=== PATIENT | female | born 2000 | race Caucasian/White ===

== ENCOUNTER 2019-10-09 16:09 | Emergency (ER) | payer SELFPAY ==
[~2019-10-09] VITALS: Ht 175 cm; Wt 88.6 kg
--- NOTE | 2019-10-09 16:32 | ED Lower Extremity ---
General Chief Complaint: Lower Extremity Stated Complaint: R KNEE PAIN Nursing Triage Note: PT TO ED W/ C/O RT KNEE PAIN ONSET AFTER BEING STRUCK BY HER DOG AT HOME. Nursing Sepsis Screen: No Definite Risk Source: patient Exam Limitations: no limitations History of Present Illness Date Seen by Provider: Oct 09, 2019 Time Seen by Provider: 16:29 Initial Comments To ER with right knee pain. She was standing with her knee locked, her dog. The medial aspect of the lower leg causing it to buckle Onset: just prior to arrival Pain/Injury Location: right knee Method of Injury: direct blow Modifying Factors: Worse With Movement Allergies and Home Medications Patient Home Medication List Home Medication List Reviewed: Yes Review of Systems Constitutional: see HPI EENTM: see HPI Respiratory: no symptoms reported Cardiovascular: no symptoms reported Genitourinary: no symptoms reported Musculoskeletal: see HPI Skin: no symptoms reported Psychiatric/Neurological: No Symptoms Reported Past Mxpafum-Zddawz-Tygwgz Hx Patient Social History Alcohol Use: Denies Use Recreational Drug Use: No Smoking Status: Current Everyday Smoker Type Used: Electronic/Vapor Recent Foreign Travel: No Contact w/Someone Who Travel: No Recent Infectious Disease Expo: No Recent Hopitalizations: No Past Medical History Surgeries: Yes (DENTAL) Respiratory: No Cardiac: No Neurological: No Genitourinary: No Gastrointestinal: No Musculoskeletal: Yes Scoliosis Endocrine: No HEENT: No Cancer: No Psychosocial: Yes ADD/ADHD, Sleep Difficulties, Anxiety, Suicide Attempts, Bipolar, Schizophrenia, Depression Integumentary: No Blood Disorders: No Physical Exam Vital Signs Vital Signs - First Documented 10/09/19 16:19 Temp 36.9 Pulse 81 Resp 18 B/P (MAP) 111/77 (88) Pulse Ox 98 O2 Delivery Room Air Capillary Refill : Less Than 3 Seconds Height, Weight, BMI Height: '" Weight: lbs. oz. kg; 28.00 BMI Method: General Appearance: WD/WN, no apparent distress HEENT: PERRL/EOMI, normal ENT inspection Respiratory: no respiratory distress, no accessory muscle use (.) Hips: bilateral hip non-tender, bilateral hip normal inspection, bilateral hip normal range of motion Legs: bilateral leg non-tender, bilateral leg normal inspection, bilateral leg normal range of motion Knees: left knee non-tender; bilateral knee normal inspection, bilateral knee normal range of motion; right knee pain, right knee other (no palpable effusion and ecchymosis erythema or ligamentous instability) Feet: bilateral foot non-tender, bilateral foot normal inspection, bilateral foot normal range of motion Neurologic/Psychiatric: alert, normal mood/affect, oriented x 3 Skin: normal color, warm/dry Progress/Results/Core Measures Results/Orders My Orders Orders - NAOMIE CORONA APRN Knee, Right, 3 Views (10/09/19 16:18) Vital Signs/I&O 10/09/19 16:19 Temp 36.9 Pulse 81 Resp 18 B/P (MAP) 111/77 (88) Pulse Ox 98 O2 Delivery Room Air Blood Pressure Mean: 88 Departure Impression Primary Impression: Internal derangement of right knee Disposition: HOME, SELF-CARE Condition: Stable Departure-Patient Inst. Decision time for Depature: 16:31 Referrals: NO,LOCAL PHYSICIAN (PCP) Primary Care Physician Patient Instructions: Internal Derangement of the Knee Add. Discharge Instructions: 1. Crutches as needed for pain with walking. Whenever you're able to walk without significant pain then you can quit using the crutches. Pain persists into next week follow up with primary care to discuss MRI. NAOMIE CORONA APRN Oct 09, 2019 16:32
--- NOTE | 2019-10-09 16:37 | NUR ---
PT IN RADIOLOGY AT THIS TIME.
--- NOTE | 2019-10-09 17:04 | Diagnostic Imaging Report ---
INDICATION: Injury, right knee pain. EXAMINATION: Three views of the right knee were obtained. FINDINGS: No fracture, dislocation or other abnormality. IMPRESSION: Normal right knee. Dictated by: Dictated on workstation # [id number]
[2019-10-09 17:18] VITALS: BP 0/0
--- NOTE | 2019-10-09 17:18 | NUR ---
PT DISCHARGED TO HOME W/ CRUTCHES ET INSTR. PT TO F/U W/ PCP ET RETURN IF SYMPTOMS CHANGE OR GET WORSE. UNDERSTANDING VOICED.
--- OUTSIDE RECORDS SUMMARY | 2019-10-10 20:20 | XMS REPORT | Clinical Summary ---
Author Author Admin, Son Rodriguez [facility] Address Unknown Phone Unavailable Allergies, Adverse Reactions, Alerts Allergy Name Reaction Description Start Date Severity Status Pr ovider PEANUT BUTTER Critical Active Breanne Morgan PN ABILIFY shaking Critical Active Saskia Dumont PhD Conditions or Problems Problem Name Problem Code Onset Date Status Entry Date Provider Comment Standard Description Annotate WEIGHT GAIN 783.1 Resolved Ned Navarrete MD Abnormal weight gain BIPOLAR DISORDER 296.7 Active Ned Dumont Bipolar I disorder, most recent episode (or current) unspecified ALLERGIC RHINITIS 477.9 Active Ned Navarrete MD Allergic rhinitis, cause unspecified GERD 530.81 Active Ned Navarrete MD Esophageal reflux NASOLACRIMAL DUCT OBSTRUCTION, LEFT 375.56 Correction Ned Navarrete MD Stenosis of nasolacrimal duct, acquired ANKLE SPRAIN 845.00 Resolved Ned Navarrete MD Unspecified site of ankle sprain NASOLACRIMAL DUCT OBSTRUCTION, RIGHT 375.56 Resolved Ned Navarrete MD Stenosis of nasolacrimal duct, acquired CONTRACEPTION V25.09 Active Ned Navarrete MD Encounter for other general counseling and advice on contraceptive management DERMATITIS, ALLERGIC 692.9 Resolved Saskia Simon MD PhD Contact dermatitis and other eczema, unspecified cause COSTOCHONDRITIS 733.6 Resolved 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 CONCUSSION WITH NO LOSS OF CONSCIOUSNESS 850.0 Resolv ed Ned Navarrete MD Concussion with no loss of consciousness VISUAL CHANGES 368.10 Resolved Ned Navarrete MD Subjective visual disturbance, unspecified SINUSITIS, ACUTE 461.9 Resolved Ned Navarrete MD Acute sinusitis, unspecified WELL CHILD V20.2 Active Ned Navarrete MD Routine infant or child health check HERPES GENITALIS 054.10 Active Ned Dumont Genital herpes, unspecified Pharyngitis, acute 462 Resolved Ned manley MD Acute pharyngitis Epigastric pain 789.06 Active Ned Navarrete MD Abdominal pain, epigastric Dizziness 780.4 Active Ned Navarrete MD Dizziness and giddiness Gastroenteritis 558.9 Resolved Ned Dumont Other and unspecified noninfectious gastroenteritis and colitis Amenorrhea 626.0 Active Ned Navarrete MD Absence of menstruation Gastroenteritis Inactive George Frances MD Other and unspecified noninfectious gastroenteritis and colitis Folliculitis 704.8 Active Toni Washington DO Other specified diseases of hair and hair follicles Supervision of other normal V22.1 Active Ned Navarrete MD Supervision of other normal Drug use complicating , second trimester 648.33 2016 Active Missy PINEDA Drug dependence comp licating , childbirth, or the puerperium, antepartum condition or complication Methamphetamine abuse 305.70 Inactive Oneil DAWSONT Amphetamine or related acting sympathomimetic abuse, u nspecified use 20 weeks gestation of V28.9 Inactive 2016 Missy Hayes LRT Encounter for unspecified scre ening of mother 22 weeks gestation of V28.9 Active 2016 Missy Hayes LRT Encounter for unspecified scre ening of mother Methamphetamine abuse 305.70 Active Ned Prescott MD Amphetamine or related acting sympathomimetic abuse, unspecified use WEIGHT GAIN ICD-783.1 Inactive Ned Navarrete MD NASOLACRIMAL DUCT OBSTRUCTION, LEFT ICD-375.56 Inactive Ned Navarrete MD ANKLE SPRAIN ICD-845.00 Inactive Ned manley MD NASOLACRIMAL DUCT OBSTRUCTION, RIGHT ICD-375.56 Inactive Ned Navarrete MD DERMATITIS, ALLERGIC ICD-692.9 Inactive Saskia Simon MD PhD COSTOCHONDRITIS ICD-733.6 Inactive Saskia Simon MD PhD CONCUSSION WITH NO LOSS OF CONSCIOUSNESS ICD-850.0 Inactive Ned Navarrete MD VISUAL CHANGES ICD-368.10 Inactive Ned Prescott MD SINUSITIS, ACUTE ICD-461.9 Inactive Ned pérez MD Pharyngitis, acute ICD-462 Inactive Ned Navarrete MD Gastroenteritis ICD-558.9 Inactive Ned Prescott MD Gastroenteritis Inactive George Frances MD Methamphetamine abuse ICD-305.70 Inactive Andreea Hayes LRT 20 weeks gestation of ICD-V28.9 Inac clarence Hayes LRT Medication List Medication Instructions Start Date Stop Date Generic Name NDC Status Provider Patient Instruction LATUDA 20 MG ORAL TABS LURASIDONE HCL 7343037 0230 Active Breanne Madl DEVELOPER EVANGELIST Active CEPHALEXIN 500 MG ORAL CAPS CEPHALEXIN 253096 41557 Active Breanne Madl DEVELOPER EVANGELIST Active LORATADINE 10 MG TABS 1 tablet by mouth daily L ORATADINE 43394163085 No Longer Active Breanne Madl DEVELOPER EVANGELIST Active HYDROXYZINE HCL 25 MG TABS Take 1-2 tablets daily 2015 HYDROXYZINE HCL 26557413071 No Longer Active Breanne Madl DEVELOPER EVANGELIST Active ORTHO TRI-CYCLEN (28) 0.18/0.215/0.25 MG-35 MCG TABS 1 daily NORGESTIM-ETH ESTRAD TRIPHASIC 43388244141 No Longer Active Breanne Madl DEVELOPER EVANGELIST Active CLARITIN 10 MG TAB 1 tablet by mouth daily as needed for itchy r khari LORATADINE 15141360678 No Longer Active Ned Navarrete MD Active AUGMENTIN 875-125 MG TAB 1 po BID x 10 days with food AMOXICILLIN-POT CLAVULANATE 07230926409 No Longer Active Toni Washington DO Active ORTHO TRI-CYCLEN (28) 0.18/0.215/0.25 MG-35 MCG TABS 1 daily NORGESTIM-ETH ESTRAD TRIPHASIC 16046049474 No Longer Active Ned Navarrete MD Active ZOFRAN ODT 4 MG TBDP 1 po q6hr PRN Nausea ONDAN SETRON 90223786054 No Longer Active Ned Navarrete MD Active [facility] MELATONIN 3 MG TABS Take 1 tablet at bedtime. 2013 MELATONIN 50984918636 No Longer Active Ned Navarrete MD Activ e BIOTIN 1000 MCG TABS Take 2 tablets daily BIOTI N 46359924845 No Longer Active Ned Navarrete MD Active OMEPRAZOLE 20 MG CPDR 1 tablet by mouth daily O MEPRAZOLE 07693508772 No Longer Active Mariana Josué PROVIDER ENGAGEMENT EXECUTIVE Active LATUDA 80 MG TABS 1 tablet daily LURASIDONE HCL 15615608540 No Longer Active Mariana Moses APRN Active ZOVIRAX 400 MG TABS Take 1 tablet every 8 hours as needed 2 ACYCLOVIR 76382649412 No Longer Active Ned Navarrete MD Activ e ZITHROMAX Z-CHACE 250 MG TABS 2 today, then 1 daily for 4 days 201 10/06/11 AZITHROMYCIN 80890796696 No Longer Active Ned Navarrete MD Active TOPAMAX 100 MG TABS 1 tablet daily TOPIRAMATE 54 027644870 No Longer Active Ned Navarrete MD Active AMOXICILLIN 500 MG CAPS 2 po BID x 10 days AMOX ICILLIN 86697609156 No Longer Active Saskia Simon MD PhD Active NAPROSYN 375 MG TAB 1 twice a day as needed for chest pain 04/01 NAPROXEN 85308978873 No Longer Active Saskia Simon MD PhD Active HYDROCORTISONE 2.5 % EXT CREA Apply three times a day to aff ected area HYDROCORTISONE 76653097928 No Longer Active Ned Navarrete MD Active TOPIRAMATE 50 MG TABS 1 QD TOPIRAMATE 22414115270 No Longer Active Ned Navarrete MD Active FANAPT 6 MG TABS 1 BID ILOPERIDONE 70032193581 No L onger Active Ned Navarrete MD Active CIPROFLOXACIN HCL 0.3 % SOLN 1 drop in right eye every 2 hours for 2 days, then 1 drop four times a day CIPROFLOXACIN HCL 33070747798 No Longer Active Ned Navarrete MD Active LORATADINE 10 MG TABS 1 tablet by mouth daily L ORATADINE 71145649753 No Longer Active Ned Navarrete MD Active RANITIDINE HCL 150 MG CAPS 1 twice a day RANITI DINE HCL 28818785227 No Longer Active Ned Navarrete MD Active RANITIDINE HCL 150 MG CAPS 1 twice a day RANITIDINE HCL 150 MG CAPS 758461 RANITIDINE HCL Inactive LORATADINE 10 MG TABS 1 tablet by mouth daily LORATADINE 10 MG TABS 172451 LORATADINE Inactive CIPROFLOXACIN HCL 0.3 % SOLN 1 drop in right eye every 2 hours for 2 days, then 1 drop four times a day CIPROFLOXACIN HCL 0.3 % SOLN 394533 CIPROFLOXACIN HCL Inactive FANAPT 6 MG TABS 1 BID FANAPT 6 MG TABS ILO PERIDONE Inactive TOPIRAMATE 50 MG TABS 1 QD TOPIRAMATE 50 MG TABS 1 54428 TOPIRAMATE Inactive HYDROCORTISONE 2.5 % EXT CREA Apply three times a day to aff ected area HYDROCORTISONE 2.5 % EXT CREA 053216 HYDROCORTIS ONE Inactive NAPROSYN 375 MG TAB 1 twice a day as needed for chest pain 04/01 NAPROSYN 375 MG TAB NAPROXEN Inactive TOPAMAX 100 MG TABS 1 tablet daily TOPAMAX 100 MG TABS 170671 TOPIRAMATE Inactive ZOVIRAX 400 MG TABS Take 1 tablet every 8 hours as needed 2 ZOVIRAX 400 MG TABS 756467 ACYCLOVIR Inactive LATUDA 80 MG TABS 1 tablet daily LATUDA 80 MG TA BS LURASIDONE HCL Inactive OMEPRAZOLE 20 MG CPDR 1 tablet by mouth daily OMEPRAZOLE 20 MG CPDR 668159 OMEPRAZOLE Inactive BIOTIN 1000 MCG TABS Take 2 tablets daily BIOTIN 1000 MCG TABS 346594 BIOTIN Inactive [facility] MELAT[facility]IN 3 MG TABS Take 1 tablet at bedtime. 2013 [facility] MELATONIN 3 MG TABS 309156 MELATONIN Inactive ZOFRAN ODT 4 MG TBDP 1 po q6hr PRN Nausea ZOFRAN ODT 4 MG TBDP 608736 ONDANSETRON Inactive ORTHO TRI-CYCLEN (28) 0.18/0.215/0.25 MG-35 MCG TABS 1 daily ORTHO TRI-CYCLEN (28) 0.18/0.215/0.25 MG-35 MCG TABS 302396 NORGESTIM-ETH ESTRAD TRIPHASIC Inactive CLARITIN 10 MG TAB 1 tablet by mouth daily as needed for itchy r khari CLARITIN 10 MG TAB 223271 LORATADINE Inactive ORTHO TRI-CYCLEN (28) 0.18/0.215/0.25 MG-35 MCG TABS 1 daily ORTHO TRI-CYCLEN (28) 0.18/0.215/0.25 MG-35 MCG TABS 761572 NORGESTIM-ETH ESTRAD TRIPHASIC Inactive HYDROXYZINE HCL 25 MG TABS Take 1-2 tablets daily 2015 HYDROXYZINE HCL 25 MG TABS 606776 HYDROXYZINE HCL Inactive LORATADINE 10 MG TABS 1 tablet by mouth daily LORATADINE 10 MG TABS 319462 LORATADINE Inactive AMOXICILLIN 500 MG CAPS 2 po BID x 10 days AMOXICILLIN 500 MG CAPS 438761 AMOXICILLIN Inactive ZITHROMAX Z-CHACE 250 MG TABS 2 today, then 1 daily for 4 days 201 10/06/11 ZITHROMAX Z-CHACE 250 MG TABS 0311000 AZITHROMYCIN Inac tive AUGMENTIN 875-125 MG TAB 1 po BID x 10 days with food AUGMENTIN 875-125 MG TAB 704328 AMOXICILLIN-POT CLAVULANATE Inactiv e Advance Directives Directive Description Start Date CONSENT FOR MINOR CARE Immunizations Vaccine Administration Date Value Standard Desmond cription Hepatitis A vaccine, ped/adol, 2 dose (H avrix 2 dose ped/adol, Vaqta ped/adol), #2 Havrix (2 dose - Ped/Adol) [CVX83] hepat itis A vaccine, pediatric/adolescent dosage, 2 dose schedule Human Papillomavirus vaccine (Gardasil) #2, (HPV #2) 2011/1 1/08 Gardasil [CVX62] human papilloma virus vaccine, quadrival ent Seasonal influenza vaccine, injectable, preservative free, for > 3 years old (Afluria, FluLaval, Fluzone, Fluvirin, Fluarix, Agriflu(>= 18 yo)) Fluzone preservative free (>3 yrs.) [IDA800] Influenza, seasonal, injectable, preservative free MPSV4 (meningococcal polysaccharide vaccination) Menactra meningococcal polysaccharide vaccine (MPSV4) hepatitis A immunization #1 Havrix-Pedi hepa titis A vaccine, unspecified formulation Adacel (Tetanus, reduced Diphtheria, and acellular Per tussis Immunization) Adacel [[id number]] tetanus toxoid, reduced diph theria toxoid, and acellular pertussis vaccine, adsorbed influenza immunization (Flu Vax) has been administered 2 Historical influenza virus vaccine, unspecified formulation DPT immunization #5 Historical oral polio vaccine (OPV) #4 Historical case ovirus vaccine, unspecified formulation MMR (measles, mumps, rubella) virus immunization #2 Historical DPT immunization #4 Historical Hemophilus influenza B immunization #4 Historica l Haemophilus influenzae type b vaccine, conjugate unspecified formulation oral polio vaccine (OPV) #3 Historical case ovirus vaccine, unspecified formulation MMR (measles, mumps, rubella) virus immunization #1 Historical hepatitis B vaccine #3 Historical hepatitis B vaccine, unspecified formulation DPT immunization #3 Historical Hemophilus influenza B immunization #3 Historica l Haemophilus influenzae type b vaccine, conjugate unspecified formulation DPT immunization #2 Historical Hemophilus influenza B immunization #2 Historica l Haemophilus influenzae type b vaccine, conjugate unspecified formulation oral polio vaccine (OPV) #2 Historical case ovirus vaccine, unspecified formulation hepatitis B vaccine #2 given Historical hep atitis B vaccine, unspecified formulation DPT immunization #1 Historical Hemophilus influenza B immunization #1 Historica l Haemophilus influenzae type b vaccine, conjugate unspecified formulation oral polio vaccine (OPV) #1 Historical case ovirus vaccine, unspecified formulation hepatitis B vaccine #1 given Historical hep atitis B vaccine, unspecified formulation Vital Signs Date Name Value Unit Range Description blood pressure, diastolic - 8462-4 66 mm[Hg] BP michele blood pressure, systolic - 8480-6 99 mm[Hg] BP sys pulse rate E&M - 8867-4 88 /min H eart rate temperature E&M 98.7 [degF] Body temp erature weight E&M - 3141-9 139.5 [lb_av] Weigh t Measured blood pressure, diastolic - 8462-4 75 mm[Hg] BP michele blood pressure, systolic - 8480-6 107 mm[Hg] BP sys pulse rate E&M - 8867-4 94 /min H eart rate temperature E&M 98.9 [degF] Body temp erature weight E&M - 3141-9 125.0 [lb_av] Weigh t Measured blood pressure, diastolic - 8462-4 67 mm[Hg] BP michele blood pressure, systolic - 8480-6 113 mm[Hg] BP sys pulse rate E&M - 8867-4 110 /min H eart rate temperature E&M 98.5 [degF] Body temp erature weight E&M - 3141-9 123 [lb_av] Weigh t Measured blood pressure, diastolic - 8462-4 66 mm[Hg] BP michele blood pressure, systolic - 8480-6 102 mm[Hg] BP sys pulse rate E&M - 8867-4 90 /min H eart rate temperature E&M 98.9 [degF] Body temp erature weight E&M - 3141-9 123 [lb_av] Weigh t Measured temperature E&M 99.9 [degF] Body temp erature weight E&M - 3141-9 120.4 [lb_av] Weigh t Measured Diagnostic Results Date Name Value Unit Range Description Lab Report: ABO GROUP & RH TYPE, ANTIBOD Y SCREEN, RBCW/REFL I, CBC (INCL ... - Blood bank Rh antigen RH(D) POSITIVE antibody screen, serum NO ANTIBODIES DETECTED Lab Report: ABO GROUP & RH TYPE, ANTIBOD Y SCREEN, RBCW/REFL I, CBC (INCL ... - Chemistry hepatitis B surface antigen NON-REACTIVE NON-RE ACTIVE rapid plasma reagin antibody titer NON-REACTIVE NON-REACTIVE Lab Report: ABO GROUP & RH TYPE, ANTIBOD Y SCREEN, RBCW/REFL I, CBC (INCL ... - Hematology Blood type A leukocyte count, blood 7.5 THOUSAND/UL 10*3/mm3 4.5-13.0 erythrocyte (RBC) count 4.38 MILLION/UL 10*6/mm3 3.80-5. 10 hemoglobin, blood 13.4 g/dL 11.5-15.3 hematocrit, blood 39.9 % 34.0-46.0 mean corpuscular volume, RBC 91.0 fL 78.0-98 .0 mean corpuscular hemoglobin, RBC 30.5 pg 25. 0-35.0 mean corpuscular hemoglobin concentration, RBC 33.5 G/DL % 31.0-36.0 red blood cell distribution width 14.4 % 11 .0-15.0 platelet count 210 THOUSAND/UL 10*3/mm3 774-768 3187/11/02 mean platelet volume 10.3 fL 7.5-11.5 Lab Report: ABO GROUP & RH TYPE, ANTIBOD Y SCREEN, RBCW/REFL I, CBC (INCL ... - Lab chlamydia DNA probe NOT DETECTED NOT DETECTED Lab Report: ABO GROUP & RH TYPE, ANTIBOD Y SCREEN, RBCW/REFL I, CBC (INCL ... - Microbiology Neisseria gonorrhoeae DNA probe NOT DETECTED NO T DETECTED Lab Report: ABO GROUP & RH TYPE, ANTIBOD Y SCREEN, RBCW/REFL I, CBC (INCL ... - Serology rubella antibody, serum, IgG 1.08 Lab Report: Thyroid Stimulating Hormone (L), UADIP W/MICRO, AUTO - Chemistry RBC, urine, dipstick Negative Negative TSH 2.68 m[iU]/mL 0.36-3.74 protein, total urine random Negative mg/dL Negative Lab Report: Thyroid Stimulating Hormone (L), UADIP W/MICRO, AUTO - Urinalysis glucose, urine, semiquantitative Negative Neg ative ketones, urine, by test strip Negative Negati ve bilirubin, urine Negative Negative urine color Yellow Colorless;Lightyellow;St raw;Yellow appearance, urine Clear Clear specific gravity, urine <=1.005 1.000-1.030 pH, urine, semiquantitative 6.5 5.0-8.5 urobilinogen, urine, semiquantitative (dipstick) 0.2 Normal leukocyte esterase, urine, by dipstick Negative Negative nitrite, urine, semiquantitative Negative Neg ative Encounters Code Encounter Date Provider Facility CPT-60370 Level 2 Est. Patient 12:43:40 CDT Ned Navarrete MD [facility] CPT-81174 Level 3 Est. Patient 14:38:48 CDT Toni duque DO [facility] CPT-22679 Level 3 Est. Patient 09:02:58 FIREARMS INSPECTOR George paulson MD [facility] CPT-49231 Level 3 Est. Patient 17:42:32 CDT Ned Navarrete MD [facility] CPT-92153 Level 3 Est. Patient 11:04:31 FIREARMS INSPECTOR Mariana Torrez APRN [facility] CPT-89749 Level 4 Est. Patient 12:27:05 FIREARMS INSPECTOR Ned Navarrete MD [facility] CPT-56995 Level 3 Est. Patient 11:31:58 FIREARMS INSPECTOR Ned Navarrete MD [facility] CPT-94588 Level 3 Est. Patient 16:49:32 CDT Ned Navarrete MD [facility] CPT-74324 Level 4 Est. Patient 14:11:59 FIREARMS INSPECTOR Saskia green MD PhD [facility] CPT-85744 Level 3 Est. Patient 17:34:25 CDT Ned Navarrete MD [facility] CPT-23472 Level 3 Est. Patient 17:34:19 CDT Ned Navarrete MD [facility] CPT-94906 Level 3 Est. Patient 13:46:05 CDT Ned Navarrete MD [facility] CPT-28649 Level 3 Est. Patient 16:55:47 FIREARMS INSPECTOR Ned Navarrete MD [facility] CPT-47720 Level 2 Est. Patient 17:33:08 FIREARMS INSPECTOR Ned Navarrete MD [facility] CPT-88464 Level 3 Est. Patient 16:25:26 FIREARMS INSPECTOR Ned Navarrete MD [facility] Procedures Code Procedure Name Date Entry Date Standard Desc ription CPT-72811 Visit 16:49:41 FIREARMS INSPECTOR CPT-04479 Sono OB limited - XRAY USE ONLY 16:38:01 CS T CPT-29214 Sono OB comp > 14 weeks - XRAY USE ONLY 17:00:59 FIREARMS INSPECTOR CPT-28603 UA w micro - LAB USE ONLY 16:59:38 CDT 2015 CPT-21182 TSH - LAB USE ONLY 16:59:38 CDT CPT-70696 Venipuncture Draw Fee 16:59:38 CDT CPT-99628 Spec Collection and Handling Fee 14:01:24 C DT CPT-15528 Visit 14:01:24 CDT CPT-033 PENDING SALE TO [facility] Med Screen 14:03:18 CDT CPT-033 PENDING SALE TO [facility] Med Screen 11:04:57 CDT CPT-033 PENDING SALE TO [facility] Med Screen 10:29:44 CDT CPT-70990 Administration 2+ single or combination vaccines inc oral 14:02:47 FIREARMS INSPECTOR CPT-20867 Administration single or combination vac cine inc oral 14:02:47 FIREARMS INSPECTOR CPT-58420 Hepatitis A ped/adol 2 dose schedule 14:02:47 FIREARMS INSPECTOR CPT-64882 Gardasil 14:02:47 FIREARMS INSPECTOR CPT-97542 Administration single or combination vac cine inc oral 11:40:38 FIREARMS INSPECTOR CPT-12879 Gardasil 11:40:38 FIREARMS INSPECTOR CPT-93722 Administration single or combination vac cine inc oral 09:45:00 CDT CPT-83819 Influenza Preservative Free split virus >age 3 09:45:00 CDT CPT-77765 Venipuncture Draw Fee 07:59:02 CDT
--- OUTSIDE RECORDS SUMMARY | 2019-10-10 20:20 | XMS REPORT | Clinical Summary ---
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 Missy PINEDA Amphetamine or related acting sympathomimetic abuse, unspecified use 20 weeks gestation of V28.9 Inactive 2016 Missy PINEDA Encounter for unspecified scre ening of mother WEIGHT GAIN ICD-783.1 Inactive Ned Navarrete MD [...] Prescott MD Gastroenteritis Inactive George Frances MD 20 weeks gestation of ICD-V28.9 [facility] LRT Medication List Medication Instructions Start Date Stop Date Generic Name NDC Status Provider Patient Instruction LATUDA 20 MG ORAL TABS LURASIDONE HCL 1348747 0230 Active Breanne Madl SEMICONDUCTOR ASSEMBLER Active CEPHALEXIN 500 MG ORAL CAPS CEPHALEXIN 977064 24346 Active Breanne Madl SEMICONDUCTOR ASSEMBLER Active LORATADINE 10 MG TABS 1 tablet by mouth daily L ORATADINE 49562066891 No Longer Active Breanne Madl SEMICONDUCTOR ASSEMBLER Active HYDROXYZINE HCL 25 MG TABS Take 1-2 tablets daily 2015 HYDROXYZINE HCL 13245782450 No Longer Active Breanne Marcos SEMICONDUCTOR ASSEMBLER Active ORTHO TRI-CYCLEN (28) 0.18/0.215/0.25 MG-35 MCG TABS 1 daily NORGESTIM-ETH ESTRAD TRIPHASIC 04508435796 No Longer Active Breanne Myersl SEMICONDUCTOR ASSEMBLER Active CLARITIN 10 MG TAB 1 tablet by mouth daily as needed for itchy r khari LORATADINE 50972971028 No Longer Active Ned Navarrete MD Active AUGMENTIN 875-125 MG TAB 1 po BID x 10 days with food AMOXICILLIN-POT CLAVULANATE 14163852021 No Longer Active Toni Washington DO Active ORTHO TRI-CYCLEN (28) 0.18/0.215/0.25 MG-35 MCG TABS 1 daily NORGESTIM-ETH ESTRAD TRIPHASIC 96305269588 No Longer Active Ned Navarrete MD Active ZOFRAN ODT 4 MG TBDP 1 po q6hr PRN Nausea ONDAN SETRON 60227788239 No Longer Active Ned Navarrete MD Active [facility]EL[facility] 3 MG TABS Take 1 tablet at bedtime. 2013 MELATONIN 70369018341 No Longer Active Ned Navarrete MD Activ e BIOTIN 1000 MCG TABS Take 2 tablets daily BIOTI N 57431156366 No Longer Active Ned Navarrete MD Active OMEPRAZOLE 20 MG CPDR 1 tablet by mouth daily O MEPRAZOLE 86537482964 No Longer Active Mariana Moses APRN Active LATUDA 80 MG TABS 1 tablet daily LURASIDONE HCL 56083255154 No Longer Active Mariana Moses APRN Active ZOVIRAX 400 MG TABS Take 1 tablet every 8 hours as needed 2 ACYCLOVIR 39790649799 No Longer Active Ned Navarrete MD Activ e ZITHROMAX Z-CHACE 250 MG TABS 2 today, then 1 daily for 4 days 201 10/06/11 AZITHROMYCIN 93931658222 No Longer Active Ned Navarrete MD Active TOPAMAX 100 MG TABS 1 tablet daily TOPIRAMATE 54 047390042 No Longer Active Ned Navarrete MD Active AMOXICILLIN 500 MG CAPS 2 po BID x 10 days AMOX ICILLIN 39139424771 No Longer Active Saskia Simon MD PhD Active NAPROSYN 375 MG TAB 1 twice a day as needed for chest pain 04/01 NAPROXEN 37002957998 No Longer Active Saskia Simon MD PhD Active HYDROCORTISONE 2.5 % EXT CREA Apply three times a day to aff ected area HYDROCORTISONE 43551385709 No Longer Active Ned Navarrete MD Active TOPIRAMATE 50 MG TABS 1 QD TOPIRAMATE 48515983565 No Longer Active Ned Navarrete MD Active FANAPT 6 MG TABS 1 BID ILOPERIDONE 21526539102 No L onger Active Ned Navarrete MD Active CIPROFLOXACIN HCL 0.3 % SOLN 1 drop in right eye every 2 hours for 2 days, then 1 drop four times a day CIPROFLOXACIN HCL 86071892267 No Longer Active Ned Navarrete MD Active LORATADINE 10 MG TABS 1 tablet by mouth daily L ORATADINE 52324310872 No Longer Active Ned Navarrete MD Active RANITIDINE HCL 150 MG CAPS 1 twice a day RANITI DINE HCL 31186843995 No Longer Active Ned Navarrete MD Active RANITIDINE HCL 150 MG CAPS 1 twice a day RANITIDINE HCL 150 MG CAPS 935900 RANITIDINE HCL Inactive LORATADINE 10 MG TABS 1 tablet by mouth daily LORATADINE 10 MG TABS 397987 LORATADINE Inactive CIPROFLOXACIN HCL 0.3 % SOLN 1 drop in right eye every 2 hours for 2 days, then 1 drop four times a day CIPROFLOXACIN HCL 0.3 % SOLN 696084 CIPROFLOXACIN HCL Inactive FANAPT 6 MG TABS 1 BID FANAPT 6 MG TABS ILO PERIDONE Inactive TOPIRAMATE 50 MG TABS 1 QD TOPIRAMATE 50 MG TABS 1 75811 TOPIRAMATE Inactive HYDROCORTISONE 2.5 % EXT CREA Apply three times a day to aff ected area HYDROCORTISONE 2.5 % EXT CREA 923430 HYDROCORTIS ONE Inactive NAPROSYN 375 MG TAB 1 twice a day as needed for chest pain 04/01 NAPROSYN 375 MG TAB NAPROXEN Inactive TOPAMAX 100 MG TABS 1 tablet daily TOPAMAX 100 MG TABS 615557 TOPIRAMATE Inactive ZOVIRAX 400 MG TABS Take 1 tablet every 8 hours as needed 2 ZOVIRAX 400 MG TABS 077007 ACYCLOVIR Inactive LATUDA 80 MG TABS 1 tablet daily LATUDA 80 MG TA BS LURASIDONE HCL Inactive OMEPRAZOLE 20 MG CPDR 1 tablet by mouth daily OMEPRAZOLE 20 MG CPDR 632917 OMEPRAZOLE Inactive BIOTIN 1000 MCG TABS Take 2 tablets daily BIOTIN 1000 MCG TABS 358715 BIOTIN Inactive [facility] M[facility] 3 MG TABS Take 1 tablet at bedtime. 2013 [facility] MEL[facility] 3 MG TABS 378368 MELATONIN Inactive ZOFRAN ODT 4 MG TBDP 1 po q6hr PRN Nausea ZOFRAN ODT 4 MG TBDP 455324 ONDANSETRON Inactive ORTHO TRI-CYCLEN (28) 0.18/0.215/0.25 MG-35 MCG TABS 1 daily ORTHO TRI-CYCLEN (28) 0.18/0.215/0.25 MG-35 MCG TABS 383086 NORGESTIM-ETH ESTRAD TRIPHASIC Inactive CLARITIN 10 MG TAB 1 tablet by mouth daily as needed for itchy r khari CLARITIN 10 MG TAB 272357 LORATADINE Inactive ORTHO TRI-CYCLEN (28) 0.18/0.215/0.25 MG-35 MCG TABS 1 daily ORTHO TRI-CYCLEN (28) 0.18/0.215/0.25 MG-35 MCG TABS 727370 NORGESTIM-ETH ESTRAD TRIPHASIC Inactive HYDROXYZINE HCL 25 MG TABS Take 1-2 tablets daily 2015 HYDROXYZINE HCL 25 MG TABS 215799 HYDROXYZINE HCL Inactive LORATADINE 10 MG TABS 1 tablet by mouth daily LORATADINE 10 MG TABS 186797 LORATADINE Inactive AMOXICILLIN 500 MG CAPS 2 po BID x 10 days AMOXICILLIN 500 MG CAPS 274487 AMOXICILLIN Inactive ZITHROMAX Z-CHACE 250 MG TABS 2 today, then 1 daily for 4 days 201 10/06/11 ZITHROMAX Z-CHACE 250 MG TABS 0524187 AZITHROMYCIN Inac tive AUGMENTIN 875-125 MG TAB 1 po BID x 10 days with food AUGMENTIN 875-125 MG TAB 559914 AMOXICILLIN-POT CLAVULANATE Inactiv e Advance Directives Directive Description Start Date CONSENT FOR MINOR CARE Immunizations Vaccine Administration Date Value Standard Desmond cription Hepatitis A vaccine, ped/adol, 2 dose (H avrix 2 dose ped/adol, Vaqta ped/adol), #2 Havrix (2 dose - Ped/Adol) [CVX83] hepat itis A vaccine, pediatric/adolescent dosage, 2 dose schedule Human Papillomavirus vaccine (Gardasil) #2, (HPV #2) 08/04 Gardasil [CVX62] human papilloma virus vaccine, quadrival ent Seasonal influenza vaccine, injectable, preservative free, for > 3 years old (Afluria, FluLaval, Fluzone, Fluvirin, Fluarix, Agriflu(>= 18 yo)) Fluzone preservative free (>3 yrs.) [CSJ086] Influenza, seasonal, injectable, preservative free MPSV4 (meningococcal polysaccharide vaccination) Menactra meningococcal polysaccharide vaccine (MPSV4) hepatitis A immunization #1 Havrix-Pedi hepa titis A vaccine, unspecified formulation Adacel (Tetanus, reduced Diphtheria, and acellular Per tussis Immunization) Adacel [ZBM304] tetanus toxoid, reduced diph theria toxoid, and [...] Range Description blood pressure, diastolic - 8462-4 75 mm[Hg] [...] 11 .0-15.0 platelet count 210 THOUSAND/UL 10*3/mm3 364-383 3876/11/02 mean platelet volume 10.3 fL 7.5-11.5 Lab [...] ative Encounters Code Encounter Date Provider Facility CPT-08959 Level 2 Est. Patient 12:43:40 CDT Ned Navarrete MD [facility]-76292 Level 3 Est. Patient 14:38:48 CDT Toni duque DO [facility]-58364 Level 3 Est. Patient 09:02:58 WEAVER WIRE LOOM George paulson MD [facility]-32165 Level 3 Est. Patient 17:42:32 CDT Ned Navarrete MD [facility] CPT-18859 Level 3 Est. Patient 11:04:31 WEAVER W[employer] LOOM Mariana Torrez APRN [facility] CPT-84010 Level 4 Est. Patient 12:27:05 WEAVER WIRE LOOM Ned Navarrete MD [facility]-93915 Level 3 Est. Patient 11:31:58 WEAVER WIRE LOOM Ned Navarrete MD [facility]-77685 Level 3 Est. Patient 16:49:32 CDT Ned Navarrete MD [facility] CPT-46630 Level 4 Est. Patient 14:11:59 WEAVER WIRE LOOM Saskia green MD PhD [facility]-77509 Level 3 Est. Patient 17:34:25 CDT Ned Navarrete MD [facility]-97709 Level 3 Est. Patient 17:34:19 CDT Ned Navarrete MD [facility]-36865 Level 3 Est. Patient 13:46:05 CDT Ned Navarrete MD [facility] CPT-65667 Level 3 Est. Patient 16:55:47 WEAVER WIRE LOOM Ned Navarrete MD [facility] CPT-23760 Level 2 Est. Patient 17:33:08 WEAVER WIRE LOOM Ned Navarrete MD [facility] CPT-34988 Level 3 Est. Patient 16:25:26 WEAVER WIRE LOOM Ned Navarrete MD [facility] Procedures Code Procedure Name Date Entry Date Standard Desc ription CPT-90511 Sono OB comp > 14 weeks - XRAY USE ONLY 17:00:59 WEAVER WIRE LOOM CPT-50987 UA w micro - LAB USE ONLY 16:59:38 CDT 2015 CPT-90669 TSH - LAB USE ONLY 16:59:38 CDT CPT-76280 Venipuncture Draw Fee 16:59:38 CDT CPT-39546 Spec Collection and Handling Fee 14:01:24 C DT CPT-02147 Visit 14:01:24 CDT CPT-033 [facility] Med Screen 14:03:18 CDT CPT-033 [facility] Med Screen 11:04:57 CDT CPT-033 [facility] Med Screen 10:29:44 CDT CPT-18776 Administration 2+ single or combination vaccines inc oral 14:02:47 WEAVER W[employer] CPT-91585 Administration single or combination vac cine inc oral 14:02:47 WEAVER WIRE LOOM CPT-53089 Hepatitis A ped/adol 2 dose schedule 14:02:47 WEAVER W[employer] CPT-02622 Gardasil 14:02:47 WEAVER WIRE [employer] CPT-69623 Administration single or combination vac cine inc oral 11:40:38 WEAVER WIRE LOOM CPT-37287 Gardasil 11:40:38 WEAVER WIRE LOOM CPT-95272 Administration single or combination vac cine inc oral 09:45:00 CDT CPT-21774 Influenza Preservative Free split virus >age 3 09:45:00 CDT CPT-59215 Venipuncture Draw Fee 07:59:02 CDT
--- OUTSIDE RECORDS SUMMARY | 2019-10-10 20:21 | XMS REPORT | Clinical Summary ---
Author Author Admin, Son Chan Organization [facility] Address Unknown Phone Unavailable Allergies, Adverse Reactions, Alerts Allergy Name Reaction Description Start Date Severity Status Pr ovider PEANUT BUTTER Critical Active Breanne Morgan PN ABILIFY shaking Critical Active Saskia Dumont PhD Conditions or Problems Problem Name Problem Code Onset Date Status Entry Date Provider Comment Standard Description Annotate WEIGHT GAIN 783.1 Resolved Nde Navarrete MD Abnormal weight gain BIPOLAR DISORDER [...] Ned Navarrete MD Supervision of other normal WEIGHT GAIN ICD-783.1 Inactive Ned aNvarrete MD NASOLACRIMAL DUCT OBSTRUCTION, LEFT ICD-375.56 Inactive [...] Prescott MD Gastroenteritis Inactive George Frances MD Medication List Medication Instructions Start Date Stop Date Generic Name NDC Status Provider Patient Instruction LATUDA 20 MG ORAL TABS LURASIDONE HCL 5758609 0230 Active Breanne Madl PATENT COUNSEL Active CEPHALEXIN 500 MG ORAL CAPS CEPHALEXIN 814623 91919 Active Breanne Madl PATENT COUNSEL Active LORATADINE 10 MG TABS 1 tablet by mouth daily L ORATADINE 35808325531 No Longer Active Breanne Madl PATENT COUNSEL Active HYDROXYZINE HCL 25 MG TABS Take 1-2 tablets daily 2015 HYDROXYZINE HCL 70762347692 No Longer Active Breanne Madl PATENT COUNSEL Active ORTHO TRI-CYCLEN (28) 0.18/0.215/0.25 MG-35 MCG TABS 1 daily NORGESTIM-ETH ESTRAD TRIPHASIC 85633325191 No Longer Active Breanne Madl PATENT COUNSEL Active CLARITIN 10 MG TAB 1 tablet by mouth daily as needed for itchy r khari LORATADINE 04709544465 No Longer Active Ned Navarrete MD Active AUGMENTIN 875-125 MG TAB 1 po BID x 10 days with food AMOXICILLIN-POT CLAVULANATE 60640214598 No Longer Active Toni Washington DO Active ORTHO TRI-CYCLEN (28) 0.18/0.215/0.25 MG-35 MCG TABS 1 daily NORGESTIM-ETH ESTRAD TRIPHASIC 17732053175 No Longer Active Ned Navarrete MD Active ZOFRAN ODT 4 MG TBDP 1 po q6hr PRN Nausea ONDAN SETRON 23791894870 No Longer Active Ned Navarrete MD Active [facility] MEL[facility] 3 MG TABS Take 1 tablet at bedtime. 2013 MELATONIN 02958068987 No Longer Active Ned Navarrete MD Activ e BIOTIN 1000 MCG TABS Take 2 tablets daily BIOTI N 38099200743 No Longer Active Ned Navarrete MD Active OMEPRAZOLE 20 MG CPDR 1 tablet by mouth daily O MEPRAZOLE 95730899984 No Longer Active Mariana Moses APRN Active LATUDA 80 MG TABS 1 tablet daily LURASIDONE HCL 47409667270 No Longer Active Mariana Moses APRN Active ZOVIRAX 400 MG TABS Take 1 tablet every 8 hours as needed 2 ACYCLOVIR 76433471654 No Longer Active Ned Navarrete MD Activ e ZITHROMAX Z-CHACE 250 MG TABS 2 today, then 1 daily for 4 days 201 10/06/11 AZITHROMYCIN 62002757982 No Longer Active Ned Navarrete MD Active TOPAMAX 100 MG TABS 1 tablet daily TOPIRAMATE 54 696469345 No Longer Active Ned Navarrete MD Active AMOXICILLIN 500 MG CAPS 2 po BID x 10 days AMOX ICILLIN 72876829300 No Longer Active Saskia Simon MD PhD Active NAPROSYN 375 MG TAB 1 twice a day as needed for chest pain 04/01 NAPROXEN 56143408740 No Longer Active Saskia Simon MD PhD Active HYDROCORTISONE 2.5 % EXT CREA Apply three times a day to aff ected area HYDROCORTISONE 74659213101 No Longer Active Ned Navarrete MD Active TOPIRAMATE 50 MG TABS 1 QD TOPIRAMATE 79123587256 No Longer Active Ned Navarrete MD Active FANAPT 6 MG TABS 1 BID ILOPERIDONE 37461643362 No L onger Active Ned Navarrete MD Active CIPROFLOXACIN HCL 0.3 % SOLN 1 drop in right eye every 2 hours for 2 days, then 1 drop four times a day CIPROFLOXACIN HCL 55455315461 No Longer Active Ned Navarrete MD Active LORATADINE 10 MG TABS 1 tablet by mouth daily L ORATADINE 31282017935 No Longer Active Ned Navarrete MD Active RANITIDINE HCL 150 MG CAPS 1 twice a day RANITI DINE HCL 73102242876 No Longer Active Ned Navarrete MD Active RANITIDINE HCL 150 MG CAPS 1 twice a day RANITIDINE HCL 150 MG CAPS 725957 RANITIDINE HCL Inactive LORATADINE 10 MG TABS 1 tablet by mouth daily LORATADINE 10 MG TABS 284961 LORATADINE Inactive CIPROFLOXACIN HCL 0.3 % SOLN 1 drop in right eye every 2 hours for 2 days, then 1 drop four times a day CIPROFLOXACIN HCL 0.3 % SOLN 700178 CIPROFLOXACIN HCL Inactive FANAPT 6 MG TABS 1 BID FANAPT 6 MG TABS ILO PERIDONE Inactive TOPIRAMATE 50 MG TABS 1 QD TOPIRAMATE 50 MG TABS 1 04275 TOPIRAMATE Inactive HYDROCORTISONE 2.5 % EXT CREA Apply three times a day to aff ected area HYDROCORTISONE 2.5 % EXT CREA 797791 HYDROCORTIS ONE Inactive NAPROSYN 375 MG TAB 1 twice a day as needed for chest pain 04/01 NAPROSYN 375 MG TAB NAPROXEN Inactive TOPAMAX 100 MG TABS 1 tablet daily TOPAMAX 100 MG TABS 250724 TOPIRAMATE Inactive ZOVIRAX 400 MG TABS Take 1 tablet every 8 hours as needed ZOVIRAX 400 MG TABS 034806 ACYCLOVIR Inactive LATUDA 80 MG TABS 1 tablet daily LATUDA 80 MG TA BS LURASIDONE HCL Inactive OMEPRAZOLE 20 MG CPDR 1 tablet by mouth daily OMEPRAZOLE 20 MG CPDR 522333 OMEPRAZOLE Inactive BIOTIN 1000 MCG TABS Take 2 tablets daily BIOTIN 1000 MCG TABS 315284 BIOTIN Inactive [facility] 3 MG TABS Take 1 tablet at bedtime. 2013 [facility] M[facility] 3 MG TABS 626428 MELATONIN Inactive ZOFRAN ODT 4 MG TBDP 1 po q6hr PRN Nausea ZOFRAN ODT 4 MG TBDP 565797 ONDANSETRON Inactive ORTHO TRI-CYCLEN (28) 0.18/0.215/0.25 MG-35 MCG TABS 1 daily ORTHO TRI-CYCLEN (28) 0.18/0.215/0.25 MG-35 MCG TABS 166151 NORGESTIM-ETH ESTRAD TRIPHASIC Inactive CLARITIN 10 MG TAB 1 tablet by mouth daily as needed for itchy r khari CLARITIN 10 MG TAB 453801 LORATADINE Inactive ORTHO TRI-CYCLEN (28) 0.18/0.215/0.25 MG-35 MCG TABS 1 daily ORTHO TRI-CYCLEN (28) 0.18/0.215/0.25 MG-35 MCG TABS 896607 NORGESTIM-ETH ESTRAD TRIPHASIC Inactive HYDROXYZINE HCL 25 MG TABS Take 1-2 tablets daily 2015 HYDROXYZINE HCL 25 MG TABS 536862 HYDROXYZINE HCL Inactive LORATADINE 10 MG TABS 1 tablet by mouth daily LORATADINE 10 MG TABS 679265 LORATADINE Inactive AMOXICILLIN 500 MG CAPS 2 po BID x 10 days AMOXICILLIN 500 MG CAPS 888038 AMOXICILLIN Inactive ZITHROMAX Z-CHACE 250 MG TABS 2 today, then 1 daily for 4 days 201 10/06/11 ZITHROMAX Z-CHACE 250 MG TABS 4368734 AZITHROMYCIN Inac tive AUGMENTIN 875-125 MG TAB 1 po BID x 10 days with food AUGMENTIN 875-125 MG TAB 493206 AMOXICILLIN-POT CLAVULANATE Inactiv e Advance Directives Directive [...] 18 yo)) Fluzone preservative free (>3 yrs.) [WEC947] Influenza, seasonal, injectable, preservative free MPSV4 (meningococcal polysaccharide vaccination) Menactra meningococcal polysaccharide vaccine (MPSV4) hepatitis A immunization #1 Havrix-Pedi hepa titis A vaccine, unspecified formulation Adacel (Tetanus, reduced Diphtheria, and acellular Per tussis Immunization) Adacel [SRI247] tetanus toxoid, reduced diph theria toxoid, and [...] - 3141-9 120.4 [lb_av] Weigh t Measured blood pressure, diastolic - 8462-4 72 mm[Hg] BP michele blood pressure, systolic - 8480-6 111 mm[Hg] BP sys pulse rate E&M - 8867-4 85 /min H eart rate temperature E&M 97.1 [degF] Body temp erature weight E&M - 3141-9 127 [lb_av] Weigh t Measured Diagnostic Results Date [...] hepatitis B surface antigen NON-REACTIVE NON-RE ACTIVE Lab Report: ABO GROUP & RH TYPE, [...] 11 .0-15.0 platelet count 210 THOUSAND/UL 10*3/mm3 573-909 8672/11/02 mean platelet volume 10.3 fL 7.5-11.5 Lab [...] RBCW/REFL I, CBC (INCL ... - Serology rapid plasma reagin antibody titer NON-REACTIVE NON-REACTIVE rubella antibody, serum, IgG 1.08 Lab Report: [...] ative Encounters Code Encounter Date Provider Facility CPT- Level 2 Est. Patient 12:43:40 CDT Ned Navarrete MD [facility]-43974 Level 3 Est. Patient 14:38:48 CDT Toni duque DO [facility] CPT-38747 Level 3 Est. Patient 09:02:58 HUMANITIES PROFESSOR George paulson MD [facility]-93270 Level 3 Est. Patient 17:42:32 CDT Ned Navarrete MD [facility]-40917 Level 3 Est. Patient 11:04:31 HUMANITIES PROFESSOR Mariana Torrez APRN [facility] CPT-99108 Level 4 Est. Patient 12:27:05 HUMANITIES PROFESSOR Ned Navarrete MD [facility] CPT-87057 Level 3 Est. Patient 11:31:58 HUMANITIES PROFESSOR Ned Navarrete MD [facility] CPT-48549 Level 3 Est. Patient 16:49:32 CDT Ned Navarrete MD [facility] CPT-13031 Level 4 Est. Patient 14:11:59 HUMANITIES PROFESSOR Saskia green MD PhD [facility] CPT-19522 Level 3 Est. Patient 17:34:25 CDT Ned Navarrete MD [facility]-40260 Level 3 Est. Patient 17:34:19 CDT Ned Navarrete MD [facility]-90928 Level 3 Est. Patient 13:46:05 CDT Ned Navarrete MD [facility]-45686 Level 3 Est. Patient 16:55:47 HUMANITIES PROFESSOR Ned Navarrete MD [facility] CPT-69463 Level 2 Est. Patient 17:33:08 HUMANITIES PROFESSOR Ned Navarrete MD [facility] CPT-46711 Level 3 Est. Patient 16:25:26 HUMANITIES PROFESSOR Ned Navarrete MD [facility] Procedures Code Procedure Name Date Entry Date Standard Desc ription CPT-20884 UA w micro - LAB USE ONLY 16:59:38 CDT 2015 CPT-77907 TSH - LAB USE ONLY 16:59:38 CDT CPT-61016 Venipuncture Draw Fee 16:59:38 CDT CPT-10504 Spec Collection and Handling Fee 14:01:24 C DT CPT-67236 Visit 14:01:24 CDT CPT-033 [facility] Med Screen 14:03:18 CDT CPT-033 [facility] Med Screen 11:04:57 CDT CPT-033 [facility] Med Screen 10:29:44 CDT CPT-09719 Administration 2+ single or combination vaccines inc oral 14:02:47 HUMANITIES PROFESSOR CPT-05729 Administration single or combination vac cine inc oral 14:02:47 HUMANITIES PROFESSOR CPT-76651 Hepatitis A ped/adol 2 dose schedule 14:02:47 HUMANITIES PROFESSOR CPT-35984 Gardasil 14:02:47 HUMANITIES PROFESSOR CPT-92484 Administration single or combination vac cine inc oral 11:40:38 HUMANITIES PROFESSOR CPT-45352 Gardasil 11:40:38 HUMANITIES PROFESSOR CPT-87575 Administration single or combination vac cine inc oral 09:45:00 CDT CPT-36171 Influenza Preservative Free split virus >age 3 09:45:00 CDT CPT-64525 Venipuncture Draw Fee 07:59:02 CDT
--- OUTSIDE RECORDS SUMMARY | 2019-10-10 20:21 | XMS REPORT | Clinical Summary ---
Author Author Beka, Son Rodriguez [facility] Address Unknown Phone Unavailable Allergies, Adverse Reactions, Alerts Allergy Name Reaction Description Start Date Severity Status Pr ovider LIULIFY shaking Critical Active Saskia Dumont PhD Conditions [...] no loss of consciousness VISUAL CHANGES 368.10 Active Saskia Simon MD PhD Subjective visual disturbance, unspecified SINUSITIS, ACUTE 461.9 Resolved Ned Navarrete MD Acute sinusitis, unspecified WELL CHILD V20.2 Active Ned Navarrete MD Routine or child health check HERPES GENITALIS 054.10 Active Ned Dumont Genital herpes, unspecified Pharyngitis, acute 462 Resolved Ned manley MD Acute pharyngitis Epigastric pain 789.06 Active Ned Navarrete MD Abdominal pain, epigastric Dizziness 780.4 Active Ned Nvaarrete MD Dizziness and giddiness Gastroenteritis 558.9 Active Mariana Moses APR N Other and unspecified noninfectious gastroenteritis and colitis Amenorrhea 626.0 Active Ned Navarrete MD Absence of menstruation WEIGHT GAIN ICD-783.1 Inactive Ned Navarrete MD NASOLACRIMAL DUCT OBSTRUCTION, LEFT ICD-375.56 Inactive Ned Navarrete MD ANKLE SPRAIN ICD-845.00 Inactive Ned manley MD NASOLACRIMAL DUCT OBSTRUCTION, RIGHT ICD-375.56 Inactive Ned Navarrete MD DERMATITIS, ALLERGIC ICD-692.9 Inactive Saskia Simon MD PhD COSTOCHONDRITIS ICD-733.6 Inactive Saskia Simon MD PhD CONCUSSION WITH NO LOSS OF CONSCIOUSNESS ICD-850.0 Inactive Ned Navarrete MD SINUSITIS, ACUTE ICD-461.9 Inactive Ned pérez MD Pharyngitis, acute ICD-462 Inactive Ned Navarrete MD Medication List Medication Instructions Start Date Stop Date Generic Name NDC Status Provider Patient Instruction ORTHO TRI-CYCLEN (28) 0.18/0.215/0.25 MG-35 MCG TABS 1 daily 2 NORGESTIM-ETH ESTRAD TRIPHASIC 94695701688 Active Tiffany Brennan Active ORTHO TRI-CYCLEN (28) 0.18/0.215/0.25 MG-35 MCG TABS 1 daily NORGESTIM-ETH ESTRAD TRIPHASIC 33042396032 No Longer Active Ned Navarrete MD Active ZOFRAN ODT 4 MG TBDP 1 po q6hr PRN Nausea ONDAN SETRON 15279557202 No Longer Active Ned Navarrete MD Active [facility]EL[facility] 3 MG TABS Take 1 tablet at bedtime. 2013 MELATONIN 74430218524 No Longer Active Ned Navarrete MD Activ e BIOTIN 1000 MCG TABS Take 2 tablets daily BIOTI N 85892885183 No Longer Active Ned Navarrete MD Active OMEPRAZOLE 20 MG CPDR 1 tablet by mouth daily O MEPRAZOLE 83509625108 No Longer Active Mariana Moses APRN Active LATUDA 80 MG TABS 1 tablet daily LURASIDONE HCL 42066803973 No Longer Active Mariana Moses APRN Active ZOVIRAX 400 MG TABS Take 1 tablet every 8 hours as needed 2 ACYCLOVIR 56254996572 No Longer Active Ned Navarrete MD Activ e ZITHROMAX Z-CHACE 250 MG TABS 2 today, then 1 daily for 4 days 201 10/06/11 AZITHROMYCIN 67960628660 No Longer Active Ned Navarrete MD Active HYDROXYZINE HCL 25 MG TABS Take 1-2 tablets daily HYDROXYZINE HCL 56288309527 Active Ned Navarrete MD Active TOPAMAX 100 MG TABS 1 tablet daily TOPIRAMATE 54 707100732 No Longer Active Ned Navarrete MD Active AMOXICILLIN 500 MG CAPS 2 po BID x 10 days AMOX ICILLIN 56958120010 No Longer Active Saskia Simon MD PhD Active NAPROSYN 375 MG TAB 1 twice a day as needed for chest pain 04/01 NAPROXEN 96625997481 No Longer Active Saskia Simon MD PhD Active HYDROCORTISONE 2.5 % EXT CREA Apply three times a day to aff ected area HYDROCORTISONE 20779692275 No Longer Active Ned Navarrete MD Active LORATADINE 10 MG TABS 1 tablet by mouth daily L ORATADINE 64518200164 Active Ned Navarrete MD Active TOPIRAMATE 50 MG TABS 1 QD TOPIRAMATE 35940035902 No Longer Active Ned Navarrete MD Active FANAPT 6 MG TABS 1 BID ILOPERIDONE 49959190561 No L onger Active Ned Navarrete MD Active CIPROFLOXACIN HCL 0.3 % SOLN 1 drop in right eye every 2 hours for 2 days, then 1 drop four times a day CIPROFLOXACIN HCL 68734610766 No Longer Active Ned Navarrete MD Active LORATADINE 10 MG TABS 1 tablet by mouth daily L ORATADINE 82445703424 No Longer Active Ned Navarrete MD Active RANITIDINE HCL 150 MG CAPS 1 twice a day RANITI DINE HCL 22463041075 No Longer Active Ned Navarrete MD Active RANITIDINE HCL 150 MG CAPS 1 twice a day RANITIDINE HCL 150 MG CAPS 232674 RANITIDINE HCL Inactive LORATADINE 10 MG TABS 1 tablet by mouth daily LORATADINE 10 MG TABS 709130 LORATADINE Inactive CIPROFLOXACIN HCL 0.3 % SOLN 1 drop in right eye every 2 hours for 2 days, then 1 drop four times a day CIPROFLOXACIN HCL 0.3 % SOLN 628597 CIPROFLOXACIN HCL Inactive FANAPT 6 MG TABS 1 BID FANAPT 6 MG TABS ILO PERIDONE Inactive TOPIRAMATE 50 MG TABS 1 QD TOPIRAMATE 50 MG TABS 1 40928 TOPIRAMATE Inactive HYDROCORTISONE 2.5 % EXT CREA Apply three times a day to aff ected area HYDROCORTISONE 2.5 % EXT CREA 999485 HYDROCORTIS ONE Inactive NAPROSYN 375 MG TAB 1 twice a day as needed for chest pain 04/01 NAPROSYN 375 MG TAB 19790729 NAPROXEN Inactive TOPAMAX 100 MG TABS 1 tablet daily TOPAMAX 100 MG TABS 331106 TOPIRAMATE Inactive ZOVIRAX 400 MG TABS Take 1 tablet every 8 hours as needed 2 ZOVIRAX 400 MG TABS 839974 ACYCLOVIR Inactive LATUDA 80 MG TABS 1 tablet daily LATUDA 80 MG TA BS LURASIDONE HCL Inactive OMEPRAZOLE 20 MG CPDR 1 tablet by mouth daily OMEPRAZOLE 20 MG CPDR 847888 OMEPRAZOLE Inactive BIOTIN 1000 MCG TABS Take 2 tablets daily BIOTIN 1000 MCG TABS 554004 BIOTIN Inactive [facility] M[facility] 3 MG TABS Take 1 tablet at bedtime. 2013 [facility] MEL[facility] 3 MG TABS 009736 MELATONIN Inactive ZOFRAN ODT 4 MG TBDP 1 po q6hr PRN Nausea ZOFRAN ODT 4 MG TBDP 332232 ONDANSETRON Inactive ORTHO TRI-CYCLEN (28) 0.18/0.215/0.25 MG-35 MCG TABS 1 daily ORTHO TRI-CYCLEN (28) 0.18/0.215/0.25 MG-35 MCG TABS 492759 NORGESTIM-ETH ESTRAD TRIPHASIC Inactive AMOXICILLIN 500 MG CAPS 2 po BID x 10 days AMOXICILLIN 500 MG CAPS 241306 AMOXICILLIN Inactive ZITHROMAX Z-CHACE 250 MG TABS 2 today, then 1 daily for 4 days 201 10/06/11 ZITHROMAX Z-CHACE 250 MG TABS 7352455 AZITHROMYCIN Inac tive Advance Directives Directive Description Start Date CONSENT [...] 18 yo)) Fluzone preservative free (>3 yrs.) [[id number]] Influenza, seasonal, injectable, preservative free MPSV4 (meningococcal polysaccharide vaccination) Menactra meningococcal polysaccharide vaccine (MPSV4) hepatitis A immunization #1 Havrix-Pedi hepa titis A vaccine, unspecified formulation Adacel (Tetanus, reduced Diphtheria, and acellular Per tussis Immunization) Adacel [[id number]] tetanus toxoid, reduced diph theria toxoid, and [...] Range Description blood pressure, diastolic - 8462-4 70 mm[Hg] BP michele blood pressure, systolic - 8480-6 111 mm[Hg] BP sys height E&M - 8302-2 67 [in_us] Bdy h eight pulse rate E&M - 8867-4 56 /min H eart rate temperature E&M 98.2 [degF] Body temp erature weight E&M - 3141-9 142.6 [lb_av] Weigh t Measured Diagnostic Results Date Name Value Unit Range Description Lab Report: [facility] [place] - Chemistry human chorionic gonadotropin , urine, qualitative (urine test) Negative Negative Encounters Code Encounter Date Provider Facility CPT-71289 Level 3 Est. Patient 17:42:32 CDT Ned Navarrete MD [facility] CPT-59079 Level 3 Est. Patient 11:04:31 FIELD CROP HARVEST CONTRACTOR Mariana Torrez APRN [facility] CPT-88771 Level 4 Est. Patient 12:27:05 FIELD CROP HARVEST CONTRACTOR Ned Navarrete MD [facility] CPT-28167 Level 3 Est. Patient 11:31:58 FIELD CROP HARVEST CONTRACTOR Ned Navarrete MD [facility] CPT-05785 Level 3 Est. Patient 16:49:32 CDT Ned Navarrete MD [facility] CPT-39627 Level 4 Est. Patient 14:11:59 FIELD CROP HARVEST CONTRACTOR Saskia green MD PhD [facility] CPT-86914 Level 3 Est. Patient 17:34:25 CDT Ned Navarrete MD [facility] CPT-06686 Level 3 Est. Patient 17:34:19 CDT Ned Navarrete MD [facility] CPT-27221 Level 3 Est. Patient 13:46:05 CDT Ned Navarrete MD [facility] CPT-54377 Level 3 Est. Patient 16:55:47 FIELD CROP HARVEST CONTRACTOR Ned Navarrete MD [facility] CPT-53099 Level 2 Est. Patient 17:33:08 FIELD CROP HARVEST CONTRACTOR Ned Navarrete MD [facility] CPT-79145 Level 3 Est. Patient 16:25:26 FIELD CROP HARVEST CONTRACTOR Ned Navarrete MD [facility] Procedures Code Procedure Name Date Entry Date Standard Desc ription CPT-033 [facility] Med Screen 10:29:44 CDT CPT-48209 Administration 2+ single or combination vaccines inc oral 14:02:47 FIELD CROP HARVEST CONTRACTOR CPT-52798 Administration single or combination vac cine inc oral 14:02:47 FIELD CROP HARVEST CONTRACTOR CPT-59369 Hepatitis A ped/adol 2 dose schedule 14:02:47 FIELD CROP HARVEST CONTRACTOR CPT-12659 Gardasil 14:02:47 FIELD CROP HARVEST CONTRACTOR CPT-52448 Administration single or combination vac cine inc oral 11:40:38 FIELD CROP HARVEST CONTRACTOR CPT-59328 Gardasil 11:40:38 FIELD CROP HARVEST CONTRACTOR CPT-73386 Administration single or combination vac cine inc oral 09:45:00 CDT CPT-46668 Influenza Preservative Free split virus >age 3 09:45:00 CDT CPT-48752 Venipuncture Draw Fee 07:59:02 CDT
--- OUTSIDE RECORDS SUMMARY | 2019-10-10 20:21 | XMS REPORT | Clinical Summary ---
Author Author Admin, Son Chan Organization [email or web address] Address Unknown Phone Unavailable Allergies, Adverse Reactions, [...] health check HERPES GENITALIS 054.10 Active Ned Dumotn Genital herpes, unspecified Pharyngitis, acute 462 Resolved [...] use complicating , second trimester 648.33 2016 Inactive Missy PINEDA Drug dependence comp licating , childbirth, or the puerperium, antepartum condition or complication Methamphetamine abuse 305.70 Inactive Oneil PINEDA Amphetamine or related acting sympathomimetic abuse, u nspecified use 20 weeks gestation of V28.9 Inactive 2016 Missy DAWSONT Encounter for unspecified scre ening of mother 22 weeks gestation of V28.9 Inactive 2016 Missy Hayes LRT Encounter for unspecified scre ening of mother Methamphetamine abuse 305.70 Active Ned Prescott MD Amphetamine or related acting sympathomimetic abuse, unspecified use Upper respiratory infection 465.9 Active Ned Navarrete MD Acute upper respiratory infections of un specified site WEIGHT GAIN ICD-783.1 Inactive Ned Navarrete MD [...] Prescott MD Gastroenteritis Inactive George Frances MD Drug use complicating , second trimester ICD-648.33 Inactive Missy Hayes LRT Methamphetamine abuse ICD-305.70 Inactive Andreea Hayes LRT 20 weeks gestation of ICD-V28.9 Inac tialexandra Hayes LRT 22 weeks gestation of ICD-V28.9 Inac tialexandra Hayes LRT Medication List Medication Instructions Start Date Stop Date Generic Name NDC Status Provider Patient Instruction PREDNISONE 20 MG TABS Take 2 daily for 3 days and then 1 herman ly for 3 days PREDNISONE 95117137383 Active Ned Navarrete MD Active CEPHALEXIN 500 MG ORAL CAPS CEPHALEXIN 21909234051 No Longer Active Ned Navarrete MD Active LATUDA 20 MG ORAL TABS LURASIDONE HCL 5696625 0230 Active Breanne Madl PACKAGING INSPECTOR Active LORATADINE 10 MG TABS 1 tablet by mouth daily L ORATADINE 68077345529 No Longer Active Breanne Madl PACKAGING INSPECTOR Active HYDROXYZINE HCL 25 MG TABS Take 1-2 tablets daily 2015 HYDROXYZINE HCL 02391341497 No Longer Active Breanne Madl PACKAGING INSPECTOR Active ORTHO TRI-CYCLEN (28) 0.18/0.215/0.25 MG-35 MCG TABS 1 daily NORGESTIM-ETH ESTRAD TRIPHASIC 15428473227 No Longer Active Breanne Madl PACKAGING INSPECTOR Active CLARITIN 10 MG TAB 1 tablet by mouth daily as needed for itchy r khari LORATADINE 31567535167 No Longer Active Ned Navarrete MD Active AUGMENTIN 875-125 MG TAB 1 po BID x 10 days with food AMOXICILLIN-POT CLAVULANATE 13000312091 No Longer Active Toni Washington DO Active ORTHO TRI-CYCLEN (28) 0.18/0.215/0.25 MG-35 MCG TABS 1 daily NORGESTIM-ETH ESTRAD TRIPHASIC 76197134971 No Longer Active Ned Navarrete MD Active ZOFRAN ODT 4 MG TBDP 1 po q6hr PRN Nausea ONDAN SETRON 78102969516 No Longer Active Ned Navarrete MD Active [facility] MEL[facility] 3 MG TABS Take 1 tablet at bedtime. 2013 MELATONIN 23957757025 No Longer Active Ned Navarrete MD Activ e BIOTIN 1000 MCG TABS Take 2 tablets daily BIOTI N 35004490653 No Longer Active Ned Navarrete MD Active OMEPRAZOLE 20 MG CPDR 1 tablet by mouth daily O MEPRAZOLE 79261598471 No Longer Active Mariana Moses APRN Active LATUDA 80 MG TABS 1 tablet daily LURASIDONE HCL 88170144471 No Longer Active Mariana Moses APRN Active ZOVIRAX 400 MG TABS Take 1 tablet every 8 hours as needed 2 ACYCLOVIR 34974159712 No Longer Active Ned Navarrete MD Activ e ZITHROMAX Z-CHACE 250 MG TABS 2 today, then 1 daily for 4 days 201 10/06/11 AZITHROMYCIN 29169455803 No Longer Active Ned Navarrete MD Active TOPAMAX 100 MG TABS 1 tablet daily TOPIRAMATE 54 272772247 No Longer Active Ned Navarrete MD Active AMOXICILLIN 500 MG CAPS 2 po BID x 10 days AMOX ICILLIN 77338720970 No Longer Active Saskia Simon MD PhD Active NAPROSYN 375 MG TAB 1 twice a day as needed for chest pain 04/01 NAPROXEN 45258607287 No Longer Active Saskia Simon MD PhD Active HYDROCORTISONE 2.5 % EXT CREA Apply three times a day to aff ected area HYDROCORTISONE 16715638709 No Longer Active Ned Navarrete MD Active TOPIRAMATE 50 MG TABS 1 QD TOPIRAMATE 08814967810 No Longer Active Ned Navarrete MD Active FANAPT 6 MG TABS 1 BID ILOPERIDONE 46993535758 No L onger Active Ned Navarrete MD Active CIPROFLOXACIN HCL 0.3 % SOLN 1 drop in right eye every 2 hours for 2 days, then 1 drop four times a day CIPROFLOXACIN HCL 39603368311 No Longer Active Ned Navarrete MD Active LORATADINE 10 MG TABS 1 tablet by mouth daily L ORATADINE 72555299192 No Longer Active Ned Navarrete MD Active RANITIDINE HCL 150 MG CAPS 1 twice a day RANITI DINE HCL 82342090534 No Longer Active Ned Navarrete MD Active RANITIDINE HCL 150 MG CAPS 1 twice a day RANITIDINE HCL 150 MG CAPS 173621 RANITIDINE HCL Inactive LORATADINE 10 MG TABS 1 tablet by mouth daily LORATADINE 10 MG TABS 532175 LORATADINE Inactive CIPROFLOXACIN HCL 0.3 % SOLN 1 drop in right eye every 2 hours for 2 days, then 1 drop four times a day CIPROFLOXACIN HCL 0.3 % SOLN 926057 CIPROFLOXACIN HCL Inactive FANAPT 6 MG TABS 1 BID FANAPT 6 MG TABS ILO PERIDONE Inactive TOPIRAMATE 50 MG TABS 1 QD TOPIRAMATE 50 MG TABS 1 60066 TOPIRAMATE Inactive HYDROCORTISONE 2.5 % EXT CREA Apply three times a day to aff ected area HYDROCORTISONE 2.5 % EXT CREA 002332 HYDROCORTIS ONE Inactive NAPROSYN 375 MG TAB 1 twice a day as needed for chest pain 04/01 NAPROSYN 375 MG TAB NAPROXEN Inactive TOPAMAX 100 MG TABS 1 tablet daily TOPAMAX 100 MG TABS 686383 TOPIRAMATE Inactive ZOVIRAX 400 MG TABS Take 1 tablet every 8 hours as needed 2 ZOVIRAX 400 MG TABS 734126 ACYCLOVIR Inactive LATUDA 80 MG TABS 1 tablet daily LATUDA 80 MG TA BS LURASIDONE HCL Inactive OMEPRAZOLE 20 MG CPDR 1 tablet by mouth daily OMEPRAZOLE 20 MG CPDR 643721 OMEPRAZOLE Inactive BIOTIN 1000 MCG TABS Take 2 tablets daily BIOTIN 1000 MCG TABS 193380 BIOTIN Inactive [facility] M[facility] 3 MG TABS Take 1 tablet at bedtime. 2013 [facility] M[facility] 3 MG TABS 201365 MELATONIN Inactive ZOFRAN ODT 4 MG TBDP 1 po q6hr PRN Nausea ZOFRAN ODT 4 MG TBDP 796364 ONDANSETRON Inactive ORTHO TRI-CYCLEN (28) 0.18/0.215/0.25 MG-35 MCG TABS 1 daily ORTHO TRI-CYCLEN (28) 0.18/0.215/0.25 MG-35 MCG TABS 778833 NORGESTIM-ETH ESTRAD TRIPHASIC Inactive CLARITIN 10 MG TAB 1 tablet by mouth daily as needed for itchy r khari CLARITIN 10 MG TAB 747091 LORATADINE Inactive ORTHO TRI-CYCLEN (28) 0.18/0.215/0.25 MG-35 MCG TABS 1 daily ORTHO TRI-CYCLEN (28) 0.18/0.215/0.25 MG-35 MCG TABS 229349 NORGESTIM-ETH ESTRAD TRIPHASIC Inactive HYDROXYZINE HCL 25 MG TABS Take 1-2 tablets daily 2015 HYDROXYZINE HCL 25 MG TABS 632046 HYDROXYZINE HCL Inactive LORATADINE 10 MG TABS 1 tablet by mouth daily LORATADINE 10 MG TABS 119306 LORATADINE Inactive CEPHALEXIN 500 MG ORAL CAPS CEPHALEX IN 500 MG ORAL CAPS 630986 CEPHALEXIN Inactive AMOXICILLIN 500 MG CAPS 2 po BID x 10 days AMOXICILLIN 500 MG CAPS 647956 AMOXICILLIN Inactive ZITHROMAX Z-CHACE 250 MG TABS 2 today, then 1 daily for 4 days 201 10/06/11 ZITHROMAX Z-CHACE 250 MG TABS 3360447 AZITHROMYCIN Inac tive AUGMENTIN 875-125 MG TAB 1 po BID x 10 days with food AUGMENTIN 875-125 MG TAB 307647 AMOXICILLIN-POT CLAVULANATE Inactiv e Advance Directives Directive [...] 18 yo)) Fluzone preservative free (>3 yrs.) [[id number]] Influenza, seasonal, injectable, preservative free MPSV4 (meningococcal polysaccharide vaccination) Menactra meningococcal polysaccharide vaccine (MPSV4) hepatitis A immunization #1 Havrix-Pedi hepa titis A vaccine, unspecified formulation Adacel (Tetanus, reduced Diphtheria, and acellular Per tussis Immunization) Adacel [[id number]] tetanus toxoid, reduced diph theria toxoid, and [...] Range Description blood pressure, diastolic - 8462-4 65 mm[Hg] BP michele blood pressure, systolic - 8480-6 96 mm[Hg] BP sys pulse rate E&M - 8867-4 89 /min H eart rate temperature E&M 98.8 [degF] Body temp erature weight E&M - 3141-9 143.5 [lb_av] Weigh t Measured blood pressure, diastolic [...] 11 .0-15.0 platelet count 210 THOUSAND/UL 10*3/mm3 164-769 7407/11/02 mean platelet volume 10.3 fL 7.5-11.5 Lab [...] ative Encounters Code Encounter Date Provider Facility CPT-17487 Level 3 Est. Patient 15:35:51 CARPET RENOVATOR Ned Navarrete MD [facility] CPT-89989 Level 2 Est. Patient 12:43:40 CDT Ned Navarrete MD [facility]-21009 Level 3 Est. Patient 14:38:48 CDT Toni duque DO [facility]-46545 Level 3 Est. Patient 09:02:58 CARPET RENOVATOR George paulson MD [facility] CPT-14898 Level 3 Est. Patient 17:42:32 CDT Ned Navarrete MD [facility]-54420 Level 3 Est. Patient 11:04:31 CARPET RENOVATOR Mariana Torrez APRN [facility] CPT-20331 Level 4 Est. Patient 12:27:05 CARPET RENOVATOR Ned Navarrete MD [facility]-23552 Level 3 Est. Patient 11:31:58 CARPET RENOVATOR Ned Navarrete MD [facility] CPT-08384 Level 3 Est. Patient 16:49:32 CDT Ned Navarrete MD [facility]-88210 Level 4 Est. Patient 14:11:59 CARPET RENOVATOR Saskia green MD PhD [facility] CPT-74193 Level 3 Est. Patient 17:34:25 CDT Ned Navarrete MD [facility]-61599 Level 3 Est. Patient 17:34:19 CDT Ned Navarrete MD [facility] CPT-43226 Level 3 Est. Patient 13:46:05 CDT Ned Navarrete MD [facility] CPT-59658 Level 3 Est. Patient 16:55:47 CARPET RENOVATOR Ned Navarrete MD [facility] CPT-19182 Level 2 Est. Patient 17:33:08 CARPET RENOVATOR Ned Navarrete MD [facility] CPT-95453 Level 3 Est. Patient 16:25:26 CARPET RENOVATOR Ned Navarrete MD [facility] Procedures Code Procedure Name Date Entry Date Standard Desc ription CPT-65894 Visit 16:49:41 CARPET RENOVATOR CPT-57586 Sono OB limited - XRAY USE ONLY 16:38:01 CS T CPT-91897 Sono OB comp > 14 weeks - XRAY USE ONLY 17:00:59 CARPET RENOVATOR CPT-00275 UA w micro - LAB USE ONLY 16:59:38 CDT 2015 CPT-58364 TSH - LAB USE ONLY 16:59:38 CDT CPT-19575 Venipuncture Draw Fee 16:59:38 CDT CPT-33439 Spec Collection and Handling Fee 14:01:24 C DT CPT-71355 Visit 14:01:24 CDT CPT-033 KB Med Screen 14:03:18 CDT CPT-033 KB Med Screen 11:04:57 CDT CPT-033 KB Med Screen 10:29:44 CDT CPT-73297 Administration 2+ single or combination vaccines inc oral 14:02:47 CARPET RENOVATOR CPT-69400 Administration single or combination vac cine inc oral 14:02:47 CARPET RENOVATOR CPT-91142 Hepatitis A ped/adol 2 dose schedule 14:02:47 CARPET RENOVATOR CPT-95805 Gardasil 14:02:47 CARPET RENOVATOR CPT-61697 Administration single or combination vac cine inc oral 11:40:38 CARPET RENOVATOR CPT-63710 Gardasil 11:40:38 CARPET RENOVATOR CPT-22326 Administration single or combination vac cine inc oral 09:45:00 CDT CPT-61432 Influenza Preservative Free split virus >age 3 09:45:00 CDT CPT-74680 Venipuncture Draw Fee 07:59:02 CDT
--- OUTSIDE RECORDS SUMMARY | 2019-10-10 20:21 | XMS REPORT | Clinical Summary ---
Author Author Beka, Son Rodriguez [facility] Address Unknown Phone Unavailable Allergies, Adverse Reactions, [...] Other and unspecified noninfectious gastroenteritis and colitis WEIGHT GAIN ICD-783.1 Inactive Ned Navarrete MD [...] ICD-558.9 Inactive Ned Prescott MD Gastroenteritis Inactive Geroge Frances MD Medication List Medication Instructions Start Date Stop Date Generic Name NDC Status Provider Patient Instruction ORTHO TRI-CYCLEN (28) 0.18/0.215/0.25 MG-35 MCG TABS 1 daily 2 NORGESTIM-ETH ESTRAD TRIPHASIC 27078308418 Active Ned Navarrete MD Active ORTHO TRI-CYCLEN (28) 0.18/0.215/0.25 MG-35 MCG TABS 1 daily NORGESTIM-ETH ESTRAD TRIPHASIC 89438318555 No Longer Active Ned Navarrete MD Active ZOFRAN ODT 4 MG TBDP 1 po q6hr PRN Nausea ONDAN SETRON 73462711205 No Longer Active Ned Navarrete MD Active [facility] MEL[facility] 3 MG TABS Take 1 tablet at bedtime. 2013 MELATONIN 58933961007 No Longer Active Ned Navarrete MD Activ e BIOTIN 1000 MCG TABS Take 2 tablets daily BIOTI N 61627683666 No Longer Active Ned Navarrete MD Active OMEPRAZOLE 20 MG CPDR 1 tablet by mouth daily O MEPRAZOLE 44775893128 No Longer Active Mariana Moses APRN Active LATUDA 80 MG TABS 1 tablet daily LURASIDONE HCL 42327369398 No Longer Active Mariana Moses APRN Active ZOVIRAX 400 MG TABS Take 1 tablet every 8 hours as needed 2 ACYCLOVIR 71018430873 No Longer Active Ned Navarrete MD Activ e ZITHROMAX Z-CHACE 250 MG TABS 2 today, then 1 daily for 4 days 201 10/06/11 AZITHROMYCIN 02340113122 No Longer Active Ned Navarrete MD Active HYDROXYZINE HCL 25 MG TABS Take 1-2 tablets daily HYDROXYZINE HCL 95216223472 Active Ned Navarrete MD Active TOPAMAX 100 MG TABS 1 tablet daily TOPIRAMATE 54 804406364 No Longer Active Ned Navarrete MD Active AMOXICILLIN 500 MG CAPS 2 po BID x 10 days AMOX ICILLIN 08368669586 No Longer Active Saskia Simon MD PhD Active NAPROSYN 375 MG TAB 1 twice a day as needed for chest pain 04/01 NAPROXEN 38931576859 No Longer Active Saskia Simon MD PhD Active HYDROCORTISONE 2.5 % EXT CREA Apply three times a day to aff ected area HYDROCORTISONE 29807761892 No Longer Active Ned Navarrete MD Active LORATADINE 10 MG TABS 1 tablet by mouth daily L ORATADINE 37164552561 Active Ned Navarrete MD Active TOPIRAMATE 50 MG TABS 1 QD TOPIRAMATE 75212234884 No Longer Active Ned Navarrete MD Active FANAPT 6 MG TABS 1 BID ILOPERIDONE 91849213973 No L onger Active Ned Navarrete MD Active CIPROFLOXACIN HCL 0.3 % SOLN 1 drop in right eye every 2 hours for 2 days, then 1 drop four times a day CIPROFLOXACIN HCL 93993206712 No Longer Active Ned Navarrete MD Active LORATADINE 10 MG TABS 1 tablet by mouth daily L ORATADINE 97994759629 No Longer Active Ned Navarrete MD Active RANITIDINE HCL 150 MG CAPS 1 twice a day RANITI DINE HCL 70462833134 No Longer Active Ned Navarrete MD Active RANITIDINE HCL 150 MG CAPS 1 twice a day RANITIDINE HCL 150 MG CAPS 018521 RANITIDINE HCL Inactive LORATADINE 10 MG TABS 1 tablet by mouth daily LORATADINE 10 MG TABS 733507 LORATADINE Inactive CIPROFLOXACIN HCL 0.3 % SOLN 1 drop in right eye every 2 hours for 2 days, then 1 drop four times a day CIPROFLOXACIN HCL 0.3 % SOLN 542075 CIPROFLOXACIN HCL Inactive FANAPT 6 MG TABS 1 BID FANAPT 6 MG TABS ILO PERIDONE Inactive TOPIRAMATE 50 MG TABS 1 QD TOPIRAMATE 50 MG TABS 1 45825 TOPIRAMATE Inactive HYDROCORTISONE 2.5 % EXT CREA Apply three times a day to aff ected area HYDROCORTISONE 2.5 % EXT CREA 834929 HYDROCORTIS ONE Inactive NAPROSYN 375 MG TAB 1 twice a day as needed for chest pain 04/01 NAPROSYN 375 MG TAB NAPROXEN Inactive TOPAMAX 100 MG TABS 1 tablet daily TOPAMAX 100 MG TABS 999971 TOPIRAMATE Inactive ZOVIRAX 400 MG TABS Take 1 tablet every 8 hours as needed 2 ZOVIRAX 400 MG TABS 531496 ACYCLOVIR Inactive LATUDA 80 MG TABS 1 tablet daily LATUDA 80 MG TA BS LURASIDONE HCL Inactive OMEPRAZOLE 20 MG CPDR 1 tablet by mouth daily OMEPRAZOLE 20 MG CPDR 458594 OMEPRAZOLE Inactive BIOTIN 1000 MCG TABS Take 2 tablets daily BIOTIN 1000 MCG TABS 860950 BIOTIN Inactive [facility] MEL[facility] 3 MG TABS Take 1 tablet at bedtime. 2013 [facility] MEL[facility] 3 MG TABS 876074 MELATONIN Inactive ZOFRAN ODT 4 MG TBDP 1 po q6hr PRN Nausea ZOFRAN ODT 4 MG TBDP 765132 ONDANSETRON Inactive ORTHO TRI-CYCLEN (28) 0.18/0.215/0.25 MG-35 MCG TABS 1 daily ORTHO TRI-CYCLEN (28) 0.18/0.215/0.25 MG-35 MCG TABS 444370 NORGESTIM-ETH ESTRAD TRIPHASIC Inactive AMOXICILLIN 500 MG CAPS 2 po BID x 10 days AMOXICILLIN 500 MG CAPS 289075 AMOXICILLIN Inactive ZITHROMAX Z-CHACE 250 MG TABS 2 today, then 1 daily for 4 days 201 10/06/11 ZITHROMAX Z-CHACE 250 MG TABS 5356472 AZITHROMYCIN Inac tive Advance Directives Directive Description [...] 18 yo)) Fluzone preservative free (>3 yrs.) [[id number]] Influenza, seasonal, injectable, preservative free MPSV4 (meningococcal polysaccharide vaccination) Menactra meningococcal polysaccharide vaccine (MPSV4) hepatitis A immunization #1 Havrix-Pedi hepa titis A vaccine, unspecified formulation Adacel (Tetanus, reduced Diphtheria, and acellular Per tussis Immunization) Adacel [[id number]] tetanus toxoid, reduced diph theria toxoid, and [...] Range Description blood pressure, diastolic - 8462-4 72 mm[Hg] BP michele blood pressure, systolic - 8480-6 111 mm[Hg] BP sys pulse rate E&M - 8867-4 85 /min H eart rate temperature E&M 97.1 [degF] Body temp erature weight E&M - 3141-9 127 [lb_av] Weigh t Measured blood pressure, diastolic - 8462-4 59 mm[Hg] BP michele blood pressure, systolic - 8480-6 94 mm[Hg] BP sys height E&M - 8302-2 68.25 [in_us] Bdy h eight pulse rate E&M - 8867-4 59 /min H eart rate temperature E&M 98 [degF] Body temp erature weight E&M - 3141-9 136 [lb_av] Weigh t Measured Encounters Code Encounter Date Provider Facility CPT-11881 Level 3 Est. Patient 09:02:58 TEACHING SUPERVISOR George paulson MD [facility] CPT-77371 Level 3 Est. Patient 17:42:32 CDT Ned Navarrete MD [facility] CPT-22184 Level 3 Est. Patient 11:04:31 TEACHING SUPERVISOR Mariana Torrez APRN [facility] CPT-42423 Level 4 Est. Patient 12:27:05 TEACHING SUPERVISOR Ned Navarrete MD [facility] CPT-28871 Level 3 Est. Patient 11:31:58 TEACHING SUPERVISOR Ned Navarrete MD [facility] CPT-48584 Level 3 Est. Patient 16:49:32 CDT Ned Navarrete MD [facility] CPT-44381 Level 4 Est. Patient 14:11:59 TEACHING SUPERVISOR Saskia green MD PhD [facility] CPT-81774 Level 3 Est. Patient 17:34:25 CDT eNd Navarrete MD [facility] CPT-15824 Level 3 Est. Patient 17:34:19 CDT Ned Navarrete MD [facility] CPT-50726 Level 3 Est. Patient 13:46:05 CDT Ned Navarrete MD [facility] [place]-[address] Level 3 Est. Patient 16:55:47 TEACHING SUPERVISOR Ned Navarrete MD [facility] CPT-40284 Level 2 Est. Patient 17:33:08 TEACHING SUPERVISOR Ned Navarrete MD [facility] CPT-38111 Level 3 Est. Patient 16:25:26 TEACHING SUPERVISOR Ned Navarrete MD [facility] Procedures Code Procedure Name Date Entry Date Standard Desc ription CPT-033 [facility] Med Screen 11:04:57 CDT CPT-033 [facility] Med Screen 10:29:44 CDT CPT-75116 Administration 2+ single or combination vaccines inc oral 14:02:47 TEACHING SUPERVISOR CPT-62727 Administration single or combination vac cine inc oral 14:02:47 TEACHING SUPERVISOR CPT-48159 Hepatitis A ped/adol 2 dose schedule 14:02:47 TEACHING SUPERVISOR CPT-92467 Gardasil 14:02:47 TEACHING SUPERVISOR CPT-65682 Administration single or combination vac cine inc oral 11:40:38 TEACHING SUPERVISOR CPT-32345 Gardasil 11:40:38 TEACHING SUPERVISOR CPT-61274 Administration single or combination vac cine inc oral 09:45:00 CDT CPT-03778 Influenza Preservative Free split virus >age 3 09:45:00 CDT CPT-57053 Venipuncture Draw Fee 07:59:02 CDT
--- OUTSIDE RECORDS SUMMARY | 2019-10-10 20:22 | XMS REPORT | Clinical Summary ---
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 [facility] Amphetamine or related acting sympathomimetic abuse, u [...] [address] for 3 days PREDNISONE 53938313370 No Longer Active Ned pérez MD Active CEPHALEXIN 500 MG ORAL CAPS CEPHALEXIN 57309148335 No Longer Active Ned Navarrete MD Active LATUDA 20 MG ORAL TABS LURASIDONE HCL 3386405 0230 Active Breanne Madl BUSINESS SERVICES ADMINISTRATOR Active LORATADINE 10 MG TABS 1 tablet by mouth daily L ORATADINE 12924557813 No Longer Active Breanne Madl BUSINESS SERVICES ADMINISTRATOR Active HYDROXYZINE HCL 25 MG TABS Take 1-2 tablets daily 2015 HYDROXYZINE HCL 05668621099 No Longer Active Breanne Madl BUSINESS SERVICES ADMINISTRATOR Active ORTHO TRI-CYCLEN (28) 0.18/0.215/0.25 MG-35 MCG TABS 1 daily NORGESTIM-ETH ESTRAD TRIPHASIC 17216752265 No Longer Active Breanne Madl BUSINESS SERVICES ADMINISTRATOR Active CLARITIN 10 MG TAB 1 tablet by mouth daily as needed for itchy r khari LORATADINE 36561587393 No Longer Active Ned Navarrete MD Active AUGMENTIN 875-125 MG TAB 1 po BID x 10 days with food AMOXICILLIN-POT CLAVULANATE 24727102277 No Longer Active Toni Washington DO Active ORTHO TRI-CYCLEN (28) 0.18/0.215/0.25 MG-35 MCG TABS 1 daily NORGESTIM-ETH ESTRAD TRIPHASIC 75849405497 No Longer Active Ned Navarrete MD Active ZOFRAN ODT 4 MG TBDP 1 po q6hr PRN Nausea ONDAN SETRON 62064462244 No Longer Active Ned Navarrete MD Active [facility] MEL[facility] 3 MG TABS Take 1 tablet at bedtime. 2013 MELATONIN 14575521520 No Longer Active Ned Navarrete MD Activ e BIOTIN 1000 MCG TABS Take 2 tablets daily BIOTI N 06394300050 No Longer Active Ned Navarrete MD Active OMEPRAZOLE 20 MG CPDR 1 tablet by mouth daily O MEPRAZOLE 77542413784 No Longer Active Mariana Moses APRN Active LATUDA 80 MG TABS 1 tablet daily LURASIDONE HCL 54408610069 No Longer Active Mariana Moses APRN Active ZOVIRAX 400 MG TABS Take 1 tablet every 8 hours as needed 2 ACYCLOVIR 02931502018 No Longer Active Ned Navarrete MD Activ e ZITHROMAX Z-CHACE 250 MG TABS 2 today, then 1 daily for 4 days 201 10/06/11 AZITHROMYCIN 70495507041 No Longer Active Ned Navarrete MD Active TOPAMAX 100 MG TABS 1 tablet daily TOPIRAMATE 54 068744019 No Longer Active Ned Navarrete MD Active AMOXICILLIN 500 MG CAPS 2 po BID x 10 days AMOX ICILLIN 19717898505 No Longer Active Saskia Simon MD PhD Active NAPROSYN 375 MG TAB 1 twice a day as needed for chest pain 04/01 NAPROXEN 40441353529 No Longer Active Saskia Simon MD PhD Active HYDROCORTISONE 2.5 % EXT CREA Apply three times a day to aff ected area HYDROCORTISONE 16123483804 No Longer Active Ned Navarrete MD Active TOPIRAMATE 50 MG TABS 1 QD TOPIRAMATE 88727535434 No Longer Active Ned Navarrete MD Active FANAPT 6 MG TABS 1 BID ILOPERIDONE 19367239466 No L onger Active Ned Navarrete MD Active CIPROFLOXACIN HCL 0.3 % SOLN 1 drop in right eye every 2 hours for 2 days, then 1 drop four times a day CIPROFLOXACIN HCL 78376155552 No Longer Active Ned Navarrete MD Active LORATADINE 10 MG TABS 1 tablet by mouth daily L ORATADINE 18270638430 No Longer Active Ned Navarrete MD Active RANITIDINE HCL 150 MG CAPS 1 twice a day RANITI DINE HCL 40183823735 No Longer Active Ned Navarrete MD Active RANITIDINE HCL 150 MG CAPS 1 twice a day RANITIDINE HCL 150 MG CAPS 970278 RANITIDINE HCL Inactive LORATADINE 10 MG TABS 1 tablet by mouth daily LORATADINE 10 MG TABS 819569 LORATADINE Inactive CIPROFLOXACIN HCL 0.3 % SOLN 1 drop in right eye every 2 hours for 2 days, then 1 drop four times a day CIPROFLOXACIN HCL 0.3 % SOLN 215967 CIPROFLOXACIN HCL Inactive FANAPT 6 MG TABS 1 BID FANAPT 6 MG TABS ILO PERIDONE Inactive TOPIRAMATE 50 MG TABS 1 QD TOPIRAMATE 50 MG TABS 1 69206 TOPIRAMATE Inactive HYDROCORTISONE 2.5 % EXT CREA Apply three times a day to aff ected area HYDROCORTISONE 2.5 % EXT CREA 844314 HYDROCORTIS ONE Inactive NAPROSYN 375 MG TAB 1 twice a day as needed for chest pain 04/01 NAPROSYN 375 MG TAB NAPROXEN Inactive TOPAMAX 100 MG TABS 1 tablet daily TOPAMAX 100 MG TABS 924651 TOPIRAMATE Inactive ZOVIRAX 400 MG TABS Take 1 tablet every 8 hours as needed 2 ZOVIRAX 400 MG TABS 163509 ACYCLOVIR Inactive LATUDA 80 MG TABS 1 tablet daily LATUDA 80 MG TA BS LURASIDONE HCL Inactive OMEPRAZOLE 20 MG CPDR 1 tablet by mouth daily OMEPRAZOLE 20 MG CPDR 062731 OMEPRAZOLE Inactive BIOTIN 1000 MCG TABS Take 2 tablets daily BIOTIN 1000 MCG TABS 552840 BIOTIN Inactive [facility] M[facility] 3 MG TABS Take 1 tablet at bedtime. 2013 [facility] 3 MG TABS 626372 MELATONIN Inactive ZOFRAN ODT 4 MG TBDP 1 po q6hr PRN Nausea ZOFRAN ODT 4 MG TBDP 939131 ONDANSETRON Inactive ORTHO TRI-CYCLEN (28) 0.18/0.215/0.25 MG-35 MCG TABS 1 daily ORTHO TRI-CYCLEN (28) 0.18/0.215/0.25 MG-35 MCG TABS 193953 NORGESTIM-ETH ESTRAD TRIPHASIC Inactive CLARITIN 10 MG TAB 1 tablet by mouth daily as needed for itchy r khari CLARITIN 10 MG TAB 186031 LORATADINE Inactive ORTHO TRI-CYCLEN (28) 0.18/0.215/0.25 MG-35 MCG TABS 1 daily ORTHO TRI-CYCLEN (28) 0.18/0.215/0.25 MG-35 MCG TABS 605426 NORGESTIM-ETH ESTRAD TRIPHASIC Inactive HYDROXYZINE HCL 25 MG TABS Take 1-2 tablets daily 2015 HYDROXYZINE HCL 25 MG TABS 686913 HYDROXYZINE HCL Inactive LORATADINE 10 MG TABS 1 tablet by mouth daily LORATADINE 10 MG TABS 180745 LORATADINE Inactive CEPHALEXIN 500 MG ORAL CAPS CEPHALEX IN 500 MG ORAL CAPS 546667 CEPHALEXIN Inactive PREDNISONE 20 MG TABS Take 2 daily for 3 days and then 1 [address]man ly for 3 days PREDNISONE 20 MG TABS 037443 PREDNISONE Inacti ve AMOXICILLIN 500 MG CAPS 2 po BID x 10 days AMOXICILLIN 500 MG CAPS 201687 AMOXICILLIN Inactive ZITHROMAX Z-CHACE 250 MG TABS 2 today, then 1 daily for 4 days 201 10/06/11 ZITHROMAX Z-CHACE 250 MG TABS 9283718 AZITHROMYCIN Inac tive AUGMENTIN 875-125 MG TAB 1 po BID x 10 days with food AUGMENTIN 875-125 MG TAB 433997 AMOXICILLIN-POT CLAVULANATE Inactiv e Advance Directives Directive [...] 16 yo)) Fluzone preservative free (>3 yrs.) [[id number]] Influenza, seasonal, injectable, preservative free MPSV4 (meningococcal polysaccharide vaccination) Menactra meningococcal polysaccharide vaccine (MPSV4) hepatitis A immunization #1 Havrix-Pedi hepa titis A vaccine, unspecified formulation Adacel (Tetanus, reduced Diphtheria, and acellular Per tussis Immunization) Adacel [[id number]] tetanus toxoid, reduced diph theria toxoid, and [...] Range Description blood pressure, diastolic - 8462-4 71 mm[Hg] BP michele blood pressure, systolic - 8480-6 101 mm[Hg] BP sys pulse rate E&M - 8867-4 123 /min H eart rate temperature E&M 99.3 [degF] Body temp erature weight E&M - 3141-9 146 [lb_av] Weigh t Measured blood pressure, diastolic - 8462-4 65 mm[Hg] [...] 11 .0-15.0 platelet count 210 THOUSAND/UL 10*3/mm3 607-931 0603/11/02 mean platelet volume 10.3 fL 7.5-11.5 Lab [...] Negative nitrite, urine, semiquantitative Negative Neg ative Office Visit: 4 wk OB - Urinalysis protein, urine, semiquantitative (dipstick) N glucose, urine, semiquantitative N nitrite, urine, semiquantitative N Encounters Code Encounter Date Provider Facility CPT-10951 Level 3 Est. Patient 15:21:38 LINK TRAINER MAINTENANCE WORKER Rayna Pepper APRN [facility] CPT-68683 Level 3 Est. Patient 15:35:51 LINK TRAINER MAINTENANCE WORKER Ned Navarrete MD [facility] CPT-10537 Level 2 Est. Patient 12:43:40 CDT Ned Navarrete MD [facility] CPT-26205 Level 3 Est. Patient 14:38:48 CDT Toni duque DO [facility] CPT-65721 Level 3 Est. Patient 09:02:58 LINK TRAINER MAINTENANCE WORKER George paulson MD [facility] CPT-23083 Level 3 Est. Patient 17:42:32 CDT Ned Navarrete MD [facility] CPT-81069 Level 3 Est. Patient 11:04:31 LINK TRAINER MAINTENANCE WORKER Mariana Torrez ALEXIS [facility] CPT-76551 Level 4 Est. Patient 12:27:05 LINK TRAINER MAINTENANCE WORKER Ned Navarrete MD [facility] CPT-72434 Level 3 Est. Patient 11:31:58 LINK TRAINER MAINTENANCE WORKER Ned Navarrete MD [facility] CPT-52247 Level 3 Est. Patient 16:49:32 CDT Ned Navarrete MD [facility] CPT-17848 Level 4 Est. Patient 14:11:59 LINK TRAINER MAINTENANCE WORKER Saskia green MD PhD [facility] CPT-31639 Level 3 Est. Patient 17:34:25 CDT Ned Navarrete MD [facility] CPT-66022 Level 3 Est. Patient 17:34:19 CDT Ned Navarrete MD [facility] CPT-23698 Level 3 Est. Patient 13:46:05 CDT Ned Navarrete MD [facility] CPT-15008 Level 3 Est. Patient 16:55:47 LINK TRAINER MAINTENANCE WORKER Ned Navarrete MD [facility] CPT-60100 Level 2 Est. Patient 17:33:08 LINK TRAINER MAINTENANCE WORKER Ned Navarrete MD [facility] CPT-68928 Level 3 Est. Patient 16:25:26 LINK TRAINER MAINTENANCE WORKER Ned Navarrete MD [facility] Procedures Code Procedure Name Date Entry Date Standard Desc ription CPT-72515 OBGTT 1 - LAB USE ONLY 10:15:57 CDT CPT-58494 Venipuncture Draw Fee 10:15:57 CDT CPT-07067 Visit 15:07:16 LINK TRAINER MAINTENANCE WORKER CPT-60516 Visit 16:49:41 LINK TRAINER MAINTENANCE WORKER CPT-16114 [facility] limited - XRAY USE ONLY 16:38:01 CS T CPT-59798 [facility] comp > 14 weeks - XRAY USE ONLY 17:00:59 LINK TRAINER MAINTENANCE WORKER CPT-43421 UA w micro - LAB USE ONLY 16:59:38 CDT 2015 CPT-90449 TSH - LAB USE ONLY 16:59:38 CDT CPT-09658 Venipuncture Draw Fee 16:59:38 CDT CPT-17480 Spec Collection and Handling Fee 14:01:24 C DT CPT-50280 Visit 14:01:24 CDT CPT-033 [facility] Med Screen 14:03:18 CDT CPT-033 [facility] Med Screen 11:04:57 CDT CPT-033 [facility] Med Screen 10:29:44 CDT CPT-80866 Administration 2+ single or combination vaccines inc oral 14:02:47 LINK TRAINER MAINTENANCE WORKER CPT-27195 Administration single or combination vac cine inc oral 14:02:47 LINK TRAINER MAINTENANCE WORKER CPT-71053 Hepatitis A ped/adol 2 dose schedule 14:02:47 LINK TRAINER MAINTENANCE WORKER CPT-45451 Gardasil 14:02:47 LINK TRAINER MAINTENANCE WORKER CPT-30844 Administration single or combination vac cine inc oral 11:40:38 LINK TRAINER MAINTENANCE WORKER CPT-40364 Gardasil 11:40:38 LINK TRAINER MAINTENANCE WORKER CPT-33147 Administration single or combination vac cine inc oral 09:45:00 CDT CPT-76657 Influenza Preservative Free split virus >age 3 09:45:00 CDT CPT-00152 Venipuncture Draw Fee 07:59:02 CDT
--- OUTSIDE RECORDS SUMMARY | 2019-10-10 20:22 | XMS REPORT | Clinical Summary ---
Author Author Admin, Son Rodriguez [facility] Address Unknown Phone Unavailable Allergies, Adverse Reactions, [...] condition or complication Methamphetamine abuse 305.70 Inactive [facility] Amphetamine or related acting [...] upper respiratory infections of un specified site V22.2 Active Maia Wood SELINA state, incidental NASOLACRIMAL DUCT OBSTRUCTION, LEFT ICD-375.56 Inactive Ned Navarrete MD ANKLE SPRAIN ICD-845.00 Inactive Ned manley MD NASOLACRIMAL DUCT OBSTRUCTION, RIGHT ICD-375.56 Inactive Ned Navarrete MD COSTOCHONDRITIS ICD-733.6 Inactive Saskia Simon MD PhD DERMATITIS, ALLERGIC ICD-692.9 Inactive Saskia Simon MD PhD WEIGHT GAIN ICD-783.1 Inactive Ned Navarrete MD VISUAL CHANGES ICD-368.10 Inactive Ned Prescott MD Pharyngitis, acute ICD-462 Inactive Ned Navarrete MD Gastroenteritis ICD-558.9 Inactive Ned Prescott MD Gastroenteritis Inactive George Frances MD CONCUSSION WITH NO LOSS OF CONSCIOUSNESS ICD-850.0 Inactive Ned Navarrete MD Drug use complicating , second trimester ICD-648.33 Inactive Missy [facility] L[facility] Methamphetamine abuse ICD-305.70 Inactive Andreea [facility] LRT 20 weeks gestation of ICD-V28.9 Inac tialexandra [facility] LRT 22 weeks gestation of ICD-V28.9 Inac tialexandra [facility] LRT SINUSITIS, ACUTE ICD-461.9 Inactive Ned pérez MD Medication List Medication Instructions Start Date Stop Date Generic Name NDC Status Provider Patient Instruction PREDNISONE 20 MG TABS Take 2 daily for 3 days and then 1 herman ly for 3 days PREDNISONE 28600355328 No Longer Active Ned pérez MD Active CEPHALEXIN 500 MG ORAL CAPS CEPHALEXIN 56292347627 No Longer Active Ned Navarrete MD Active LATUDA 20 MG ORAL TABS LURASIDONE HCL 5103770 0230 Active Breanne Madl YACHT RIGGER Active LORATADINE 10 MG TABS 1 tablet by mouth daily L ORATADINE 30516609694 No Longer Active Breanne Madl YACHT RIGGER Active HYDROXYZINE HCL 25 MG TABS Take 1-2 tablets daily 2015 HYDROXYZINE HCL 42347861029 No Longer Active Breanne Madl YACHT RIGGER Active ORTHO TRI-CYCLEN (28) 0.18/0.215/0.25 MG-35 MCG TABS 1 daily NORGESTIM-ETH ESTRAD TRIPHASIC 06891539078 No Longer Active Breanne Madl YACHT RIGGER Active CLARITIN 10 MG TAB 1 tablet by mouth daily as needed for itchy r khari LORATADINE 33651587981 No Longer Active Ned Navarrete MD Active AUGMENTIN 875-125 MG TAB 1 po BID x 10 days with food AMOXICILLIN-POT CLAVULANATE 79357279523 No Longer Active Toni Washington DO Active ORTHO TRI-CYCLEN (28) 0.18/0.215/0.25 MG-35 MCG TABS 1 daily NORGESTIM-ETH ESTRAD TRIPHASIC 79642517145 No Longer Active Ned Navarrete MD Active ZOFRAN ODT 4 MG TBDP 1 po q6hr PRN Nausea ONDAN SETRON 69172688066 No Longer Active Ned Navarrete MD Active [facility] MEL[facility] 3 MG TABS Take 1 tablet at bedtime. 2013 MELATONIN 95738245970 No Longer Active Ned Navarrete MD Activ e BIOTIN 1000 MCG TABS Take 2 tablets daily BIOTI N 36550677651 No Longer Active Ned Navarrete MD Active OMEPRAZOLE 20 MG CPDR 1 tablet by mouth daily O MEPRAZOLE 82610852254 No Longer Active Mariana Moses APRN Active LATUDA 80 MG TABS 1 tablet daily LURASIDONE HCL 02243662187 No Longer Active Mariana Moses APRN Active ZOVIRAX 400 MG TABS Take 1 tablet every 8 hours as needed 2 ACYCLOVIR 72674365315 No Longer Active Ned Navarrete MD Activ e ZITHROMAX Z-CHACE 250 MG TABS 2 today, then 1 daily for 4 days 201 10/06/11 AZITHROMYCIN 17590904484 No Longer Active Ned Navarrete MD Active TOPAMAX 100 MG TABS 1 tablet daily TOPIRAMATE 54 886866402 No Longer Active Ned Navarrete MD Active AMOXICILLIN 500 MG CAPS 2 po BID x 10 days AMOX ICILLIN 05337436892 No Longer Active Saskia Simon MD PhD Active NAPROSYN 375 MG TAB 1 twice a day as needed for chest pain 04/01 NAPROXEN 03757230230 No Longer Active Saskia Simon MD PhD Active HYDROCORTISONE 2.5 % EXT CREA Apply three times a day to aff ected area HYDROCORTISONE 80152378932 No Longer Active Ned Navarrete MD Active TOPIRAMATE 50 MG TABS 1 QD TOPIRAMATE 93628242254 No Longer Active Ned Navarrete MD Active FANAPT 6 MG TABS 1 BID ILOPERIDONE 37949597514 No L onger Active Ned Navarrete MD Active CIPROFLOXACIN HCL 0.3 % SOLN 1 drop in right eye every 2 hours for 2 days, then 1 drop four times a day CIPROFLOXACIN HCL 33997111631 No Longer Active Ned Navarrete MD Active LORATADINE 10 MG TABS 1 tablet by mouth daily L ORATADINE 53776269312 No Longer Active Ned Navarrete MD Active RANITIDINE HCL 150 MG CAPS 1 twice a day RANITI DINE HCL 34567006078 No Longer Active Ned Navarrete MD Active RANITIDINE HCL 150 MG CAPS 1 twice a day RANITIDINE HCL 150 MG CAPS 287216 RANITIDINE HCL Inactive LORATADINE 10 MG TABS 1 tablet by mouth daily LORATADINE 10 MG TABS 254648 LORATADINE Inactive CIPROFLOXACIN HCL 0.3 % SOLN 1 drop in right eye every 2 hours for 2 days, then 1 drop four times a day CIPROFLOXACIN HCL 0.3 % SOLN 228893 CIPROFLOXACIN HCL Inactive FANAPT 6 MG TABS 1 BID FANAPT 6 MG TABS ILO PERIDONE Inactive TOPIRAMATE 50 MG TABS 1 QD TOPIRAMATE 50 MG TABS 1 35056 TOPIRAMATE Inactive HYDROCORTISONE 2.5 % EXT CREA Apply three times a day to aff ected area HYDROCORTISONE 2.5 % EXT CREA 646326 HYDROCORTIS ONE Inactive NAPROSYN 375 MG TAB 1 twice a day as needed for chest pain 04/01 NAPROSYN 375 MG TAB NAPROXEN Inactive TOPAMAX 100 MG TABS 1 tablet daily TOPAMAX 100 MG TABS 684479 TOPIRAMATE Inactive ZOVIRAX 400 MG TABS Take 1 tablet every 8 hours as needed 2 ZOVIRAX 400 MG TABS 668953 ACYCLOVIR Inactive LATUDA 80 MG TABS 1 tablet daily LATUDA 80 MG TA BS LURASIDONE HCL Inactive OMEPRAZOLE 20 MG CPDR 1 tablet by mouth daily OMEPRAZOLE 20 MG CPDR 168410 OMEPRAZOLE Inactive BIOTIN 1000 MCG TABS Take 2 tablets daily BIOTIN 1000 MCG TABS 666064 BIOTIN Inactive [facility] MEL[facility] 3 MG TABS Take 1 tablet at bedtime. 2013 [facility] MEL[facility] 3 MG TABS 748491 MELATONIN Inactive ZOFRAN ODT 4 MG TBDP 1 po q6hr PRN Nausea ZOFRAN ODT 4 MG TBDP 357320 ONDANSETRON Inactive ORTHO TRI-CYCLEN (28) 0.18/0.215/0.25 MG-35 MCG TABS 1 daily ORTHO TRI-CYCLEN (28) 0.18/0.215/0.25 MG-35 MCG TABS 187265 NORGESTIM-ETH ESTRAD TRIPHASIC Inactive CLARITIN 10 MG TAB 1 tablet by mouth daily as needed for itchy r khari CLARITIN 10 MG TAB 844143 LORATADINE Inactive ORTHO TRI-CYCLEN (28) 0.18/0.215/0.25 MG-35 MCG TABS 1 daily ORTHO TRI-CYCLEN (28) 0.18/0.215/0.25 MG-35 MCG TABS 669803 NORGESTIM-ETH ESTRAD TRIPHASIC Inactive HYDROXYZINE HCL 25 MG TABS Take 1-2 tablets daily 2015 HYDROXYZINE HCL 25 MG TABS 451702 HYDROXYZINE HCL Inactive LORATADINE 10 MG TABS 1 tablet by mouth daily LORATADINE 10 MG TABS 455367 LORATADINE Inactive CEPHALEXIN 500 MG ORAL CAPS CEPHALEX IN 500 MG ORAL CAPS 939538 CEPHALEXIN Inactive PREDNISONE 20 MG TABS Take 2 daily for 3 days and then 1 herman ly for 3 days PREDNISONE 20 MG TABS 236725 PREDNISONE Inacti ve AMOXICILLIN 500 MG CAPS 2 po BID x 10 days AMOXICILLIN 500 MG CAPS 021809 AMOXICILLIN Inactive ZITHROMAX Z-CHACE 250 MG TABS 2 today, then 1 daily for 4 days 201 10/06/11 ZITHROMAX Z-CHACE 250 MG TABS 3506539 AZITHROMYCIN Inac tive AUGMENTIN 875-125 MG TAB 1 po BID x 10 days with food AUGMENTIN 875-125 MG TAB 524968 AMOXICILLIN-POT CLAVULANATE Inactiv e Advance Directives Directive [...] 18 yo)) Fluzone preservative free (>3 yrs.) [[id number]] Influenza, seasonal, injectable, preservative free MPSV4 (meningococcal polysaccharide vaccination) Menactra meningococcal polysaccharide vaccine (MPSV4) hepatitis A immunization #1 Havrix-Pedi hepa titis A vaccine, unspecified formulation Adacel (Tetanus, reduced Diphtheria, and acellular Per tussis Immunization) Adacel [[id number]] tetanus toxoid, reduced diph theria toxoid, and [...] BP michele blood pressure, systolic - 8480-6 110 mm[Hg] BP sys pulse rate E&M - 8867-4 86 /min H eart rate temperature E&M 97.6 [degF] Body temp erature weight E&M - 3141-9 155.5 [lb_av] Weigh t Measured blood pressure, diastolic - 8462-4 70 mm[Hg] BP michele blood pressure, systolic - 8480-6 114 mm[Hg] BP sys pulse rate E&M - 8867-4 83 /min H eart rate temperature E&M 98.2 [degF] Body temp erature weight E&M - 3141-9 156.5 [lb_av] Weigh t Measured blood pressure, diastolic - 8462-4 71 mm[Hg] BP michele blood pressure, systolic - 8480-6 107 mm[Hg] BP sys pulse rate E&M - 8867-4 120 /min H eart rate temperature E&M 98.8 [degF] Body temp erature weight E&M - 3141-9 149.5 [lb_av] Weigh t Measured blood pressure, diastolic - 8462-4 71 mm[Hg] [...] 11 .0-15.0 platelet count 210 THOUSAND/UL 10*3/mm3 779-992 0934/11/02 mean platelet volume 10.3 fL 7.5-11.5 Lab [...] N Encounters Code Encounter Date Provider Facility CPT-01120 Level 3 Est. Patient 15:21:38 LEGAL BILLING COORDINATOR Rayna Pepper Formerly named [facility] CPT-27326 Level 3 Est. Patient 15:35:51 LEGAL BILLING COORDINATOR Ned Navarrete MD [facility] CPT-76003 Level 2 Est. Patient 12:43:40 CDT Ned Navarrete MD [facility] CPT-36993 Level 3 Est. Patient 14:38:48 CDT Toni duque DO [facility] CPT-46310 Level 3 Est. Patient 09:02:58 LEGAL BILLING COORDINATOR George paulson MD [facility] CPT-24581 Level 3 Est. Patient 17:42:32 CDT Ned Navarrete MD [facility] CPT-70812 Level 3 Est. Patient 11:04:31 LEGAL BILLING COORDINATOR Mariaan Torrez [facility] CPT-44165 Level 4 Est. Patient 12:27:05 LEGAL BILLING COORDINATOR Ned Navarrete MD [facility] CPT-61492 Level 3 Est. Patient 11:31:58 LEGAL BILLING COORDINATOR Ned Navarrete MD [facility] CPT-33727 Level 3 Est. Patient 16:49:32 CDT Ned Navarrete MD [facility] CPT-45824 Level 4 Est. Patient 14:11:59 LEGAL BILLING COORDINATOR Saskia green MD PhD [facility] CPT-63759 Level 3 Est. Patient 17:34:25 CDT Ned Navarrete MD [facility] CPT-06341 Level 3 Est. Patient 17:34:19 CDT Ned Navarrete MD [facility] CPT-49949 Level 3 Est. Patient 13:46:05 CDT Ned Navarrete MD [facility] CPT-58735 Level 3 Est. Patient 16:55:47 LEGAL BILLING COORDINATOR Ned Navarrete MD [facility] CPT-03680 Level 2 Est. Patient 17:33:08 LEGAL BILLING COORDINATOR Ned Navarrete MD [facility] CPT-20571 Level 3 Est. Patient 16:25:26 LEGAL BILLING COORDINATOR Ned Navarrete MD [facility] Procedures Code Procedure Name Date Entry Date Standard Desc ription CPT-21307 Visit 15:57:29 CDT CPT-28063 First Vx - Ix admin via ID I M or jet injects without counseling by physician 15:53:15 CDT CPT-51685 Boostrix Intramuscular Suspension 5-2.5-18.5 201 01/28/11 15:53:14 CDT CPT-41981 Tdap 7yrs or > 14:41:06 CDT CPT-84756 Visit 17:47:08 CDT CPT-15112 OBGTT 1 - LAB USE ONLY 10:15:57 CDT CPT-13953 Venipuncture Draw Fee 10:15:57 CDT CPT-33503 Visit 15:07:16 LEGAL BILLING COORDINATOR CPT-60529 Visit 16:49:41 LEGAL BILLING COORDINATOR CPT-22554 Sono OB limited - XRAY USE ONLY 16:38:01 CS T CPT-21114 Sono OB comp > 14 weeks - XRAY USE ONLY 17:00:59 LEGAL BILLING COORDINATOR CPT-18560 UA w micro - LAB USE ONLY 16:59:38 CDT 2015 CPT-88095 TSH - LAB USE ONLY 16:59:38 CDT CPT-20524 Venipuncture Draw Fee 16:59:38 CDT CPT-77034 Spec Collection and Handling Fee 14:01:24 C DT CPT-71377 Visit 14:01:24 CDT CPT-033 KB Med Screen 14:03:18 CDT CPT-033 KB Med Screen 11:04:57 CDT CPT-033 KB Med Screen 10:29:44 CDT CPT-08285 Administration 2+ single or combination vaccines inc oral 14:02:47 LEGAL BILLING COORDINATOR CPT-36197 Administration single or combination vac cine inc oral 14:02:47 LEGAL BILLING COORDINATOR CPT-06283 Hepatitis A ped/adol 2 dose schedule 14:02:47 LEGAL BILLING COORDINATOR CPT-18224 Gardasil 14:02:47 LEGAL BILLING COORDINATOR CPT-85459 Administration single or combination vac cine inc oral 11:40:38 LEGAL BILLING COORDINATOR CPT-25031 Gardasil 11:40:38 LEGAL BILLING COORDINATOR CPT-21582 Administration single or combination vac cine inc oral 09:45:00 CDT CPT-68460 Influenza Preservative Free split virus >age 3 09:45:00 CDT CPT-63277 Venipuncture Draw Fee 07:59:02 CDT
--- OUTSIDE RECORDS SUMMARY | 2019-10-10 20:22 | XMS REPORT | Clinical Summary ---
Author Author Beka, Son Rodriguez [facility] Address Unknown Phone Unavailable Allergies, Adverse [...] Navarrete MD Dizziness and giddiness Gastroenteritis 558.9 Active Mariana Moses APR N Other and unspecified noninfectious gastroenteritis and colitis Amenorrhea 626.0 Active Ned Navarrete MD Absence of menstruation NASOLACRIMAL DUCT OBSTRUCTION, LEFT ICD-375.56 Inactive Ned Navarrete MD WEIGHT GAIN ICD-783.1 Inactive Ned Navarrete MD ANKLE SPRAIN ICD-845.00 [...] MCG TABS 1 daily NORGESTIM-ETH ESTRAD TRIPHASIC 98278360002 No Longer Active Ned Navarrete MD Active ZOFRAN ODT 4 MG TBDP 1 po q6hr PRN Nausea ONDAN SETRON 86202689178 No Longer Active Ned Navarrete MD Active [facility] MEL[facility] 3 MG TABS Take 1 tablet at bedtime. 2013 MELATONIN 23119566061 No Longer Active Ned Navarrete MD Activ e BIOTIN 1000 MCG TABS Take 2 tablets daily BIOTI N 95315258628 No Longer Active Ned Navarrete MD Active OMEPRAZOLE 20 MG CPDR 1 tablet by mouth daily O MEPRAZOLE 17035076129 No Longer Active Mariana Moses APRN Active LATUDA 80 MG TABS 1 tablet daily LURASIDONE HCL 28205752875 No Longer Active Mariana Moses APRN Active ZOVIRAX 400 MG TABS Take 1 tablet every 8 hours as needed 2 ACYCLOVIR 17688343153 No Longer Active Ned Navarrete MD Activ e ZITHROMAX Z-CHACE 250 MG TABS 2 today, then 1 daily for 4 days 201 10/06/11 AZITHROMYCIN 21736458479 No Longer Active Ned Navarrete MD Active HYDROXYZINE HCL 25 MG TABS Take 1-2 tablets daily HYDROXYZINE HCL 25517921154 Active Ned Navarrete MD Active TOPAMAX 100 MG TABS 1 tablet daily TOPIRAMATE 54 777839665 No Longer Active Ned Navarrete MD Active AMOXICILLIN 500 MG CAPS 2 po BID x 10 days AMOX ICILLIN 12912871064 No Longer Active Saskia Torri Madril MD PhD Active NAPROSYN 375 MG TAB 1 twice a day as needed for chest pain 04/01 NAPROXEN 47569921338 No Longer Active Saskia Simon MD PhD Active HYDROCORTISONE 2.5 % EXT CREA Apply three times a day to aff ected area HYDROCORTISONE 00647218774 No Longer Active Ned Navarrete MD Active LORATADINE 10 MG TABS 1 tablet by mouth daily L ORATADINE 11763091196 Active Ned Navarrete MD Active TOPIRAMATE 50 MG TABS 1 QD TOPIRAMATE 73342794415 No Longer Active Ned Navarrete MD Active FANAPT 6 MG TABS 1 BID ILOPERIDONE 32093784653 No L onger Active Ned Navarrete MD Active CIPROFLOXACIN HCL 0.3 % SOLN 1 drop in right eye every 2 hours for 2 days, then 1 drop four times a day CIPROFLOXACIN HCL 54714355371 No Longer Active Ned Navarrete MD Active LORATADINE 10 MG TABS 1 tablet by mouth daily L ORATADINE 90397658101 No Longer Active Ned Navarrete MD Active RANITIDINE HCL 150 MG CAPS 1 twice a day RANITI DINE HCL 66364326315 No Longer Active Ned Navarrete MD Active RANITIDINE HCL 150 MG CAPS 1 twice a day RANITIDINE HCL 150 MG CAPS 415795 RANITIDINE HCL Inactive LORATADINE 10 MG TABS 1 tablet by mouth daily LORATADINE 10 MG TABS 439935 LORATADINE Inactive CIPROFLOXACIN HCL 0.3 % SOLN 1 drop in right eye every 2 hours for 2 days, then 1 drop four times a day CIPROFLOXACIN HCL 0.3 % SOLN 756920 CIPROFLOXACIN HCL Inactive FANAPT 6 MG TABS 1 BID FANAPT 6 MG TABS ILO PERIDONE Inactive TOPIRAMATE 50 MG TABS 1 QD TOPIRAMATE 50 MG TABS 1 40923 TOPIRAMATE Inactive HYDROCORTISONE 2.5 % EXT CREA Apply three times a day to aff ected area HYDROCORTISONE 2.5 % EXT CREA 995592 HYDROCORTIS ONE Inactive NAPROSYN 375 MG TAB 1 twice a day as needed for chest pain 04/01 NAPROSYN 375 MG TAB 19790729 NAPROXEN Inactive TOPAMAX 100 MG TABS 1 tablet daily TOPAMAX 100 MG TABS 1998 TOPIRAMATE Inactive ZOVIRAX 400 MG TABS Take 1 tablet every 8 hours as needed 2 ZOVIRAX 400 MG TABS 19720728 ACYCLOVIR Inactive LATUDA 80 MG TABS 1 tablet daily LATUDA 80 MG TA BS LURASIDONE HCL Inactive OMEPRAZOLE 20 MG CPDR 1 tablet by mouth daily OMEPRAZOLE 20 MG CPDR 119628 OMEPRAZOLE Inactive BIOTIN 1000 MCG TABS Take 2 tablets daily BIOTIN 1000 MCG TABS 656701 BIOTIN Inactive [facility] MEL[facility]IN 3 MG TABS Take 1 tablet at bedtime. 2013 [facility] MEL[facility]IN 3 MG TABS 114303 MELATONIN Inactive ZOFRAN ODT 4 MG TBDP 1 po q6hr PRN Nausea ZOFRAN ODT 4 MG TBDP 749657 ONDANSETRON Inactive ORTHO TRI-CYCLEN (28) 0.18/0.215/0.25 MG-35 MCG TABS 1 daily ORTHO TRI-CYCLEN (28) 0.18/0.215/0.25 MG-35 MCG TABS 658397 NORGESTIM-ETH ESTRAD TRIPHASIC Inactive AMOXICILLIN 500 MG CAPS 2 po BID x 10 days AMOXICILLIN 500 MG CAPS 894332 AMOXICILLIN Inactive ZITHROMAX Z-CHACE 250 MG TABS 2 today, then 1 daily for 4 days 201 10/06/11 ZITHROMAX Z-CHACE 250 MG TABS 9972314 AZITHROMYCIN Inac tive Advance Directives Directive Description [...] 18 yo)) Fluzone preservative free (>3 yrs.) [[id number]] Influenza, seasonal, injectable, preservative free MPSV4 (meningococcal polysaccharide vaccination) Menactra meningococcal polysaccharide vaccine (MPSV4) hepatitis A immunization #1 Havrix-Pedi hepa titis A vaccine, unspecified formulation Adacel (Tetanus, reduced Diphtheria, and acellular Per tussis Immunization) Adacel [[id number]] tetanus toxoid, reduced diph theria toxoid, and [...] (measles, mumps, rubella) virus immunization #1 Historical Hemophilus influenza B immunization #3 Historica l Haemophilus influenzae type b vaccine, conjugate unspecified formulation DPT immunization #3 Historical hepatitis B vaccine #3 Historical hepatitis B vaccine, unspecified formulation Hemophilus influenza B immunization #2 Historica l Haemophilus influenzae type b vaccine, conjugate unspecified formulation oral polio vaccine (OPV) #2 Historical case ovirus vaccine, unspecified formulation DPT immunization #2 Historical Hemophilus influenza B immunization #1 Historica l Haemophilus influenzae type b vaccine, conjugate unspecified formulation oral polio vaccine (OPV) #1 Historical case ovirus vaccine, unspecified formulation DPT immunization #1 Historical hepatitis B vaccine #2 given Historical hep atitis B vaccine, unspecified formulation hepatitis B vaccine #1 [...] Name Value Unit Range Description [facility] Report[facility] human chorionic gonadotropin , urine, qualitative (urine test) Negative Negative Encounters Code Encounter Date Provider Facility CPT-33565 Level 3 Est. Patient 17:42:32 CDT Ned Navarrete MD [facility] CPT-16110 Level 3 Est. Patient 11:04:31 AUTOMOTIVE PARTS SPECIALIST Mariana Torrez APRN [facility] CPT-49600 Level 4 Est. Patient 12:27:05 AUTOMOTIVE PARTS SPECIALIST Ned Navarrete MD [facility] CPT-48709 Level 3 Est. Patient 11:31:58 AUTOMOTIVE PARTS SPECIALIST Ned Navarrete MD [facility] CPT-35643 Level 3 Est. Patient 16:49:32 CDT Ned Navarrete MD [facility] CPT-66298 Level 4 Est. Patient 14:11:59 AUTOMOTIVE PARTS SPECIALIST Saskia green MD PhD [facility] CPT-36367 Level 3 Est. Patient 17:34:25 CDT Ned Navarrete MD [facility] CPT-17840 Level 3 Est. Patient 17:34:19 CDT Ned Navarrete MD [facility] CPT-02522 Level 3 Est. Patient 13:46:05 CDT Ned Navarrete MD [facility] CPT-83192 Level 3 Est. Patient 16:55:47 AUTOMOTIVE PARTS SPECIALIST Ned Navarrete MD [facility] CPT-09520 Level 2 Est. Patient 17:33:08 AUTOMOTIVE PARTS SPECIALIST Ned Navarrete MD [facility] CPT-86233 Level 3 Est. Patient 16:25:26 AUTOMOTIVE PARTS SPECIALIST Ned Navarrete MD [facility] Procedures Code Procedure Name Date Entry Date Standard Desc ription CPT-033 KB Med Screen 10:29:44 CDT CPT-38860 Administration 2+ single or combination vaccines inc oral 14:02:47 AUTOMOTIVE PARTS SPECIALIST CPT-38507 Administration single or combination vac cine inc oral 14:02:47 AUTOMOTIVE PARTS SPECIALIST CPT-50215 Hepatitis A ped/adol 2 dose schedule 14:02:47 AUTOMOTIVE PARTS SPECIALIST CPT-88687 Gardasil 14:02:47 AUTOMOTIVE PARTS SPECIALIST CPT-28793 Administration single or combination vac cine inc oral 11:40:38 AUTOMOTIVE PARTS SPECIALIST CPT-43502 Gardasil 11:40:38 AUTOMOTIVE PARTS SPECIALIST CPT-80586 Administration single or combination vac cine inc oral 09:45:00 CDT CPT-38730 Influenza Preservative Free split virus >age 3 09:45:00 CDT CPT-06981 Venipuncture Draw Fee 07:59:02 CDT
--- OUTSIDE RECORDS SUMMARY | 2019-10-10 20:23 | XMS REPORT | Clinical Summary ---
Author Author Admin, Son Chan Organization [facility] Address Unknown Phone Unavailable Allergies, Adverse [...] other normal WEIGHT GAIN ICD-783.1 Inactive Ned Navarrete MD [...] Generic Name NDC Status Provider Patient Instruction LORATADINE 10 MG TABS 1 tablet by mouth daily L ORATADINE [id number] No Longer Active Breanne Madl SERVICE ATTENDANT CAFETERIA Active HYDROXYZINE HCL 25 MG TABS Take 1-2 tablets daily 2015 HYDROXYZINE HCL 80814640494 No Longer Active Breanne Madl SERVICE ATTENDANT CAFETERIA Active ORTHO TRI-CYCLEN (28) 0.18/0.215/0.25 MG-35 MCG TABS 1 daily NORGESTIM-ETH ESTRAD TRIPHASIC 59646845693 No Longer Active Breanne Madl SERVICE ATTENDANT CAFETERIA Active CLARITIN 10 MG TAB 1 tablet by mouth daily as needed for itchy r khari LORATADINE 44205032079 No Longer Active Ned Navarrete MD Active AUGMENTIN 875-125 MG TAB 1 po BID x 10 days with food AMOXICILLIN-POT CLAVULANATE 02287503760 No Longer Active Toni Washington DO Active ORTHO TRI-CYCLEN (28) 0.18/0.215/0.25 MG-35 MCG TABS 1 daily NORGESTIM-ETH ESTRAD TRIPHASIC 68826895755 No Longer Active Ned Navarrete MD Active ZOFRAN ODT 4 MG TBDP 1 po q6hr PRN Nausea ONDAN SETRON 94841601524 No Longer Active Ned Navarrete MD Active [facility] MEL[facility] 3 MG TABS Take 1 tablet at bedtime. 2013 MELATONIN 73092999468 No Longer Active Ned Navarrete MD Activ e BIOTIN 1000 MCG TABS Take 2 tablets daily BIOTI N 91074311250 No Longer Active Ned Navarrete MD Active OMEPRAZOLE 20 MG CPDR 1 tablet by mouth daily O MEPRAZOLE 74101080028 No Longer Active Mariana Moses APRN Active LATUDA 80 MG TABS 1 tablet daily LURASIDONE HCL 19396215119 No Longer Active Mariana Moses APRN Active ZOVIRAX 400 MG TABS Take 1 tablet every 8 hours as needed 2 ACYCLOVIR 71219157481 No Longer Active Ned Navarrete MD Activ e ZITHROMAX Z-CHACE 250 MG TABS 2 today, then 1 daily for 4 days 201 10/06/11 AZITHROMYCIN 00862047368 No Longer Active Ned Navarrete MD Active TOPAMAX 100 MG TABS 1 tablet daily TOPIRAMATE 54 817733101 No Longer Active Ned Navarrete MD Active AMOXICILLIN 500 MG CAPS 2 po BID x 10 days AMOX ICILLIN 60277477379 No Longer Active Saskia Simon MD PhD Active NAPROSYN 375 MG TAB 1 twice a day as needed for chest pain 04/01 NAPROXEN 87017933742 No Longer Active Saskia Simon MD PhD Active HYDROCORTISONE 2.5 % EXT CREA Apply three times a day to aff ected area HYDROCORTISONE 24936517200 No Longer Active Ned Navarrete MD Active TOPIRAMATE 50 MG TABS 1 QD TOPIRAMATE 22555883838 No Longer Active Ned Navarrete MD Active FANAPT 6 MG TABS 1 BID ILOPERIDONE 22897439049 No L onger Active Ned Navarrete MD Active CIPROFLOXACIN HCL 0.3 % SOLN 1 drop in right eye every 2 hours for 2 days, then 1 drop four times a day CIPROFLOXACIN HCL 12282433749 No Longer Active Ned Navarrete MD Active LORATADINE 10 MG TABS 1 tablet by mouth daily L ORATADINE 65938516782 No Longer Active Ned Navarrete MD Active RANITIDINE HCL 150 MG CAPS 1 twice a day RANITI DINE HCL 12838565367 No Longer Active Ned Navarrete MD Active RANITIDINE HCL 150 MG CAPS 1 twice a day RANITIDINE HCL 150 MG CAPS 723655 RANITIDINE HCL Inactive LORATADINE 10 MG TABS 1 tablet by mouth daily LORATADINE 10 MG TABS 774444 LORATADINE Inactive CIPROFLOXACIN HCL 0.3 % SOLN 1 drop in right eye every 2 hours for 2 days, then 1 drop four times a day CIPROFLOXACIN HCL 0.3 % SOLN 373696 CIPROFLOXACIN HCL Inactive FANAPT 6 MG TABS 1 BID FANAPT 6 MG TABS ILO PERIDONE Inactive TOPIRAMATE 50 MG TABS 1 QD TOPIRAMATE 50 MG TABS 1 74194 TOPIRAMATE Inactive HYDROCORTISONE 2.5 % EXT CREA Apply three times a day to aff ected area HYDROCORTISONE 2.5 % EXT CREA 927756 HYDROCORTIS ONE Inactive NAPROSYN 375 MG TAB 1 twice a day as needed for chest pain 04/01 NAPROSYN 375 MG TAB NAPROXEN Inactive TOPAMAX 100 MG TABS 1 tablet daily TOPAMAX 100 MG TABS 961333 TOPIRAMATE Inactive ZOVIRAX 400 MG TABS Take 1 tablet every 8 hours as needed ZOVIRAX 400 MG TABS 899221 ACYCLOVIR Inactive LATUDA 80 MG TABS 1 tablet daily LATUDA 80 MG TA BS LURASIDONE HCL Inactive OMEPRAZOLE 20 MG CPDR 1 tablet by mouth daily OMEPRAZOLE 20 MG CPDR 085513 OMEPRAZOLE Inactive BIOTIN 1000 MCG TABS Take 2 tablets daily BIOTIN 1000 MCG TABS 137606 BIOTIN Inactive [facility] MEL[facility] 3 MG TABS Take 1 tablet at bedtime. 2013 [facility] MEL[facility] 3 MG TABS 221527 MELATONIN Inactive ZOFRAN ODT 4 MG TBDP 1 po q6hr PRN Nausea ZOFRAN ODT 4 MG TBDP 978995 ONDANSETRON Inactive ORTHO TRI-CYCLEN (28) 0.18/0.215/0.25 MG-35 MCG TABS 1 daily ORTHO TRI-CYCLEN (28) 0.18/0.215/0.25 MG-35 MCG TABS 548823 NORGESTIM-ETH ESTRAD TRIPHASIC Inactive CLARITIN 10 MG TAB 1 tablet by mouth daily as needed for itchy r khari CLARITIN 10 MG TAB 601619 LORATADINE Inactive ORTHO TRI-CYCLEN (28) 0.18/0.215/0.25 MG-35 MCG TABS 1 daily ORTHO TRI-CYCLEN (28) 0.18/0.215/0.25 MG-35 MCG TABS 481742 NORGESTIM-ETH ESTRAD TRIPHASIC Inactive HYDROXYZINE HCL 25 MG TABS Take 1-2 tablets daily 2015 HYDROXYZINE HCL 25 MG TABS 345089 HYDROXYZINE HCL Inactive LORATADINE 10 MG TABS 1 tablet by mouth daily LORATADINE 10 MG TABS 603648 LORATADINE Inactive AMOXICILLIN 500 MG CAPS 2 po BID x 10 days AMOXICILLIN 500 MG CAPS 516118 AMOXICILLIN Inactive ZITHROMAX Z-CHACE 250 MG TABS 2 today, then 1 daily for 4 days 201 10/06/11 ZITHROMAX Z-CHACE 250 MG TABS 7074638 AZITHROMYCIN Inac tive AUGMENTIN 875-125 MG TAB 1 po BID x 10 days with food AUGMENTIN 875-125 MG TAB 920300 AMOXICILLIN-POT CLAVULANATE Inactiv e Advance Directives Directive [...] 18 yo)) Fluzone preservative free (>3 yrs.) [[id number]] Influenza, seasonal, injectable, preservative free MPSV4 (meningococcal polysaccharide vaccination) Menactra meningococcal polysaccharide vaccine (MPSV4) hepatitis A immunization #1 Havrix-Pedi hepa titis A vaccine, unspecified formulation Adacel (Tetanus, reduced Diphtheria, and acellular Per tussis Immunization) Adacel [[id number]] tetanus toxoid, reduced diph theria toxoid, and [...] Range Description blood pressure, diastolic - 8462-4 67 mm[Hg] [...] - 3141-9 127 [lb_av] Weigh t Measured Encounters Code Encounter Date Provider Facility CPT-33606 Level 2 Est. Patient 12:43:40 CDT Ned Navarrete MD [facility] CPT-19316 Level 3 Est. Patient 14:38:48 CDT Toni duque DO [facility] CPT-78215 Level 3 Est. Patient 09:02:58 OBSERVER ELECTRICAL PROSPECTING George paulson MD [facility] CPT-38067 Level 3 Est. Patient 17:42:32 CDT Ned Navarrete MD [facility] CPT-44527 Level 3 Est. Patient 11:04:31 OBSERVER ELECTRICAL PROSPECTING Mariana Torrez APRN [facility] CPT-75150 Level 4 Est. Patient 12:27:05 OBSERVER ELECTRICAL PROSPECTING Ned Navarrete MD [facility] CPT-10669 Level 3 Est. Patient 11:31:58 OBSERVER ELECTRICAL PROSPECTING Ned Navarrete MD [facility] CPT-16516 Level 3 Est. Patient 16:49:32 CDT Ned Navarrete MD [facility] CPT-63353 Level 4 Est. Patient 14:11:59 OBSERVER ELECTRICAL PROSPECTING Saskia green MD PhD [facility] CPT-26684 Level 3 Est. Patient 17:34:25 CDT Ned Navarrete MD [facility] CPT-76799 Level 3 Est. Patient 17:34:19 CDT Ned Navarrete MD [facility] CPT-89253 Level 3 Est. Patient 13:46:05 CDT Ned Navarrete MD [facility] CPT-56211 Level 3 Est. Patient 16:55:47 OBSERVER ELECTRICAL PROSPECTING Ned Navarrete MD [facility] CPT-69030 Level 2 Est. Patient 17:33:08 OBSERVER ELECTRICAL PROSPECTING Ned Navarrete MD [facility] CPT-32080 Level 3 Est. Patient 16:25:26 OBSERVER ELECTRICAL PROSPECTING Ned Jiang [facility] Procedures Code Procedure Name Date Entry Date Standard Desc ription CPT-033 [facility] Med Screen 14:03:18 CDT CPT-033 [facility] Med Screen 11:04:57 CDT CPT-033 [facility] Med Screen 10:29:44 CDT CPT-09711 Administration 2+ single or combination vaccines inc oral 14:02:47 OBSERVER ELECTRICAL PROSPECTING CPT-91217 Administration single or combination vac cine inc oral 14:02:47 OBSERVER ELECTRICAL PROSPECTING CPT-26847 Hepatitis A ped/adol 2 dose schedule 14:02:47 OBSERVER ELECTRICAL PROSPECTING CPT-59151 Gardasil 14:02:47 OBSERVER ELECTRICAL PROSPECTING CPT-75915 Administration single or combination vac cine inc oral 11:40:38 OBSERVER ELECTRICAL PROSPECTING CPT-35854 Gardasil 11:40:38 OBSERVER ELECTRICAL PROSPECTING CPT-94128 Administration single or combination vac cine inc oral 09:45:00 CDT CPT-85214 Influenza Preservative Free split virus >age 3 09:45:00 CDT CPT-44084 Venipuncture Draw Fee 07:59:02 CDT
--- OUTSIDE RECORDS SUMMARY | 2019-10-10 20:23 | XMS REPORT | Clinical Summary ---
Author Author Admin, Son [facility] Address Unknown Phone Unavailable Allergies, Adverse Reactions, [...] gastroenteritis and colitis Amenorrhea 626.0 Active Ned Navrarete MD Absence of menstruation Gastroenteritis Inactive George [...] condition or complication Methamphetamine abuse 305.70 [facility] Amphetamine or related [...] upper respiratory infections of un specified site NASOLACRIMAL DUCT OBSTRUCTION, LEFT ICD-375.56 Inactive Ned Navarrete MD WEIGHT GAIN ICD-783.1 Inactive Ned Navarrete MD ANKLE SPRAIN ICD-845.00 Inactive Ned manley MD NASOLACRIMAL DUCT OBSTRUCTION, RIGHT ICD-375.56 Inactive Ned Navarrete MD DERMATITIS, ALLERGIC ICD-692.9 Inactive Saskia Simon MD PhD COSTOCHONDRITIS ICD-733.6 Inactive Saskia Simon MD PhD SINUSITIS, ACUTE ICD-461.9 Inactive Ned pérez MD CONCUSSION WITH NO LOSS OF CONSCIOUSNESS ICD-850.0 Inactive Ned Navarrete MD Pharyngitis, acute ICD-462 Inactive Ned Navarrete MD Gastroenteritis Inactive George Frances MD Gastroenteritis ICD-558.9 Inactive Ned Prescott MD Drug use complicating , second trimester ICD-648.33 Inactive Missy [facility] L[facility] Methamphetamine abuse ICD-305.70 Inactive Andreea [facility] LRT 20 weeks gestation of ICD-V28.9 Inac tialexandra [facility] LRT 22 weeks gestation of ICD-V28.9 Inac tialexandra [facility] LRT VISUAL CHANGES ICD-368.10 Inactive Ned Prescott MD Medication List Medication Instructions Start Date Stop Date Generic Name NDC Status Provider Patient Instruction PREDNISONE 20 MG TABS Take 2 daily for 3 days and then 1 herman ly for 3 days PREDNISONE 68328083995 No Longer Active Ned pérez MD Active CEPHALEXIN 500 MG ORAL CAPS CEPHALEXIN 15459523945 No Longer Active Ned Navarrete MD Active LATUDA 20 MG ORAL TABS LURASIDONE HCL 3868536 0230 Active Breanne Madl ELEMENTARY SCHOOL ART TEACHER Active LORATADINE 10 MG TABS 1 tablet by mouth daily L ORATADINE 98460924105 No Longer Active Breanne Madl ELEMENTARY SCHOOL ART TEACHER Active HYDROXYZINE HCL 25 MG TABS Take 1-2 tablets daily 2015 HYDROXYZINE HCL 14348032616 No Longer Active Breanne Madl ELEMENTARY SCHOOL ART TEACHER Active ORTHO TRI-CYCLEN (28) 0.18/0.215/0.25 MG-35 MCG TABS 1 daily NORGESTIM-ETH ESTRAD TRIPHASIC 71090059916 No Longer Active Breanne Madl ELEMENTARY SCHOOL ART TEACHER Active CLARITIN 10 MG TAB 1 tablet by mouth daily as needed for itchy r khari LORATADINE 64892229577 No Longer Active Ned Navarrete MD Active AUGMENTIN 875-125 MG TAB 1 po BID x 10 days with food AMOXICILLIN-POT CLAVULANATE 97227110472 No Longer Active Toni Washington DO Active ORTHO TRI-CYCLEN (28) 0.18/0.215/0.25 MG-35 MCG TABS 1 daily NORGESTIM-ETH ESTRAD TRIPHASIC 35265807294 No Longer Active Ned Navarrete MD Active ZOFRAN ODT 4 MG TBDP 1 po q6hr PRN Nausea ONDAN SETRON 02842235211 No Longer Active Ned Navarrete MD Active [facility] MEL[facility] 3 MG TABS Take 1 tablet at bedtime. 2013 MELATONIN 10410445647 No Longer Active Ned Navarrete MD Activ e BIOTIN 1000 MCG TABS Take 2 tablets daily BIOTI N 77586972079 No Longer Active Ned Navarrete MD Active OMEPRAZOLE 20 MG CPDR 1 tablet by mouth daily O MEPRAZOLE 41289402684 No Longer Active Mariana Moses APRN Active LATUDA 80 MG TABS 1 tablet daily LURASIDONE HCL 75285377051 No Longer Active Mariana Moses APRN Active ZOVIRAX 400 MG TABS Take 1 tablet every 8 hours as needed 2 ACYCLOVIR 59358617089 No Longer Active Ned Navarrete MD Activ e ZITHROMAX Z-CHACE 250 MG TABS 2 today, then 1 daily for 4 days 201 10/06/11 AZITHROMYCIN 73835202068 No Longer Active Ned Navarrete MD Active TOPAMAX 100 MG TABS 1 tablet daily TOPIRAMATE 54 233838330 No Longer Active Ned Navarrete MD Active AMOXICILLIN 500 MG CAPS 2 po BID x 10 days AMOX ICILLIN 80963175239 No Longer Active Saskia Simon MD PhD Active NAPROSYN 375 MG TAB 1 twice a day as needed for chest pain 04/01 NAPROXEN 95311461554 No Longer Active Saskia Simon MD PhD Active HYDROCORTISONE 2.5 % EXT CREA Apply three times a day to aff ected area HYDROCORTISONE 98240562433 No Longer Active Ned Navarrete MD Active TOPIRAMATE 50 MG TABS 1 QD TOPIRAMATE 99622255731 No Longer Active Ned Navarrete MD Active FANAPT 6 MG TABS 1 BID ILOPERIDONE 87614730485 No L onger Active Ned Navarrete MD Active CIPROFLOXACIN HCL 0.3 % SOLN 1 drop in right eye every 2 hours for 2 days, then 1 drop four times a day CIPROFLOXACIN HCL 15367225961 No Longer Active Ned Navarrete MD Active LORATADINE 10 MG TABS 1 tablet by mouth daily L ORATADINE 74565369497 No Longer Active Ned Navarrete MD Active RANITIDINE HCL 150 MG CAPS 1 twice a day RANITI DINE HCL 67426169764 No Longer Active Ned Navarrete MD Active RANITIDINE HCL 150 MG CAPS 1 twice a day RANITIDINE HCL 150 MG CAPS 226110 RANITIDINE HCL Inactive LORATADINE 10 MG TABS 1 tablet by mouth daily LORATADINE 10 MG TABS 402649 LORATADINE Inactive CIPROFLOXACIN HCL 0.3 % SOLN 1 drop in right eye every 2 hours for 2 days, then 1 drop four times a day CIPROFLOXACIN HCL 0.3 % SOLN 342045 CIPROFLOXACIN HCL Inactive FANAPT 6 MG TABS 1 BID FANAPT 6 MG TABS ILO PERIDONE Inactive TOPIRAMATE 50 MG TABS 1 QD TOPIRAMATE 50 MG TABS 1 94796 TOPIRAMATE Inactive HYDROCORTISONE 2.5 % EXT CREA Apply three times a day to aff ected area HYDROCORTISONE 2.5 % EXT CREA 518100 HYDROCORTIS ONE Inactive NAPROSYN 375 MG TAB 1 twice a day as needed for chest pain 04/01 NAPROSYN 375 MG TAB NAPROXEN Inactive TOPAMAX 100 MG TABS 1 tablet daily TOPAMAX 100 MG TABS 140245 TOPIRAMATE Inactive ZOVIRAX 400 MG TABS Take 1 tablet every 8 hours as needed 2 ZOVIRAX 400 MG TABS 696327 ACYCLOVIR Inactive LATUDA 80 MG TABS 1 tablet daily LATUDA 80 MG TA BS LURASIDONE HCL Inactive OMEPRAZOLE 20 MG CPDR 1 tablet by mouth daily OMEPRAZOLE 20 MG CPDR 367544 OMEPRAZOLE Inactive BIOTIN 1000 MCG TABS Take 2 tablets daily BIOTIN 1000 MCG TABS 743616 BIOTIN Inactive [facility] M[facility] 3 MG TABS Take 1 tablet at bedtime. 2013 [facility] M[facility] 3 MG TABS 102112 MELATONIN Inactive ZOFRAN ODT 4 MG TBDP 1 po q6hr PRN Nausea ZOFRAN ODT 4 MG TBDP 059308 ONDANSETRON Inactive ORTHO TRI-CYCLEN (28) 0.18/0.215/0.25 MG-35 MCG TABS 1 daily ORTHO TRI-CYCLEN (28) 0.18/0.215/0.25 MG-35 MCG TABS 295384 NORGESTIM-ETH ESTRAD TRIPHASIC Inactive CLARITIN 10 MG TAB 1 tablet by mouth daily as needed for itchy r khari CLARITIN 10 MG TAB 003693 LORATADINE Inactive ORTHO TRI-CYCLEN (28) 0.18/0.215/0.25 MG-35 MCG TABS 1 daily ORTHO TRI-CYCLEN (28) 0.18/0.215/0.25 MG-35 MCG TABS 898879 NORGESTIM-ETH ESTRAD TRIPHASIC Inactive HYDROXYZINE HCL 25 MG TABS Take 1-2 tablets daily 2015 HYDROXYZINE HCL 25 MG TABS 503256 HYDROXYZINE HCL Inactive LORATADINE 10 MG TABS 1 tablet by mouth daily LORATADINE 10 MG TABS 093639 LORATADINE Inactive CEPHALEXIN 500 MG ORAL CAPS CEPHALEX IN 500 MG ORAL CAPS 524042 CEPHALEXIN Inactive PREDNISONE 20 MG TABS Take 2 daily for 3 days and then 1 herman ly for 3 days PREDNISONE 20 MG TABS 463307 PREDNISONE Inacti ve AMOXICILLIN 500 MG CAPS 2 po BID x 10 days AMOXICILLIN 500 MG CAPS 394567 AMOXICILLIN Inactive ZITHROMAX Z-CHACE 250 MG TABS 2 today, then 1 daily for 4 days 201 10/06/11 ZITHROMAX Z-CHACE 250 MG TABS 4158305 AZITHROMYCIN Inac tive AUGMENTIN 875-125 MG TAB 1 po BID x 10 days with food AUGMENTIN 875-125 MG TAB 212992 AMOXICILLIN-POT CLAVULANATE Inactiv e Advance Directives Directive [...] 18 yo)) Fluzone preservative free (>3 yrs.) [[id number]] Influenza, seasonal, injectable, preservative free MPSV4 (meningococcal polysaccharide vaccination) Menactra meningococcal polysaccharide vaccine (MPSV4) hepatitis A immunization #1 Havrix-Pedi hepa titis A vaccine, unspecified formulation Adacel (Tetanus, reduced Diphtheria, and acellular Per tussis Immunization) Adacel [[id number]] tetanus toxoid, reduced diph theria toxoid, and acellular pertussis vaccine, adsorbed influenza immunization (Flu Vax) has been administered 2 Historical influenza virus vaccine, unspecified formulation oral polio vaccine (OPV) #4 Historical case ovirus vaccine, unspecified formulation MMR (measles, mumps, rubella) virus immunization #2 Historical DPT immunization #5 Historical DPT immunization #4 Historical oral polio vaccine (OPV) #3 Historical case ovirus vaccine, unspecified formulation MMR (measles, mumps, rubella) virus immunization #1 Historical Hemophilus influenza B immunization #4 Historica l Haemophilus influenzae type b vaccine, conjugate unspecified formulation DPT immunization #3 Historical hepatitis B vaccine #3 Historical hepatitis B vaccine, unspecified formulation Hemophilus influenza B immunization #3 Historica l [...] Historical hep atitis B vaccine, unspecified formulation Hemophilus influenza B immunization #1 Historica l Haemophilus influenzae type b vaccine, conjugate unspecified formulation hepatitis B vaccine #1 given [...] (INCL ... - Hematology Blood type A hematocrit, blood 39.9 % 34.0-46.0 mean corpuscular volume, RBC 91.0 fL 78.0-98 .0 mean corpuscular hemoglobin, RBC 30.5 pg 25. 0-35.0 mean corpuscular hemoglobin concentration, RBC 33.5 G/DL % 31.0-36.0 red blood cell distribution width 14.4 % 11 .0-15.0 platelet count 210 THOUSAND/UL 10*3/mm3 776-735 5628/11/02 mean platelet volume 10.3 fL 7.5-11.5 leukocyte count, blood 7.5 THOUSAND/UL 10*3/mm3 4.5-13.0 erythrocyte (RBC) count 4.38 MILLION/UL 10*6/mm3 3.80-5. 10 hemoglobin, blood 13.4 g/dL 11.5-15.3 Lab Report: ABO GROUP & RH TYPE, [...] - Chemistry RBC, urine, dipstick Negative Negative protein, total urine random Negative mg/dL Negative TSH 2.68 m[iU]/mL 0.36-3.74 Lab Report: Thyroid Stimulating Hormone (L), UADIP W/MICRO, AUTO - Urinalysis glucose, urine, semiquantitative Negative Neg ative bilirubin, urine Negative Negative ketones, urine, by test strip Negative Negati ve urobilinogen, urine, semiquantitative (dipstick) 0.2 Normal leukocyte esterase, urine, by dipstick Negative Negative nitrite, urine, semiquantitative Negative Neg ative pH, urine, semiquantitative 6.5 5.0-8.5 specific gravity, urine <=1.005 1.000-1.030 appearance, urine Clear Clear urine color Yellow Colorless;Lightyellow;St raw;Yellow Office Visit: 4 wk OB - Urinalysis protein, urine, semiquantitative (dipstick) N glucose, urine, semiquantitative N nitrite, urine, semiquantitative N Encounters Code Encounter Date Provider Facility CPT-49529 Level 3 Est. Patient 15:21:38 SALES OPERATIONS SPECIALIST Rayna Pepper [facility] CPT-12414 Level 3 Est. Patient 15:35:51 SALES OPERATIONS SPECIALIST Ned Navarrete MD [facility]-83629 Level 2 Est. Patient 12:43:40 CDT Ned Navarrete MD [facility]-34234 Level 3 Est. Patient 14:38:48 CDT Toni duque [facility] CPT-68447 Level 3 Est. Patient 09:02:58 SALES OPERATIONS SPECIALIST George paulson MD [facility]-94772 Level 3 Est. Patient 17:42:32 CDT Ned Navarrete MD [facility]-71266 Level 3 Est. Patient 11:04:31 SALES OPERATIONS SPECIALIST Mariana Torrez [facility] [place]-19648 Level 4 Est. Patient 12:27:05 SALES OPERATIONS SPECIALIST Ned Navarrete MD [facility]-15119 Level 3 Est. Patient 11:31:58 SALES OPERATIONS SPECIALIST Ned Navarrete MD [facility]-09128 Level 3 Est. Patient 16:49:32 CDT Ned Navarrete MD [facility]-72147 Level 4 Est. Patient 14:11:59 SALES OPERATIONS SPECIALIST Saskia green MD PhD [facility]-27623 Level 3 Est. Patient 17:34:25 CDT Ned Navarrete MD [facility]-42243 Level 3 Est. Patient 17:34:19 CDT Ned Navarrete MD [facility]-50661 Level 3 Est. Patient 13:46:05 CDT Ned Navarrete MD [facility]-82382 Level 3 Est. Patient 16:55:47 SALES OPERATIONS SPECIALIST Ned Navarrete MD [facility]-57376 Level 2 Est. Patient 17:33:08 SALES OPERATIONS SPECIALIST Ned Navarrete MD [facility] CPT-36919 Level 3 Est. Patient 16:25:26 SALES OPERATIONS SPECIALIST Ned Navarrete MD [facility] Procedures Code Procedure Name Date Entry Date Standard Desc ription CPT-59308 Visit 17:47:08 CDT CPT-60864 OBGTT 1 - LAB USE ONLY 10:15:57 CDT CPT-70603 Venipuncture Draw Fee 10:15:57 CDT CPT-69988 Visit 15:07:16 SALES OPERATIONS SPECIALIST CPT-89078 Visit 16:49:41 SALES OPERATIONS SPECIALIST CPT-08718 [facility] OB limited - XRAY USE ONLY 16:38:01 CS T CPT-63541 [facility] comp > 14 weeks - XRAY USE ONLY 17:00:59 SALES OPERATIONS SPECIALIST CPT-29880 UA w micro - LAB USE ONLY 16:59:38 CDT 2015 CPT-74813 TSH - LAB USE ONLY 16:59:38 CDT CPT-86707 Venipuncture Draw Fee 16:59:38 CDT CPT-20397 Spec Collection and Handling Fee 14:01:24 C DT CPT-40157 Visit 14:01:24 CDT CPT-033 [facility] Med Screen 14:03:18 CDT CPT-033 [facility] Med Screen 11:04:57 CDT CPT-033 [facility] Med Screen 10:29:44 CDT CPT-14874 Administration 2+ single or combination vaccines inc oral 14:02:47 SALES OPERATIONS SPECIALIST CPT-48671 Administration single or combination vac cine inc oral 14:02:47 SALES OPERATIONS SPECIALIST CPT-64238 Hepatitis A ped/adol 2 dose schedule 14:02:47 SALES OPERATIONS SPECIALIST CPT-98363 Gardasil 14:02:47 SALES OPERATIONS SPECIALIST CPT-04364 Administration single or combination vac cine inc oral 11:40:38 SALES OPERATIONS SPECIALIST CPT-51569 Gardasil 11:40:38 SALES OPERATIONS SPECIALIST CPT-45995 Administration single or combination vac cine inc oral 09:45:00 CDT CPT-95519 Influenza Preservative Free split virus >age 3 09:45:00 CDT CPT-18906 Venipuncture Draw Fee 07:59:02 CDT
--- OUTSIDE RECORDS SUMMARY | 2019-10-10 20:23 | XMS REPORT | Clinical Summary ---
Author Author Admin, Son Chan Organization [facility] Address Unknown Phone Unavailable Allergies, Adverse Reactions, [...] noninfectious gastroenteritis and colitis Amenorrhea 626.0 Active eNd Navarrete MD Absence of menstruation Gastroenteritis Inactive [...] 1 herman ly for 3 days PREDNISONE 25367703906 Active Ned Navarrete MD Active CEPHALEXIN 500 MG ORAL CAPS CEPHALEXIN 08773606811 No Longer Active Ned Navarrete MD Active LATUDA 20 MG ORAL TABS LURASIDONE HCL 9336093 0230 Active Breanne Madl PHYSICAL DAMAGE APPRAISER Active LORATADINE 10 MG TABS 1 tablet by mouth daily L ORATADINE 90270947699 No Longer Active Breanne Madl PHYSICAL DAMAGE APPRAISER Active HYDROXYZINE HCL 25 MG TABS Take 1-2 tablets daily 2015 HYDROXYZINE HCL 28112665232 No Longer Active Breanne Madl PHYSICAL DAMAGE APPRAISER Active ORTHO TRI-CYCLEN (28) 0.18/0.215/0.25 MG-35 MCG TABS 1 daily NORGESTIM-ETH ESTRAD TRIPHASIC 43466628597 No Longer Active Breanne Madl PHYSICAL DAMAGE APPRAISER Active CLARITIN 10 MG TAB 1 tablet by mouth daily as needed for itchy r khari LORATADINE 80157010697 No Longer Active Ned Navarrete MD Active AUGMENTIN 875-125 MG TAB 1 po BID x 10 days with food AMOXICILLIN-POT CLAVULANATE 56706734348 No Longer Active Toni Washington DO Active ORTHO TRI-CYCLEN (28) 0.18/0.215/0.25 MG-35 MCG TABS 1 daily NORGESTIM-ETH ESTRAD TRIPHASIC 10242521643 No Longer Active Ned Navarrete MD Active ZOFRAN ODT 4 MG TBDP 1 po q6hr PRN Nausea ONDAN SETRON 98958412194 No Longer Active Ned Navarrete MD Active [facility] 3 MG TABS Take 1 tablet at bedtime. 2013 MELATONIN 02486743655 No Longer Active Ned Navarrete MD Activ e BIOTIN 1000 MCG TABS Take 2 tablets daily BIOTI N 54034233907 No Longer Active Ned Navarrete MD Active OMEPRAZOLE 20 MG CPDR 1 tablet by mouth daily O MEPRAZOLE 95275765171 No Longer Active Mariana Moses APRN Active LATUDA 80 MG TABS 1 tablet daily LURASIDONE HCL 67842147390 No Longer Active Mariana Moses APRN Active ZOVIRAX 400 MG TABS Take 1 tablet every 8 hours as needed 2 ACYCLOVIR 44131107003 No Longer Active Ned Navarrete MD Activ e ZITHROMAX Z-CHACE 250 MG TABS 2 today, then 1 daily for 4 days 201 10/06/11 AZITHROMYCIN 46923837845 No Longer Active Ned Navarrete MD Active TOPAMAX 100 MG TABS 1 tablet daily TOPIRAMATE 54 644056599 No Longer Active Ned Navarrete MD Active AMOXICILLIN 500 MG CAPS 2 po BID x 10 days AMOX ICILLIN 42027373243 No Longer Active Saskia Simon MD PhD Active NAPROSYN 375 MG TAB 1 twice a day as needed for chest pain 04/01 NAPROXEN 99359237163 No Longer Active Saskia Simon MD PhD Active HYDROCORTISONE 2.5 % EXT CREA Apply three times a day to aff ected area HYDROCORTISONE 66389479638 No Longer Active Ned Navarrete MD Active TOPIRAMATE 50 MG TABS 1 QD TOPIRAMATE 53991473342 No Longer Active Ned Navarrete MD Active FANAPT 6 MG TABS 1 BID ILOPERIDONE 00730509469 No L onger Active Ned Navarrete MD Active CIPROFLOXACIN HCL 0.3 % SOLN 1 drop in right eye every 2 hours for 2 days, then 1 drop four times a day CIPROFLOXACIN HCL 47691642850 No Longer Active Ned Navarrete MD Active LORATADINE 10 MG TABS 1 tablet by mouth daily L ORATADINE 64919611004 No Longer Active Ned Navarrete MD Active RANITIDINE HCL 150 MG CAPS 1 twice a day RANITI DINE HCL 81557865722 No Longer Active Ned Navarrete MD Active RANITIDINE HCL 150 MG CAPS 1 twice a day RANITIDINE HCL 150 MG CAPS 619941 RANITIDINE HCL Inactive LORATADINE 10 MG TABS 1 tablet by mouth daily LORATADINE 10 MG TABS 186268 LORATADINE Inactive CIPROFLOXACIN HCL 0.3 % SOLN 1 drop in right eye every 2 hours for 2 days, then 1 drop four times a day CIPROFLOXACIN HCL 0.3 % SOLN 723729 CIPROFLOXACIN HCL Inactive FANAPT 6 MG TABS 1 BID FANAPT 6 MG TABS ILO PERIDONE Inactive TOPIRAMATE 50 MG TABS 1 QD TOPIRAMATE 50 MG TABS 1 25617 TOPIRAMATE Inactive HYDROCORTISONE 2.5 % EXT CREA Apply three times a day to aff ected area HYDROCORTISONE 2.5 % EXT CREA 116889 HYDROCORTIS ONE Inactive NAPROSYN 375 MG TAB 1 twice a day as needed for chest pain 04/01 NAPROSYN 375 MG TAB NAPROXEN Inactive TOPAMAX 100 MG TABS 1 tablet daily TOPAMAX 100 MG TABS 565507 TOPIRAMATE Inactive ZOVIRAX 400 MG TABS Take 1 tablet every 8 hours as needed 2 ZOVIRAX 400 MG TABS 550170 ACYCLOVIR Inactive LATUDA 80 MG TABS 1 tablet daily LATUDA 80 MG TA BS LURASIDONE HCL Inactive OMEPRAZOLE 20 MG CPDR 1 tablet by mouth daily OMEPRAZOLE 20 MG CPDR 647413 OMEPRAZOLE Inactive BIOTIN 1000 MCG TABS Take 2 tablets daily BIOTIN 1000 MCG TABS 181272 BIOTIN Inactive [facility] MEL[facility] 3 MG TABS Take 1 tablet at bedtime. 2013 [facility] MEL[facility] 3 MG TABS 804974 MELATONIN Inactive ZOFRAN ODT 4 MG TBDP 1 po q6hr PRN Nausea ZOFRAN ODT 4 MG TBDP 960019 ONDANSETRON Inactive ORTHO TRI-CYCLEN (28) 0.18/0.215/0.25 MG-35 MCG TABS 1 daily ORTHO TRI-CYCLEN (28) 0.18/0.215/0.25 MG-35 MCG TABS 129672 NORGESTIM-ETH ESTRAD TRIPHASIC Inactive CLARITIN 10 MG TAB 1 tablet by mouth daily as needed for itchy r khari CLARITIN 10 MG TAB 316967 LORATADINE Inactive ORTHO TRI-CYCLEN (28) 0.18/0.215/0.25 MG-35 MCG TABS 1 daily ORTHO TRI-CYCLEN (28) 0.18/0.215/0.25 MG-35 MCG TABS 947431 NORGESTIM-ETH ESTRAD TRIPHASIC Inactive HYDROXYZINE HCL 25 MG TABS Take 1-2 tablets daily 2015 HYDROXYZINE HCL 25 MG TABS 561845 HYDROXYZINE HCL Inactive LORATADINE 10 MG TABS 1 tablet by mouth daily LORATADINE 10 MG TABS 797228 LORATADINE Inactive CEPHALEXIN 500 MG ORAL CAPS CEPHALEX IN 500 MG ORAL CAPS 573088 CEPHALEXIN Inactive AMOXICILLIN 500 MG CAPS 2 po BID x 10 days AMOXICILLIN 500 MG CAPS 229737 AMOXICILLIN Inactive ZITHROMAX Z-CHACE 250 MG TABS 2 today, then 1 daily for 4 days 201 10/06/11 ZITHROMAX Z-CHACE 250 MG TABS 8620321 AZITHROMYCIN Inac tive AUGMENTIN 875-125 MG TAB 1 po BID x 10 days with food AUGMENTIN 875-125 MG TAB 079862 AMOXICILLIN-POT CLAVULANATE Inactiv e Advance Directives Directive [...] 18 yo)) Fluzone preservative free (>3 yrs.) [[id number]] Influenza, seasonal, injectable, preservative free MPSV4 (meningococcal polysaccharide vaccination) Menactra meningococcal polysaccharide vaccine (MPSV4) hepatitis A immunization #1 Havrix-Pedi hepa titis A vaccine, unspecified formulation Adacel (Tetanus, reduced Diphtheria, and acellular Per tussis Immunization) Adacel [[id number]] tetanus toxoid, reduced diph theria toxoid, and [...] 11 .0-15.0 platelet count 210 THOUSAND/UL 10*3/mm3 923-696 6234/11/02 mean platelet volume 10.3 fL 7.5-11.5 Lab [...] ative Encounters Code Encounter Date Provider Facility CPT-12669 Level 3 Est. Patient 15:35:51 SUGAR SAMPLER Ned Navarrete MD [facility] CPT-58363 Level 2 Est. Patient 12:43:40 CDT Ned Navarrete MD [facility]-08908 Level 3 Est. Patient 14:38:48 CDT Toni duque DO [facility]-75611 Level 3 Est. Patient 09:02:58 SUGAR SAMPLER George paulson MD [facility] CPT-20292 Level 3 Est. Patient 17:42:32 CDT Ned Navarrete MD [facility]-66903 Level 3 Est. Patient 11:04:31 SUGAR SAMPLER Mariana Torrez APRN [facility] CPT-19538 Level 4 Est. Patient 12:27:05 SUGAR SAMPLER Ned Navarrete MD [facility]-33131 Level 3 Est. Patient 11:31:58 SUGAR SAMPLER Ned Navarrete MD [facility] CPT-89479 Level 3 Est. Patient 16:49:32 CDT Ned Navarrete MD [facility]-48689 Level 4 Est. Patient 14:11:59 SUGAR SAMPLER Saskia green MD PhD [facility] CPT-39145 Level 3 Est. Patient 17:34:25 CDT Ned Navarrete MD [facility]-08286 Level 3 Est. Patient 17:34:19 CDT Ned Navarrete MD [facility] CPT-79363 Level 3 Est. Patient 13:46:05 CDT Ned Navarrete MD [facility] CPT-97977 Level 3 Est. Patient 16:55:47 SUGAR SAMPLER Ned Navarrete MD [facility] CPT-64710 Level 2 Est. Patient 17:33:08 SUGAR SAMPLER Ned Navarrete MD [facility] CPT-68478 Level 3 Est. Patient 16:25:26 SUGAR SAMPLER Ned Navarrete MD [facility] Procedures Code Procedure Name Date Entry Date Standard Desc ription CPT-50698 Visit 16:49:41 SUGAR SAMPLER CPT-19358 Sono OB limited - XRAY USE ONLY 16:38:01 CS T CPT-92571 Sono OB comp > 14 weeks - XRAY USE ONLY 17:00:59 SUGAR SAMPLER CPT-04190 UA w micro - LAB USE ONLY 16:59:38 CDT 2015 CPT-53060 TSH - LAB USE ONLY 16:59:38 CDT CPT-27568 Venipuncture Draw Fee 16:59:38 CDT CPT-19159 Spec Collection and Handling Fee 14:01:24 C DT CPT-33233 Visit 14:01:24 CDT CPT-033 KB Med Screen 14:03:18 CDT CPT-033 KB Med Screen 11:04:57 CDT CPT-033 KB Med Screen 10:29:44 CDT CPT-25596 Administration 2+ single or combination vaccines inc oral 14:02:47 SUGAR SAMPLER CPT-07612 Administration single or combination vac cine inc oral 14:02:47 SUGAR SAMPLER CPT-95593 Hepatitis A ped/adol 2 dose schedule 14:02:47 SUGAR SAMPLER CPT-72046 Gardasil 14:02:47 SUGAR SAMPLER CPT-87713 Administration single or combination vac cine inc oral 11:40:38 SUGAR SAMPLER CPT-07038 Gardasil 11:40:38 SUGAR SAMPLER CPT-02379 Administration single or combination vac cine inc oral 09:45:00 CDT CPT-50161 Influenza Preservative Free split virus >age 3 09:45:00 CDT CPT-47621 Venipuncture Draw Fee 07:59:02 CDT
--- OUTSIDE RECORDS SUMMARY | 2019-10-10 20:23 | XMS REPORT | Clinical Summary ---
Author Author Admin, Son Chan Organization [facility] Address Unknown Phone Unavailable Allergies, Adverse Reactions, [...] condition or complication Methamphetamine abuse 305.70 Inactive Jennif er Hayes LRT Amphetamine or related acting [...] un specified site V22.2 Active Maia Wood LPN state, incidental WEIGHT GAIN ICD-783.1 Inactive Ned Navarrete MD [...] Hayes LRT Methamphetamine abuse ICD-305.70 Inactive Andreea vicentejennie Hayes LRT 20 weeks gestation of ICD-V28.9 Inac tive Missy Hayes LRT 22 weeks gestation of ICD-V28.9 Inac tialexadnra Hayes LRT Medication List Medication Instructions Start Date Stop Date Generic Name NDC Status Provider Patient Instruction PREDNISONE 20 MG TABS Take 2 daily for 3 days and then 1 herman ly for 3 days PREDNISONE 71782362583 No Longer Active Ned pérez MD Active CEPHALEXIN 500 MG ORAL CAPS CEPHALEXIN 81218915090 No Longer Active Ned Navarrete MD Active LATUDA 20 MG ORAL TABS LURASIDONE HCL 8694484 0230 Active Breanne Madl TOP FRAME FITTER Active LORATADINE 10 MG TABS 1 tablet by mouth daily L ORATADINE 45615684796 No Longer Active Breanne Madl TOP FRAME FITTER Active HYDROXYZINE HCL 25 MG TABS Take 1-2 tablets daily 2015 HYDROXYZINE HCL 59172282037 No Longer Active Breanne Madl TOP FRAME FITTER Active ORTHO TRI-CYCLEN (28) 0.18/0.215/0.25 MG-35 MCG TABS 1 daily NORGESTIM-ETH ESTRAD TRIPHASIC 20406855467 No Longer Active Breanne Madl TOP FRAME FITTER Active CLARITIN 10 MG TAB 1 tablet by mouth daily as needed for itchy r khari LORATADINE 88660874830 No Longer Active Ned Navarrete MD Active AUGMENTIN 875-125 MG TAB 1 po BID x 10 days with food AMOXICILLIN-POT CLAVULANATE 90608729491 No Longer Active Toni Washington DO Active ORTHO TRI-CYCLEN (28) 0.18/0.215/0.25 MG-35 MCG TABS 1 daily NORGESTIM-ETH ESTRAD TRIPHASIC 34682257445 No Longer Active Ned Navarrete MD Active ZOFRAN ODT 4 MG TBDP 1 po q6hr PRN Nausea ONDAN SETRON 78734302049 No Longer Active Ned Navarrete MD Active [facility] MEL[facility] 3 MG TABS Take 1 tablet at bedtime. 2013 MELATONIN 42630101857 No Longer Active Ned Navarrete MD Activ e BIOTIN 1000 MCG TABS Take 2 tablets daily BIOTI N 92324976845 No Longer Active Ned Navarrete MD Active OMEPRAZOLE 20 MG CPDR 1 tablet by mouth daily O MEPRAZOLE 75190515947 No Longer Active Mariana Moses APRN Active LATUDA 80 MG TABS 1 tablet daily LURASIDONE HCL 19111102856 No Longer Active Mariana Moses APRN Active ZOVIRAX 400 MG TABS Take 1 tablet every 8 hours as needed 2 ACYCLOVIR 37140924514 No Longer Active Ned Navarrete MD Activ e ZITHROMAX Z-CHACE 250 MG TABS 2 today, then 1 daily for 4 days 201 10/06/11 AZITHROMYCIN 35933657027 No Longer Active Ned Navarrete MD Active TOPAMAX 100 MG TABS 1 tablet daily TOPIRAMATE 54 381427499 No Longer Active Ned Navarrete MD Active AMOXICILLIN 500 MG CAPS 2 po BID x 10 days AMOX ICILLIN 33603223363 No Longer Active Saskia Simon MD PhD Active NAPROSYN 375 MG TAB 1 twice a day as needed for chest pain 04/01 NAPROXEN 05806258001 No Longer Active Saskia Simon MD PhD Active HYDROCORTISONE 2.5 % EXT CREA Apply three times a day to aff ected area HYDROCORTISONE 33123440605 No Longer Active Ned Navarrete MD Active TOPIRAMATE 50 MG TABS 1 QD TOPIRAMATE 88581189463 No Longer Active Ned Navarrete MD Active FANAPT 6 MG TABS 1 BID ILOPERIDONE 39470440500 No L onger Active Ned Navarrete MD Active CIPROFLOXACIN HCL 0.3 % SOLN 1 drop in right eye every 2 hours for 2 days, then 1 drop four times a day CIPROFLOXACIN HCL 31082886418 No Longer Active Ned Navarrete MD Active LORATADINE 10 MG TABS 1 tablet by mouth daily L ORATADINE 46811411144 No Longer Active Ned Navarrete MD Active RANITIDINE HCL 150 MG CAPS 1 twice a day RANITI DINE HCL 01692344215 No Longer Active Ned Navarrete MD Active RANITIDINE HCL 150 MG CAPS 1 twice a day RANITIDINE HCL 150 MG CAPS 175619 RANITIDINE HCL Inactive LORATADINE 10 MG TABS 1 tablet by mouth daily LORATADINE 10 MG TABS 630507 LORATADINE Inactive CIPROFLOXACIN HCL 0.3 % SOLN 1 drop in right eye every 2 hours for 2 days, then 1 drop four times a day CIPROFLOXACIN HCL 0.3 % SOLN 093243 CIPROFLOXACIN HCL Inactive FANAPT 6 MG TABS 1 BID FANAPT 6 MG TABS ILO PERIDONE Inactive TOPIRAMATE 50 MG TABS 1 QD TOPIRAMATE 50 MG TABS 1 97207 TOPIRAMATE Inactive HYDROCORTISONE 2.5 % EXT CREA Apply three times a day to aff ected area HYDROCORTISONE 2.5 % EXT CREA 641840 HYDROCORTIS ONE Inactive NAPROSYN 375 MG TAB 1 twice a day as needed for chest pain 04/01 NAPROSYN 375 MG TAB NAPROXEN Inactive TOPAMAX 100 MG TABS 1 tablet daily TOPAMAX 100 MG TABS 587894 TOPIRAMATE Inactive ZOVIRAX 400 MG TABS Take 1 tablet every 8 hours as needed 2 ZOVIRAX 400 MG TABS 066559 ACYCLOVIR Inactive LATUDA 80 MG TABS 1 tablet daily LATUDA 80 MG TA BS LURASIDONE HCL Inactive OMEPRAZOLE 20 MG CPDR 1 tablet by mouth daily OMEPRAZOLE 20 MG CPDR 833788 OMEPRAZOLE Inactive BIOTIN 1000 MCG TABS Take 2 tablets daily BIOTIN 1000 MCG TABS 756115 BIOTIN Inactive [facility] M[facility] 3 MG TABS Take 1 tablet at bedtime. 2013 [facility] M[facility] 3 MG TABS 927801 MELATONIN Inactive ZOFRAN ODT 4 MG TBDP 1 po q6hr PRN Nausea ZOFRAN ODT 4 MG TBDP 728406 ONDANSETRON Inactive ORTHO TRI-CYCLEN (28) 0.18/0.215/0.25 MG-35 MCG TABS 1 daily ORTHO TRI-CYCLEN (28) 0.18/0.215/0.25 MG-35 MCG TABS 198832 NORGESTIM-ETH ESTRAD TRIPHASIC Inactive CLARITIN 10 MG TAB 1 tablet by mouth daily as needed for itchy r khari CLARITIN 10 MG TAB 740128 LORATADINE Inactive ORTHO TRI-CYCLEN (28) 0.18/0.215/0.25 MG-35 MCG TABS 1 daily ORTHO TRI-CYCLEN (28) 0.18/0.215/0.25 MG-35 MCG TABS 648372 NORGESTIM-ETH ESTRAD TRIPHASIC Inactive HYDROXYZINE HCL 25 MG TABS Take 1-2 tablets daily 2015 HYDROXYZINE HCL 25 MG TABS 006241 HYDROXYZINE HCL Inactive LORATADINE 10 MG TABS 1 tablet by mouth daily LORATADINE 10 MG TABS 484662 LORATADINE Inactive CEPHALEXIN 500 MG ORAL CAPS CEPHALEX IN 500 MG ORAL CAPS 419781 CEPHALEXIN Inactive PREDNISONE 20 MG TABS Take 2 daily for 3 days and then 1 herman ly for 3 days PREDNISONE 20 MG TABS 819215 PREDNISONE Inacti ve AMOXICILLIN 500 MG CAPS 2 po BID x 10 days AMOXICILLIN 500 MG CAPS 115486 AMOXICILLIN Inactive ZITHROMAX Z-CHACE 250 MG TABS 2 today, then 1 daily for 4 days 201 10/06/11 ZITHROMAX Z-CHACE 250 MG TABS 1599940 AZITHROMYCIN Inac tive AUGMENTIN 875-125 MG TAB 1 po BID x 10 days with food AUGMENTIN 875-125 MG TAB 752223 AMOXICILLIN-POT CLAVULANATE Inactiv e Advance Directives Directive [...] 18 yo)) Fluzone preservative free (>3 yrs.) [[id number]] Influenza, seasonal, injectable, preservative free MPSV4 (meningococcal polysaccharide vaccination) Menactra meningococcal polysaccharide vaccine (MPSV4) hepatitis A immunization #1 Havrix-Pedi hepa titis A vaccine, unspecified formulation Adacel (Tetanus, reduced Diphtheria, and acellular Per tussis Immunization) Adacel [[id number]] tetanus toxoid, reduced diph theria toxoid, and [...] 11 .0-15.0 platelet count 210 THOUSAND/UL 10*3/mm3 371-532 3635/11/02 mean platelet volume 10.3 fL 7.5-11.5 Lab [...] N Encounters Code Encounter Date Provider Facility CPT-36386 Level 3 Est. Patient 15:21:38 CAT TENDER Rayna Pepper [facility] [place][note 2] CPT-25063 Level 3 Est. Patient 15:35:51 CAT TENDER Ned Navarrete MD [facility] CPT-73795 Level 2 Est. Patient 12:43:40 CDT Ned Navarrete MD [facility] CPT-82158 Level 3 Est. Patient 14:38:48 CDT Toni duque DO [facility] CPT-80167 Level 3 Est. Patient 09:02:58 CAT TENDER George paulson MD [facility] CPT-43734 Level 3 Est. Patient 17:42:32 CDT Ned Navarrete MD [facility] CPT-84616 Level 3 Est. Patient 11:04:31 CAT TENDER Mariana Torrez [facility] CPT-43866 Level 4 Est. Patient 12:27:05 CAT TENDER Ned Navarrete MD [facility] CPT-32949 Level 3 Est. Patient 11:31:58 CAT TENDER Ned Navarrete MD [facility] CPT-59997 Level 3 Est. Patient 16:49:32 CDT Ned Navarrete MD [facility] CPT-64347 Level 4 Est. Patient 14:11:59 CAT TENDER Saskia green MD PhD [facility] CPT-39793 Level 3 Est. Patient 17:34:25 CDT Ned Navarrete MD [facility] CPT-42434 Level 3 Est. Patient 17:34:19 CDT Ned Navarrete MD [facility] CPT-26146 Level 3 Est. Patient 13:46:05 CDT Ned Navarrete MD [facility] CPT-16504 Level 3 Est. Patient 16:55:47 CAT TENDER Ned Navarrete MD [facility] CPT-41593 Level 2 Est. Patient 17:33:08 CAT TENDER Ned Navarrete MD [facility] CPT-97234 Level 3 Est. Patient 16:25:26 CAT TENDER Ned Navarrete MD [facility] Procedures Code Procedure Name Date Entry Date Standard Desc ription CPT-25769 Visit 15:57:29 CDT CPT-00756 First Vx - Ix admin via ID I M or jet injects without counseling by physician 15:53:15 CDT CPT-43757 Boostrix Intramuscular Suspension 5-2.5-18.5 201 01/28/11 15:53:14 CDT CPT-66950 Tdap 7yrs or > 14:41:06 CDT CPT-65219 Visit 17:47:08 CDT CPT-95771 OBGTT 1 - LAB USE ONLY 10:15:57 CDT CPT-83475 Venipuncture Draw Fee 10:15:57 CDT CPT-87611 Visit 15:07:16 CAT TENDER CPT-16651 Visit 16:49:41 CAT TENDER CPT-37995 Sono OB limited - XRAY USE ONLY 16:38:01 CS T CPT-62576 Sono OB comp > 14 weeks - XRAY USE ONLY 17:00:59 CAT TENDER CPT-65410 UA w micro - LAB USE ONLY 16:59:38 CDT 2015 CPT-32270 TSH - LAB USE ONLY 16:59:38 CDT CPT-89600 Venipuncture Draw Fee 16:59:38 CDT CPT-44347 Spec Collection and Handling Fee 14:01:24 C DT CPT-72510 Visit 14:01:24 CDT CPT-033 KB Med Screen 14:03:18 CDT CPT-033 KB Med Screen 11:04:57 CDT CPT-033 KB Med Screen 10:29:44 CDT CPT-29005 Administration 2+ single or combination vaccines inc oral 14:02:47 CAT TENDER CPT-81425 Administration single or combination vac cine inc oral 14:02:47 CAT TENDER CPT-21944 Hepatitis A ped/adol 2 dose schedule 14:02:47 CAT TENDER CPT-07815 Gardasil 14:02:47 CAT TENDER CPT-15930 Administration single or combination vac cine inc oral 11:40:38 CAT TENDER CPT-01119 Gardasil 11:40:38 CAT TENDER CPT-99655 Administration single or combination vac cine inc oral 09:45:00 CDT CPT-59463 Influenza Preservative Free split virus >age 3 09:45:00 CDT CPT-20594 Venipuncture Draw Fee 07:59:02 CDT
--- OUTSIDE RECORDS SUMMARY | 2019-10-10 20:24 | XMS REPORT | Clinical Summary ---
Author Author Admin, Son Chan Organization [facility] Address Unknown Phone Unavailable Allergies, Adverse [...] LATUDA 20 MG ORAL TABS LURASIDONE HCL 1376129 0230 Active Breanne Madl FOUNDATION RELATIONS MANAGER Active CEPHALEXIN 500 MG ORAL CAPS CEPHALEXIN 559848 17668 Active Breanne Madl FOUNDATION RELATIONS MANAGER Active LORATADINE 10 MG TABS 1 tablet by mouth daily L ORATADINE 16363702741 No Longer Active Breanne Madl FOUNDATION RELATIONS MANAGER Active HYDROXYZINE HCL 25 MG TABS Take 1-2 tablets daily 2015 HYDROXYZINE HCL 97356464035 No Longer Active Breanne Madl FOUNDATION RELATIONS MANAGER Active ORTHO TRI-CYCLEN (28) 0.18/0.215/0.25 MG-35 MCG TABS 1 daily NORGESTIM-ETH ESTRAD TRIPHASIC 47272945348 No Longer Active Breanne Madl FOUNDATION RELATIONS MANAGER Active CLARITIN 10 MG TAB 1 tablet by mouth daily as needed for itchy r khari LORATADINE 20733936713 No Longer Active Ned Navarrete MD Active AUGMENTIN 875-125 MG TAB 1 po BID x 10 days with food AMOXICILLIN-POT CLAVULANATE 19898661096 No Longer Active Toni Washington DO Active ORTHO TRI-CYCLEN (28) 0.18/0.215/0.25 MG-35 MCG TABS 1 daily NORGESTIM-ETH ESTRAD TRIPHASIC 61092623409 No Longer Active Ned Navarrete MD Active ZOFRAN ODT 4 MG TBDP 1 po q6hr PRN Nausea ONDAN SETRON 86985402931 No Longer Active Ned Navarrete MD Active [facility] MEL[facility] 3 MG TABS Take 1 tablet at bedtime. 2013 MELATONIN 27911445409 No Longer Active Ned Navarrete MD Activ e BIOTIN 1000 MCG TABS Take 2 tablets daily BIOTI N 99103498879 No Longer Active Ned Navarrete MD Active OMEPRAZOLE 20 MG CPDR 1 tablet by mouth daily O MEPRAZOLE 52957177357 No Longer Active Mariana Moses APRN Active LATUDA 80 MG TABS 1 tablet daily LURASIDONE HCL 24899796777 No Longer Active Mariana Moses APRN Active ZOVIRAX 400 MG TABS Take 1 tablet every 8 hours as needed 2 ACYCLOVIR 74376712766 No Longer Active Ned Navarrete MD Activ e ZITHROMAX Z-CHACE 250 MG TABS 2 today, then 1 daily for 4 days 201 10/06/11 AZITHROMYCIN 06069369787 No Longer Active Ned Navarrete MD Active TOPAMAX 100 MG TABS 1 tablet daily TOPIRAMATE 54 345971744 No Longer Active Ned Navarrete MD Active AMOXICILLIN 500 MG CAPS 2 po BID x 10 days AMOX ICILLIN 28687550004 No Longer Active Saskia Simon MD PhD Active NAPROSYN 375 MG TAB 1 twice a day as needed for chest pain 04/01 NAPROXEN 38116825984 No Longer Active Saskia Simon MD PhD Active HYDROCORTISONE 2.5 % EXT CREA Apply three times a day to aff ected area HYDROCORTISONE 75430695371 No Longer Active Ned Navarrete MD Active TOPIRAMATE 50 MG TABS 1 QD TOPIRAMATE 56357758632 No Longer Active Ned Navarrete MD Active FANAPT 6 MG TABS 1 BID ILOPERIDONE 90421336439 No L onger Active Ned Navarrete MD Active CIPROFLOXACIN HCL 0.3 % SOLN 1 drop in right eye every 2 hours for 2 days, then 1 drop four times a day CIPROFLOXACIN HCL 76318412590 No Longer Active Ned Navarrete MD Active LORATADINE 10 MG TABS 1 tablet by mouth daily L ORATADINE 09720327073 No Longer Active Ned Navarrete MD Active RANITIDINE HCL 150 MG CAPS 1 twice a day RANITI DINE HCL 10936201974 No Longer Active Ned Navarrete MD Active RANITIDINE HCL 150 MG CAPS 1 twice a day RANITIDINE HCL 150 MG CAPS 985211 RANITIDINE HCL Inactive LORATADINE 10 MG TABS 1 tablet by mouth daily LORATADINE 10 MG TABS 292498 LORATADINE Inactive CIPROFLOXACIN HCL 0.3 % SOLN 1 drop in right eye every 2 hours for 2 days, then 1 drop four times a day CIPROFLOXACIN HCL 0.3 % SOLN 919620 CIPROFLOXACIN HCL Inactive FANAPT 6 MG TABS 1 BID FANAPT 6 MG TABS ILO PERIDONE Inactive TOPIRAMATE 50 MG TABS 1 QD TOPIRAMATE 50 MG TABS 1 47011 TOPIRAMATE Inactive HYDROCORTISONE 2.5 % EXT CREA Apply three times a day to aff ected area HYDROCORTISONE 2.5 % EXT CREA 774645 HYDROCORTIS ONE Inactive NAPROSYN 375 MG TAB 1 twice a day as needed for chest pain 04/01 NAPROSYN 375 MG TAB NAPROXEN Inactive TOPAMAX 100 MG TABS 1 tablet daily TOPAMAX 100 MG TABS 728450 TOPIRAMATE Inactive ZOVIRAX 400 MG TABS Take 1 tablet every 8 hours as needed ZOVIRAX 400 MG TABS 101085 ACYCLOVIR Inactive LATUDA 80 MG TABS 1 tablet daily LATUDA 80 MG TA BS LURASIDONE HCL Inactive OMEPRAZOLE 20 MG CPDR 1 tablet by mouth daily OMEPRAZOLE 20 MG CPDR 136073 OMEPRAZOLE Inactive BIOTIN 1000 MCG TABS Take 2 tablets daily BIOTIN 1000 MCG TABS 748204 BIOTIN Inactive [facility] MEL[facility] 3 MG TABS Take 1 tablet at bedtime. 2013 [facility] MEL[facility] 3 MG TABS 187063 MELATONIN Inactive ZOFRAN ODT 4 MG TBDP 1 po q6hr PRN Nausea ZOFRAN ODT 4 MG TBDP 386581 ONDANSETRON Inactive ORTHO TRI-CYCLEN (28) 0.18/0.215/0.25 MG-35 MCG TABS 1 daily ORTHO TRI-CYCLEN (28) 0.18/0.215/0.25 MG-35 MCG TABS 482768 NORGESTIM-ETH ESTRAD TRIPHASIC Inactive CLARITIN 10 MG TAB 1 tablet by mouth daily as needed for itchy r khari CLARITIN 10 MG TAB 488072 LORATADINE Inactive ORTHO TRI-CYCLEN (28) 0.18/0.215/0.25 MG-35 MCG TABS 1 daily ORTHO TRI-CYCLEN (28) 0.18/0.215/0.25 MG-35 MCG TABS 498848 NORGESTIM-ETH ESTRAD TRIPHASIC Inactive HYDROXYZINE HCL 25 MG TABS Take 1-2 tablets daily 2015 HYDROXYZINE HCL 25 MG TABS 711539 HYDROXYZINE HCL Inactive LORATADINE 10 MG TABS 1 tablet by mouth daily LORATADINE 10 MG TABS 394220 LORATADINE Inactive AMOXICILLIN 500 MG CAPS 2 po BID x 10 days AMOXICILLIN 500 MG CAPS 629835 AMOXICILLIN Inactive ZITHROMAX Z-CHACE 250 MG TABS 2 today, then 1 daily for 4 days 201 10/06/11 ZITHROMAX Z-CHACE 250 MG TABS 2250815 AZITHROMYCIN Inac tive AUGMENTIN 875-125 MG TAB 1 po BID x 10 days with food AUGMENTIN 875-125 MG TAB 668147 AMOXICILLIN-POT CLAVULANATE Inactiv e Advance Directives Directive [...] 18 yo)) Fluzone preservative free (>3 yrs.) [[id number]] Influenza, seasonal, injectable, preservative free MPSV4 (meningococcal polysaccharide vaccination) Menactra meningococcal polysaccharide vaccine (MPSV4) hepatitis A immunization #1 Havrix-Pedi hepa titis A vaccine, unspecified formulation Adacel (Tetanus, reduced Diphtheria, and acellular Per tussis Immunization) Adacel [[id number]] tetanus toxoid, reduced diph theria toxoid, and [...] 11 .0-15.0 platelet count 210 THOUSAND/UL 10*3/mm3 969-639 1250/11/02 mean platelet volume 10.3 fL 7.5-11.5 Lab [...] ative Encounters Code Encounter Date Provider Facility CPT-10606 Level 2 Est. Patient 12:43:40 CDT Ned Navarrete MD [facility] [place]-55666 Level 3 Est. Patient 14:38:48 CDT Toni duque DO [facility] CPT-18017 Level 3 Est. Patient 09:02:58 SECURITY SYSTEMS SPECIALIST George paulson MD [facility]-66547 Level 3 Est. Patient 17:42:32 CDT Ned Navarrete MD [facility]-61304 Level 3 Est. Patient 11:04:31 SECURITY SYSTEMS SPECIALIST Mariana Torrez APRN [facility] CPT-17419 Level 4 Est. Patient 12:27:05 SECURITY SYSTEMS SPECIALIST Ned Navarrete MD [facility] CPT-76452 Level 3 Est. Patient 11:31:58 SECURITY SYSTEMS SPECIALIST Ned Navarrete MD [facility] CPT-12719 Level 3 Est. Patient 16:49:32 CDT Ned Navarrete MD [facility] CPT-73598 Level 4 Est. Patient 14:11:59 SECURITY SYSTEMS SPECIALIST Saskia green MD PhD [facility] CPT-32623 Level 3 Est. Patient 17:34:25 CDT Ned Navarrete MD [facility]-45373 Level 3 Est. Patient 17:34:19 CDT Ned Navarrete MD [facility]-05753 Level 3 Est. Patient 13:46:05 CDT Ned Navarrete MD [facility]-36016 Level 3 Est. Patient 16:55:47 SECURITY SYSTEMS SPECIALIST Ned Navarrete MD [facility] CPT-66916 Level 2 Est. Patient 17:33:08 SECURITY SYSTEMS SPECIALIST Ned Navarrete MD [facility] CPT-19588 Level 3 Est. Patient 16:25:26 SECURITY SYSTEMS SPECIALIST Ned Navarrete MD [facility] Procedures Code Procedure Name Date Entry Date Standard Desc ription CPT-82190 UA w micro - LAB USE ONLY 16:59:38 CDT 2015 CPT-64605 TSH - LAB USE ONLY 16:59:38 CDT CPT-24879 Venipuncture Draw Fee 16:59:38 CDT CPT-25023 Spec Collection and Handling Fee 14:01:24 C DT CPT-00347 Visit 14:01:24 CDT CPT-033 KB Med Screen 14:03:18 CDT CPT-033 KB Med Screen 11:04:57 CDT CPT-033 KB Med Screen 10:29:44 CDT CPT-55501 Administration 2+ single or combination vaccines inc oral 14:02:47 SECURITY SYSTEMS SPECIALIST CPT-22825 Administration single or combination vac cine inc oral 14:02:47 SECURITY SYSTEMS SPECIALIST CPT-89300 Hepatitis A ped/adol 2 dose schedule 14:02:47 SECURITY SYSTEMS SPECIALIST CPT-34968 Gardasil 14:02:47 SECURITY SYSTEMS SPECIALIST CPT-50483 Administration single or combination vac cine inc oral 11:40:38 SECURITY SYSTEMS SPECIALIST CPT-61266 Gardasil 11:40:38 SECURITY SYSTEMS SPECIALIST CPT-38036 Administration single or combination vac cine inc oral 09:45:00 CDT CPT-86489 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
--- OUTSIDE RECORDS SUMMARY | 2019-10-10 20:24 | XMS REPORT | Clinical Summary ---
Author Author Admin, Son Rodriguez [facility] Address Unknown Phone Unavailable Allergies, [...] unspecified use 20 weeks gestation of V28.9 Active 2016 Missy PINEDA Encounter for unspecified scre [...] LATUDA 20 MG ORAL TABS LURASIDONE HCL 7401753 0230 Active Breanne Madl TEMPERING KILN TENDER Active CEPHALEXIN 500 MG ORAL CAPS CEPHALEXIN 275252 90931 Active Breanne Madl TEMPERING KILN TENDER Active LORATADINE 10 MG TABS 1 tablet by mouth daily L ORATADINE 12630679270 No Longer Active Breanne Madl TEMPERING KILN TENDER Active HYDROXYZINE HCL 25 MG TABS Take 1-2 tablets daily 2015 HYDROXYZINE HCL 66716307855 No Longer Active Breanne Madl TEMPERING KILN TENDER Active ORTHO TRI-CYCLEN (28) 0.18/0.215/0.25 MG-35 MCG TABS 1 daily NORGESTIM-ETH ESTRAD TRIPHASIC 46740671313 No Longer Active Breanne Priti MARKS Active CLARITIN 10 MG TAB 1 tablet by mouth daily as needed for itchy r khari LORATADINE 10389689096 No Longer Active Ned Navarrete MD Active AUGMENTIN 875-125 MG TAB 1 po BID x 10 days with food AMOXICILLIN-POT CLAVULANATE 50910469217 No Longer Active Toni Washington DO Active ORTHO TRI-CYCLEN (28) 0.18/0.215/0.25 MG-35 MCG TABS 1 daily NORGESTIM-ETH ESTRAD TRIPHASIC 34600542040 No Longer Active Ned Navarrete MD Active ZOFRAN ODT 4 MG TBDP 1 po q6hr PRN Nausea ONDAN SETRON 56149612843 No Longer Active Ned Navarrete MD Active [facility] MEL[facility] 3 MG TABS Take 1 tablet at bedtime. 2013 MELATONIN 02238782170 No Longer Active Ned Navarrete MD Activ e BIOTIN 1000 MCG TABS Take 2 tablets daily BIOTI N 50702349208 No Longer Active Ned Navarrete MD Active OMEPRAZOLE 20 MG CPDR 1 tablet by mouth daily O MEPRAZOLE 80597259338 No Longer Active Mariana Moses APRN Active LATUDA 80 MG TABS 1 tablet daily LURASIDONE HCL 36999264182 No Longer Active Mariana Moses APRN Active ZOVIRAX 400 MG TABS Take 1 tablet every 8 hours as needed 2 ACYCLOVIR 68922505319 No Longer Active Ned Navarrete MD Activ e ZITHROMAX Z-CHACE 250 MG TABS 2 today, then 1 daily for 4 days 201 10/06/11 AZITHROMYCIN 10443576241 No Longer Active Ned Navarrete MD Active TOPAMAX 100 MG TABS 1 tablet daily TOPIRAMATE 54 278608129 No Longer Active Ned Navarrete MD Active AMOXICILLIN 500 MG CAPS 2 po BID x 10 days AMOX ICILLIN 69522617398 No Longer Active Saskia Simon MD PhD Active NAPROSYN 375 MG TAB 1 twice a day as needed for chest pain 04/01 NAPROXEN 04197818123 No Longer Active Saskia Simon MD PhD Active HYDROCORTISONE 2.5 % EXT CREA Apply three times a day to aff ected area HYDROCORTISONE 51847290655 No Longer Active Ned Navarrete MD Active TOPIRAMATE 50 MG TABS 1 QD TOPIRAMATE 17668216132 No Longer Active Ned Navarrete MD Active FANAPT 6 MG TABS 1 BID ILOPERIDONE 73808828183 No L onger Active Ned Navarrete MD Active CIPROFLOXACIN HCL 0.3 % SOLN 1 drop in right eye every 2 hours for 2 days, then 1 drop four times a day CIPROFLOXACIN HCL 88146790458 No Longer Active Ned Navarrete MD Active LORATADINE 10 MG TABS 1 tablet by mouth daily L ORATADINE 05139115739 No Longer Active Ned Navarrete MD Active RANITIDINE HCL 150 MG CAPS 1 twice a day RANITI DINE HCL 65199463047 No Longer Active Ned Navarrete MD Active RANITIDINE HCL 150 MG CAPS 1 twice a day RANITIDINE HCL 150 MG CAPS 152769 RANITIDINE HCL Inactive LORATADINE 10 MG TABS 1 tablet by mouth daily LORATADINE 10 MG TABS 197018 LORATADINE Inactive CIPROFLOXACIN HCL 0.3 % SOLN 1 drop in right eye every 2 hours for 2 days, then 1 drop four times a day CIPROFLOXACIN HCL 0.3 % SOLN 101552 CIPROFLOXACIN HCL Inactive FANAPT 6 MG TABS 1 BID FANAPT 6 MG TABS ILO PERIDONE Inactive TOPIRAMATE 50 MG TABS 1 QD TOPIRAMATE 50 MG TABS 1 99764 TOPIRAMATE Inactive HYDROCORTISONE 2.5 % EXT CREA Apply three times a day to aff ected area HYDROCORTISONE 2.5 % EXT CREA 675874 HYDROCORTIS ONE Inactive NAPROSYN 375 MG TAB 1 twice a day as needed for chest pain 04/01 NAPROSYN 375 MG TAB NAPROXEN Inactive TOPAMAX 100 MG TABS 1 tablet daily TOPAMAX 100 MG TABS 499397 TOPIRAMATE Inactive ZOVIRAX 400 MG TABS Take 1 tablet every 8 hours as needed 2 ZOVIRAX 400 MG TABS 19720728 ACYCLOVIR Inactive LATUDA 80 MG TABS 1 tablet daily LATUDA 80 MG TA BS LURASIDONE HCL Inactive OMEPRAZOLE 20 MG CPDR 1 tablet by mouth daily OMEPRAZOLE 20 MG CPDR 459334 OMEPRAZOLE Inactive BIOTIN 1000 MCG TABS Take 2 tablets daily BIOTIN 1000 MCG TABS 574214 BIOTIN Inactive [facility] M[facility] 3 MG TABS Take 1 tablet at bedtime. 2013 [facility] M[facility] 3 MG TABS 433184 MELATONIN Inactive ZOFRAN ODT 4 MG TBDP 1 po q6hr PRN Nausea ZOFRAN ODT 4 MG TBDP 395768 ONDANSETRON Inactive ORTHO TRI-CYCLEN (28) 0.18/0.215/0.25 MG-35 MCG TABS 1 daily ORTHO TRI-CYCLEN (28) 0.18/0.215/0.25 MG-35 MCG TABS 635848 NORGESTIM-ETH ESTRAD TRIPHASIC Inactive CLARITIN 10 MG TAB 1 tablet by mouth daily as needed for itchy r khari CLARITIN 10 MG TAB 538983 LORATADINE Inactive ORTHO TRI-CYCLEN (28) 0.18/0.215/0.25 MG-35 MCG TABS 1 daily ORTHO TRI-CYCLEN (28) 0.18/0.215/0.25 MG-35 MCG TABS 968066 NORGESTIM-ETH ESTRAD TRIPHASIC Inactive HYDROXYZINE HCL 25 MG TABS Take 1-2 tablets daily 2015 HYDROXYZINE HCL 25 MG TABS 680853 HYDROXYZINE HCL Inactive LORATADINE 10 MG TABS 1 tablet by mouth daily LORATADINE 10 MG TABS 878505 LORATADINE Inactive AMOXICILLIN 500 MG CAPS 2 po BID x 10 days AMOXICILLIN 500 MG CAPS 075463 AMOXICILLIN Inactive ZITHROMAX Z-CHACE 250 MG TABS 2 today, then 1 daily for 4 days 201 10/06/11 ZITHROMAX Z-CHACE 250 MG TABS 9905403 AZITHROMYCIN Inac tive AUGMENTIN 875-125 MG TAB 1 po BID x 10 days with food AUGMENTIN 875-125 MG TAB 195797 AMOXICILLIN-POT CLAVULANATE Inactiv e Advance Directives Directive Description Start Date CONSENT FOR MINOR CARE Immunizations Vaccine Administration Date Value Standard Dsemond cription Hepatitis A vaccine, ped/adol, 2 dose [...] 16 yo)) Fluzone preservative free (>3 yrs.) [[id number]] Influenza, seasonal, injectable, preservative free MPSV4 (meningococcal polysaccharide vaccination) Menactra meningococcal polysaccharide vaccine (MPSV4) hepatitis A immunization #1 Havrix-Pedi hepa titis A vaccine, unspecified formulation Adacel (Tetanus, reduced Diphtheria, and acellular Per tussis Immunization) Adacel [[id number]] tetanus toxoid, reduced diph theria toxoid, and [...] 11 .0-15.0 platelet count 210 THOUSAND/UL 10*3/mm3 621-058 8724/11/02 mean platelet volume 10.3 fL 7.5-11.5 Lab [...] ative Encounters Code Encounter Date Provider Facility CPT-48228 Level 2 Est. Patient 12:43:40 CDT Ned Navarrete MD -98978 Level 3 Est. Patient 14:38:48 CDT Toni duque DO -71093 Level 3 Est. Patient 09:02:58 MEDICAL PHYSICIST George paulson MD [facility] CPT-58564 Level 3 Est. Patient 17:42:32 CDT Ned Navarrete MD [facility] [place]-88858 Level 3 Est. Patient 11:04:31 MEDICAL PHYSICIST Mariana Torrez APRN [facility] CPT-64822 Level 4 Est. Patient 12:27:05 MEDICAL PHYSICIST Ned Navarrete MD [facility] [place]-92181 Level 3 Est. Patient 11:31:58 MEDICAL PHYSICIST Ned Navarrete MD [facility] CPT-05589 Level 3 Est. Patient 16:49:32 CDT Ned Navarrete MD [facility] CPT-52939 Level 4 Est. Patient 14:11:59 MEDICAL PHYSICIST Saskia green MD PhD [facility] CPT-79282 Level 3 Est. Patient 17:34:25 CDT Ned Navarrete MD [facility] [place]-93555 Level 3 Est. Patient 17:34:19 CDT Ned Navarrete MD [facility] [place]-34495 Level 3 Est. Patient 13:46:05 CDT Ned Navarrete MD [facility] [place]-87305 Level 3 Est. Patient 16:55:47 MEDICAL PHYSICIST Ned Navarrete MD [facility] CPT-09768 Level 2 Est. Patient 17:33:08 MEDICAL PHYSICIST Ned Navarrete MD [facility] CPT-30330 Level 3 Est. Patient 16:25:26 MEDICAL PHYSICIST Ned Navarrete MD [facility] Procedures Code Procedure Name Date Entry Date Standard Desc ription CPT-07913 Sono OB comp > 14 weeks - XRAY USE ONLY 17:00:59 MEDICAL PHYSICIST CPT-51785 UA w micro - LAB USE ONLY 16:59:38 CDT 2015 CPT-47877 TSH - LAB USE ONLY 16:59:38 CDT CPT-08550 Venipuncture Draw Fee 16:59:38 CDT CPT-79004 Spec Collection and Handling Fee 14:01:24 C DT CPT-32099 Visit 14:01:24 CDT CPT-033 KB Med Screen 14:03:18 CDT CPT-033 KB Med Screen 11:04:57 CDT CPT-033 KB Med Screen 10:29:44 CDT CPT-75479 Administration 2+ single or combination vaccines inc oral 14:02:47 MEDICAL PHYSICIST CPT-27148 Administration single or combination vac cine inc oral 14:02:47 MEDICAL PHYSICIST CPT-24998 Hepatitis A ped/adol 2 dose schedule 14:02:47 MEDICAL PHYSICIST CPT-23994 Gardasil 14:02:47 MEDICAL PHYSICIST CPT-10468 Administration single or combination vac cine inc oral 11:40:38 MEDICAL PHYSICIST CPT-56834 Gardasil 11:40:38 MEDICAL PHYSICIST CPT-29556 Administration single or combination vac cine inc oral 09:45:00 CDT CPT-24486 Influenza 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
--- OUTSIDE RECORDS SUMMARY | 2019-10-10 20:24 | XMS REPORT | Clinical Summary ---
Author Author Admin, Son Rodriguez [facility] Address Unknown Phone Unavailable Allergies, [...] Supervision of other normal V22.1 Inactive Ned Navarrtee MD Supervision of other normal Supervision of high risk due to social probl ems, third trimester V23.89 Active Rayna Ppeper APRN Ot er high-risk Drug use complicating , second trimester 648.33 2016 Inactive Missy PINEDA Drug dependence comp licating , childbirth, or the puerperium, antepartum condition or complication Methamphetamine abuse 305.70 In[facility] Amphetamine or related acting [...] 1 herman ly for 3 days PREDNISONE 85870343300 No Longer Active Ned pérez MD Active CEPHALEXIN 500 MG ORAL CAPS CEPHALEXIN 95955262558 No Longer Active Ned Navarrete MD Active LATUDA 20 MG ORAL TABS LURASIDONE HCL 8641812 0230 Active Breanne Madl RISK ENGINEER Active LORATADINE 10 MG TABS 1 tablet by mouth daily L ORATADINE 44885222866 No Longer Active Breanne Madl RISK ENGINEER Active HYDROXYZINE HCL 25 MG TABS Take 1-2 tablets daily 2015 HYDROXYZINE HCL 01471878090 No Longer Active Breanne Madl RISK ENGINEER Active ORTHO TRI-CYCLEN (28) 0.18/0.215/0.25 MG-35 MCG TABS 1 daily NORGESTIM-ETH ESTRAD TRIPHASIC 23407505149 No Longer Active Breanne Madl RISK ENGINEER Active CLARITIN 10 MG TAB 1 tablet by mouth daily as needed for itchy r khari LORATADINE 75648239098 No Longer Active Ned Navarrete MD Active AUGMENTIN 875-125 MG TAB 1 po BID x 10 days with food AMOXICILLIN-POT CLAVULANATE 37291674713 No Longer Active Toni Washington DO Active ORTHO TRI-CYCLEN (28) 0.18/0.215/0.25 MG-35 MCG TABS 1 daily NORGESTIM-ETH ESTRAD TRIPHASIC 25985701810 No Longer Active Ned Navarrete MD Active ZOFRAN ODT 4 MG TBDP 1 po q6hr PRN Nausea ONDAN SETRON 96789212276 No Longer Active Ned Navarrete MD Active [facility] MEL[facility] 3 MG TABS Take 1 tablet at bedtime. 2013 MELATONIN 12821118712 No Longer Active Ned Navarrete MD Activ e BIOTIN 1000 MCG TABS Take 2 tablets daily BIOTI N 78247030094 No Longer Active Ned Navarrete MD Active OMEPRAZOLE 20 MG CPDR 1 tablet by mouth daily O MEPRAZOLE 38925067564 No Longer Active Mariana Moses APRN Active LATUDA 80 MG TABS 1 tablet daily LURASIDONE HCL 87135814759 No Longer Active Mariana Moses APRN Active ZOVIRAX 400 MG TABS Take 1 tablet every 8 hours as needed 2 ACYCLOVIR 66271217061 No Longer Active Ned Navarrete MD Activ e ZITHROMAX Z-CHACE 250 MG TABS 2 today, then 1 daily for 4 days 201 10/06/11 AZITHROMYCIN 99116201718 No Longer Active Ned Navarrete MD Active TOPAMAX 100 MG TABS 1 tablet daily TOPIRAMATE 54 005634763 No Longer Active Ned Navarrete MD Active AMOXICILLIN 500 MG CAPS 2 po BID x 10 days AMOX ICILLIN 24629153111 No Longer Active Saskia Simon MD PhD Active NAPROSYN 375 MG TAB 1 twice a day as needed for chest pain 04/01 NAPROXEN 36548576850 No Longer Active Saskia Simon MD PhD Active HYDROCORTISONE 2.5 % EXT CREA Apply three times a day to aff ected area HYDROCORTISONE 22863042849 No Longer Active Ned Navarrete MD Active TOPIRAMATE 50 MG TABS 1 QD TOPIRAMATE 59570196230 No Longer Active Ned Navarrete MD Active FANAPT 6 MG TABS 1 BID ILOPERIDONE 08224870995 No L onger Active Ned Navarrete MD Active CIPROFLOXACIN HCL 0.3 % SOLN 1 drop in right eye every 2 hours for 2 days, then 1 drop four times a day CIPROFLOXACIN HCL 29743443344 No Longer Active Ned Navarrete MD Active LORATADINE 10 MG TABS 1 tablet by mouth daily L ORATADINE 90087265132 No Longer Active Ned Navarrete MD Active RANITIDINE HCL 150 MG CAPS 1 twice a day RANITI DINE HCL 25618199496 No Longer Active Ned Navarrete MD Active RANITIDINE HCL 150 MG CAPS 1 twice a day RANITIDINE HCL 150 MG CAPS 818961 RANITIDINE HCL Inactive LORATADINE 10 MG TABS 1 tablet by mouth daily LORATADINE 10 MG TABS 032886 LORATADINE Inactive CIPROFLOXACIN HCL 0.3 % SOLN 1 drop in right eye every 2 hours for 2 days, then 1 drop four times a day CIPROFLOXACIN HCL 0.3 % SOLN 379107 CIPROFLOXACIN HCL Inactive FANAPT 6 MG TABS 1 BID FANAPT 6 MG TABS ILO PERIDONE Inactive TOPIRAMATE 50 MG TABS 1 QD TOPIRAMATE 50 MG TABS 1 11517 TOPIRAMATE Inactive HYDROCORTISONE 2.5 % EXT CREA Apply three times a day to aff ected area HYDROCORTISONE 2.5 % EXT CREA 310109 HYDROCORTIS ONE Inactive NAPROSYN 375 MG TAB 1 twice a day as needed for chest pain 04/01 NAPROSYN 375 MG TAB NAPROXEN Inactive TOPAMAX 100 MG TABS 1 tablet daily TOPAMAX 100 MG TABS 300583 TOPIRAMATE Inactive ZOVIRAX 400 MG TABS Take 1 tablet every 8 hours as needed 2 ZOVIRAX 400 MG TABS 864741 ACYCLOVIR Inactive LATUDA 80 MG TABS 1 tablet daily LATUDA 80 MG TA BS LURASIDONE HCL Inactive OMEPRAZOLE 20 MG CPDR 1 tablet by mouth daily OMEPRAZOLE 20 MG CPDR 118119 OMEPRAZOLE Inactive BIOTIN 1000 MCG TABS Take 2 tablets daily BIOTIN 1000 MCG TABS 803256 BIOTIN Inactive [facility] MEL[facility] 3 MG TABS Take 1 tablet at bedtime. 2013 [facility] MEL[facility] 3 MG TABS 023124 MELATONIN Inactive ZOFRAN ODT 4 MG TBDP 1 po q6hr PRN Nausea ZOFRAN ODT 4 MG TBDP 964903 ONDANSETRON Inactive ORTHO TRI-CYCLEN (28) 0.18/0.215/0.25 MG-35 MCG TABS 1 daily ORTHO TRI-CYCLEN (28) 0.18/0.215/0.25 MG-35 MCG TABS 905528 NORGESTIM-ETH ESTRAD TRIPHASIC Inactive CLARITIN 10 MG TAB 1 tablet by mouth daily as needed for itchy r khari CLARITIN 10 MG TAB 697063 LORATADINE Inactive ORTHO TRI-CYCLEN (28) 0.18/0.215/0.25 MG-35 MCG TABS 1 daily ORTHO TRI-CYCLEN (28) 0.18/0.215/0.25 MG-35 MCG TABS 204563 NORGESTIM-ETH ESTRAD TRIPHASIC Inactive HYDROXYZINE HCL 25 MG TABS Take 1-2 tablets daily 2015 HYDROXYZINE HCL 25 MG TABS 149933 HYDROXYZINE HCL Inactive LORATADINE 10 MG TABS 1 tablet by mouth daily LORATADINE 10 MG TABS 408846 LORATADINE Inactive CEPHALEXIN 500 MG ORAL CAPS CEPHALEX IN 500 MG ORAL CAPS 201895 CEPHALEXIN Inactive PREDNISONE 20 MG TABS Take 2 daily for 3 days and then 1 herman ly for 3 days PREDNISONE 20 MG TABS 809721 PREDNISONE Inacti ve AMOXICILLIN 500 MG CAPS 2 po BID x 10 days AMOXICILLIN 500 MG CAPS 379085 AMOXICILLIN Inactive ZITHROMAX Z-CHACE 250 MG TABS 2 today, then 1 daily for 4 days 201 10/06/11 ZITHROMAX Z-CHACE 250 MG TABS 6520094 AZITHROMYCIN Inac tive AUGMENTIN 875-125 MG TAB 1 po BID x 10 days with food AUGMENTIN 875-125 MG TAB 560910 AMOXICILLIN-POT CLAVULANATE Inactiv e Advance Directives Directive [...] 18 yo)) Fluzone preservative free (>3 yrs.) [[id number]] Influenza, seasonal, injectable, preservative free MPSV4 (meningococcal polysaccharide vaccination) Menactra meningococcal polysaccharide vaccine (MPSV4) hepatitis A immunization #1 Havrix-Pedi hepa titis A vaccine, unspecified formulation Adacel (Tetanus, reduced Diphtheria, and acellular Per tussis Immunization) Adacel [[id number]] tetanus toxoid, reduced diph theria toxoid, and [...] 11 .0-15.0 platelet count 210 THOUSAND/UL 10*3/mm3 450-886 3127/11/02 mean platelet volume 10.3 fL 7.5-11.5 Lab [...] N Encounters Code Encounter Date Provider Facility CPT-98648 Level 3 Est. Patient 15:21:38 CORING MACHINE OPERATOR Rayna Pepper [facility] CPT-11515 Level 3 Est. Patient 15:35:51 CORING MACHINE OPERATOR Ned Navarrete MD [facility] CPT-65485 Level 2 Est. Patient 12:43:40 CDT Ned Navarrete MD [facility]-44733 Level 3 Est. Patient 14:38:48 CDT Toni duque DO [facility] CPT-03041 Level 3 Est. Patient 09:02:58 CORING MACHINE OPERATOR George paulson MD [facility] CPT-80372 Level 3 Est. Patient 17:42:32 CDT Ned Navarrete MD [facility] CPT-45311 Level 3 Est. Patient 11:04:31 CORING MACHINE OPERATOR Mariana Torrez APRN [facility] CPT-50495 Level 4 Est. Patient 12:27:05 CORING MACHINE OPERATOR Ned Navarrete MD [facility] CPT-73778 Level 3 Est. Patient 11:31:58 CORING MACHINE OPERATOR Ned Navarrete MD [facility] CPT-27647 Level 3 Est. Patient 16:49:32 CDT Ned Navarrete MD [facility] CPT-98651 Level 4 Est. Patient 14:11:59 CORING MACHINE OPERATOR Saskia green MD PhD [facility] CPT-82567 Level 3 Est. Patient 17:34:25 CDT Ned Navarrete MD [facility] CPT-62282 Level 3 Est. Patient 17:34:19 CDT Ned Navarrete MD [facility] CPT-94442 Level 3 Est. Patient 13:46:05 CDT Ned Navarrete MD [facility] CPT-34784 Level 3 Est. Patient 16:55:47 CORING MACHINE OPERATOR Ned Navarrete MD [facility] CPT-95725 Level 2 Est. Patient 17:33:08 CORING MACHINE OPERATOR Ned Navarrete MD [facility] CPT-07908 Level 3 Est. Patient 16:25:26 CORING MACHINE OPERATOR Ned Navarrete MD [facility] Procedures Code Procedure Name Date Entry Date Standard Desc ription CPT-10411 Tdap 7yrs or > 14:41:06 CDT CPT-54168 Visit 17:47:08 CDT CPT-55678 OBGTT 1 - LAB USE ONLY 10:15:57 CDT CPT-68101 Venipuncture Draw Fee 10:15:57 CDT CPT-58303 Visit 15:07:16 CORING MACHINE OPERATOR CPT-06685 Visit 16:49:41 CORING MACHINE OPERATOR CPT-05381 Sono OB limited - XRAY USE ONLY 16:38:01 CS T CPT-94752 Sono OB comp > 14 weeks - XRAY USE ONLY 17:00:59 CORING MACHINE OPERATOR CPT-30489 UA w micro - LAB USE ONLY 16:59:38 CDT 2015 CPT-22726 TSH - LAB USE ONLY 16:59:38 CDT CPT-93704 Venipuncture Draw Fee 16:59:38 CDT CPT-48939 Spec Collection and Handling Fee 14:01:24 C DT CPT-34025 Visit 14:01:24 CDT CPT-033 [facility] Med Screen 14:03:18 CDT CPT-033 [facility] Med Screen 11:04:57 CDT CPT-033 [facility] Med Screen 10:29:44 CDT CPT-44480 Administration 2+ single or combination vaccines inc oral 14:02:47 CORING MACHINE OPERATOR CPT-38004 Administration single or combination vac cine inc oral 14:02:47 CORING MACHINE OPERATOR CPT-91043 Hepatitis A ped/adol 2 dose schedule 14:02:47 CORING MACHINE OPERATOR CPT-95893 Gardasil 14:02:47 CORING MACHINE OPERATOR CPT-36023 Administration single or combination vac cine inc oral 11:40:38 CORING MACHINE OPERATOR CPT-47032 Gardasil 11:40:38 CORING MACHINE OPERATOR CPT-99260 Administration single or combination vac cine inc oral 09:45:00 CDT CPT-71883 Influenza Preservative Free split virus >age 3 09:45:00 CDT CPT-83633 Venipuncture Draw Fee 07:59:02 CDT
--- OUTSIDE RECORDS SUMMARY | 2019-10-10 20:25 | XMS REPORT | Clinical Summary ---
Author Author Admin, Son Chan Organization [employer] Address Unknown Phone Unavailable Allergies, Adverse Reactions, [...] V22.2 Active Maia Wood LPN state, incidental NASOLACRIMAL DUCT OBSTRUCTION, LEFT ICD-375.56 Inactive Ned Navarrete MD NASOLACRIMAL DUCT OBSTRUCTION, RIGHT ICD-375.56 Inactive Ned Navarrete MD ANKLE SPRAIN ICD-845.00 Inactive Ned manley MD WEIGHT GAIN ICD-783.1 Inactive Ned Navarrete MD DERMATITIS, ALLERGIC ICD-692.9 Inactive Saskia Simon MD PhD COSTOCHONDRITIS ICD-733.6 Inactive Saskia Simon MD PhD SINUSITIS, ACUTE ICD-461.9 Inactive Ned pérez MD CONCUSSION WITH NO LOSS OF CONSCIOUSNESS ICD-850.0 Inactive Ned Navarrete MD Gastroenteritis ICD-558.9 Inactive Ned Prescott MD Gastroenteritis Inactive George Frances MD Drug use complicating , second trimester ICD-648.33 Inactive Missy Hayes LRT Methamphetamine abuse ICD-305.70 Inactive Andreea Hayes LRT 20 weeks gestation of ICD-V28.9 Inac tialexandra Hayes LRT 22 weeks gestation of ICD-V28.9 Inac tialexandra Hayes LRT Pharyngitis, acute ICD-462 Inactive Ned Navarrete MD VISUAL CHANGES ICD-368.10 Inactive Ned Prescott MD Medication List Medication Instructions Start Date Stop Date Generic Name NDC Status Provider Patient Instruction PREDNISONE 20 MG TABS Take 2 daily for 3 days and then 1 herman ly for 3 days PREDNISONE 80185792019 No Longer Active Ned pérez MD Active CEPHALEXIN 500 MG ORAL CAPS CEPHALEXIN 18989734486 No Longer Active Ned Navarrete MD Active LATUDA 20 MG ORAL TABS LURASIDONE HCL 9778136 0230 Active Breanne Madl MANAGER FUND Active LORATADINE 10 MG TABS 1 tablet by mouth daily L ORATADINE 29595503867 No Longer Active Breanne Madl MANAGER FUND Active HYDROXYZINE HCL 25 MG TABS Take 1-2 tablets daily 2015 HYDROXYZINE HCL 60202478893 No Longer Active Breanne Madl MANAGER FUND Active ORTHO TRI-CYCLEN (28) 0.18/0.215/0.25 MG-35 MCG TABS 1 daily NORGESTIM-ETH ESTRAD TRIPHASIC 99408137392 No Longer Active Breanne Madl MANAGER FUND Active CLARITIN 10 MG TAB 1 tablet by mouth daily as needed for itchy r khari LORATADINE 21436215876 No Longer Active Ned Navarrete MD Active AUGMENTIN 875-125 MG TAB 1 po BID x 10 days with food AMOXICILLIN-POT CLAVULANATE 07146268678 No Longer Active Toni Washington DO Active ORTHO TRI-CYCLEN (28) 0.18/0.215/0.25 MG-35 MCG TABS 1 daily NORGESTIM-ETH ESTRAD TRIPHASIC 27390774072 No Longer Active Ned Navarrete MD Active ZOFRAN ODT 4 MG TBDP 1 po q6hr PRN Nausea ONDAN SETRON 52754059276 No Longer Active Ned Navarrete MD Active [facility] MELAT[facility] 3 MG TABS Take 1 tablet at bedtime. 2013 MELATONIN 38864139992 No Longer Active Ned Navarrete MD Activ e BIOTIN 1000 MCG TABS Take 2 tablets daily BIOTI N 17606048529 No Longer Active Ned Navarrete MD Active OMEPRAZOLE 20 MG CPDR 1 tablet by mouth daily O MEPRAZOLE 83495425229 No Longer Active Mariana Moses APRN Active LATUDA 80 MG TABS 1 tablet daily LURASIDONE HCL 55181584288 No Longer Active Mariana Moses APRN Active ZOVIRAX 400 MG TABS Take 1 tablet every 8 hours as needed 2 ACYCLOVIR 53267197721 No Longer Active Ned Navarrete MD Activ e ZITHROMAX Z-CHACE 250 MG TABS 2 today, then 1 daily for 4 days 201 10/06/11 AZITHROMYCIN 71526650717 No Longer Active Ned Navarrete MD Active TOPAMAX 100 MG TABS 1 tablet daily TOPIRAMATE 54 068887966 No Longer Active Ned Navarrete MD Active AMOXICILLIN 500 MG CAPS 2 po BID x 10 days AMOX ICILLIN 68320154212 No Longer Active Saskia Simon MD PhD Active NAPROSYN 375 MG TAB 1 twice a day as needed for chest pain 04/01 NAPROXEN 81532701681 No Longer Active Saskia Simon MD PhD Active HYDROCORTISONE 2.5 % EXT CREA Apply three times a day to aff ected area HYDROCORTISONE 82471503248 No Longer Active Ned Navarrete MD Active TOPIRAMATE 50 MG TABS 1 QD TOPIRAMATE 05767637347 No Longer Active Ned Navarrete MD Active FANAPT 6 MG TABS 1 BID ILOPERIDONE 71639914124 No L onger Active Ned Navarrete MD Active CIPROFLOXACIN HCL 0.3 % SOLN 1 drop in right eye every 2 hours for 2 days, then 1 drop four times a day CIPROFLOXACIN HCL 89306008376 No Longer Active Ned Navarrete MD Active LORATADINE 10 MG TABS 1 tablet by mouth daily L ORATADINE 54444582570 No Longer Active Ned Navarrete MD Active RANITIDINE HCL 150 MG CAPS 1 twice a day RANITI DINE HCL 32513889665 No Longer Active Ned Navarrete MD Active RANITIDINE HCL 150 MG CAPS 1 twice a day RANITIDINE HCL 150 MG CAPS 846996 RANITIDINE HCL Inactive LORATADINE 10 MG TABS 1 tablet by mouth daily LORATADINE 10 MG TABS 656661 LORATADINE Inactive CIPROFLOXACIN HCL 0.3 % SOLN 1 drop in right eye every 2 hours for 2 days, then 1 drop four times a day CIPROFLOXACIN HCL 0.3 % SOLN 252280 CIPROFLOXACIN HCL Inactive FANAPT 6 MG TABS 1 BID FANAPT 6 MG TABS ILO PERIDONE Inactive TOPIRAMATE 50 MG TABS 1 QD TOPIRAMATE 50 MG TABS 1 41036 TOPIRAMATE Inactive HYDROCORTISONE 2.5 % EXT CREA Apply three times a day to aff ected area HYDROCORTISONE 2.5 % EXT CREA 756641 HYDROCORTIS ONE Inactive NAPROSYN 375 MG TAB 1 twice a day as needed for chest pain 04/01 NAPROSYN 375 MG TAB NAPROXEN Inactive TOPAMAX 100 MG TABS 1 tablet daily TOPAMAX 100 MG TABS 964276 TOPIRAMATE Inactive ZOVIRAX 400 MG TABS Take 1 tablet every 8 hours as needed 2 ZOVIRAX 400 MG TABS 212312 ACYCLOVIR Inactive LATUDA 80 MG TABS 1 tablet daily LATUDA 80 MG TA BS LURASIDONE HCL Inactive OMEPRAZOLE 20 MG CPDR 1 tablet by mouth daily OMEPRAZOLE 20 MG CPDR 851558 OMEPRAZOLE Inactive BIOTIN 1000 MCG TABS Take 2 tablets daily BIOTIN 1000 MCG TABS 439033 BIOTIN Inactive [facility] MEL[facility]IN 3 MG TABS Take 1 tablet at bedtime. 2013 [facility] MELATONIN 3 MG TABS 545877 MELATONIN Inactive ZOFRAN ODT 4 MG TBDP 1 po q6hr PRN Nausea ZOFRAN ODT 4 MG TBDP 052954 ONDANSETRON Inactive ORTHO TRI-CYCLEN (28) 0.18/0.215/0.25 MG-35 MCG TABS 1 daily ORTHO TRI-CYCLEN (28) 0.18/0.215/0.25 MG-35 MCG TABS 630497 NORGESTIM-ETH ESTRAD TRIPHASIC Inactive CLARITIN 10 MG TAB 1 tablet by mouth daily as needed for itchy r khari CLARITIN 10 MG TAB 326327 LORATADINE Inactive ORTHO TRI-CYCLEN (28) 0.18/0.215/0.25 MG-35 MCG TABS 1 daily ORTHO TRI-CYCLEN (28) 0.18/0.215/0.25 MG-35 MCG TABS 098051 NORGESTIM-ETH ESTRAD TRIPHASIC Inactive HYDROXYZINE HCL 25 MG TABS Take 1-2 tablets daily 2015 HYDROXYZINE HCL 25 MG TABS 758579 HYDROXYZINE HCL Inactive LORATADINE 10 MG TABS 1 tablet by mouth daily LORATADINE 10 MG TABS 776794 LORATADINE Inactive CEPHALEXIN 500 MG ORAL CAPS CEPHALEX IN 500 MG ORAL CAPS 972967 CEPHALEXIN Inactive PREDNISONE 20 MG TABS Take 2 daily for 3 days and then 1 herman ly for 3 days PREDNISONE 20 MG TABS 337231 PREDNISONE Inacti ve AMOXICILLIN 500 MG CAPS 2 po BID x 10 days AMOXICILLIN 500 MG CAPS 009113 AMOXICILLIN Inactive ZITHROMAX Z-CHACE 250 MG TABS 2 today, then 1 daily for 4 days 201 10/06/11 ZITHROMAX Z-CHACE 250 MG TABS 7386898 AZITHROMYCIN Inac tive AUGMENTIN 875-125 MG TAB 1 po BID x 10 days with food AUGMENTIN 875-125 MG TAB 929718 AMOXICILLIN-POT CLAVULANATE Inactiv e Advance Directives Directive [...] 18 yo)) Fluzone preservative free (>3 yrs.) [[id number]] Influenza, seasonal, injectable, preservative free MPSV4 (meningococcal polysaccharide vaccination) Menactra meningococcal polysaccharide vaccine (MPSV4) hepatitis A immunization #1 Havrix-Pedi hepa titis A vaccine, unspecified formulation Adacel (Tetanus, reduced Diphtheria, and acellular Per tussis Immunization) Adacel [[id number]] tetanus toxoid, reduced diph theria toxoid, and [...] Range Description blood pressure, diastolic - 8462-4 68 mm[Hg] BP michele blood pressure, systolic - 8480-6 110 mm[Hg] BP sys pulse rate E&M - 8867-4 90 /min H eart rate temperature E&M 99.4 [degF] Body temp erature weight E&M - 3141-9 162.0 [lb_av] Weigh t Measured blood pressure, diastolic - 8462-4 73 mm[Hg] BP michele blood pressure, systolic - 8480-6 110 mm[Hg] BP sys pulse rate E&M - 8867-4 99 /min H eart rate temperature E&M 98.3 [degF] Body temp erature weight E&M - 3141-9 161 [lb_av] Weigh t Measured blood pressure, diastolic [...] 11 .0-15.0 platelet count 210 THOUSAND/UL 10*3/mm3 253-330 8116/11/02 mean platelet volume 10.3 fL 7.5-11.5 Lab [...] N Encounters Code Encounter Date Provider Facility CPT-30690 Level 3 Est. Patient 15:21:38 OLIVIA Pepper [facility] CPT-75557 Level 3 Est. Patient 15:35:51 TECHNICAL ASSISTANCE CONSULTANT Ned Navarrete MD [facility]-29029 Level 2 Est. Patient 12:43:40 CDT Ned Navarrete MD [facility]-67469 Level 3 Est. Patient 14:38:48 CDT T[facility] CPT-77015 Level 3 Est. Patient 09:02:58 TECHNICAL ASSISTANCE CONSULTANT George paulson [facility] CPT-63667 Level 3 Est. Patient 17:42:32 CDT Ned Navarrete MD [facility]-25940 Level 3 Est. Patient 11:04:31 TECHNICAL ASSISTANCE CONSULTANT Mariana Torrez [facility] CPT-53864 Level 4 Est. Patient 12:27:05 TECHNICAL ASSISTANCE CONSULTANT Ned Navarrete MD [facility]-23607 Level 3 Est. Patient 11:31:58 TECHNICAL ASSISTANCE CONSULTANT Ned Navarrete [facility] CPT-33657 Level 3 Est. Patient 16:49:32 CDT Ned Navarrete MD [facility]-30766 Level 4 Est. Patient 14:11:59 TECHNICAL ASSISTANCE CONSULTANT Saskia green MD PhD [facility] CPT-90941 Level 3 Est. Patient 17:34:25 CDT Ned Navarrete MD [facility] CPT-06635 Level 3 Est. Patient 17:34:19 CDT Ned Navarrete MD [facility] CPT-80369 Level 3 Est. Patient 13:46:05 CDT Ned Navarrete MD [facility]-65495 Level 3 Est. Patient 16:55:47 TECHNICAL ASSISTANCE CONSULTANT Ned Navarrete MD [facility]-17274 Level 2 Est. Patient 17:33:08 TECHNICAL ASSISTANCE CONSULTANT Ned Navarrete MD [facility]-37009 Level 3 Est. Patient 16:25:26 TECHNICAL ASSISTANCE CONSULTANT Ned Navarrete [facility] Procedures Code Procedure Name Date Entry Date Standard Desc ription CPT-48002 Visit 14:52:59 CDT CPT-91447 Visit 15:17:20 CDT CPT-45793 Visit 15:57:29 CDT CPT-36634 First Vx - Ix admin via ID I M or jet injects without counseling by physician 15:53:15 CDT CPT-68338 Boostrix Intramuscular Suspension 5-2.5-18.5 201 01/28/11 15:53:14 CDT CPT-97197 Tdap 7yrs or > 14:41:06 CDT CPT-35632 Visit 17:47:08 CDT CPT-65298 OBGTT 1 - LAB USE ONLY 10:15:57 CDT CPT-81105 Venipuncture Draw Fee 10:15:57 CDT CPT-04901 Visit 15:07:16 TECHNICAL ASSISTANCE CONSULTANT CPT-31456 Visit 16:49:41 TECHNICAL ASSISTANCE CONSULTANT CPT-38921 Sono OB limited - XRAY USE ONLY 16:38:01 CS T CPT-14747 Sono OB comp > 14 weeks - XRAY USE ONLY 17:00:59 TECHNICAL ASSISTANCE CONSULTANT CPT-26127 UA w micro - LAB USE ONLY 16:59:38 CDT 2015 CPT-15998 TSH - LAB USE ONLY 16:59:38 CDT CPT-48525 Venipuncture Draw Fee 16:59:38 CDT CPT-01815 Spec Collection and Handling Fee 14:01:24 C DT CPT-34016 Visit 14:01:24 CDT CPT-033 [facility] Med Screen 14:03:18 CDT CPT-033 [facility] Med Screen 11:04:57 CDT CPT-033 [facility] Med Screen 10:29:44 CDT CPT-78024 Administration 2+ single or combination vaccines inc oral 14:02:47 TECHNICAL ASSISTANCE CONSULTANT CPT-44167 Administration single or combination vac cine inc oral 14:02:47 TECHNICAL ASSISTANCE CONSULTANT CPT-18125 Hepatitis A ped/adol 2 dose schedule 14:02:47 TECHNICAL ASSISTANCE CONSULTANT CPT-10519 Gardasil 14:02:47 TECHNICAL ASSISTANCE CONSULTANT CPT-44358 Administration single or combination vac cine inc oral 11:40:38 TECHNICAL ASSISTANCE CONSULTANT CPT-31777 Gardasil 11:40:38 TECHNICAL ASSISTANCE CONSULTANT CPT-05828 Administration single or combination vac cine inc oral 09:45:00 CDT CPT-38613 Influenza Preservative Free split virus >age 3 09:45:00 CDT CPT-31642 Venipuncture Draw Fee 07:59:02 CDT
--- OUTSIDE RECORDS SUMMARY | 2019-10-10 20:25 | XMS REPORT | Clinical Summary ---
Author Author Admin, Son Chan Organization [employer] Address Unknown Phone Unavailable Allergies, Adverse Reactions, [...] Ned Navarrete MD VISUAL CHANGES ICD-368.10 Inactive Nde Prescott MD SINUSITIS, ACUTE ICD-461.9 Inactive Ned pérez MD Pharyngitis, acute ICD-462 Inactive Ned Navarrete MD Gastroenteritis ICD-558.9 Inactive Ned Prescott MD Gastroenteritis Inactive George Frances MD Drug use complicating , second trimester ICD-648.33 Inactive Missy Hayes LRT Methamphetamine abuse ICD-305.70 Inactive Andreea Hayes LRT 20 weeks gestation of ICD-V28.9 Inac tialeaxndra Hayes LRT 22 weeks gestation of ICD-V28.9 Inac tialexandra Hayes LRT Medication List Medication Instructions Start Date Stop Date Generic Name NDC Status Provider Patient Instruction PREDNISONE 20 MG TABS Take 2 daily for 3 days and then 1 herman ly for 3 days PREDNISONE 04247184375 No Longer Active Ned pérez MD Active CEPHALEXIN 500 MG ORAL CAPS CEPHALEXIN 57691683282 No Longer Active eNd Navarrete MD Active LATUDA 20 MG ORAL TABS LURASIDONE HCL 5935800 0230 Active Breanne Madl INSTRUCTIONAL COORDINATOR Active LORATADINE 10 MG TABS 1 tablet by mouth daily L ORATADINE 28173239047 No Longer Active Breanne Madl INSTRUCTIONAL COORDINATOR Active HYDROXYZINE HCL 25 MG TABS Take 1-2 tablets daily 2015 HYDROXYZINE HCL 42166815769 No Longer Active Breanne Madl INSTRUCTIONAL COORDINATOR Active ORTHO TRI-CYCLEN (28) 0.18/0.215/0.25 MG-35 MCG TABS 1 daily NORGESTIM-ETH ESTRAD TRIPHASIC 62861468674 No Longer Active Breanne Madl INSTRUCTIONAL COORDINATOR Active CLARITIN 10 MG TAB 1 tablet by mouth daily as needed for itchy r khari LORATADINE 82571945680 No Longer Active Ned Navarrete MD Active AUGMENTIN 875-125 MG TAB 1 po BID x 10 days with food AMOXICILLIN-POT CLAVULANATE 12359905416 No Longer Active Toni Washington DO Active ORTHO TRI-CYCLEN (28) 0.18/0.215/0.25 MG-35 MCG TABS 1 daily NORGESTIM-ETH ESTRAD TRIPHASIC 88175351766 No Longer Active Ned Navarrete MD Active ZOFRAN ODT 4 MG TBDP 1 po q6hr PRN Nausea ONDAN SETRON 54245061368 No Longer Active Ned Navarrete MD Active [facility] MEL[facility] 3 MG TABS Take 1 tablet at bedtime. 2013 MELATONIN 97800638912 No Longer Active Ned Navarrete MD Activ e BIOTIN 1000 MCG TABS Take 2 tablets daily BIOTI N 29821609738 No Longer Active Ned Navarrete MD Active OMEPRAZOLE 20 MG CPDR 1 tablet by mouth daily O MEPRAZOLE 81682251424 No Longer Active Mariana Moses APRN Active LATUDA 80 MG TABS 1 tablet daily LURASIDONE HCL 15960765859 No Longer Active Mariana Moses APRN Active ZOVIRAX 400 MG TABS Take 1 tablet every 8 hours as needed 2 ACYCLOVIR 30721598436 No Longer Active Ned Navarrete MD Activ e ZITHROMAX Z-CHACE 250 MG TABS 2 today, then 1 daily for 4 days 201 10/06/11 AZITHROMYCIN 53268715497 No Longer Active Ned Navarrete MD Active TOPAMAX 100 MG TABS 1 tablet daily TOPIRAMATE 54 052258011 No Longer Active Ned Navarrete MD Active AMOXICILLIN 500 MG CAPS 2 po BID x 10 days AMOX ICILLIN 81117851342 No Longer Active Saskia Simon MD PhD Active NAPROSYN 375 MG TAB 1 twice a day as needed for chest pain 04/01 NAPROXEN 40559653353 No Longer Active Saskia Simon MD PhD Active HYDROCORTISONE 2.5 % EXT CREA Apply three times a day to aff ected area HYDROCORTISONE 01339459753 No Longer Active Ned Navarrete MD Active TOPIRAMATE 50 MG TABS 1 QD TOPIRAMATE 83501501060 No Longer Active Ned Navarrete MD Active FANAPT 6 MG TABS 1 BID ILOPERIDONE 39355633744 No L onger Active Ned Navarrete MD Active CIPROFLOXACIN HCL 0.3 % SOLN 1 drop in right eye every 2 hours for 2 days, then 1 drop four times a day CIPROFLOXACIN HCL 57292471175 No Longer Active Ned Navarrete MD Active LORATADINE 10 MG TABS 1 tablet by mouth daily L ORATADINE 10557641005 No Longer Active Ned Navarrete MD Active RANITIDINE HCL 150 MG CAPS 1 twice a day RANITI DINE HCL 92378722978 No Longer Active Ned Navarrete MD Active RANITIDINE HCL 150 MG CAPS 1 twice a day RANITIDINE HCL 150 MG CAPS 872048 RANITIDINE HCL Inactive LORATADINE 10 MG TABS 1 tablet by mouth daily LORATADINE 10 MG TABS 892665 LORATADINE Inactive CIPROFLOXACIN HCL 0.3 % SOLN 1 drop in right eye every 2 hours for 2 days, then 1 drop four times a day CIPROFLOXACIN HCL 0.3 % SOLN 317067 CIPROFLOXACIN HCL Inactive FANAPT 6 MG TABS 1 BID FANAPT 6 MG TABS ILO PERIDONE Inactive TOPIRAMATE 50 MG TABS 1 QD TOPIRAMATE 50 MG TABS 1 81193 TOPIRAMATE Inactive HYDROCORTISONE 2.5 % EXT CREA Apply three times a day to aff ected area HYDROCORTISONE 2.5 % EXT CREA 938848 HYDROCORTIS ONE Inactive NAPROSYN 375 MG TAB 1 twice a day as needed for chest pain 04/01 NAPROSYN 375 MG TAB NAPROXEN Inactive TOPAMAX 100 MG TABS 1 tablet daily TOPAMAX 100 MG TABS 497342 TOPIRAMATE Inactive ZOVIRAX 400 MG TABS Take 1 tablet every 8 hours as needed 2 ZOVIRAX 400 MG TABS 037952 ACYCLOVIR Inactive LATUDA 80 MG TABS 1 tablet daily LATUDA 80 MG TA BS LURASIDONE HCL Inactive OMEPRAZOLE 20 MG CPDR 1 tablet by mouth daily OMEPRAZOLE 20 MG CPDR 674682 OMEPRAZOLE Inactive BIOTIN 1000 MCG TABS Take 2 tablets daily BIOTIN 1000 MCG TABS 594716 BIOTIN Inactive [facility] M[facility] 3 MG TABS Take 1 tablet at bedtime. 2013 [facility] MEL[facility] 3 MG TABS 598733 MELATONIN Inactive ZOFRAN ODT 4 MG TBDP 1 po q6hr PRN Nausea ZOFRAN ODT 4 MG TBDP 477062 ONDANSETRON Inactive ORTHO TRI-CYCLEN (28) 0.18/0.215/0.25 MG-35 MCG TABS 1 daily ORTHO TRI-CYCLEN (28) 0.18/0.215/0.25 MG-35 MCG TABS 492507 NORGESTIM-ETH ESTRAD TRIPHASIC Inactive CLARITIN 10 MG TAB 1 tablet by mouth daily as needed for itchy r khari CLARITIN 10 MG TAB 754611 LORATADINE Inactive ORTHO TRI-CYCLEN (28) 0.18/0.215/0.25 MG-35 MCG TABS 1 daily ORTHO TRI-CYCLEN (28) 0.18/0.215/0.25 MG-35 MCG TABS 844222 NORGESTIM-ETH ESTRAD TRIPHASIC Inactive HYDROXYZINE HCL 25 MG TABS Take 1-2 tablets daily 2015 HYDROXYZINE HCL 25 MG TABS 413269 HYDROXYZINE HCL Inactive LORATADINE 10 MG TABS 1 tablet by mouth daily LORATADINE 10 MG TABS 055831 LORATADINE Inactive CEPHALEXIN 500 MG ORAL CAPS CEPHALEX IN 500 MG ORAL CAPS 920026 CEPHALEXIN Inactive PREDNISONE 20 MG TABS Take 2 daily for 3 days and then 1 herman ly for 3 days PREDNISONE 20 MG TABS 027434 PREDNISONE Inacti ve AMOXICILLIN 500 MG CAPS 2 po BID x 10 days AMOXICILLIN 500 MG CAPS 838560 AMOXICILLIN Inactive ZITHROMAX Z-CHACE 250 MG TABS 2 today, then 1 daily for 4 days 201 10/06/11 ZITHROMAX Z-CHACE 250 MG TABS 3668434 AZITHROMYCIN Inac tive AUGMENTIN 875-125 MG TAB 1 po BID x 10 days with food AUGMENTIN 875-125 MG TAB 608641 AMOXICILLIN-POT CLAVULANATE Inactiv e Advance Directives Directive [...] 18 yo)) Fluzone preservative free (>3 yrs.) [[id number]] Influenza, seasonal, injectable, preservative free MPSV4 (meningococcal polysaccharide vaccination) Menactra meningococcal polysaccharide vaccine (MPSV4) hepatitis A immunization #1 Havrix-Pedi hepa titis A vaccine, unspecified formulation Adacel (Tetanus, reduced Diphtheria, and acellular Per tussis Immunization) Adacel [[id number]] tetanus toxoid, reduced diph theria toxoid, and acellular pertussis vaccine, adsorbed influenza immunization (Flu Vax) has been administered 2 Historical influenza virus vaccine, unspecified formulation oral polio vaccine (OPV) #4 Historical case ovirus vaccine, unspecified formulation MMR (measles, mumps, rubella) virus immunization #2 Historical DPT immunization #5 Historical DPT immunization #4 Historical Hemophilus influenza [...] RBCW/REFL I, CBC (INCL ... - Hematology leukocyte count, blood 7.5 THOUSAND/UL 10*3/mm3 4.5-13.0 erythrocyte (RBC) count 4.38 MILLION/UL 10*6/mm3 3.80-5. 10 hemoglobin, blood 13.4 g/dL 11.5-15.3 Blood type A hematocrit, blood 39.9 % 34.0-46.0 mean corpuscular volume, RBC 91.0 fL 78.0-98 .0 mean corpuscular hemoglobin, RBC 30.5 pg 25. 0-35.0 mean corpuscular hemoglobin concentration, RBC 33.5 G/DL % 31.0-36.0 red blood cell distribution width 14.4 % 11 .0-15.0 platelet count 210 THOUSAND/UL 10*3/mm3 069-106 9760/11/02 mean platelet volume 10.3 fL 7.5-11.5 Lab [...] Hormone (L), UADIP W/MICRO, AUTO - Chemistry protein, total urine random Negative mg/dL Negative TSH 2.68 m[iU]/mL 0.36-3.74 RBC, urine, dipstick Negative Negative Lab Report: Thyroid Stimulating Hormone (L), UADIP W/MICRO, AUTO - Urinalysis urobilinogen, urine, semiquantitative (dipstick) 0.2 Normal leukocyte esterase, urine, by dipstick Negative Negative nitrite, urine, semiquantitative Negative Neg ative pH, urine, semiquantitative 6.5 5.0-8.5 specific gravity, urine <=1.005 1.000-1.030 appearance, urine Clear Clear urine color Yellow Colorless;Lightyellow;St raw;Yellow glucose, urine, semiquantitative Negative Neg ative ketones, urine, by test strip Negative Negati ve bilirubin, urine Negative Negative Office Visit: 4 wk OB - Urinalysis protein, urine, semiquantitative (dipstick) N glucose, urine, semiquantitative N nitrite, urine, semiquantitative N Encounters Code Encounter Date Provider Facility CPT-93623 Level 3 Est. Patient 15:35:51 HAIRSPRING II INSPECTOR Ned Navarrete MD [facility] CPT-19735 Level 2 Est. Patient 12:43:40 CDT Ned Navarrete MD [facility] CPT-97804 Level 3 Est. Patient 14:38:48 CDT Toni duque DO [facility] CPT-50390 Level 3 Est. Patient 09:02:58 HAIRSPRING II INSPECTOR George paulson MD [facility] CPT-13011 Level 3 Est. Patient 17:42:32 CDT Ned Navarrete MD [facility] CPT-99112 Level 3 Est. Patient 11:04:31 HAIRSPRING II INSPECTOR Mariana Torrez APRN [facility] CPT-93222 Level 4 Est. Patient 12:27:05 HAIRSPRING II INSPECTOR Ned Navarrete MD [facility] CPT-06865 Level 3 Est. Patient 11:31:58 HAIRSPRING II INSPECTOR Ned Navarrete MD [facility] CPT-74634 Level 3 Est. Patient 16:49:32 CDT Ned Navarrete MD [facility] CPT-15203 Level 4 Est. Patient 14:11:59 HAIRSPRING II INSPECTOR Saskia green MD PhD [facility] CPT-72111 Level 3 Est. Patient 17:34:25 CDT Ned Navarrete MD [facility] CPT-77480 Level 3 Est. Patient 17:34:19 CDT Ned Navarrete MD [facility] CPT-05397 Level 3 Est. Patient 13:46:05 CDT Ned Navarrete MD [facility] CPT-38401 Level 3 Est. Patient 16:55:47 HAIRSPRING II INSPECTOR Ned Navarrete MD [facility] CPT-12522 Level 2 Est. Patient 17:33:08 HAIRSPRING II INSPECTOR Ned Navarrete MD [facility] CPT-70717 Level 3 Est. Patient 16:25:26 HAIRSPRING II INSPECTOR Ned Navarrete MD [facility] Procedures Code Procedure Name Date Entry Date Standard Desc ription CPT-48643 Visit 15:07:16 HAIRSPRING II INSPECTOR CPT-03423 Visit 16:49:41 HAIRSPRING II INSPECTOR CPT-24513 Sono OB limited - XRAY USE ONLY 16:38:01 CS T CPT-82514 Sono OB comp > 14 weeks - XRAY USE ONLY 17:00:59 HAIRSPRING II INSPECTOR CPT-64692 UA w micro - LAB USE ONLY 16:59:38 CDT 2015 CPT-92731 TSH - LAB USE ONLY 16:59:38 CDT CPT-96090 Venipuncture Draw Fee 16:59:38 CDT CPT-83864 Spec Collection and Handling Fee 14:01:24 C DT CPT-19834 Visit 14:01:24 CDT CPT-033 [facility] Med Screen 14:03:18 CDT CPT-033 [facility] Med Screen 11:04:57 CDT CPT-033 [facility] Med Screen 10:29:44 CDT CPT-19457 Administration 2+ single or combination vaccines inc oral 14:02:47 HAIRSPRING II INSPECTOR CPT-76027 Administration single or combination vac cine inc oral 14:02:47 HAIRSPRING II INSPECTOR CPT-23794 Hepatitis A ped/adol 2 dose schedule 14:02:47 HAIRSPRING II INSPECTOR CPT-84401 Gardasil 14:02:47 HAIRSPRING II INSPECTOR CPT-25724 Administration single or combination vac cine inc oral 11:40:38 HAIRSPRING II INSPECTOR CPT-41895 Gardasil 11:40:38 HAIRSPRING II INSPECTOR CPT-47657 Administration single or combination vac cine inc oral 09:45:00 CDT CPT-13255 Influenza Preservative Free split virus >age 3 09:45:00 CDT CPT-68350 Venipuncture Draw Fee 07:59:02 CDT
--- OUTSIDE RECORDS SUMMARY | 2019-10-10 20:25 | XMS REPORT | Clinical Summary ---
Author Author Admin, Son Rodriguez [facility] Address Unknown Phone Unavailable Allergies, Adverse Reactions, [...] COSTOCHONDRITIS ICD-733.6 Inactive Saskia Simon MD PhD NASOLACRIMAL DUCT OBSTRUCTION, LEFT ICD-375.56 Inactive Ned Navarrete MD VISUAL CHANGES ICD-368.10 Inactive Ned Prescott MD CONCUSSION WITH NO LOSS OF CONSCIOUSNESS ICD-850.0 Inactive Ned Navarrete MD Gastroenteritis ICD-558.9 Inactive Ned Prescott MD Gastroenteritis Inactive George Frances MD Drug use complicating , second trimester ICD-648.33 Inactive Missy Hayes LRT Methamphetamine abuse ICD-305.70 Inactive Andreea Hayes LRT 20 weeks gestation of ICD-V28.9 Inac tive Missy Hayes LRT 22 weeks gestation of ICD-V28.9 Inac clarence Missy Hayes LRT SINUSITIS, ACUTE ICD-461.9 Inactive Ned pérez MD Pharyngitis, acute ICD-462 Inactive Ned Navarrete MD Medication List Medication Instructions Start Date Stop Date Generic Name NDC Status Provider Patient Instruction PREDNISONE 20 MG TABS Take 2 daily for 3 days and then 1 herman ly for 3 days PREDNISONE 72812306351 No Longer Active Ned pérez MD Active CEPHALEXIN 500 MG ORAL CAPS CEPHALEXIN 21360895222 No Longer Active Ned Navarrete MD Active LATUDA 20 MG ORAL TABS LURASIDONE HCL 5112905 0230 Active Breanne Madl BULB PACKER Active LORATADINE 10 MG TABS 1 tablet by mouth daily L ORATADINE 82869392543 No Longer Active Breanne Madl BULB PACKER Active HYDROXYZINE HCL 25 MG TABS Take 1-2 tablets daily 2015 HYDROXYZINE HCL 63559332075 No Longer Active Breanne Madl BULB PACKER Active ORTHO TRI-CYCLEN (28) 0.18/0.215/0.25 MG-35 MCG TABS 1 daily NORGESTIM-ETH ESTRAD TRIPHASIC 73995242664 No Longer Active Breanne Madl BULB PACKER Active CLARITIN 10 MG TAB 1 tablet by mouth daily as needed for itchy r khari LORATADINE 38418260864 No Longer Active Ned Navarrete MD Active AUGMENTIN 875-125 MG TAB 1 po BID x 10 days with food AMOXICILLIN-POT CLAVULANATE 55608335292 No Longer Active Toni Washington DO Active ORTHO TRI-CYCLEN (28) 0.18/0.215/0.25 MG-35 MCG TABS 1 daily NORGESTIM-ETH ESTRAD TRIPHASIC 62395573163 No Longer Active Ned Navarrete MD Active ZOFRAN ODT 4 MG TBDP 1 po q6hr PRN Nausea ONDAN SETRON 67504428796 No Longer Active Ned Navarrete MD Active [facility] MEL[facility] 3 MG TABS Take 1 tablet at bedtime. 2013 MELATONIN 66599200367 No Longer Active Ned Navarrete MD Activ e BIOTIN 1000 MCG TABS Take 2 tablets daily BIOTI N 46762362718 No Longer Active Ned Navarrete MD Active OMEPRAZOLE 20 MG CPDR 1 tablet by mouth daily O MEPRAZOLE 33573425171 No Longer Active Mariana Moses APRN Active LATUDA 80 MG TABS 1 tablet daily LURASIDONE HCL 97164509917 No Longer Active Mariana Moses APRN Active ZOVIRAX 400 MG TABS Take 1 tablet every 8 hours as needed 2 ACYCLOVIR 33189680338 No Longer Active Ned Navarrete MD Activ e ZITHROMAX Z-CHACE 250 MG TABS 2 today, then 1 daily for 4 days 201 10/06/11 AZITHROMYCIN 78117481014 No Longer Active Ned Navarrete MD Active TOPAMAX 100 MG TABS 1 tablet daily TOPIRAMATE 54 270616595 No Longer Active Ned Navarrete MD Active AMOXICILLIN 500 MG CAPS 2 po BID x 10 days AMOX ICILLIN 51193741630 No Longer Active Saskia Simon MD PhD Active NAPROSYN 375 MG TAB 1 twice a day as needed for chest pain 04/01 NAPROXEN 88915594346 No Longer Active Saskia Simon MD PhD Active HYDROCORTISONE 2.5 % EXT CREA Apply three times a day to aff ected area HYDROCORTISONE 65842752441 No Longer Active Ned Navarrete MD Active TOPIRAMATE 50 MG TABS 1 QD TOPIRAMATE 38947558543 No Longer Active Ned Navarrete MD Active FANAPT 6 MG TABS 1 BID ILOPERIDONE 40672316723 No L onger Active Ned Navarrete MD Active CIPROFLOXACIN HCL 0.3 % SOLN 1 drop in right eye every 2 hours for 2 days, then 1 drop four times a day CIPROFLOXACIN HCL 23883470738 No Longer Active Ned Navarrete MD Active LORATADINE 10 MG TABS 1 tablet by mouth daily L ORATADINE 68523157714 No Longer Active Ned Navarrete MD Active RANITIDINE HCL 150 MG CAPS 1 twice a day RANITI DINE HCL 45846661153 No Longer Active Ned Navarrete MD Active RANITIDINE HCL 150 MG CAPS 1 twice a day RANITIDINE HCL 150 MG CAPS 901444 RANITIDINE HCL Inactive LORATADINE 10 MG TABS 1 tablet by mouth daily LORATADINE 10 MG TABS 522486 LORATADINE Inactive CIPROFLOXACIN HCL 0.3 % SOLN 1 drop in right eye every 2 hours for 2 days, then 1 drop four times a day CIPROFLOXACIN HCL 0.3 % SOLN 294543 CIPROFLOXACIN HCL Inactive FANAPT 6 MG TABS 1 BID FANAPT 6 MG TABS ILO PERIDONE Inactive TOPIRAMATE 50 MG TABS 1 QD TOPIRAMATE 50 MG TABS 1 99210 TOPIRAMATE Inactive HYDROCORTISONE 2.5 % EXT CREA Apply three times a day to aff ected area HYDROCORTISONE 2.5 % EXT CREA 483643 HYDROCORTIS ONE Inactive NAPROSYN 375 MG TAB 1 twice a day as needed for chest pain 04/01 NAPROSYN 375 MG TAB NAPROXEN Inactive TOPAMAX 100 MG TABS 1 tablet daily TOPAMAX 100 MG TABS 607327 TOPIRAMATE Inactive ZOVIRAX 400 MG TABS Take 1 tablet every 8 hours as needed ZOVIRAX 400 MG TABS 19720728 ACYCLOVIR Inactive LATUDA 80 MG TABS 1 tablet daily LATUDA 80 MG TA BS LURASIDONE HCL Inactive OMEPRAZOLE 20 MG CPDR 1 tablet by mouth daily OMEPRAZOLE 20 MG CPDR 840287 OMEPRAZOLE Inactive BIOTIN 1000 MCG TABS Take 2 tablets daily BIOTIN 1000 MCG TABS 583084 BIOTIN Inactive [facility] 3 MG TABS Take 1 tablet at bedtime. 2013 [facility] M[facility] 3 MG TABS 967031 MELATONIN Inactive ZOFRAN ODT 4 MG TBDP 1 po q6hr PRN Nausea ZOFRAN ODT 4 MG TBDP 761810 ONDANSETRON Inactive ORTHO TRI-CYCLEN (28) 0.18/0.215/0.25 MG-35 MCG TABS 1 daily ORTHO TRI-CYCLEN (28) 0.18/0.215/0.25 MG-35 MCG TABS 660587 NORGESTIM-ETH ESTRAD TRIPHASIC Inactive CLARITIN 10 MG TAB 1 tablet by mouth daily as needed for itchy r khari CLARITIN 10 MG TAB 105579 LORATADINE Inactive ORTHO TRI-CYCLEN (28) 0.18/0.215/0.25 MG-35 MCG TABS 1 daily ORTHO TRI-CYCLEN (28) 0.18/0.215/0.25 MG-35 MCG TABS 302724 NORGESTIM-ETH ESTRAD TRIPHASIC Inactive HYDROXYZINE HCL 25 MG TABS Take 1-2 tablets daily 2015 HYDROXYZINE HCL 25 MG TABS 457064 HYDROXYZINE HCL Inactive LORATADINE 10 MG TABS 1 tablet by mouth daily LORATADINE 10 MG TABS 132326 LORATADINE Inactive CEPHALEXIN 500 MG ORAL CAPS CEPHALEX IN 500 MG ORAL CAPS 281753 CEPHALEXIN Inactive PREDNISONE 20 MG TABS Take 2 daily for 3 days and then 1 herman ly for 3 days PREDNISONE 20 MG TABS 611739 PREDNISONE Inacti ve AMOXICILLIN 500 MG CAPS 2 po BID x 10 days AMOXICILLIN 500 MG CAPS 257945 AMOXICILLIN Inactive ZITHROMAX Z-CHACE 250 MG TABS 2 today, then 1 daily for 4 days 201 10/06/11 ZITHROMAX Z-CHACE 250 MG TABS 8569208 AZITHROMYCIN Inac tive AUGMENTIN 875-125 MG TAB 1 po BID x 10 days with food AUGMENTIN 875-125 MG TAB 716587 AMOXICILLIN-POT CLAVULANATE Inactiv e Advance Directives Directive [...] 18 yo)) Fluzone preservative free (>3 yrs.) [[id number]] Influenza, seasonal, injectable, preservative free MPSV4 (meningococcal polysaccharide vaccination) Menactra meningococcal polysaccharide vaccine (MPSV4) hepatitis A immunization #1 Havrix-Pedi hepa titis A vaccine, unspecified formulation Adacel (Tetanus, reduced Diphtheria, and acellular Per tussis Immunization) Adacel [[id number]] tetanus toxoid, reduced diph theria toxoid, and [...] 11 .0-15.0 platelet count 210 THOUSAND/UL 10*3/mm3 362-154 8627/11/02 mean platelet volume 10.3 fL 7.5-11.5 Lab [...] N Encounters Code Encounter Date Provider Facility CPT-76493 Level 3 Est. Patient 15:35:51 SALES MANAGER Ned Navarrete MD [facility] CPT-82430 Level 2 Est. Patient 12:43:40 CDT Ned Navarrete MD [facility] CPT-49881 Level 3 Est. Patient 14:38:48 CDT Toni duque DO [facility] CPT-73627 Level 3 Est. Patient 09:02:58 SALES MANAGER George paulson MD [facility] CPT-61000 Level 3 Est. Patient 17:42:32 CDT Ned Navarrete MD [facility] CPT-75570 Level 3 Est. Patient 11:04:31 SALES MANAGER Mariana Torrez APRN [facility] CPT-42845 Level 4 Est. Patient 12:27:05 SALES MANAGER Ned Navarrete MD [facility] CPT-80296 Level 3 Est. Patient 11:31:58 SALES MANAGER Ned Navarrete MD [facility] CPT-82908 Level 3 Est. Patient 16:49:32 CDT Ned Navarrete MD [facility] CPT-51684 Level 4 Est. Patient 14:11:59 SALES MANAGER Saskia green MD PhD [facility] CPT-00579 Level 3 Est. Patient 17:34:25 CDT Ned Navarrete MD [facility] CPT-73572 Level 3 Est. Patient 17:34:19 CDT Ned Navarrete MD [facility] CPT-66449 Level 3 Est. Patient 13:46:05 CDT Ned Navarrete MD [facility] CPT-37532 Level 3 Est. Patient 16:55:47 SALES MANAGER Ned Navarrete MD [facility] CPT-72060 Level 2 Est. Patient 17:33:08 SALES MANAGER Ned Navarrete MD [facility] CPT-97238 Level 3 Est. Patient 16:25:26 SALES MANAGER Ned Navarrete MD [facility] Procedures Code Procedure Name Date Entry Date Standard Desc ription CPT-67127 Visit 15:07:16 SALES MANAGER CPT-91006 Visit 16:49:41 SALES MANAGER CPT-16710 Sono OB limited - XRAY USE ONLY 16:38:01 CS T CPT-66746 Sono OB comp > 14 weeks - XRAY USE ONLY 17:00:59 SALES MANAGER CPT-32849 UA w micro - LAB USE ONLY 16:59:38 CDT 2015 CPT-43184 TSH - LAB USE ONLY 16:59:38 CDT CPT-42855 Venipuncture Draw Fee 16:59:38 CDT CPT-01579 Spec Collection and Handling Fee 14:01:24 C DT CPT-87585 Visit 14:01:24 CDT CPT-033 [facility] Med Screen 14:03:18 CDT CPT-033 [facility] Med Screen 11:04:57 CDT CPT-033 [facility] Med Screen 10:29:44 CDT CPT-52922 Administration 2+ single or combination vaccines inc oral 14:02:47 SALES MANAGER CPT-05170 Administration single or combination vac cine inc oral 14:02:47 SALES MANAGER CPT-25116 Hepatitis A ped/adol 2 dose schedule 14:02:47 SALES MANAGER CPT-46437 Gardasil 14:02:47 SALES MANAGER CPT-37562 Administration single or combination vac cine inc oral 11:40:38 SALES MANAGER CPT-60995 Gardasil 11:40:38 SALES MANAGER CPT-14761 Administration single or combination vac cine inc oral 09:45:00 CDT CPT-63313 Influenza Preservative Free split virus >age 3 09:45:00 CDT CPT-09831 Venipuncture Draw Fee 07:59:02 CDT
--- OUTSIDE RECORDS SUMMARY | 2019-10-10 20:25 | XMS REPORT | Clinical Summary ---
Author Author Beka, Son Rodriguez [facility] Address Unknown Phone Unavailable Allergies, Adverse [...] LOSS OF CONSCIOUSNESS 850.0 Resolv ed Ned Naavrrete MD Concussion with no loss of consciousness [...] specified diseases of hair and hair follicles WEIGHT GAIN ICD-783.1 Inactive Ned Navarrete MD [...] Generic Name NDC Status Provider Patient Instruction CLARITIN 10 MG TAB 1 tablet by mouth daily as needed for itchy r khari LORATADINE 40183566696 Active Toni Washington DO Active AUGMENTIN 875-125 MG TAB 1 po BID x 10 days with food AMOXICILLIN-POT CLAVULANATE 36636752238 Active Toni Washington DO Active ORTHO TRI-CYCLEN (28) 0.18/0.215/0.25 MG-35 MCG TABS 1 daily 2 NORGESTIM-ETH ESTRAD TRIPHASIC 97094403026 Active Ned Navarrete MD Active ORTHO TRI-CYCLEN (28) 0.18/0.215/0.25 MG-35 MCG TABS 1 daily NORGESTIM-ETH ESTRAD TRIPHASIC 68523061435 No Longer Active Ned Navarrete MD Active ZOFRAN ODT 4 MG TBDP 1 po q6hr PRN Nausea ONDAN SETRON 70104930362 No Longer Active Ned Navarrete MD Active [facility] 3 MG TABS Take 1 tablet at bedtime. 2013 MELATONIN 70954438046 No Longer Active Ned Navarrete MD Activ e BIOTIN 1000 MCG TABS Take 2 tablets daily BIOTI N 06935975116 No Longer Active Ned Navarrete MD Active OMEPRAZOLE 20 MG CPDR 1 tablet by mouth daily O MEPRAZOLE 49419871607 No Longer Active Mariana Moses APRN Active LATUDA 80 MG TABS 1 tablet daily LURASIDONE HCL 11697469917 No Longer Active Mariana Moses APRN Active ZOVIRAX 400 MG TABS Take 1 tablet every 8 hours as needed 2 ACYCLOVIR 02752741841 No Longer Active Ned Navarrete MD Activ e ZITHROMAX Z-CHACE 250 MG TABS 2 today, then 1 daily for 4 days 201 10/06/11 AZITHROMYCIN 53719956080 No Longer Active Ned Navarrete MD Active HYDROXYZINE HCL 25 MG TABS Take 1-2 tablets daily HYDROXYZINE HCL 47440840203 Active Ned Navarrete MD Active TOPAMAX 100 MG TABS 1 tablet daily TOPIRAMATE 54 592187584 No Longer Active Ned Navarrete MD Active AMOXICILLIN 500 MG CAPS 2 po BID x 10 days AMOX ICILLIN 74863386326 No Longer Active Saskia Simon MD PhD Active NAPROSYN 375 MG TAB 1 twice a day as needed for chest pain 04/01 NAPROXEN 97453078333 No Longer Active Saskia Simon MD PhD Active HYDROCORTISONE 2.5 % EXT CREA Apply three times a day to aff ected area HYDROCORTISONE 86938524365 No Longer Active Ned Navarrete MD Active LORATADINE 10 MG TABS 1 tablet by mouth daily L ORATADINE 53291154924 Active Crystal Bowles Active TOPIRAMATE 50 MG TABS 1 QD TOPIRAMATE 89284374227 No Longer Active Ned Navarrete MD Active FANAPT 6 MG TABS 1 BID ILOPERIDONE 97579430988 No L onger Active Ned Navarrete MD Active CIPROFLOXACIN HCL 0.3 % SOLN 1 drop in right eye every 2 hours for 2 days, then 1 drop four times a day CIPROFLOXACIN HCL 56377583484 No Longer Active Ned Navarrete MD Active LORATADINE 10 MG TABS 1 tablet by mouth daily L ORATADINE 03665333096 No Longer Active Ned Navarrete MD Active RANITIDINE HCL 150 MG CAPS 1 twice a day RANITI DINE HCL 89539976785 No Longer Active Ned Navarrete MD Active RANITIDINE HCL 150 MG CAPS 1 twice a day RANITIDINE HCL 150 MG CAPS 373183 RANITIDINE HCL Inactive LORATADINE 10 MG TABS 1 tablet by mouth daily LORATADINE 10 MG TABS 530808 LORATADINE Inactive CIPROFLOXACIN HCL 0.3 % SOLN 1 drop in right eye every 2 hours for 2 days, then 1 drop four times a day CIPROFLOXACIN HCL 0.3 % SOLN 172036 CIPROFLOXACIN HCL Inactive FANAPT 6 MG TABS 1 BID FANAPT 6 MG TABS ILO PERIDONE Inactive TOPIRAMATE 50 MG TABS 1 QD TOPIRAMATE 50 MG TABS 1 49886 TOPIRAMATE Inactive HYDROCORTISONE 2.5 % EXT CREA Apply three times a day to aff ected area HYDROCORTISONE 2.5 % EXT CREA 149939 HYDROCORTIS ONE Inactive NAPROSYN 375 MG TAB 1 twice a day as needed for chest pain 04/01 NAPROSYN 375 MG TAB NAPROXEN Inactive TOPAMAX 100 MG TABS 1 tablet daily TOPAMAX 100 MG TABS 632536 TOPIRAMATE Inactive ZOVIRAX 400 MG TABS Take 1 tablet every 8 hours as needed ZOVIRAX 400 MG TABS 19720728 ACYCLOVIR Inactive LATUDA 80 MG TABS 1 tablet daily LATUDA 80 MG TA BS LURASIDONE HCL Inactive OMEPRAZOLE 20 MG CPDR 1 tablet by mouth daily OMEPRAZOLE 20 MG CPDR 359707 OMEPRAZOLE Inactive BIOTIN 1000 MCG TABS Take 2 tablets daily BIOTIN 1000 MCG TABS 605860 BIOTIN Inactive [facility] MEL[facility] 3 MG TABS Take 1 tablet at bedtime. 2013 [facility] MEL[facility] 3 MG TABS 769322 MELATONIN Inactive ZOFRAN ODT 4 MG TBDP 1 po q6hr PRN Nausea ZOFRAN ODT 4 MG TBDP 558951 ONDANSETRON Inactive ORTHO TRI-CYCLEN (28) 0.18/0.215/0.25 MG-35 MCG TABS 1 daily ORTHO TRI-CYCLEN (28) 0.18/0.215/0.25 MG-35 MCG TABS 651625 NORGESTIM-ETH ESTRAD TRIPHASIC Inactive AMOXICILLIN 500 MG CAPS 2 po BID x 10 days AMOXICILLIN 500 MG CAPS 664773 AMOXICILLIN Inactive ZITHROMAX Z-CHACE 250 MG TABS 2 today, then 1 daily for 4 days 201 10/06/11 ZITHROMAX Z-CHACE 250 MG TABS 8396235 AZITHROMYCIN Inac tive Advance Directives Directive Description [...] 18 yo)) Fluzone preservative free (>3 yrs.) [[id number]] Influenza, seasonal, injectable, preservative free MPSV4 (meningococcal polysaccharide vaccination) Menactra meningococcal polysaccharide vaccine (MPSV4) hepatitis A immunization #1 Havrix-Pedi hepa titis A vaccine, unspecified formulation Adacel (Tetanus, reduced Diphtheria, and acellular Per tussis Immunization) Adacel [[id number]] tetanus toxoid, reduced diph theria toxoid, and [...] Signs Date Name Value Unit Range Description temperature E&M 99.9 [degF] Body temp erature [...] Measured Encounters Code Encounter Date Provider Facility CPT-99494 Level 3 Est. Patient 14:38:48 CDT Toni duque DO [facility] CPT-30906 Level 3 Est. Patient 09:02:58 TANKER SERVICE ATTENDANT George paulson MD [facility] CPT-17726 Level 3 Est. Patient 17:42:32 CDT Ned Navarrete MD [facility] CPT-63845 Level 3 Est. Patient 11:04:31 TANKER SERVICE ATTENDANT Mariana Torrez APRN [facility] CPT-63703 Level 4 Est. Patient 12:27:05 TANKER SERVICE ATTENDANT Ned Navarrete MD [facility] CPT-21950 Level 3 Est. Patient 11:31:58 TANKER SERVICE ATTENDANT Ned Navarrete MD [facility] CPT-31298 Level 3 Est. Patient 16:49:32 CDT Ned Navarrete MD [facility] CPT-37317 Level 4 Est. Patient 14:11:59 TANKER SERVICE ATTENDANT Saskia green MD PhD [facility] CPT-23642 Level 3 Est. Patient 17:34:25 CDT Ned Navarrete MD [facility] CPT-23494 Level 3 Est. Patient 17:34:19 CDT Ned Navarrete MD [facility] CPT-96036 Level 3 Est. Patient 13:46:05 CDT Ned Navarrete MD [facility] CPT-16509 Level 3 Est. Patient 16:55:47 TANKER SERVICE ATTENDANT Ned Navarrete MD [facility] CPT-12108 Level 2 Est. Patient 17:33:08 TANKER SERVICE ATTENDANT Ned Navarrete MD [facility] CPT-65961 Level 3 Est. Patient 16:25:26 TANKER SERVICE ATTENDANT Ned Navarrete MD [facility] Procedures Code Procedure Name Date Entry Date Standard Desc ription CPT-033 [facility] Med Screen 11:04:57 CDT CPT-033 [facility] Med Screen 10:29:44 CDT CPT-44581 Administration 2+ single or combination vaccines inc oral 14:02:47 TANKER SERVICE ATTENDANT CPT-44109 Administration single or combination vac cine inc oral 14:02:47 TANKER SERVICE ATTENDANT CPT-79330 Hepatitis A ped/adol 2 dose schedule 14:02:47 TANKER SERVICE ATTENDANT CPT-82753 Gardasil 14:02:47 TANKER SERVICE ATTENDANT CPT-72483 Administration single or combination vac cine inc oral 11:40:38 TANKER SERVICE ATTENDANT CPT-99476 Gardasil 11:40:38 TANKER SERVICE ATTENDANT CPT-25329 Administration single or combination vac cine inc oral 09:45:00 CDT CPT-11818 Influenza Preservative Free split virus >age 3 09:45:00 CDT CPT-60489 Venipuncture Draw Fee 07:59:02 CDT
--- OUTSIDE RECORDS SUMMARY | 2019-10-10 20:26 | XMS REPORT | Clinical Summary ---
Author Author Admin, Son Rodriguez [facility] Address Unknown Phone Unavailable Allergies, Adverse Reactions, [...] condition or complication Methamphetamine [facility] 305.70 [facility] Amphetamine or related acting [...] [facility] Methamphetamine abuse ICD-305.70 Inactive Andreea ivcenteejnnie [facility] 20 weeks gestation of ICD-V28.9 Inac tive Missy [facility] L[facility] 22 weeks gestation of ICD-V28.9 Inac tialexandra [facility] Medication List Medication Instructions Start Date Stop Date Generic Name NDC Status Provider Patient Instruction PREDNISONE 20 MG TABS Take 2 daily for 3 days and then 1 herman ly for 3 days PREDNISONE 62631655078 No Longer Active Ned pérez MD Active CEPHALEXIN 500 MG ORAL CAPS CEPHALEXIN 93108152471 No Longer Active Ned Navarrete MD Active LATUDA 20 MG ORAL TABS LURASIDONE HCL 3308412 0230 Active Breanne Madl RECYCLING SPECIALIST Active LORATADINE 10 MG TABS 1 tablet by mouth daily L ORATADINE 99108180461 No Longer Active Breanne Madl RECYCLING SPECIALIST Active HYDROXYZINE HCL 25 MG TABS Take 1-2 tablets daily 2015 HYDROXYZINE HCL 06606017632 No Longer Active Breanne Madl RECYCLING SPECIALIST Active ORTHO TRI-CYCLEN (28) 0.18/0.215/0.25 MG-35 MCG TABS 1 daily NORGESTIM-ETH ESTRAD TRIPHASIC 24649846064 No Longer Active Breanne Madl RECYCLING SPECIALIST Active CLARITIN 10 MG TAB 1 tablet by mouth daily as needed for itchy r khari LORATADINE 01673492001 No Longer Active Ned Navarrete MD Active AUGMENTIN 875-125 MG TAB 1 po BID x 10 days with food AMOXICILLIN-POT CLAVULANATE 12417129951 No Longer Active Toni Washington DO Active ORTHO TRI-CYCLEN (28) 0.18/0.215/0.25 MG-35 MCG TABS 1 daily NORGESTIM-ETH ESTRAD TRIPHASIC 17280622772 No Longer Active Ned Navarrete MD Active ZOFRAN ODT 4 MG TBDP 1 po q6hr PRN Nausea ONDAN SETRON 11537757504 No Longer Active Ned Navarrete MD Active [facility] MEL[facility] 3 MG TABS Take 1 tablet at bedtime. 2013 MELATONIN 20679725808 No Longer Active Ned Navarrete MD Activ e BIOTIN 1000 MCG TABS Take 2 tablets daily BIOTI N 10823140657 No Longer Active Ned Navarrete MD Active OMEPRAZOLE 20 MG CPDR 1 tablet by mouth daily O MEPRAZOLE 97155006933 No Longer Active Mariana Moses APRN Active LATUDA 80 MG TABS 1 tablet daily LURASIDONE HCL 66764310610 No Longer Active Mariana Moses APRN Active ZOVIRAX 400 MG TABS Take 1 tablet every 8 hours as needed 2 ACYCLOVIR 48664710785 No Longer Active Ned Navarrete MD Activ e ZITHROMAX Z-CHACE 250 MG TABS 2 today, then 1 daily for 4 days 201 10/06/11 AZITHROMYCIN 89230546922 No Longer Active Ned Navarrete MD Active TOPAMAX 100 MG TABS 1 tablet daily TOPIRAMATE 54 130439560 No Longer Active Ned Navarrete MD Active AMOXICILLIN 500 MG CAPS 2 po BID x 10 days AMOX ICILLIN 38287494550 No Longer Active Saskia Simon MD PhD Active NAPROSYN 375 MG TAB 1 twice a day as needed for chest pain 04/01 NAPROXEN 79471836006 No Longer Active Saskia Simon MD PhD Active HYDROCORTISONE 2.5 % EXT CREA Apply three times a day to aff ected area HYDROCORTISONE 93024452906 No Longer Active Ned Navarrete MD Active TOPIRAMATE 50 MG TABS 1 QD TOPIRAMATE 89950299984 No Longer Active Ned Navarrete MD Active FANAPT 6 MG TABS 1 BID ILOPERIDONE 22743208364 No L onger Active Ned Navarrete MD Active CIPROFLOXACIN HCL 0.3 % SOLN 1 drop in right eye every 2 hours for 2 days, then 1 drop four times a day CIPROFLOXACIN HCL 70004807906 No Longer Active Ned Navarrete MD Active LORATADINE 10 MG TABS 1 tablet by mouth daily L ORATADINE 47106323002 No Longer Active Ned Navarrete MD Active RANITIDINE HCL 150 MG CAPS 1 twice a day RANITI DINE HCL 52796375494 No Longer Active Ned Navarrete MD Active RANITIDINE HCL 150 MG CAPS 1 twice a day RANITIDINE HCL 150 MG CAPS 290842 RANITIDINE HCL Inactive LORATADINE 10 MG TABS 1 tablet by mouth daily LORATADINE 10 MG TABS 542590 LORATADINE Inactive CIPROFLOXACIN HCL 0.3 % SOLN 1 drop in right eye every 2 hours for 2 days, then 1 drop four times a day CIPROFLOXACIN HCL 0.3 % SOLN 675323 CIPROFLOXACIN HCL Inactive FANAPT 6 MG TABS 1 BID FANAPT 6 MG TABS ILO PERIDONE Inactive TOPIRAMATE 50 MG TABS 1 QD TOPIRAMATE 50 MG TABS 1 11117 TOPIRAMATE Inactive HYDROCORTISONE 2.5 % EXT CREA Apply three times a day to aff ected area HYDROCORTISONE 2.5 % EXT CREA 220389 HYDROCORTIS ONE Inactive NAPROSYN 375 MG TAB 1 twice a day as needed for chest pain 04/01 NAPROSYN 375 MG TAB NAPROXEN Inactive TOPAMAX 100 MG TABS 1 tablet daily TOPAMAX 100 MG TABS 383863 TOPIRAMATE Inactive ZOVIRAX 400 MG TABS Take 1 tablet every 8 hours as needed 2 ZOVIRAX 400 MG TABS 168942 ACYCLOVIR Inactive LATUDA 80 MG TABS 1 tablet daily LATUDA 80 MG TA BS LURASIDONE HCL Inactive OMEPRAZOLE 20 MG CPDR 1 tablet by mouth daily OMEPRAZOLE 20 MG CPDR 691180 OMEPRAZOLE Inactive BIOTIN 1000 MCG TABS Take 2 tablets daily BIOTIN 1000 MCG TABS 592526 BIOTIN Inactive [facility] 3 MG TABS Take 1 tablet at bedtime. 2013 [facility] M[facility] 3 MG TABS 233159 MELATONIN Inactive ZOFRAN ODT 4 MG TBDP 1 po q6hr PRN Nausea ZOFRAN ODT 4 MG TBDP 549259 ONDANSETRON Inactive ORTHO TRI-CYCLEN (28) 0.18/0.215/0.25 MG-35 MCG TABS 1 daily ORTHO TRI-CYCLEN (28) 0.18/0.215/0.25 MG-35 MCG TABS 464714 NORGESTIM-ETH ESTRAD TRIPHASIC Inactive CLARITIN 10 MG TAB 1 tablet by mouth daily as needed for itchy r khari CLARITIN 10 MG TAB 733144 LORATADINE Inactive ORTHO TRI-CYCLEN (28) 0.18/0.215/0.25 MG-35 MCG TABS 1 daily ORTHO TRI-CYCLEN (28) 0.18/0.215/0.25 MG-35 MCG TABS 559385 NORGESTIM-ETH ESTRAD TRIPHASIC Inactive HYDROXYZINE HCL 25 MG TABS Take 1-2 tablets daily 2015 HYDROXYZINE HCL 25 MG TABS 585094 HYDROXYZINE HCL Inactive LORATADINE 10 MG TABS 1 tablet by mouth daily LORATADINE 10 MG TABS 346132 LORATADINE Inactive CEPHALEXIN 500 MG ORAL CAPS CEPHALEX IN 500 MG ORAL CAPS 928381 CEPHALEXIN Inactive PREDNISONE 20 MG TABS Take 2 daily for 3 days and then 1 herman ly for 3 days PREDNISONE 20 MG TABS 896276 PREDNISONE Inacti ve AMOXICILLIN 500 MG CAPS 2 po BID x 10 days AMOXICILLIN 500 MG CAPS 160304 AMOXICILLIN Inactive ZITHROMAX Z-CHACE 250 MG TABS 2 today, then 1 daily for 4 days 201 10/06/11 ZITHROMAX Z-CAHCE 250 MG TABS 6087465 AZITHROMYCIN Inac tive AUGMENTIN 875-125 MG TAB 1 po BID x 10 days with food AUGMENTIN 875-125 MG TAB 603633 AMOXICILLIN-POT CLAVULANATE Inactiv e Advance Directives Directive [...] 16 yo)) Fluzone preservative free (>3 yrs.) [[id number]] Influenza, seasonal, injectable, preservative free MPSV4 (meningococcal polysaccharide vaccination) Menactra meningococcal polysaccharide vaccine (MPSV4) hepatitis A immunization #1 Havrix-Pedi hepa titis A vaccine, unspecified formulation Adacel (Tetanus, reduced Diphtheria, and acellular Per tussis Immunization) Adacel [[id number]] tetanus toxoid, reduced diph theria toxoid, and [...] 11 .0-15.0 platelet count 210 THOUSAND/UL 10*3/mm3 763-511 5314/11/02 mean platelet volume 10.3 fL 7.5-11.5 Lab [...] N Encounters Code Encounter Date Provider Facility CPT-49294 Level 3 Est. Patient 15:21:38 OLIVIA Pepper [facility] CPT-39436 Level 3 Est. Patient 15:35:51 SPOUTER Ned Navarrete MD [facility]-27014 Level 2 Est. Patient 12:43:40 CDT Ned Navarrete MD [facility]-07727 Level 3 Est. Patient 14:38:48 CDT Toni duque DO [facility] CPT-35035 Level 3 Est. Patient 09:02:58 SPOUTER George paulson MD [facility] CPT-89214 Level 3 Est. Patient 17:42:32 CDT Ned Navarrete MD [facility]-34378 Level 3 Est. Patient 11:04:31 SPOUTER Mariana Torrez [facility] CPT-09506 Level 4 Est. Patient 12:27:05 SPOUTER Ned Navarrete MD [facility]-40980 Level 3 Est. Patient 11:31:58 SPOUTER Ned Navarrete MD [facility] CPT-87983 Level 3 Est. Patient 16:49:32 CDT Ned Navarrete MD [facility]-43222 Level 4 Est. Patient 14:11:59 SPOUTER Saskia green MD, PhD [facility] CPT-48597 Level 3 Est. Patient 17:34:25 CDT Ned Navarrete MD [facility] CPT-76499 Level 3 Est. Patient 17:34:19 CDT Ned Navarrete MD [facility]-04773 Level 3 Est. Patient 13:46:05 CDT Ned Navarrete MD [facility]-48481 Level 3 Est. Patient 16:55:47 SPOUTER Ned Navarrete MD [facility]-47900 Level 2 Est. Patient 17:33:08 SPOUTER Ned Navarrete MD [facility]-37530 Level 3 Est. Patient 16:25:26 SPOUTER Ned Navarrete MD [facility] Procedures Code Procedure Name Date Entry Date Standard Desc ription CPT-14522 Visit 14:52:59 CDT CPT-20693 Visit 15:17:20 CDT CPT-86826 Visit 15:57:29 CDT CPT-90023 First Vx - Ix admin via ID I M or jet injects without counseling by physician 15:53:15 CDT CPT-76915 Boostrix Intramuscular Suspension 5-2.5-18.5 201 01/28/11 15:53:14 CDT CPT-26555 Tdap 7yrs or > 14:41:06 CDT CPT-69435 Visit 17:47:08 CDT CPT-65373 OBGTT 1 - LAB USE ONLY 10:15:57 CDT CPT-05395 Venipuncture Draw Fee 10:15:57 CDT CPT-56366 Visit 15:07:16 SPOUTER CPT-84420 Visit 16:49:41 SPOUTER CPT-70630 Sono OB limited - XRAY USE ONLY 16:38:01 CS T CPT-52802 Sono OB comp > 14 weeks - XRAY USE ONLY 17:00:59 SPOUTER CPT-33084 UA w micro - LAB USE ONLY 16:59:38 CDT 2015 CPT-37169 TSH - LAB USE ONLY 16:59:38 CDT CPT-67382 Venipuncture Draw Fee 16:59:38 CDT CPT-72850 Spec Collection and Handling Fee 14:01:24 C DT CPT-90766 Visit 14:01:24 CDT CPT-033 [facility] Med Screen 14:03:18 CDT CPT-033 [facility] Med Screen 11:04:57 CDT CPT-033 [facility] Med Screen 10:29:44 CDT CPT-87615 Administration 2+ single or combination vaccines inc oral 14:02:47 SPOUTER CPT-79137 Administration single or combination vac cine inc oral 14:02:47 SPOUTER CPT-75372 Hepatitis A ped/adol 2 dose schedule 14:02:47 SPOUTER CPT-10745 Gardasil 14:02:47 SPOUTER CPT-10383 Administration single or combination vac cine inc oral 11:40:38 SPOUTER CPT-35397 Gardasil 11:40:38 SPOUTER CPT-56246 Administration single or combination vac cine inc oral 09:45:00 CDT CPT-91410 Influenza Preservative Free split virus >age 3 09:45:00 CDT CPT-28725 Venipuncture Draw Fee 07:59:02 CDT
--- OUTSIDE RECORDS SUMMARY | 2019-10-10 20:26 | XMS REPORT | Clinical Summary ---
Author Author Admin, Son Chan Organization [employer] Address Unknown Phone Unavailable Allergies, Adverse Reactions, [...] Abdominal pain, epigastric Dizziness 780.4 Active Ned Navrarete MD Dizziness and giddiness Gastroenteritis 558.9 Resolved [...] 1 herman ly for 3 days PREDNISONE 80042298209 No Longer Active Ned pérez MD Active CEPHALEXIN 500 MG ORAL CAPS CEPHALEXIN 90782747628 No Longer Active Ned Navarrete MD Active LATUDA 20 MG ORAL TABS LURASIDONE HCL 5262563 0230 Active Breanne Madl PUMP TENDER Active LORATADINE 10 MG TABS 1 tablet by mouth daily L ORATADINE 30783719335 No Longer Active Breanne Madl PUMP TENDER Active HYDROXYZINE HCL 25 MG TABS Take 1-2 tablets daily 2015 HYDROXYZINE HCL 10892399276 No Longer Active Breanne Madl PUMP TENDER Active ORTHO TRI-CYCLEN (28) 0.18/0.215/0.25 MG-35 MCG TABS 1 daily NORGESTIM-ETH ESTRAD TRIPHASIC 20592753212 No Longer Active Breanne Madl PUMP TENDER Active CLARITIN 10 MG TAB 1 tablet by mouth daily as needed for itchy r khari LORATADINE 17589266293 No Longer Active Ned Navarrete MD Active AUGMENTIN 875-125 MG TAB 1 po BID x 10 days with food AMOXICILLIN-POT CLAVULANATE 66185379921 No Longer Active Toni Washington DO Active ORTHO TRI-CYCLEN (28) 0.18/0.215/0.25 MG-35 MCG TABS 1 daily NORGESTIM-ETH ESTRAD TRIPHASIC 08636560581 No Longer Active Ned Navarrete MD Active ZOFRAN ODT 4 MG TBDP 1 po q6hr PRN Nausea ONDAN SETRON 77161946380 No Longer Active Ned Navarrete MD Active [facility] MEL[facility] 3 MG TABS Take 1 tablet at bedtime. 2013 MELATONIN 61156454904 No Longer Active Ned Navarrete MD Activ e BIOTIN 1000 MCG TABS Take 2 tablets daily BIOTI N 06320514984 No Longer Active Ned Navarrete MD Active OMEPRAZOLE 20 MG CPDR 1 tablet by mouth daily O MEPRAZOLE 96107783527 No Longer Active Mariana Moses APRN Active LATUDA 80 MG TABS 1 tablet daily LURASIDONE HCL 36967906967 No Longer Active Mariana Moses APRN Active ZOVIRAX 400 MG TABS Take 1 tablet every 8 hours as needed 2 ACYCLOVIR 51686668051 No Longer Active Ned Navarrete MD Activ e ZITHROMAX Z-CHACE 250 MG TABS 2 today, then 1 daily for 4 days 201 10/06/11 AZITHROMYCIN 80573181614 No Longer Active Ned Navarrete MD Active TOPAMAX 100 MG TABS 1 tablet daily TOPIRAMATE 54 243754971 No Longer Active Ned Navarrete MD Active AMOXICILLIN 500 MG CAPS 2 po BID x 10 days AMOX ICILLIN 62337592507 No Longer Active Saskia Simon MD PhD Active NAPROSYN 375 MG TAB 1 twice a day as needed for chest pain 04/01 NAPROXEN 09197210177 No Longer Active Saskia Simon MD PhD Active HYDROCORTISONE 2.5 % EXT CREA Apply three times a day to aff ected area HYDROCORTISONE 65486708999 No Longer Active Ned Navarrete MD Active TOPIRAMATE 50 MG TABS 1 QD TOPIRAMATE 75956855961 No Longer Active Ned Navarrete MD Active FANAPT 6 MG TABS 1 BID ILOPERIDONE 71564168499 No L onger Active Ned Navarrete MD Active CIPROFLOXACIN HCL 0.3 % SOLN 1 drop in right eye every 2 hours for 2 days, then 1 drop four times a day CIPROFLOXACIN HCL 05553885435 No Longer Active Ned Navarrete MD Active LORATADINE 10 MG TABS 1 tablet by mouth daily L ORATADINE 58340656706 No Longer Active Ned Navarrete MD Active RANITIDINE HCL 150 MG CAPS 1 twice a day RANITI DINE HCL 98101141241 No Longer Active Ned Navarrete MD Active RANITIDINE HCL 150 MG CAPS 1 twice a day RANITIDINE HCL 150 MG CAPS 308078 RANITIDINE HCL Inactive LORATADINE 10 MG TABS 1 tablet by mouth daily LORATADINE 10 MG TABS 544503 LORATADINE Inactive CIPROFLOXACIN HCL 0.3 % SOLN 1 drop in right eye every 2 hours for 2 days, then 1 drop four times a day CIPROFLOXACIN HCL 0.3 % SOLN 739046 CIPROFLOXACIN HCL Inactive FANAPT 6 MG TABS 1 BID FANAPT 6 MG TABS ILO PERIDONE Inactive TOPIRAMATE 50 MG TABS 1 QD TOPIRAMATE 50 MG TABS 1 86929 TOPIRAMATE Inactive HYDROCORTISONE 2.5 % EXT CREA Apply three times a day to aff ected area HYDROCORTISONE 2.5 % EXT CREA 575722 HYDROCORTIS ONE Inactive NAPROSYN 375 MG TAB 1 twice a day as needed for chest pain 04/01 NAPROSYN 375 MG TAB NAPROXEN Inactive TOPAMAX 100 MG TABS 1 tablet daily TOPAMAX 100 MG TABS 847218 TOPIRAMATE Inactive ZOVIRAX 400 MG TABS Take 1 tablet every 8 hours as needed 2 ZOVIRAX 400 MG TABS 546249 ACYCLOVIR Inactive LATUDA 80 MG TABS 1 tablet daily LATUDA 80 MG TA BS LURASIDONE HCL Inactive OMEPRAZOLE 20 MG CPDR 1 tablet by mouth daily OMEPRAZOLE 20 MG CPDR 609090 OMEPRAZOLE Inactive BIOTIN 1000 MCG TABS Take 2 tablets daily BIOTIN 1000 MCG TABS 899001 BIOTIN Inactive [facility] MEL[facility] 3 MG TABS Take 1 tablet at bedtime. 2013 [facility] MEL[facility] 3 MG TABS 425005 MELATONIN Inactive ZOFRAN ODT 4 MG TBDP 1 po q6hr PRN Nausea ZOFRAN ODT 4 MG TBDP 372137 ONDANSETRON Inactive ORTHO TRI-CYCLEN (28) 0.18/0.215/0.25 MG-35 MCG TABS 1 daily ORTHO TRI-CYCLEN (28) 0.18/0.215/0.25 MG-35 MCG TABS 435193 NORGESTIM-ETH ESTRAD TRIPHASIC Inactive CLARITIN 10 MG TAB 1 tablet by mouth daily as needed for itchy r khari CLARITIN 10 MG TAB 074553 LORATADINE Inactive ORTHO TRI-CYCLEN (28) 0.18/0.215/0.25 MG-35 MCG TABS 1 daily ORTHO TRI-CYCLEN (28) 0.18/0.215/0.25 MG-35 MCG TABS 935301 NORGESTIM-ETH ESTRAD TRIPHASIC Inactive HYDROXYZINE HCL 25 MG TABS Take 1-2 tablets daily 2015 HYDROXYZINE HCL 25 MG TABS 439578 HYDROXYZINE HCL Inactive LORATADINE 10 MG TABS 1 tablet by mouth daily LORATADINE 10 MG TABS 539243 LORATADINE Inactive CEPHALEXIN 500 MG ORAL CAPS CEPHALEX IN 500 MG ORAL CAPS 681290 CEPHALEXIN Inactive PREDNISONE 20 MG TABS Take 2 daily for 3 days and then 1 herman ly for 3 days PREDNISONE 20 MG TABS 898584 PREDNISONE Inacti ve AMOXICILLIN 500 MG CAPS 2 po BID x 10 days AMOXICILLIN 500 MG CAPS 106298 AMOXICILLIN Inactive ZITHROMAX Z-CHACE 250 MG TABS 2 today, then 1 daily for 4 days 201 10/06/11 ZITHROMAX Z-CHACE 250 MG TABS 3091749 AZITHROMYCIN Inac tive AUGMENTIN 875-125 MG TAB 1 po BID x 10 days with food AUGMENTIN 875-125 MG TAB 506201 AMOXICILLIN-POT CLAVULANATE Inactiv e Advance Directives Directive [...] 18 yo)) Fluzone preservative free (>3 yrs.) [WQV280] Influenza, seasonal, injectable, preservative free MPSV4 (meningococcal polysaccharide vaccination) Menactra meningococcal polysaccharide vaccine (MPSV4) hepatitis A immunization #1 Havrix-Pedi hepa titis A vaccine, unspecified formulation Adacel (Tetanus, reduced Diphtheria, and acellular Per tussis Immunization) Adacel [UMF135] tetanus toxoid, reduced diph theria toxoid, and acellular pertussis vaccine, adsorbed influenza immunization (Flu Vax) has been administered 2 Historical influenza virus vaccine, unspecified formulation DPT immunization #5 Historical oral polio vaccine (OPV) #4 Historical csae ovirus vaccine, unspecified formulation MMR (measles, mumps, [...] 11 .0-15.0 platelet count 210 THOUSAND/UL 10*3/mm3 671-869 5893/11/02 mean platelet volume 10.3 fL 7.5-11.5 Lab [...] N Encounters Code Encounter Date Provider Facility CPT-83876 Level 3 Est. Patient 15:21:38 BUTADIENE CONVERTOR OPERATOR Rayan Pepper [facility] CPT-24503 Level 3 Est. Patient 15:35:51 BUTADIENE CONVERTOR OPERATOR Ned Navarrete MD [facility]-42544 Level 2 Est. Patient 12:43:40 CDT Ned Navarrete MD [facility]-64823 Level 3 Est. Patient 14:38:48 CDT Toni duque [facility] CPT-00506 Level 3 Est. Patient 09:02:58 BUTADIENE CONVERTOR OPERATOR George paulson MD [facility] CPT-75993 Level 3 Est. Patient 17:42:32 CDT Ned Navarrete MD [facility]-75143 Level 3 Est. Patient 11:04:31 BUTADIENE CONVERTOR OPERATOR Mariana Torrez [facility] CPT-17591 Level 4 Est. Patient 12:27:05 BUTADIENE CONVERTOR OPERATOR Ned Navarrete MD [facility] CPT-27776 Level 3 Est. Patient 11:31:58 BUTADIENE CONVERTOR OPERATOR Ned Navarrete MD [facility]-73721 Level 3 Est. Patient 16:49:32 CDT Ned Navarrete MD [facility]-60832 Level 4 Est. Patient 14:11:59 BUTADIENE CONVERTOR OPERATOR Saskia green MD PhD [facility] CPT-96302 Level 3 Est. Patient 17:34:25 CDT Ned Navarrete MD [facility] CPT-01416 Level 3 Est. Patient 17:34:19 CDT Ned Navarrete MD [facility]-12189 Level 3 Est. Patient 13:46:05 CDT Ned Navarrete MD [facility]-83638 Level 3 Est. Patient 16:55:47 BUTADIENE CONVERTOR OPERATOR Ned Navarrete MD [facility]-78731 Level 2 Est. Patient 17:33:08 BUTADIENE CONVERTOR OPERATOR Ned Navarrete MD [facility] CPT-20685 Level 3 Est. Patient 16:25:26 BUTADIENE CONVERTOR OPERATOR Ned Navarrete MD [facility] Procedures Code Procedure Name Date Entry Date Standard Desc ription CPT-52132 Visit 17:47:08 CDT CPT-63650 OBGTT 1 - LAB USE ONLY 10:15:57 CDT CPT-75597 Venipuncture Draw Fee 10:15:57 CDT CPT-78334 Visit 15:07:16 BUTADIENE CONVERTOR OPERATOR CPT-11964 Visit 16:49:41 BUTADIENE CONVERTOR OPERATOR CPT-88542 Sono OB limited - XRAY USE ONLY 16:38:01 CS T CPT-20281 Sono OB comp > 14 weeks - XRAY USE ONLY 17:00:59 BUTADIENE CONVERTOR OPERATOR CPT-16281 UA w micro - LAB USE ONLY 16:59:38 CDT 2015 CPT-81603 TSH - LAB USE ONLY 16:59:38 CDT CPT-09464 Venipuncture Draw Fee 16:59:38 CDT CPT-53125 Spec Collection and Handling Fee 14:01:24 C DT CPT-04000 Visit 14:01:24 CDT CPT-033 [facility] Med Screen 14:03:18 CDT CPT-033 [facility] Med Screen 11:04:57 CDT CPT-033 [facility] Med Screen 10:29:44 CDT CPT-24874 Administration 2+ single or combination vaccines inc oral 14:02:47 BUTADIENE CONVERTOR OPERATOR CPT-63333 Administration single or combination vac cine inc oral 14:02:47 BUTADIENE CONVERTOR OPERATOR CPT-84422 Hepatitis A ped/adol 2 dose schedule 14:02:47 BUTADIENE CONVERTOR OPERATOR CPT-54304 Gardasil 14:02:47 BUTADIENE CONVERTOR OPERATOR CPT-91567 Administration single or combination vac cine inc oral 11:40:38 BUTADIENE CONVERTOR OPERATOR CPT-67252 Gardasil 11:40:38 BUTADIENE CONVERTOR OPERATOR CPT-42778 Administration single or combination vac cine inc oral 09:45:00 CDT CPT-69254 Influenza Preservative Free split virus >age 3 09:45:00 CDT CPT-79960 Venipuncture Draw Fee 07:59:02 CDT
--- OUTSIDE RECORDS SUMMARY | 2019-10-10 20:27 | XMS REPORT | Clinical Summary ---
Author Author Admin, Son Rodriguez [facility] Address [...] Ned Navarrete MD Gastroenteritis ICD-558.9 Inactive Ned Presctot MD Gastroenteritis Inactive George Frances MD Drug use complicating , second trimester ICD-648.33 Inactive Missy Hayes LRT Methamphetamine abuse ICD-305.70 Inactive Andreea DAWSONT 20 weeks gestation of ICD-V28.9 Inac tialexandra Hayes LRT 22 weeks gestation of ICD-V28.9 Inac tialexandra Hayes LRT Medication List Medication Instructions Start Date Stop Date Generic Name NDC Status Provider Patient Instruction PREDNISONE 20 MG TABS Take 2 daily for 3 days and then 1 herman ly for 3 days PREDNISONE 05751306806 No Longer Active Ned pérez MD Active CEPHALEXIN 500 MG ORAL CAPS CEPHALEXIN 61836002187 No Longer Active Ned Navarrete MD Active LATUDA 20 MG ORAL TABS LURASIDONE HCL 0602723 0230 Active Breanne Madl DIVER'S TENDER Active LORATADINE 10 MG TABS 1 tablet by mouth daily L ORATADINE 91166864975 No Longer Active Breanne Madl DIVER'S TENDER Active HYDROXYZINE HCL 25 MG TABS Take 1-2 tablets daily 2015 HYDROXYZINE HCL 60176176649 No Longer Active Breanne Madl DIVER'S TENDER Active ORTHO TRI-CYCLEN (28) 0.18/0.215/0.25 MG-35 MCG TABS 1 daily NORGESTIM-ETH ESTRAD TRIPHASIC 38590554668 No Longer Active Breanne Madl DIVER'S TENDER Active CLARITIN 10 MG TAB 1 tablet by mouth daily as needed for itchy r khari LORATADINE 67842196280 No Longer Active Ned Navarrete MD Active AUGMENTIN 875-125 MG TAB 1 po BID x 10 days with food AMOXICILLIN-POT CLAVULANATE 99729986016 No Longer Active Toni Washington DO Active ORTHO TRI-CYCLEN (28) 0.18/0.215/0.25 MG-35 MCG TABS 1 daily NORGESTIM-ETH ESTRAD TRIPHASIC 76861779624 No Longer Active Ned Navarrete MD Active ZOFRAN ODT 4 MG TBDP 1 po q6hr PRN Nausea ONDAN SETRON 57153008567 No Longer Active Ned Navarrete MD Active [facility] MEL[facility] 3 MG TABS Take 1 tablet at bedtime. 2013 MELATONIN 40680355326 No Longer Active Ned Navarrete MD Activ e BIOTIN 1000 MCG TABS Take 2 tablets daily BIOTI N 50970271458 No Longer Active Ned Navarrete MD Active OMEPRAZOLE 20 MG CPDR 1 tablet by mouth daily O MEPRAZOLE 34244967417 No Longer Active Mariana Moses APRN Active LATUDA 80 MG TABS 1 tablet daily LURASIDONE HCL 64888361042 No Longer Active Mariana Moses APRN Active ZOVIRAX 400 MG TABS Take 1 tablet every 8 hours as needed 2 ACYCLOVIR 06174421248 No Longer Active Ned Navarrete MD Activ e ZITHROMAX Z-CHACE 250 MG TABS 2 today, then 1 daily for 4 days 201 10/06/11 AZITHROMYCIN 16631883713 No Longer Active Ned Navarrete MD Active TOPAMAX 100 MG TABS 1 tablet daily TOPIRAMATE 54 449663419 No Longer Active Ned Navarrete MD Active AMOXICILLIN 500 MG CAPS 2 po BID x 10 days AMOX ICILLIN 66023211507 No Longer Active Saskia Simon MD PhD Active NAPROSYN 375 MG TAB 1 twice a day as needed for chest pain 04/01 NAPROXEN 60036723446 No Longer Active Saskia Simon MD PhD Active HYDROCORTISONE 2.5 % EXT CREA Apply three times a day to aff ected area HYDROCORTISONE 51507235060 No Longer Active Ned Navarrete MD Active TOPIRAMATE 50 MG TABS 1 QD TOPIRAMATE 95812432364 No Longer Active Ned Navarrete MD Active FANAPT 6 MG TABS 1 BID ILOPERIDONE 26270650453 No L onger Active Ned Navarrete MD Active CIPROFLOXACIN HCL 0.3 % SOLN 1 drop in right eye every 2 hours for 2 days, then 1 drop four times a day CIPROFLOXACIN HCL 35196668976 No Longer Active Ned Navarrete MD Active LORATADINE 10 MG TABS 1 tablet by mouth daily L ORATADINE 17198232065 No Longer Active Ned Navarrete MD Active RANITIDINE HCL 150 MG CAPS 1 twice a day RANITI DINE HCL 51662768792 No Longer Active Ned Navarrete MD Active RANITIDINE HCL 150 MG CAPS 1 twice a day RANITIDINE HCL 150 MG CAPS 334235 RANITIDINE HCL Inactive LORATADINE 10 MG TABS 1 tablet by mouth daily LORATADINE 10 MG TABS 052254 LORATADINE Inactive CIPROFLOXACIN HCL 0.3 % SOLN 1 drop in right eye every 2 hours for 2 days, then 1 drop four times a day CIPROFLOXACIN HCL 0.3 % SOLN 524218 CIPROFLOXACIN HCL Inactive FANAPT 6 MG TABS 1 BID FANAPT 6 MG TABS ILO PERIDONE Inactive TOPIRAMATE 50 MG TABS 1 QD TOPIRAMATE 50 MG TABS 1 30268 TOPIRAMATE Inactive HYDROCORTISONE 2.5 % EXT CREA Apply three times a day to aff ected area HYDROCORTISONE 2.5 % EXT CREA 966415 HYDROCORTIS ONE Inactive NAPROSYN 375 MG TAB 1 twice a day as needed for chest pain 04/01 NAPROSYN 375 MG TAB NAPROXEN Inactive TOPAMAX 100 MG TABS 1 tablet daily TOPAMAX 100 MG TABS 523775 TOPIRAMATE Inactive ZOVIRAX 400 MG TABS Take 1 tablet every 8 hours as needed ZOVIRAX 400 MG TABS 19720728 ACYCLOVIR Inactive LATUDA 80 MG TABS 1 tablet daily LATUDA 80 MG TA BS LURASIDONE HCL Inactive OMEPRAZOLE 20 MG CPDR 1 tablet by mouth daily OMEPRAZOLE 20 MG CPDR 930059 OMEPRAZOLE Inactive BIOTIN 1000 MCG TABS Take 2 tablets daily BIOTIN 1000 MCG TABS 908272 BIOTIN Inactive [facility] M[facility] 3 MG TABS Take 1 tablet at bedtime. 2013 [facility] M[facility] 3 MG TABS 326657 MELATONIN Inactive ZOFRAN ODT 4 MG TBDP 1 po q6hr PRN Nausea ZOFRAN ODT 4 MG TBDP 544411 ONDANSETRON Inactive ORTHO TRI-CYCLEN (28) 0.18/0.215/0.25 MG-35 MCG TABS 1 daily ORTHO TRI-CYCLEN (28) 0.18/0.215/0.25 MG-35 MCG TABS 388327 NORGESTIM-ETH ESTRAD TRIPHASIC Inactive CLARITIN 10 MG TAB 1 tablet by mouth daily as needed for itchy r khari CLARITIN 10 MG TAB 792847 LORATADINE Inactive ORTHO TRI-CYCLEN (28) 0.18/0.215/0.25 MG-35 MCG TABS 1 daily ORTHO TRI-CYCLEN (28) 0.18/0.215/0.25 MG-35 MCG TABS 633253 NORGESTIM-ETH ESTRAD TRIPHASIC Inactive HYDROXYZINE HCL 25 MG TABS Take 1-2 tablets daily 2015 HYDROXYZINE HCL 25 MG TABS 861730 HYDROXYZINE HCL Inactive LORATADINE 10 MG TABS 1 tablet by mouth daily LORATADINE 10 MG TABS 705939 LORATADINE Inactive CEPHALEXIN 500 MG ORAL CAPS CEPHALEX IN 500 MG ORAL CAPS 997211 CEPHALEXIN Inactive PREDNISONE 20 MG TABS Take 2 daily for 3 days and then 1 herman ly for 3 days PREDNISONE 20 MG TABS 966553 PREDNISONE Inacti ve AMOXICILLIN 500 MG CAPS 2 po BID x 10 days AMOXICILLIN 500 MG CAPS 795173 AMOXICILLIN Inactive ZITHROMAX Z-CHACE 250 MG TABS 2 today, then 1 daily for 4 days 201 10/06/11 ZITHROMAX Z-CHACE 250 MG TABS 3592705 AZITHROMYCIN Inac tive AUGMENTIN 875-125 MG TAB 1 po BID x 10 days with food AUGMENTIN 875-125 MG TAB 840581 AMOXICILLIN-POT CLAVULANATE Inactiv e Advance Directives Directive [...] 16 yo)) Fluzone preservative free (>3 yrs.) [[id number]] Influenza, seasonal, injectable, preservative free MPSV4 (meningococcal polysaccharide vaccination) Menactra meningococcal polysaccharide vaccine (MPSV4) hepatitis A immunization #1 Havrix-Pedi hepa titis A vaccine, unspecified formulation Adacel (Tetanus, reduced Diphtheria, and acellular Per tussis Immunization) Adacel [AJC295] tetanus toxoid, reduced diph theria toxoid, and [...] 11 .0-15.0 platelet count 210 THOUSAND/UL 10*3/mm3 375-345 6071/11/02 mean platelet volume 10.3 fL 7.5-11.5 Lab [...] N Encounters Code Encounter Date Provider Facility CPT-68088 Level 3 Est. Patient 15:35:51 SIEVE GRADER TENDER Ned Navarrete MD [facility] CPT-19926 Level 2 Est. Patient 12:43:40 CDT Ned Navarrete MD [facility] CPT-19153 Level 3 Est. Patient 14:38:48 CDT Toni duque DO [facility] CPT-33645 Level 3 Est. Patient 09:02:58 SIEVE GRADER TENDER George paulson MD [facility] CPT-96952 Level 3 Est. Patient 17:42:32 CDT Ned Navarrete MD [facility] CPT-68512 Level 3 Est. Patient 11:04:31 SIEVE GRADER TENDER Mariana Torrez APRN [facility] CPT-63908 Level 4 Est. Patient 12:27:05 SIEVE GRADER TENDER Ned Navarrete MD [facility] CPT-89745 Level 3 Est. Patient 11:31:58 SIEVE GRADER TENDER Ned Navarrete MD [facility] CPT-48261 Level 3 Est. Patient 16:49:32 CDT Ned Navarrete MD [facility] CPT-33481 Level 4 Est. Patient 14:11:59 SIEVE GRADER TENDER Saskia green MD PhD [facility] CPT-30187 Level 3 Est. Patient 17:34:25 CDT Ned Navarrete MD [facility] CPT-81967 Level 3 Est. Patient 17:34:19 CDT Ned Navarrete MD [facility] CPT-28923 Level 3 Est. Patient 13:46:05 CDT Ned Navarrete MD [facility] CPT-60668 Level 3 Est. Patient 16:55:47 SIEVE GRADER TENDER Ned Navarrete MD [facility] CPT-69324 Level 2 Est. Patient 17:33:08 SIEVE GRADER TENDER Ned Navarrete MD [facility] CPT-23520 Level 3 Est. Patient 16:25:26 SIEVE GRADER TENDER Ned Navarrete MD [facility] Procedures Code Procedure Name Date Entry Date Standard Desc ription CPT-15622 Visit 15:07:16 SIEVE GRADER TENDER CPT-48999 Visit 16:49:41 SIEVE GRADER TENDER CPT-80646 Sono OB limited - XRAY USE ONLY 16:38:01 CS T CPT-29697 Sono OB comp > 14 weeks - XRAY USE ONLY 17:00:59 SIEVE GRADER TENDER CPT-53135 UA w micro - LAB USE ONLY 16:59:38 CDT 2015 CPT-91324 TSH - LAB USE ONLY 16:59:38 CDT CPT-31338 Venipuncture Draw Fee 16:59:38 CDT CPT-89342 Spec Collection and Handling Fee 14:01:24 C DT CPT-37174 Visit 14:01:24 CDT CPT-033 [facility] Med Screen 14:03:18 CDT CPT-033 [facility] Med Screen 11:04:57 CDT CPT-033 [facility] Med Screen 10:29:44 CDT CPT-15807 Administration 2+ single or combination vaccines inc oral 14:02:47 SIEVE GRADER TENDER CPT-23046 Administration single or combination vac cine inc oral 14:02:47 SIEVE GRADER TENDER CPT-77850 Hepatitis A ped/adol 2 dose schedule 14:02:47 SIEVE GRADER TENDER CPT-44807 Gardasil 14:02:47 SIEVE GRADER TENDER CPT-32208 Administration single or combination vac cine inc oral 11:40:38 SIEVE GRADER TENDER CPT-91704 Gardasil 11:40:38 SIEVE GRADER TENDER CPT-00343 Administration single or combination vac cine inc oral 09:45:00 CDT CPT-14471 Influenza Preservative Free split virus >age 3 09:45:00 CDT CPT-60924 Venipuncture Draw Fee 07:59:02 CDT
--- OUTSIDE RECORDS SUMMARY | 2019-10-10 20:27 | XMS REPORT | Clinical Summary ---
Author Author Admin, Son Rodriguez [facility] Address Unknown Phone Unavailable Allergies, Adverse [...] noninfectious gastroenteritis and colitis Folliculitis 704.8 Active Toin Washington DO Other specified diseases of hair [...] LATUDA 20 MG ORAL TABS LURASIDONE HCL 1300848 0230 Active Breanne Madl FREIGHT RATE SPECIALIST Active CEPHALEXIN 500 MG ORAL CAPS CEPHALEXIN 294079 85133 Active Breanne Madl FREIGHT RATE SPECIALIST Active LORATADINE 10 MG TABS 1 tablet by mouth daily L ORATADINE 57173508671 No Longer Active Breanne Madl FREIGHT RATE SPECIALIST Active HYDROXYZINE HCL 25 MG TABS Take 1-2 tablets daily 2015 HYDROXYZINE HCL 95075231674 No Longer Active Breanne Madl FREIGHT RATE SPECIALIST Active ORTHO TRI-CYCLEN (28) 0.18/0.215/0.25 MG-35 MCG TABS 1 daily NORGESTIM-ETH ESTRAD TRIPHASIC 43142054159 No Longer Active Breanne Madl FREIGHT RATE SPECIALIST Active CLARITIN 10 MG TAB 1 tablet by mouth daily as needed for itchy r khari LORATADINE 48713737912 No Longer Active Ned Navarrete MD Active AUGMENTIN 875-125 MG TAB 1 po BID x 10 days with food AMOXICILLIN-POT CLAVULANATE 45589963857 No Longer Active Toni Washington DO Active ORTHO TRI-CYCLEN (28) 0.18/0.215/0.25 MG-35 MCG TABS 1 daily NORGESTIM-ETH ESTRAD TRIPHASIC 94900738044 No Longer Active Ned Navarrete MD Active ZOFRAN ODT 4 MG TBDP 1 po q6hr PRN Nausea ONDAN SETRON 35471831541 No Longer Active Ned Navarrete MD Active [facility] M[facility] 3 MG TABS Take 1 tablet at bedtime. 2013 MELATONIN 34902285339 No Longer Active Ned Navarrete MD Activ e BIOTIN 1000 MCG TABS Take 2 tablets daily BIOTI N 69168562204 No Longer Active Ned Navarrete MD Active OMEPRAZOLE 20 MG CPDR 1 tablet by mouth daily O MEPRAZOLE 18018839934 No Longer Active Mariana Josué AIRPLANE FLIGHT ATTENDANT SUPERVISOR Active LATUDA 80 MG TABS 1 tablet daily LURASIDONE HCL 02739869434 No Longer Active Mariana Moses APRN Active ZOVIRAX 400 MG TABS Take 1 tablet every 8 hours as needed 2 ACYCLOVIR 37696007923 No Longer Active Ned Navarrete MD Activ e ZITHROMAX Z-CHACE 250 MG TABS 2 today, then 1 daily for 4 days 201 10/06/11 AZITHROMYCIN 51445419488 No Longer Active Ned Navarrete MD Active TOPAMAX 100 MG TABS 1 tablet daily TOPIRAMATE 54 236222897 No Longer Active Ned Navarrete MD Active AMOXICILLIN 500 MG CAPS 2 po BID x 10 days AMOX ICILLIN 47655602600 No Longer Active Saskia Simon MD PhD Active NAPROSYN 375 MG TAB 1 twice a day as needed for chest pain 04/01 NAPROXEN 90004345737 No Longer Active Saskia Simon MD PhD Active HYDROCORTISONE 2.5 % EXT CREA Apply three times a day to aff ected area HYDROCORTISONE 87503565445 No Longer Active Ned Navarrete MD Active TOPIRAMATE 50 MG TABS 1 QD TOPIRAMATE 99722125560 No Longer Active Ned Navarrete MD Active FANAPT 6 MG TABS 1 BID ILOPERIDONE 51036826233 No L onger Active Ned Navarrete MD Active CIPROFLOXACIN HCL 0.3 % SOLN 1 drop in right eye every 2 hours for 2 days, then 1 drop four times a day CIPROFLOXACIN HCL 43473302150 No Longer Active Ned Navarrete MD Active LORATADINE 10 MG TABS 1 tablet by mouth daily L ORATADINE 06670456905 No Longer Active Ned Navarrete MD Active RANITIDINE HCL 150 MG CAPS 1 twice a day RANITI DINE HCL 79715586374 No Longer Active Ned Navarrete MD Active RANITIDINE HCL 150 MG CAPS 1 twice a day RANITIDINE HCL 150 MG CAPS 567433 RANITIDINE HCL Inactive LORATADINE 10 MG TABS 1 tablet by mouth daily LORATADINE 10 MG TABS 750500 LORATADINE Inactive CIPROFLOXACIN HCL 0.3 % SOLN 1 drop in right eye every 2 hours for 2 days, then 1 drop four times a day CIPROFLOXACIN HCL 0.3 % SOLN 918813 CIPROFLOXACIN HCL Inactive FANAPT 6 MG TABS 1 BID FANAPT 6 MG TABS ILO PERIDONE Inactive TOPIRAMATE 50 MG TABS 1 QD TOPIRAMATE 50 MG TABS 1 64114 TOPIRAMATE Inactive HYDROCORTISONE 2.5 % EXT CREA Apply three times a day to aff ected area HYDROCORTISONE 2.5 % EXT CREA 024007 HYDROCORTIS ONE Inactive NAPROSYN 375 MG TAB 1 twice a day as needed for chest pain 04/01 NAPROSYN 375 MG TAB NAPROXEN Inactive TOPAMAX 100 MG TABS 1 tablet daily TOPAMAX 100 MG TABS 775559 TOPIRAMATE Inactive ZOVIRAX 400 MG TABS Take 1 tablet every 8 hours as needed 2 ZOVIRAX 400 MG TABS 040425 ACYCLOVIR Inactive LATUDA 80 MG TABS 1 tablet daily LATUDA 80 MG TA BS LURASIDONE HCL Inactive OMEPRAZOLE 20 MG CPDR 1 tablet by mouth daily OMEPRAZOLE 20 MG CPDR 660855 OMEPRAZOLE Inactive BIOTIN 1000 MCG TABS Take 2 tablets daily BIOTIN 1000 MCG TABS 642663 BIOTIN Inactive [facility] 3 MG TABS Take 1 tablet at bedtime. 2013 [facility] MEL[facility] 3 MG TABS 659773 MELATONIN Inactive ZOFRAN ODT 4 MG TBDP 1 po q6hr PRN Nausea ZOFRAN ODT 4 MG TBDP 218811 ONDANSETRON Inactive ORTHO TRI-CYCLEN (28) 0.18/0.215/0.25 MG-35 MCG TABS 1 daily ORTHO TRI-CYCLEN (28) 0.18/0.215/0.25 MG-35 MCG TABS 529250 NORGESTIM-ETH ESTRAD TRIPHASIC Inactive CLARITIN 10 MG TAB 1 tablet by mouth daily as needed for itchy r khari CLARITIN 10 MG TAB 929958 LORATADINE Inactive ORTHO TRI-CYCLEN (28) 0.18/0.215/0.25 MG-35 MCG TABS 1 daily ORTHO TRI-CYCLEN (28) 0.18/0.215/0.25 MG-35 MCG TABS 283438 NORGESTIM-ETH ESTRAD TRIPHASIC Inactive HYDROXYZINE HCL 25 MG TABS Take 1-2 tablets daily 2015 HYDROXYZINE HCL 25 MG TABS 904833 HYDROXYZINE HCL Inactive LORATADINE 10 MG TABS 1 tablet by mouth daily LORATADINE 10 MG TABS 260563 LORATADINE Inactive AMOXICILLIN 500 MG CAPS 2 po BID x 10 days AMOXICILLIN 500 MG CAPS 102853 AMOXICILLIN Inactive ZITHROMAX Z-CHACE 250 MG TABS 2 today, then 1 daily for 4 days 201 10/06/11 ZITHROMAX Z-CHACE 250 MG TABS 8632454 AZITHROMYCIN Inac tive AUGMENTIN 875-125 MG TAB 1 po BID x 10 days with food AUGMENTIN 875-125 MG TAB 410758 AMOXICILLIN-POT CLAVULANATE Inactiv e Advance Directives Directive [...] 18 yo)) Fluzone preservative free (>3 yrs.) [[id number]] Influenza, seasonal, injectable, preservative free MPSV4 (meningococcal polysaccharide vaccination) Menactra meningococcal polysaccharide vaccine (MPSV4) hepatitis A immunization #1 Havrix-Pedi hepa titis A vaccine, unspecified formulation Adacel (Tetanus, reduced Diphtheria, and acellular Per tussis Immunization) Adacel [[id number]] tetanus toxoid, reduced diph theria toxoid, and [...] 11 .0-15.0 platelet count 210 THOUSAND/UL 10*3/mm3 159-709 2366/11/02 mean platelet volume 10.3 fL 7.5-11.5 Lab [...] ative Encounters Code Encounter Date Provider Facility CPT-95783 Level 2 Est. Patient 12:43:40 CDT Ned Navarrete MD [facility] CPT-82467 Level 3 Est. Patient 14:38:48 CDT Toni duque DO [facility] CPT-19928 Level 3 Est. Patient 09:02:58 PROCUREMENT SERVICES MANAGER [facility] CPT-67100 Level 3 Est. Patient 17:42:32 CDT eNd Navarrete MD [facility] CPT-58869 Level 3 Est. Patient 11:04:31 PROCUREMENT SERVICES MANAGER Mariana Torrez APRN [facility] CPT-43963 Level 4 Est. Patient 12:27:05 PROCUREMENT SERVICES MANAGER Ned Navarrete [facility] CPT-48964 Level 3 Est. Patient 11:31:58 PROCUREMENT SERVICES MANAGER Ned Navarrete [facility] CPT-54906 Level 3 Est. Patient 16:49:32 CDT Ned Navarrete MD [facility] CPT-07598 Level 4 Est. Patient 14:11:59 PROCUREMENT SERVICES MANAGER Saskia green MD PhD [facility] CPT-00426 Level 3 Est. Patient 17:34:25 CDT Ned Navarrete MD [facility] CPT-05957 Level 3 Est. Patient 17:34:19 CDT Ned Navarrete MD [facility] CPT-09503 Level 3 Est. Patient 13:46:05 CDT Ned Navarrete MD [facility] CPT-91298 Level 3 Est. Patient 16:55:47 PROCUREMENT SERVICES MANAGER Ned Navarrete MD [facility] CPT-69655 Level 2 Est. Patient 17:33:08 PROCUREMENT SERVICES MANAGER Ned Navarrete MD [facility] CPT-93283 Level 3 Est. Patient 16:25:26 PROCUREMENT SERVICES MANAGER Ned Navarrete MD [facility] Procedures Code Procedure Name Date Entry Date Standard Desc ription CPT-76720 Visit 16:49:41 PROCUREMENT SERVICES MANAGER CPT-91440 Sono OB limited - XRAY USE ONLY 16:38:01 CS T CPT-70664 Sono OB comp > 14 weeks - XRAY USE ONLY 17:00:59 PROCUREMENT SERVICES MANAGER CPT-83513 UA w micro - LAB USE ONLY 16:59:38 CDT 2015 CPT-69443 TSH - LAB USE ONLY 16:59:38 CDT CPT-78501 Venipuncture Draw Fee 16:59:38 CDT CPT-12054 Spec Collection and Handling Fee 14:01:24 C DT CPT-08611 Visit 14:01:24 CDT CPT-033 [facility] Med Screen 14:03:18 CDT CPT-033 [facility] Med Screen 11:04:57 CDT CPT-033 [facility] Med Screen 10:29:44 CDT CPT-62584 Administration 2+ single or combination vaccines inc oral 14:02:47 PROCUREMENT SERVICES MANAGER CPT-74669 Administration single or combination vac cine inc oral 14:02:47 PROCUREMENT SERVICES MANAGER CPT-03889 Hepatitis A ped/adol 2 dose schedule 14:02:47 PROCUREMENT SERVICES MANAGER CPT-13041 Gardasil 14:02:47 PROCUREMENT SERVICES MANAGER CPT-01445 Administration single or combination vac cine inc oral 11:40:38 PROCUREMENT SERVICES MANAGER CPT-90070 Gardasil 11:40:38 PROCUREMENT SERVICES MANAGER CPT-84366 Administration single or combination vac cine inc oral 09:45:00 CDT CPT-24535 Influenza Preservative Free split virus >age 3 09:45:00 CDT CPT-00884 Venipuncture Draw Fee 07:59:02 CDT
--- OUTSIDE RECORDS SUMMARY | 2019-10-10 20:27 | XMS REPORT | Clinical Summary ---
Author Author Admin, Son Chan Organization [facility] Address Unknown Phone Unavailable Allergies, Adverse Reactions, [...] unspecified noninfectious gastroenteritis and colitis Amenorrhea 626.0 Resolved Ned Navarrete MD Absence of menstruation Gastroenteritis Inactive George Frances MD Other and unspecified noninfectious gastroenteritis and colitis Folliculitis 704.8 Resolved Ned Navarrete MD Other specified diseases of hair and hair follicles Supervision of other normal V22.1 Inactive Ned Navarrete MD Supervision of other normal Supervision of high risk due to social probl ems, third trimester V23.89 Resolved Ned Navarrete MD Other high-risk Drug use complicating , second trimester [...] abuse, unspecified use Upper respiratory infection 465.9 Resolved Ned Navarrete MD Acute upper respiratory infections of un specified site V22.2 Resolved eNd Navarrete MD state, incidental examination V24.2 Active Ned pérez MD Routine follow-up Depression, major 296.20 Active Ned Navarrete MD Major depressive disorder, single episode, unspecified degree WEIGHT GAIN ICD-783.1 Inactive Ned Navarrete MD [...] MD Gastroenteritis ICD-558.9 Inactive Ned Prescott MD Amenorrhea ICD-626.0 Inactive Ned Dumont Gastroenteritis Inactive George Frances MD Folliculitis ICD-704.8 Inactive Ned Navarrete MD Supervision of high risk due to social probl ems, third trimester ICD-V23.89 Inactive Ned Navarrete MD Drug use complicating , second trimester ICD-648.33 Inactive Missy Hayes LRT Methamphetamine abuse ICD-305.70 Inactive Andreea Hayes LRT 20 weeks gestation of ICD-V28.9 Inac tive Missy Hayes LRT 22 weeks gestation of ICD-V28.9 Inac tive Missy Waddellty LRT Upper respiratory infection ICD-465.9 Inactive Ned Navarrete MD ICD-V22.2 Inactive Ned Navarrete MD Medication List Medication Instructions Start Date Stop Date Generic Name NDC Status Provider Patient Instruction TRI-SPRINTEC 0.18/0.215/0.25 MG-35 MCG ORAL TABS 1 daily for contraception NORGESTIM-ETH ESTRAD TRIPHASIC 87061038345 Active Ned Navarrete MD Active LATUDA 20 MG ORAL TABS LURASIDONE HCL 37254928726 No Longer Active Ned Navarrete MD Active PREDNISONE 20 MG TABS Take 2 daily for 3 days and then 1 herman ly for 3 days PREDNISONE 10684706096 No Longer Active Ned pérez MD Active CEPHALEXIN 500 MG ORAL CAPS CEPHALEXIN 69383603077 No Longer Active Ned Navarrete MD Active LORATADINE 10 MG TABS 1 tablet by mouth daily L ORATADINE 44525530676 No Longer Active Breanne Madl CRANE CREW SUPERVISOR Active HYDROXYZINE HCL 25 MG TABS Take 1-2 tablets daily 2015 HYDROXYZINE HCL 13861129795 No Longer Active Breanne Madl CRANE CREW SUPERVISOR Active ORTHO TRI-CYCLEN (28) 0.18/0.215/0.25 MG-35 MCG TABS 1 daily NORGESTIM-ETH ESTRAD TRIPHASIC 91474097981 No Longer Active Breanne Madl CRANE CREW SUPERVISOR Active CLARITIN 10 MG TAB 1 tablet by mouth daily as needed for itchy r khari LORATADINE 17582126870 No Longer Active Ned Navarrete MD Active AUGMENTIN 875-125 MG TAB 1 po BID x 10 days with food AMOXICILLIN-POT CLAVULANATE 35954453107 No Longer Active Toni Washington DO Active ORTHO TRI-CYCLEN (28) 0.18/0.215/0.25 MG-35 MCG TABS 1 daily NORGESTIM-ETH ESTRAD TRIPHASIC 28494605408 No Longer Active Ned Navarrete MD Active ZOFRAN ODT 4 MG TBDP 1 po q6hr PRN Nausea ONDAN SETRON 38896569487 No Longer Active Ned Navarrete MD Active [facility] M[facility] 3 MG TABS Take 1 tablet at bedtime. 2013 MELATONIN 16879525385 No Longer Active Ned Navarrete MD Activ e BIOTIN 1000 MCG TABS Take 2 tablets daily BIOTI N 33538356765 No Longer Active Ned Navarrete MD Active OMEPRAZOLE 20 MG CPDR 1 tablet by mouth daily O MEPRAZOLE 72001895106 No Longer Active Mariana Moses APRN Active LATUDA 80 MG TABS 1 tablet daily LURASIDONE HCL 94842454926 No Longer Active Mariana Moses APRN Active ZOVIRAX 400 MG TABS Take 1 tablet every 8 hours as needed 2 ACYCLOVIR 56945167625 No Longer Active Ned Navarrete MD Activ e ZITHROMAX Z-CHACE 250 MG TABS 2 today, then 1 daily for 4 days 201 10/06/11 AZITHROMYCIN 84614845245 No Longer Active Ned Navarrete MD Active TOPAMAX 100 MG TABS 1 tablet daily TOPIRAMATE 54 042576571 No Longer Active Ned Navarrete MD Active AMOXICILLIN 500 MG CAPS 2 po BID x 10 days AMOX ICILLIN 28409780880 No Longer Active Saskia Simon MD PhD Active NAPROSYN 375 MG TAB 1 twice a day as needed for chest pain 04/01 NAPROXEN 72455530049 No Longer Active Saskia Simon MD PhD Active HYDROCORTISONE 2.5 % EXT CREA Apply three times a day to aff ected area HYDROCORTISONE 09217562114 No Longer Active Ned Navarrete MD Active TOPIRAMATE 50 MG TABS 1 QD TOPIRAMATE 72497961981 No Longer Active Ned Navarrete MD Active FANAPT 6 MG TABS 1 BID ILOPERIDONE 09548143460 No L onger Active Ned Navarrete MD Active CIPROFLOXACIN HCL 0.3 % SOLN 1 drop in right eye every 2 hours for 2 days, then 1 drop four times a day CIPROFLOXACIN HCL 52556483804 No Longer Active Ned Navarrete MD Active LORATADINE 10 MG TABS 1 tablet by mouth daily L ORATADINE 40795338579 No Longer Active Ned Navarrete MD Active RANITIDINE HCL 150 MG CAPS 1 twice a day RANITI DINE HCL 63616142883 No Longer Active Ned Navarrete MD Active RANITIDINE HCL 150 MG CAPS 1 twice a day RANITIDINE HCL 150 MG CAPS 627414 RANITIDINE HCL Inactive LORATADINE 10 MG TABS 1 tablet by mouth daily LORATADINE 10 MG TABS 937830 LORATADINE Inactive CIPROFLOXACIN HCL 0.3 % SOLN 1 drop in right eye every 2 hours for 2 days, then 1 drop four times a day CIPROFLOXACIN HCL 0.3 % SOLN 283982 CIPROFLOXACIN HCL Inactive FANAPT 6 MG TABS 1 BID FANAPT 6 MG TABS ILO PERIDONE Inactive TOPIRAMATE 50 MG TABS 1 QD TOPIRAMATE 50 MG TABS 1 84460 TOPIRAMATE Inactive HYDROCORTISONE 2.5 % EXT CREA Apply three times a day to aff ected area HYDROCORTISONE 2.5 % EXT CREA 558382 HYDROCORTIS ONE Inactive NAPROSYN 375 MG TAB 1 twice a day as needed for chest pain 04/01 NAPROSYN 375 MG TAB NAPROXEN Inactive TOPAMAX 100 MG TABS 1 tablet daily TOPAMAX 100 MG TABS 834988 TOPIRAMATE Inactive ZOVIRAX 400 MG TABS Take 1 tablet every 8 hours as needed 2 ZOVIRAX 400 MG TABS 232933 ACYCLOVIR Inactive LATUDA 80 MG TABS 1 tablet daily LATUDA 80 MG TA BS LURASIDONE HCL Inactive OMEPRAZOLE 20 MG CPDR 1 tablet by mouth daily OMEPRAZOLE 20 MG CPDR 819421 OMEPRAZOLE Inactive BIOTIN 1000 MCG TABS Take 2 tablets daily BIOTIN 1000 MCG TABS 226040 BIOTIN Inactive [facility] 3 MG TABS Take 1 tablet at bedtime. 2013 [facility] 3 MG TABS 277086 MELATONIN Inactive ZOFRAN ODT 4 MG TBDP 1 po q6hr PRN Nausea ZOFRAN ODT 4 MG TBDP 034824 ONDANSETRON Inactive ORTHO TRI-CYCLEN (28) 0.18/0.215/0.25 MG-35 MCG TABS 1 daily ORTHO TRI-CYCLEN (28) 0.18/0.215/0.25 MG-35 MCG TABS 530323 NORGESTIM-ETH ESTRAD TRIPHASIC Inactive CLARITIN 10 MG TAB 1 tablet by mouth daily as needed for itchy r khari CLARITIN 10 MG TAB 718866 LORATADINE Inactive ORTHO TRI-CYCLEN (28) 0.18/0.215/0.25 MG-35 MCG TABS 1 daily ORTHO TRI-CYCLEN (28) 0.18/0.215/0.25 MG-35 MCG TABS 894280 NORGESTIM-ETH ESTRAD TRIPHASIC Inactive HYDROXYZINE HCL 25 MG TABS Take 1-2 tablets daily 2015 HYDROXYZINE HCL 25 MG TABS 180121 HYDROXYZINE HCL Inactive LORATADINE 10 MG TABS 1 tablet by mouth daily LORATADINE 10 MG TABS 138483 LORATADINE Inactive CEPHALEXIN 500 MG ORAL CAPS CEPHALEX IN 500 MG ORAL CAPS 894338 CEPHALEXIN Inactive PREDNISONE 20 MG TABS Take 2 daily for 3 days and then 1 herman ly for 3 days PREDNISONE 20 MG TABS 670021 PREDNISONE Inacti ve LATUDA 20 MG ORAL TABS LATUDA 20 MG OR AL TABS LURASIDONE HCL Inactive AMOXICILLIN 500 MG CAPS 2 po BID x 10 days AMOXICILLIN 500 MG CAPS 394590 AMOXICILLIN Inactive ZITHROMAX Z-CHACE 250 MG TABS 2 today, then 1 daily for 4 days 201 10/06/11 ZITHROMAX Z-CHACE 250 MG TABS 5128675 AZITHROMYCIN Inac tive AUGMENTIN 875-125 MG TAB 1 po BID x 10 days with food AUGMENTIN 875-125 MG TAB 076819 AMOXICILLIN-POT CLAVULANATE Inactiv e Advance Directives Directive [...] 18 yo)) Fluzone preservative free (>3 yrs.) [IYP420] Influenza, seasonal, injectable, preservative free MPSV4 (meningococcal polysaccharide vaccination) Menactra meningococcal polysaccharide vaccine (MPSV4) hepatitis A immunization #1 Havrix-Pedi hepa titis A vaccine, unspecified formulation Adacel (Tetanus, reduced Diphtheria, and acellular Per tussis Immunization) Adacel [[id number]] tetanus toxoid, reduced diph theria toxoid, and [...] Value Unit Range Description blood pressure, diastolic 80 mm[Hg] BP michele blood pressure, systolic 121 mm[Hg] BP sys height E&M 68.25 [in_us] Bdy height pulse rate E&M 103 /min Heart rate temperature E&M 99.2 [degF] Body temp erature weight E&M 137.5 [lb_av] Weight Measure d blood pressure, diastolic 68 mm[Hg] BP michele blood pressure, systolic 110 mm[Hg] BP sys pulse rate E&M 90 /min Heart rate temperature E&M 99.4 [degF] Body temp erature weight E&M 162.0 [lb_av] Weight Measure d blood pressure, diastolic 73 mm[Hg] BP michele blood pressure, systolic 110 mm[Hg] BP sys pulse rate E&M 99 /min Heart rate temperature E&M 98.3 [degF] Body temp erature weight E&M 161 [lb_av] Weight Measure d blood pressure, diastolic 71 mm[Hg] BP michele blood pressure, systolic 110 mm[Hg] BP sys pulse rate E&M 86 /min Heart rate temperature E&M 97.6 [degF] Body temp erature weight E&M 155.5 [lb_av] Weight Measure d blood pressure, diastolic 70 mm[Hg] BP michele blood pressure, systolic 114 mm[Hg] BP sys pulse rate E&M 83 /min Heart rate temperature E&M 98.2 [degF] Body temp erature weight E&M 156.5 [lb_av] Weight Measure d blood pressure, diastolic 71 mm[Hg] BP michele blood pressure, systolic 107 mm[Hg] BP sys pulse rate E&M 120 /min Heart rate temperature E&M 98.8 [degF] Body temp erature weight E&M 149.5 [lb_av] Weight Measure d blood pressure, diastolic 71 mm[Hg] BP michele blood pressure, systolic 101 mm[Hg] BP sys pulse rate E&M 123 /min Heart rate temperature E&M 99.3 [degF] Body temp erature weight E&M 146 [lb_av] Weight Measure d blood pressure, diastolic 65 mm[Hg] BP michele blood pressure, systolic 96 mm[Hg] BP sys pulse rate E&M 89 /min Heart rate temperature E&M 98.8 [degF] Body temp erature weight E&M 143.5 [lb_av] Weight Measure d blood pressure, diastolic 66 mm[Hg] BP michele blood pressure, systolic 99 mm[Hg] BP sys pulse rate E&M 88 /min Heart rate temperature E&M 98.7 [degF] Body temp erature weight E&M 139.5 [lb_av] Weight Measure d blood pressure, diastolic 75 mm[Hg] BP michele blood pressure, systolic 107 mm[Hg] BP sys pulse rate E&M 94 /min Heart rate temperature E&M 98.9 [degF] Body temp erature weight E&M 125.0 [lb_av] Weight Measure d blood pressure, diastolic 67 mm[Hg] BP michele blood pressure, systolic 113 mm[Hg] BP sys pulse rate E&M 110 /min Heart rate temperature E&M 98.5 [degF] Body temp erature weight E&M 123 [lb_av] Weight Measure d blood pressure, diastolic 66 mm[Hg] BP michele blood pressure, systolic 102 mm[Hg] BP sys pulse rate E&M 90 /min Heart rate temperature E&M 98.9 [degF] Body temp erature weight E&M 123 [lb_av] Weight Measure d Diagnostic Results Date Name Value Unit Range [...] 11 .0-15.0 platelet count 210 THOUSAND/UL 10*3/mm3 562-833 0808/11/02 mean platelet volume 10.3 fL 7.5-11.5 Lab [...] N Encounters Code Encounter Date Provider Facility CPT-72203 Level 3 Est. Patient 15:21:38 BLUEPRINT ASSEMBLER Rayna Pepper [facility] CPT-14954 Level 3 Est. Patient 15:35:51 BLUEPRINT ASSEMBLER Ned Navarrete MD [facility] CPT-20885 Level 2 Est. Patient 12:43:40 CDT Ned Navarrete MD [facility]-05238 Level 3 Est. Patient 14:38:48 CDT Toni duque DO [facility] CPT-61404 Level 3 Est. Patient 09:02:58 BLUEPRINT ASSEMBLER George paulson MD [facility] CPT-07459 Level 3 Est. Patient 17:42:32 CDT Ned Navarrete MD [facility] CPT-84009 Level 3 Est. Patient 11:04:31 BLUEPRINT ASSEMBLER Mariana Torrez [facility] CPT-24270 Level 4 Est. Patient 12:27:05 BLUEPRINT ASSEMBLER Ned Navarrete MD [facility] CPT-28632 Level 3 Est. Patient 11:31:58 BLUEPRINT ASSEMBLER Ned Navarrete MD [facility] CPT-50048 Level 3 Est. Patient 16:49:32 CDT Ned Navarrete MD [facility] CPT-41409 Level 4 Est. Patient 14:11:59 BLUEPRINT ASSEMBLER Saskia green MD PhD [facility] CPT-61365 Level 3 Est. Patient 17:34:25 CDT Ned Navarrete MD [facility] CPT-14930 Level 3 Est. Patient 17:34:19 CDT Ned Navarrete MD [facility] CPT-11202 Level 3 Est. Patient 13:46:05 CDT Ned Navarrete MD [facility] CPT-48570 Level 3 Est. Patient 16:55:47 BLUEPRINT ASSEMBLER Ned Navarrete MD [facility] CPT-33668 Level 2 Est. Patient 17:33:08 BLUEPRINT ASSEMBLER Ned Navarrete MD [facility] CPT-62223 Level 3 Est. Patient 16:25:26 BLUEPRINT ASSEMBLER Ned Navarrete MD [facility] Procedures Code Procedure Name Date Entry Date Standard Desc ription CPT-28033 No Charge Offi Visit 11:24:44 CDT 1 CPT-87197 Visit 14:52:59 CDT CPT-90990 Visit 15:17:20 CDT CPT-59663 Visit 15:57:29 CDT CPT-84061 First Vx - Ix admin via ID I M or jet injects without counseling by physician 15:53:15 CDT CPT-91123 Boostrix Intramuscular Suspension 5-2.5-18.5 201 01/28/11 15:53:14 CDT CPT-87822 Tdap 7yrs or > 14:41:06 CDT CPT-45733 Visit 17:47:08 CDT CPT-28566 OBGTT 1 - LAB USE ONLY 10:15:57 CDT CPT-06064 Venipuncture Draw Fee 10:15:57 CDT CPT-62666 Visit 15:07:16 BLUEPRINT ASSEMBLER CPT-94150 Visit 16:49:41 BLUEPRINT ASSEMBLER CPT-81288 Sono OB limited - XRAY USE ONLY 16:38:01 CS T CPT-54547 Sono OB comp > 14 weeks - XRAY USE ONLY 17:00:59 BLUEPRINT ASSEMBLER CPT-56264 UA w micro - LAB USE ONLY 16:59:38 CDT 2015 CPT-95021 TSH - LAB USE ONLY 16:59:38 CDT CPT-68481 Venipuncture Draw Fee 16:59:38 CDT CPT-58179 Spec Collection and Handling Fee 14:01:24 C DT CPT-79166 Visit 14:01:24 CDT CPT-033 [facility] Med Screen 14:03:18 CDT CPT-033 [facility] Med Screen 11:04:57 CDT CPT-033 [facility] Med Screen 10:29:44 CDT CPT-61571 Administration 2+ single or combination vaccines inc oral 14:02:47 BLUEPRINT ASSEMBLER CPT-14215 Administration single or combination vac cine inc oral 14:02:47 BLUEPRINT ASSEMBLER CPT-12654 Hepatitis A ped/adol 2 dose schedule 14:02:47 BLUEPRINT ASSEMBLER CPT-45780 Gardasil 14:02:47 BLUEPRINT ASSEMBLER CPT-29505 Administration single or combination vac cine inc oral 11:40:38 BLUEPRINT ASSEMBLER CPT-23499 Gardasil 11:40:38 BLUEPRINT ASSEMBLER CPT-38407 Administration single or combination vac cine inc oral 09:45:00 CDT CPT-21686 Influenza Preservative Free split virus >age 3 09:45:00 CDT CPT-01331 Venipuncture Draw Fee 07:59:02 CDT
--- OUTSIDE RECORDS SUMMARY | 2019-10-10 20:28 | XMS REPORT | Clinical Summary ---
Author Author Admin, Son Chan Organization [employer] Address Unknown Phone Unavailable Allergies, Adverse Reactions, [...] Abdominal pain, epigastric Dizziness 780.4 Active Ned aNvarrete MD Dizziness and giddiness Gastroenteritis 558.9 Resolved [...] COSTOCHONDRITIS ICD-733.6 Inactive Saskia Simon MD PhD VISUAL CHANGES ICD-368.10 Inactive Ned Prescott MD [...] OF CONSCIOUSNESS ICD-850.0 Inactive Ned Navarrete MD Medication List Medication Instructions Start Date Stop Date Generic Name NDC Status Provider Patient Instruction PREDNISONE 20 MG TABS Take 2 daily for 3 days and then 1 herman ly for 3 days PREDNISONE 76653831964 No Longer Active Ned pérez MD Active CEPHALEXIN 500 MG ORAL CAPS CEPHALEXIN 38682706221 No Longer Active Ned Navarrete MD Active LATUDA 20 MG ORAL TABS LURASIDONE HCL 4421515 0230 Active Breanne Madl TRAINING COORDINATOR Active LORATADINE 10 MG TABS 1 tablet by mouth daily L ORATADINE 58468460794 No Longer Active Breanne Madl TRAINING COORDINATOR Active HYDROXYZINE HCL 25 MG TABS Take 1-2 tablets daily 2015 HYDROXYZINE HCL 65265780347 No Longer Active Breanne Madl TRAINING COORDINATOR Active ORTHO TRI-CYCLEN (28) 0.18/0.215/0.25 MG-35 MCG TABS 1 daily NORGESTIM-ETH ESTRAD TRIPHASIC 29318838931 No Longer Active Breanne Madl TRAINING COORDINATOR Active CLARITIN 10 MG TAB 1 tablet by mouth daily as needed for itchy r khari LORATADINE 85537851854 No Longer Active Ned Navarrete MD Active AUGMENTIN 875-125 MG TAB 1 po BID x 10 days with food AMOXICILLIN-POT CLAVULANATE 09788873070 No Longer Active Toni Washington DO Active ORTHO TRI-CYCLEN (28) 0.18/0.215/0.25 MG-35 MCG TABS 1 daily NORGESTIM-ETH ESTRAD TRIPHASIC 25297246318 No Longer Active Ned Navarrete MD Active ZOFRAN ODT 4 MG TBDP 1 po q6hr PRN Nausea ONDAN SETRON 77387105660 No Longer Active Ned Navarrete MD Active [facility] 3 MG TABS Take 1 tablet at bedtime. 2013 MELATONIN 11371068677 No Longer Active Ned Navarrete MD Activ e BIOTIN 1000 MCG TABS Take 2 tablets daily BIOTI N 99579598431 No Longer Active Ned Navarrete MD Active OMEPRAZOLE 20 MG CPDR 1 tablet by mouth daily O MEPRAZOLE 98651515016 No Longer Active Mariana Moses APRN Active LATUDA 80 MG TABS 1 tablet daily LURASIDONE HCL 58265894569 No Longer Active Mariana Moses APRN Active ZOVIRAX 400 MG TABS Take 1 tablet every 8 hours as needed 2 ACYCLOVIR 30835422110 No Longer Active Ned Navarrete MD Activ e ZITHROMAX Z-CHACE 250 MG TABS 2 today, then 1 daily for 4 days 201 10/06/11 AZITHROMYCIN 19414694097 No Longer Active Ned Navarrete MD Active TOPAMAX 100 MG TABS 1 tablet daily TOPIRAMATE 54 438722241 No Longer Active Ned Navarrete MD Active AMOXICILLIN 500 MG CAPS 2 po BID x 10 days AMOX ICILLIN 92263542425 No Longer Active Saskia Simon MD PhD Active NAPROSYN 375 MG TAB 1 twice a day as needed for chest pain 04/01 NAPROXEN 72311357666 No Longer Active Saskia Simon MD PhD Active HYDROCORTISONE 2.5 % EXT CREA Apply three times a day to aff ected area HYDROCORTISONE 84559417822 No Longer Active Ned Navarrete MD Active TOPIRAMATE 50 MG TABS 1 QD TOPIRAMATE 33195422943 No Longer Active Ned Navarrete MD Active FANAPT 6 MG TABS 1 BID ILOPERIDONE 46600010966 No L onger Active Ned Navarrete MD Active CIPROFLOXACIN HCL 0.3 % SOLN 1 drop in right eye every 2 hours for 2 days, then 1 drop four times a day CIPROFLOXACIN HCL 44382769169 No Longer Active Ned Navarrete MD Active LORATADINE 10 MG TABS 1 tablet by mouth daily L ORATADINE 10166638120 No Longer Active Ned Navarrete MD Active RANITIDINE HCL 150 MG CAPS 1 twice a day RANITI DINE HCL 25907730568 No Longer Active Ned Navarrete MD Active RANITIDINE HCL 150 MG CAPS 1 twice a day RANITIDINE HCL 150 MG CAPS 351657 RANITIDINE HCL Inactive LORATADINE 10 MG TABS 1 tablet by mouth daily LORATADINE 10 MG TABS 815120 LORATADINE Inactive CIPROFLOXACIN HCL 0.3 % SOLN 1 drop in right eye every 2 hours for 2 days, then 1 drop four times a day CIPROFLOXACIN HCL 0.3 % SOLN 972264 CIPROFLOXACIN HCL Inactive FANAPT 6 MG TABS 1 BID FANAPT 6 MG TABS ILO PERIDONE Inactive TOPIRAMATE 50 MG TABS 1 QD TOPIRAMATE 50 MG TABS 1 47800 TOPIRAMATE Inactive HYDROCORTISONE 2.5 % EXT CREA Apply three times a day to aff ected area HYDROCORTISONE 2.5 % EXT CREA 691289 HYDROCORTIS ONE Inactive NAPROSYN 375 MG TAB 1 twice a day as needed for chest pain 04/01 NAPROSYN 375 MG TAB NAPROXEN Inactive TOPAMAX 100 MG TABS 1 tablet daily TOPAMAX 100 MG TABS 782618 TOPIRAMATE Inactive ZOVIRAX 400 MG TABS Take 1 tablet every 8 hours as needed 2 ZOVIRAX 400 MG TABS 357977 ACYCLOVIR Inactive LATUDA 80 MG TABS 1 tablet daily LATUDA 80 MG TA BS LURASIDONE HCL Inactive OMEPRAZOLE 20 MG CPDR 1 tablet by mouth daily OMEPRAZOLE 20 MG CPDR 704645 OMEPRAZOLE Inactive BIOTIN 1000 MCG TABS Take 2 tablets daily BIOTIN 1000 MCG TABS 244057 BIOTIN Inactive [facility] 3 MG TABS Take 1 tablet at bedtime. 2013 [facility] M[facility] 3 MG TABS 725234 MELATONIN Inactive ZOFRAN ODT 4 MG TBDP 1 po q6hr PRN Nausea ZOFRAN ODT 4 MG TBDP 222162 ONDANSETRON Inactive ORTHO TRI-CYCLEN (28) 0.18/0.215/0.25 MG-35 MCG TABS 1 daily ORTHO TRI-CYCLEN (28) 0.18/0.215/0.25 MG-35 MCG TABS 584531 NORGESTIM-ETH ESTRAD TRIPHASIC Inactive CLARITIN 10 MG TAB 1 tablet by mouth daily as needed for itchy r khari CLARITIN 10 MG TAB 973401 LORATADINE Inactive ORTHO TRI-CYCLEN (28) 0.18/0.215/0.25 MG-35 MCG TABS 1 daily ORTHO TRI-CYCLEN (28) 0.18/0.215/0.25 MG-35 MCG TABS 692436 NORGESTIM-ETH ESTRAD TRIPHASIC Inactive HYDROXYZINE HCL 25 MG TABS Take 1-2 tablets daily 2015 HYDROXYZINE HCL 25 MG TABS 997824 HYDROXYZINE HCL Inactive LORATADINE 10 MG TABS 1 tablet by mouth daily LORATADINE 10 MG TABS 319605 LORATADINE Inactive CEPHALEXIN 500 MG ORAL CAPS CEPHALEX IN 500 MG ORAL CAPS 872156 CEPHALEXIN Inactive PREDNISONE 20 MG TABS Take 2 daily for 3 days and then 1 herman ly for 3 days PREDNISONE 20 MG TABS 150367 PREDNISONE Inacti ve AMOXICILLIN 500 MG CAPS 2 po BID x 10 days AMOXICILLIN 500 MG CAPS 466399 AMOXICILLIN Inactive ZITHROMAX Z-CHACE 250 MG TABS 2 today, then 1 daily for 4 days 201 10/06/11 ZITHROMAX Z-CHACE 250 MG TABS 5534792 AZITHROMYCIN Inac tive AUGMENTIN 875-125 MG TAB 1 po BID x 10 days with food AUGMENTIN 875-125 MG TAB 061001 AMOXICILLIN-POT CLAVULANATE Inactiv e Advance Directives Directive [...] 18 yo)) Fluzone preservative free (>3 yrs.) [[id number]] Influenza, seasonal, injectable, preservative free MPSV4 (meningococcal polysaccharide vaccination) Menactra meningococcal polysaccharide vaccine (MPSV4) hepatitis A immunization #1 Havrix-Pedi hepa titis A vaccine, unspecified formulation Adacel (Tetanus, reduced Diphtheria, and acellular Per tussis Immunization) Adacel [[id number]] tetanus toxoid, reduced diph theria toxoid, and [...] 11 .0-15.0 platelet count 210 THOUSAND/UL 10*3/mm3 117-013 5110/11/02 mean platelet volume 10.3 fL 7.5-11.5 Lab [...] N Encounters Code Encounter Date Provider Facility CPT-73088 Level 3 Est. Patient 15:35:51 SIGNAL CIRCUIT DESIGNER Ned Navarrete MD [facility] CPT-27639 Level 2 Est. Patient 12:43:40 CDT Ned Navarrete MD [facility] CPT-86855 Level 3 Est. Patient 14:38:48 CDT Toni duque DO [facility] CPT-81440 Level 3 Est. Patient 09:02:58 SIGNAL CIRCUIT DESIGNER George paulson MD [facility] CPT-04165 Level 3 Est. Patient 17:42:32 CDT Ned Navarrete MD [facility] CPT-18761 Level 3 Est. Patient 11:04:31 SIGNAL CIRCUIT DESIGNER Mariana Torrez APRN [facility] CPT-50026 Level 4 Est. Patient 12:27:05 SIGNAL CIRCUIT DESIGNER Ned Navarrete MD [facility] CPT-58921 Level 3 Est. Patient 11:31:58 SIGNAL CIRCUIT DESIGNER Ned Navarrete MD [facility] CPT-42899 Level 3 Est. Patient 16:49:32 CDT Ned Navarrete MD [facility] CPT-49066 Level 4 Est. Patient 14:11:59 SIGNAL CIRCUIT DESIGNER Saskia green MD PhD [facility] CPT-03138 Level 3 Est. Patient 17:34:25 CDT Ned Navarrete MD [facility] CPT-94147 Level 3 Est. Patient 17:34:19 CDT Ned Navarrete MD [facility] CPT-55871 Level 3 Est. Patient 13:46:05 CDT Ned Navarrete MD [facility] CPT-60306 Level 3 Est. Patient 16:55:47 SIGNAL CIRCUIT DESIGNER Ned Navarrete MD [facility] CPT-46766 Level 2 Est. Patient 17:33:08 SIGNAL CIRCUIT DESIGNER Ned Navarrete MD [facility] CPT-54874 Level 3 Est. Patient 16:25:26 SIGNAL CIRCUIT DESIGNER Ned Navarrete MD [facility] Procedures Code Procedure Name Date Entry Date Standard Desc ription CPT-20237 Visit 15:07:16 SIGNAL CIRCUIT DESIGNER CPT-17712 Visit 16:49:41 SIGNAL CIRCUIT DESIGNER CPT-51100 Sono OB limited - XRAY USE ONLY 16:38:01 CS T CPT-45466 Sono OB comp > 14 weeks - XRAY USE ONLY 17:00:59 SIGNAL CIRCUIT DESIGNER CPT-51087 UA w micro - LAB USE ONLY 16:59:38 CDT 2015 CPT-09991 TSH - LAB USE ONLY 16:59:38 CDT CPT-95428 Venipuncture Draw Fee 16:59:38 CDT CPT-40034 Spec Collection and Handling Fee 14:01:24 C DT CPT-34147 Visit 14:01:24 CDT CPT-033 [facility] Med Screen 14:03:18 CDT CPT-033 [facility] Med Screen 11:04:57 CDT CPT-033 [facility] Med Screen 10:29:44 CDT CPT-84387 Administration 2+ single or combination vaccines inc oral 14:02:47 SIGNAL CIRCUIT DESIGNER CPT-17997 Administration single or combination vac cine inc oral 14:02:47 SIGNAL CIRCUIT DESIGNER CPT-13366 Hepatitis A ped/adol 2 dose schedule 14:02:47 SIGNAL CIRCUIT DESIGNER CPT-68309 Gardasil 14:02:47 SIGNAL CIRCUIT DESIGNER CPT-63404 Administration single or combination vac cine inc oral 11:40:38 SIGNAL CIRCUIT DESIGNER CPT-68182 Gardasil 11:40:38 SIGNAL CIRCUIT DESIGNER CPT-17469 Administration single or combination vac cine inc oral 09:45:00 CDT CPT-37889 Influenza Preservative Free split virus >age 3 09:45:00 CDT CPT-02736 Venipuncture Draw Fee 07:59:02 CDT
--- OUTSIDE RECORDS SUMMARY | 2019-10-10 20:28 | XMS REPORT | Clinical Summary ---
Author Author Admin, Son Chan Organization [employer] Address Unknown Phone Unavailable Allergies, Adverse Reactions, [...] 1 herman ly for 3 days PREDNISONE 47969959397 No Longer Active Ned pérez MD Active CEPHALEXIN 500 MG ORAL CAPS CEPHALEXIN 74131480834 No Longer Active Ned Navarrete MD Active LATUDA 20 MG ORAL TABS LURASIDONE HCL 9735686 0230 Active Breanne Madl YIELD ANALYST Active LORATADINE 10 MG TABS 1 tablet by mouth daily L ORATADINE 82676535749 No Longer Active Breanne Madl YIELD ANALYST Active HYDROXYZINE HCL 25 MG TABS Take 1-2 tablets daily 2015 HYDROXYZINE HCL 73847302473 No Longer Active Breanne Madl YIELD ANALYST Active ORTHO TRI-CYCLEN (28) 0.18/0.215/0.25 MG-35 MCG TABS 1 daily NORGESTIM-ETH ESTRAD TRIPHASIC 79432993991 No Longer Active Breanne Madl YIELD ANALYST Active CLARITIN 10 MG TAB 1 tablet by mouth daily as needed for itchy r khari LORATADINE 55959925510 No Longer Active Ned Navarrete MD Active AUGMENTIN 875-125 MG TAB 1 po BID x 10 days with food AMOXICILLIN-POT CLAVULANATE 49013612178 No Longer Active Toni Washington DO Active ORTHO TRI-CYCLEN (28) 0.18/0.215/0.25 MG-35 MCG TABS 1 daily NORGESTIM-ETH ESTRAD TRIPHASIC 62354736014 No Longer Active Ned Navarrete MD Active ZOFRAN ODT 4 MG TBDP 1 po q6hr PRN Nausea ONDAN SETRON 34118631870 No Longer Active Ned Navarerte MD Active [facility] MEL[facility] 3 MG TABS Take 1 tablet at bedtime. 2013 MELATONIN 85880768696 No Longer Active Ned Navarrete MD Activ e BIOTIN 1000 MCG TABS Take 2 tablets daily BIOTI N 47232129880 No Longer Active Ned Navarrete MD Active OMEPRAZOLE 20 MG CPDR 1 tablet by mouth daily O MEPRAZOLE 73845699275 No Longer Active Mariana Moses APRN Active LATUDA 80 MG TABS 1 tablet daily LURASIDONE HCL 43842852529 No Longer Active Mariana Moses APRN Active ZOVIRAX 400 MG TABS Take 1 tablet every 8 hours as needed 2 ACYCLOVIR 98064571092 No Longer Active Ned Navarrete MD Activ e ZITHROMAX Z-CHACE 250 MG TABS 2 today, then 1 daily for 4 days 201 10/06/11 AZITHROMYCIN 17098954854 No Longer Active Ned Navarrete MD Active TOPAMAX 100 MG TABS 1 tablet daily TOPIRAMATE 54 002410353 No Longer Active Ned Navarrete MD Active AMOXICILLIN 500 MG CAPS 2 po BID x 10 days AMOX ICILLIN 94322219971 No Longer Active Saskia Simon MD PhD Active NAPROSYN 375 MG TAB 1 twice a day as needed for chest pain 04/01 NAPROXEN 37500467151 No Longer Active Saskia Simon MD PhD Active HYDROCORTISONE 2.5 % EXT CREA Apply three times a day to aff ected area HYDROCORTISONE 23030802292 No Longer Active Ned Navarrete MD Active TOPIRAMATE 50 MG TABS 1 QD TOPIRAMATE 75245386830 No Longer Active Ned Navarrete MD Active FANAPT 6 MG TABS 1 BID ILOPERIDONE 72084672734 No L onger Active Ned Navarrete MD Active CIPROFLOXACIN HCL 0.3 % SOLN 1 drop in right eye every 2 hours for 2 days, then 1 drop four times a day CIPROFLOXACIN HCL 62029099523 No Longer Active Ned Navarrete MD Active LORATADINE 10 MG TABS 1 tablet by mouth daily L ORATADINE 47617080501 No Longer Active Ned Navarrete MD Active RANITIDINE HCL 150 MG CAPS 1 twice a day RANITI DINE HCL 53764500710 No Longer Active Ned Navarrete MD Active RANITIDINE HCL 150 MG CAPS 1 twice a day RANITIDINE HCL 150 MG CAPS 700003 RANITIDINE HCL Inactive LORATADINE 10 MG TABS 1 tablet by mouth daily LORATADINE 10 MG TABS 184406 LORATADINE Inactive CIPROFLOXACIN HCL 0.3 % SOLN 1 drop in right eye every 2 hours for 2 days, then 1 drop four times a day CIPROFLOXACIN HCL 0.3 % SOLN 499571 CIPROFLOXACIN HCL Inactive FANAPT 6 MG TABS 1 BID FANAPT 6 MG TABS ILO PERIDONE Inactive TOPIRAMATE 50 MG TABS 1 QD TOPIRAMATE 50 MG TABS 1 19645 TOPIRAMATE Inactive HYDROCORTISONE 2.5 % EXT CREA Apply three times a day to aff ected area HYDROCORTISONE 2.5 % EXT CREA 407845 HYDROCORTIS ONE Inactive NAPROSYN 375 MG TAB 1 twice a day as needed for chest pain 04/01 NAPROSYN 375 MG TAB NAPROXEN Inactive TOPAMAX 100 MG TABS 1 tablet daily TOPAMAX 100 MG TABS 105543 TOPIRAMATE Inactive ZOVIRAX 400 MG TABS Take 1 tablet every 8 hours as needed 2 ZOVIRAX 400 MG TABS 551097 ACYCLOVIR Inactive LATUDA 80 MG TABS 1 tablet daily LATUDA 80 MG TA BS LURASIDONE HCL Inactive OMEPRAZOLE 20 MG CPDR 1 tablet by mouth daily OMEPRAZOLE 20 MG CPDR 756541 OMEPRAZOLE Inactive BIOTIN 1000 MCG TABS Take 2 tablets daily BIOTIN 1000 MCG TABS 744979 BIOTIN Inactive [facility] 3 MG TABS Take 1 tablet at bedtime. 2013 [facility] M[facility] 3 MG TABS 962092 MELATONIN Inactive ZOFRAN ODT 4 MG TBDP 1 po q6hr PRN Nausea ZOFRAN ODT 4 MG TBDP 996748 ONDANSETRON Inactive ORTHO TRI-CYCLEN (28) 0.18/0.215/0.25 MG-35 MCG TABS 1 daily ORTHO TRI-CYCLEN (28) 0.18/0.215/0.25 MG-35 MCG TABS 131020 NORGESTIM-ETH ESTRAD TRIPHASIC Inactive CLARITIN 10 MG TAB 1 tablet by mouth daily as needed for itchy r khari CLARITIN 10 MG TAB 140866 LORATADINE Inactive ORTHO TRI-CYCLEN (28) 0.18/0.215/0.25 MG-35 MCG TABS 1 daily ORTHO TRI-CYCLEN (28) 0.18/0.215/0.25 MG-35 MCG TABS 436524 NORGESTIM-ETH ESTRAD TRIPHASIC Inactive HYDROXYZINE HCL 25 MG TABS Take 1-2 tablets daily 2015 HYDROXYZINE HCL 25 MG TABS 641826 HYDROXYZINE HCL Inactive LORATADINE 10 MG TABS 1 tablet by mouth daily LORATADINE 10 MG TABS 072363 LORATADINE Inactive CEPHALEXIN 500 MG ORAL CAPS CEPHALEX IN 500 MG ORAL CAPS 531271 CEPHALEXIN Inactive PREDNISONE 20 MG TABS Take 2 daily for 3 days and then 1 herman ly for 3 days PREDNISONE 20 MG TABS 238624 PREDNISONE Inacti ve AMOXICILLIN 500 MG CAPS 2 po BID x 10 days AMOXICILLIN 500 MG CAPS 426602 AMOXICILLIN Inactive ZITHROMAX Z-CHACE 250 MG TABS 2 today, then 1 daily for 4 days 201 10/06/11 ZITHROMAX Z-CHACE 250 MG TABS 3167557 AZITHROMYCIN Inac tive AUGMENTIN 875-125 MG TAB 1 po BID x 10 days with food AUGMENTIN 875-125 MG TAB 869661 AMOXICILLIN-POT CLAVULANATE Inactiv e Advance Directives Directive [...] 18 yo)) Fluzone preservative free (>3 yrs.) [[id number]] Influenza, seasonal, injectable, preservative free MPSV4 (meningococcal polysaccharide vaccination) Menactra meningococcal polysaccharide vaccine (MPSV4) hepatitis A immunization #1 Havrix-Pedi hepa titis A vaccine, unspecified formulation Adacel (Tetanus, reduced Diphtheria, and acellular Per tussis Immunization) Adacel [[id number]] tetanus toxoid, reduced diph theria toxoid, and [...] 11 .0-15.0 platelet count 210 THOUSAND/UL 10*3/mm3 985-391 0031/11/02 mean platelet volume 10.3 fL 7.5-11.5 Lab [...] N Encounters Code Encounter Date Provider Facility CPT-49306 Level 3 Est. Patient 15:21:38 OLIVIA Pepper [facility] CPT-77215 Level 3 Est. Patient 15:35:51 [employer] Ned Navarrete MD [facility]-10535 Level 2 Est. Patient 12:43:40 CDT Ned Navarrete MD [facility]-28547 Level 3 Est. Patient 14:38:48 CDT Toni duque DO [facility] CPT-39528 Level 3 Est. Patient 09:02:58 [employer] George paulson MD [facility] CPT-30085 Level 3 Est. Patient 17:42:32 CDT Ned Navarrete MD [facility]-50565 Level 3 Est. Patient 11:04:31 [employer] Mariana Torrez [facility] CPT-79217 Level 4 Est. Patient 12:27:05 [employer] Ned Navarrete MD [facility]-99495 Level 3 Est. Patient 11:31:58 [employer] Ned Navarrete MD [facility] CPT-05857 Level 3 Est. Patient 16:49:32 CDT Ned Navarrete MD [facility]-17284 Level 4 Est. Patient 14:11:59 [employer] Saskia green MD PhD [facility] CPT-07899 Level 3 Est. Patient 17:34:25 CDT Ned Navarrete MD [facility] CPT-89640 Level 3 Est. Patient 17:34:19 CDT Ned Navarrete MD [facility] CPT-82089 Level 3 Est. Patient 13:46:05 CDT Ned Navarrete MD [facility]-03059 Level 3 Est. Patient 16:55:47 [employer] Ned Navarrete MD [facility]-34234 Level 2 Est. Patient 17:33:08 [employer] Ned Navarrete MD [facility]-19017 Level 3 Est. Patient 16:25:26 [employer] Ned Navarrete MD [facility] Procedures Code Procedure Name Date Entry Date Standard Desc ription CPT-62563 Visit 14:52:59 CDT CPT-60496 Visit 15:17:20 CDT CPT-47628 Visit 15:57:29 CDT CPT-18448 First Vx - Ix admin via ID I M or jet injects without counseling by physician 15:53:15 CDT CPT-18097 Boostrix Intramuscular Suspension 5-2.5-18.5 201 01/28/11 15:53:14 CDT CPT-85892 Tdap 7yrs or > 14:41:06 CDT CPT-77008 Visit 17:47:08 CDT CPT-68896 OBGTT 1 - LAB USE ONLY 10:15:57 CDT CPT-63082 Venipuncture Draw Fee 10:15:57 CDT CPT-09336 Visit 15:07:16 [employer] CPT-54486 Visit 16:49:41 [employer] CPT-63052 Sono OB limited - XRAY USE ONLY 16:38:01 CS T CPT-50335 Sono OB comp > 14 weeks - XRAY USE ONLY 17:00:59 [employer] CPT-74300 UA w micro - LAB USE ONLY 16:59:38 CDT 2015 CPT-84839 TSH - LAB USE ONLY 16:59:38 CDT CPT-31031 Venipuncture Draw Fee 16:59:38 CDT CPT-58740 Spec Collection and Handling Fee 14:01:24 C DT CPT-15621 Visit 14:01:24 CDT CPT-033 [facility] Med Screen 14:03:18 CDT CPT-033 [facility] Med Screen 11:04:57 CDT CPT-033 [facility] Med Screen 10:29:44 CDT CPT-78770 Administration 2+ single or combination vaccines inc oral 14:02:47 [employer] CPT-90527 Administration single or combination vac cine inc oral 14:02:47 [employer] CPT-48786 Hepatitis A ped/adol 2 dose schedule 14:02:47 [employer] CPT-58778 Gardasil 14:02:47 [employer] CPT-15146 Administration single or combination vac cine inc oral 11:40:38 [employer] CPT-81486 Gardasil 11:40:38 [employer] CPT-27508 Administration single or combination vac cine inc oral 09:45:00 CDT CPT-23984 Influenza Preservative Free split virus >age 3 09:45:00 CDT CPT-22272 Venipuncture Draw Fee 07:59:02 CDT
--- OUTSIDE RECORDS SUMMARY | 2019-10-10 20:28 | XMS REPORT | Clinical Summary ---
Author Author Admin, Son Chan Organization [employer] Address Unknown Phone Unavailable Allergies, Adverse Reactions, [...] 1 herman ly for 3 days PREDNISONE [id number] No Longer Active Ned pérez MD Active CEPHALEXIN 500 MG ORAL CAPS CEPHALEXIN 39290466553 No Longer Active Ned Navarrete MD Active LATUDA 20 MG ORAL TABS LURASIDONE HCL 8227301 0230 Active Breanne Madl DELIVERER OUTSIDE Active LORATADINE 10 MG TABS 1 tablet by mouth daily L ORATADINE 51638588543 No Longer Active Breanne Madl DELIVERER OUTSIDE Active HYDROXYZINE HCL 25 MG TABS Take 1-2 tablets daily 2015 HYDROXYZINE HCL 65443097327 No Longer Active Breanne Madl DELIVERER OUTSIDE Active ORTHO TRI-CYCLEN (28) 0.18/0.215/0.25 MG-35 MCG TABS 1 daily NORGESTIM-ETH ESTRAD TRIPHASIC 42835061992 No Longer Active Breanne Madl DELIVERER OUTSIDE Active CLARITIN 10 MG TAB 1 tablet by mouth daily as needed for itchy r khari LORATADINE 60907875724 No Longer Active Ned Navarrete MD Active AUGMENTIN 875-125 MG TAB 1 po BID x 10 days with food AMOXICILLIN-POT CLAVULANATE 55770487000 No Longer Active Toni Washington DO Active ORTHO TRI-CYCLEN (28) 0.18/0.215/0.25 MG-35 MCG TABS 1 daily NORGESTIM-ETH ESTRAD TRIPHASIC 34059568345 No Longer Active Ned Navarrete MD Active ZOFRAN ODT 4 MG TBDP 1 po q6hr PRN Nausea ONDAN SETRON 39111095133 No Longer Active Ned Navarrete MD Active [facility] MEL[facility] 3 MG TABS Take 1 tablet at bedtime. 2013 MELATONIN 50421416166 No Longer Active Ned Navarrete MD Activ e BIOTIN 1000 MCG TABS Take 2 tablets daily BIOTI N 89469163553 No Longer Active Ned Navarrete MD Active OMEPRAZOLE 20 MG CPDR 1 tablet by mouth daily O MEPRAZOLE 81977580749 No Longer Active Mariana Moses APRN Active LATUDA 80 MG TABS 1 tablet daily LURASIDONE HCL 66828166635 No Longer Active Mariana Moses APRN Active ZOVIRAX 400 MG TABS Take 1 tablet every 8 hours as needed 2 ACYCLOVIR 81472132437 No Longer Active Ned Navarrete MD Activ e ZITHROMAX Z-CHACE 250 MG TABS 2 today, then 1 daily for 4 days 201 10/06/11 AZITHROMYCIN 69285959177 No Longer Active Ned Navarrete MD Active TOPAMAX 100 MG TABS 1 tablet daily TOPIRAMATE 54 308369557 No Longer Active Ned Navarrete MD Active AMOXICILLIN 500 MG CAPS 2 po BID x 10 days AMOX ICILLIN 73989735086 No Longer Active Saskia Simon MD PhD Active NAPROSYN 375 MG TAB 1 twice a day as needed for chest pain 04/01 NAPROXEN 34503137419 No Longer Active Saskia Simon MD PhD Active HYDROCORTISONE 2.5 % EXT CREA Apply three times a day to aff ected area HYDROCORTISONE 25831279240 No Longer Active Ned Navarrete MD Active TOPIRAMATE 50 MG TABS 1 QD TOPIRAMATE 92577802852 No Longer Active Ned Navarrete MD Active FANAPT 6 MG TABS 1 BID ILOPERIDONE 88829357014 No L onger Active Ned Navarrete MD Active CIPROFLOXACIN HCL 0.3 % SOLN 1 drop in right eye every 2 hours for 2 days, then 1 drop four times a day CIPROFLOXACIN HCL 20205575303 No Longer Active Ned Navarrete MD Active LORATADINE 10 MG TABS 1 tablet by mouth daily L ORATADINE 19434881433 No Longer Active Ned Navarrete MD Active RANITIDINE HCL 150 MG CAPS 1 twice a day RANITI DINE HCL 63454555318 No Longer Active Ned Navarrete MD Active RANITIDINE HCL 150 MG CAPS 1 twice a day RANITIDINE HCL 150 MG CAPS 004337 RANITIDINE HCL Inactive LORATADINE 10 MG TABS 1 tablet by mouth daily LORATADINE 10 MG TABS 777494 LORATADINE Inactive CIPROFLOXACIN HCL 0.3 % SOLN 1 drop in right eye every 2 hours for 2 days, then 1 drop four times a day CIPROFLOXACIN HCL 0.3 % SOLN 513118 CIPROFLOXACIN HCL Inactive FANAPT 6 MG TABS 1 BID FANAPT 6 MG TABS ILO PERIDONE Inactive TOPIRAMATE 50 MG TABS 1 QD TOPIRAMATE 50 MG TABS 1 52267 TOPIRAMATE Inactive HYDROCORTISONE 2.5 % EXT CREA Apply three times a day to aff ected area HYDROCORTISONE 2.5 % EXT CREA 818472 HYDROCORTIS ONE Inactive NAPROSYN 375 MG TAB 1 twice a day as needed for chest pain 04/01 NAPROSYN 375 MG TAB NAPROXEN Inactive TOPAMAX 100 MG TABS 1 tablet daily TOPAMAX 100 MG TABS 272048 TOPIRAMATE Inactive ZOVIRAX 400 MG TABS Take 1 tablet every 8 hours as needed 2 ZOVIRAX 400 MG TABS 110474 ACYCLOVIR Inactive LATUDA 80 MG TABS 1 tablet daily LATUDA 80 MG TA BS LURASIDONE HCL Inactive OMEPRAZOLE 20 MG CPDR 1 tablet by mouth daily OMEPRAZOLE 20 MG CPDR 783878 OMEPRAZOLE Inactive BIOTIN 1000 MCG TABS Take 2 tablets daily BIOTIN 1000 MCG TABS 440720 BIOTIN Inactive [facility] MEL[facility] 3 MG TABS Take 1 tablet at bedtime. 2013 [facility] MEL[facility] 3 MG TABS 386617 MELATONIN Inactive ZOFRAN ODT 4 MG TBDP 1 po q6hr PRN Nausea ZOFRAN ODT 4 MG TBDP 912501 ONDANSETRON Inactive ORTHO TRI-CYCLEN (28) 0.18/0.215/0.25 MG-35 MCG TABS 1 daily ORTHO TRI-CYCLEN (28) 0.18/0.215/0.25 MG-35 MCG TABS 831142 NORGESTIM-ETH ESTRAD TRIPHASIC Inactive CLARITIN 10 MG TAB 1 tablet by mouth daily as needed for itchy r khari CLARITIN 10 MG TAB 090323 LORATADINE Inactive ORTHO TRI-CYCLEN (28) 0.18/0.215/0.25 MG-35 MCG TABS 1 daily ORTHO TRI-CYCLEN (28) 0.18/0.215/0.25 MG-35 MCG TABS 794385 NORGESTIM-ETH ESTRAD TRIPHASIC Inactive HYDROXYZINE HCL 25 MG TABS Take 1-2 tablets daily 2015 HYDROXYZINE HCL 25 MG TABS 631895 HYDROXYZINE HCL Inactive LORATADINE 10 MG TABS 1 tablet by mouth daily LORATADINE 10 MG TABS 980592 LORATADINE Inactive CEPHALEXIN 500 MG ORAL CAPS CEPHALEX IN 500 MG ORAL CAPS 178808 CEPHALEXIN Inactive PREDNISONE 20 MG TABS Take 2 daily for 3 days and then 1 herman ly for 3 days PREDNISONE 20 MG TABS 980981 PREDNISONE Inacti ve AMOXICILLIN 500 MG CAPS 2 po BID x 10 days AMOXICILLIN 500 MG CAPS 964370 AMOXICILLIN Inactive ZITHROMAX Z-CHACE 250 MG TABS 2 today, then 1 daily for 4 days 201 10/06/11 ZITHROMAX Z-CHACE 250 MG TABS 8391030 AZITHROMYCIN Inac tive AUGMENTIN 875-125 MG TAB 1 po BID x 10 days with food AUGMENTIN 875-125 MG TAB 433346 AMOXICILLIN-POT CLAVULANATE Inactiv e Advance Directives Directive [...] 18 yo)) Fluzone preservative free (>3 yrs.) [[id number]] Influenza, seasonal, injectable, preservative free MPSV4 (meningococcal polysaccharide vaccination) Menactra meningococcal polysaccharide vaccine (MPSV4) hepatitis A immunization #1 Havrix-Pedi hepa titis A vaccine, unspecified formulation Adacel (Tetanus, reduced Diphtheria, and acellular Per tussis Immunization) Adacel [[id number]] tetanus toxoid, reduced diph theria toxoid, and [...] 11 .0-15.0 platelet count 210 THOUSAND/UL 10*3/mm3 268-793 1326/11/02 mean platelet volume 10.3 fL 7.5-11.5 Lab [...] N Encounters Code Encounter Date Provider Facility CPT-59793 Level 3 Est. Patient 15:21:38 TUB MENDER Rayna Pepper APRN [facility] CPT-74805 Level 3 Est. Patient 15:35:51 TUB MENDER Ned Navarrete MD [facility] CPT-02836 Level 2 Est. Patient 12:43:40 CDT Ned Navarrete MD [facility] CPT-34373 Level 3 Est. Patient 14:38:48 CDT Toni duque DO [facility] CPT-62386 Level 3 Est. Patient 09:02:58 TUB MENDER George paulson MD [facility] CPT-83740 Level 3 Est. Patient 17:42:32 CDT Ned Navarrete MD [facility] CPT-86795 Level 3 Est. Patient 11:04:31 TUB MENDER Mariana Torrez ALEXIS [facility] CPT-53059 Level 4 Est. Patient 12:27:05 TUB MENDER Ned Navarrete MD [facility] CPT-29732 Level 3 Est. Patient 11:31:58 TUB MENDER Ned Navarrete MD [facility] CPT-37919 Level 3 Est. Patient 16:49:32 CDT Ned Navarrete MD [facility] CPT-88119 Level 4 Est. Patient 14:11:59 TUB MENDER Saskia green MD PhD [facility] CPT-27387 Level 3 Est. Patient 17:34:25 CDT Ned Navarrete MD [facility] CPT-46460 Level 3 Est. Patient 17:34:19 CDT Ned Navarrete MD [facility] CPT-95475 Level 3 Est. Patient 13:46:05 CDT Ned Navarrete MD [facility] CPT-05495 Level 3 Est. Patient 16:55:47 TUB MENDER Ned Navarrete MD [facility] CPT-56170 Level 2 Est. Patient 17:33:08 TUB MENDER Ned Navarrete MD [facility] CPT-38865 Level 3 Est. Patient 16:25:26 TUB MENDER Ned Navarrete MD [facility] Procedures Code Procedure Name Date Entry Date Standard Desc ription CPT-43943 Visit 15:07:16 TUB MENDER CPT-83438 Visit 16:49:41 TUB MENDER CPT-85430 Sono OB limited - XRAY USE ONLY 16:38:01 CS T CPT-57974 Sono OB comp > 14 weeks - XRAY USE ONLY 17:00:59 TUB MENDER CPT-39934 UA w micro - LAB USE ONLY 16:59:38 CDT 2015 CPT-43066 TSH - LAB USE ONLY 16:59:38 CDT CPT-94891 Venipuncture Draw Fee 16:59:38 CDT CPT-51628 Spec Collection and Handling Fee 14:01:24 C DT CPT-63965 Visit 14:01:24 CDT CPT-033 KB Med Screen 14:03:18 CDT CPT-033 KB Med Screen 11:04:57 CDT CPT-033 KB Med Screen 10:29:44 CDT CPT-29605 Administration 2+ single or combination vaccines inc oral 14:02:47 TUB MENDER CPT-60723 Administration single or combination vac cine inc oral 14:02:47 TUB MENDER CPT-70485 Hepatitis A ped/adol 2 dose schedule 14:02:47 TUB MENDER CPT-54247 Gardasil 14:02:47 TUB MENDER CPT-56881 Administration single or combination vac cine inc oral 11:40:38 TUB MENDER CPT-56217 Gardasil 11:40:38 TUB MENDER CPT-35526 Administration single or combination vac cine inc oral 09:45:00 CDT CPT-11997 Influenza Preservative Free split virus >age 3 09:45:00 CDT CPT-25828 Venipuncture Draw Fee 07:59:02 CDT
--- OUTSIDE RECORDS SUMMARY | 2019-10-10 20:29 | XMS REPORT | Clinical Summary ---
Author Author Admin, Son Rodriguez [facility] Address Unknown Phone Unavailable Allergies, Adverse Reactions, [...] NO LOSS OF CONSCIOUSNESS 850.0 Resolv ed Nde Navarrete MD Concussion with no loss of [...] condition or complication Methamphetamine abuse 305.70 [facility] Amphetamine or related acting [...] 1 herman ly for 3 days PREDNISONE 88899524094 No Longer Active Ned pérez MD Active CEPHALEXIN 500 MG ORAL CAPS CEPHALEXIN 44102738256 No Longer Active Ned Navarrete MD Active LATUDA 20 MG ORAL TABS LURASIDONE HCL 2028225 0230 Active Breanne Madl [employer] ASSEMBLER Active LORATADINE 10 MG TABS 1 tablet by mouth daily L ORATADINE 05991067510 No Longer Active Breanne Madl [employer] ASSEMBLER Active HYDROXYZINE HCL 25 MG TABS Take 1-2 tablets daily 2015 HYDROXYZINE HCL 35348291914 No Longer Active Breanne Madl [employer] ASSEMBLER Active ORTHO TRI-CYCLEN (28) 0.18/0.215/0.25 MG-35 MCG TABS 1 daily NORGESTIM-ETH ESTRAD TRIPHASIC 48657120191 No Longer Active Breanne Madl [employer] ASSEMBLER Active CLARITIN 10 MG TAB 1 tablet by mouth daily as needed for itchy r khari LORATADINE 47599053009 No Longer Active Ned Navarrete MD Active AUGMENTIN 875-125 MG TAB 1 po BID x 10 days with food AMOXICILLIN-POT CLAVULANATE 72636554154 No Longer Active Toin Washington DO Active ORTHO TRI-CYCLEN (28) 0.18/0.215/0.25 MG-35 MCG TABS 1 daily NORGESTIM-ETH ESTRAD TRIPHASIC 25863937843 No Longer Active Ned Navarrete MD Active ZOFRAN ODT 4 MG TBDP 1 po q6hr PRN Nausea ONDAN SETRON 01686262639 No Longer Active Ned Navarrete MD Active [facility] MEL[facility] 3 MG TABS Take 1 tablet at bedtime. 2013 MELATONIN 19899982976 No Longer Active Ned Navarrete MD Activ e BIOTIN 1000 MCG TABS Take 2 tablets daily BIOTI N 25842744288 No Longer Active Ned Navarrete MD Active OMEPRAZOLE 20 MG CPDR 1 tablet by mouth daily O MEPRAZOLE 60971256744 No Longer Active Mariana Moses APRN Active LATUDA 80 MG TABS 1 tablet daily LURASIDONE HCL 91318025101 No Longer Active Mariana Moses APRN Active ZOVIRAX 400 MG TABS Take 1 tablet every 8 hours as needed 2 ACYCLOVIR 15445322659 No Longer Active Ned Navarrete MD Activ e ZITHROMAX Z-CHACE 250 MG TABS 2 today, then 1 daily for 4 days 201 10/06/11 AZITHROMYCIN 83705144179 No Longer Active Ned Navarrete MD Active TOPAMAX 100 MG TABS 1 tablet daily TOPIRAMATE 54 519876131 No Longer Active Ned Navarrete MD Active AMOXICILLIN 500 MG CAPS 2 po BID x 10 days AMOX ICILLIN 17800015201 No Longer Active Saskia Simon MD PhD Active NAPROSYN 375 MG TAB 1 twice a day as needed for chest pain 04/01 NAPROXEN 78122234912 No Longer Active Saskia Simon MD PhD Active HYDROCORTISONE 2.5 % EXT CREA Apply three times a day to aff ected area HYDROCORTISONE 80891761514 No Longer Active Ned Navarrete MD Active TOPIRAMATE 50 MG TABS 1 QD TOPIRAMATE 67465872845 No Longer Active Ned Navarrete MD Active FANAPT 6 MG TABS 1 BID ILOPERIDONE 51721958170 No L onger Active Ned Navarrete MD Active CIPROFLOXACIN HCL 0.3 % SOLN 1 drop in right eye every 2 hours for 2 days, then 1 drop four times a day CIPROFLOXACIN HCL 70259398924 No Longer Active Ned Navarrete MD Active LORATADINE 10 MG TABS 1 tablet by mouth daily L ORATADINE 06737113785 No Longer Active Ned Navarrete MD Active RANITIDINE HCL 150 MG CAPS 1 twice a day RANITI DINE HCL 49788434155 No Longer Active Ned Navarrete MD Active RANITIDINE HCL 150 MG CAPS 1 twice a day RANITIDINE HCL 150 MG CAPS 298471 RANITIDINE HCL Inactive LORATADINE 10 MG TABS 1 tablet by mouth daily LORATADINE 10 MG TABS 125703 LORATADINE Inactive CIPROFLOXACIN HCL 0.3 % SOLN 1 drop in right eye every 2 hours for 2 days, then 1 drop four times a day CIPROFLOXACIN HCL 0.3 % SOLN 300122 CIPROFLOXACIN HCL Inactive FANAPT 6 MG TABS 1 BID FANAPT 6 MG TABS ILO PERIDONE Inactive TOPIRAMATE 50 MG TABS 1 QD TOPIRAMATE 50 MG TABS 1 44077 TOPIRAMATE Inactive HYDROCORTISONE 2.5 % EXT CREA Apply three times a day to aff ected area HYDROCORTISONE 2.5 % EXT CREA 118755 HYDROCORTIS ONE Inactive NAPROSYN 375 MG TAB 1 twice a day as needed for chest pain 04/01 NAPROSYN 375 MG TAB NAPROXEN Inactive TOPAMAX 100 MG TABS 1 tablet daily TOPAMAX 100 MG TABS 391566 TOPIRAMATE Inactive ZOVIRAX 400 MG TABS Take 1 tablet every 8 hours as needed 2 ZOVIRAX 400 MG TABS 022921 ACYCLOVIR Inactive LATUDA 80 MG TABS 1 tablet daily LATUDA 80 MG TA BS LURASIDONE HCL Inactive OMEPRAZOLE 20 MG CPDR 1 tablet by mouth daily OMEPRAZOLE 20 MG CPDR 250739 OMEPRAZOLE Inactive BIOTIN 1000 MCG TABS Take 2 tablets daily BIOTIN 1000 MCG TABS 743633 BIOTIN Inactive [facility] MEL[facility]IN 3 MG TABS Take 1 tablet at bedtime. 2013 [facility] MEL[facility] 3 MG TABS 700638 MELATONIN Inactive ZOFRAN ODT 4 MG TBDP 1 po q6hr PRN Nausea ZOFRAN ODT 4 MG TBDP 151992 ONDANSETRON Inactive ORTHO TRI-CYCLEN (28) 0.18/0.215/0.25 MG-35 MCG TABS 1 daily ORTHO TRI-CYCLEN (28) 0.18/0.215/0.25 MG-35 MCG TABS 016668 NORGESTIM-ETH ESTRAD TRIPHASIC Inactive CLARITIN 10 MG TAB 1 tablet by mouth daily as needed for itchy r khari CLARITIN 10 MG TAB 887377 LORATADINE Inactive ORTHO TRI-CYCLEN (28) 0.18/0.215/0.25 MG-35 MCG TABS 1 daily ORTHO TRI-CYCLEN (28) 0.18/0.215/0.25 MG-35 MCG TABS 844443 NORGESTIM-ETH ESTRAD TRIPHASIC Inactive HYDROXYZINE HCL 25 MG TABS Take 1-2 tablets daily 2015 HYDROXYZINE HCL 25 MG TABS 114286 HYDROXYZINE HCL Inactive LORATADINE 10 MG TABS 1 tablet by mouth daily LORATADINE 10 MG TABS 712675 LORATADINE Inactive CEPHALEXIN 500 MG ORAL CAPS CEPHALEX IN 500 MG ORAL CAPS 537295 CEPHALEXIN Inactive PREDNISONE 20 MG TABS Take 2 daily for 3 days and then 1 herman ly for 3 days PREDNISONE 20 MG TABS 043562 PREDNISONE Inacti ve AMOXICILLIN 500 MG CAPS 2 po BID x 10 days AMOXICILLIN 500 MG CAPS 886942 AMOXICILLIN Inactive ZITHROMAX Z-CHACE 250 MG TABS 2 today, then 1 daily for 4 days 201 10/06/11 ZITHROMAX Z-CHACE 250 MG TABS 9641109 AZITHROMYCIN Inac tive AUGMENTIN 875-125 MG TAB 1 po BID x 10 days with food AUGMENTIN 875-125 MG TAB 464854 AMOXICILLIN-POT CLAVULANATE Inactiv e Advance Directives Directive [...] 18 yo)) Fluzone preservative free (>3 yrs.) [[id number]] Influenza, seasonal, injectable, preservative free MPSV4 (meningococcal polysaccharide vaccination) Menactra meningococcal polysaccharide vaccine (MPSV4) hepatitis A immunization #1 Havrix-Pedi hepa titis A vaccine, unspecified formulation Adacel (Tetanus, reduced Diphtheria, and acellular Per tussis Immunization) Adacel [[id number]] tetanus toxoid, reduced diph theria toxoid, and [...] Range Description blood pressure, diastolic - 8462-4 73 mm[Hg] [...] 11 .0-15.0 platelet count 210 THOUSAND/UL 10*3/mm3 560-473 8452/11/02 mean platelet volume 10.3 fL 7.5-11.5 Lab [...] N Encounters Code Encounter Date Provider Facility CPT-91160 Level 3 Est. Patient 15:21:38 JAVA DEVELOPER CONSULTANT Rayna Pepper APRN [facility] CPT-13774 Level 3 Est. Patient 15:35:51 JAVA DEVELOPER CONSULTANT Ned Navarrete MD [facility] CPT-41171 Level 2 Est. Patient 12:43:40 CDT Ned Navarrete MD [facility] CPT-93268 Level 3 Est. Patient 14:38:48 CDT Toni duque DO [facility] CPT-15657 Level 3 Est. Patient 09:02:58 JAVA DEVELOPER CONSULTANT George paulson MD [facility] CPT-30311 Level 3 Est. Patient 17:42:32 CDT Ned Navarrete MD [facility] CPT-53887 Level 3 Est. Patient 11:04:31 JAVA DEVELOPER CONSULTANT Mariana Torrez APRN [facility] CPT-79232 Level 4 Est. Patient 12:27:05 JAVA DEVELOPER CONSULTANT Ned Navarrete MD [facility] CPT-31112 Level 3 Est. Patient 11:31:58 JAVA DEVELOPER CONSULTANT Ned Navarrete MD [facility] CPT-70503 Level 3 Est. Patient 16:49:32 CDT Ned Navarrete MD [facility] CPT-46097 Level 4 Est. Patient 14:11:59 JAVA DEVELOPER CONSULTANT Saskia green MD PhD [facility] CPT-59175 Level 3 Est. Patient 17:34:25 CDT Ned Navarrete MD [facility] CPT-37795 Level 3 Est. Patient 17:34:19 CDT Ned Navarrete MD [facility] CPT-78858 Level 3 Est. Patient 13:46:05 CDT Ned Navarrete MD [facility] CPT-49168 Level 3 Est. Patient 16:55:47 JAVA DEVELOPER CONSULTANT Ned Navarrete MD [facility] CPT-91639 Level 2 Est. Patient 17:33:08 JAVA DEVELOPER CONSULTANT Ned Navarrete MD [facility] CPT-97773 Level 3 Est. Patient 16:25:26 JAVA DEVELOPER CONSULTANT Ned Navarrete MD [facility] Procedures Code Procedure Name Date Entry Date Standard Desc ription CPT-17286 Visit 15:17:20 CDT CPT-65127 Visit 15:57:29 CDT CPT-01424 First Vx - Ix admin via ID I M or jet injects without counseling by physician 15:53:15 CDT CPT-73799 [facility] Intramuscular Suspension 5-2.5-18.5 201 01/28/11 15:53:14 CDT CPT-06859 Tdap 7yrs or > 14:41:06 CDT CPT-36093 Visit 17:47:08 CDT CPT-63296 OBGTT 1 - LAB USE ONLY 10:15:57 CDT CPT-26414 Venipuncture Draw Fee 10:15:57 CDT CPT-99991 Visit 15:07:16 JAVA DEVELOPER CONSULTANT CPT-93922 Visit 16:49:41 JAVA DEVELOPER CONSULTANT CPT-51231 Sono OB limited - XRAY USE ONLY 16:38:01 CS T CPT-41022 Sono OB comp > 14 weeks - XRAY USE ONLY 17:00:59 JAVA DEVELOPER CONSULTANT CPT-39347 UA w micro - LAB USE ONLY 16:59:38 CDT 2015 CPT-17524 TSH - LAB USE ONLY 16:59:38 CDT CPT-31120 Venipuncture Draw Fee 16:59:38 CDT CPT-69379 Spec Collection and Handling Fee 14:01:24 C DT CPT-34000 Visit 14:01:24 CDT CPT-033 KB Med Screen 14:03:18 CDT CPT-033 [facility] Med Screen 11:04:57 CDT CPT-033 [facility] Med Screen 10:29:44 CDT CPT-03819 Administration 2+ single or combination vaccines inc oral 14:02:47 JAVA DEVELOPER CONSULTANT CPT-81992 Administration single or combination vac cine inc oral 14:02:47 JAVA DEVELOPER CONSULTANT CPT-03342 Hepatitis A ped/adol 2 dose schedule 14:02:47 JAVA DEVELOPER CONSULTANT CPT-68956 Gardasil 14:02:47 JAVA DEVELOPER CONSULTANT CPT-22450 Administration single or combination vac cine inc oral 11:40:38 JAVA DEVELOPER CONSULTANT CPT-00721 Gardasil 11:40:38 JAVA DEVELOPER CONSULTANT CPT-60163 Administration single or combination vac cine inc oral 09:45:00 CDT CPT-88108 Influenza Preservative Free split virus >age 3 09:45:00 CDT CPT-89081 Venipuncture Draw Fee 07:59:02 CDT
--- OUTSIDE RECORDS SUMMARY | 2019-10-10 20:29 | XMS REPORT | Clinical Summary ---
Author Author Admin, Son Chan Organization [employer] Address Unknown Phone Unavailable Allergies, Adverse Reactions, [...] 1 [address]man ly for 3 days PREDNISONE [id number] No Longer Active Ned pérez MD Active CEPHALEXIN 500 MG ORAL CAPS CEPHALEXIN 52556559399 No Longer Active Ned Navarrete MD Active LATUDA 20 MG ORAL TABS LURASIDONE HCL 0632971 0230 Active Breanne Madl SAUSAGE GRINDER Active LORATADINE 10 MG TABS 1 tablet by mouth daily L ORATADINE 84065857281 No Longer Active Breanne Madl SAUSAGE GRINDER Active HYDROXYZINE HCL 25 MG TABS Take 1-2 tablets daily 2015 HYDROXYZINE HCL 77988318871 No Longer Active Breanne Madl SAUSAGE GRINDER Active ORTHO TRI-CYCLEN (28) 0.18/0.215/0.25 MG-35 MCG TABS 1 daily NORGESTIM-ETH ESTRAD TRIPHASIC 63041872208 No Longer Active Breanne Madl SAUSAGE GRINDER Active CLARITIN 10 MG TAB 1 tablet by mouth daily as needed for itchy r hkari LORATADINE 74261709022 No Longer Active Ned Navarrete MD Active AUGMENTIN 875-125 MG TAB 1 po BID x 10 days with food AMOXICILLIN-POT CLAVULANATE 84026568585 No Longer Active Toni Washington DO Active ORTHO TRI-CYCLEN (28) 0.18/0.215/0.25 MG-35 MCG TABS 1 daily NORGESTIM-ETH ESTRAD TRIPHASIC 25501776073 No Longer Active Ned Navarrete MD Active ZOFRAN ODT 4 MG TBDP 1 po q6hr PRN Nausea ONDAN SETRON 55635868354 No Longer Active Ned Navarrete MD Active [facility] 3 MG TABS Take 1 tablet at bedtime. 2013 MELATONIN 19196543332 No Longer Active Ned Navarrete MD Activ e BIOTIN 1000 MCG TABS Take 2 tablets daily BIOTI N 05946652871 No Longer Active Ned Navarrete MD Active OMEPRAZOLE 20 MG CPDR 1 tablet by mouth daily O MEPRAZOLE 46124542452 No Longer Active Mariana Moses APRN Active LATUDA 80 MG TABS 1 tablet daily LURASIDONE HCL 22095744500 No Longer Active Mariana Moses APRN Active ZOVIRAX 400 MG TABS Take 1 tablet every 8 hours as needed 2 ACYCLOVIR 46164246503 No Longer Active Ned Navarrete MD Activ e ZITHROMAX Z-CHACE 250 MG TABS 2 today, then 1 daily for 4 days 201 10/06/11 AZITHROMYCIN 05600920610 No Longer Active Ned Navarrete MD Active TOPAMAX 100 MG TABS 1 tablet daily TOPIRAMATE 54 601460600 No Longer Active Ned Navarrete MD Active AMOXICILLIN 500 MG CAPS 2 po BID x 10 days AMOX ICILLIN 94283089587 No Longer Active Saskia Simon MD PhD Active NAPROSYN 375 MG TAB 1 twice a day as needed for chest pain 04/01 NAPROXEN 92650665500 No Longer Active Saskia Simon MD PhD Active HYDROCORTISONE 2.5 % EXT CREA Apply three times a day to aff ected area HYDROCORTISONE 16634271867 No Longer Active Ned Navarrete MD Active TOPIRAMATE 50 MG TABS 1 QD TOPIRAMATE 24563363203 No Longer Active Ned Navarrete MD Active FANAPT 6 MG TABS 1 BID ILOPERIDONE 97758270646 No L onger Active Ned Navarrete MD Active CIPROFLOXACIN HCL 0.3 % SOLN 1 drop in right eye every 2 hours for 2 days, then 1 drop four times a day CIPROFLOXACIN HCL 78902146573 No Longer Active Ned Navarrete MD Active LORATADINE 10 MG TABS 1 tablet by mouth daily L ORATADINE 00261885005 No Longer Active Ned Navarrete MD Active RANITIDINE HCL 150 MG CAPS 1 twice a day RANITI DINE HCL 65678332375 No Longer Active Ned Navarrete MD Active RANITIDINE HCL 150 MG CAPS 1 twice a day RANITIDINE HCL 150 MG CAPS 572464 RANITIDINE HCL Inactive LORATADINE 10 MG TABS 1 tablet by mouth daily LORATADINE 10 MG TABS 019380 LORATADINE Inactive CIPROFLOXACIN HCL 0.3 % SOLN 1 drop in right eye every 2 hours for 2 days, then 1 drop four times a day CIPROFLOXACIN HCL 0.3 % SOLN 884823 CIPROFLOXACIN HCL Inactive FANAPT 6 MG TABS 1 BID FANAPT 6 MG TABS ILO PERIDONE Inactive TOPIRAMATE 50 MG TABS 1 QD TOPIRAMATE 50 MG TABS 1 67356 TOPIRAMATE Inactive HYDROCORTISONE 2.5 % EXT CREA Apply three times a day to aff ected area HYDROCORTISONE 2.5 % EXT CREA 080601 HYDROCORTIS ONE Inactive NAPROSYN 375 MG TAB 1 twice a day as needed for chest pain 04/01 NAPROSYN 375 MG TAB NAPROXEN Inactive TOPAMAX 100 MG TABS 1 tablet daily TOPAMAX 100 MG TABS 583433 TOPIRAMATE Inactive ZOVIRAX 400 MG TABS Take 1 tablet every 8 hours as needed 2 ZOVIRAX 400 MG TABS 959203 ACYCLOVIR Inactive LATUDA 80 MG TABS 1 tablet daily LATUDA 80 MG TA BS LURASIDONE HCL Inactive OMEPRAZOLE 20 MG CPDR 1 tablet by mouth daily OMEPRAZOLE 20 MG CPDR 992333 OMEPRAZOLE Inactive BIOTIN 1000 MCG TABS Take 2 tablets daily BIOTIN 1000 MCG TABS 819918 BIOTIN Inactive [facility] 3 MG TABS Take 1 tablet at bedtime. 2013 [facility] MEL[facility] 3 MG TABS 085378 MELATONIN Inactive ZOFRAN ODT 4 MG TBDP 1 po q6hr PRN Nausea ZOFRAN ODT 4 MG TBDP 527948 ONDANSETRON Inactive ORTHO TRI-CYCLEN (28) 0.18/0.215/0.25 MG-35 MCG TABS 1 daily ORTHO TRI-CYCLEN (28) 0.18/0.215/0.25 MG-35 MCG TABS 319013 NORGESTIM-ETH ESTRAD TRIPHASIC Inactive CLARITIN 10 MG TAB 1 tablet by mouth daily as needed for itchy r khari CLARITIN 10 MG TAB 651739 LORATADINE Inactive ORTHO TRI-CYCLEN (28) 0.18/0.215/0.25 MG-35 MCG TABS 1 daily ORTHO TRI-CYCLEN (28) 0.18/0.215/0.25 MG-35 MCG TABS 044070 NORGESTIM-ETH ESTRAD TRIPHASIC Inactive HYDROXYZINE HCL 25 MG TABS Take 1-2 tablets daily 2015 HYDROXYZINE HCL 25 MG TABS 840169 HYDROXYZINE HCL Inactive LORATADINE 10 MG TABS 1 tablet by mouth daily LORATADINE 10 MG TABS 910693 LORATADINE Inactive CEPHALEXIN 500 MG ORAL CAPS CEPHALEX IN 500 MG ORAL CAPS 425098 CEPHALEXIN Inactive PREDNISONE 20 MG TABS Take 2 daily for 3 days and then 1 herman ly for 3 days PREDNISONE 20 MG TABS 755146 PREDNISONE Inacti ve AMOXICILLIN 500 MG CAPS 2 po BID x 10 days AMOXICILLIN 500 MG CAPS 882087 AMOXICILLIN Inactive ZITHROMAX Z-CHACE 250 MG TABS 2 today, then 1 daily for 4 days 201 10/06/11 ZITHROMAX Z-CHACE 250 MG TABS 8122886 AZITHROMYCIN Inac tive AUGMENTIN 875-125 MG TAB 1 po BID x 10 days with food AUGMENTIN 875-125 MG TAB 420436 AMOXICILLIN-POT CLAVULANATE Inactiv e Advance Directives Directive [...] 18 yo)) Fluzone preservative free (>3 yrs.) [[id number]] Influenza, seasonal, injectable, preservative free MPSV4 (meningococcal polysaccharide vaccination) Menactra meningococcal polysaccharide vaccine (MPSV4) hepatitis A immunization #1 Havrix-Pedi hepa titis A vaccine, unspecified formulation Adacel (Tetanus, reduced Diphtheria, and acellular Per tussis Immunization) Adacel [[id number]] tetanus toxoid, reduced diph theria toxoid, and [...] 11 .0-15.0 platelet count 210 THOUSAND/UL 10*3/mm3 042-666 3413/11/02 mean platelet volume 10.3 fL 7.5-11.5 Lab [...] N Encounters Code Encounter Date Provider Facility CPT-76699 Level 3 Est. Patient 15:21:38 OLIVIA Pepper [facility] CPT-47488 Level 3 Est. Patient 15:35:51 STEAM HEATING INSTALLER Ned Navarrete MD [facility]-67471 Level 2 Est. Patient 12:43:40 CDT Ned Navarrete MD [facility]-41426 Level 3 Est. Patient 14:38:48 CDT Toni duque DO [facility] CPT-56111 Level 3 Est. Patient 09:02:58 STEAM HEATING INSTALLER George paulson MD [facility] CPT-62353 Level 3 Est. Patient 17:42:32 CDT Ned Navarrete MD [facility]-98279 Level 3 Est. Patient 11:04:31 STEAM HEATING INSTALLER Mariana Torrez [facility] CPT-70417 Level 4 Est. Patient 12:27:05 STEAM HEATING INSTALLER Ned Navarrete MD [facility]-41259 Level 3 Est. Patient 11:31:58 STEAM HEATING INSTALLER Ned Navarrete MD [facility] CPT-43417 Level 3 Est. Patient 16:49:32 CDT Ned Navarrete MD [facility]-62122 Level 4 Est. Patient 14:11:59 STEAM HEATING INSTALLER Saskia green MD PhD [facility] CPT-47689 Level 3 Est. Patient 17:34:25 CDT Ned Navarrete MD [facility] CPT-98283 Level 3 Est. Patient 17:34:19 CDT Ned Navarrete MD [facility] CPT-69192 Level 3 Est. Patient 13:46:05 CDT Ned Navarrete MD [facility]-00738 Level 3 Est. Patient 16:55:47 STEAM HEATING INSTALLER Ned Navarrete MD [facility]-79569 Level 2 Est. Patient 17:33:08 STEAM HEATING INSTALLER Ned Navarrete MD [facility]-77899 Level 3 Est. Patient 16:25:26 STEAM HEATING INSTALLER Ned Navarrete MD [facility] Procedures Code Procedure Name Date Entry Date Standard Desc ription CPT-35297 Visit 14:52:59 CDT CPT-32325 Visit 15:17:20 CDT CPT-87648 Visit 15:57:29 CDT CPT-90442 First Vx - Ix admin via ID I M or jet injects without counseling by physician 15:53:15 CDT CPT-81120 Boostrix Intramuscular Suspension 5-2.5-18.5 201 01/28/11 15:53:14 CDT CPT-71971 Tdap 7yrs or > 14:41:06 CDT CPT-71168 Visit 17:47:08 CDT CPT-41115 OBGTT 1 - LAB USE ONLY 10:15:57 CDT CPT-88648 Venipuncture Draw Fee 10:15:57 CDT CPT-07376 Visit 15:07:16 STEAM HEATING INSTALLER CPT-15735 Visit 16:49:41 STEAM HEATING INSTALLER CPT-54323 Sono OB limited - XRAY USE ONLY 16:38:01 CS T CPT-20775 Sono OB comp > 14 weeks - XRAY USE ONLY 17:00:59 STEAM HEATING INSTALLER CPT-93520 UA w micro - LAB USE ONLY 16:59:38 CDT 2015 CPT-17728 TSH - LAB USE ONLY 16:59:38 CDT CPT-79207 Venipuncture Draw Fee 16:59:38 CDT CPT-70280 Spec Collection and Handling Fee 14:01:24 C DT CPT-93200 Visit 14:01:24 CDT CPT-033 [facility] Med Screen 14:03:18 CDT CPT-033 [facility] Med Screen 11:04:57 CDT CPT-033 [facility] Med Screen 10:29:44 CDT CPT-49286 Administration 2+ single or combination vaccines inc oral 14:02:47 STEAM HEATING INSTALLER CPT-43313 Administration single or combination vac cine inc oral 14:02:47 STEAM HEATING INSTALLER CPT-05814 Hepatitis A ped/adol 2 dose schedule 14:02:47 STEAM HEATING INSTALLER CPT-47910 Gardasil 14:02:47 STEAM HEATING INSTALLER CPT-29470 Administration single or combination vac cine inc oral 11:40:38 STEAM HEATING INSTALLER CPT-68974 Gardasil 11:40:38 STEAM HEATING INSTALLER CPT-55712 Administration single or combination vac cine inc oral 09:45:00 CDT CPT-70887 Influenza Preservative Free split virus >age 3 09:45:00 CDT CPT-80612 Venipuncture Draw Fee 07:59:02 CDT
--- OUTSIDE RECORDS SUMMARY | 2019-10-10 20:29 | XMS REPORT | Clinical Summary ---
[...] LATUDA 20 MG ORAL TABS LURASIDONE HCL 8162133 0230 Active Breanne Madl RECREATIONAL DIRECTOR Active CEPHALEXIN 500 MG ORAL CAPS CEPHALEXIN 015800 64948 Active Breanne Madl RECREATIONAL DIRECTOR Active LORATADINE 10 MG TABS 1 tablet by mouth daily L ORATADINE 76478538022 No Longer Active Breanne Madl RECREATIONAL DIRECTOR Active HYDROXYZINE HCL 25 MG TABS Take 1-2 tablets daily 2015 HYDROXYZINE HCL 67730223226 No Longer Active Breanne Madl RECREATIONAL DIRECTOR Active ORTHO TRI-CYCLEN (28) 0.18/0.215/0.25 MG-35 MCG TABS 1 daily NORGESTIM-ETH ESTRAD TRIPHASIC 61510312696 No Longer Active Breanne Madl RECREATIONAL DIRECTOR Active CLARITIN 10 MG TAB 1 tablet by mouth daily as needed for itchy r khari LORATADINE 17516964639 No Longer Active Ned Navarrete MD Active AUGMENTIN 875-125 MG TAB 1 po BID x 10 days with food AMOXICILLIN-POT CLAVULANATE 63313720583 No Longer Active Toni Washington DO Active ORTHO TRI-CYCLEN (28) 0.18/0.215/0.25 MG-35 MCG TABS 1 daily NORGESTIM-ETH ESTRAD TRIPHASIC 93047438377 No Longer Active Ned Navarrete MD Active ZOFRAN ODT 4 MG TBDP 1 po q6hr PRN Nausea ONDAN SETRON 24935798263 No Longer Active Ned Navarrete MD Active [facility] MEL[facility] 3 MG TABS Take 1 tablet at bedtime. 2013 MELATONIN 33912597037 No Longer Active Ned Navarrete MD Activ e BIOTIN 1000 MCG TABS Take 2 tablets daily BIOTI N 48058496547 No Longer Active Ned Navarrete MD Active OMEPRAZOLE 20 MG CPDR 1 tablet by mouth daily O MEPRAZOLE 91703083077 No Longer Active Mariana Moses APRN Active LATUDA 80 MG TABS 1 tablet daily LURASIDONE HCL 33139988022 No Longer Active Mariana Moses APRN Active ZOVIRAX 400 MG TABS Take 1 tablet every 8 hours as needed 2 ACYCLOVIR 52997515729 No Longer Active Ned Navarrete MD Activ e ZITHROMAX Z-CHACE 250 MG TABS 2 today, then 1 daily for 4 days 201 10/06/11 AZITHROMYCIN 81916467356 No Longer Active Ned Navarrete MD Active TOPAMAX 100 MG TABS 1 tablet daily TOPIRAMATE 54 037290892 No Longer Active Ned Navarrete MD Active AMOXICILLIN 500 MG CAPS 2 po BID x 10 days AMOX ICILLIN 49712764808 No Longer Active Saskia Simon MD PhD Active NAPROSYN 375 MG TAB 1 twice a day as needed for chest pain 04/01 NAPROXEN 24078210253 No Longer Active Saskia Simon MD PhD Active HYDROCORTISONE 2.5 % EXT CREA Apply three times a day to aff ected area HYDROCORTISONE 89919534708 No Longer Active Ned Navarrete MD Active TOPIRAMATE 50 MG TABS 1 QD TOPIRAMATE 08814901679 No Longer Active Ned Navarrete MD Active FANAPT 6 MG TABS 1 BID ILOPERIDONE 88958521642 No L onger Active Ned Navarrete MD Active CIPROFLOXACIN HCL 0.3 % SOLN 1 drop in right eye every 2 hours for 2 days, then 1 drop four times a day CIPROFLOXACIN HCL 48502137189 No Longer Active Ned Navarrete MD Active LORATADINE 10 MG TABS 1 tablet by mouth daily L ORATADINE 85082263186 No Longer Active Ned Navarrete MD Active RANITIDINE HCL 150 MG CAPS 1 twice a day RANITI DINE HCL 63287293629 No Longer Active Ned Navarrete MD Active RANITIDINE HCL 150 MG CAPS 1 twice a day RANITIDINE HCL 150 MG CAPS 547632 RANITIDINE HCL Inactive LORATADINE 10 MG TABS 1 tablet by mouth daily LORATADINE 10 MG TABS 585797 LORATADINE Inactive CIPROFLOXACIN HCL 0.3 % SOLN 1 drop in right eye every 2 hours for 2 days, then 1 drop four times a day CIPROFLOXACIN HCL 0.3 % SOLN 938753 CIPROFLOXACIN HCL Inactive FANAPT 6 MG TABS 1 BID FANAPT 6 MG TABS ILO PERIDONE Inactive TOPIRAMATE 50 MG TABS 1 QD TOPIRAMATE 50 MG TABS 1 62339 TOPIRAMATE Inactive HYDROCORTISONE 2.5 % EXT CREA Apply three times a day to aff ected area HYDROCORTISONE 2.5 % EXT CREA 207862 HYDROCORTIS ONE Inactive NAPROSYN 375 MG TAB 1 twice a day as needed for chest pain 04/01 NAPROSYN 375 MG TAB NAPROXEN Inactive TOPAMAX 100 MG TABS 1 tablet daily TOPAMAX 100 MG TABS 010633 TOPIRAMATE Inactive ZOVIRAX 400 MG TABS Take 1 tablet every 8 hours as needed ZOVIRAX 400 MG TABS 014567 ACYCLOVIR Inactive LATUDA 80 MG TABS 1 tablet daily LATUDA 80 MG TA BS LURASIDONE HCL Inactive OMEPRAZOLE 20 MG CPDR 1 tablet by mouth daily OMEPRAZOLE 20 MG CPDR 716755 OMEPRAZOLE Inactive BIOTIN 1000 MCG TABS Take 2 tablets daily BIOTIN 1000 MCG TABS 800810 BIOTIN Inactive [facility] M[facility] 3 MG TABS Take 1 tablet at bedtime. 2013 [facility] M[facility] 3 MG TABS 712491 MELATONIN Inactive ZOFRAN ODT 4 MG TBDP 1 po q6hr PRN Nausea ZOFRAN ODT 4 MG TBDP 169577 ONDANSETRON Inactive ORTHO TRI-CYCLEN (28) 0.18/0.215/0.25 MG-35 MCG TABS 1 daily ORTHO TRI-CYCLEN (28) 0.18/0.215/0.25 MG-35 MCG TABS 558945 NORGESTIM-ETH ESTRAD TRIPHASIC Inactive CLARITIN 10 MG TAB 1 tablet by mouth daily as needed for itchy r khari CLARITIN 10 MG TAB 390266 LORATADINE Inactive ORTHO TRI-CYCLEN (28) 0.18/0.215/0.25 MG-35 MCG TABS 1 daily ORTHO TRI-CYCLEN (28) 0.18/0.215/0.25 MG-35 MCG TABS 678408 NORGESTIM-ETH ESTRAD TRIPHASIC Inactive HYDROXYZINE HCL 25 MG TABS Take 1-2 tablets daily 2015 HYDROXYZINE HCL 25 MG TABS 790796 HYDROXYZINE HCL Inactive LORATADINE 10 MG TABS 1 tablet by mouth daily LORATADINE 10 MG TABS 643561 LORATADINE Inactive AMOXICILLIN 500 MG CAPS 2 po BID x 10 days AMOXICILLIN 500 MG CAPS 198958 AMOXICILLIN Inactive ZITHROMAX Z-CHACE 250 MG TABS 2 today, then 1 daily for 4 days 201 10/06/11 ZITHROMAX Z-CHACE 250 MG TABS 8723474 AZITHROMYCIN Inac tive AUGMENTIN 875-125 MG TAB 1 po BID x 10 days with food AUGMENTIN 875-125 MG TAB 217252 AMOXICILLIN-POT CLAVULANATE Inactiv e Advance Directives Directive [...] 18 yo)) Fluzone preservative free (>3 yrs.) [[id number]] Influenza, seasonal, injectable, preservative free MPSV4 (meningococcal polysaccharide vaccination) Menactra meningococcal polysaccharide vaccine (MPSV4) hepatitis A immunization #1 Havrix-Pedi hepa titis A vaccine, unspecified formulation Adacel (Tetanus, reduced Diphtheria, and acellular Per tussis Immunization) Adacel [[id number]] tetanus toxoid, reduced diph theria toxoid, and [...] Measured Encounters Code Encounter Date Provider Facility CPT-29595 Level 2 Est. Patient 12:43:40 CDT Ned Navarrete MD [facility] CPT-84081 Level 3 Est. Patient 14:38:48 CDT Toni duque DO [facility] CPT-16436 Level 3 Est. Patient 09:02:58 RFID MANAGER George paulson MD [facility] CPT-37256 Level 3 Est. Patient 17:42:32 CDT Ned Navarrete MD [facility] CPT-28461 Level 3 Est. Patient 11:04:31 RFID MANAGER Mariana Torrez APRN [facility] CPT-02290 Level 4 Est. Patient 12:27:05 RFID MANAGER Ned Navarrete MD [facility] CPT-36223 Level 3 Est. Patient 11:31:58 RFID MANAGER Ned Navarrete MD [facility] CPT-02731 Level 3 Est. Patient 16:49:32 CDT Ned Navarrete MD [facility] CPT-49282 Level 4 Est. Patient 14:11:59 RFID MANAGER Saskia green MD PhD [facility] CPT-04504 Level 3 Est. Patient 17:34:25 CDT Ned Navarrete MD [facility] CPT-65143 Level 3 Est. Patient 17:34:19 CDT Ned Navarrete MD [facility] CPT-74488 Level 3 Est. Patient 13:46:05 CDT Ned Navarrete MD [facility] CPT-90114 Level 3 Est. Patient 16:55:47 RFID MANAGER Ned Navarrete MD [facility] CPT-38822 Level 2 Est. Patient 17:33:08 RFID MANAGER Ned Navarrete MD [facility] CPT-95337 Level 3 Est. Patient 16:25:26 RFID MANAGER Ned Navarrete MD [facility] Procedures Code Procedure Name Date Entry Date Standard Desc ription CPT-64395 Spec Collection and Handling Fee 14:01:24 C DT CPT-25980 Visit 14:01:24 CDT CPT-033 [facility] Med Screen 14:03:18 CDT CPT-033 [facility] Med Screen 11:04:57 CDT CPT-033 [facility] Med Screen 10:29:44 CDT CPT-61338 Administration 2+ single or combination vaccines inc oral 14:02:47 RFID MANAGER CPT-50361 Administration single or combination vac cine inc oral 14:02:47 RFID MANAGER CPT-45413 Hepatitis A ped/adol 2 dose schedule 14:02:47 RFID MANAGER CPT-52169 Gardasil 14:02:47 RFID MANAGER CPT-73821 Administration single or combination vac cine inc oral 11:40:38 RFID MANAGER CPT-65273 Gardasil 11:40:38 RFID MANAGER CPT-53534 Administration single or combination vac cine inc oral 09:45:00 CDT CPT-29382 Influenza Preservative Free split virus >age 3 09:45:00 CDT CPT-50093 Venipuncture Draw Fee 07:59:02 CDT
--- OUTSIDE RECORDS SUMMARY | 2019-10-10 20:29 | XMS REPORT | Clinical Summary ---
Author Author Admin, Son Chan Organization [facility] Address Unknown Phone Unavailable Allergies, Adverse Reactions, [...] 1 herman ly for 3 days PREDNISONE [id number] No Longer Active Ned pérez MD Active CEPHALEXIN 500 MG ORAL CAPS CEPHALEXIN 23846744541 No Longer Active Ned Navarrete MD Active LATUDA 20 MG ORAL TABS LURASIDONE HCL 6600501 0230 Active Breanne Madl STRESS ANALYST Active LORATADINE 10 MG TABS 1 tablet by mouth daily L ORATADINE 07914532566 No Longer Active Breanne Madl STRESS ANALYST Active HYDROXYZINE HCL 25 MG TABS Take 1-2 tablets daily 2015 HYDROXYZINE HCL 05730082240 No Longer Active Breanne Madl STRESS ANALYST Active ORTHO TRI-CYCLEN (28) 0.18/0.215/0.25 MG-35 MCG TABS 1 daily NORGESTIM-ETH ESTRAD TRIPHASIC 74327070726 No Longer Active Breanne Madl STRESS ANALYST Active CLARITIN 10 MG TAB 1 tablet by mouth daily as needed for itchy r khari LORATADINE 45720167174 No Longer Active Ned Navarrete MD Active AUGMENTIN 875-125 MG TAB 1 po BID x 10 days with food AMOXICILLIN-POT CLAVULANATE 91175047420 No Longer Active Toni Washington DO Active ORTHO TRI-CYCLEN (28) 0.18/0.215/0.25 MG-35 MCG TABS 1 daily NORGESTIM-ETH ESTRAD TRIPHASIC 74555972428 No Longer Active Ned Navarrete MD Active ZOFRAN ODT 4 MG TBDP 1 po q6hr PRN Nausea ONDAN SETRON 45789741815 No Longer Active Ned Navarrete MD Active [facility] MELAT[facility] 3 MG TABS Take 1 tablet at bedtime. 2013 MELATONIN 00511991686 No Longer Active Ned Navarrete MD Activ e BIOTIN 1000 MCG TABS Take 2 tablets daily BIOTI N 20161366120 No Longer Active Ned Navarrete MD Active OMEPRAZOLE 20 MG CPDR 1 tablet by mouth daily O MEPRAZOLE 90074655227 No Longer Active Mariana Moses APRN Active LATUDA 80 MG TABS 1 tablet daily LURASIDONE HCL 20852534484 No Longer Active Mariana Moses APRN Active ZOVIRAX 400 MG TABS Take 1 tablet every 8 hours as needed 2 ACYCLOVIR 23761674519 No Longer Active Ned Navarrete MD Activ e ZITHROMAX Z-CHACE 250 MG TABS 2 today, then 1 daily for 4 days 201 10/06/11 AZITHROMYCIN 93132529515 No Longer Active Ned Navarrete MD Active TOPAMAX 100 MG TABS 1 tablet daily TOPIRAMATE 54 179788610 No Longer Active Ned Navarrete MD Active AMOXICILLIN 500 MG CAPS 2 po BID x 10 days AMOX ICILLIN 90030259861 No Longer Active Saskia Simon MD PhD Active NAPROSYN 375 MG TAB 1 twice a day as needed for chest pain 04/01 NAPROXEN 84620581092 No Longer Active Saskia Simon MD PhD Active HYDROCORTISONE 2.5 % EXT CREA Apply three times a day to aff ected area HYDROCORTISONE 35640725061 No Longer Active Ned Navarrete MD Active TOPIRAMATE 50 MG TABS 1 QD TOPIRAMATE 21802399587 No Longer Active Ned Navarrete MD Active FANAPT 6 MG TABS 1 BID ILOPERIDONE 69356440176 No L onger Active Ned Navarrete MD Active CIPROFLOXACIN HCL 0.3 % SOLN 1 drop in right eye every 2 hours for 2 days, then 1 drop four times a day CIPROFLOXACIN HCL 87645152686 No Longer Active Ned Navarrtee MD Active LORATADINE 10 MG TABS 1 tablet by mouth daily L ORATADINE 15601568312 No Longer Active Ned Navarrete MD Active RANITIDINE HCL 150 MG CAPS 1 twice a day RANITI DINE HCL 89167537677 No Longer Active Ned Navarrete MD Active RANITIDINE HCL 150 MG CAPS 1 twice a day RANITIDINE HCL 150 MG CAPS 571798 RANITIDINE HCL Inactive LORATADINE 10 MG TABS 1 tablet by mouth daily LORATADINE 10 MG TABS 967018 LORATADINE Inactive CIPROFLOXACIN HCL 0.3 % SOLN 1 drop in right eye every 2 hours for 2 days, then 1 drop four times a day CIPROFLOXACIN HCL 0.3 % SOLN 350299 CIPROFLOXACIN HCL Inactive FANAPT 6 MG TABS 1 BID FANAPT 6 MG TABS ILO PERIDONE Inactive TOPIRAMATE 50 MG TABS 1 QD TOPIRAMATE 50 MG TABS 1 31542 TOPIRAMATE Inactive HYDROCORTISONE 2.5 % EXT CREA Apply three times a day to aff ected area HYDROCORTISONE 2.5 % EXT CREA 647216 HYDROCORTIS ONE Inactive NAPROSYN 375 MG TAB 1 twice a day as needed for chest pain 04/01 NAPROSYN 375 MG TAB NAPROXEN Inactive TOPAMAX 100 MG TABS 1 tablet daily TOPAMAX 100 MG TABS 556115 TOPIRAMATE Inactive ZOVIRAX 400 MG TABS Take 1 tablet every 8 hours as needed 2 ZOVIRAX 400 MG TABS 975040 ACYCLOVIR Inactive LATUDA 80 MG TABS 1 tablet daily LATUDA 80 MG TA BS LURASIDONE HCL Inactive OMEPRAZOLE 20 MG CPDR 1 tablet by mouth daily OMEPRAZOLE 20 MG CPDR 236187 OMEPRAZOLE Inactive BIOTIN 1000 MCG TABS Take 2 tablets daily BIOTIN 1000 MCG TABS 252542 BIOTIN Inactive [facility] MEL[facility] 3 MG TABS Take 1 tablet at bedtime. 2013 [facility] MEL[facility] 3 MG TABS 000245 MELATONIN Inactive ZOFRAN ODT 4 MG TBDP 1 po q6hr PRN Nausea ZOFRAN ODT 4 MG TBDP 644089 ONDANSETRON Inactive ORTHO TRI-CYCLEN (28) 0.18/0.215/0.25 MG-35 MCG TABS 1 daily ORTHO TRI-CYCLEN (28) 0.18/0.215/0.25 MG-35 MCG TABS 173986 NORGESTIM-ETH ESTRAD TRIPHASIC Inactive CLARITIN 10 MG TAB 1 tablet by mouth daily as needed for itchy r khari CLARITIN 10 MG TAB 253980 LORATADINE Inactive ORTHO TRI-CYCLEN (28) 0.18/0.215/0.25 MG-35 MCG TABS 1 daily ORTHO TRI-CYCLEN (28) 0.18/0.215/0.25 MG-35 MCG TABS 363215 NORGESTIM-ETH ESTRAD TRIPHASIC Inactive HYDROXYZINE HCL 25 MG TABS Take 1-2 tablets daily 2015 HYDROXYZINE HCL 25 MG TABS 669360 HYDROXYZINE HCL Inactive LORATADINE 10 MG TABS 1 tablet by mouth daily LORATADINE 10 MG TABS 722802 LORATADINE Inactive CEPHALEXIN 500 MG ORAL CAPS CEPHALEX IN 500 MG ORAL CAPS 386583 CEPHALEXIN Inactive PREDNISONE 20 MG TABS Take 2 daily for 3 days and then 1 herman ly for 3 days PREDNISONE 20 MG TABS 868025 PREDNISONE Inacti ve AMOXICILLIN 500 MG CAPS 2 po BID x 10 days AMOXICILLIN 500 MG CAPS 100623 AMOXICILLIN Inactive ZITHROMAX Z-CHACE 250 MG TABS 2 today, then 1 daily for 4 days 201 10/06/11 ZITHROMAX Z-CHACE 250 MG TABS 6580606 AZITHROMYCIN Inac tive AUGMENTIN 875-125 MG TAB 1 po BID x 10 days with food AUGMENTIN 875-125 MG TAB 690686 AMOXICILLIN-POT CLAVULANATE Inactiv e Advance Directives Directive [...] 18 yo)) Fluzone preservative free (>3 yrs.) [[id number]] Influenza, seasonal, injectable, preservative free MPSV4 (meningococcal polysaccharide vaccination) Menactra meningococcal polysaccharide vaccine (MPSV4) hepatitis A immunization #1 Havrix-Pedi hepa titis A vaccine, unspecified formulation Adacel (Tetanus, reduced Diphtheria, and acellular Per tussis Immunization) Adacel [[id number]] tetanus toxoid, reduced diph theria toxoid, and [...] 11 .0-15.0 platelet count 210 THOUSAND/UL 10*3/mm3 435-117 3845/11/02 mean platelet volume 10.3 fL 7.5-11.5 Lab [...] N Encounters Code Encounter Date Provider Facility CPT-76623 Level 3 Est. Patient 15:21:38 OLIVIA Pepper [facility] CPT-47839 Level 3 Est. Patient 15:35:51 HSPT TUTOR Ned Navarrete MD [facility]-12563 Level 2 Est. Patient 12:43:40 CDT Ned Navarrete MD [facility]-08907 Level 3 Est. Patient 14:38:48 CDT Toni duque DO [facility] CPT-23874 Level 3 Est. Patient 09:02:58 HSPT TUTOR George paulson MD [facility] CPT-38154 Level 3 Est. Patient 17:42:32 CDT Ned Navrarete MD [facility]-72992 Level 3 Est. Patient 11:04:31 HSPT TUTOR Mariana Torrez [facility] CPT-64868 Level 4 Est. Patient 12:27:05 HSPT TUTOR Ned Navarrete MD [facility]-83366 Level 3 Est. Patient 11:31:58 HSPT TUTOR Ned Navarrete MD [facility] CPT-15605 Level 3 Est. Patient 16:49:32 CDT Ned Navarrete MD [facility]-76074 Level 4 Est. Patient 14:11:59 HSPT TUTOR Saskia green MD PhD [facility] CPT-24704 Level 3 Est. Patient 17:34:25 CDT Ned Navarrete MD [facility] CPT-74056 Level 3 Est. Patient 17:34:19 CDT Ned Navarrete MD [facility] CPT-06892 Level 3 Est. Patient 13:46:05 CDT Ned Navarrete MD [facility]-64081 Level 3 Est. Patient 16:55:47 HSPT TUTOR Ned Navarrete MD [facility]-17955 Level 2 Est. Patient 17:33:08 HSPT TUTOR Ned Navarrete MD [facility]-69378 Level 3 Est. Patient 16:25:26 HSPT TUTOR Ned Navarrete MD [facility] Procedures Code Procedure Name Date Entry Date Standard Desc ription CPT-51012 Visit 14:52:59 CDT CPT-99883 Visit 15:17:20 CDT CPT-39757 Visit 15:57:29 CDT CPT-75229 First Vx - Ix admin via ID I M or jet injects without counseling by physician 15:53:15 CDT CPT-75941 Boostrix Intramuscular Suspension 5-2.5-18.5 201 01/28/11 15:53:14 CDT CPT-82199 Tdap 7yrs or > 14:41:06 CDT CPT-36594 Visit 17:47:08 CDT CPT-21769 OBGTT 1 - LAB USE ONLY 10:15:57 CDT CPT-63904 Venipuncture Draw Fee 10:15:57 CDT CPT-08283 Visit 15:07:16 HSPT TUTOR CPT-08225 Visit 16:49:41 HSPT TUTOR CPT-75562 Sono OB limited - XRAY USE ONLY 16:38:01 CS T CPT-87101 Sono OB comp > 14 weeks - XRAY USE ONLY 17:00:59 HSPT TUTOR CPT-20959 UA w micro - LAB USE ONLY 16:59:38 CDT 2015 CPT-04848 TSH - LAB USE ONLY 16:59:38 CDT CPT-20977 Venipuncture Draw Fee 16:59:38 CDT CPT-66456 Spec Collection and Handling Fee 14:01:24 C DT CPT-20468 Visit 14:01:24 CDT [facility] 14:03:18 CDT [facility] 11:04:57 CDT [facility] 10:29:44 CDT CPT-01550 Administration 2+ single or combination vaccines inc oral 14:02:47 HSPT TUTOR CPT-95462 Administration single or combination vac cine inc oral 14:02:47 HSPT TUTOR CPT-32056 Hepatitis A ped/adol 2 dose schedule 14:02:47 HSPT TUTOR CPT-13373 Gardasil 14:02:47 HSPT TUTOR CPT-10377 Administration single or combination vac cine inc oral 11:40:38 HSPT TUTOR CPT-84310 Gardasil 11:40:38 HSPT TUTOR CPT-20263 Administration single or combination vac cine inc oral 09:45:00 CDT CPT-92720 Influenza Preservative Free split virus >age 3 09:45:00 CDT CPT-62767 Venipuncture Draw Fee 07:59:02 CDT
--- OUTSIDE RECORDS SUMMARY | 2019-10-10 20:30 | XMS REPORT | Clinical Summary ---
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 Ned rPescott MD Amphetamine or related acting sympathomimetic abuse, [...] 1 herman ly for 3 days PREDNISONE 26841362537 No Longer Active Ned pérez MD Active CEPHALEXIN 500 MG ORAL CAPS CEPHALEXIN 65762626416 No Longer Active Ned Navarrete MD Active LATUDA 20 MG ORAL TABS LURASIDONE HCL 0728606 0230 Active Breanne Madl INSIDE ACCOUNT REPRESENTATIVE Active LORATADINE 10 MG TABS 1 tablet by mouth daily L ORATADINE 38787671682 No Longer Active Breanne Madl INSIDE ACCOUNT REPRESENTATIVE Active HYDROXYZINE HCL 25 MG TABS Take 1-2 tablets daily 2015 HYDROXYZINE HCL 90379302276 No Longer Active Breanne Madl INSIDE ACCOUNT REPRESENTATIVE Active ORTHO TRI-CYCLEN (28) 0.18/0.215/0.25 MG-35 MCG TABS 1 daily NORGESTIM-ETH ESTRAD TRIPHASIC 39408388267 No Longer Active Breanne Madl INSIDE ACCOUNT REPRESENTATIVE Active CLARITIN 10 MG TAB 1 tablet by mouth daily as needed for itchy r khari LORATADINE 41138857595 No Longer Active Ned Navarrete MD Active AUGMENTIN 875-125 MG TAB 1 po BID x 10 days with food AMOXICILLIN-POT CLAVULANATE 52739377294 No Longer Active Toni Washington DO Active ORTHO TRI-CYCLEN (28) 0.18/0.215/0.25 MG-35 MCG TABS 1 daily NORGESTIM-ETH ESTRAD TRIPHASIC 83110614817 No Longer Active Ned Navarrete MD Active ZOFRAN ODT 4 MG TBDP 1 po q6hr PRN Nausea ONDAN SETRON 99074759289 No Longer Active Ned Navarrete MD Active [facility] MELAT[facility]IN 3 MG TABS Take 1 tablet at bedtime. 2013 MELATONIN 21305916729 No Longer Active Ned Navarrete MD Activ e BIOTIN 1000 MCG TABS Take 2 tablets daily BIOTI N 14786597889 No Longer Active Ned Navarrete MD Active OMEPRAZOLE 20 MG CPDR 1 tablet by mouth daily O MEPRAZOLE 60700698361 No Longer Active Mariana Moses APRN Active LATUDA 80 MG TABS 1 tablet daily LURASIDONE HCL 06712960416 No Longer Active Mariana Moses APRN Active ZOVIRAX 400 MG TABS Take 1 tablet every 8 hours as needed 2 ACYCLOVIR 22180078357 No Longer Active Ned Navarrete MD Activ e ZITHROMAX Z-CHACE 250 MG TABS 2 today, then 1 daily for 4 days 201 10/06/11 AZITHROMYCIN 43328495031 No Longer Active Ned Navarrete MD Active TOPAMAX 100 MG TABS 1 tablet daily TOPIRAMATE 54 131352150 No Longer Active Ned Navarrete MD Active AMOXICILLIN 500 MG CAPS 2 po BID x 10 days AMOX ICILLIN 70511402484 No Longer Active Saskia Simon MD PhD Active NAPROSYN 375 MG TAB 1 twice a day as needed for chest pain 04/01 NAPROXEN 57580211935 No Longer Active Saskia Simon MD PhD Active HYDROCORTISONE 2.5 % EXT CREA Apply three times a day to aff ected area HYDROCORTISONE 86088442763 No Longer Active Ned Navarrete MD Active TOPIRAMATE 50 MG TABS 1 QD TOPIRAMATE 98209928599 No Longer Active Ned Navarrete MD Active FANAPT 6 MG TABS 1 BID ILOPERIDONE 60281750603 No L onger Active Ned Navarrete MD Active CIPROFLOXACIN HCL 0.3 % SOLN 1 drop in right eye every 2 hours for 2 days, then 1 drop four times a day CIPROFLOXACIN HCL 62144498330 No Longer Active Ned Navarrete MD Active LORATADINE 10 MG TABS 1 tablet by mouth daily L ORATADINE 84659934737 No Longer Active Ned Navarrete MD Active RANITIDINE HCL 150 MG CAPS 1 twice a day RANITI DINE HCL 75593493927 No Longer Active Ned Navarrete MD Active RANITIDINE HCL 150 MG CAPS 1 twice a day RANITIDINE HCL 150 MG CAPS 649210 RANITIDINE HCL Inactive LORATADINE 10 MG TABS 1 tablet by mouth daily LORATADINE 10 MG TABS 439283 LORATADINE Inactive CIPROFLOXACIN HCL 0.3 % SOLN 1 drop in right eye every 2 hours for 2 days, then 1 drop four times a day CIPROFLOXACIN HCL 0.3 % SOLN 745780 CIPROFLOXACIN HCL Inactive FANAPT 6 MG TABS 1 BID FANAPT 6 MG TABS ILO PERIDONE Inactive TOPIRAMATE 50 MG TABS 1 QD TOPIRAMATE 50 MG TABS 1 85418 TOPIRAMATE Inactive HYDROCORTISONE 2.5 % EXT CREA Apply three times a day to aff ected area HYDROCORTISONE 2.5 % EXT CREA 530360 HYDROCORTIS ONE Inactive NAPROSYN 375 MG TAB 1 twice a day as needed for chest pain 04/01 NAPROSYN 375 MG TAB NAPROXEN Inactive TOPAMAX 100 MG TABS 1 tablet daily TOPAMAX 100 MG TABS 030399 TOPIRAMATE Inactive ZOVIRAX 400 MG TABS Take 1 tablet every 8 hours as needed 2 ZOVIRAX 400 MG TABS 071936 ACYCLOVIR Inactive LATUDA 80 MG TABS 1 tablet daily LATUDA 80 MG TA BS LURASIDONE HCL Inactive OMEPRAZOLE 20 MG CPDR 1 tablet by mouth daily OMEPRAZOLE 20 MG CPDR 867343 OMEPRAZOLE Inactive BIOTIN 1000 MCG TABS Take 2 tablets daily BIOTIN 1000 MCG TABS 583961 BIOTIN Inactive [facility] MEL[facility]IN 3 MG TABS Take 1 tablet at bedtime. 2013 [facility] MEL[facility]IN 3 MG TABS 616823 MELATONIN Inactive ZOFRAN ODT 4 MG TBDP 1 po q6hr PRN Nausea ZOFRAN ODT 4 MG TBDP 280129 ONDANSETRON Inactive ORTHO TRI-CYCLEN (28) 0.18/0.215/0.25 MG-35 MCG TABS 1 daily ORTHO TRI-CYCLEN (28) 0.18/0.215/0.25 MG-35 MCG TABS 617971 NORGESTIM-ETH ESTRAD TRIPHASIC Inactive CLARITIN 10 MG TAB 1 tablet by mouth daily as needed for itchy r khari CLARITIN 10 MG TAB 799793 LORATADINE Inactive ORTHO TRI-CYCLEN (28) 0.18/0.215/0.25 MG-35 MCG TABS 1 daily ORTHO TRI-CYCLEN (28) 0.18/0.215/0.25 MG-35 MCG TABS 350135 NORGESTIM-ETH ESTRAD TRIPHASIC Inactive HYDROXYZINE HCL 25 MG TABS Take 1-2 tablets daily 2015 HYDROXYZINE HCL 25 MG TABS 638008 HYDROXYZINE HCL Inactive LORATADINE 10 MG TABS 1 tablet by mouth daily LORATADINE 10 MG TABS 520759 LORATADINE Inactive CEPHALEXIN 500 MG ORAL CAPS CEPHALEX IN 500 MG ORAL CAPS 948280 CEPHALEXIN Inactive PREDNISONE 20 MG TABS Take 2 daily for 3 days and then 1 herman ly for 3 days PREDNISONE 20 MG TABS 890741 PREDNISONE Inacti ve AMOXICILLIN 500 MG CAPS 2 po BID x 10 days AMOXICILLIN 500 MG CAPS 808854 AMOXICILLIN Inactive ZITHROMAX Z-CHACE 250 MG TABS 2 today, then 1 daily for 4 days 201 10/06/11 ZITHROMAX Z-CHACE 250 MG TABS 8984335 AZITHROMYCIN Inac tive AUGMENTIN 875-125 MG TAB 1 po BID x 10 days with food AUGMENTIN 875-125 MG TAB 496944 AMOXICILLIN-POT CLAVULANATE Inactiv e Advance Directives Directive [...] 16 yo)) Fluzone preservative free (>3 yrs.) [[id number]] Influenza, seasonal, injectable, preservative free MPSV4 (meningococcal polysaccharide vaccination) Menactra meningococcal polysaccharide vaccine (MPSV4) hepatitis A immunization #1 Havrix-Pedi hepa titis A vaccine, unspecified formulation Adacel (Tetanus, reduced Diphtheria, and acellular Per tussis Immunization) Adacel [[id number]] tetanus toxoid, reduced diph theria toxoid, and [...] 11 .0-15.0 platelet count 210 THOUSAND/UL 10*3/mm3 956-055 5507/11/02 mean platelet volume 10.3 fL 7.5-11.5 Lab [...] N Encounters Code Encounter Date Provider Facility CPT-93273 Level 3 Est. Patient 15:21:38 CHANNEL SALES MANAGER Rayna Pepper [facility] CPT-82661 Level 3 Est. Patient 15:35:51 CHANNEL SALES MANAGER Ned Navarrete MD [facility] CPT-78131 Level 2 Est. Patient 12:43:40 CDT Ned Navarrete MD [facility] CPT-85732 Level 3 Est. Patient 14:38:48 CDT Toni duque DO [facility] CPT-43612 Level 3 Est. Patient 09:02:58 CHANNEL SALES MANAGER George paulson MD [facility] CPT-45597 Level 3 Est. Patient 17:42:32 CDT Ned Navarrete MD [facility] CPT-92667 Level 3 Est. Patient 11:04:31 CHANNEL SALES MANAGER Mariana Torrez [facility] CPT-82253 Level 4 Est. Patient 12:27:05 CHANNEL SALES MANAGER Ned Navarrete MD [facility] CPT-83594 Level 3 Est. Patient 11:31:58 CHANNEL SALES MANAGER Ned Navarrete MD [facility] CPT-63054 Level 3 Est. Patient 16:49:32 CDT Ned Navarrete MD [facility] CPT-05529 Level 4 Est. Patient 14:11:59 CHANNEL SALES MANAGER Saskia green MD PhD [facility] CPT-21903 Level 3 Est. Patient 17:34:25 CDT Ned Navarrete MD [facility] CPT-75937 Level 3 Est. Patient 17:34:19 CDT Ned Navarrete MD [facility] CPT-26906 Level 3 Est. Patient 13:46:05 CDT Ned Navarrete MD [facility] CPT-68763 Level 3 Est. Patient 16:55:47 CHANNEL SALES MANAGER Ned Navarrete MD [facility] CPT-67746 Level 2 Est. Patient 17:33:08 CHANNEL SALES MANAGER Ned Navarrete MD [facility] CPT-46653 Level 3 Est. Patient 16:25:26 CHANNEL SALES MANAGER Ned Navarrete MD [facility] Procedures Code Procedure Name Date Entry Date Standard Desc ription CPT-00389 Visit 15:57:29 CDT CPT-14570 First Vx - Ix admin via ID I M or jet injects without counseling by physician 15:53:15 CDT CPT-58211 Boostrix Intramuscular Suspension 5-2.5-18.5 201 01/28/11 15:53:14 CDT CPT-84856 Tdap 7yrs or > 14:41:06 CDT CPT-94057 Visit 17:47:08 CDT CPT-55746 OBGTT 1 - LAB USE ONLY 10:15:57 CDT CPT-79574 Venipuncture Draw Fee 10:15:57 CDT CPT-35952 Visit 15:07:16 CHANNEL SALES MANAGER CPT-02401 Visit 16:49:41 CHANNEL SALES MANAGER CPT-27241 Sono OB limited - XRAY USE ONLY 16:38:01 CS T CPT-53747 Sono OB comp > 14 weeks - XRAY USE ONLY 17:00:59 CHANNEL SALES MANAGER CPT-59062 UA w micro - LAB USE ONLY 16:59:38 CDT 2015 CPT-40178 TSH - LAB USE ONLY 16:59:38 CDT CPT-18882 Venipuncture Draw Fee 16:59:38 CDT CPT-03147 Spec Collection and Handling Fee 14:01:24 C DT CPT-23599 Visit 14:01:24 CDT CPT-033 KB Med Screen 14:03:18 CDT CPT-033 KB Med Screen 11:04:57 CDT CPT-033 KB Med Screen 10:29:44 CDT CPT-91571 Administration 2+ single or combination vaccines inc oral 14:02:47 CHANNEL SALES MANAGER CPT-52019 Administration single or combination vac cine inc oral 14:02:47 CHANNEL SALES MANAGER CPT-11267 Hepatitis A ped/adol 2 dose schedule 14:02:47 CHANNEL SALES MANAGER CPT-35432 Gardasil 14:02:47 CHANNEL SALES MANAGER CPT-67667 Administration single or combination vac cine inc oral 11:40:38 CHANNEL SALES MANAGER CPT-65098 Gardasil 11:40:38 CHANNEL SALES MANAGER CPT-30990 Administration single or combination vac cine inc oral 09:45:00 CDT CPT-65577 Influenza Preservative Free split virus >age 3 09:45:00 CDT CPT-32388 Venipuncture Draw Fee 07:59:02 CDT
--- OUTSIDE RECORDS SUMMARY | 2019-10-10 20:30 | XMS REPORT | Clinical Summary ---
Author Author Beka, Son Chan Organization [facility] Address Unknown Phone Unavailable Allergies, Adverse Reactions, [...] noninfectious gastroenteritis and colitis Folliculitis 704.8 Active oTni Washington DO Other specified diseases of hair [...] as needed for itchy r khari LORATADINE 96398534524 Active Toni Washington DO Active AUGMENTIN 875-125 MG TAB 1 po BID x 10 days with food AMOXICILLIN-POT CLAVULANATE 78038409189 No Longer Active Toni Washington DO Active ORTHO TRI-CYCLEN (28) 0.18/0.215/0.25 MG-35 MCG TABS 1 daily 2 NORGESTIM-ETH ESTRAD TRIPHASIC 75689698631 Active Leana Bowles Active ORTHO TRI-CYCLEN (28) 0.18/0.215/0.25 MG-35 MCG TABS 1 daily NORGESTIM-ETH ESTRAD TRIPHASIC 85344500469 No Longer Active Ned Navarrete MD Active ZOFRAN ODT 4 MG TBDP 1 po q6hr PRN Nausea ONDAN SETRON 83876856300 No Longer Active Ned Navarrete MD Active [facility] MEL[facility] 3 MG TABS Take 1 tablet at bedtime. 2013 MELATONIN 29593706311 No Longer Active Ned Navarrete MD Activ e BIOTIN 1000 MCG TABS Take 2 tablets daily BIOTI N 53084891178 No Longer Active Ned Navarrete MD Active OMEPRAZOLE 20 MG CPDR 1 tablet by mouth daily O MEPRAZOLE 50516595640 No Longer Active Mariana Moses APRN Active LATUDA 80 MG TABS 1 tablet daily LURASIDONE HCL 25486877406 No Longer Active Mariana Moses APRN Active ZOVIRAX 400 MG TABS Take 1 tablet every 8 hours as needed 2 ACYCLOVIR 42497760354 No Longer Active Ned Navarrete MD Activ e ZITHROMAX Z-CHACE 250 MG TABS 2 today, then 1 daily for 4 days 201 10/06/11 AZITHROMYCIN 20601109317 No Longer Active Ned Navarrete MD Active HYDROXYZINE HCL 25 MG TABS Take 1-2 tablets daily HYDROXYZINE HCL 74529051004 Active Ned Navarrete MD Active TOPAMAX 100 MG TABS 1 tablet daily TOPIRAMATE 54 177057623 No Longer Active Ned Navarrete MD Active AMOXICILLIN 500 MG CAPS 2 po BID x 10 days AMOX ICILLIN 56622634512 No Longer Active Saskia Simon MD PhD Active NAPROSYN 375 MG TAB 1 twice a day as needed for chest pain 04/01 NAPROXEN 02804711008 No Longer Active Saskia Simon MD PhD Active HYDROCORTISONE 2.5 % EXT CREA Apply three times a day to aff ected area HYDROCORTISONE 55424811399 No Longer Active Ned Navarrete MD Active LORATADINE 10 MG TABS 1 tablet by mouth daily L ORATADINE 73987940374 Active Crystal Bowles Active TOPIRAMATE 50 MG TABS 1 QD TOPIRAMATE 93501050980 No Longer Active Ned Navarrete MD Active FANAPT 6 MG TABS 1 BID ILOPERIDONE 55856587132 No L onger Active Ned Navarrete MD Active CIPROFLOXACIN HCL 0.3 % SOLN 1 drop in right eye every 2 hours for 2 days, then 1 drop four times a day CIPROFLOXACIN HCL 92241489336 No Longer Active Ned Navarrete MD Active LORATADINE 10 MG TABS 1 tablet by mouth daily L ORATADINE 72669230774 No Longer Active Ned Navarrete MD Active RANITIDINE HCL 150 MG CAPS 1 twice a day RANITI DINE HCL 54853173398 No Longer Active Ned Navarrete MD Active RANITIDINE HCL 150 MG CAPS 1 twice a day RANITIDINE HCL 150 MG CAPS 291694 RANITIDINE HCL Inactive LORATADINE 10 MG TABS 1 tablet by mouth daily LORATADINE 10 MG TABS 444574 LORATADINE Inactive CIPROFLOXACIN HCL 0.3 % SOLN 1 drop in right eye every 2 hours for 2 days, then 1 drop four times a day CIPROFLOXACIN HCL 0.3 % SOLN 367777 CIPROFLOXACIN HCL Inactive FANAPT 6 MG TABS 1 BID FANAPT 6 MG TABS ILO PERIDONE Inactive TOPIRAMATE 50 MG TABS 1 QD TOPIRAMATE 50 MG TABS 1 85547 TOPIRAMATE Inactive HYDROCORTISONE 2.5 % EXT CREA Apply three times a day to aff ected area HYDROCORTISONE 2.5 % EXT CREA 891156 HYDROCORTIS ONE Inactive NAPROSYN 375 MG TAB 1 twice a day as needed for chest pain 04/01 NAPROSYN 375 MG TAB NAPROXEN Inactive TOPAMAX 100 MG TABS 1 tablet daily TOPAMAX 100 MG TABS 521917 TOPIRAMATE Inactive ZOVIRAX 400 MG TABS Take 1 tablet every 8 hours as needed 2 ZOVIRAX 400 MG TABS 19720728 ACYCLOVIR Inactive LATUDA 80 MG TABS 1 tablet daily LATUDA 80 MG TA BS LURASIDONE HCL Inactive OMEPRAZOLE 20 MG CPDR 1 tablet by mouth daily OMEPRAZOLE 20 MG CPDR 049647 OMEPRAZOLE Inactive BIOTIN 1000 MCG TABS Take 2 tablets daily BIOTIN 1000 MCG TABS 584111 BIOTIN Inactive [facility] M[facility] 3 MG TABS Take 1 tablet at bedtime. 2013 [facility] MEL[facility] 3 MG TABS 052977 MELATONIN Inactive ZOFRAN ODT 4 MG TBDP 1 po q6hr PRN Nausea ZOFRAN ODT 4 MG TBDP 455683 ONDANSETRON Inactive ORTHO TRI-CYCLEN (28) 0.18/0.215/0.25 MG-35 MCG TABS 1 daily ORTHO TRI-CYCLEN (28) 0.18/0.215/0.25 MG-35 MCG TABS 350397 NORGESTIM-ETH ESTRAD TRIPHASIC Inactive AMOXICILLIN 500 MG CAPS 2 po BID x 10 days AMOXICILLIN 500 MG CAPS 099709 AMOXICILLIN Inactive ZITHROMAX Z-CHACE 250 MG TABS 2 today, then 1 daily for 4 days 201 10/06/11 ZITHROMAX Z-CHACE 250 MG TABS 2516248 AZITHROMYCIN Inac tive AUGMENTIN 875-125 MG TAB 1 po BID x 10 days with food AUGMENTIN 875-125 MG TAB 538775 AMOXICILLIN-POT CLAVULANATE Inactiv e Advance Directives Directive [...] 18 yo)) Fluzone preservative free (>3 yrs.) [[id number]] Influenza, seasonal, injectable, preservative free MPSV4 (meningococcal polysaccharide vaccination) Menactra meningococcal polysaccharide vaccine (MPSV4) hepatitis A immunization #1 Havrix-Pedi hepa titis A vaccine, unspecified formulation Adacel (Tetanus, reduced Diphtheria, and acellular Per tussis Immunization) Adacel [[id number]] tetanus toxoid, reduced diph theria toxoid, and [...] Measured Encounters Code Encounter Date Provider Facility CPT-45783 Level 3 Est. Patient 14:38:48 CDT Toni duque DO [facility] CPT-70549 Level 3 Est. Patient 09:02:58 [employer]ES[employer]FTSM[employer] George paulson MD [facility] CPT-47635 Level 3 Est. Patient 17:42:32 CDT Ned Navarrete MD [facility] CPT-86317 Level 3 Est. Patient 11:04:31 [employer] Mariana Torrez APRN [facility] CPT-06967 Level 4 Est. Patient 12:27:05 [employer] Ned Navarrete MD [facility] CPT-50017 Level 3 Est. Patient 11:31:58 [employer] Ned Navarrete MD [facility] CPT-90544 Level 3 Est. Patient 16:49:32 CDT Ned Navarrete MD [facility] CPT-74730 Level 4 Est. Patient 14:11:59 [employer] Saskia green MD PhD [facility] CPT-68428 Level 3 Est. Patient 17:34:25 CDT Ned Navarrete MD [facility] CPT-84934 Level 3 Est. Patient 17:34:19 CDT Ned Navarrete MD [facility] CPT-88795 Level 3 Est. Patient 13:46:05 CDT Ned Navarrete MD [facility] CPT-38861 Level 3 Est. Patient 16:55:47 [employer]ES[employer]SM[employer] Ned Navarrete MD [facility] CPT-64453 Level 2 Est. Patient 17:33:08 [employer]ESC[employer]SM[employer] Ned Navarrete MD [facility] CPT-13246 Level 3 Est. Patient 16:25:26 [employer]ARESC[employer]FTSMAN Ned Navarrete MD [facility] Procedures Code Procedure Name Date Entry Date Standard Desc ription CPT-033 [facility] Med Screen 11:04:57 CDT CPT-033 [facility] Med Screen 10:29:44 CDT CPT-12185 Administration 2+ single or combination vaccines inc oral 14:02:47 [employer] CPT-50814 Administration single or combination vac cine inc oral 14:02:47 [employer] CPT-05952 Hepatitis A ped/adol 2 dose schedule 14:02:47 [employer] CPT-87760 Gardasil 14:02:47 [employer] CPT-91727 Administration single or combination vac cine inc oral 11:40:38 [employer] CPT-12560 Gardasil 11:40:38 [employer] CPT-16323 Administration single or combination vac cine inc oral 09:45:00 CDT CPT-26901 Influenza Preservative Free split virus >age 3 09:45:00 CDT CPT-68862 Venipuncture Draw Fee 07:59:02 CDT
--- OUTSIDE RECORDS SUMMARY | 2019-10-10 20:30 | XMS REPORT | Clinical Summary ---
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 2013 MELATONIN 97259264779 No Longer Active Ned Navarrete MD Activ e BIOTIN 1000 MCG TABS Take 2 tablets daily BIOTI N 30835943426 No Longer Active Ned Navarrete MD Active OMEPRAZOLE 20 MG CPDR 1 tablet by mouth daily O MEPRAZOLE 85821952392 No Longer Active Mariana Moses APRN Active LATUDA 80 MG TABS 1 tablet daily LURASIDONE HCL 86091633980 No Longer Active Mariana Moses APRN Active ZOVIRAX 400 MG TABS Take 1 tablet every 8 hours as needed 2 ACYCLOVIR 88579938664 No Longer Active Ned Navarrete MD Activ e ZITHROMAX Z-CHACE 250 MG TABS 2 today, then 1 daily for 4 days 201 10/06/11 AZITHROMYCIN 27992448408 No Longer Active Ned Navarrete MD Active HYDROXYZINE HCL 25 MG TABS Take 1-2 tablets daily HYDROXYZINE HCL 93982510264 Active Ned Navarrete MD Active TOPAMAX 100 MG TABS 1 tablet daily TOPIRAMATE 54 439724795 No Longer Active Ned Navarrete MD Active AMOXICILLIN 500 MG CAPS 2 po BID x 10 days AMOX ICILLIN 30594615622 No Longer Active Saskia Simon MD PhD Active NAPROSYN 375 MG TAB 1 twice a day as needed for chest pain 04/01 NAPROXEN 99068173507 No Longer Active Saskia Simon MD PhD Active HYDROCORTISONE 2.5 % EXT CREA Apply three times a day to aff ected area HYDROCORTISONE 74353436568 No Longer Active Ned Navarrete MD Active LORATADINE 10 MG TABS 1 tablet by mouth daily L ORATADINE 77872233949 Active Crystal Bowles Active TOPIRAMATE 50 MG TABS 1 QD TOPIRAMATE 77281080809 No Longer Active Ned Navarrete MD Active FANAPT 6 MG TABS 1 BID ILOPERIDONE 04483496718 No L onger Active Ned Navarrete MD Active CIPROFLOXACIN HCL 0.3 % SOLN 1 drop in right eye every 2 hours for 2 days, then 1 drop four times a day CIPROFLOXACIN HCL 92534498608 No Longer Active Ned Navarrete MD Active LORATADINE 10 MG TABS 1 tablet by mouth daily L ORATADINE 76932795825 No Longer Active Ned Navarrete MD Active RANITIDINE HCL 150 MG CAPS 1 twice a day RANITI DINE HCL 99339440842 No Longer Active Ned Navarrete MD Active RANITIDINE HCL 150 MG CAPS 1 twice a day RANITIDINE HCL 150 MG CAPS 856575 RANITIDINE HCL Inactive LORATADINE 10 MG TABS 1 tablet by mouth daily LORATADINE 10 MG TABS 029452 LORATADINE Inactive CIPROFLOXACIN HCL 0.3 % SOLN 1 drop in right eye every 2 hours for 2 days, then 1 drop four times a day CIPROFLOXACIN HCL 0.3 % SOLN 388192 CIPROFLOXACIN HCL Inactive FANAPT 6 MG TABS 1 BID FANAPT 6 MG TABS ILO PERIDONE Inactive TOPIRAMATE 50 MG TABS 1 QD TOPIRAMATE 50 MG TABS 1 74042 TOPIRAMATE Inactive HYDROCORTISONE 2.5 % EXT CREA Apply three times a day to aff ected area HYDROCORTISONE 2.5 % EXT CREA 027541 HYDROCORTIS ONE Inactive NAPROSYN 375 MG TAB 1 twice a day as needed for chest pain 04/01 NAPROSYN 375 MG TAB NAPROXEN Inactive TOPAMAX 100 MG TABS 1 tablet daily TOPAMAX 100 MG TABS 430144 TOPIRAMATE Inactive ZOVIRAX 400 MG TABS Take 1 tablet every 8 hours as needed 2 ZOVIRAX 400 MG TABS 199591 ACYCLOVIR Inactive LATUDA 80 MG TABS 1 tablet daily LATUDA 80 MG TA BS LURASIDONE HCL Inactive OMEPRAZOLE 20 MG CPDR 1 tablet by mouth daily OMEPRAZOLE 20 MG CPDR 425516 OMEPRAZOLE Inactive BIOTIN 1000 MCG TABS Take 2 tablets daily BIOTIN 1000 MCG TABS 607377 BIOTIN Inactive [facility] M[facility] 3 MG TABS Take 1 tablet at bedtime. 2013 [facility] M[facility] 3 MG TABS 656453 MELATONIN Inactive ZOFRAN ODT 4 MG TBDP 1 po q6hr PRN Nausea ZOFRAN ODT 4 MG TBDP 275771 ONDANSETRON Inactive ORTHO TRI-CYCLEN (28) 0.18/0.215/0.25 MG-35 MCG TABS 1 daily ORTHO TRI-CYCLEN (28) 0.18/0.215/0.25 MG-35 MCG TABS 732332 NORGESTIM-ETH ESTRAD TRIPHASIC Inactive AMOXICILLIN 500 MG CAPS 2 po BID x 10 days AMOXICILLIN 500 MG CAPS 213383 AMOXICILLIN Inactive ZITHROMAX Z-CHACE 250 MG TABS 2 today, then 1 daily for 4 days 201 10/06/11 ZITHROMAX Z-CHACE 250 MG TABS 8376041 AZITHROMYCIN Inac tive Advance Directives Directive Description [...] 18 yo)) Fluzone preservative free (>3 yrs.) [[id number]] Influenza, seasonal, injectable, preservative free MPSV4 (meningococcal polysaccharide vaccination) Menactra meningococcal polysaccharide vaccine (MPSV4) hepatitis A immunization #1 Havrix-Pedi hepa titis A vaccine, unspecified formulation Adacel (Tetanus, reduced Diphtheria, and acellular Per tussis Immunization) Adacel [[id number]] tetanus toxoid, reduced diph theria toxoid, and [...] Measured Encounters Code Encounter Date Provider Facility CPT-39511 Level 3 Est. Patient 09:02:58 [employer] George paulson MD [facility] CPT-20740 Level 3 Est. Patient 17:42:32 CDT Ned Navarrete MD [facility]-83211 Level 3 Est. Patient 11:04:31 [employer] Mariana Torrez APRN [facility] CPT-57384 Level 4 Est. Patient 12:27:05 [employer] HELPER Ned Navarrete MD [facility] CPT-57457 Level 3 Est. Patient 11:31:58 [employer]MAN HELPER Ned Navarrete MD [facility] CPT-02496 Level 3 Est. Patient 16:49:32 CDT Ned Navarrete MD [facility] CPT-35674 Level 4 Est. Patient 14:11:59 [employer] Saskia green MD PhD [facility] CPT-42811 Level 3 Est. Patient 17:34:25 CDT Ned Navarrete MD [facility] CPT-41264 Level 3 Est. Patient 17:34:19 CDT Ned Navarrete MD [facility] CPT-86028 Level 3 Est. Patient 13:46:05 CDT Ned Navarrete MD [facility] [place]-13626 Level 3 Est. Patient 16:55:47 [employer]ERMAN HELPER Ned Navarrete MD [facility] CPT-96549 Level 2 Est. Patient 17:33:08 [employer]ERMAN HELPER Ned Navarrete MD [facility] CPT-98520 Level 3 Est. Patient 16:25:26 FISHERMAN HELPER Ned Navarrete MD [facility] Procedures Code Procedure Name Date Entry Date Standard Desc ription CPT-033 [facility] Med Screen 11:04:57 CDT CPT-033 [facility] Med Screen 10:29:44 CDT CPT-04340 Administration 2+ single or combination vaccines inc oral 14:02:47 [employer] CPT-23574 Administration single or combination vac cine inc oral 14:02:47 [employer] CPT-88025 Hepatitis A ped/adol 2 dose schedule 14:02:47 [employer] CPT-80119 Gardasil 14:02:47 [employer] CPT-41780 Administration single or combination vac cine inc oral 11:40:38 [employer] CPT-89062 Gardasil 11:40:38 [employer] CPT-79072 Administration single or combination vac cine inc oral 09:45:00 CDT CPT-86464 Influenza Preservative Free split virus >age 3 09:45:00 CDT CPT-98862 Venipuncture Draw Fee 07:59:02 CDT
--- OUTSIDE RECORDS SUMMARY | 2019-10-10 20:31 | XMS REPORT | Clinical Summary ---
Author Author Admin, Son Chan Organization [employer] Address Unknown Phone Unavailable Allergies, Adverse Reactions, [...] 1 [address] for 3 days PREDNISONE [id number] No Longer Active Ned pérez MD Active CEPHALEXIN 500 MG ORAL CAPS CEPHALEXIN 10302475489 No Longer Active Ned Navarrete MD Active LATUDA 20 MG ORAL TABS LURASIDONE HCL 8339835 0230 Active Breanne Madl RESIDENTIAL INSURANCE INSPECTOR Active LORATADINE 10 MG TABS 1 tablet by mouth daily L ORATADINE 14354206783 No Longer Active Breanne Madl RESIDENTIAL INSURANCE INSPECTOR Active HYDROXYZINE HCL 25 MG TABS Take 1-2 tablets daily 2015 HYDROXYZINE HCL 54696532001 No Longer Active Breanne Madl RESIDENTIAL INSURANCE INSPECTOR Active ORTHO TRI-CYCLEN (28) 0.18/0.215/0.25 MG-35 MCG TABS 1 daily NORGESTIM-ETH ESTRAD TRIPHASIC 33823174620 No Longer Active Breanne Madl RESIDENTIAL INSURANCE INSPECTOR Active CLARITIN 10 MG TAB 1 tablet by mouth daily as needed for itchy r khari LORATADINE 37672010176 No Longer Active Ned Navarrete MD Active AUGMENTIN 875-125 MG TAB 1 po BID x 10 days with food AMOXICILLIN-POT CLAVULANATE 02903148241 No Longer Active Toni Washington DO Active ORTHO TRI-CYCLEN (28) 0.18/0.215/0.25 MG-35 MCG TABS 1 daily NORGESTIM-ETH ESTRAD TRIPHASIC 23759345207 No Longer Active Ned Navarrete MD Active ZOFRAN ODT 4 MG TBDP 1 po q6hr PRN Nausea ONDAN SETRON 99432323660 No Longer Active Ned Navarrete MD Active [facility] MEL[facility] 3 MG TABS Take 1 tablet at bedtime. 2013 MELATONIN 22021981952 No Longer Active Ned Navarrete MD Activ e BIOTIN 1000 MCG TABS Take 2 tablets daily BIOTI N 24024916249 No Longer Active Ned Navarrete MD Active OMEPRAZOLE 20 MG CPDR 1 tablet by mouth daily O MEPRAZOLE 10918373905 No Longer Active Mariana Moses APRN Active LATUDA 80 MG TABS 1 tablet daily LURASIDONE HCL 18298195625 No Longer Active Mariana Moses APRN Active ZOVIRAX 400 MG TABS Take 1 tablet every 8 hours as needed 2 ACYCLOVIR 53494584456 No Longer Active Ned Navarrete MD Activ e ZITHROMAX Z-CHACE 250 MG TABS 2 today, then 1 daily for 4 days 201 10/06/11 AZITHROMYCIN 40915450980 No Longer Active Ned Navarrete MD Active TOPAMAX 100 MG TABS 1 tablet daily TOPIRAMATE 54 322890005 No Longer Active Ned Navarrete MD Active AMOXICILLIN 500 MG CAPS 2 po BID x 10 days AMOX ICILLIN 90252134244 No Longer Active Saskia Simon MD PhD Active NAPROSYN 375 MG TAB 1 twice a day as needed for chest pain 04/01 NAPROXEN 45070163400 No Longer Active Saskia Simon MD PhD Active HYDROCORTISONE 2.5 % EXT CREA Apply three times a day to aff ected area HYDROCORTISONE 06882105465 No Longer Active Ned Navarrete MD Active TOPIRAMATE 50 MG TABS 1 QD TOPIRAMATE 43900440772 No Longer Active Ned Navarrete MD Active FANAPT 6 MG TABS 1 BID ILOPERIDONE 29810755389 No L onger Active Ned Navarrete MD Active CIPROFLOXACIN HCL 0.3 % SOLN 1 drop in right eye every 2 hours for 2 days, then 1 drop four times a day CIPROFLOXACIN HCL 99843518954 No Longer Active Ned Navarrete MD Active LORATADINE 10 MG TABS 1 tablet by mouth daily L ORATADINE 22192299474 No Longer Active Ned Navarrete MD Active RANITIDINE HCL 150 MG CAPS 1 twice a day RANITI DINE HCL 93504021982 No Longer Active Ned Navarrete MD Active RANITIDINE HCL 150 MG CAPS 1 twice a day RANITIDINE HCL 150 MG CAPS 874476 RANITIDINE HCL Inactive LORATADINE 10 MG TABS 1 tablet by mouth daily LORATADINE 10 MG TABS 579014 LORATADINE Inactive CIPROFLOXACIN HCL 0.3 % SOLN 1 drop in right eye every 2 hours for 2 days, then 1 drop four times a day CIPROFLOXACIN HCL 0.3 % SOLN 387372 CIPROFLOXACIN HCL Inactive FANAPT 6 MG TABS 1 BID FANAPT 6 MG TABS ILO PERIDONE Inactive TOPIRAMATE 50 MG TABS 1 QD TOPIRAMATE 50 MG TABS 1 17875 TOPIRAMATE Inactive HYDROCORTISONE 2.5 % EXT CREA Apply three times a day to aff ected area HYDROCORTISONE 2.5 % EXT CREA 070591 HYDROCORTIS ONE Inactive NAPROSYN 375 MG TAB 1 twice a day as needed for chest pain 04/01 NAPROSYN 375 MG TAB NAPROXEN Inactive TOPAMAX 100 MG TABS 1 tablet daily TOPAMAX 100 MG TABS 978084 TOPIRAMATE Inactive ZOVIRAX 400 MG TABS Take 1 tablet every 8 hours as needed 2 ZOVIRAX 400 MG TABS 338760 ACYCLOVIR Inactive LATUDA 80 MG TABS 1 tablet daily LATUDA 80 MG TA BS LURASIDONE HCL Inactive OMEPRAZOLE 20 MG CPDR 1 tablet by mouth daily OMEPRAZOLE 20 MG CPDR 014542 OMEPRAZOLE Inactive BIOTIN 1000 MCG TABS Take 2 tablets daily BIOTIN 1000 MCG TABS 966958 BIOTIN Inactive [facility] MEL[facility] 3 MG TABS Take 1 tablet at bedtime. 2013 [facility] MEL[facility] 3 MG TABS 046114 MELATONIN Inactive ZOFRAN ODT 4 MG TBDP 1 po q6hr PRN Nausea ZOFRAN ODT 4 MG TBDP 064489 ONDANSETRON Inactive ORTHO TRI-CYCLEN (28) 0.18/0.215/0.25 MG-35 MCG TABS 1 daily ORTHO TRI-CYCLEN (28) 0.18/0.215/0.25 MG-35 MCG TABS 693589 NORGESTIM-ETH ESTRAD TRIPHASIC Inactive CLARITIN 10 MG TAB 1 tablet by mouth daily as needed for itchy r khari CLARITIN 10 MG TAB 360599 LORATADINE Inactive ORTHO TRI-CYCLEN (28) 0.18/0.215/0.25 MG-35 MCG TABS 1 daily ORTHO TRI-CYCLEN (28) 0.18/0.215/0.25 MG-35 MCG TABS 819279 NORGESTIM-ETH ESTRAD TRIPHASIC Inactive HYDROXYZINE HCL 25 MG TABS Take 1-2 tablets daily 2015 HYDROXYZINE HCL 25 MG TABS 426503 HYDROXYZINE HCL Inactive LORATADINE 10 MG TABS 1 tablet by mouth daily LORATADINE 10 MG TABS 354953 LORATADINE Inactive CEPHALEXIN 500 MG ORAL CAPS CEPHALEX IN 500 MG ORAL CAPS 869394 CEPHALEXIN Inactive PREDNISONE 20 MG TABS Take 2 daily for 3 days and then 1 herman ly for 3 days PREDNISONE 20 MG TABS 007724 PREDNISONE Inacti ve AMOXICILLIN 500 MG CAPS 2 po BID x 10 days AMOXICILLIN 500 MG CAPS 022901 AMOXICILLIN Inactive ZITHROMAX Z-CHACE 250 MG TABS 2 today, then 1 daily for 4 days 201 10/06/11 ZITHROMAX Z-CHACE 250 MG TABS 9826210 AZITHROMYCIN Inac tive AUGMENTIN 875-125 MG TAB 1 po BID x 10 days with food AUGMENTIN 875-125 MG TAB 489840 AMOXICILLIN-POT CLAVULANATE Inactiv e Advance Directives Directive [...] 18 yo)) Fluzone preservative free (>3 yrs.) [[id number]] Influenza, seasonal, injectable, preservative free MPSV4 (meningococcal polysaccharide vaccination) Menactra meningococcal polysaccharide vaccine (MPSV4) hepatitis A immunization #1 Havrix-Pedi hepa titis A vaccine, unspecified formulation Adacel (Tetanus, reduced Diphtheria, and acellular Per tussis Immunization) Adacel [[id number]] tetanus toxoid, reduced diph theria toxoid, and [...] 11 .0-15.0 platelet count 210 THOUSAND/UL 10*3/mm3 497-502 7639/11/02 mean platelet volume 10.3 fL 7.5-11.5 Lab [...] N Encounters Code Encounter Date Provider Facility CPT-55990 Level 3 Est. Patient 15:35:51 PIT FURNACE OPERATOR Ned Navarrete MD [facility] CPT-01347 Level 2 Est. Patient 12:43:40 CDT Ned Navarrete MD [facility] CPT-12386 Level 3 Est. Patient 14:38:48 CDT Toni duque DO [facility] CPT-99797 Level 3 Est. Patient 09:02:58 PIT FURNACE OPERATOR George paulson MD [facility] CPT-21800 Level 3 Est. Patient 17:42:32 CDT Ned Navarrete MD [facility] CPT-36915 Level 3 Est. Patient 11:04:31 PIT FURNACE OPERATOR Mariana Torrez APRN [facility] CPT-90104 Level 4 Est. Patient 12:27:05 PIT FURNACE OPERATOR Ned Navarrete MD [facility] CPT-13926 Level 3 Est. Patient 11:31:58 PIT FURNACE OPERATOR Ned Navarrete MD [facility] CPT-12734 Level 3 Est. Patient 16:49:32 CDT Ned Navarrete MD [facility] CPT-27611 Level 4 Est. Patient 14:11:59 PIT FURNACE OPERATOR Saskia green MD PhD [facility] CPT-13421 Level 3 Est. Patient 17:34:25 CDT Ned Navarrete MD [facility] CPT-56196 Level 3 Est. Patient 17:34:19 CDT Ned Navarrete MD [facility] CPT-09445 Level 3 Est. Patient 13:46:05 CDT Ned Navarrete MD [facility] CPT-82808 Level 3 Est. Patient 16:55:47 PIT FURNACE OPERATOR Ned Navarrete MD [facility] CPT-24728 Level 2 Est. Patient 17:33:08 PIT FURNACE OPERATOR Ned Navarrete MD [facility] CPT-87367 Level 3 Est. Patient 16:25:26 PIT FURNACE OPERATOR Ned Navarrete MD [facility] Procedures Code Procedure Name Date Entry Date Standard Desc ription CPT-53274 Visit 15:07:16 PIT FURNACE OPERATOR CPT-79901 Visit 16:49:41 PIT FURNACE OPERATOR CPT-58185 Sono OB limited - XRAY USE ONLY 16:38:01 CS T CPT-22594 Sono OB comp > 14 weeks - XRAY USE ONLY 17:00:59 PIT FURNACE OPERATOR CPT-36792 UA w micro - LAB USE ONLY 16:59:38 CDT 2015 CPT-63688 TSH - LAB USE ONLY 16:59:38 CDT CPT-35441 Venipuncture Draw Fee 16:59:38 CDT CPT-10778 Spec Collection and Handling Fee 14:01:24 C DT CPT-48048 Visit 14:01:24 CDT CPT-033 [facility] Med Screen 14:03:18 CDT CPT-033 [facility] Med Screen 11:04:57 CDT CPT-033 [facility] Med Screen 10:29:44 CDT CPT-36188 Administration 2+ single or combination vaccines inc oral 14:02:47 PIT FURNACE OPERATOR CPT-85840 Administration single or combination vac cine inc oral 14:02:47 PIT FURNACE OPERATOR CPT-94468 Hepatitis A ped/adol 2 dose schedule 14:02:47 PIT FURNACE OPERATOR CPT-24012 Gardasil 14:02:47 PIT FURNACE OPERATOR CPT-71705 Administration single or combination vac cine inc oral 11:40:38 PIT FURNACE OPERATOR CPT-52385 Gardasil 11:40:38 PIT FURNACE OPERATOR CPT-88768 Administration single or combination vac cine inc oral 09:45:00 CDT CPT-70877 Influenza Preservative Free split virus >age 3 09:45:00 CDT CPT-13768 Venipuncture Draw Fee 07:59:02 CDT
--- OUTSIDE RECORDS SUMMARY | 2019-10-10 20:31 | XMS REPORT | Clinical Summary ---
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 CONCUSSION [...] 1 herman ly for 3 days PREDNISONE 72683502940 No Longer Active Ned pérez MD Active CEPHALEXIN 500 MG ORAL CAPS CEPHALEXIN 56561653620 No Longer Active Ned Navarrete MD Active LATUDA 20 MG ORAL TABS LURASIDONE HCL 0081593 0230 Active Breanne Madl CALENDER OPERATOR HELPER Active LORATADINE 10 MG TABS 1 tablet by mouth daily L ORATADINE 68638806984 No Longer Active Breanne Madl CALENDER OPERATOR HELPER Active HYDROXYZINE HCL 25 MG TABS Take 1-2 tablets daily 2015 HYDROXYZINE HCL 20134008923 No Longer Active Breanne Madl CALENDER OPERATOR HELPER Active ORTHO TRI-CYCLEN (28) 0.18/0.215/0.25 MG-35 MCG TABS 1 daily NORGESTIM-ETH ESTRAD TRIPHASIC 18502768637 No Longer Active Breanne Madl CALENDER OPERATOR HELPER Active CLARITIN 10 MG TAB 1 tablet by mouth daily as needed for itchy r khari LORATADINE 08588874284 No Longer Active Ned Navarrete MD Active AUGMENTIN 875-125 MG TAB 1 po BID x 10 days with food AMOXICILLIN-POT CLAVULANATE 88164766298 No Longer Active Toni Washington DO Active ORTHO TRI-CYCLEN (28) 0.18/0.215/0.25 MG-35 MCG TABS 1 daily NORGESTIM-ETH ESTRAD TRIPHASIC 99071098597 No Longer Active Ned Navarrete MD Active ZOFRAN ODT 4 MG TBDP 1 po q6hr PRN Nausea ONDAN SETRON 63030934421 No Longer Active Ned Navarrete MD Active [facility] MELAT[facility] 3 MG TABS Take 1 tablet at bedtime. 2013 MELATONIN 81828080732 No Longer Active Ned Navarrete MD Activ e BIOTIN 1000 MCG TABS Take 2 tablets daily BIOTI N 69895369235 No Longer Active Ned Navarrete MD Active OMEPRAZOLE 20 MG CPDR 1 tablet by mouth daily O MEPRAZOLE 62238924313 No Longer Active Mariana Moses APRN Active LATUDA 80 MG TABS 1 tablet daily LURASIDONE HCL 93105541036 No Longer Active Mariana Moses APRN Active ZOVIRAX 400 MG TABS Take 1 tablet every 8 hours as needed 2 ACYCLOVIR 94158173354 No Longer Active Ned Navarrete MD Activ e ZITHROMAX Z-CHACE 250 MG TABS 2 today, then 1 daily for 4 days 201 10/06/11 AZITHROMYCIN 57058944609 No Longer Active Ned Navarrete MD Active TOPAMAX 100 MG TABS 1 tablet daily TOPIRAMATE 54 811592728 No Longer Active Ned Navarrete MD Active AMOXICILLIN 500 MG CAPS 2 po BID x 10 days AMOX ICILLIN 41213151264 No Longer Active Saskia Simon MD PhD Active NAPROSYN 375 MG TAB 1 twice a day as needed for chest pain 04/01 NAPROXEN 17415808478 No Longer Active Saskia Simon MD PhD Active HYDROCORTISONE 2.5 % EXT CREA Apply three times a day to aff ected area HYDROCORTISONE 89618074580 No Longer Active Ned Navarrete MD Active TOPIRAMATE 50 MG TABS 1 QD TOPIRAMATE 61209419066 No Longer Active Ned Navarrete MD Active FANAPT 6 MG TABS 1 BID ILOPERIDONE 44854043718 No L onger Active Ned Navarrete MD Active CIPROFLOXACIN HCL 0.3 % SOLN 1 drop in right eye every 2 hours for 2 days, then 1 drop four times a day CIPROFLOXACIN HCL 39320291315 No Longer Active Ned Navarrete MD Active LORATADINE 10 MG TABS 1 tablet by mouth daily L ORATADINE 52200955651 No Longer Active Ned Navarrete MD Active RANITIDINE HCL 150 MG CAPS 1 twice a day RANITI DINE HCL 03869832509 No Longer Active Ned Navarrete MD Active RANITIDINE HCL 150 MG CAPS 1 twice a day RANITIDINE HCL 150 MG CAPS 827981 RANITIDINE HCL Inactive LORATADINE 10 MG TABS 1 tablet by mouth daily LORATADINE 10 MG TABS 850693 LORATADINE Inactive CIPROFLOXACIN HCL 0.3 % SOLN 1 drop in right eye every 2 hours for 2 days, then 1 drop four times a day CIPROFLOXACIN HCL 0.3 % SOLN 019838 CIPROFLOXACIN HCL Inactive FANAPT 6 MG TABS 1 BID FANAPT 6 MG TABS ILO PERIDONE Inactive TOPIRAMATE 50 MG TABS 1 QD TOPIRAMATE 50 MG TABS 1 22409 TOPIRAMATE Inactive HYDROCORTISONE 2.5 % EXT CREA Apply three times a day to aff ected area HYDROCORTISONE 2.5 % EXT CREA 641605 HYDROCORTIS ONE Inactive NAPROSYN 375 MG TAB 1 twice a day as needed for chest pain 04/01 NAPROSYN 375 MG TAB NAPROXEN Inactive TOPAMAX 100 MG TABS 1 tablet daily TOPAMAX 100 MG TABS 672420 TOPIRAMATE Inactive ZOVIRAX 400 MG TABS Take 1 tablet every 8 hours as needed 2 ZOVIRAX 400 MG TABS 025033 ACYCLOVIR Inactive LATUDA 80 MG TABS 1 tablet daily LATUDA 80 MG TA BS LURASIDONE HCL Inactive OMEPRAZOLE 20 MG CPDR 1 tablet by mouth daily OMEPRAZOLE 20 MG CPDR 338484 OMEPRAZOLE Inactive BIOTIN 1000 MCG TABS Take 2 tablets daily BIOTIN 1000 MCG TABS 929447 BIOTIN Inactive [facility] M[facility] 3 MG TABS Take 1 tablet at bedtime. 2013 [facility] M[facility] 3 MG TABS 954463 MELATONIN Inactive ZOFRAN ODT 4 MG TBDP 1 po q6hr PRN Nausea ZOFRAN ODT 4 MG TBDP 479065 ONDANSETRON Inactive ORTHO TRI-CYCLEN (28) 0.18/0.215/0.25 MG-35 MCG TABS 1 daily ORTHO TRI-CYCLEN (28) 0.18/0.215/0.25 MG-35 MCG TABS 431757 NORGESTIM-ETH ESTRAD TRIPHASIC Inactive CLARITIN 10 MG TAB 1 tablet by mouth daily as needed for itchy r khari CLARITIN 10 MG TAB 471144 LORATADINE Inactive ORTHO TRI-CYCLEN (28) 0.18/0.215/0.25 MG-35 MCG TABS 1 daily ORTHO TRI-CYCLEN (28) 0.18/0.215/0.25 MG-35 MCG TABS 655187 NORGESTIM-ETH ESTRAD TRIPHASIC Inactive HYDROXYZINE HCL 25 MG TABS Take 1-2 tablets daily 2015 HYDROXYZINE HCL 25 MG TABS 308031 HYDROXYZINE HCL Inactive LORATADINE 10 MG TABS 1 tablet by mouth daily LORATADINE 10 MG TABS 145455 LORATADINE Inactive CEPHALEXIN 500 MG ORAL CAPS CEPHALEX IN 500 MG ORAL CAPS 382865 CEPHALEXIN Inactive PREDNISONE 20 MG TABS Take 2 daily for 3 days and then 1 herman ly for 3 days PREDNISONE 20 MG TABS 809527 PREDNISONE Inacti ve AMOXICILLIN 500 MG CAPS 2 po BID x 10 days AMOXICILLIN 500 MG CAPS 033868 AMOXICILLIN Inactive ZITHROMAX Z-CHACE 250 MG TABS 2 today, then 1 daily for 4 days 201 10/06/11 ZITHROMAX Z-CHACE 250 MG TABS 0689642 AZITHROMYCIN Inac tive AUGMENTIN 875-125 MG TAB 1 po BID x 10 days with food AUGMENTIN 875-125 MG TAB 505025 AMOXICILLIN-POT CLAVULANATE Inactiv e Advance Directives Directive [...] 18 yo)) Fluzone preservative free (>3 yrs.) [[id number]] Influenza, seasonal, injectable, preservative free MPSV4 (meningococcal polysaccharide vaccination) Menactra meningococcal polysaccharide vaccine (MPSV4) hepatitis A immunization #1 Havrix-Pedi hepa titis A vaccine, unspecified formulation Adacel (Tetanus, reduced Diphtheria, and acellular Per tussis Immunization) Adacel [[id number]] tetanus toxoid, reduced diph theria toxoid, and [...] 11 .0-15.0 platelet count 210 THOUSAND/UL 10*3/mm3 145-842 2232/11/02 mean platelet volume 10.3 fL 7.5-11.5 Lab [...] N Encounters Code Encounter Date Provider Facility CPT-94581 Level 3 Est. Patient 15:21:38 VACCINE MANAGER Rayna Pepper APRN [facility] CPT-68733 Level 3 Est. Patient 15:35:51 VACCINE MANAGER Ned Navarrete MD [facility] CPT-88872 Level 2 Est. Patient 12:43:40 CDT Ned Navarrete MD [facility] CPT-49633 Level 3 Est. Patient 14:38:48 CDT Toni duque DO [facility] CPT-25450 Level 3 Est. Patient 09:02:58 VACCINE MANAGER George paulson MD [facility] CPT-60849 Level 3 Est. Patient 17:42:32 CDT Ned Navarrete MD [facility] CPT-32325 Level 3 Est. Patient 11:04:31 VACCINE MANAGER Mariana Torrez ALEXIS [facility] CPT-17906 Level 4 Est. Patient 12:27:05 VACCINE MANAGER Ned Naavrrete MD [facility] CPT-58926 Level 3 Est. Patient 11:31:58 VACCINE MANAGER Ned Navarrete MD [facility] CPT-50245 Level 3 Est. Patient 16:49:32 CDT Ned Navarrete MD [facility] CPT-22753 Level 4 Est. Patient 14:11:59 VACCINE MANAGER Saskia green MD PhD [facility] CPT-72628 Level 3 Est. Patient 17:34:25 CDT Ned Navarrete MD [facility] CPT-16053 Level 3 Est. Patient 17:34:19 CDT Ned Navarrete MD [facility] CPT-77255 Level 3 Est. Patient 13:46:05 CDT Ned Navarrete MD [facility] CPT-89283 Level 3 Est. Patient 16:55:47 VACCINE MANAGER Ned Navarrete MD [facility] CPT-89999 Level 2 Est. Patient 17:33:08 VACCINE MANAGER Ned Navarrete MD [facility] CPT-00638 Level 3 Est. Patient 16:25:26 VACCINE MANAGER Ned Navarrete MD [facility] Procedures Code Procedure Name Date Entry Date Standard Desc ription CPT-52058 Visit 15:07:16 VACCINE MANAGER CPT-80373 Visit 16:49:41 VACCINE MANAGER CPT-04761 Sono OB limited - XRAY USE ONLY 16:38:01 CS T CPT-16744 Sono OB comp > 14 weeks - XRAY USE ONLY 17:00:59 VACCINE MANAGER CPT-91047 UA w micro - LAB USE ONLY 16:59:38 CDT 2015 CPT-78203 TSH - LAB USE ONLY 16:59:38 CDT CPT-82013 Venipuncture Draw Fee 16:59:38 CDT CPT-83764 Spec Collection and Handling Fee 14:01:24 C DT CPT-12736 Visit 14:01:24 CDT CPT-033 [facility] Med Screen 14:03:18 CDT CPT-033 KB Med Screen 11:04:57 CDT CPT-033 [facility] Med Screen 10:29:44 CDT CPT-63100 Administration 2+ single or combination vaccines inc oral 14:02:47 VACCINE MANAGER CPT-75599 Administration single or combination vac cine inc oral 14:02:47 VACCINE MANAGER CPT-60797 Hepatitis A ped/adol 2 dose schedule 14:02:47 VACCINE MANAGER CPT-59179 Gardasil 14:02:47 VACCINE MANAGER CPT-43979 Administration single or combination vac cine inc oral 11:40:38 VACCINE MANAGER CPT-82787 Gardasil 11:40:38 VACCINE MANAGER CPT-75738 Administration single or combination vac cine inc oral 09:45:00 CDT CPT-13253 Influenza Preservative Free split virus >age 3 09:45:00 CDT CPT-32873 Venipuncture Draw Fee 07:59:02 CDT
--- OUTSIDE RECORDS SUMMARY | 2019-10-10 20:31 | XMS REPORT | Clinical Summary ---
Author Author Admin, Son Rodriguez [facility] Address Unknown Phone Unavailable Allergies, Adverse Reactions, [...] condition or complication Methamphetamine abuse 305.70 Inactive [facility] Amphetamine or related acting [...] unspecified use Upper respiratory infection 465.9 Active Nde Navarrete MD Acute upper respiratory infections of un specified site V22.2 Active Maia Wood LPN state, incidental WEIGHT GAIN ICD-783.1 Inactive Ned Navarrete MD NASOLACRIMAL DUCT OBSTRUCTION, LEFT ICD-375.56 Inactive Ned Navarrete MD ANKLE SPRAIN ICD-845.00 Inactive eNd manley MD NASOLACRIMAL DUCT OBSTRUCTION, RIGHT ICD-375.56 [...] 1 herman ly for 3 days PREDNISONE 95493992286 No Longer Active Ned pérez MD Active CEPHALEXIN 500 MG ORAL CAPS CEPHALEXIN 53163851710 No Longer Active Ned Navarrete MD Active LATUDA 20 MG ORAL TABS LURASIDONE HCL 0857380 0230 Active Breanne Madl SEWAGE PLANT ATTENDANT Active LORATADINE 10 MG TABS 1 tablet by mouth daily L ORATADINE 80755933112 No Longer Active Breanne Madl SEWAGE PLANT ATTENDANT Active HYDROXYZINE HCL 25 MG TABS Take 1-2 tablets daily 2015 HYDROXYZINE HCL 74728591565 No Longer Active Breanne Madl SEWAGE PLANT ATTENDANT Active ORTHO TRI-CYCLEN (28) 0.18/0.215/0.25 MG-35 MCG TABS 1 daily NORGESTIM-ETH ESTRAD TRIPHASIC 21136484457 No Longer Active Breanne Madl SEWAGE PLANT ATTENDANT Active CLARITIN 10 MG TAB 1 tablet by mouth daily as needed for itchy r khari LORATADINE 18156209730 No Longer Active Ned Navarrete MD Active AUGMENTIN 875-125 MG TAB 1 po BID x 10 days with food AMOXICILLIN-POT CLAVULANATE 51323234858 No Longer Active Toni Washington DO Active ORTHO TRI-CYCLEN (28) 0.18/0.215/0.25 MG-35 MCG TABS 1 daily NORGESTIM-ETH ESTRAD TRIPHASIC 31667270290 No Longer Active Ned Navarrete MD Active ZOFRAN ODT 4 MG TBDP 1 po q6hr PRN Nausea ONDAN SETRON 52126763946 No Longer Active Ned Navarrete MD Active [facility] MEL[facility] 3 MG TABS Take 1 tablet at bedtime. 2013 MELATONIN 66027270393 No Longer Active Ned Navarrete MD Activ e BIOTIN 1000 MCG TABS Take 2 tablets daily BIOTI N 32870223743 No Longer Active Ned Navarrete MD Active OMEPRAZOLE 20 MG CPDR 1 tablet by mouth daily O MEPRAZOLE 83181092640 No Longer Active Mariana Moses APRN Active LATUDA 80 MG TABS 1 tablet daily LURASIDONE HCL 88922652196 No Longer Active Mariana Moses APRN Active ZOVIRAX 400 MG TABS Take 1 tablet every 8 hours as needed 2 ACYCLOVIR 34279819723 No Longer Active Ned Navarrete MD Activ e ZITHROMAX Z-CHACE 250 MG TABS 2 today, then 1 daily for 4 days 201 10/06/11 AZITHROMYCIN 75018080743 No Longer Active Ned Navarrete MD Active TOPAMAX 100 MG TABS 1 tablet daily TOPIRAMATE 54 119683470 No Longer Active Ned Navarrete MD Active AMOXICILLIN 500 MG CAPS 2 po BID x 10 days AMOX ICILLIN 39725934883 No Longer Active Saskia Simon MD PhD Active NAPROSYN 375 MG TAB 1 twice a day as needed for chest pain 04/01 NAPROXEN 76848653773 No Longer Active Saskia Simon MD PhD Active HYDROCORTISONE 2.5 % EXT CREA Apply three times a day to aff ected area HYDROCORTISONE 10489017829 No Longer Active Ned Navarrete MD Active TOPIRAMATE 50 MG TABS 1 QD TOPIRAMATE 90353668341 No Longer Active Ned Navarrete MD Active FANAPT 6 MG TABS 1 BID ILOPERIDONE 89280260530 No L onger Active Ned Navarrete MD Active CIPROFLOXACIN HCL 0.3 % SOLN 1 drop in right eye every 2 hours for 2 days, then 1 drop four times a day CIPROFLOXACIN HCL 52115359014 No Longer Active Ned Navarrete MD Active LORATADINE 10 MG TABS 1 tablet by mouth daily L ORATADINE 63178639310 No Longer Active Ned Navarrete MD Active RANITIDINE HCL 150 MG CAPS 1 twice a day RANITI DINE HCL 30197810320 No Longer Active Ned Navarrete MD Active RANITIDINE HCL 150 MG CAPS 1 twice a day RANITIDINE HCL 150 MG CAPS 678727 RANITIDINE HCL Inactive LORATADINE 10 MG TABS 1 tablet by mouth daily LORATADINE 10 MG TABS 674149 LORATADINE Inactive CIPROFLOXACIN HCL 0.3 % SOLN 1 drop in right eye every 2 hours for 2 days, then 1 drop four times a day CIPROFLOXACIN HCL 0.3 % SOLN 486894 CIPROFLOXACIN HCL Inactive FANAPT 6 MG TABS 1 BID FANAPT 6 MG TABS ILO PERIDONE Inactive TOPIRAMATE 50 MG TABS 1 QD TOPIRAMATE 50 MG TABS 1 27500 TOPIRAMATE Inactive HYDROCORTISONE 2.5 % EXT CREA Apply three times a day to aff ected area HYDROCORTISONE 2.5 % EXT CREA 018284 HYDROCORTIS ONE Inactive NAPROSYN 375 MG TAB 1 twice a day as needed for chest pain 04/01 NAPROSYN 375 MG TAB NAPROXEN Inactive TOPAMAX 100 MG TABS 1 tablet daily TOPAMAX 100 MG TABS 934585 TOPIRAMATE Inactive ZOVIRAX 400 MG TABS Take 1 tablet every 8 hours as needed 2 ZOVIRAX 400 MG TABS 508033 ACYCLOVIR Inactive LATUDA 80 MG TABS 1 tablet daily LATUDA 80 MG TA BS LURASIDONE HCL Inactive OMEPRAZOLE 20 MG CPDR 1 tablet by mouth daily OMEPRAZOLE 20 MG CPDR 068941 OMEPRAZOLE Inactive BIOTIN 1000 MCG TABS Take 2 tablets daily BIOTIN 1000 MCG TABS 234252 BIOTIN Inactive [facility] MEL[facility] 3 MG TABS Take 1 tablet at bedtime. 2013 [facility] MEL[facility] 3 MG TABS 131673 MELATONIN Inactive ZOFRAN ODT 4 MG TBDP 1 po q6hr PRN Nausea ZOFRAN ODT 4 MG TBDP 311529 ONDANSETRON Inactive ORTHO TRI-CYCLEN (28) 0.18/0.215/0.25 MG-35 MCG TABS 1 daily ORTHO TRI-CYCLEN (28) 0.18/0.215/0.25 MG-35 MCG TABS 944094 NORGESTIM-ETH ESTRAD TRIPHASIC Inactive CLARITIN 10 MG TAB 1 tablet by mouth daily as needed for itchy r khari CLARITIN 10 MG TAB 144941 LORATADINE Inactive ORTHO TRI-CYCLEN (28) 0.18/0.215/0.25 MG-35 MCG TABS 1 daily ORTHO TRI-CYCLEN (28) 0.18/0.215/0.25 MG-35 MCG TABS 002521 NORGESTIM-ETH ESTRAD TRIPHASIC Inactive HYDROXYZINE HCL 25 MG TABS Take 1-2 tablets daily 2015 HYDROXYZINE HCL 25 MG TABS 578978 HYDROXYZINE HCL Inactive LORATADINE 10 MG TABS 1 tablet by mouth daily LORATADINE 10 MG TABS 031282 LORATADINE Inactive CEPHALEXIN 500 MG ORAL CAPS CEPHALEX IN 500 MG ORAL CAPS 773212 CEPHALEXIN Inactive PREDNISONE 20 MG TABS Take 2 daily for 3 days and then 1 herman ly for 3 days PREDNISONE 20 MG TABS 002567 PREDNISONE Inacti ve AMOXICILLIN 500 MG CAPS 2 po BID x 10 days AMOXICILLIN 500 MG CAPS 690625 AMOXICILLIN Inactive ZITHROMAX Z-CHACE 250 MG TABS 2 today, then 1 daily for 4 days 201 10/06/11 ZITHROMAX Z-CHACE 250 MG TABS 2540671 AZITHROMYCIN Inac tive AUGMENTIN 875-125 MG TAB 1 po BID x 10 days with food AUGMENTIN 875-125 MG TAB 738379 AMOXICILLIN-POT CLAVULANATE Inactiv e Advance Directives Directive [...] 16 yo)) Fluzone preservative free (>3 yrs.) [[id number]] Influenza, seasonal, injectable, preservative free MPSV4 (meningococcal polysaccharide vaccination) Menactra meningococcal polysaccharide vaccine (MPSV4) hepatitis A immunization #1 Havrix-Pedi hepa titis A vaccine, unspecified formulation Adacel (Tetanus, reduced Diphtheria, and acellular Per tussis Immunization) Adacel [[id number]] tetanus toxoid, reduced diph theria toxoid, and [...] 11 .0-15.0 platelet count 210 THOUSAND/UL 10*3/mm3 236-292 2192/11/02 mean platelet volume 10.3 fL 7.5-11.5 Lab [...] N Encounters Code Encounter Date Provider Facility CPT-40802 Level 3 Est. Patient 15:21:38 OLIVIA Pepper [facility] CPT-27455 Level 3 Est. Patient 15:35:[address] Ned Navarrete MD [facility]-32579 Level 2 Est. Patient 12:43:40 CDT Ned Navarrete MD [facility]-40956 Level 3 Est. Patient 14:38:48 CDT Toni duque DO [facility] CPT-86182 Level 3 Est. Patient 09:02:[address] George paulson MD [facility] CPT-62313 Level 3 Est. Patient 17:42:32 CDT Ned Navarrete MD [facility]-43032 Level 3 Est. Patient 11:04:[address] Mariana Torrez [facility] CPT-36719 Level 4 Est. Patient 12:27:[address] Ned Navarrete MD [facility]-06500 Level 3 Est. Patient 11:31:[address] HEL[address] Ned Navarrete MD [facility] CPT-00895 Level 3 Est. Patient 16:49:32 CDT Ned Navarrete MD [facility]-80031 Level 4 Est. Patient 14:11:[address] [employer] Saskia green MD, PhD [facility] CPT-18661 Level 3 Est. Patient 17:34:25 CDT Ned Navarrete MD [facility] CPT-78368 Level 3 Est. Patient 17:34:19 CDT Ned Navarrete MD [facility]-00127 Level 3 Est. Patient 13:46:05 CDT Ned Navarrete MD [facility]-12310 Level 3 Est. Patient 16:55:[address] HEL[address] Ned Navarrete MD [facility]-45323 Level 2 Est. Patient 17:33:[address] HEL[address] Ned Navarrete MD [facility]-81341 Level 3 Est. Patient 16:25:[address] Ned Navarrete MD [facility] Procedures Code Procedure Name Date Entry Date Standard Desc ription CPT-98611 Visit 14:52:59 CDT CPT-67482 Visit 15:17:20 CDT CPT-98119 Visit 15:57:29 CDT CPT-68991 First Vx - Ix admin via ID I M or jet injects without counseling by physician 15:53:15 CDT CPT-69654 Boostrix Intramuscular Suspension 5-2.5-18.5 201 01/28/11 15:53:14 CDT CPT-26994 Tdap 7yrs or > 14:41:06 CDT CPT-74958 Visit 17:47:08 CDT CPT-65874 OBGTT 1 - LAB USE ONLY 10:15:57 CDT CPT-17602 Venipuncture Draw Fee 10:15:57 CDT CPT-34693 Visit 15:07:[address] [facility] [facility] CPT-51358 Visit 16:49:[address] [facility] [facility] CPT-57728 Sono OB limited - XRAY USE ONLY 16:38:01 CS T CPT-12358 [facility] OB comp > 14 weeks - XRAY USE ONLY 17:00:[address] [facility] CPT-19650 UA w micro - LAB USE ONLY 16:59:38 CDT 2015 CPT-54866 TSH - LAB USE ONLY 16:59:38 CDT CPT-59019 Venipuncture Draw Fee 16:59:38 CDT CPT-88113 Spec Collection and Handling Fee 14:01:24 C DT CPT-72300 Visit 14:01:24 CDT CPT-033 [facility] Med Screen 14:03:18 CDT CPT-033 [facility] Med Screen 11:04:57 CDT CPT-033 [facility] Med Screen 10:29:44 CDT CPT-49463 Administration 2+ single or combination vaccines inc oral 14:02:[address] [facility] [facility] CPT-47668 Administration single or combination vac cine inc oral 14:02:[address] [facility] [facility] CPT-46391 Hepatitis A ped/adol 2 dose schedule 14:02:[address] [facility] [facility] CPT-34101 Gardasil 14:02:[address] [facility] [facility] CPT-71241 Administration single or combination vac cine inc oral 11:40:[address] [facility] HEL[facility] CPT-57780 Gardasil 11:40:[address] [facility] [facility] CPT-98018 Administration single or combination vac cine inc oral 09:45:00 CDT CPT-97619 Influenza Preservative Free split virus >age 3 09:45:00 CDT CPT-56203 Venipuncture Draw Fee 07:59:02 CDT
--- OUTSIDE RECORDS SUMMARY | 2019-10-10 20:32 | XMS REPORT | Clinical Summary ---
Author Author Admin, Son Chan Organization [employer] Address Unknown Phone Unavailable Allergies, Adverse Reactions, [...] 1 herman ly for 3 days PREDNISONE 14638165341 No Longer Active Ned pérez MD Active CEPHALEXIN 500 MG ORAL CAPS CEPHALEXIN 31628835937 No Longer Active Ned Navarrete MD Active LATUDA 20 MG ORAL TABS LURASIDONE HCL 8586091 0230 Active Breanne Madl AUDOGRAPH OPERATOR Active LORATADINE 10 MG TABS 1 tablet by mouth daily L ORATADINE 96737898302 No Longer Active Breanne Madl AUDOGRAPH OPERATOR Active HYDROXYZINE HCL 25 MG TABS Take 1-2 tablets daily 2015 HYDROXYZINE HCL 50823076252 No Longer Active Breanne Madl AUDOGRAPH OPERATOR Active ORTHO TRI-CYCLEN (28) 0.18/0.215/0.25 MG-35 MCG TABS 1 daily NORGESTIM-ETH ESTRAD TRIPHASIC 39884957180 No Longer Active Breanne Madl AUDOGRAPH OPERATOR Active CLARITIN 10 MG TAB 1 tablet by mouth daily as needed for itchy r khari LORATADINE 78070253577 No Longer Active Ned Navarrete MD Active AUGMENTIN 875-125 MG TAB 1 po BID x 10 days with food AMOXICILLIN-POT CLAVULANATE 02721363342 No Longer Active Toni Washington DO Active ORTHO TRI-CYCLEN (28) 0.18/0.215/0.25 MG-35 MCG TABS 1 daily NORGESTIM-ETH ESTRAD TRIPHASIC 03798213651 No Longer Active Ned Navarrete MD Active ZOFRAN ODT 4 MG TBDP 1 po q6hr PRN Nausea ONDAN SETRON 26842597682 No Longer Active Ned Navarrete MD Active [facility] MEL[facility] 3 MG TABS Take 1 tablet at bedtime. 2013 MELATONIN 95063991372 No Longer Active Ned Navarrete MD Activ e BIOTIN 1000 MCG TABS Take 2 tablets daily BIOTI N 76981156941 No Longer Active Ned Navarrete MD Active OMEPRAZOLE 20 MG CPDR 1 tablet by mouth daily O MEPRAZOLE 12051862432 No Longer Active Mariana Moses APRN Active LATUDA 80 MG TABS 1 tablet daily LURASIDONE HCL 38230198724 No Longer Active Mariana Moses APRN Active ZOVIRAX 400 MG TABS Take 1 tablet every 8 hours as needed 2 ACYCLOVIR 32513928428 No Longer Active Ned Navarrete MD Activ e ZITHROMAX Z-CHACE 250 MG TABS 2 today, then 1 daily for 4 days 201 10/06/11 AZITHROMYCIN 77902354924 No Longer Active Ned Navarrete MD Active TOPAMAX 100 MG TABS 1 tablet daily TOPIRAMATE 54 571516221 No Longer Active Ned Navarrete MD Active AMOXICILLIN 500 MG CAPS 2 po BID x 10 days AMOX ICILLIN 23461135843 No Longer Active Saskia Simon MD PhD Active NAPROSYN 375 MG TAB 1 twice a day as needed for chest pain 04/01 NAPROXEN 01943496205 No Longer Active Saskia Simon MD PhD Active HYDROCORTISONE 2.5 % EXT CREA Apply three times a day to aff ected area HYDROCORTISONE 68732665895 No Longer Active Ned Navarrete MD Active TOPIRAMATE 50 MG TABS 1 QD TOPIRAMATE 06284928429 No Longer Active Ned Navarrete MD Active FANAPT 6 MG TABS 1 BID ILOPERIDONE 52383006421 No L onger Active Ned Navarrete MD Active CIPROFLOXACIN HCL 0.3 % SOLN 1 drop in right eye every 2 hours for 2 days, then 1 drop four times a day CIPROFLOXACIN HCL 14741321801 No Longer Active Ned Navarrete MD Active LORATADINE 10 MG TABS 1 tablet by mouth daily L ORATADINE 15856489890 No Longer Active Ned Navarrete MD Active RANITIDINE HCL 150 MG CAPS 1 twice a day RANITI DINE HCL 78663052676 No Longer Active Ned Navarrete MD Active RANITIDINE HCL 150 MG CAPS 1 twice a day RANITIDINE HCL 150 MG CAPS 248985 RANITIDINE HCL Inactive LORATADINE 10 MG TABS 1 tablet by mouth daily LORATADINE 10 MG TABS 713243 LORATADINE Inactive CIPROFLOXACIN HCL 0.3 % SOLN 1 drop in right eye every 2 hours for 2 days, then 1 drop four times a day CIPROFLOXACIN HCL 0.3 % SOLN 695189 CIPROFLOXACIN HCL Inactive FANAPT 6 MG TABS 1 BID FANAPT 6 MG TABS ILO PERIDONE Inactive TOPIRAMATE 50 MG TABS 1 QD TOPIRAMATE 50 MG TABS 1 49550 TOPIRAMATE Inactive HYDROCORTISONE 2.5 % EXT CREA Apply three times a day to aff ected area HYDROCORTISONE 2.5 % EXT CREA 717088 HYDROCORTIS ONE Inactive NAPROSYN 375 MG TAB 1 twice a day as needed for chest pain 04/01 NAPROSYN 375 MG TAB NAPROXEN Inactive TOPAMAX 100 MG TABS 1 tablet daily TOPAMAX 100 MG TABS 111747 TOPIRAMATE Inactive ZOVIRAX 400 MG TABS Take 1 tablet every 8 hours as needed 2 ZOVIRAX 400 MG TABS 555916 ACYCLOVIR Inactive LATUDA 80 MG TABS 1 tablet daily LATUDA 80 MG TA BS LURASIDONE HCL Inactive OMEPRAZOLE 20 MG CPDR 1 tablet by mouth daily OMEPRAZOLE 20 MG CPDR 969223 OMEPRAZOLE Inactive BIOTIN 1000 MCG TABS Take 2 tablets daily BIOTIN 1000 MCG TABS 375775 BIOTIN Inactive [facility] M[facility] 3 MG TABS Take 1 tablet at bedtime. 2013 [facility] MEL[facility]IN 3 MG TABS 669475 MELATONIN Inactive ZOFRAN ODT 4 MG TBDP 1 po q6hr PRN Nausea ZOFRAN ODT 4 MG TBDP 655716 ONDANSETRON Inactive ORTHO TRI-CYCLEN (28) 0.18/0.215/0.25 MG-35 MCG TABS 1 daily ORTHO TRI-CYCLEN (28) 0.18/0.215/0.25 MG-35 MCG TABS 210093 NORGESTIM-ETH ESTRAD TRIPHASIC Inactive CLARITIN 10 MG TAB 1 tablet by mouth daily as needed for itchy r khari CLARITIN 10 MG TAB 619659 LORATADINE Inactive ORTHO TRI-CYCLEN (28) 0.18/0.215/0.25 MG-35 MCG TABS 1 daily ORTHO TRI-CYCLEN (28) 0.18/0.215/0.25 MG-35 MCG TABS 564915 NORGESTIM-ETH ESTRAD TRIPHASIC Inactive HYDROXYZINE HCL 25 MG TABS Take 1-2 tablets daily 2015 HYDROXYZINE HCL 25 MG TABS 272885 HYDROXYZINE HCL Inactive LORATADINE 10 MG TABS 1 tablet by mouth daily LORATADINE 10 MG TABS 168896 LORATADINE Inactive CEPHALEXIN 500 MG ORAL CAPS CEPHALEX IN 500 MG ORAL CAPS 918673 CEPHALEXIN Inactive PREDNISONE 20 MG TABS Take 2 daily for 3 days and then 1 herman ly for 3 days PREDNISONE 20 MG TABS 685663 PREDNISONE Inacti ve AMOXICILLIN 500 MG CAPS 2 po BID x 10 days AMOXICILLIN 500 MG CAPS 320463 AMOXICILLIN Inactive ZITHROMAX Z-CHACE 250 MG TABS 2 today, then 1 daily for 4 days 201 10/06/11 ZITHROMAX Z-CHACE 250 MG TABS 5174919 AZITHROMYCIN Inac tive AUGMENTIN 875-125 MG TAB 1 po BID x 10 days with food AUGMENTIN 875-125 MG TAB 353648 AMOXICILLIN-POT CLAVULANATE Inactiv e Advance Directives Directive [...] 18 yo)) Fluzone preservative free (>3 yrs.) [[id number]] Influenza, seasonal, injectable, preservative free MPSV4 (meningococcal polysaccharide vaccination) Menactra meningococcal polysaccharide vaccine (MPSV4) hepatitis A immunization #1 Havrix-Pedi hepa titis A vaccine, unspecified formulation Adacel (Tetanus, reduced Diphtheria, and acellular Per tussis Immunization) Adacel [VGT515] tetanus toxoid, reduced diph theria toxoid, and [...] 11 .0-15.0 platelet count 210 THOUSAND/UL 10*3/mm3 464-064 6181/11/02 mean platelet volume 10.3 fL 7.5-11.5 Lab [...] N Encounters Code Encounter Date Provider Facility CPT-35057 Level 3 Est. Patient 15:21:38 STEREO EQUIPMENT INSTALLER Rayna Pepper [facility] CPT-28970 Level 3 Est. Patient 15:35:51 STEREO EQUIPMENT INSTALLER Ned Navarrete MD [facility] CPT-24060 Level 2 Est. Patient 12:43:40 CDT Ned Navarrete MD [facility] CPT-07510 Level 3 Est. Patient 14:38:48 CDT Toni duque DO [facility] CPT-30853 Level 3 Est. Patient 09:02:58 STEREO EQUIPMENT INSTALLER George paulson MD [facility] CPT-49998 Level 3 Est. Patient 17:42:32 CDT Ned Navarrete MD [facility] CPT-98530 Level 3 Est. Patient 11:04:31 STEREO EQUIPMENT INSTALLER Mariana Torrez [facility] CPT-84593 Level 4 Est. Patient 12:27:05 STEREO EQUIPMENT INSTALLER Ned Navarrete MD [facility] CPT-63185 Level 3 Est. Patient 11:31:58 STEREO EQUIPMENT INSTALLER Ned Navarrete MD [facility] CPT-14490 Level 3 Est. Patient 16:49:32 CDT Ned Navarrete MD [facility] CPT-09595 Level 4 Est. Patient 14:11:59 STEREO EQUIPMENT INSTALLER Saskia green MD PhD [facility] CPT-95739 Level 3 Est. Patient 17:34:25 CDT Ned Navarrete MD [facility] CPT-60909 Level 3 Est. Patient 17:34:19 CDT Ned Navarrete MD [facility] CPT-87618 Level 3 Est. Patient 13:46:05 CDT Ned Navarrete MD [facility] CPT-52327 Level 3 Est. Patient 16:55:47 STEREO EQUIPMENT INSTALLER Ned Navarrete MD [facility] CPT-00863 Level 2 Est. Patient 17:33:08 STEREO EQUIPMENT INSTALLER Ned Navarrete MD [facility] CPT-06657 Level 3 Est. Patient 16:25:26 STEREO EQUIPMENT INSTALLER Ned Navarrete MD [facility] Procedures Code Procedure Name Date Entry Date Standard Desc ription CPT-45272 Visit 15:57:29 CDT CPT-57890 First Vx - Ix admin via ID I M or jet injects without counseling by physician 15:53:15 CDT CPT-81556 Boostrix Intramuscular Suspension 5-2.5-18.5 201 01/28/11 15:53:14 CDT CPT-66170 Tdap 7yrs or > 14:41:06 CDT CPT-90872 Visit 17:47:08 CDT CPT-10127 OBGTT 1 - LAB USE ONLY 10:15:57 CDT CPT-26710 Venipuncture Draw Fee 10:15:57 CDT CPT-64673 Visit 15:07:16 [employer]EREO EQUIPMENT INSTALLER CPT-61131 Visit 16:49:41 STEREO EQUIPMENT INSTALLER CPT-51823 Sono OB limited - XRAY USE ONLY 16:38:01 CS T CPT-22373 Sono OB comp > 14 weeks - XRAY USE ONLY 17:00:59 STEREO EQUIPMENT INSTALLER CPT-31853 UA w micro - LAB USE ONLY 16:59:38 CDT 2015 CPT-10948 TSH - LAB USE ONLY 16:59:38 CDT CPT-57072 Venipuncture Draw Fee 16:59:38 CDT CPT-19955 Spec Collection and Handling Fee 14:01:24 C DT CPT-95786 Visit 14:01:24 CDT CPT-033 KB Med Screen 14:03:18 CDT CPT-033 KB Med Screen 11:04:57 CDT CPT-033 KB Med Screen 10:29:44 CDT CPT-91128 Administration 2+ single or combination vaccines inc oral 14:02:47 [employer]EREO EQUIPMENT INSTALLER CPT-87367 Administration single or combination vac cine inc oral 14:02:47 STEREO EQUIPMENT INSTALLER CPT-52635 Hepatitis A ped/adol 2 dose schedule 14:02:47 STEREO EQUIPMENT INSTALLER CPT-53939 Gardasil 14:02:47 STEREO EQUIPMENT INSTALLER CPT-91012 Administration single or combination vac cine inc oral 11:40:38 STEREO EQUIPMENT INSTALLER CPT-37263 Gardasil 11:40:38 STEREO EQUIPMENT INSTALLER CPT-59875 Administration single or combination vac cine inc oral 09:45:00 CDT CPT-14376 Influenza Preservative Free split virus >age 3 09:45:00 CDT CPT-50252 Venipuncture Draw Fee 07:59:02 CDT
--- OUTSIDE RECORDS SUMMARY | 2019-10-10 20:32 | XMS REPORT | Clinical Summary ---
Author Author Admin, Son Chan Organization [employer] Address Unknown Phone Unavailable Allergies, Adverse Reactions, [...] weight gain BIPOLAR DISORDER 296.7 Active Ned Duomnt Bipolar I disorder, most recent episode (or [...] 1 tablet by mouth daily L ORATADINE 66672520365 No Longer Active Breanne Madl MANTEL CRAFTSMAN Active HYDROXYZINE HCL 25 MG TABS Take 1-2 tablets daily 2015 HYDROXYZINE HCL 61705818737 No Longer Active Breanne Madl MANTEL CRAFTSMAN Active ORTHO TRI-CYCLEN (28) 0.18/0.215/0.25 MG-35 MCG TABS 1 daily NORGESTIM-ETH ESTRAD TRIPHASIC 41271929015 No Longer Active Breanne Madl MANTEL CRAFTSMAN Active CLARITIN 10 MG TAB 1 tablet by mouth daily as needed for itchy r khari LORATADINE 14286211025 No Longer Active Ned Navarrete MD Active AUGMENTIN 875-125 MG TAB 1 po BID x 10 days with food AMOXICILLIN-POT CLAVULANATE 46454522932 No Longer Active Toni Washington DO Active ORTHO TRI-CYCLEN (28) 0.18/0.215/0.25 MG-35 MCG TABS 1 daily NORGESTIM-ETH ESTRAD TRIPHASIC 13223853624 No Longer Active Ned Navarrete MD Active ZOFRAN ODT 4 MG TBDP 1 po q6hr PRN Nausea ONDAN SETRON 29709121062 No Longer Active Ned Navarrete MD Active [facility] MEL[facility] 3 MG TABS Take 1 tablet at bedtime. 2013 MELATONIN 95420418275 No Longer Active Ned Navarrete MD Activ e BIOTIN 1000 MCG TABS Take 2 tablets daily BIOTI N 02345598400 No Longer Active Ned Navarrete MD Active OMEPRAZOLE 20 MG CPDR 1 tablet by mouth daily O MEPRAZOLE 42606984496 No Longer Active Mariana Moses APRN Active LATUDA 80 MG TABS 1 tablet daily LURASIDONE HCL 75419844921 No Longer Active Mariana Moses APRN Active ZOVIRAX 400 MG TABS Take 1 tablet every 8 hours as needed 2 ACYCLOVIR 09596996163 No Longer Active Ned Navarrete MD Activ e ZITHROMAX Z-CHACE 250 MG TABS 2 today, then 1 daily for 4 days 201 10/06/11 AZITHROMYCIN 72951494594 No Longer Active Ned Navarrete MD Active TOPAMAX 100 MG TABS 1 tablet daily TOPIRAMATE 54 508188701 No Longer Active Ned Navarrete MD Active AMOXICILLIN 500 MG CAPS 2 po BID x 10 days AMOX ICILLIN 20557299967 No Longer Active Saskia Simon MD PhD Active NAPROSYN 375 MG TAB 1 twice a day as needed for chest pain 04/01 NAPROXEN 98418967414 No Longer Active Saskia Simon MD PhD Active HYDROCORTISONE 2.5 % EXT CREA Apply three times a day to aff ected area HYDROCORTISONE 56619856644 No Longer Active Ned Navarrete MD Active TOPIRAMATE 50 MG TABS 1 QD TOPIRAMATE 79144156027 No Longer Active Ned Navarrete MD Active FANAPT 6 MG TABS 1 BID ILOPERIDONE 29489684578 No L onger Active Ned Navarrete MD Active CIPROFLOXACIN HCL 0.3 % SOLN 1 drop in right eye every 2 hours for 2 days, then 1 drop four times a day CIPROFLOXACIN HCL 31371364441 No Longer Active Ned Navarrete MD Active LORATADINE 10 MG TABS 1 tablet by mouth daily L ORATADINE 30112004234 No Longer Active Ned Navarrete MD Active RANITIDINE HCL 150 MG CAPS 1 twice a day RANITI DINE HCL 20634244706 No Longer Active Ned Navarrete MD Active RANITIDINE HCL 150 MG CAPS 1 twice a day RANITIDINE HCL 150 MG CAPS 821857 RANITIDINE HCL Inactive LORATADINE 10 MG TABS 1 tablet by mouth daily LORATADINE 10 MG TABS 699206 LORATADINE Inactive CIPROFLOXACIN HCL 0.3 % SOLN 1 drop in right eye every 2 hours for 2 days, then 1 drop four times a day CIPROFLOXACIN HCL 0.3 % SOLN 368918 CIPROFLOXACIN HCL Inactive FANAPT 6 MG TABS 1 BID FANAPT 6 MG TABS ILO PERIDONE Inactive TOPIRAMATE 50 MG TABS 1 QD TOPIRAMATE 50 MG TABS 1 36807 TOPIRAMATE Inactive HYDROCORTISONE 2.5 % EXT CREA Apply three times a day to aff ected area HYDROCORTISONE 2.5 % EXT CREA 376175 HYDROCORTIS ONE Inactive NAPROSYN 375 MG TAB 1 twice a day as needed for chest pain 04/01 NAPROSYN 375 MG TAB NAPROXEN Inactive TOPAMAX 100 MG TABS 1 tablet daily TOPAMAX 100 MG TABS 127723 TOPIRAMATE Inactive ZOVIRAX 400 MG TABS Take 1 tablet every 8 hours as needed ZOVIRAX 400 MG TABS 19720728 ACYCLOVIR Inactive LATUDA 80 MG TABS 1 tablet daily LATUDA 80 MG TA BS LURASIDONE HCL Inactive OMEPRAZOLE 20 MG CPDR 1 tablet by mouth daily OMEPRAZOLE 20 MG CPDR 386513 OMEPRAZOLE Inactive BIOTIN 1000 MCG TABS Take 2 tablets daily BIOTIN 1000 MCG TABS 990422 BIOTIN Inactive [facility] MEL[facility] 3 MG TABS Take 1 tablet at bedtime. 2013 [facility] MEL[facility] 3 MG TABS 660676 MELATONIN Inactive ZOFRAN ODT 4 MG TBDP 1 po q6hr PRN Nausea ZOFRAN ODT 4 MG TBDP 193328 ONDANSETRON Inactive ORTHO TRI-CYCLEN (28) 0.18/0.215/0.25 MG-35 MCG TABS 1 daily ORTHO TRI-CYCLEN (28) 0.18/0.215/0.25 MG-35 MCG TABS 759519 NORGESTIM-ETH ESTRAD TRIPHASIC Inactive CLARITIN 10 MG TAB 1 tablet by mouth daily as needed for itchy r khari CLARITIN 10 MG TAB 981373 LORATADINE Inactive ORTHO TRI-CYCLEN (28) 0.18/0.215/0.25 MG-35 MCG TABS 1 daily ORTHO TRI-CYCLEN (28) 0.18/0.215/0.25 MG-35 MCG TABS 796384 NORGESTIM-ETH ESTRAD TRIPHASIC Inactive HYDROXYZINE HCL 25 MG TABS Take 1-2 tablets daily 2015 HYDROXYZINE HCL 25 MG TABS 818678 HYDROXYZINE HCL Inactive LORATADINE 10 MG TABS 1 tablet by mouth daily LORATADINE 10 MG TABS 639199 LORATADINE Inactive AMOXICILLIN 500 MG CAPS 2 po BID x 10 days AMOXICILLIN 500 MG CAPS 070849 AMOXICILLIN Inactive ZITHROMAX Z-CHACE 250 MG TABS 2 today, then 1 daily for 4 days 201 10/06/11 ZITHROMAX Z-CHACE 250 MG TABS 8629095 AZITHROMYCIN Inac tive AUGMENTIN 875-125 MG TAB 1 po BID x 10 days with food AUGMENTIN 875-125 MG TAB 483553 AMOXICILLIN-POT CLAVULANATE Inactiv e Advance Directives Directive [...] 18 yo)) Fluzone preservative free (>3 yrs.) [[id number]] Influenza, seasonal, injectable, preservative free MPSV4 (meningococcal polysaccharide vaccination) Menactra meningococcal polysaccharide vaccine (MPSV4) hepatitis A immunization #1 Havrix-Pedi hepa titis A vaccine, unspecified formulation Adacel (Tetanus, reduced Diphtheria, and acellular Per tussis Immunization) Adacel [[id number]] tetanus toxoid, reduced diph theria toxoid, and [...] Measured Encounters Code Encounter Date Provider Facility CPT-35503 Level 2 Est. Patient 12:43:40 CDT Ned Navarrete MD [facility] CPT-04609 Level 3 Est. Patient 14:38:48 CDT Toni duque [facility] CPT-54743 Level 3 Est. Patient 09:02:58 FACILITATOR George paulson MD [facility] CPT-54067 Level 3 Est. Patient 17:42:32 CDT Ned Navarrete MD [facility] CPT-44260 Level 3 Est. Patient 11:04:31 FACILITATOR Mariana Torrez APRN [facility] CPT-65506 Level 4 Est. Patient 12:27:05 FACILITATOR Ned Navarrete MD [facility] CPT-18103 Level 3 Est. Patient 11:31:58 FACILITATOR Ned Navarrete MD [facility] CPT-01641 Level 3 Est. Patient 16:49:32 CDT Ned Navarrete MD [facility] CPT-17066 Level 4 Est. Patient 14:11:59 FACILITATOR Saskia green MD PhD [facility]-08609 Level 3 Est. Patient 17:34:25 CDT Ned Navarrete MD [facility] CPT-07766 Level 3 Est. Patient 17:34:19 CDT Ned Navarrete MD [facility] CPT-14310 Level 3 Est. Patient 13:46:05 CDT Ned Navarrete MD [facility] CPT-04618 Level 3 Est. Patient 16:55:47 FACILITATOR Ned Navarrete MD [facility] CPT-20256 Level 2 Est. Patient 17:33:08 FACILITATOR Ned Navarrete MD [facility] CPT-04218 Level 3 Est. Patient 16:25:26 FACILITATOR Ned Navarrete MD [facility] Procedures Code Procedure Name Date Entry Date Standard Desc ription CPT[facility] Med Screen 14:03:18 CDT CPT-[facility] Med Screen 11:04:57 CDT CPT-[facility] Med Screen 10:29:44 CDT CPT-33150 Administration 2+ single or combination vaccines inc oral 14:02:47 FACILITATOR CPT-90432 Administration single or combination vac cine inc oral 14:02:47 FACILITATOR CPT-06119 Hepatitis A ped/adol 2 dose schedule 14:02:47 FACILITATOR CPT-91624 Gardasil 14:02:47 FACILITATOR CPT-01941 Administration single or combination vac cine inc oral 11:40:38 FACILITATOR CPT-85276 Gardasil 11:40:38 FACILITATOR CPT-30755 Administration single or combination vac cine inc oral 09:45:00 CDT CPT-34836 Influenza Preservative Free split virus >age 3 09:45:00 CDT CPT-39236 Venipuncture Draw Fee 07:59:02 CDT
--- OUTSIDE RECORDS SUMMARY | 2019-10-10 20:32 | XMS REPORT | Clinical Summary ---
Author Author Admin, Son Rodriguez [facility] Address Unknown Phone Unavailable Allergies, Adverse [...] 1 herman ly for 3 days PREDNISONE [id number] No Longer Active Ned pérez MD Active CEPHALEXIN 500 MG ORAL CAPS CEPHALEXIN 22498273943 No Longer Active Ned Navarrete MD Active LATUDA 20 MG ORAL TABS LURASIDONE HCL 2372395 0230 Active Breanne Madl [employer]ER [employer] Active LORATADINE 10 MG TABS 1 tablet by mouth daily L ORATADINE 68909807270 No Longer Active Breanne Madl [employer] Active HYDROXYZINE HCL 25 MG TABS Take 1-2 tablets daily 2015 HYDROXYZINE HCL 90474076038 No Longer Active Breanne Madl [employer] Active ORTHO TRI-CYCLEN (28) 0.18/0.215/0.25 MG-35 MCG TABS 1 daily NORGESTIM-ETH ESTRAD TRIPHASIC 20510168487 No Longer Active Breanne Madl [employer] Active CLARITIN 10 MG TAB 1 tablet by mouth daily as needed for itchy r khari LORATADINE 62048953624 No Longer Active Ned Navarrete MD Active AUGMENTIN 875-125 MG TAB 1 po BID x 10 days with food AMOXICILLIN-POT CLAVULANATE 84266744585 No Longer Active Toni Washington DO Active ORTHO TRI-CYCLEN (28) 0.18/0.215/0.25 MG-35 MCG TABS 1 daily NORGESTIM-ETH ESTRAD TRIPHASIC 63028785721 No Longer Active Ned Navarrete MD Active ZOFRAN ODT 4 MG TBDP 1 po q6hr PRN Nausea ONDAN SETRON 54249252719 No Longer Active Ned Navarrete MD Active [facility] MELAT[facility] 3 MG TABS Take 1 tablet at bedtime. 2013 MELATONIN 91621533646 No Longer Active Ned Navarrete MD Activ e BIOTIN 1000 MCG TABS Take 2 tablets daily BIOTI N 17289173630 No Longer Active Ned Navarrete MD Active OMEPRAZOLE 20 MG CPDR 1 tablet by mouth daily O MEPRAZOLE 45566286871 No Longer Active Mariana Moses APRN Active LATUDA 80 MG TABS 1 tablet daily LURASIDONE HCL 32771208847 No Longer Active Mariana Moses APRN Active ZOVIRAX 400 MG TABS Take 1 tablet every 8 hours as needed 2 ACYCLOVIR 00883637604 No Longer Active Ned Navarrete MD Activ e ZITHROMAX Z-CHACE 250 MG TABS 2 today, then 1 daily for 4 days 201 10/06/11 AZITHROMYCIN 17353992473 No Longer Active Ned Navarrete MD Active TOPAMAX 100 MG TABS 1 tablet daily TOPIRAMATE 54 969866552 No Longer Active Ned Navarrete MD Active AMOXICILLIN 500 MG CAPS 2 po BID x 10 days AMOX ICILLIN 65061340484 No Longer Active Sasika Simon MD PhD Active NAPROSYN 375 MG TAB 1 twice a day as needed for chest pain 04/01 NAPROXEN 58008943438 No Longer Active Saskia Simon MD PhD Active HYDROCORTISONE 2.5 % EXT CREA Apply three times a day to aff ected area HYDROCORTISONE 95197346189 No Longer Active Ned Navarrete MD Active TOPIRAMATE 50 MG TABS 1 QD TOPIRAMATE 23713771617 No Longer Active Ned Navarrete MD Active FANAPT 6 MG TABS 1 BID ILOPERIDONE 70323512668 No L onger Active Ned Navarrete MD Active CIPROFLOXACIN HCL 0.3 % SOLN 1 drop in right eye every 2 hours for 2 days, then 1 drop four times a day CIPROFLOXACIN HCL 56806275570 No Longer Active Ned Navarrete MD Active LORATADINE 10 MG TABS 1 tablet by mouth daily L ORATADINE 39060157852 No Longer Active Ned Navarrete MD Active RANITIDINE HCL 150 MG CAPS 1 twice a day RANITI DINE HCL 71879540591 No Longer Active Ned Navarrete MD Active RANITIDINE HCL 150 MG CAPS 1 twice a day RANITIDINE HCL 150 MG CAPS 363765 RANITIDINE HCL Inactive LORATADINE 10 MG TABS 1 tablet by mouth daily LORATADINE 10 MG TABS 766555 LORATADINE Inactive CIPROFLOXACIN HCL 0.3 % SOLN 1 drop in right eye every 2 hours for 2 days, then 1 drop four times a day CIPROFLOXACIN HCL 0.3 % SOLN 274689 CIPROFLOXACIN HCL Inactive FANAPT 6 MG TABS 1 BID FANAPT 6 MG TABS ILO PERIDONE Inactive TOPIRAMATE 50 MG TABS 1 QD TOPIRAMATE 50 MG TABS 1 84600 TOPIRAMATE Inactive HYDROCORTISONE 2.5 % EXT CREA Apply three times a day to aff ected area HYDROCORTISONE 2.5 % EXT CREA 527147 HYDROCORTIS ONE Inactive NAPROSYN 375 MG TAB 1 twice a day as needed for chest pain 04/01 NAPROSYN 375 MG TAB NAPROXEN Inactive TOPAMAX 100 MG TABS 1 tablet daily TOPAMAX 100 MG TABS 905680 TOPIRAMATE Inactive ZOVIRAX 400 MG TABS Take 1 tablet every 8 hours as needed ZOVIRAX 400 MG TABS 19720728 ACYCLOVIR Inactive LATUDA 80 MG TABS 1 tablet daily LATUDA 80 MG TA BS LURASIDONE HCL Inactive OMEPRAZOLE 20 MG CPDR 1 tablet by mouth daily OMEPRAZOLE 20 MG CPDR 948806 OMEPRAZOLE Inactive BIOTIN 1000 MCG TABS Take 2 tablets daily BIOTIN 1000 MCG TABS 060351 BIOTIN Inactive [facility] 3 MG TABS Take 1 tablet at bedtime. 2013 [facility] M[facility] 3 MG TABS 664676 MELATONIN Inactive ZOFRAN ODT 4 MG TBDP 1 po q6hr PRN Nausea ZOFRAN ODT 4 MG TBDP 957009 ONDANSETRON Inactive ORTHO TRI-CYCLEN (28) 0.18/0.215/0.25 MG-35 MCG TABS 1 daily ORTHO TRI-CYCLEN (28) 0.18/0.215/0.25 MG-35 MCG TABS 034645 NORGESTIM-ETH ESTRAD TRIPHASIC Inactive CLARITIN 10 MG TAB 1 tablet by mouth daily as needed for itchy r khari CLARITIN 10 MG TAB 985040 LORATADINE Inactive ORTHO TRI-CYCLEN (28) 0.18/0.215/0.25 MG-35 MCG TABS 1 daily ORTHO TRI-CYCLEN (28) 0.18/0.215/0.25 MG-35 MCG TABS 520146 NORGESTIM-ETH ESTRAD TRIPHASIC Inactive HYDROXYZINE HCL 25 MG TABS Take 1-2 tablets daily 2015 HYDROXYZINE HCL 25 MG TABS 905113 HYDROXYZINE HCL Inactive LORATADINE 10 MG TABS 1 tablet by mouth daily LORATADINE 10 MG TABS 833240 LORATADINE Inactive CEPHALEXIN 500 MG ORAL CAPS CEPHALEX IN 500 MG ORAL CAPS 712002 CEPHALEXIN Inactive PREDNISONE 20 MG TABS Take 2 daily for 3 days and then 1 herman ly for 3 days PREDNISONE 20 MG TABS 689583 PREDNISONE Inacti ve AMOXICILLIN 500 MG CAPS 2 po BID x 10 days AMOXICILLIN 500 MG CAPS 707346 AMOXICILLIN Inactive ZITHROMAX Z-CHACE 250 MG TABS 2 today, then 1 daily for 4 days 201 10/06/11 ZITHROMAX Z-CHACE 250 MG TABS 1414651 AZITHROMYCIN Inac tive AUGMENTIN 875-125 MG TAB 1 po BID x 10 days with food AUGMENTIN 875-125 MG TAB 980821 AMOXICILLIN-POT CLAVULANATE Inactiv e Advance Directives Directive [...] 16 yo)) Fluzone preservative free (>3 yrs.) [[id number]] Influenza, seasonal, injectable, preservative free MPSV4 (meningococcal polysaccharide vaccination) Menactra meningococcal polysaccharide vaccine (MPSV4) hepatitis A immunization #1 Havrix-Pedi hepa titis A vaccine, unspecified formulation Adacel (Tetanus, reduced Diphtheria, and acellular Per tussis Immunization) Adacel [[id number]] tetanus toxoid, reduced diph theria toxoid, and [...] 11 .0-15.0 platelet count 210 THOUSAND/UL 10*3/mm3 070-250 0576/11/02 mean platelet volume 10.3 fL 7.5-11.5 Lab [...] N Encounters Code Encounter Date Provider Facility CPT-44953 Level 3 Est. Patient 15:35:51 REFUELING [employer]PMAN Ned Navarrete MD [facility] CPT-56568 Level 2 Est. Patient 12:43:40 CDT Ned Navarrete MD [facility] CPT-51939 Level 3 Est. Patient 14:38:48 CDT Toni duque DO [facility] CPT-91089 Level 3 Est. Patient 09:02:58 REFUELING RAMPMAN George paulson MD [facility] CPT-68975 Level 3 Est. Patient 17:42:32 CDT Ned Navarrete MD [facility] CPT-66353 Level 3 Est. Patient 11:04:31 REFUELING [employer]AN Mariana Torrez APRN [facility] CPT-73952 Level 4 Est. Patient 12:27:05 REFUELING RAMPMAN Ned Navarrete MD [facility] CPT-41674 Level 3 Est. Patient 11:31:58 REFUELING RAMPMAN Ned Navarrete MD [facility] CPT-72387 Level 3 Est. Patient 16:49:32 CDT Ned Navarrete MD [facility] CPT-02583 Level 4 Est. Patient 14:11:59 REFUELING RAMPMAN Saskia green MD PhD [facility] CPT-18710 Level 3 Est. Patient 17:34:25 CDT Ned Navarrete MD [facility] CPT-19350 Level 3 Est. Patient 17:34:19 CDT Ned Navarrete MD [facility] CPT-86115 Level 3 Est. Patient 13:46:05 CDT Ned Navarrete MD [facility] CPT-01321 Level 3 Est. Patient 16:55:47 REFUELING RAMPMAN Ned Navarrete MD [facility] CPT-40576 Level 2 Est. Patient 17:33:08 REFUELING RAMPMAN Ned Navarrete MD [facility] CPT-04496 Level 3 Est. Patient 16:25:26 REFUELING RAMPMAN Ned Navrarete MD [facility] Procedures Code Procedure Name Date Entry Date Standard Desc ription CPT-70181 Visit 15:07:16 REFUELING RAMPMAN CPT-28383 Visit 16:49:41 REFUELING RAMPMAN CPT-17870 Sono OB limited - XRAY USE ONLY 16:38:01 CS T CPT-46527 Sono OB comp > 14 weeks - XRAY USE ONLY 17:00:59 REFUELING RAMPMAN CPT-69383 UA w micro - LAB USE ONLY 16:59:38 CDT 2015 CPT-51920 TSH - LAB USE ONLY 16:59:38 CDT CPT-13041 Venipuncture Draw Fee 16:59:38 CDT CPT-36346 Spec Collection and Handling Fee 14:01:24 C DT CPT-91640 Visit 14:01:24 CDT CPT-033 ON LICENSE OF [facility] Med Screen 14:03:18 CDT CPT-033 ON LICENSE OF [facility] Med Screen 11:04:57 CDT CPT-033 ON LICENSE OF [facility] Med Screen 10:29:44 CDT CPT-82841 Administration 2+ single or combination vaccines inc oral 14:02:47 REFUELING RAMPMAN CPT-89379 Administration single or combination vac cine inc oral 14:02:47 REFUELING RAMPMAN CPT-56193 Hepatitis A ped/adol 2 dose schedule 14:02:47 REFUELING RAMPMAN CPT-38249 Gardasil 14:02:47 REFUELING RAMPMAN CPT-05730 Administration single or combination vac cine inc oral 11:40:38 REFUELING RAMPMAN CPT-26911 Gardasil 11:40:38 REFUELING RAMPMAN CPT-44055 Administration single or combination vac cine inc oral 09:45:00 CDT CPT-08968 Influenza Preservative Free split virus >age 3 09:45:00 CDT CPT-11187 Venipuncture Draw Fee 07:59:02 CDT
--- OUTSIDE RECORDS SUMMARY | 2019-10-10 20:32 | XMS REPORT | Clinical Summary ---
Author Author Beka, Son Rodriguez [facility] Address Unknown Phone Unavailable Allergies, Adverse [...] TABS 1 daily 2 NORGESTIM-ETH ESTRAD TRIPHASIC 20977932963 Active Tamia Almendarez LPN Active ORTHO TRI-CYCLEN (28) 0.18/0.215/0.25 MG-35 MCG TABS 1 daily NORGESTIM-ETH ESTRAD TRIPHASIC 96378299960 No Longer Active Ned Navarrete MD Active ZOFRAN ODT 4 MG TBDP 1 po q6hr PRN Nausea ONDAN SETRON 95600509055 No Longer Active Ned Navarrete MD Active [facility] MELATONIN 3 MG TABS Take 1 tablet at bedtime. 2013 MELATONIN 17583399033 No Longer Active Ned Navarrete MD Activ e BIOTIN 1000 MCG TABS Take 2 tablets daily BIOTI N 31019101675 No Longer Active Ned Navarrete MD Active OMEPRAZOLE 20 MG CPDR 1 tablet by mouth daily O MEPRAZOLE 60407969725 No Longer Active Mariana Moses APRN Active LATUDA 80 MG TABS 1 tablet daily LURASIDONE HCL 33852808503 No Longer Active Mariana Moses APRN Active ZOVIRAX 400 MG TABS Take 1 tablet every 8 hours as needed 2 ACYCLOVIR 99863587188 No Longer Active Ned Navarrete MD Activ e ZITHROMAX Z-CHACE 250 MG TABS 2 today, then 1 daily for 4 days 201 10/06/11 AZITHROMYCIN 45426644960 No Longer Active Ned Navarrete MD Active HYDROXYZINE HCL 25 MG TABS Take 1-2 tablets daily HYDROXYZINE HCL 15780586106 Active Ned Navarrete MD Active TOPAMAX 100 MG TABS 1 tablet daily TOPIRAMATE 54 039961215 No Longer Active Ned Navarrete MD Active AMOXICILLIN 500 MG CAPS 2 po BID x 10 days AMOX ICILLIN 79816749848 No Longer Active Saskia Simon MD PhD Active NAPROSYN 375 MG TAB 1 twice a day as needed for chest pain 04/01 NAPROXEN 38343498219 No Longer Active Saskia Simon MD PhD Active HYDROCORTISONE 2.5 % EXT CREA Apply three times a day to aff ected area HYDROCORTISONE 49676004578 No Longer Active Ned Navarrete MD Active LORATADINE 10 MG TABS 1 tablet by mouth daily L ORATADINE 01573327765 Active Ned Navarrete MD Active TOPIRAMATE 50 MG TABS 1 QD TOPIRAMATE 69719255696 No Longer Active Ned Navarrete MD Active FANAPT 6 MG TABS 1 BID ILOPERIDONE 41956939515 No L onger Active Ned Navarrete MD Active CIPROFLOXACIN HCL 0.3 % SOLN 1 drop in right eye every 2 hours for 2 days, then 1 drop four times a day CIPROFLOXACIN HCL 86498022750 No Longer Active Ned Navarrete MD Active LORATADINE 10 MG TABS 1 tablet by mouth daily L ORATADINE 14991310023 No Longer Active Ned Navarrete MD Active RANITIDINE HCL 150 MG CAPS 1 twice a day RANITI DINE HCL 82905855502 No Longer Active Ned Navarrete MD Active RANITIDINE HCL 150 MG CAPS 1 twice a day RANITIDINE HCL 150 MG CAPS 729370 RANITIDINE HCL Inactive LORATADINE 10 MG TABS 1 tablet by mouth daily LORATADINE 10 MG TABS 652494 LORATADINE Inactive CIPROFLOXACIN HCL 0.3 % SOLN 1 drop in right eye every 2 hours for 2 days, then 1 drop four times a day CIPROFLOXACIN HCL 0.3 % SOLN 991253 CIPROFLOXACIN HCL Inactive FANAPT 6 MG TABS 1 BID FANAPT 6 MG TABS ILO PERIDONE Inactive TOPIRAMATE 50 MG TABS 1 QD TOPIRAMATE 50 MG TABS 1 80305 TOPIRAMATE Inactive HYDROCORTISONE 2.5 % EXT CREA Apply three times a day to aff ected area HYDROCORTISONE 2.5 % EXT CREA 497744 HYDROCORTIS ONE Inactive NAPROSYN 375 MG TAB 1 twice a day as needed for chest pain 04/01 NAPROSYN 375 MG TAB 19790729 NAPROXEN Inactive TOPAMAX 100 MG TABS 1 tablet daily TOPAMAX 100 MG TABS 776837 TOPIRAMATE Inactive ZOVIRAX 400 MG TABS Take 1 tablet every 8 hours as needed 2 ZOVIRAX 400 MG TABS 144014 ACYCLOVIR Inactive LATUDA 80 MG TABS 1 tablet daily LATUDA 80 MG TA BS LURASIDONE HCL Inactive OMEPRAZOLE 20 MG CPDR 1 tablet by mouth daily OMEPRAZOLE 20 MG CPDR 226343 OMEPRAZOLE Inactive BIOTIN 1000 MCG TABS Take 2 tablets daily BIOTIN 1000 MCG TABS 656069 BIOTIN Inactive [facility] MEL[facility]IN 3 MG TABS Take 1 tablet at bedtime. 2013 [facility] MELATONIN 3 MG TABS 540032 MELATONIN Inactive ZOFRAN ODT 4 MG TBDP 1 po q6hr PRN Nausea ZOFRAN ODT 4 MG TBDP 681189 ONDANSETRON Inactive ORTHO TRI-CYCLEN (28) 0.18/0.215/0.25 MG-35 MCG TABS 1 daily ORTHO TRI-CYCLEN (28) 0.18/0.215/0.25 MG-35 MCG TABS 099101 NORGESTIM-ETH ESTRAD TRIPHASIC Inactive AMOXICILLIN 500 MG CAPS 2 po BID x 10 days AMOXICILLIN 500 MG CAPS 144705 AMOXICILLIN Inactive ZITHROMAX Z-CHACE 250 MG TABS 2 today, then 1 daily for 4 days 201 10/06/11 ZITHROMAX Z-CHACE 250 MG TABS 5673303 AZITHROMYCIN Inac tive Advance Directives Directive Description [...] 18 yo)) Fluzone preservative free (>3 yrs.) [[id number]] Influenza, seasonal, injectable, preservative free MPSV4 (meningococcal polysaccharide vaccination) Menactra meningococcal polysaccharide vaccine (MPSV4) hepatitis A immunization #1 Havrix-Pedi hepa titis A vaccine, unspecified formulation Adacel (Tetanus, reduced Diphtheria, and acellular Per tussis Immunization) Adacel [[id number]] tetanus toxoid, reduced diph theria toxoid, and [...] Name Value Unit Range Description Lab Report: [facility] Chemistry human chorionic gonadotropin , urine, qualitative (urine test) Negative Negative Encounters Code Encounter Date Provider Facility CPT-20198 Level 3 Est. Patient 17:42:32 CDT Ned Navarrete MD [facility] CPT-36342 Level 3 Est. Patient 11:04:31 HOME HEALTH PHYSICAL THERAPIST Mariana Torrez APRN [facility] CPT-37535 Level 4 Est. Patient 12:27:05 HOME HEALTH PHYSICAL THERAPIST Ned Navarrete MD [facility] CPT-87178 Level 3 Est. Patient 11:31:58 HOME HEALTH PHYSICAL THERAPIST Ned Navarrete MD [facility] CPT-14646 Level 3 Est. Patient 16:49:32 CDT Nde Navarrete MD [facility] CPT-02733 Level 4 Est. Patient 14:11:59 HOME HEALTH PHYSICAL THERAPIST Saskia green MD PhD [facility] CPT-98904 Level 3 Est. Patient 17:34:25 CDT Ned Navarrete MD [facility] CPT-68034 Level 3 Est. Patient 17:34:19 CDT Ned Navarrete MD [facility] CPT-84192 Level 3 Est. Patient 13:46:05 CDT Ned Navarrete MD [facility] CPT-82105 Level 3 Est. Patient 16:55:47 HOME HEALTH PHYSICAL THERAPIST Ned Navarrete MD [facility] CPT-92138 Level 2 Est. Patient 17:33:08 HOME HEALTH PHYSICAL THERAPIST Ned Navarrete MD [facility] CPT-17975 Level 3 Est. Patient 16:25:26 HOME HEALTH PHYSICAL THERAPIST Ned Navarrete MD [facility] Procedures Code Procedure Name Date Entry Date Standard Desc ription CPT-033 KB Med Screen 10:29:44 CDT CPT-57591 Administration 2+ single or combination vaccines inc oral 14:02:47 HOME HEALTH PHYSICAL THERAPIST CPT-71791 Administration single or combination vac cine inc oral 14:02:47 HOME HEALTH PHYSICAL THERAPIST CPT-66447 Hepatitis A ped/adol 2 dose schedule 14:02:47 HOME HEALTH PHYSICAL THERAPIST CPT-71391 Gardasil 14:02:47 HOME HEALTH PHYSICAL THERAPIST CPT-53672 Administration single or combination vac cine inc oral 11:40:38 HOME HEALTH PHYSICAL THERAPIST CPT-93433 Gardasil 11:40:38 HOME HEALTH PHYSICAL THERAPIST CPT-25805 Administration single or combination vac cine inc oral 09:45:00 CDT CPT-42166 Influenza Preservative Free split virus >age 3 09:45:00 CDT CPT-41514 Venipuncture Draw Fee 07:59:02 CDT
--- OUTSIDE RECORDS SUMMARY | 2019-10-10 20:33 | XMS REPORT | Clinical Summary ---
Author Author Admin, Son Chan Organization [employer] Address Unknown Phone Unavailable Allergies, Adverse Reactions, [...] weeks gestation of V28.9 Inactive 2016 Missy LRT Encounter for unspecified scre ening of [...] SINUSITIS, ACUTE ICD-461.9 Inactive Ned pérez MD Gastroenteritis ICD-558.9 Inactive Ned Prescott MD [...] 1 [address] for 3 days PREDNISONE 50656638666 No Longer Active Ned pérez MD Active CEPHALEXIN 500 MG ORAL CAPS CEPHALEXIN 34667665912 No Longer Active Ned Navarrete MD Active LATUDA 20 MG ORAL TABS LURASIDONE HCL 3541469 0230 Active Breanne Madl CARE NURSE RN Active LORATADINE 10 MG TABS 1 tablet by mouth daily L ORATADINE 07308184668 No Longer Active Breanne Madl CARE NURSE RN Active HYDROXYZINE HCL 25 MG TABS Take 1-2 tablets daily 2015 HYDROXYZINE HCL 65582763336 No Longer Active Breanne Madl CARE NURSE RN Active ORTHO TRI-CYCLEN (28) 0.18/0.215/0.25 MG-35 MCG TABS 1 daily NORGESTIM-ETH ESTRAD TRIPHASIC 05988970254 No Longer Active Breanne Madl CARE NURSE RN Active CLARITIN 10 MG TAB 1 tablet by mouth daily as needed for itchy r khari LORATADINE 80548374673 No Longer Active Ned Navarrete MD Active AUGMENTIN 875-125 MG TAB 1 po BID x 10 days with food AMOXICILLIN-POT CLAVULANATE 44509111300 No Longer Active Toni Washington DO Active ORTHO TRI-CYCLEN (28) 0.18/0.215/0.25 MG-35 MCG TABS 1 daily NORGESTIM-ETH ESTRAD TRIPHASIC 83771346842 No Longer Active Ned Navarrete MD Active ZOFRAN ODT 4 MG TBDP 1 po q6hr PRN Nausea ONDAN SETRON 96076974464 No Longer Active Ned Navarrete MD Active [facility] MELAT[facility]IN 3 MG TABS Take 1 tablet at bedtime. 2013 MELATONIN 19131880599 No Longer Active Ned Navarrete MD Activ e BIOTIN 1000 MCG TABS Take 2 tablets daily BIOTI N 19895723231 No Longer Active Ned Navarrete MD Active OMEPRAZOLE 20 MG CPDR 1 tablet by mouth daily O MEPRAZOLE 92681548665 No Longer Active Mariana Moses APRN Active LATUDA 80 MG TABS 1 tablet daily LURASIDONE HCL 59281356113 No Longer Active Mariana Moses APRN Active ZOVIRAX 400 MG TABS Take 1 tablet every 8 hours as needed 2 ACYCLOVIR 43269536701 No Longer Active Ned Navarrete MD Activ e ZITHROMAX Z-CHACE 250 MG TABS 2 today, then 1 daily for 4 days 201 10/06/11 AZITHROMYCIN 01454866651 No Longer Active Ned Navarrete MD Active TOPAMAX 100 MG TABS 1 tablet daily TOPIRAMATE 54 148150528 No Longer Active Ned Navarrete MD Active AMOXICILLIN 500 MG CAPS 2 po BID x 10 days AMOX ICILLIN 52498856659 No Longer Active Saskia Simon MD PhD Active NAPROSYN 375 MG TAB 1 twice a day as needed for chest pain 04/01 NAPROXEN 79547321047 No Longer Active Saskia Simon MD PhD Active HYDROCORTISONE 2.5 % EXT CREA Apply three times a day to aff ected area HYDROCORTISONE 45158391452 No Longer Active Ned Navarrete MD Active TOPIRAMATE 50 MG TABS 1 QD TOPIRAMATE 56116147454 No Longer Active Ned Navarrete MD Active FANAPT 6 MG TABS 1 BID ILOPERIDONE 49349472248 No L onger Active Ned Navarrete MD Active CIPROFLOXACIN HCL 0.3 % SOLN 1 drop in right eye every 2 hours for 2 days, then 1 drop four times a day CIPROFLOXACIN HCL 26604236503 No Longer Active Ned Navarrete MD Active LORATADINE 10 MG TABS 1 tablet by mouth daily L ORATADINE 90740341486 No Longer Active Ned Navarrete MD Active RANITIDINE HCL 150 MG CAPS 1 twice a day RANITI DINE HCL 12746403845 No Longer Active Ned Navarrete MD Active RANITIDINE HCL 150 MG CAPS 1 twice a day RANITIDINE HCL 150 MG CAPS 186159 RANITIDINE HCL Inactive LORATADINE 10 MG TABS 1 tablet by mouth daily LORATADINE 10 MG TABS 985245 LORATADINE Inactive CIPROFLOXACIN HCL 0.3 % SOLN 1 drop in right eye every 2 hours for 2 days, then 1 drop four times a day CIPROFLOXACIN HCL 0.3 % SOLN 025783 CIPROFLOXACIN HCL Inactive FANAPT 6 MG TABS 1 BID FANAPT 6 MG TABS ILO PERIDONE Inactive TOPIRAMATE 50 MG TABS 1 QD TOPIRAMATE 50 MG TABS 1 78382 TOPIRAMATE Inactive HYDROCORTISONE 2.5 % EXT CREA Apply three times a day to aff ected area HYDROCORTISONE 2.5 % EXT CREA 905770 HYDROCORTIS ONE Inactive NAPROSYN 375 MG TAB 1 twice a day as needed for chest pain 04/01 NAPROSYN 375 MG TAB NAPROXEN Inactive TOPAMAX 100 MG TABS 1 tablet daily TOPAMAX 100 MG TABS 576959 TOPIRAMATE Inactive ZOVIRAX 400 MG TABS Take 1 tablet every 8 hours as needed 2 ZOVIRAX 400 MG TABS 253007 ACYCLOVIR Inactive LATUDA 80 MG TABS 1 tablet daily LATUDA 80 MG TA BS LURASIDONE HCL Inactive OMEPRAZOLE 20 MG CPDR 1 tablet by mouth daily OMEPRAZOLE 20 MG CPDR 479618 OMEPRAZOLE Inactive BIOTIN 1000 MCG TABS Take 2 tablets daily BIOTIN 1000 MCG TABS 803097 BIOTIN Inactive [facility] MEL[facility]IN 3 MG TABS Take 1 tablet at bedtime. 2013 [facility] MELAT[facility]IN 3 MG TABS 995711 MELATONIN Inactive ZOFRAN ODT 4 MG TBDP 1 po q6hr PRN Nausea ZOFRAN ODT 4 MG TBDP 147044 ONDANSETRON Inactive ORTHO TRI-CYCLEN (28) 0.18/0.215/0.25 MG-35 MCG TABS 1 daily ORTHO TRI-CYCLEN (28) 0.18/0.215/0.25 MG-35 MCG TABS 457127 NORGESTIM-ETH ESTRAD TRIPHASIC Inactive CLARITIN 10 MG TAB 1 tablet by mouth daily as needed for itchy r khari CLARITIN 10 MG TAB 477060 LORATADINE Inactive ORTHO TRI-CYCLEN (28) 0.18/0.215/0.25 MG-35 MCG TABS 1 daily ORTHO TRI-CYCLEN (28) 0.18/0.215/0.25 MG-35 MCG TABS 911638 NORGESTIM-ETH ESTRAD TRIPHASIC Inactive HYDROXYZINE HCL 25 MG TABS Take 1-2 tablets daily 2015 HYDROXYZINE HCL 25 MG TABS 419512 HYDROXYZINE HCL Inactive LORATADINE 10 MG TABS 1 tablet by mouth daily LORATADINE 10 MG TABS 754700 LORATADINE Inactive CEPHALEXIN 500 MG ORAL CAPS CEPHALEX IN 500 MG ORAL CAPS 803114 CEPHALEXIN Inactive PREDNISONE 20 MG TABS Take 2 daily for 3 days and then 1 herman ly for 3 days PREDNISONE 20 MG TABS 202821 PREDNISONE Inacti ve AMOXICILLIN 500 MG CAPS 2 po BID x 10 days AMOXICILLIN 500 MG CAPS 468301 AMOXICILLIN Inactive ZITHROMAX Z-CHACE 250 MG TABS 2 today, then 1 daily for 4 days 201 10/06/11 ZITHROMAX Z-CHACE 250 MG TABS 5177346 AZITHROMYCIN Inac tive AUGMENTIN 875-125 MG TAB 1 po BID x 10 days with food AUGMENTIN 875-125 MG TAB 438624 AMOXICILLIN-POT CLAVULANATE Inactiv e Advance Directives Directive [...] 18 yo)) Fluzone preservative free (>3 yrs.) [[id number]] Influenza, seasonal, injectable, preservative free MPSV4 (meningococcal polysaccharide vaccination) Menactra meningococcal polysaccharide vaccine (MPSV4) hepatitis A immunization #1 Havrix-Pedi hepa titis A vaccine, unspecified formulation Adacel (Tetanus, reduced Diphtheria, and acellular Per tussis Immunization) Adacel [[id number]] tetanus toxoid, reduced diph theria toxoid, and [...] 11 .0-15.0 platelet count 210 THOUSAND/UL 10*3/mm3 427-215 0436/11/02 mean platelet volume 10.3 fL 7.5-11.5 Lab [...] N Encounters Code Encounter Date Provider Facility CPT-91815 Level 3 Est. Patient 15:21:38 OLIVIA Pepper [facility] CPT-51478 Level 3 Est. Patient 15:35:51 ADMITTING COORDINATOR Ned Navarrete MD [facility]-36908 Level 2 Est. Patient 12:43:40 CDT Ned Navarrete MD [facility]-45767 Level 3 Est. Patient 14:38:48 CDT Toni duque DO [facility] CPT-12216 Level 3 Est. Patient 09:02:58 ADMITTING COORDINATOR George paulson MD [facility] CPT-92771 Level 3 Est. Patient 17:42:32 CDT Ned Navarrete MD [facility]-30406 Level 3 Est. Patient 11:04:31 ADMITTING COORDINATOR Mariana Torrez [facility] CPT-58296 Level 4 Est. Patient 12:27:05 ADMITTING COORDINATOR Ned Navarrete MD [facility]-00387 Level 3 Est. Patient 11:31:58 ADMITTING COORDINATOR Ned Navarrete MD [facility] CPT-50638 Level 3 Est. Patient 16:49:32 CDT Ned Navarrete MD [facility]-37493 Level 4 Est. Patient 14:11:59 ADMITTING COORDINATOR Saskia green MD PhD [facility] CPT-56919 Level 3 Est. Patient 17:34:25 CDT Ned Navarrete MD [facility] CPT-98323 Level 3 Est. Patient 17:34:19 CDT Ned Navarrete MD [facility] CPT-54970 Level 3 Est. Patient 13:46:05 CDT Ned Navarrete MD [facility]-22731 Level 3 Est. Patient 16:55:47 ADMITTING COORDINATOR Ned Navarrete MD [facility]-16624 Level 2 Est. Patient 17:33:08 ADMITTING COORDINATOR Ned Navarrete MD [facility]-16118 Level 3 Est. Patient 16:25:26 ADMITTING COORDINATOR Ned Navarrete MD [facility] Procedures Code Procedure Name Date Entry Date Standard Desc ription CPT-15972 Visit 14:52:59 CDT CPT-16380 Visit 15:17:20 CDT CPT-72276 Visit 15:57:29 CDT CPT-91746 First Vx - Ix admin via ID I M or jet injects without counseling by physician 15:53:15 CDT CPT-11872 Boostrix Intramuscular Suspension 5-2.5-18.5 201 01/28/11 15:53:14 CDT CPT-34275 Tdap 7yrs or > 14:41:06 CDT CPT-39563 Visit 17:47:08 CDT CPT-38955 OBGTT 1 - LAB USE ONLY 10:15:57 CDT CPT-19020 Venipuncture Draw Fee 10:15:57 CDT CPT-98395 Visit 15:07:16 ADMITTING COORDINATOR CPT-66312 Visit 16:49:41 ADMITTING COORDINATOR CPT-66618 Sono OB limited - XRAY USE ONLY 16:38:01 CS T CPT-49983 Sono OB comp > 14 weeks - XRAY USE ONLY 17:00:59 ADMITTING COORDINATOR CPT-53008 UA w micro - LAB USE ONLY 16:59:38 CDT 2015 CPT-28635 TSH - LAB USE ONLY 16:59:38 CDT CPT-52497 Venipuncture Draw Fee 16:59:38 CDT CPT-69493 Spec Collection and Handling Fee 14:01:24 C DT CPT-54554 Visit 14:01:24 CDT CPT-033 [facility] Med Screen 14:03:18 CDT CPT-033 [facility] Med Screen 11:04:57 CDT CPT-033 [facility] Med Screen 10:29:44 CDT CPT-72169 Administration 2+ single or combination vaccines inc oral 14:02:47 ADMITTING COORDINATOR CPT-55168 Administration single or combination vac cine inc oral 14:02:47 ADMITTING COORDINATOR CPT-63113 Hepatitis A ped/adol 2 dose schedule 14:02:47 ADMITTING COORDINATOR CPT-37993 Gardasil 14:02:47 ADMITTING COORDINATOR CPT-39222 Administration single or combination vac cine inc oral 11:40:38 ADMITTING COORDINATOR CPT-67524 Gardasil 11:40:38 ADMITTING COORDINATOR CPT-77129 Administration single or combination vac cine inc oral 09:45:00 CDT CPT-02403 Influenza Preservative Free split virus >age 3 09:45:00 CDT CPT-80627 Venipuncture Draw Fee 07:59:02 CDT
--- OUTSIDE RECORDS SUMMARY | 2019-10-10 20:33 | XMS REPORT | Clinical Summary ---
Author Author Admin, Son Chan Organization [employer] Address Unknown Phone Unavailable Allergies, Adverse Reactions, [...] LATUDA 20 MG ORAL TABS LURASIDONE HCL 6877410 0230 Active Breanne Madl RETIREMENT OFFICER Active CEPHALEXIN 500 MG ORAL CAPS CEPHALEXIN 328156 87220 Active Breanne Madl RETIREMENT OFFICER Active LORATADINE 10 MG TABS 1 tablet by mouth daily L ORATADINE 02879978562 No Longer Active Breanne Madl RETIREMENT OFFICER Active HYDROXYZINE HCL 25 MG TABS Take 1-2 tablets daily 2015 HYDROXYZINE HCL 10027528959 No Longer Active Breanne Madl RETIREMENT OFFICER Active ORTHO TRI-CYCLEN (28) 0.18/0.215/0.25 MG-35 MCG TABS 1 daily NORGESTIM-ETH ESTRAD TRIPHASIC 39590023600 No Longer Active Breanne Madl RETIREMENT OFFICER Active CLARITIN 10 MG TAB 1 tablet by mouth daily as needed for itchy r khari LORATADINE 69856168367 No Longer Active Ned Navarrete MD Active AUGMENTIN 875-125 MG TAB 1 po BID x 10 days with food AMOXICILLIN-POT CLAVULANATE 54872122346 No Longer Active Toni Washington DO Active ORTHO TRI-CYCLEN (28) 0.18/0.215/0.25 MG-35 MCG TABS 1 daily NORGESTIM-ETH ESTRAD TRIPHASIC 65140510686 No Longer Active Ned Navarrete MD Active ZOFRAN ODT 4 MG TBDP 1 po q6hr PRN Nausea ONDAN SETRON 90192158929 No Longer Active Ned Navarrete MD Active [facility] 3 MG TABS Take 1 tablet at bedtime. 2013 MELATONIN 11171691592 No Longer Active Ned Navarrete MD Activ e BIOTIN 1000 MCG TABS Take 2 tablets daily BIOTI N 21271683959 No Longer Active Ned Navarrete MD Active OMEPRAZOLE 20 MG CPDR 1 tablet by mouth daily O MEPRAZOLE 78729540641 No Longer Active Mariana Moses APRN Active LATUDA 80 MG TABS 1 tablet daily LURASIDONE HCL 22126339111 No Longer Active Mariana Moses APRN Active ZOVIRAX 400 MG TABS Take 1 tablet every 8 hours as needed 2 ACYCLOVIR 91026652577 No Longer Active Ned Navarrete MD Activ e ZITHROMAX Z-CHACE 250 MG TABS 2 today, then 1 daily for 4 days 201 10/06/11 AZITHROMYCIN 14710373704 No Longer Active Ned Navarrete MD Active TOPAMAX 100 MG TABS 1 tablet daily TOPIRAMATE 54 934482037 No Longer Active Ned Navarrete MD Active AMOXICILLIN 500 MG CAPS 2 po BID x 10 days AMOX ICILLIN 43286409616 No Longer Active Saskia Simon MD PhD Active NAPROSYN 375 MG TAB 1 twice a day as needed for chest pain 04/01 NAPROXEN 43899569322 No Longer Active Saskia Simon MD PhD Active HYDROCORTISONE 2.5 % EXT CREA Apply three times a day to aff ected area HYDROCORTISONE 26447618920 No Longer Active Ned Navarrete MD Active TOPIRAMATE 50 MG TABS 1 QD TOPIRAMATE 61137055221 No Longer Active Ned Navarrete MD Active FANAPT 6 MG TABS 1 BID ILOPERIDONE 54829565888 No L onger Active Ned Navarrete MD Active CIPROFLOXACIN HCL 0.3 % SOLN 1 drop in right eye every 2 hours for 2 days, then 1 drop four times a day CIPROFLOXACIN HCL 73021348950 No Longer Active Ned Navarrete MD Active LORATADINE 10 MG TABS 1 tablet by mouth daily L ORATADINE 49065887123 No Longer Active Ned Navarrete MD Active RANITIDINE HCL 150 MG CAPS 1 twice a day RANITI DINE HCL 44558118874 No Longer Active Ned Navarrete MD Active RANITIDINE HCL 150 MG CAPS 1 twice a day RANITIDINE HCL 150 MG CAPS 944735 RANITIDINE HCL Inactive LORATADINE 10 MG TABS 1 tablet by mouth daily LORATADINE 10 MG TABS 011139 LORATADINE Inactive CIPROFLOXACIN HCL 0.3 % SOLN 1 drop in right eye every 2 hours for 2 days, then 1 drop four times a day CIPROFLOXACIN HCL 0.3 % SOLN 049431 CIPROFLOXACIN HCL Inactive FANAPT 6 MG TABS 1 BID FANAPT 6 MG TABS ILO PERIDONE Inactive TOPIRAMATE 50 MG TABS 1 QD TOPIRAMATE 50 MG TABS 1 51099 TOPIRAMATE Inactive HYDROCORTISONE 2.5 % EXT CREA Apply three times a day to aff ected area HYDROCORTISONE 2.5 % EXT CREA 335500 HYDROCORTIS ONE Inactive NAPROSYN 375 MG TAB 1 twice a day as needed for chest pain 04/01 NAPROSYN 375 MG TAB NAPROXEN Inactive TOPAMAX 100 MG TABS 1 tablet daily TOPAMAX 100 MG TABS 604067 TOPIRAMATE Inactive ZOVIRAX 400 MG TABS Take 1 tablet every 8 hours as needed ZOVIRAX 400 MG TABS 350614 ACYCLOVIR Inactive LATUDA 80 MG TABS 1 tablet daily LATUDA 80 MG TA BS LURASIDONE HCL Inactive OMEPRAZOLE 20 MG CPDR 1 tablet by mouth daily OMEPRAZOLE 20 MG CPDR 440913 OMEPRAZOLE Inactive BIOTIN 1000 MCG TABS Take 2 tablets daily BIOTIN 1000 MCG TABS 956925 BIOTIN Inactive [facility] 3 MG TABS Take 1 tablet at bedtime. 2013 [facility] M[facility] 3 MG TABS 649675 MELATONIN Inactive ZOFRAN ODT 4 MG TBDP 1 po q6hr PRN Nausea ZOFRAN ODT 4 MG TBDP 480819 ONDANSETRON Inactive ORTHO TRI-CYCLEN (28) 0.18/0.215/0.25 MG-35 MCG TABS 1 daily ORTHO TRI-CYCLEN (28) 0.18/0.215/0.25 MG-35 MCG TABS 890253 NORGESTIM-ETH ESTRAD TRIPHASIC Inactive CLARITIN 10 MG TAB 1 tablet by mouth daily as needed for itchy r khari CLARITIN 10 MG TAB 642742 LORATADINE Inactive ORTHO TRI-CYCLEN (28) 0.18/0.215/0.25 MG-35 MCG TABS 1 daily ORTHO TRI-CYCLEN (28) 0.18/0.215/0.25 MG-35 MCG TABS 516066 NORGESTIM-ETH ESTRAD TRIPHASIC Inactive HYDROXYZINE HCL 25 MG TABS Take 1-2 tablets daily 2015 HYDROXYZINE HCL 25 MG TABS 781200 HYDROXYZINE HCL Inactive LORATADINE 10 MG TABS 1 tablet by mouth daily LORATADINE 10 MG TABS 066774 LORATADINE Inactive AMOXICILLIN 500 MG CAPS 2 po BID x 10 days AMOXICILLIN 500 MG CAPS 886761 AMOXICILLIN Inactive ZITHROMAX Z-CHACE 250 MG TABS 2 today, then 1 daily for 4 days 201 10/06/11 ZITHROMAX Z-CHACE 250 MG TABS 9864248 AZITHROMYCIN Inac tive AUGMENTIN 875-125 MG TAB 1 po BID x 10 days with food AUGMENTIN 875-125 MG TAB 206103 AMOXICILLIN-POT CLAVULANATE Inactiv e Advance Directives Directive [...] 18 yo)) Fluzone preservative free (>3 yrs.) [[id number]] Influenza, seasonal, injectable, preservative free MPSV4 (meningococcal polysaccharide vaccination) Menactra meningococcal polysaccharide vaccine (MPSV4) hepatitis A immunization #1 Havrix-Pedi hepa titis A vaccine, unspecified formulation Adacel (Tetanus, reduced Diphtheria, and acellular Per tussis Immunization) Adacel [[id number]] tetanus toxoid, reduced diph theria toxoid, and [...] Name Value Unit Range Description Lab Report: Thyroid Stimulating Hormone (L), UADIP W/MICRO, AUTO - Chemistry TSH 2.68 m[iU]/mL 0.36-3.74 protein, total urine random Negative mg/dL Negative RBC, urine, dipstick Negative Negative Lab Report: Thyroid Stimulating Hormone (L), UADIP W/MICRO, AUTO - Urinalysis urobilinogen, urine, semiquantitative (dipstick) 0.2 Normal leukocyte esterase, urine, by dipstick Negative Negative nitrite, urine, semiquantitative Negative Neg ative glucose, urine, semiquantitative Negative Neg ative ketones, urine, by test strip Negative Negati ve bilirubin, urine Negative Negative urine color Yellow Colorless;Lightyellow;St raw;Yellow appearance, urine Clear Clear specific gravity, urine <=1.005 1.000-1.030 pH, urine, semiquantitative 6.5 5.0-8.5 Encounters Code Encounter Date Provider Facility CPT-08471 Level 2 Est. Patient 12:43:40 CDT Ned Navarrete MD [facility]-58365 Level 3 Est. Patient 14:38:48 CDT Toni duque DO [facility]-52887 Level 3 Est. Patient 09:02:58 PRINTING PLATE SETTER George paulson MD [facility]-75709 Level 3 Est. Patient 17:42:32 CDT Ned Navarrete MD [facility]-99283 Level 3 Est. Patient 11:04:31 PRINTING PLATE SETTER Mariana Torrez APRN [facility]-81016 Level 4 Est. Patient 12:27:05 PRINTING PLATE SETTER Ned Navarrete MD [facility]-10393 Level 3 Est. Patient 11:31:58 PRINTING PLATE SETTER Ned Navarrete MD [facility]-71445 Level 3 Est. Patient 16:49:32 CDT Ned Navarrete MD [facility]-44329 Level 4 Est. Patient 14:11:59 PRINTING PLATE SETTER Saskia green MD PhD [facility]-27326 Level 3 Est. Patient 17:34:25 CDT Ned Navarrete MD [facility]-72918 Level 3 Est. Patient 17:34:19 CDT Ned Navarrete MD [facility]58872 Level 3 Est. Patient 13:46:05 CDT Ned Navarrete MD [facility]-14728 Level 3 Est. Patient 16:55:47 PRINTING PLATE SETTER Ned Navarrete MD [facility] CPT-20031 Level 2 Est. Patient 17:33:08 PRINTING PLATE SETTER Ned Navarrete MD [facility] CPT-57457 Level 3 Est. Patient 16:25:26 PRINTING PLATE SETTER Ned Navarrete MD [facility] Procedures Code Procedure Name Date Entry Date Standard Desc ription CPT-85434 UA w micro - LAB USE ONLY 16:59:38 CDT 2015 CPT-48511 TSH - LAB USE ONLY 16:59:38 CDT CPT-46671 Venipuncture Draw Fee 16:59:38 CDT CPT-09692 Spec Collection and Handling Fee 14:01:24 C DT CPT-93631 Visit 14:01:24 CDT CPT-033 KB Med Screen 14:03:18 CDT CPT-033 KB Med Screen 11:04:57 CDT CPT-033 KB Med Screen 10:29:44 CDT CPT-97420 Administration 2+ single or combination vaccines inc oral 14:02:47 PRINTING PLATE SETTER CPT-81324 Administration single or combination vac cine inc oral 14:02:47 PRINTING PLATE SETTER CPT-14849 Hepatitis A ped/adol 2 dose schedule 14:02:47 PRINTING PLATE SETTER CPT-56897 Gardasil 14:02:47 PRINTING PLATE SETTER CPT-28614 Administration single or combination vac cine inc oral 11:40:38 PRINTING PLATE SETTER CPT-19536 Gardasil 11:40:38 PRINTING PLATE SETTER CPT-70542 Administration single or combination vac cine inc oral 09:45:00 CDT CPT-15190 Influenza Preservative Free split virus >age 3 09:45:00 CDT CPT-82052 Venipuncture Draw Fee 07:59:02 CDT
--- OUTSIDE RECORDS SUMMARY | 2019-10-10 20:33 | XMS REPORT | Clinical Summary ---
Author Author Admin, Son Chan Organization [facility] Address Unknown Phone Unavailable Allergies, [...] LATUDA 20 MG ORAL TABS LURASIDONE HCL 4815488 0230 Active Breanne Madl OUTBOUND SALES PROFESSIONAL Active CEPHALEXIN 500 MG ORAL CAPS CEPHALEXIN 140131 74050 Active Breanne Madl OUTBOUND SALES PROFESSIONAL Active LORATADINE 10 MG TABS 1 tablet by mouth daily L ORATADINE 12148243496 No Longer Active Breanne Madl OUTBOUND SALES PROFESSIONAL Active HYDROXYZINE HCL 25 MG TABS Take 1-2 tablets daily 2015 HYDROXYZINE HCL 39342863468 No Longer Active Breanne Madl OUTBOUND SALES PROFESSIONAL Active ORTHO TRI-CYCLEN (28) 0.18/0.215/0.25 MG-35 MCG TABS 1 daily NORGESTIM-ETH ESTRAD TRIPHASIC 67577627797 No Longer Active Breanne Madl OUTBOUND SALES PROFESSIONAL Active CLARITIN 10 MG TAB 1 tablet by mouth daily as needed for itchy r khari LORATADINE 11600158471 No Longer Active Ned Navarrete MD Active AUGMENTIN 875-125 MG TAB 1 po BID x 10 days with food AMOXICILLIN-POT CLAVULANATE 52892954433 No Longer Active Toni Washington DO Active ORTHO TRI-CYCLEN (28) 0.18/0.215/0.25 MG-35 MCG TABS 1 daily NORGESTIM-ETH ESTRAD TRIPHASIC 37116324527 No Longer Active Ned Navarrete MD Active ZOFRAN ODT 4 MG TBDP 1 po q6hr PRN Nausea ONDAN SETRON 88313475062 No Longer Active Ned Navarrete MD Active [facility] 3 MG TABS Take 1 tablet at bedtime. 2013 MELATONIN 92531437915 No Longer Active Ned Navarrete MD Activ e BIOTIN 1000 MCG TABS Take 2 tablets daily BIOTI N 16092507662 No Longer Active Ned Navarrete MD Active OMEPRAZOLE 20 MG CPDR 1 tablet by mouth daily O MEPRAZOLE 36589508992 No Longer Active Mariana Moses APRN Active LATUDA 80 MG TABS 1 tablet daily LURASIDONE HCL 69872090512 No Longer Active Mariana Moses APRN Active ZOVIRAX 400 MG TABS Take 1 tablet every 8 hours as needed 2 ACYCLOVIR 55619698569 No Longer Active Ned Navarrete MD Activ e ZITHROMAX Z-CHACE 250 MG TABS 2 today, then 1 daily for 4 days 201 10/06/11 AZITHROMYCIN 33945310270 No Longer Active Ned Navarrete MD Active TOPAMAX 100 MG TABS 1 tablet daily TOPIRAMATE 54 411397343 No Longer Active Ned Navarrete MD Active AMOXICILLIN 500 MG CAPS 2 po BID x 10 days AMOX ICILLIN 49265252317 No Longer Active Saskia Simon MD PhD Active NAPROSYN 375 MG TAB 1 twice a day as needed for chest pain 04/01 NAPROXEN 10616824675 No Longer Active Saskia Simon MD PhD Active HYDROCORTISONE 2.5 % EXT CREA Apply three times a day to aff ected area HYDROCORTISONE 90951356092 No Longer Active Ned Navarrete MD Active TOPIRAMATE 50 MG TABS 1 QD TOPIRAMATE 91808586296 No Longer Active Ned Navarrete MD Active FANAPT 6 MG TABS 1 BID ILOPERIDONE 35261426586 No L onger Active Ned Navarrete MD Active CIPROFLOXACIN HCL 0.3 % SOLN 1 drop in right eye every 2 hours for 2 days, then 1 drop four times a day CIPROFLOXACIN HCL 59117166660 No Longer Active Ned Navarrete MD Active LORATADINE 10 MG TABS 1 tablet by mouth daily L ORATADINE 25298810464 No Longer Active Ned Navarrete MD Active RANITIDINE HCL 150 MG CAPS 1 twice a day RANITI DINE HCL 69506289917 No Longer Active Ned Navarrete MD Active RANITIDINE HCL 150 MG CAPS 1 twice a day RANITIDINE HCL 150 MG CAPS 596821 RANITIDINE HCL Inactive LORATADINE 10 MG TABS 1 tablet by mouth daily LORATADINE 10 MG TABS 360701 LORATADINE Inactive CIPROFLOXACIN HCL 0.3 % SOLN 1 drop in right eye every 2 hours for 2 days, then 1 drop four times a day CIPROFLOXACIN HCL 0.3 % SOLN 044655 CIPROFLOXACIN HCL Inactive FANAPT 6 MG TABS 1 BID FANAPT 6 MG TABS ILO PERIDONE Inactive TOPIRAMATE 50 MG TABS 1 QD TOPIRAMATE 50 MG TABS 1 38145 TOPIRAMATE Inactive HYDROCORTISONE 2.5 % EXT CREA Apply three times a day to aff ected area HYDROCORTISONE 2.5 % EXT CREA 803275 HYDROCORTIS ONE Inactive NAPROSYN 375 MG TAB 1 twice a day as needed for chest pain 04/01 NAPROSYN 375 MG TAB NAPROXEN Inactive TOPAMAX 100 MG TABS 1 tablet daily TOPAMAX 100 MG TABS 149381 TOPIRAMATE Inactive ZOVIRAX 400 MG TABS Take 1 tablet every 8 hours as needed ZOVIRAX 400 MG TABS 195987 ACYCLOVIR Inactive LATUDA 80 MG TABS 1 tablet daily LATUDA 80 MG TA BS LURASIDONE HCL Inactive OMEPRAZOLE 20 MG CPDR 1 tablet by mouth daily OMEPRAZOLE 20 MG CPDR 112426 OMEPRAZOLE Inactive BIOTIN 1000 MCG TABS Take 2 tablets daily BIOTIN 1000 MCG TABS 115528 BIOTIN Inactive [facility] 3 MG TABS Take 1 tablet at bedtime. 2013 [facility] 3 MG TABS 063148 MELATONIN Inactive ZOFRAN ODT 4 MG TBDP 1 po q6hr PRN Nausea ZOFRAN ODT 4 MG TBDP 534756 ONDANSETRON Inactive ORTHO TRI-CYCLEN (28) 0.18/0.215/0.25 MG-35 MCG TABS 1 daily ORTHO TRI-CYCLEN (28) 0.18/0.215/0.25 MG-35 MCG TABS 108489 NORGESTIM-ETH ESTRAD TRIPHASIC Inactive CLARITIN 10 MG TAB 1 tablet by mouth daily as needed for itchy r khari CLARITIN 10 MG TAB 110993 LORATADINE Inactive ORTHO TRI-CYCLEN (28) 0.18/0.215/0.25 MG-35 MCG TABS 1 daily ORTHO TRI-CYCLEN (28) 0.18/0.215/0.25 MG-35 MCG TABS 222328 NORGESTIM-ETH ESTRAD TRIPHASIC Inactive HYDROXYZINE HCL 25 MG TABS Take 1-2 tablets daily 2015 HYDROXYZINE HCL 25 MG TABS 059263 HYDROXYZINE HCL Inactive LORATADINE 10 MG TABS 1 tablet by mouth daily LORATADINE 10 MG TABS 090207 LORATADINE Inactive AMOXICILLIN 500 MG CAPS 2 po BID x 10 days AMOXICILLIN 500 MG CAPS 671540 AMOXICILLIN Inactive ZITHROMAX Z-CHACE 250 MG TABS 2 today, then 1 daily for 4 days 201 10/06/11 ZITHROMAX Z-CHACE 250 MG TABS 7343345 AZITHROMYCIN Inac tive AUGMENTIN 875-125 MG TAB 1 po BID x 10 days with food AUGMENTIN 875-125 MG TAB 710683 AMOXICILLIN-POT CLAVULANATE Inactiv e Advance Directives Directive [...] 18 yo)) Fluzone preservative free (>3 yrs.) [[id number]] Influenza, seasonal, injectable, preservative free MPSV4 (meningococcal polysaccharide vaccination) Menactra meningococcal polysaccharide vaccine (MPSV4) hepatitis A immunization #1 Havrix-Pedi hepa titis A vaccine, unspecified formulation Adacel (Tetanus, reduced Diphtheria, and acellular Per tussis Immunization) Adacel [[id number]] tetanus toxoid, reduced diph theria toxoid, and [...] 11 .0-15.0 platelet count 210 THOUSAND/UL 10*3/mm3 533-387 5770/11/02 mean platelet volume 10.3 fL 7.5-11.5 Lab [...] ative Encounters Code Encounter Date Provider Facility CPT-21558 Level 2 Est. Patient 12:43:40 CDT Ned Navarrete MD [facility]-52780 Level 3 Est. Patient 14:38:48 CDT Toni duque DO [facility] CPT-82042 Level 3 Est. Patient 09:02:58 ACADEMY DIRECTOR George paulson MD [facility]-07060 Level 3 Est. Patient 17:42:32 CDT Ned Navarrete MD [facility]-19818 Level 3 Est. Patient 11:04:31 ACADEMY DIRECTOR Mariana Torrez APRN [facility] CPT-74274 Level 4 Est. Patient 12:27:05 ACADEMY DIRECTOR Ned Navarrete MD [facility] CPT-96139 Level 3 Est. Patient 11:31:58 ACADEMY DIRECTOR Ned Navarrete MD [facility] CPT-18706 Level 3 Est. Patient 16:49:32 CDT Ned Navarrete MD [facility] CPT-21156 Level 4 Est. Patient 14:11:59 ACADEMY DIRECTOR Saskia green MD PhD [facility] CPT-06693 Level 3 Est. Patient 17:34:25 CDT Ned Navarrete MD [facility]-63257 Level 3 Est. Patient 17:34:19 CDT Ned Navarrete MD [facility]-30210 Level 3 Est. Patient 13:46:05 CDT Ned Navarrete MD [facility]-61162 Level 3 Est. Patient 16:55:47 ACADEMY DIRECTOR Ned Navarrete MD [facility] CPT-81504 Level 2 Est. Patient 17:33:08 ACADEMY DIRECTOR Ned Navarrete MD [facility] CPT-97438 Level 3 Est. Patient 16:25:26 ACADEMY DIRECTOR Ned Navarrete MD [facility] Procedures Code Procedure Name Date Entry Date Standard Desc ription CPT-30080 UA w micro - LAB USE ONLY 16:59:38 CDT 2015 CPT-77075 TSH - LAB USE ONLY 16:59:38 CDT CPT-51971 Venipuncture Draw Fee 16:59:38 CDT CPT-28162 Spec Collection and Handling Fee 14:01:24 C DT CPT-33326 Visit 14:01:24 CDT CPT-033 KB Med Screen 14:03:18 CDT CPT-033 KB Med Screen 11:04:57 CDT CPT-033 KB Med Screen 10:29:44 CDT CPT-11734 Administration 2+ single or combination vaccines inc oral 14:02:47 ACADEMY DIRECTOR CPT-47978 Administration single or combination vac cine inc oral 14:02:47 ACADEMY DIRECTOR CPT-40343 Hepatitis A ped/adol 2 dose schedule 14:02:47 ACADEMY DIRECTOR CPT-34905 Gardasil 14:02:47 ACADEMY DIRECTOR CPT-55363 Administration single or combination vac cine inc oral 11:40:38 ACADEMY DIRECTOR CPT-10527 Gardasil 11:40:38 ACADEMY DIRECTOR CPT-44220 Administration single or combination vac cine inc oral 09:45:00 CDT CPT-38787 Influenza Preservative Free split virus >age 3 09:45:00 CDT CPT-84261 Venipuncture Draw Fee 07:59:02 CDT
--- OUTSIDE RECORDS SUMMARY | 2019-10-10 20:34 | XMS REPORT | Clinical Summary ---
Author Author Admin, Son Chan Organization [employer] Address Unknown Phone Unavailable Allergies, Adverse Reactions, [...] infections of un specified site V22.2 Resolved Ned Navarrete MD state, incidental examination V24.2 Active [...] 1 daily for contraception NORGESTIM-ETH ESTRAD TRIPHASIC 35329023569 Active Ned Navarrete MD Active LATUDA 20 MG ORAL TABS LURASIDONE HCL 72127347374 No Longer Active Ned Navarrete MD Active PREDNISONE 20 MG TABS Take 2 daily for 3 days and then 1 herman ly for 3 days PREDNISONE 88554479181 No Longer Active Ned pérez MD Active CEPHALEXIN 500 MG ORAL CAPS CEPHALEXIN 31222513690 No Longer Active Ned Navarrete MD Active LORATADINE 10 MG TABS 1 tablet by mouth daily L ORATADINE 31899158316 No Longer Active Breanne Madl PATIENT SERVICE ASSOCIATE Active HYDROXYZINE HCL 25 MG TABS Take 1-2 tablets daily 2015 HYDROXYZINE HCL 50703161509 No Longer Active Breanne Madl PATIENT SERVICE ASSOCIATE Active ORTHO TRI-CYCLEN (28) 0.18/0.215/0.25 MG-35 MCG TABS 1 daily NORGESTIM-ETH ESTRAD TRIPHASIC 02753439509 No Longer Active Breanne Madl PATIENT SERVICE ASSOCIATE Active CLARITIN 10 MG TAB 1 tablet by mouth daily as needed for itchy r khari LORATADINE 44434441251 No Longer Active Ned Navarrete MD Active AUGMENTIN 875-125 MG TAB 1 po BID x 10 days with food AMOXICILLIN-POT CLAVULANATE 58676737475 No Longer Active Toni Washington DO Active ORTHO TRI-CYCLEN (28) 0.18/0.215/0.25 MG-35 MCG TABS 1 daily NORGESTIM-ETH ESTRAD TRIPHASIC 98180187645 No Longer Active Ned Navarrete MD Active ZOFRAN ODT 4 MG TBDP 1 po q6hr PRN Nausea ONDAN SETRON 10320176071 No Longer Active Ned Navarrete MD Active [facility] MEL[facility] 3 MG TABS Take 1 tablet at bedtime. 2013 MELATONIN 29532020614 No Longer Active Ned Navarrete MD Activ e BIOTIN 1000 MCG TABS Take 2 tablets daily BIOTI N 18945629700 No Longer Active Ned Navarrete MD Active OMEPRAZOLE 20 MG CPDR 1 tablet by mouth daily O MEPRAZOLE 97095236591 No Longer Active Mariana Moses APRN Active LATUDA 80 MG TABS 1 tablet daily LURASIDONE HCL 49017243429 No Longer Active Mariana Moses APRN Active ZOVIRAX 400 MG TABS Take 1 tablet every 8 hours as needed 2 ACYCLOVIR 74405234657 No Longer Active Ned Navarrete MD Activ e ZITHROMAX Z-CHACE 250 MG TABS 2 today, then 1 daily for 4 days 201 10/06/11 AZITHROMYCIN 46822791877 No Longer Active Ned Navarrete MD Active TOPAMAX 100 MG TABS 1 tablet daily TOPIRAMATE 54 038343873 No Longer Active Ned Navarrete MD Active AMOXICILLIN 500 MG CAPS 2 po BID x 10 days AMOX ICILLIN 31762111061 No Longer Active Saskia Simon MD PhD Active NAPROSYN 375 MG TAB 1 twice a day as needed for chest pain 04/01 NAPROXEN 43624230186 No Longer Active Saskia Simon MD PhD Active HYDROCORTISONE 2.5 % EXT CREA Apply three times a day to aff ected area HYDROCORTISONE 86962224825 No Longer Active Ned Navarrete MD Active TOPIRAMATE 50 MG TABS 1 QD TOPIRAMATE 75710572909 No Longer Active Ned Navarrete MD Active FANAPT 6 MG TABS 1 BID ILOPERIDONE 26657717257 No L onger Active Ned Navarrete MD Active CIPROFLOXACIN HCL 0.3 % SOLN 1 drop in right eye every 2 hours for 2 days, then 1 drop four times a day CIPROFLOXACIN HCL 39807185410 No Longer Active Ned Navarrete MD Active LORATADINE 10 MG TABS 1 tablet by mouth daily L ORATADINE 25261034649 No Longer Active Ned Navarrete MD Active RANITIDINE HCL 150 MG CAPS 1 twice a day RANITI DINE HCL 24065309214 No Longer Active Ned Navarrete MD Active RANITIDINE HCL 150 MG CAPS 1 twice a day RANITIDINE HCL 150 MG CAPS 242334 RANITIDINE HCL Inactive LORATADINE 10 MG TABS 1 tablet by mouth daily LORATADINE 10 MG TABS 417587 LORATADINE Inactive CIPROFLOXACIN HCL 0.3 % SOLN 1 drop in right eye every 2 hours for 2 days, then 1 drop four times a day CIPROFLOXACIN HCL 0.3 % SOLN 321207 CIPROFLOXACIN HCL Inactive FANAPT 6 MG TABS 1 BID FANAPT 6 MG TABS ILO PERIDONE Inactive TOPIRAMATE 50 MG TABS 1 QD TOPIRAMATE 50 MG TABS 1 54570 TOPIRAMATE Inactive HYDROCORTISONE 2.5 % EXT CREA Apply three times a day to aff ected area HYDROCORTISONE 2.5 % EXT CREA 513098 HYDROCORTIS ONE Inactive NAPROSYN 375 MG TAB 1 twice a day as needed for chest pain 04/01 NAPROSYN 375 MG TAB NAPROXEN Inactive TOPAMAX 100 MG TABS 1 tablet daily TOPAMAX 100 MG TABS 174542 TOPIRAMATE Inactive ZOVIRAX 400 MG TABS Take 1 tablet every 8 hours as needed 2 ZOVIRAX 400 MG TABS 875461 ACYCLOVIR Inactive LATUDA 80 MG TABS 1 tablet daily LATUDA 80 MG TA BS LURASIDONE HCL Inactive OMEPRAZOLE 20 MG CPDR 1 tablet by mouth daily OMEPRAZOLE 20 MG CPDR 823728 OMEPRAZOLE Inactive BIOTIN 1000 MCG TABS Take 2 tablets daily BIOTIN 1000 MCG TABS 205140 BIOTIN Inactive [facility] MEL[facility] 3 MG TABS Take 1 tablet at bedtime. 2013 [facility] MEL[facility] 3 MG TABS 021158 MELATONIN Inactive ZOFRAN ODT 4 MG TBDP 1 po q6hr PRN Nausea ZOFRAN ODT 4 MG TBDP 534067 ONDANSETRON Inactive ORTHO TRI-CYCLEN (28) 0.18/0.215/0.25 MG-35 MCG TABS 1 daily ORTHO TRI-CYCLEN (28) 0.18/0.215/0.25 MG-35 MCG TABS 153647 NORGESTIM-ETH ESTRAD TRIPHASIC Inactive CLARITIN 10 MG TAB 1 tablet by mouth daily as needed for itchy r khari CLARITIN 10 MG TAB 464394 LORATADINE Inactive ORTHO TRI-CYCLEN (28) 0.18/0.215/0.25 MG-35 MCG TABS 1 daily ORTHO TRI-CYCLEN (28) 0.18/0.215/0.25 MG-35 MCG TABS 506534 NORGESTIM-ETH ESTRAD TRIPHASIC Inactive HYDROXYZINE HCL 25 MG TABS Take 1-2 tablets daily 2015 HYDROXYZINE HCL 25 MG TABS 430915 HYDROXYZINE HCL Inactive LORATADINE 10 MG TABS 1 tablet by mouth daily LORATADINE 10 MG TABS 185122 LORATADINE Inactive CEPHALEXIN 500 MG ORAL CAPS CEPHALEX IN 500 MG ORAL CAPS 096384 CEPHALEXIN Inactive PREDNISONE 20 MG TABS Take 2 daily for 3 days and then 1 herman ly for 3 days PREDNISONE 20 MG TABS 390274 PREDNISONE Inacti ve LATUDA 20 MG ORAL TABS LATUDA 20 MG OR AL TABS LURASIDONE HCL Inactive AMOXICILLIN 500 MG CAPS 2 po BID x 10 days AMOXICILLIN 500 MG CAPS 983792 AMOXICILLIN Inactive ZITHROMAX Z-CHACE 250 MG TABS 2 today, then 1 daily for 4 days 201 10/06/11 ZITHROMAX Z-CHACE 250 MG TABS 5719760 AZITHROMYCIN Inac tive AUGMENTIN 875-125 MG TAB 1 po BID x 10 days with food AUGMENTIN 875-125 MG TAB 456371 AMOXICILLIN-POT CLAVULANATE Inactiv e Advance Directives Directive [...] 16 yo)) Fluzone preservative free (>3 yrs.) [CDH432] Influenza, seasonal, injectable, preservative free MPSV4 (meningococcal polysaccharide vaccination) Menactra meningococcal polysaccharide vaccine (MPSV4) hepatitis A immunization #1 Havrix-Pedi hepa titis A vaccine, unspecified formulation Adacel (Tetanus, reduced Diphtheria, and acellular Per tussis Immunization) Adacel [[id number]] tetanus toxoid, reduced diph theria toxoid, and [...] 11 .0-15.0 platelet count 210 THOUSAND/UL 10*3/mm3 562-841 5886/11/02 mean platelet volume 10.3 fL 7.5-11.5 Lab [...] N Encounters Code Encounter Date Provider Facility CPT-10259 Level 3 Est. Patient 15:21:38 ASSEMBLER TRIM Rayna Pepper [facility] CPT-13040 Level 3 Est. Patient 15:35:51 ASSEMBLER TRIM Ned Navarrete MD [facility] CPT-42843 Level 2 Est. Patient 12:43:40 CDT Ned Navarrete MD [facility]-81970 Level 3 Est. Patient 14:38:48 CDT Toni duque DO [facility] CPT-92883 Level 3 Est. Patient 09:02:58 ASSEMBLER TRIM George paulson MD [facility] CPT-06284 Level 3 Est. Patient 17:42:32 CDT Ned Navarrete MD [facility] CPT-51953 Level 3 Est. Patient 11:04:31 ASSEMBLER TRIM Mariana Torrez [facility] CPT-96986 Level 4 Est. Patient 12:27:05 ASSEMBLER TRIM Ned Navarrete MD [facility] CPT-54936 Level 3 Est. Patient 11:31:58 ASSEMBLER TRIM Ned Navarrete MD [facility] CPT-28250 Level 3 Est. Patient 16:49:32 CDT Ned Navarrete MD [facility] CPT-31431 Level 4 Est. Patient 14:11:59 ASSEMBLER TRIM Saskia green MD PhD [facility] CPT-73196 Level 3 Est. Patient 17:34:25 CDT Ned Navarrete MD [facility] CPT-76435 Level 3 Est. Patient 17:34:19 CDT Ned Navarrete MD [facility] CPT-18549 Level 3 Est. Patient 13:46:05 CDT Ned Navarrete MD [facility] CPT-82302 Level 3 Est. Patient 16:55:47 ASSEMBLER TRIM Ned Navarrete MD [facility] CPT-25782 Level 2 Est. Patient 17:33:08 ASSEMBLER TRIM Ned Navarrete MD [facility] CPT-70569 Level 3 Est. Patient 16:25:26 ASSEMBLER TRIM Ned Navarrete MD [facility] Procedures Code Procedure Name Date Entry Date Standard Desc ription CPT-23207 No Charge Offi Visit 11:24:44 CDT 1 CPT-42086 Visit 14:52:59 CDT CPT-24570 Visit 15:17:20 CDT CPT-70966 Visit 15:57:29 CDT CPT-40420 First Vx - Ix admin via ID I M or jet injects without counseling by physician 15:53:15 CDT CPT-53452 Boostrix Intramuscular Suspension 5-2.5-18.5 201 01/28/11 15:53:14 CDT CPT-08795 Tdap 7yrs or > 14:41:06 CDT CPT-21618 Visit 17:47:08 CDT CPT-12061 OBGTT 1 - LAB USE ONLY 10:15:57 CDT CPT-10406 Venipuncture Draw Fee 10:15:57 CDT CPT-71788 Visit 15:07:16 ASSEMBLER TRIM CPT-18426 Visit 16:49:41 ASSEMBLER TRIM CPT-03126 Sono OB limited - XRAY USE ONLY 16:38:01 CS T CPT-85631 Sono OB comp > 14 weeks - XRAY USE ONLY 17:00:59 ASSEMBLER TRIM CPT-30784 UA w micro - LAB USE ONLY 16:59:38 CDT 2015 CPT-87022 TSH - LAB USE ONLY 16:59:38 CDT CPT-73978 Venipuncture Draw Fee 16:59:38 CDT CPT-52093 Spec Collection and Handling Fee 14:01:24 C DT CPT-66323 Visit 14:01:24 CDT CPT-033 KB Med Screen 14:03:18 CDT CPT-033 KB Med Screen 11:04:57 CDT CPT-033 KB Med Screen 10:29:44 CDT CPT-87453 Administration 2+ single or combination vaccines inc oral 14:02:47 ASSEMBLER TRIM CPT-32096 Administration single or combination vac cine inc oral 14:02:47 ASSEMBLER TRIM CPT-48649 Hepatitis A ped/adol 2 dose schedule 14:02:47 ASSEMBLER TRIM CPT-51900 Gardasil 14:02:47 ASSEMBLER TRIM CPT-13586 Administration single or combination vac cine inc oral 11:40:38 ASSEMBLER TRIM CPT-46915 Gardasil 11:40:38 ASSEMBLER TRIM CPT-52110 Administration single or combination vac cine inc oral 09:45:00 CDT CPT-57818 Influenza Preservative Free split virus >age 3 09:45:00 CDT CPT-18193 Venipuncture Draw Fee 07:59:02 CDT
--- OUTSIDE RECORDS SUMMARY | 2019-10-10 20:34 | XMS REPORT | Clinical Summary ---
Author Author Admin, Son Chan Organization [employer] Address Unknown Phone Unavailable Allergies, Adverse Reactions, [...] Navarrete MD Absence of menstruation Gastroenteritis Inactive Geroge Frances MD Other and unspecified noninfectious gastroenteritis [...] ALLERGIC ICD-692.9 Inactive Saskia Simon MD PhD VISUAL CHANGES ICD-368.10 Inactive Ned Prescott MD COSTOCHONDRITIS ICD-733.6 Inactive Saskia Simon MD PhD Pharyngitis, acute ICD-462 Inactive Ned Navarrete MD Gastroenteritis ICD-558.9 Inactive Ned Prescott MD Gastroenteritis Inactive George Frances MD Drug use complicating , second trimester ICD-648.33 Inactive Missy Hayes LRT Methamphetamine abuse ICD-305.70 Inactive Andreea Hayes LRT 20 weeks gestation of ICD-V28.9 Inac tialexandra Hayes LRT 22 weeks gestation of ICD-V28.9 Inac tialexandra Hayes LRT CONCUSSION WITH NO LOSS OF CONSCIOUSNESS ICD-850.0 Inactive Ned Navarrete MD SINUSITIS, ACUTE ICD-461.9 Inactive Ned pérez MD Medication List Medication Instructions Start Date Stop Date Generic Name NDC Status Provider Patient Instruction PREDNISONE 20 MG TABS Take 2 daily for 3 days and then 1 herman ly for 3 days PREDNISONE 68971253062 No Longer Active Ned pérez MD Active CEPHALEXIN 500 MG ORAL CAPS CEPHALEXIN 29144027557 No Longer Active Ned Navarrete MD Active LATUDA 20 MG ORAL TABS LURASIDONE HCL 8204138 0230 Active Breanne Madl RELIEF MAP MODELER Active LORATADINE 10 MG TABS 1 tablet by mouth daily L ORATADINE 50132706470 No Longer Active Breanne Madl RELIEF MAP MODELER Active HYDROXYZINE HCL 25 MG TABS Take 1-2 tablets daily 2015 HYDROXYZINE HCL 39990082001 No Longer Active Breanne Madl RELIEF MAP MODELER Active ORTHO TRI-CYCLEN (28) 0.18/0.215/0.25 MG-35 MCG TABS 1 daily NORGESTIM-ETH ESTRAD TRIPHASIC 10432128356 No Longer Active Breanne Madl RELIEF MAP MODELER Active CLARITIN 10 MG TAB 1 tablet by mouth daily as needed for itchy r khari LORATADINE 01111015949 No Longer Active Ned Navarrete MD Active AUGMENTIN 875-125 MG TAB 1 po BID x 10 days with food AMOXICILLIN-POT CLAVULANATE 23674397175 No Longer Active Toni Washington DO Active ORTHO TRI-CYCLEN (28) 0.18/0.215/0.25 MG-35 MCG TABS 1 daily NORGESTIM-ETH ESTRAD TRIPHASIC 37168677959 No Longer Active Ned Navarrete MD Active ZOFRAN ODT 4 MG TBDP 1 po q6hr PRN Nausea ONDAN SETRON 45663444888 No Longer Active Ned Navarrete MD Active [facility] MELAT[facility]IN 3 MG TABS Take 1 tablet at bedtime. 2013 MELATONIN 68428478956 No Longer Active Ned Navarrete MD Activ e BIOTIN 1000 MCG TABS Take 2 tablets daily BIOTI N 58878115772 No Longer Active Ned Navarrete MD Active OMEPRAZOLE 20 MG CPDR 1 tablet by mouth daily O MEPRAZOLE 85544935354 No Longer Active Mariana Moses APRN Active LATUDA 80 MG TABS 1 tablet daily LURASIDONE HCL 50151161147 No Longer Active Mariana Moses APRN Active ZOVIRAX 400 MG TABS Take 1 tablet every 8 hours as needed 2 ACYCLOVIR 82338463894 No Longer Active Ned Navarrete MD Activ e ZITHROMAX Z-CHACE 250 MG TABS 2 today, then 1 daily for 4 days 201 10/06/11 AZITHROMYCIN 15037499144 No Longer Active Ned Navarrete MD Active TOPAMAX 100 MG TABS 1 tablet daily TOPIRAMATE 54 472695186 No Longer Active Ned Navarrete MD Active AMOXICILLIN 500 MG CAPS 2 po BID x 10 days AMOX ICILLIN 29202669338 No Longer Active Saskia Simon MD PhD Active NAPROSYN 375 MG TAB 1 twice a day as needed for chest pain 04/01 NAPROXEN 91332182710 No Longer Active Saskia Simon MD PhD Active HYDROCORTISONE 2.5 % EXT CREA Apply three times a day to aff ected area HYDROCORTISONE 67853651519 No Longer Active Ned Navarrete MD Active TOPIRAMATE 50 MG TABS 1 QD TOPIRAMATE 78976224668 No Longer Active Ned Navarrete MD Active FANAPT 6 MG TABS 1 BID ILOPERIDONE 68388049222 No L onger Active Ned Navarrete MD Active CIPROFLOXACIN HCL 0.3 % SOLN 1 drop in right eye every 2 hours for 2 days, then 1 drop four times a day CIPROFLOXACIN HCL 99413448683 No Longer Active Ned Navarrete MD Active LORATADINE 10 MG TABS 1 tablet by mouth daily L ORATADINE 83704889769 No Longer Active Ned Navarrete MD Active RANITIDINE HCL 150 MG CAPS 1 twice a day RANITI DINE HCL 22243949518 No Longer Active Ned Navarrete MD Active RANITIDINE HCL 150 MG CAPS 1 twice a day RANITIDINE HCL 150 MG CAPS 672661 RANITIDINE HCL Inactive LORATADINE 10 MG TABS 1 tablet by mouth daily LORATADINE 10 MG TABS 714192 LORATADINE Inactive CIPROFLOXACIN HCL 0.3 % SOLN 1 drop in right eye every 2 hours for 2 days, then 1 drop four times a day CIPROFLOXACIN HCL 0.3 % SOLN 384415 CIPROFLOXACIN HCL Inactive FANAPT 6 MG TABS 1 BID FANAPT 6 MG TABS ILO PERIDONE Inactive TOPIRAMATE 50 MG TABS 1 QD TOPIRAMATE 50 MG TABS 1 76029 TOPIRAMATE Inactive HYDROCORTISONE 2.5 % EXT CREA Apply three times a day to aff ected area HYDROCORTISONE 2.5 % EXT CREA 137495 HYDROCORTIS ONE Inactive NAPROSYN 375 MG TAB 1 twice a day as needed for chest pain 04/01 NAPROSYN 375 MG TAB NAPROXEN Inactive TOPAMAX 100 MG TABS 1 tablet daily TOPAMAX 100 MG TABS 447997 TOPIRAMATE Inactive ZOVIRAX 400 MG TABS Take 1 tablet every 8 hours as needed 2 ZOVIRAX 400 MG TABS 685664 ACYCLOVIR Inactive LATUDA 80 MG TABS 1 tablet daily LATUDA 80 MG TA BS LURASIDONE HCL Inactive OMEPRAZOLE 20 MG CPDR 1 tablet by mouth daily OMEPRAZOLE 20 MG CPDR 353126 OMEPRAZOLE Inactive BIOTIN 1000 MCG TABS Take 2 tablets daily BIOTIN 1000 MCG TABS 579933 BIOTIN Inactive [facility] MEL[facility]IN 3 MG TABS Take 1 tablet at bedtime. 2013 [facility] MELATONIN 3 MG TABS 029544 MELATONIN Inactive ZOFRAN ODT 4 MG TBDP 1 po q6hr PRN Nausea ZOFRAN ODT 4 MG TBDP 680150 ONDANSETRON Inactive ORTHO TRI-CYCLEN (28) 0.18/0.215/0.25 MG-35 MCG TABS 1 daily ORTHO TRI-CYCLEN (28) 0.18/0.215/0.25 MG-35 MCG TABS 373151 NORGESTIM-ETH ESTRAD TRIPHASIC Inactive CLARITIN 10 MG TAB 1 tablet by mouth daily as needed for itchy r khari CLARITIN 10 MG TAB 435380 LORATADINE Inactive ORTHO TRI-CYCLEN (28) 0.18/0.215/0.25 MG-35 MCG TABS 1 daily ORTHO TRI-CYCLEN (28) 0.18/0.215/0.25 MG-35 MCG TABS 781225 NORGESTIM-ETH ESTRAD TRIPHASIC Inactive HYDROXYZINE HCL 25 MG TABS Take 1-2 tablets daily 2015 HYDROXYZINE HCL 25 MG TABS 186041 HYDROXYZINE HCL Inactive LORATADINE 10 MG TABS 1 tablet by mouth daily LORATADINE 10 MG TABS 748010 LORATADINE Inactive CEPHALEXIN 500 MG ORAL CAPS CEPHALEX IN 500 MG ORAL CAPS 011564 CEPHALEXIN Inactive PREDNISONE 20 MG TABS Take 2 daily for 3 days and then 1 herman ly for 3 days PREDNISONE 20 MG TABS 186653 PREDNISONE Inacti ve AMOXICILLIN 500 MG CAPS 2 po BID x 10 days AMOXICILLIN 500 MG CAPS 386187 AMOXICILLIN Inactive ZITHROMAX Z-CHACE 250 MG TABS 2 today, then 1 daily for 4 days 201 10/06/11 ZITHROMAX Z-CHACE 250 MG TABS 0123661 AZITHROMYCIN Inac tive AUGMENTIN 875-125 MG TAB 1 po BID x 10 days with food AUGMENTIN 875-125 MG TAB 358489 AMOXICILLIN-POT CLAVULANATE Inactiv e Advance Directives Directive [...] 18 yo)) Fluzone preservative free (>3 yrs.) [[id number]] Influenza, seasonal, injectable, preservative free MPSV4 (meningococcal polysaccharide vaccination) Menactra meningococcal polysaccharide vaccine (MPSV4) hepatitis A immunization #1 Havrix-Pedi hepa titis A vaccine, unspecified formulation Adacel (Tetanus, reduced Diphtheria, and acellular Per tussis Immunization) Adacel [[id number]] tetanus toxoid, reduced diph theria toxoid, and [...] 11 .0-15.0 platelet count 210 THOUSAND/UL 10*3/mm3 684-653 1283/11/02 mean platelet volume 10.3 fL 7.5-11.5 Lab [...] N Encounters Code Encounter Date Provider Facility CPT-30336 Level 3 Est. Patient 15:21:38 QUALITY ASSURANCE ENGINEER Rayna Pepper APRN [facility] CPT-83703 Level 3 Est. Patient 15:35:51 QUALITY ASSURANCE ENGINEER Ned Navarrete MD [facility] CPT-26188 Level 2 Est. Patient 12:43:40 CDT Ned Navarrete MD [facility] CPT-99104 Level 3 Est. Patient 14:38:48 CDT Toni duque DO [facility] CPT-43884 Level 3 Est. Patient 09:02:58 QUALITY ASSURANCE ENGINEER George paulson MD [facility] CPT-85293 Level 3 Est. Patient 17:42:32 CDT Ned Navarrete MD [facility] CPT-79069 Level 3 Est. Patient 11:04:31 QUALITY ASSURANCE ENGINEER Mariana Torrez APRN [facility] CPT-10439 Level 4 Est. Patient 12:27:05 QUALITY ASSURANCE ENGINEER Ned Navarrete MD [facility] CPT-37325 Level 3 Est. Patient 11:31:58 QUALITY ASSURANCE ENGINEER Ned Navarrete MD [facility] CPT-31428 Level 3 Est. Patient 16:49:32 CDT Ned Navarrete MD [facility] CPT-91477 Level 4 Est. Patient 14:11:59 QUALITY ASSURANCE ENGINEER Saskia green MD PhD [facility] CPT-50122 Level 3 Est. Patient 17:34:25 CDT Ned Navarrete MD [facility] CPT-31749 Level 3 Est. Patient 17:34:19 CDT Ned Navarrete MD [facility] CPT-95586 Level 3 Est. Patient 13:46:05 CDT Ned Navarrete MD [facility] CPT-69946 Level 3 Est. Patient 16:55:47 QUALITY ASSURANCE ENGINEER Ned Navarrete MD [facility] CPT-70028 Level 2 Est. Patient 17:33:08 QUALITY ASSURANCE ENGINEER Ned Navarrete MD [facility] CPT-34115 Level 3 Est. Patient 16:25:26 QUALITY ASSURANCE ENGINEER Ned Navarrete MD [facility] Procedures Code Procedure Name Date Entry Date Standard Desc ription CPT-26044 Visit 15:17:20 CDT CPT-68308 Visit 15:57:29 CDT CPT-87693 First Vx - Ix admin via ID I M or jet injects without counseling by physician 15:53:15 CDT CPT-35330 Boostrix Intramuscular Suspension 5-2.5-18.5 201 01/28/11 15:53:14 CDT CPT-49773 Tdap 7yrs or > 14:41:06 CDT CPT-98703 Visit 17:47:08 CDT CPT-61828 OBGTT 1 - LAB USE ONLY 10:15:57 CDT CPT-19645 Venipuncture Draw Fee 10:15:57 CDT CPT-25595 Visit 15:07:16 QUALITY ASSURANCE ENGINEER CPT-37250 Visit 16:49:41 QUALITY ASSURANCE ENGINEER CPT-69693 Sono OB limited - XRAY USE ONLY 16:38:01 CS T CPT-87285 [facility] OB comp > 14 weeks - XRAY USE ONLY 17:00:59 QUALITY ASSURANCE ENGINEER CPT-39896 UA w micro - LAB USE ONLY 16:59:38 CDT 2015 CPT-16878 TSH - LAB USE ONLY 16:59:38 CDT CPT-15983 Venipuncture Draw Fee 16:59:38 CDT CPT-56807 Spec Collection and Handling Fee 14:01:24 C DT CPT-03767 Visit 14:01:24 CDT CPT-033 KB Med Screen 14:03:18 CDT CPT-033 [facility] Med Screen 11:04:57 CDT CPT-033 KB Med Screen 10:29:44 CDT CPT-93924 Administration 2+ single or combination vaccines inc oral 14:02:47 QUALITY ASSURANCE ENGINEER CPT-35570 Administration single or combination vac cine inc oral 14:02:47 QUALITY ASSURANCE ENGINEER CPT-79577 Hepatitis A ped/adol 2 dose schedule 14:02:47 QUALITY ASSURANCE ENGINEER CPT-32568 Gardasil 14:02:47 QUALITY ASSURANCE ENGINEER CPT-99704 Administration single or combination vac cine inc oral 11:40:38 QUALITY ASSURANCE ENGINEER CPT-40116 Gardasil 11:40:38 QUALITY ASSURANCE ENGINEER CPT-88532 Administration single or combination vac cine inc oral 09:45:00 CDT CPT-62607 Influenza Preservative Free split virus >age 3 09:45:00 CDT CPT-01428 Venipuncture Draw Fee 07:59:02 CDT
--- OUTSIDE RECORDS SUMMARY | 2019-10-10 20:34 | XMS REPORT | Clinical Summary ---
Author Author Admin, Son Chan Organization [employer] Address Unknown Phone Unavailable Allergies, Adverse Reactions, [...] 1 tablet by mouth daily L ORATADINE [id number] No Longer Active Breanne Madl MERCHANDISING TEAM LEAD Active HYDROXYZINE HCL 25 MG TABS Take 1-2 tablets daily 2015 HYDROXYZINE HCL 78984621150 No Longer Active Breanne Madl MERCHANDISING TEAM LEAD Active ORTHO TRI-CYCLEN (28) 0.18/0.215/0.25 MG-35 MCG TABS 1 daily NORGESTIM-ETH ESTRAD TRIPHASIC 34804308111 No Longer Active Breanne Madl MERCHANDISING TEAM LEAD Active CLARITIN 10 MG TAB 1 tablet by mouth daily as needed for itchy r khari LORATADINE 43539472045 No Longer Active Ned Navarrete MD Active AUGMENTIN 875-125 MG TAB 1 po BID x 10 days with food AMOXICILLIN-POT CLAVULANATE 21359644143 No Longer Active Toni Washington DO Active ORTHO TRI-CYCLEN (28) 0.18/0.215/0.25 MG-35 MCG TABS 1 daily NORGESTIM-ETH ESTRAD TRIPHASIC 23598295190 No Longer Active Ned Navarrete MD Active ZOFRAN ODT 4 MG TBDP 1 po q6hr PRN Nausea ONDAN SETRON 32889697023 No Longer Active Ned Navarrete MD Active [facility] MEL[facility] 3 MG TABS Take 1 tablet at bedtime. 2013 MELATONIN 40523616622 No Longer Active Ned Navarrete MD Activ e BIOTIN 1000 MCG TABS Take 2 tablets daily BIOTI N 94988441341 No Longer Active Ned Navarrete MD Active OMEPRAZOLE 20 MG CPDR 1 tablet by mouth daily O MEPRAZOLE 25729621724 No Longer Active Mariana Moses APRN Active LATUDA 80 MG TABS 1 tablet daily LURASIDONE HCL 16641710460 No Longer Active Mariana Moses APRN Active ZOVIRAX 400 MG TABS Take 1 tablet every 8 hours as needed 2 ACYCLOVIR 33400670020 No Longer Active Ned Navarrete MD Activ e ZITHROMAX Z-CHACE 250 MG TABS 2 today, then 1 daily for 4 days 201 10/06/11 AZITHROMYCIN 34626871593 No Longer Active Ned Navarrete MD Active TOPAMAX 100 MG TABS 1 tablet daily TOPIRAMATE 54 667498289 No Longer Active Ned Navarrete MD Active AMOXICILLIN 500 MG CAPS 2 po BID x 10 days AMOX ICILLIN 29554949162 No Longer Active Saskia Simon MD PhD Active NAPROSYN 375 MG TAB 1 twice a day as needed for chest pain 04/01 NAPROXEN 48920130292 No Longer Active Saskia Simon MD PhD Active HYDROCORTISONE 2.5 % EXT CREA Apply three times a day to aff ected area HYDROCORTISONE 97222012784 No Longer Active Ned Navarrete MD Active TOPIRAMATE 50 MG TABS 1 QD TOPIRAMATE 64413717131 No Longer Active Ned Navarrete MD Active FANAPT 6 MG TABS 1 BID ILOPERIDONE 82709802471 No L onger Active Ned Navarrete MD Active CIPROFLOXACIN HCL 0.3 % SOLN 1 drop in right eye every 2 hours for 2 days, then 1 drop four times a day CIPROFLOXACIN HCL 41703368266 No Longer Active Ned Navarrete MD Active LORATADINE 10 MG TABS 1 tablet by mouth daily L ORATADINE 21387758308 No Longer Active Ned Navarrete MD Active RANITIDINE HCL 150 MG CAPS 1 twice a day RANITI DINE HCL 29650013557 No Longer Active Ned Navarrete MD Active RANITIDINE HCL 150 MG CAPS 1 twice a day RANITIDINE HCL 150 MG CAPS 934515 RANITIDINE HCL Inactive LORATADINE 10 MG TABS 1 tablet by mouth daily LORATADINE 10 MG TABS 297023 LORATADINE Inactive CIPROFLOXACIN HCL 0.3 % SOLN 1 drop in right eye every 2 hours for 2 days, then 1 drop four times a day CIPROFLOXACIN HCL 0.3 % SOLN 445769 CIPROFLOXACIN HCL Inactive FANAPT 6 MG TABS 1 BID FANAPT 6 MG TABS ILO PERIDONE Inactive TOPIRAMATE 50 MG TABS 1 QD TOPIRAMATE 50 MG TABS 1 60363 TOPIRAMATE Inactive HYDROCORTISONE 2.5 % EXT CREA Apply three times a day to aff ected area HYDROCORTISONE 2.5 % EXT CREA 091731 HYDROCORTIS ONE Inactive NAPROSYN 375 MG TAB 1 twice a day as needed for chest pain 04/01 NAPROSYN 375 MG TAB NAPROXEN Inactive TOPAMAX 100 MG TABS 1 tablet daily TOPAMAX 100 MG TABS 272532 TOPIRAMATE Inactive ZOVIRAX 400 MG TABS Take 1 tablet every 8 hours as needed ZOVIRAX 400 MG TABS 19720728 ACYCLOVIR Inactive LATUDA 80 MG TABS 1 tablet daily LATUDA 80 MG TA BS LURASIDONE HCL Inactive OMEPRAZOLE 20 MG CPDR 1 tablet by mouth daily OMEPRAZOLE 20 MG CPDR 286907 OMEPRAZOLE Inactive BIOTIN 1000 MCG TABS Take 2 tablets daily BIOTIN 1000 MCG TABS 791314 BIOTIN Inactive [facility] MEL[facility] 3 MG TABS Take 1 tablet at bedtime. 2013 [facility] MEL[facility] 3 MG TABS 532996 MELATONIN Inactive ZOFRAN ODT 4 MG TBDP 1 po q6hr PRN Nausea ZOFRAN ODT 4 MG TBDP 471757 ONDANSETRON Inactive ORTHO TRI-CYCLEN (28) 0.18/0.215/0.25 MG-35 MCG TABS 1 daily ORTHO TRI-CYCLEN (28) 0.18/0.215/0.25 MG-35 MCG TABS 471349 NORGESTIM-ETH ESTRAD TRIPHASIC Inactive CLARITIN 10 MG TAB 1 tablet by mouth daily as needed for itchy r khari CLARITIN 10 MG TAB 265234 LORATADINE Inactive ORTHO TRI-CYCLEN (28) 0.18/0.215/0.25 MG-35 MCG TABS 1 daily ORTHO TRI-CYCLEN (28) 0.18/0.215/0.25 MG-35 MCG TABS 551573 NORGESTIM-ETH ESTRAD TRIPHASIC Inactive HYDROXYZINE HCL 25 MG TABS Take 1-2 tablets daily 2015 HYDROXYZINE HCL 25 MG TABS 441773 HYDROXYZINE HCL Inactive LORATADINE 10 MG TABS 1 tablet by mouth daily LORATADINE 10 MG TABS 940886 LORATADINE Inactive AMOXICILLIN 500 MG CAPS 2 po BID x 10 days AMOXICILLIN 500 MG CAPS 357878 AMOXICILLIN Inactive ZITHROMAX Z-CHACE 250 MG TABS 2 today, then 1 daily for 4 days 201 10/06/11 ZITHROMAX Z-CHACE 250 MG TABS 7838781 AZITHROMYCIN Inac tive AUGMENTIN 875-125 MG TAB 1 po BID x 10 days with food AUGMENTIN 875-125 MG TAB 759760 AMOXICILLIN-POT CLAVULANATE Inactiv e Advance Directives Directive [...] 18 yo)) Fluzone preservative free (>3 yrs.) [[id number]] Influenza, seasonal, injectable, preservative free MPSV4 (meningococcal polysaccharide vaccination) Menactra meningococcal polysaccharide vaccine (MPSV4) hepatitis A immunization #1 Havrix-Pedi hepa titis A vaccine, unspecified formulation Adacel (Tetanus, reduced Diphtheria, and acellular Per tussis Immunization) Adacel [[id number]] tetanus toxoid, reduced diph theria toxoid, and [...] Measured Encounters Code Encounter Date Provider Facility CPT-84875 Level 2 Est. Patient 12:43:40 CDT Ned Navarrete MD [facility] CPT-92860 Level 3 Est. Patient 14:38:48 CDT Toni duque [facility] CPT-21914 Level 3 Est. Patient 09:02:58 ELASTIC ATTACHER COVERSTITCH George paulson MD [facility] CPT-59378 Level 3 Est. Patient 17:42:32 CDT Ned Navarrete MD [facility] CPT-42061 Level 3 Est. Patient 11:04:31 ELASTIC ATTACHER COVERSTITCH Mariana Torrez APRN [facility] CPT-05769 Level 4 Est. Patient 12:27:05 ELASTIC ATTACHER COVERSTITCH Ned Navarrete MD [facility] CPT-76261 Level 3 Est. Patient 11:31:58 ELASTIC ATTACHER COVERSTITCH Ned Navarrete MD [facility] CPT-57181 Level 3 Est. Patient 16:49:32 CDT Ned Navarrete MD [facility] CPT-26394 Level 4 Est. Patient 14:11:59 ELASTIC ATTACHER COVERSTITCH Saskia green MD PhD [facility]-11929 Level 3 Est. Patient 17:34:25 CDT Ned Navarrete MD [facility] CPT-45966 Level 3 Est. Patient 17:34:19 CDT Ned Navarrete MD [facility] CPT-05831 Level 3 Est. Patient 13:46:05 CDT Ned Navarrete MD [facility] CPT-04651 Level 3 Est. Patient 16:55:47 ELASTIC ATTACHER COVERSTITCH Ned Navarrete MD [facility] CPT-11454 Level 2 Est. Patient 17:33:08 ELASTIC ATTACHER COVERSTITCH Ned Navarrete MD [facility] CPT-07660 Level 3 Est. Patient 16:25:26 ELASTIC ATTACHER COVERSTITCH Ned Navarrete MD [facility] Procedures Code Procedure Name Date Entry Date Standard Desc ription CPT-033 [facility] Med Screen 14:03:18 CDT CPT-033 [facility] Med Screen 11:04:57 CDT CPT-033 [facility] Med Screen 10:29:44 CDT CPT-29633 Administration 2+ single or combination vaccines inc oral 14:02:47 ELASTIC ATTACHER COVERSTITCH CPT-59454 Administration single or combination vac cine inc oral 14:02:47 ELASTIC ATTACHER COVERSTITCH CPT-45321 Hepatitis A ped/adol 2 dose schedule 14:02:47 ELASTIC ATTACHER COVERSTITCH CPT-32296 Gardasil 14:02:47 ELASTIC ATTACHER COVERSTITCH CPT-99373 Administration single or combination vac cine inc oral 11:40:38 ELASTIC ATTACHER COVERSTITCH CPT-94582 Gardasil 11:40:38 ELASTIC ATTACHER COVERSTITCH CPT-17850 Administration single or combination vac cine inc oral 09:45:00 CDT CPT-78850 Influenza Preservative Free split virus >age 3 09:45:00 CDT CPT-89978 Venipuncture Draw Fee 07:59:02 CDT
--- OUTSIDE RECORDS SUMMARY | 2019-10-10 20:35 | XMS REPORT | Clinical Summary ---
Author Author Admin, Son Rodriguez [facility] Address Unknown Phone Unavailable Allergies, Adverse [...] Major depressive disorder, single episode, unspecified degree NASOLACRIMAL DUCT OBSTRUCTION, LEFT ICD-375.56 Inactive Ned [...] use complicating , second trimester ICD-648.33 Inactive Missythai Waddellty LRT Methamphetamine abuse ICD-305.70 Inactive Andreea Hayes LRT 20 weeks gestation of ICD-V28.9 Inac tive Missy Waddellty LRT 22 weeks gestation of ICD-V28.9 Inac tive Missy Waddellty LRT Upper respiratory infection ICD-465.9 Inactive Ned Navarrete MD ICD-V22.2 Inactive Ned Navarrete MD VISUAL CHANGES ICD-368.10 Inactive Ned Prescott MD Pharyngitis, acute ICD-462 Inactive Ned Navarrete MD Medication List Medication Instructions Start Date Stop Date Generic Name NDC Status Provider Patient Instruction TRI-SPRINTEC 0.18/0.215/0.25 MG-35 MCG ORAL TABS 1 daily for contraception NORGESTIM-ETH ESTRAD TRIPHASIC 16305579654 Active Ned Navarrete MD Active LATUDA 20 MG ORAL TABS LURASIDONE HCL 74690937627 No Longer Active Ned Navarrete MD Active PREDNISONE 20 MG TABS Take 2 daily for 3 days and then 1 herman ly for 3 days PREDNISONE 04311141352 No Longer Active Ned pérez MD Active CEPHALEXIN 500 MG ORAL CAPS CEPHALEXIN 42567790134 No Longer Active Ned Navarrete MD Active LORATADINE 10 MG TABS 1 tablet by mouth daily L ORATADINE 59489065174 No Longer Active Breanne Madl WARD HELPER Active HYDROXYZINE HCL 25 MG TABS Take 1-2 tablets daily 2015 HYDROXYZINE HCL 21221778980 No Longer Active Breanne Madl WARD HELPER Active ORTHO TRI-CYCLEN (28) 0.18/0.215/0.25 MG-35 MCG TABS 1 daily NORGESTIM-ETH ESTRAD TRIPHASIC 47870057533 No Longer Active Breanne Madl WARD HELPER Active CLARITIN 10 MG TAB 1 tablet by mouth daily as needed for itchy r khari LORATADINE 76287745245 No Longer Active Ned Navarrete MD Active AUGMENTIN 875-125 MG TAB 1 po BID x 10 days with food AMOXICILLIN-POT CLAVULANATE 45682048594 No Longer Active Toni Washington DO Active ORTHO TRI-CYCLEN (28) 0.18/0.215/0.25 MG-35 MCG TABS 1 daily NORGESTIM-ETH ESTRAD TRIPHASIC 35665892918 No Longer Active Ned Navarrete MD Active ZOFRAN ODT 4 MG TBDP 1 po q6hr PRN Nausea ONDAN SETRON 84029893750 No Longer Active Ned Navarrete MD Active [facility] MEL[facility] 3 MG TABS Take 1 tablet at bedtime. 2013 MELATONIN 31131193175 No Longer Active Ned Navarrete MD Activ e BIOTIN 1000 MCG TABS Take 2 tablets daily BIOTI N 22433209756 No Longer Active Ned Navarrete MD Active OMEPRAZOLE 20 MG CPDR 1 tablet by mouth daily O MEPRAZOLE 38005042605 No Longer Active Mariana Moses APRN Active LATUDA 80 MG TABS 1 tablet daily LURASIDONE HCL 43002825613 No Longer Active Mariana Moses APRN Active ZOVIRAX 400 MG TABS Take 1 tablet every 8 hours as needed 2 ACYCLOVIR 47511176727 No Longer Active Ned Navarrete MD Activ e ZITHROMAX Z-CHACE 250 MG TABS 2 today, then 1 daily for 4 days 201 10/06/11 AZITHROMYCIN 50548909480 No Longer Active Ned Navarrete MD Active TOPAMAX 100 MG TABS 1 tablet daily TOPIRAMATE 54 199514499 No Longer Active Ned Navarrete MD Active AMOXICILLIN 500 MG CAPS 2 po BID x 10 days AMOX ICILLIN 25478773440 No Longer Active Saskia Simon MD PhD Active NAPROSYN 375 MG TAB 1 twice a day as needed for chest pain 04/01 NAPROXEN 72693553050 No Longer Active Saskia Simon MD PhD Active HYDROCORTISONE 2.5 % EXT CREA Apply three times a day to aff ected area HYDROCORTISONE 47805551558 No Longer Active Ned Navarrete MD Active TOPIRAMATE 50 MG TABS 1 QD TOPIRAMATE 57757268409 No Longer Active Ned Navarrete MD Active FANAPT 6 MG TABS 1 BID ILOPERIDONE 68060536878 No L onger Active Ned Navarrete MD Active CIPROFLOXACIN HCL 0.3 % SOLN 1 drop in right eye every 2 hours for 2 days, then 1 drop four times a day CIPROFLOXACIN HCL 61595392142 No Longer Active Ned Navarrete MD Active LORATADINE 10 MG TABS 1 tablet by mouth daily L ORATADINE 44674202340 No Longer Active Ned Navarrete MD Active RANITIDINE HCL 150 MG CAPS 1 twice a day RANITI DINE HCL 68323811990 No Longer Active Ned Navarrete MD Active RANITIDINE HCL 150 MG CAPS 1 twice a day RANITIDINE HCL 150 MG CAPS 023797 RANITIDINE HCL Inactive LORATADINE 10 MG TABS 1 tablet by mouth daily LORATADINE 10 MG TABS 901447 LORATADINE Inactive CIPROFLOXACIN HCL 0.3 % SOLN 1 drop in right eye every 2 hours for 2 days, then 1 drop four times a day CIPROFLOXACIN HCL 0.3 % SOLN 683709 CIPROFLOXACIN HCL Inactive FANAPT 6 MG TABS 1 BID FANAPT 6 MG TABS ILO PERIDONE Inactive TOPIRAMATE 50 MG TABS 1 QD TOPIRAMATE 50 MG TABS 1 18587 TOPIRAMATE Inactive HYDROCORTISONE 2.5 % EXT CREA Apply three times a day to aff ected area HYDROCORTISONE 2.5 % EXT CREA 294296 HYDROCORTIS ONE Inactive NAPROSYN 375 MG TAB 1 twice a day as needed for chest pain 04/01 NAPROSYN 375 MG TAB NAPROXEN Inactive TOPAMAX 100 MG TABS 1 tablet daily TOPAMAX 100 MG TABS 479160 TOPIRAMATE Inactive ZOVIRAX 400 MG TABS Take 1 tablet every 8 hours as needed 2 ZOVIRAX 400 MG TABS 734489 ACYCLOVIR Inactive LATUDA 80 MG TABS 1 tablet daily LATUDA 80 MG TA BS LURASIDONE HCL Inactive OMEPRAZOLE 20 MG CPDR 1 tablet by mouth daily OMEPRAZOLE 20 MG CPDR 918578 OMEPRAZOLE Inactive BIOTIN 1000 MCG TABS Take 2 tablets daily BIOTIN 1000 MCG TABS 921059 BIOTIN Inactive [facility] M[facility] 3 MG TABS Take 1 tablet at bedtime. 2013 [facility] M[facility] 3 MG TABS 142050 MELATONIN Inactive ZOFRAN ODT 4 MG TBDP 1 po q6hr PRN Nausea ZOFRAN ODT 4 MG TBDP 613278 ONDANSETRON Inactive ORTHO TRI-CYCLEN (28) 0.18/0.215/0.25 MG-35 MCG TABS 1 daily ORTHO TRI-CYCLEN (28) 0.18/0.215/0.25 MG-35 MCG TABS 449413 NORGESTIM-ETH ESTRAD TRIPHASIC Inactive CLARITIN 10 MG TAB 1 tablet by mouth daily as needed for itchy r khari CLARITIN 10 MG TAB 208149 LORATADINE Inactive ORTHO TRI-CYCLEN (28) 0.18/0.215/0.25 MG-35 MCG TABS 1 daily ORTHO TRI-CYCLEN (28) 0.18/0.215/0.25 MG-35 MCG TABS 042799 NORGESTIM-ETH ESTRAD TRIPHASIC Inactive HYDROXYZINE HCL 25 MG TABS Take 1-2 tablets daily 2015 HYDROXYZINE HCL 25 MG TABS 919238 HYDROXYZINE HCL Inactive LORATADINE 10 MG TABS 1 tablet by mouth daily LORATADINE 10 MG TABS 503992 LORATADINE Inactive CEPHALEXIN 500 MG ORAL CAPS CEPHALEX IN 500 MG ORAL CAPS 686740 CEPHALEXIN Inactive PREDNISONE 20 MG TABS Take 2 daily for 3 days and then 1 herman ly for 3 days PREDNISONE 20 MG TABS 674180 PREDNISONE Inacti ve LATUDA 20 MG ORAL TABS LATUDA 20 MG OR AL TABS LURASIDONE HCL Inactive AMOXICILLIN 500 MG CAPS 2 po BID x 10 days AMOXICILLIN 500 MG CAPS 262496 AMOXICILLIN Inactive ZITHROMAX Z-CHACE 250 MG TABS 2 today, then 1 daily for 4 days 201 10/06/11 ZITHROMAX Z-CHACE 250 MG TABS 0208110 AZITHROMYCIN Inac tive AUGMENTIN 875-125 MG TAB 1 po BID x 10 days with food AUGMENTIN 875-125 MG TAB 685096 AMOXICILLIN-POT CLAVULANATE Inactiv e Advance Directives Directive [...] 18 yo)) Fluzone preservative free (>3 yrs.) [[id number]] Influenza, seasonal, injectable, preservative free MPSV4 (meningococcal polysaccharide vaccination) Menactra meningococcal polysaccharide vaccine (MPSV4) hepatitis A immunization #1 Havrix-Pedi hepa titis A vaccine, unspecified formulation Adacel (Tetanus, reduced Diphtheria, and acellular Per tussis Immunization) Adacel [[id number]] tetanus toxoid, reduced diph theria toxoid, and [...] Range Description blood pressure, diastolic - 8462-4 80 mm[Hg] BP michele blood pressure, systolic - 8480-6 121 mm[Hg] BP sys height E&M - 8302-2 68.25 [in_us] Bdy h eight pulse rate E&M - 8867-4 103 /min H eart rate temperature E&M 99.2 [degF] Body temp erature weight E&M - 3141-9 137.5 [lb_av] Weigh t Measured blood pressure, diastolic - 8462-4 68 mm[Hg] [...] 11 .0-15.0 platelet count 210 THOUSAND/UL 10*3/mm3 343-071 0350/11/02 mean platelet volume 10.3 fL 7.5-11.5 Lab [...] N Encounters Code Encounter Date Provider Facility CPT-67909 Level 3 Est. Patient 15:21:38 SUPERVISOR RECORD PRESS Rayna Pepper APRN [facility] CPT-88365 Level 3 Est. Patient 15:35:51 SUPERVISOR RECORD PRESS Ned Navarrete MD [facility] CPT-63609 Level 2 Est. Patient 12:43:40 CDT Ned Navarrete MD [facility] CPT-35567 Level 3 Est. Patient 14:38:48 CDT Toni duque DO [facility] CPT-30137 Level 3 Est. Patient 09:02:58 SUPERVISOR RECORD PRESS George paulson MD [facility] CPT-91803 Level 3 Est. Patient 17:42:32 CDT Ned Navarrete MD [facility] CPT-45227 Level 3 Est. Patient 11:04:31 SUPERVISOR RECORD PRESS [address] caroline QUEVEDON [facility] CPT-05307 Level 4 Est. Patient 12:27:05 SUPERVISOR RECORD PRESS Ned Navarrete MD [facility] CPT-44725 Level 3 Est. Patient 11:31:58 SUPERVISOR RECORD PRESS Ned Navarrete MD [facility] CPT-42263 Level 3 Est. Patient 16:49:32 CDT Ned Navarrete MD [facility] CPT-38564 Level 4 Est. Patient 14:11:59 SUPERVISOR RECORD PRESS Saskia green MD, PhD [facility] CPT-40979 Level 3 Est. Patient 17:34:25 CDT Ned Navarrete MD [facility] CPT-97979 Level 3 Est. Patient 17:34:19 CDT Ned Navarrete MD [facility] CPT-41337 Level 3 Est. Patient 13:46:05 CDT Ned Navarrete MD [facility] CPT-44570 Level 3 Est. Patient 16:55:47 SUPERVISOR RECORD PRESS Ned Navarrete MD [facility] CPT-24095 Level 2 Est. Patient 17:33:08 SUPERVISOR RECORD PRESS Ned Navarrete MD [facility]-71484 Level 3 Est. Patient 16:25:26 SUPERVISOR RECORD PRESS Ned Navarrete MD [facility] Procedures Code Procedure Name Date Entry Date Standard Desc ription CPT-04054 No Charge Offi Visit 11:24:44 CDT 1 CPT-78606 Visit 14:52:59 CDT CPT-64848 Visit 15:17:20 CDT CPT-65427 Visit 15:57:29 CDT CPT-61313 First Vx - Ix admin via ID I M or jet injects without counseling by physician 15:53:15 CDT CPT-67262 Boostrix Intramuscular Suspension 5-2.5-18.5 201 01/28/11 15:53:14 CDT CPT-84253 Tdap 7yrs or > 14:41:06 CDT CPT-60719 Visit 17:47:08 CDT CPT-96466 OBGTT 1 - LAB USE ONLY 10:15:57 CDT CPT-11554 Venipuncture Draw Fee 10:15:57 CDT CPT-39374 Visit 15:07:16 SUPERVISOR RECORD PRESS CPT-59611 Visit 16:49:41 SUPERVISOR RECORD PRESS CPT-67898 Sono OB limited - XRAY USE ONLY 16:38:01 CS T CPT-90925 Sono OB comp > 14 weeks - XRAY USE ONLY 17:00:59 SUPERVISOR RECORD PRESS CPT-78657 UA w micro - LAB USE ONLY 16:59:38 CDT 2015 CPT-99543 TSH - LAB USE ONLY 16:59:38 CDT CPT-30468 Venipuncture Draw Fee 16:59:38 CDT CPT-87297 Spec Collection and Handling Fee 14:01:24 C DT CPT-50361 Visit 14:01:24 CDT CPT-033 [facility] Med Screen 14:03:18 CDT CPT-033 [facility] Med Screen 11:04:57 CDT CPT-033 [facility] Med Screen 10:29:44 CDT CPT-55583 Administration 2+ single or combination vaccines inc oral 14:02:47 SUPERVISOR RECORD PRESS CPT-13067 Administration single or combination vac cine inc oral 14:02:47 SUPERVISOR RECORD PRESS CPT-50749 Hepatitis A ped/adol 2 dose schedule 14:02:47 SUPERVISOR RECORD PRESS CPT-75360 Gardasil 14:02:47 SUPERVISOR RECORD PRESS CPT-14031 Administration single or combination vac cine inc oral 11:40:38 SUPERVISOR RECORD PRESS CPT-95571 Gardasil 11:40:38 SUPERVISOR RECORD PRESS CPT-02007 Administration single or combination vac cine inc oral 09:45:00 CDT CPT-37133 Influenza Preservative Free split virus >age 3 09:45:00 CDT CPT-52118 Venipuncture Draw Fee 07:59:02 CDT
--- OUTSIDE RECORDS SUMMARY | 2019-10-10 20:35 | XMS REPORT | Clinical Summary ---
Author Author Admin, Son Rodriguez [facility] Address Unknown Phone Unavailable Allergies, Adverse [...] visual disturbance, unspecified SINUSITIS, ACUTE 461.9 Resolved Nde Navarrete MD Acute sinusitis, unspecified WELL CHILD [...] Prescott MD Gastroenteritis Inactive George Frances MD Pharyngitis, acute ICD-462 Inactive Ned Navarrete MD Medication List Medication Instructions Start Date Stop Date Generic Name NDC Status Provider Patient Instruction LATUDA 20 MG ORAL TABS LURASIDONE HCL 4613412 0230 Active Breanne Madl TECHNICAL SERVICE REP Active CEPHALEXIN 500 MG ORAL CAPS CEPHALEXIN 753110 40630 Active Breanne Madl TECHNICAL SERVICE REP Active LORATADINE 10 MG TABS 1 tablet by mouth daily L ORATADINE 89528839155 No Longer Active Breanne Madl TECHNICAL SERVICE REP Active HYDROXYZINE HCL 25 MG TABS Take 1-2 tablets daily 2015 HYDROXYZINE HCL 88134610918 No Longer Active Breanne Madl TECHNICAL SERVICE REP Active ORTHO TRI-CYCLEN (28) 0.18/0.215/0.25 MG-35 MCG TABS 1 daily NORGESTIM-ETH ESTRAD TRIPHASIC 81258330930 No Longer Active Breanne Priti MARKS Active CLARITIN 10 MG TAB 1 tablet by mouth daily as needed for itchy r khari LORATADINE 82083303438 No Longer Active Ned Navarrete MD Active AUGMENTIN 875-125 MG TAB 1 po BID x 10 days with food AMOXICILLIN-POT CLAVULANATE 62321826571 No Longer Active Toni Washington DO Active ORTHO TRI-CYCLEN (28) 0.18/0.215/0.25 MG-35 MCG TABS 1 daily NORGESTIM-ETH ESTRAD TRIPHASIC 63444800643 No Longer Active Ned Navarrete MD Active ZOFRAN ODT 4 MG TBDP 1 po q6hr PRN Nausea ONDAN SETRON 22030473173 No Longer Active Ned Navarrete MD Active [facility] MEL[facility] 3 MG TABS Take 1 tablet at bedtime. 2013 MELATONIN 30723127849 No Longer Active Ned Navarrete MD Activ e BIOTIN 1000 MCG TABS Take 2 tablets daily BIOTI N 66288065333 No Longer Active Ned Navarrete MD Active OMEPRAZOLE 20 MG CPDR 1 tablet by mouth daily O MEPRAZOLE 07748011856 No Longer Active Mariana Moses APRN Active LATUDA 80 MG TABS 1 tablet daily LURASIDONE HCL 76031288154 No Longer Active Mariana Moses APRN Active ZOVIRAX 400 MG TABS Take 1 tablet every 8 hours as needed 2 ACYCLOVIR 01602961858 No Longer Active Ned Navarrete MD Activ e ZITHROMAX Z-CHACE 250 MG TABS 2 today, then 1 daily for 4 days 201 10/06/11 AZITHROMYCIN 85727020421 No Longer Active Ned Navarrete MD Active TOPAMAX 100 MG TABS 1 tablet daily TOPIRAMATE 54 925140758 No Longer Active Ned Navarrete MD Active AMOXICILLIN 500 MG CAPS 2 po BID x 10 days AMOX ICILLIN 17864029237 No Longer Active Saskia Simon MD PhD Active NAPROSYN 375 MG TAB 1 twice a day as needed for chest pain 04/01 NAPROXEN 71914098641 No Longer Active Saskia Simon MD PhD Active HYDROCORTISONE 2.5 % EXT CREA Apply three times a day to aff ected area HYDROCORTISONE 12856690430 No Longer Active Ned Navarrete MD Active TOPIRAMATE 50 MG TABS 1 QD TOPIRAMATE 36739239901 No Longer Active Ned Navarrete MD Active FANAPT 6 MG TABS 1 BID ILOPERIDONE 14087644034 No L onger Active Ned Navarrete MD Active CIPROFLOXACIN HCL 0.3 % SOLN 1 drop in right eye every 2 hours for 2 days, then 1 drop four times a day CIPROFLOXACIN HCL 53870441597 No Longer Active Ned Navarrete MD Active LORATADINE 10 MG TABS 1 tablet by mouth daily L ORATADINE 09530454542 No Longer Active Ned Navarrete MD Active RANITIDINE HCL 150 MG CAPS 1 twice a day RANITI DINE HCL 59128502515 No Longer Active Ned Navarrete MD Active RANITIDINE HCL 150 MG CAPS 1 twice a day RANITIDINE HCL 150 MG CAPS 177561 RANITIDINE HCL Inactive LORATADINE 10 MG TABS 1 tablet by mouth daily LORATADINE 10 MG TABS 355789 LORATADINE Inactive CIPROFLOXACIN HCL 0.3 % SOLN 1 drop in right eye every 2 hours for 2 days, then 1 drop four times a day CIPROFLOXACIN HCL 0.3 % SOLN 295137 CIPROFLOXACIN HCL Inactive FANAPT 6 MG TABS 1 BID FANAPT 6 MG TABS ILO PERIDONE Inactive TOPIRAMATE 50 MG TABS 1 QD TOPIRAMATE 50 MG TABS 1 85681 TOPIRAMATE Inactive HYDROCORTISONE 2.5 % EXT CREA Apply three times a day to aff ected area HYDROCORTISONE 2.5 % EXT CREA 107500 HYDROCORTIS ONE Inactive NAPROSYN 375 MG TAB 1 twice a day as needed for chest pain 04/01 NAPROSYN 375 MG TAB NAPROXEN Inactive TOPAMAX 100 MG TABS 1 tablet daily TOPAMAX 100 MG TABS 422644 TOPIRAMATE Inactive ZOVIRAX 400 MG TABS Take 1 tablet every 8 hours as needed 2 ZOVIRAX 400 MG TABS 19720728 ACYCLOVIR Inactive LATUDA 80 MG TABS 1 tablet daily LATUDA 80 MG TA BS LURASIDONE HCL Inactive OMEPRAZOLE 20 MG CPDR 1 tablet by mouth daily OMEPRAZOLE 20 MG CPDR 807784 OMEPRAZOLE Inactive BIOTIN 1000 MCG TABS Take 2 tablets daily BIOTIN 1000 MCG TABS 521503 BIOTIN Inactive [facility] M[facility] 3 MG TABS Take 1 tablet at bedtime. 2013 [facility] MEL[facility] 3 MG TABS 057477 MELATONIN Inactive ZOFRAN ODT 4 MG TBDP 1 po q6hr PRN Nausea ZOFRAN ODT 4 MG TBDP 136826 ONDANSETRON Inactive ORTHO TRI-CYCLEN (28) 0.18/0.215/0.25 MG-35 MCG TABS 1 daily ORTHO TRI-CYCLEN (28) 0.18/0.215/0.25 MG-35 MCG TABS 772003 NORGESTIM-ETH ESTRAD TRIPHASIC Inactive CLARITIN 10 MG TAB 1 tablet by mouth daily as needed for itchy r khari CLARITIN 10 MG TAB 077839 LORATADINE Inactive ORTHO TRI-CYCLEN (28) 0.18/0.215/0.25 MG-35 MCG TABS 1 daily ORTHO TRI-CYCLEN (28) 0.18/0.215/0.25 MG-35 MCG TABS 930582 NORGESTIM-ETH ESTRAD TRIPHASIC Inactive HYDROXYZINE HCL 25 MG TABS Take 1-2 tablets daily 2015 HYDROXYZINE HCL 25 MG TABS 163343 HYDROXYZINE HCL Inactive LORATADINE 10 MG TABS 1 tablet by mouth daily LORATADINE 10 MG TABS 820795 LORATADINE Inactive AMOXICILLIN 500 MG CAPS 2 po BID x 10 days AMOXICILLIN 500 MG CAPS 740099 AMOXICILLIN Inactive ZITHROMAX Z-CHACE 250 MG TABS 2 today, then 1 daily for 4 days 201 10/06/11 ZITHROMAX Z-CHACE 250 MG TABS 4708795 AZITHROMYCIN Inac tive AUGMENTIN 875-125 MG TAB 1 po BID x 10 days with food AUGMENTIN 875-125 MG TAB 119789 AMOXICILLIN-POT CLAVULANATE Inactiv e Advance Directives Directive [...] 18 yo)) Fluzone preservative free (>3 yrs.) [[id number]] Influenza, seasonal, injectable, preservative free MPSV4 (meningococcal polysaccharide vaccination) Menactra meningococcal polysaccharide vaccine (MPSV4) hepatitis A immunization #1 Havrix-Pedi hepa titis A vaccine, unspecified formulation Adacel (Tetanus, reduced Diphtheria, and acellular Per tussis Immunization) Adacel [[id number]] tetanus toxoid, reduced diph theria toxoid, and [...] 11 .0-15.0 platelet count 210 THOUSAND/UL 10*3/mm3 864-399 9756/11/02 mean platelet volume 10.3 fL 7.5-11.5 Lab [...] ative Encounters Code Encounter Date Provider Facility CPT-80572 Level 2 Est. Patient 12:43:40 CDT Ned Navarrete MD [facility]-16556 Level 3 Est. Patient 14:38:48 CDT Toni duque DO [facility]-10221 Level 3 Est. Patient 09:02:58 HYGIENE ASSISTANT George paulson MD [facility] CPT-46064 Level 3 Est. Patient 17:42:32 CDT Ned Navarrete MD [facility]-06912 Level 3 Est. Patient 11:04:31 HYGIENE ASSISTANT Mariana Torrez APRN [facility] CPT-27210 Level 4 Est. Patient 12:27:05 HYGIENE ASSISTANT Ned Navarrete MD [facility]-26556 Level 3 Est. Patient 11:31:58 HYGIENE ASSISTANT Ned Navarrete MD [facility] CPT-54985 Level 3 Est. Patient 16:49:32 CDT Ned Navarrete MD [facility] CPT-86996 Level 4 Est. Patient 14:11:59 HYGIENE ASSISTANT Saskia green MD PhD [facility] CPT-47828 Level 3 Est. Patient 17:34:25 CDT Ned Navarrete MD [facility]-57490 Level 3 Est. Patient 17:34:19 CDT Ned Navarrete MD [facility]-16611 Level 3 Est. Patient 13:46:05 CDT Ned Navarrete MD [facility]-68638 Level 3 Est. Patient 16:55:47 HYGIENE ASSISTANT Ned Navarrete MD [facility] CPT-53923 Level 2 Est. Patient 17:33:08 HYGIENE ASSISTANT Ned Navarrete MD [facility] CPT-69743 Level 3 Est. Patient 16:25:26 HYGIENE ASSISTANT Ned Navarrete MD [facility] Procedures Code Procedure Name Date Entry Date Standard Desc ription CPT-92035 Sono OB comp > 14 weeks - XRAY USE ONLY 17:00:59 HYGIENE ASSISTANT CPT-61813 UA w micro - LAB USE ONLY 16:59:38 CDT 2015 CPT-83391 TSH - LAB USE ONLY 16:59:38 CDT CPT-21794 Venipuncture Draw Fee 16:59:38 CDT CPT-91986 Spec Collection and Handling Fee 14:01:24 C DT CPT-61777 Visit 14:01:24 CDT CPT-033 KB Med Screen 14:03:18 CDT CPT-033 KB Med Screen 11:04:57 CDT CPT-033 KB Med Screen 10:29:44 CDT CPT-06854 Administration 2+ single or combination vaccines inc oral 14:02:47 HYGIENE ASSISTANT CPT-89904 Administration single or combination vac cine inc oral 14:02:47 HYGIENE ASSISTANT CPT-09432 Hepatitis A ped/adol 2 dose schedule 14:02:47 HYGIENE ASSISTANT CPT-41625 Gardasil 14:02:47 HYGIENE ASSISTANT CPT-96655 Administration single or combination vac cine inc oral 11:40:38 HYGIENE ASSISTANT CPT-75904 Gardasil 11:40:38 HYGIENE ASSISTANT CPT-53539 Administration single or combination vac cine inc oral 09:45:00 CDT CPT-53119 Influenza Preservative Free split virus >age 3 09:45:00 CDT CPT-69596 Venipuncture Draw Fee 07:59:02 CDT
--- OUTSIDE RECORDS SUMMARY | 2019-10-10 20:35 | XMS REPORT | Clinical Summary ---
Author Author Admin, Son Rodriguez [facility] Address Unknown Phone Unavailable Allergies, Adverse Reactions, [...] condition or complication Methamphetamine abuse 305.70 [facility] Amphetamine or related [...] 1 herman ly for 3 days PREDNISONE 10531116572 No Longer Active Ned pérez MD Active CEPHALEXIN 500 MG ORAL CAPS CEPHALEXIN 07912588957 No Longer Active Ned Navarrete MD Active LATUDA 20 MG ORAL TABS LURASIDONE HCL 8066495 0230 Active Breanne Madl DIRECTOR OF SAFETY AND SECURITY Active LORATADINE 10 MG TABS 1 tablet by mouth daily L ORATADINE 05210116329 No Longer Active Breanne Madl DIRECTOR OF SAFETY AND SECURITY Active HYDROXYZINE HCL 25 MG TABS Take 1-2 tablets daily 2015 HYDROXYZINE HCL 51318744444 No Longer Active Breanne Madl DIRECTOR OF SAFETY AND SECURITY Active ORTHO TRI-CYCLEN (28) 0.18/0.215/0.25 MG-35 MCG TABS 1 daily NORGESTIM-ETH ESTRAD TRIPHASIC 45876774855 No Longer Active Breanne Madl DIRECTOR OF SAFETY AND SECURITY Active CLARITIN 10 MG TAB 1 tablet by mouth daily as needed for itchy r khari LORATADINE 05623202902 No Longer Active Ned Navarrete MD Active AUGMENTIN 875-125 MG TAB 1 po BID x 10 days with food AMOXICILLIN-POT CLAVULANATE 26268928348 No Longer Active Toni Washington DO Active ORTHO TRI-CYCLEN (28) 0.18/0.215/0.25 MG-35 MCG TABS 1 daily NORGESTIM-ETH ESTRAD TRIPHASIC 22288391725 No Longer Active Ned Navarrete MD Active ZOFRAN ODT 4 MG TBDP 1 po q6hr PRN Nausea ONDAN SETRON 18434231363 No Longer Active Ned Navarrete MD Active [facility] MEL[facility] 3 MG TABS Take 1 tablet at bedtime. 2013 MELATONIN 04398791185 No Longer Active Ned Navarrete MD Activ e BIOTIN 1000 MCG TABS Take 2 tablets daily BIOTI N 94845096764 No Longer Active Ned Navarrete MD Active OMEPRAZOLE 20 MG CPDR 1 tablet by mouth daily O MEPRAZOLE 83197472601 No Longer Active Mariana Moses APRN Active LATUDA 80 MG TABS 1 tablet daily LURASIDONE HCL 69121663267 No Longer Active Mariana Moses APRN Active ZOVIRAX 400 MG TABS Take 1 tablet every 8 hours as needed 2 ACYCLOVIR 97779727058 No Longer Active Ned Navarrete MD Activ e ZITHROMAX Z-CHACE 250 MG TABS 2 today, then 1 daily for 4 days 201 10/06/11 AZITHROMYCIN 89057371987 No Longer Active Ned Navarrete MD Active TOPAMAX 100 MG TABS 1 tablet daily TOPIRAMATE 54 402135020 No Longer Active Ned Navarrete MD Active AMOXICILLIN 500 MG CAPS 2 po BID x 10 days AMOX ICILLIN 30855815156 No Longer Active Saskia Simon MD PhD Active NAPROSYN 375 MG TAB 1 twice a day as needed for chest pain 04/01 NAPROXEN 60524667375 No Longer Active Saskia Simon MD PhD Active HYDROCORTISONE 2.5 % EXT CREA Apply three times a day to aff ected area HYDROCORTISONE 17424960700 No Longer Active Ned Navarrete MD Active TOPIRAMATE 50 MG TABS 1 QD TOPIRAMATE 62110664535 No Longer Active Ned Navarrete MD Active FANAPT 6 MG TABS 1 BID ILOPERIDONE 85199335875 No L onger Active Ned Navarrete MD Active CIPROFLOXACIN HCL 0.3 % SOLN 1 drop in right eye every 2 hours for 2 days, then 1 drop four times a day CIPROFLOXACIN HCL 95037818176 No Longer Active Ned Navarrete MD Active LORATADINE 10 MG TABS 1 tablet by mouth daily L ORATADINE 82271945670 No Longer Active Ned Navarrete MD Active RANITIDINE HCL 150 MG CAPS 1 twice a day RANITI DINE HCL 68904446040 No Longer Active Ned Navarrete MD Active RANITIDINE HCL 150 MG CAPS 1 twice a day RANITIDINE HCL 150 MG CAPS 448958 RANITIDINE HCL Inactive LORATADINE 10 MG TABS 1 tablet by mouth daily LORATADINE 10 MG TABS 733728 LORATADINE Inactive CIPROFLOXACIN HCL 0.3 % SOLN 1 drop in right eye every 2 hours for 2 days, then 1 drop four times a day CIPROFLOXACIN HCL 0.3 % SOLN 616055 CIPROFLOXACIN HCL Inactive FANAPT 6 MG TABS 1 BID FANAPT 6 MG TABS ILO PERIDONE Inactive TOPIRAMATE 50 MG TABS 1 QD TOPIRAMATE 50 MG TABS 1 02044 TOPIRAMATE Inactive HYDROCORTISONE 2.5 % EXT CREA Apply three times a day to aff ected area HYDROCORTISONE 2.5 % EXT CREA 187479 HYDROCORTIS ONE Inactive NAPROSYN 375 MG TAB 1 twice a day as needed for chest pain 04/01 NAPROSYN 375 MG TAB NAPROXEN Inactive TOPAMAX 100 MG TABS 1 tablet daily TOPAMAX 100 MG TABS 761930 TOPIRAMATE Inactive ZOVIRAX 400 MG TABS Take 1 tablet every 8 hours as needed 2 ZOVIRAX 400 MG TABS 371353 ACYCLOVIR Inactive LATUDA 80 MG TABS 1 tablet daily LATUDA 80 MG TA BS LURASIDONE HCL Inactive OMEPRAZOLE 20 MG CPDR 1 tablet by mouth daily OMEPRAZOLE 20 MG CPDR 698632 OMEPRAZOLE Inactive BIOTIN 1000 MCG TABS Take 2 tablets daily BIOTIN 1000 MCG TABS 367915 BIOTIN Inactive [facility] M[facility] 3 MG TABS Take 1 tablet at bedtime. 2013 [facility] 3 MG TABS 110498 MELATONIN Inactive ZOFRAN ODT 4 MG TBDP 1 po q6hr PRN Nausea ZOFRAN ODT 4 MG TBDP 053132 ONDANSETRON Inactive ORTHO TRI-CYCLEN (28) 0.18/0.215/0.25 MG-35 MCG TABS 1 daily ORTHO TRI-CYCLEN (28) 0.18/0.215/0.25 MG-35 MCG TABS 329714 NORGESTIM-ETH ESTRAD TRIPHASIC Inactive CLARITIN 10 MG TAB 1 tablet by mouth daily as needed for itchy r khari CLARITIN 10 MG TAB 652903 LORATADINE Inactive ORTHO TRI-CYCLEN (28) 0.18/0.215/0.25 MG-35 MCG TABS 1 daily ORTHO TRI-CYCLEN (28) 0.18/0.215/0.25 MG-35 MCG TABS 033602 NORGESTIM-ETH ESTRAD TRIPHASIC Inactive HYDROXYZINE HCL 25 MG TABS Take 1-2 tablets daily 2015 HYDROXYZINE HCL 25 MG TABS 441358 HYDROXYZINE HCL Inactive LORATADINE 10 MG TABS 1 tablet by mouth daily LORATADINE 10 MG TABS 887714 LORATADINE Inactive CEPHALEXIN 500 MG ORAL CAPS CEPHALEX IN 500 MG ORAL CAPS 911662 CEPHALEXIN Inactive PREDNISONE 20 MG TABS Take 2 daily for 3 days and then 1 herman ly for 3 days PREDNISONE 20 MG TABS 653086 PREDNISONE Inacti ve AMOXICILLIN 500 MG CAPS 2 po BID x 10 days AMOXICILLIN 500 MG CAPS 138951 AMOXICILLIN Inactive ZITHROMAX Z-CHACE 250 MG TABS 2 today, then 1 daily for 4 days 201 10/06/11 ZITHROMAX Z-CHACE 250 MG TABS 0230638 AZITHROMYCIN Inac tive AUGMENTIN 875-125 MG TAB 1 po BID x 10 days with food AUGMENTIN 875-125 MG TAB 987623 AMOXICILLIN-POT CLAVULANATE Inactiv e Advance Directives Directive [...] 18 yo)) Fluzone preservative free (>3 yrs.) [[id number]] Influenza, seasonal, injectable, preservative free MPSV4 (meningococcal polysaccharide vaccination) Menactra meningococcal polysaccharide vaccine (MPSV4) hepatitis A immunization #1 Havrix-Pedi hepa titis A vaccine, unspecified formulation Adacel (Tetanus, reduced Diphtheria, and acellular Per tussis Immunization) Adacel [OAQ851] tetanus toxoid, reduced diph theria toxoid, and [...] 11 .0-15.0 platelet count 210 THOUSAND/UL 10*3/mm3 354-052 2591/11/02 mean platelet volume 10.3 fL 7.5-11.5 Lab [...] N Encounters Code Encounter Date Provider Facility CPT-90945 Level 3 Est. Patient 15:21:38 AUTO VINYL TOP INSTALLER Rayna Pepper [facility] CPT-02094 Level 3 Est. Patient 15:35:51 AUTO VINYL TOP INSTALLER Ned Navarrete MD [facility] CPT-66982 Level 2 Est. Patient 12:43:40 CDT Ned Navarrete MD [facility] CPT-13918 Level 3 Est. Patient 14:38:48 CDT Toni duque DO [facility] CPT-48300 Level 3 Est. Patient 09:02:58 AUTO VINYL TOP INSTALLER George paulson MD [facility] CPT-09410 Level 3 Est. Patient 17:42:32 CDT Ned Navarrete MD [facility] CPT-67387 Level 3 Est. Patient 11:04:31 AUTO VINYL TOP INSTALLER Mariana Torrez [facility] CPT-89373 Level 4 Est. Patient 12:27:05 AUTO VINYL TOP INSTALLER Ned Navarrete MD [facility] CPT-85909 Level 3 Est. Patient 11:31:58 AUTO VINYL TOP INSTALLER Ned Navarrete MD [facility] CPT-57464 Level 3 Est. Patient 16:49:32 CDT Ned Navarrete MD [facility] CPT-82847 Level 4 Est. Patient 14:11:59 AUTO VINYL TOP INSTALLER Saskia green MD PhD [facility] CPT-45273 Level 3 Est. Patient 17:34:25 CDT Ned Navarrete MD [facility] CPT-14565 Level 3 Est. Patient 17:34:19 CDT Ned Navarrete MD [facility] CPT-89074 Level 3 Est. Patient 13:46:05 CDT Ned Navarrete MD [facility] CPT-69389 Level 3 Est. Patient 16:55:47 AUTO VINYL TOP INSTALLER Ned Navarrete MD [facility] CPT-57481 Level 2 Est. Patient 17:33:08 AUTO VINYL TOP INSTALLER Ned Navarrete MD [facility] CPT-52506 Level 3 Est. Patient 16:25:26 AUTO VINYL TOP INSTALLER Ned Navarrete MD [facility] Procedures Code Procedure Name Date Entry Date Standard Desc ription CPT-90980 Visit 17:47:08 CDT CPT-14735 OBGTT 1 - LAB USE ONLY 10:15:57 CDT CPT-47474 Venipuncture Draw Fee 10:15:57 CDT CPT-69475 Visit 15:07:16 AUTO VINYL TOP INSTALLER CPT-98886 Visit 16:49:41 AUTO VINYL TOP INSTALLER CPT-92486 Sono OB limited - XRAY USE ONLY 16:38:01 CS T CPT-89068 Sono OB comp > 14 weeks - XRAY USE ONLY 17:00:59 AUTO VINYL TOP INSTALLER CPT-74665 UA w micro - LAB USE ONLY 16:59:38 CDT 2015 CPT-04459 TSH - LAB USE ONLY 16:59:38 CDT CPT-92633 Venipuncture Draw Fee 16:59:38 CDT CPT-49480 Spec Collection and Handling Fee 14:01:24 C DT CPT-62399 Visit 14:01:24 CDT CPT-033 [facility] Med Screen 14:03:18 CDT CPT-033 [facility] Med Screen 11:04:57 CDT CPT-033 [facility] Med Screen 10:29:44 CDT CPT-60632 Administration 2+ single or combination vaccines inc oral 14:02:47 AUTO VINYL TOP INSTALLER CPT-44935 Administration single or combination vac cine inc oral 14:02:47 AUTO VINYL TOP INSTALLER CPT-33573 Hepatitis A ped/adol 2 dose schedule 14:02:47 AUTO VINYL TOP INSTALLER CPT-00544 Gardasil 14:02:47 AUTO VINYL TOP INSTALLER CPT-52996 Administration single or combination vac cine inc oral 11:40:38 AUTO VINYL TOP INSTALLER CPT-07938 Gardasil 11:40:38 AUTO VINYL TOP INSTALLER CPT-13516 Administration single or combination vac cine inc oral 09:45:00 CDT CPT-73753 Influenza Preservative Free split virus >age 3 09:45:00 CDT CPT-28905 Venipuncture Draw Fee 07:59:02 CDT
--- OUTSIDE RECORDS SUMMARY | 2019-10-10 20:36 | XMS REPORT | Clinical Summary ---
Author Author Admin, Son Chan Organization [employer] Address Unknown Phone Unavailable Allergies, Adverse Reactions, [...] 1 [address]man ly for 3 days PREDNISONE [id number] No Longer Active Ned pérez MD Active CEPHALEXIN 500 MG ORAL CAPS CEPHALEXIN 99210431061 No Longer Active Ned Navarrete MD Active LATUDA 20 MG ORAL TABS LURASIDONE HCL 4979271 0230 Active Breanne Madl KITCHEN STEWARDESS Active LORATADINE 10 MG TABS 1 tablet by mouth daily L ORATADINE 10873955289 No Longer Active Breanne Madl KITCHEN STEWARDESS Active HYDROXYZINE HCL 25 MG TABS Take 1-2 tablets daily 2015 HYDROXYZINE HCL 77525679593 No Longer Active Breanne Madl KITCHEN STEWARDESS Active ORTHO TRI-CYCLEN (28) 0.18/0.215/0.25 MG-35 MCG TABS 1 daily NORGESTIM-ETH ESTRAD TRIPHASIC 95286476942 No Longer Active Breanne Madl KITCHEN STEWARDESS Active CLARITIN 10 MG TAB 1 tablet by mouth daily as needed for itchy r khari LORATADINE 23981177527 No Longer Active Ned Navarrete MD Active AUGMENTIN 875-125 MG TAB 1 po BID x 10 days with food AMOXICILLIN-POT CLAVULANATE 60622012553 No Longer Active Toni Washington DO Active ORTHO TRI-CYCLEN (28) 0.18/0.215/0.25 MG-35 MCG TABS 1 daily NORGESTIM-ETH ESTRAD TRIPHASIC 43947428967 No Longer Active Ned Navarrete MD Active ZOFRAN ODT 4 MG TBDP 1 po q6hr PRN Nausea ONDAN SETRON 41078325897 No Longer Active Ned Navarrete MD Active [facility] 3 MG TABS Take 1 tablet at bedtime. 2013 MELATONIN 09859310988 No Longer Active Ned Navarrete MD Activ e BIOTIN 1000 MCG TABS Take 2 tablets daily BIOTI N 68320805715 No Longer Active Ned Navarrete MD Active OMEPRAZOLE 20 MG CPDR 1 tablet by mouth daily O MEPRAZOLE 34162258622 No Longer Active Mariana Moses APRN Active LATUDA 80 MG TABS 1 tablet daily LURASIDONE HCL 79119434245 No Longer Active Mariana Moses APRN Active ZOVIRAX 400 MG TABS Take 1 tablet every 8 hours as needed 2 ACYCLOVIR 56436867741 No Longer Active Ned Navarrete MD Activ e ZITHROMAX Z-CHACE 250 MG TABS 2 today, then 1 daily for 4 days 201 10/06/11 AZITHROMYCIN 63142974226 No Longer Active Ned Navarrete MD Active TOPAMAX 100 MG TABS 1 tablet daily TOPIRAMATE 54 804835413 No Longer Active Ned Navarrete MD Active AMOXICILLIN 500 MG CAPS 2 po BID x 10 days AMOX ICILLIN 76362199240 No Longer Active Saskia Simon MD PhD Active NAPROSYN 375 MG TAB 1 twice a day as needed for chest pain 04/01 NAPROXEN 85325184386 No Longer Active Saskia Simon MD PhD Active HYDROCORTISONE 2.5 % EXT CREA Apply three times a day to aff ected area HYDROCORTISONE 46886487986 No Longer Active Ned Navarrete MD Active TOPIRAMATE 50 MG TABS 1 QD TOPIRAMATE 65507221418 No Longer Active Ned Navarrete MD Active FANAPT 6 MG TABS 1 BID ILOPERIDONE 21829224011 No L onger Active Ned Navarrete MD Active CIPROFLOXACIN HCL 0.3 % SOLN 1 drop in right eye every 2 hours for 2 days, then 1 drop four times a day CIPROFLOXACIN HCL 17119995599 No Longer Active Ned Navarrete MD Active LORATADINE 10 MG TABS 1 tablet by mouth daily L ORATADINE 44922948293 No Longer Active Ned Navarrete MD Active RANITIDINE HCL 150 MG CAPS 1 twice a day RANITI DINE HCL 09768614934 No Longer Active Ned Navarrete MD Active RANITIDINE HCL 150 MG CAPS 1 twice a day RANITIDINE HCL 150 MG CAPS 222108 RANITIDINE HCL Inactive LORATADINE 10 MG TABS 1 tablet by mouth daily LORATADINE 10 MG TABS 255447 LORATADINE Inactive CIPROFLOXACIN HCL 0.3 % SOLN 1 drop in right eye every 2 hours for 2 days, then 1 drop four times a day CIPROFLOXACIN HCL 0.3 % SOLN 946352 CIPROFLOXACIN HCL Inactive FANAPT 6 MG TABS 1 BID FANAPT 6 MG TABS ILO PERIDONE Inactive TOPIRAMATE 50 MG TABS 1 QD TOPIRAMATE 50 MG TABS 1 52829 TOPIRAMATE Inactive HYDROCORTISONE 2.5 % EXT CREA Apply three times a day to aff ected area HYDROCORTISONE 2.5 % EXT CREA 146494 HYDROCORTIS ONE Inactive NAPROSYN 375 MG TAB 1 twice a day as needed for chest pain 04/01 NAPROSYN 375 MG TAB NAPROXEN Inactive TOPAMAX 100 MG TABS 1 tablet daily TOPAMAX 100 MG TABS 766963 TOPIRAMATE Inactive ZOVIRAX 400 MG TABS Take 1 tablet every 8 hours as needed 2 ZOVIRAX 400 MG TABS 046615 ACYCLOVIR Inactive LATUDA 80 MG TABS 1 tablet daily LATUDA 80 MG TA BS LURASIDONE HCL Inactive OMEPRAZOLE 20 MG CPDR 1 tablet by mouth daily OMEPRAZOLE 20 MG CPDR 152074 OMEPRAZOLE Inactive BIOTIN 1000 MCG TABS Take 2 tablets daily BIOTIN 1000 MCG TABS 740294 BIOTIN Inactive [facility] 3 MG TABS Take 1 tablet at bedtime. 2013 [facility] M[facility] 3 MG TABS 432008 MELATONIN Inactive ZOFRAN ODT 4 MG TBDP 1 po q6hr PRN Nausea ZOFRAN ODT 4 MG TBDP 562356 ONDANSETRON Inactive ORTHO TRI-CYCLEN (28) 0.18/0.215/0.25 MG-35 MCG TABS 1 daily ORTHO TRI-CYCLEN (28) 0.18/0.215/0.25 MG-35 MCG TABS 540408 NORGESTIM-ETH ESTRAD TRIPHASIC Inactive CLARITIN 10 MG TAB 1 tablet by mouth daily as needed for itchy r khari CLARITIN 10 MG TAB 265136 LORATADINE Inactive ORTHO TRI-CYCLEN (28) 0.18/0.215/0.25 MG-35 MCG TABS 1 daily ORTHO TRI-CYCLEN (28) 0.18/0.215/0.25 MG-35 MCG TABS 906855 NORGESTIM-ETH ESTRAD TRIPHASIC Inactive HYDROXYZINE HCL 25 MG TABS Take 1-2 tablets daily 2015 HYDROXYZINE HCL 25 MG TABS 032653 HYDROXYZINE HCL Inactive LORATADINE 10 MG TABS 1 tablet by mouth daily LORATADINE 10 MG TABS 363277 LORATADINE Inactive CEPHALEXIN 500 MG ORAL CAPS CEPHALEX IN 500 MG ORAL CAPS 159092 CEPHALEXIN Inactive PREDNISONE 20 MG TABS Take 2 daily for 3 days and then 1 herman ly for 3 days PREDNISONE 20 MG TABS 370497 PREDNISONE Inacti ve AMOXICILLIN 500 MG CAPS 2 po BID x 10 days AMOXICILLIN 500 MG CAPS 749604 AMOXICILLIN Inactive ZITHROMAX Z-CHACE 250 MG TABS 2 today, then 1 daily for 4 days 201 10/06/11 ZITHROMAX Z-CHACE 250 MG TABS 3843437 AZITHROMYCIN Inac tive AUGMENTIN 875-125 MG TAB 1 po BID x 10 days with food AUGMENTIN 875-125 MG TAB 415960 AMOXICILLIN-POT CLAVULANATE Inactiv e Advance Directives Directive [...] 18 yo)) Fluzone preservative free (>3 yrs.) [[id number]] Influenza, seasonal, injectable, preservative free MPSV4 (meningococcal polysaccharide vaccination) Menactra meningococcal polysaccharide vaccine (MPSV4) hepatitis A immunization #1 Havrix-Pedi hepa titis A vaccine, unspecified formulation Adacel (Tetanus, reduced Diphtheria, and acellular Per tussis Immunization) Adacel [[id number]] tetanus toxoid, reduced diph theria toxoid, and [...] 11 .0-15.0 platelet count 210 THOUSAND/UL 10*3/mm3 151-742 7304/11/02 mean platelet volume 10.3 fL 7.5-11.5 Lab [...] N Encounters Code Encounter Date Provider Facility CPT-63590 Level 3 Est. Patient 15:21:38 EYE SPECIALIST Rayna Pepper APRN [facility] CPT-48087 Level 3 Est. Patient 15:35:51 EYE SPECIALIST Ned Navarrete MD [facility] CPT-88158 Level 2 Est. Patient 12:43:40 CDT Ned Navarrete MD [facility] CPT-07657 Level 3 Est. Patient 14:38:48 CDT Toni duque DO [facility] CPT-13892 Level 3 Est. Patient 09:02:58 EYE SPECIALIST George paulson MD [facility] CPT-02028 Level 3 Est. Patient 17:42:32 CDT Ned Navarrete MD [facility] CPT-29336 Level 3 Est. Patient 11:04:31 EYE SPECIALIST Mariana Torrez APRN [facility] CPT-44636 Level 4 Est. Patient 12:27:05 EYE SPECIALIST Ned Navarrete MD [facility] CPT-17812 Level 3 Est. Patient 11:31:58 EYE SPECIALIST Ned Navarrete MD [facility] CPT-63448 Level 3 Est. Patient 16:49:32 CDT Ned Navarrete MD [facility] CPT-69320 Level 4 Est. Patient 14:11:59 EYE SPECIALIST Saskia green MD PhD [facility] CPT-62619 Level 3 Est. Patient 17:34:25 CDT Ned Navarrete MD [facility] CPT-42366 Level 3 Est. Patient 17:34:19 CDT Ned Navarrete MD [facility] CPT-84327 Level 3 Est. Patient 13:46:05 CDT Ned Navarrete MD [facility] CPT-39472 Level 3 Est. Patient 16:55:47 EYE SPECIALIST Ned Navarrete MD [facility] CPT-16289 Level 2 Est. Patient 17:33:08 EYE SPECIALIST Ned Navarrete MD [facility] CPT-30386 Level 3 Est. Patient 16:25:26 EYE SPECIALIST Ned Navarrete MD [facility] Procedures Code Procedure Name Date Entry Date Standard Desc ription CPT-62050 Visit 15:17:20 CDT CPT-99990 Visit 15:57:29 CDT CPT-00656 First Vx - Ix admin via ID I M or jet injects without counseling by physician 15:53:15 CDT CPT-20807 Boostrix Intramuscular Suspension 5-2.5-18.5 201 01/28/11 15:53:14 CDT CPT-48304 Tdap 7yrs or > 14:41:06 CDT CPT-52631 Visit 17:47:08 CDT CPT-06226 OBGTT 1 - LAB USE ONLY 10:15:57 CDT CPT-40139 Venipuncture Draw Fee 10:15:57 CDT CPT-77717 Visit 15:07:16 EYE SPECIALIST CPT-15775 Visit 16:49:41 EYE SPECIALIST CPT-76872 Sono OB limited - XRAY USE ONLY 16:38:01 CS T CPT-38683 Sono OB comp > 14 weeks - XRAY USE ONLY 17:00:59 EYE SPECIALIST CPT-42234 UA w micro - LAB USE ONLY 16:59:38 CDT 2015 CPT-02548 TSH - LAB USE ONLY 16:59:38 CDT CPT-83547 Venipuncture Draw Fee 16:59:38 CDT CPT-27335 Spec Collection and Handling Fee 14:01:24 C DT CPT-67918 Visit 14:01:24 CDT CPT-033 KB Med Screen 14:03:18 CDT CPT-033 [facility] Med Screen 11:04:57 CDT CPT-033 KB Med Screen 10:29:44 CDT CPT-87264 Administration 2+ single or combination vaccines inc oral 14:02:47 EYE SPECIALIST CPT-50081 Administration single or combination vac cine inc oral 14:02:47 EYE SPECIALIST CPT-27396 Hepatitis A ped/adol 2 dose schedule 14:02:47 EYE SPECIALIST CPT-27643 Gardasil 14:02:47 EYE SPECIALIST CPT-89215 Administration single or combination vac cine inc oral 11:40:38 EYE SPECIALIST CPT-87210 Gardasil 11:40:38 EYE SPECIALIST CPT-88280 Administration single or combination vac cine inc oral 09:45:00 CDT CPT-97392 Influenza Preservative Free split virus >age 3 09:45:00 CDT CPT-81229 Venipuncture Draw Fee 07:59:02 CDT
--- OUTSIDE RECORDS SUMMARY | 2019-10-10 20:36 | XMS REPORT | Clinical Summary ---
Author Author Admin, Son Chan Organization [employer] Address Unknown Phone Unavailable Allergies, Adverse Reactions, [...] LATUDA 20 MG ORAL TABS LURASIDONE HCL 8256416 0230 Active Breanne Madl HAND MEAT SALTER Active CEPHALEXIN 500 MG ORAL CAPS CEPHALEXIN 864374 63682 Active Breanne Madl HAND MEAT SALTER Active LORATADINE 10 MG TABS 1 tablet by mouth daily L ORATADINE 29414717186 No Longer Active Breanne Madl HAND MEAT SALTER Active HYDROXYZINE HCL 25 MG TABS Take 1-2 tablets daily 2015 HYDROXYZINE HCL 95586002171 No Longer Active Breanne Madl HAND MEAT SALTER Active ORTHO TRI-CYCLEN (28) 0.18/0.215/0.25 MG-35 MCG TABS 1 daily NORGESTIM-ETH ESTRAD TRIPHASIC 67148194699 No Longer Active Breanne Madl HAND MEAT SALTER Active CLARITIN 10 MG TAB 1 tablet by mouth daily as needed for itchy r khari LORATADINE 55821982192 No Longer Active Ned Navarrete MD Active AUGMENTIN 875-125 MG TAB 1 po BID x 10 days with food AMOXICILLIN-POT CLAVULANATE 66580303108 No Longer Active Toni Washington DO Active ORTHO TRI-CYCLEN (28) 0.18/0.215/0.25 MG-35 MCG TABS 1 daily NORGESTIM-ETH ESTRAD TRIPHASIC 22251964059 No Longer Active Ned Navarrete MD Active ZOFRAN ODT 4 MG TBDP 1 po q6hr PRN Nausea ONDAN SETRON 91975277602 No Longer Active Ned Navarrete MD Active [facility] MEL[facility] 3 MG TABS Take 1 tablet at bedtime. 2013 MELATONIN 06478906219 No Longer Active Ned Navarrete MD Activ e BIOTIN 1000 MCG TABS Take 2 tablets daily BIOTI N 44917724860 No Longer Active Ned Navarrete MD Active OMEPRAZOLE 20 MG CPDR 1 tablet by mouth daily O MEPRAZOLE 20802120495 No Longer Active Mariana Moses APRN Active LATUDA 80 MG TABS 1 tablet daily LURASIDONE HCL 96876886206 No Longer Active Mariana Moses APRN Active ZOVIRAX 400 MG TABS Take 1 tablet every 8 hours as needed 2 ACYCLOVIR 06973170855 No Longer Active Ned Navarrete MD Activ e ZITHROMAX Z-CHACE 250 MG TABS 2 today, then 1 daily for 4 days 201 10/06/11 AZITHROMYCIN 67001687071 No Longer Active Ned Navarrete MD Active TOPAMAX 100 MG TABS 1 tablet daily TOPIRAMATE 54 797758119 No Longer Active Ned Navarrete MD Active AMOXICILLIN 500 MG CAPS 2 po BID x 10 days AMOX ICILLIN 67639673773 No Longer Active Saskia Simon MD PhD Active NAPROSYN 375 MG TAB 1 twice a day as needed for chest pain 04/01 NAPROXEN 99589602241 No Longer Active aSskia Simon MD PhD Active HYDROCORTISONE 2.5 % EXT CREA Apply three times a day to aff ected area HYDROCORTISONE 65038431628 No Longer Active Ned Navarrete MD Active TOPIRAMATE 50 MG TABS 1 QD TOPIRAMATE 01298688150 No Longer Active Ned Navarrete MD Active FANAPT 6 MG TABS 1 BID ILOPERIDONE 45892455277 No L onger Active Ned Navarrete MD Active CIPROFLOXACIN HCL 0.3 % SOLN 1 drop in right eye every 2 hours for 2 days, then 1 drop four times a day CIPROFLOXACIN HCL 37420377069 No Longer Active Ned Navarrete MD Active LORATADINE 10 MG TABS 1 tablet by mouth daily L ORATADINE 62979975304 No Longer Active Ned Navarrete MD Active RANITIDINE HCL 150 MG CAPS 1 twice a day RANITI DINE HCL 87429866274 No Longer Active Ned Navarrete MD Active RANITIDINE HCL 150 MG CAPS 1 twice a day RANITIDINE HCL 150 MG CAPS 855353 RANITIDINE HCL Inactive LORATADINE 10 MG TABS 1 tablet by mouth daily LORATADINE 10 MG TABS 756174 LORATADINE Inactive CIPROFLOXACIN HCL 0.3 % SOLN 1 drop in right eye every 2 hours for 2 days, then 1 drop four times a day CIPROFLOXACIN HCL 0.3 % SOLN 247032 CIPROFLOXACIN HCL Inactive FANAPT 6 MG TABS 1 BID FANAPT 6 MG TABS ILO PERIDONE Inactive TOPIRAMATE 50 MG TABS 1 QD TOPIRAMATE 50 MG TABS 1 86867 TOPIRAMATE Inactive HYDROCORTISONE 2.5 % EXT CREA Apply three times a day to aff ected area HYDROCORTISONE 2.5 % EXT CREA 727636 HYDROCORTIS ONE Inactive NAPROSYN 375 MG TAB 1 twice a day as needed for chest pain 04/01 NAPROSYN 375 MG TAB NAPROXEN Inactive TOPAMAX 100 MG TABS 1 tablet daily TOPAMAX 100 MG TABS 323090 TOPIRAMATE Inactive ZOVIRAX 400 MG TABS Take 1 tablet every 8 hours as needed ZOVIRAX 400 MG TABS 617451 ACYCLOVIR Inactive LATUDA 80 MG TABS 1 tablet daily LATUDA 80 MG TA BS LURASIDONE HCL Inactive OMEPRAZOLE 20 MG CPDR 1 tablet by mouth daily OMEPRAZOLE 20 MG CPDR 113246 OMEPRAZOLE Inactive BIOTIN 1000 MCG TABS Take 2 tablets daily BIOTIN 1000 MCG TABS 632002 BIOTIN Inactive [facility] 3 MG TABS Take 1 tablet at bedtime. 2013 [facility] M[facility] 3 MG TABS 979892 MELATONIN Inactive ZOFRAN ODT 4 MG TBDP 1 po q6hr PRN Nausea ZOFRAN ODT 4 MG TBDP 804907 ONDANSETRON Inactive ORTHO TRI-CYCLEN (28) 0.18/0.215/0.25 MG-35 MCG TABS 1 daily ORTHO TRI-CYCLEN (28) 0.18/0.215/0.25 MG-35 MCG TABS 101068 NORGESTIM-ETH ESTRAD TRIPHASIC Inactive CLARITIN 10 MG TAB 1 tablet by mouth daily as needed for itchy r khari CLARITIN 10 MG TAB 674874 LORATADINE Inactive ORTHO TRI-CYCLEN (28) 0.18/0.215/0.25 MG-35 MCG TABS 1 daily ORTHO TRI-CYCLEN (28) 0.18/0.215/0.25 MG-35 MCG TABS 610449 NORGESTIM-ETH ESTRAD TRIPHASIC Inactive HYDROXYZINE HCL 25 MG TABS Take 1-2 tablets daily 2015 HYDROXYZINE HCL 25 MG TABS 638360 HYDROXYZINE HCL Inactive LORATADINE 10 MG TABS 1 tablet by mouth daily LORATADINE 10 MG TABS 412266 LORATADINE Inactive AMOXICILLIN 500 MG CAPS 2 po BID x 10 days AMOXICILLIN 500 MG CAPS 450554 AMOXICILLIN Inactive ZITHROMAX Z-CHACE 250 MG TABS 2 today, then 1 daily for 4 days 201 10/06/11 ZITHROMAX Z-CHACE 250 MG TABS 4045769 AZITHROMYCIN Inac tive AUGMENTIN 875-125 MG TAB 1 po BID x 10 days with food AUGMENTIN 875-125 MG TAB 372370 AMOXICILLIN-POT CLAVULANATE Inactiv e Advance Directives Directive [...] 18 yo)) Fluzone preservative free (>3 yrs.) [PLR298] Influenza, seasonal, injectable, preservative free MPSV4 (meningococcal polysaccharide vaccination) Menactra meningococcal polysaccharide vaccine (MPSV4) hepatitis A immunization #1 Havrix-Pedi hepa titis A vaccine, unspecified formulation Adacel (Tetanus, reduced Diphtheria, and acellular Per tussis Immunization) Adacel [LZK292] tetanus toxoid, reduced diph theria toxoid, and [...] 5.0-8.5 Encounters Code Encounter Date Provider Facility CPT-84066 Level 2 Est. Patient 12:43:40 CDT Ned Navarrete MD [facility]-26975 Level 3 Est. Patient 14:38:48 CDT Toni duque DO [facility]-41301 Level 3 Est. Patient 09:02:58 GRAPHIC PRODUCTION ARTIST George paulson MD [facility]-99623 Level 3 Est. Patient 17:42:32 CDT Ned Navarrete MD [facility]-94599 Level 3 Est. Patient 11:04:31 GRAPHIC PRODUCTION ARTIST Mariana Torrez APRN [facility]-64613 Level 4 Est. Patient 12:27:05 GRAPHIC PRODUCTION ARTIST Ned Navarrete MD [facility]-24585 Level 3 Est. Patient 11:31:58 GRAPHIC PRODUCTION ARTIST Ned Navarrete MD [facility]-61181 Level 3 Est. Patient 16:49:32 CDT Ned Navarrete MD [facility]-05564 Level 4 Est. Patient 14:11:59 GRAPHIC PRODUCTION ARTIST Saskia green MD PhD [facility]-03718 Level 3 Est. Patient 17:34:25 CDT Ned Navarrete MD [facility]-83750 Level 3 Est. Patient 17:34:19 CDT Ned Navarrete MD [facility]88981 Level 3 Est. Patient 13:46:05 CDT Ned Naavrrete MD [facility]-79542 Level 3 Est. Patient 16:55:47 GRAPHIC PRODUCTION ARTIST Ned Navarrete MD [facility] CPT-34622 Level 2 Est. Patient 17:33:08 GRAPHIC PRODUCTION ARTIST Ned Navarrete MD [facility] CPT-12401 Level 3 Est. Patient 16:25:26 GRAPHIC PRODUCTION ARTIST Ned Navarrete MD [facility] Procedures Code Procedure Name Date Entry Date Standard Desc ription CPT-02789 UA w micro - LAB USE ONLY 16:59:38 CDT 2015 CPT-41008 TSH - LAB USE ONLY 16:59:38 CDT CPT-14181 Venipuncture Draw Fee 16:59:38 CDT CPT-51093 Spec Collection and Handling Fee 14:01:24 C DT CPT-06864 Visit 14:01:24 CDT CPT-033 KB Med Screen 14:03:18 CDT CPT-033 KB Med Screen 11:04:57 CDT CPT-033 KB Med Screen 10:29:44 CDT CPT-66017 Administration 2+ single or combination vaccines inc oral 14:02:47 GRAPHIC PRODUCTION ARTIST CPT-14065 Administration single or combination vac cine inc oral 14:02:47 GRAPHIC PRODUCTION ARTIST CPT-17700 Hepatitis A ped/adol 2 dose schedule 14:02:47 GRAPHIC PRODUCTION ARTIST CPT-99012 Gardasil 14:02:47 GRAPHIC PRODUCTION ARTIST CPT-09032 Administration single or combination vac cine inc oral 11:40:38 GRAPHIC PRODUCTION ARTIST CPT-41946 Gardasil 11:40:38 GRAPHIC PRODUCTION ARTIST CPT-28074 Administration single or combination vac cine inc oral 09:45:00 CDT CPT-52853 Influenza Preservative Free split virus >age 3 09:45:00 CDT CPT-64640 Venipuncture Draw Fee 07:59:02 CDT
--- OUTSIDE RECORDS SUMMARY | 2019-10-10 20:36 | XMS REPORT | Clinical Summary ---
Author Author Admin, Son Chan Organization [employer] Address Unknown Phone Unavailable Allergies, Adverse Reactions, [...] herpes, unspecified Pharyngitis, acute 462 Resolved Ned mnaley MD Acute pharyngitis Epigastric pain 789.06 Active [...] LATUDA 20 MG ORAL TABS LURASIDONE HCL 7844892 0230 Active Breanne Madl SHOE STOCK ASSOCIATE Active CEPHALEXIN 500 MG ORAL CAPS CEPHALEXIN 226000 15839 Active Breanne Madl SHOE STOCK ASSOCIATE Active LORATADINE 10 MG TABS 1 tablet by mouth daily L ORATADINE 72677331382 No Longer Active Breanne Madl SHOE STOCK ASSOCIATE Active HYDROXYZINE HCL 25 MG TABS Take 1-2 tablets daily 2015 HYDROXYZINE HCL 92962759493 No Longer Active Breanne Madl SHOE STOCK ASSOCIATE Active ORTHO TRI-CYCLEN (28) 0.18/0.215/0.25 MG-35 MCG TABS 1 daily NORGESTIM-ETH ESTRAD TRIPHASIC 30096381011 No Longer Active Breanne Madl SHOE STOCK ASSOCIATE Active CLARITIN 10 MG TAB 1 tablet by mouth daily as needed for itchy r khari LORATADINE 87350273613 No Longer Active Ned Navarrete MD Active AUGMENTIN 875-125 MG TAB 1 po BID x 10 days with food AMOXICILLIN-POT CLAVULANATE 50238047270 No Longer Active Toni Washington DO Active ORTHO TRI-CYCLEN (28) 0.18/0.215/0.25 MG-35 MCG TABS 1 daily NORGESTIM-ETH ESTRAD TRIPHASIC 90540981902 No Longer Active Ned Navarrete MD Active ZOFRAN ODT 4 MG TBDP 1 po q6hr PRN Nausea ONDAN SETRON 09519507366 No Longer Active Ned Navarrete MD Active [facility]EL[facility] 3 MG TABS Take 1 tablet at bedtime. 2013 MELATONIN 10451507520 No Longer Active Ned Navarrete MD Activ e BIOTIN 1000 MCG TABS Take 2 tablets daily BIOTI N 74866874138 No Longer Active Ned Navarrete MD Active OMEPRAZOLE 20 MG CPDR 1 tablet by mouth daily O MEPRAZOLE 28560615371 No Longer Active Mariana Moses APRN Active LATUDA 80 MG TABS 1 tablet daily LURASIDONE HCL 35594584619 No Longer Active Mariana Moses APRN Active ZOVIRAX 400 MG TABS Take 1 tablet every 8 hours as needed 2 ACYCLOVIR 69906913859 No Longer Active Ned Navarrete MD Activ e ZITHROMAX Z-CHACE 250 MG TABS 2 today, then 1 daily for 4 days 201 10/06/11 AZITHROMYCIN 46492184432 No Longer Active Ned Navarrete MD Active TOPAMAX 100 MG TABS 1 tablet daily TOPIRAMATE 54 485182774 No Longer Active Ned Navarrete MD Active AMOXICILLIN 500 MG CAPS 2 po BID x 10 days AMOX ICILLIN 45728140088 No Longer Active Saskia Simon MD PhD Active NAPROSYN 375 MG TAB 1 twice a day as needed for chest pain 04/01 NAPROXEN 18829405388 No Longer Active Saskia Simon MD PhD Active HYDROCORTISONE 2.5 % EXT CREA Apply three times a day to aff ected area HYDROCORTISONE 38199350564 No Longer Active Ned Navarrete MD Active TOPIRAMATE 50 MG TABS 1 QD TOPIRAMATE 30424373613 No Longer Active Ned Navarrete MD Active FANAPT 6 MG TABS 1 BID ILOPERIDONE 19913642046 No L onger Active Ned Navarrete MD Active CIPROFLOXACIN HCL 0.3 % SOLN 1 drop in right eye every 2 hours for 2 days, then 1 drop four times a day CIPROFLOXACIN HCL 54260686575 No Longer Active Ned Navarrete MD Active LORATADINE 10 MG TABS 1 tablet by mouth daily L ORATADINE 98563248831 No Longer Active Ned Navarrete MD Active RANITIDINE HCL 150 MG CAPS 1 twice a day RANITI DINE HCL 26431406575 No Longer Active Ned Navarrete MD Active RANITIDINE HCL 150 MG CAPS 1 twice a day RANITIDINE HCL 150 MG CAPS 472303 RANITIDINE HCL Inactive LORATADINE 10 MG TABS 1 tablet by mouth daily LORATADINE 10 MG TABS 526955 LORATADINE Inactive CIPROFLOXACIN HCL 0.3 % SOLN 1 drop in right eye every 2 hours for 2 days, then 1 drop four times a day CIPROFLOXACIN HCL 0.3 % SOLN 194550 CIPROFLOXACIN HCL Inactive FANAPT 6 MG TABS 1 BID FANAPT 6 MG TABS ILO PERIDONE Inactive TOPIRAMATE 50 MG TABS 1 QD TOPIRAMATE 50 MG TABS 1 52031 TOPIRAMATE Inactive HYDROCORTISONE 2.5 % EXT CREA Apply three times a day to aff ected area HYDROCORTISONE 2.5 % EXT CREA 743302 HYDROCORTIS ONE Inactive NAPROSYN 375 MG TAB 1 twice a day as needed for chest pain 04/01 NAPROSYN 375 MG TAB NAPROXEN Inactive TOPAMAX 100 MG TABS 1 tablet daily TOPAMAX 100 MG TABS 746168 TOPIRAMATE Inactive ZOVIRAX 400 MG TABS Take 1 tablet every 8 hours as needed ZOVIRAX 400 MG TABS 583712 ACYCLOVIR Inactive LATUDA 80 MG TABS 1 tablet daily LATUDA 80 MG TA BS LURASIDONE HCL Inactive OMEPRAZOLE 20 MG CPDR 1 tablet by mouth daily OMEPRAZOLE 20 MG CPDR 647966 OMEPRAZOLE Inactive BIOTIN 1000 MCG TABS Take 2 tablets daily BIOTIN 1000 MCG TABS 193950 BIOTIN Inactive [facility] M[facility] 3 MG TABS Take 1 tablet at bedtime. 2013 [facility] MEL[facility] 3 MG TABS 389671 MELATONIN Inactive ZOFRAN ODT 4 MG TBDP 1 po q6hr PRN Nausea ZOFRAN ODT 4 MG TBDP 314412 ONDANSETRON Inactive ORTHO TRI-CYCLEN (28) 0.18/0.215/0.25 MG-35 MCG TABS 1 daily ORTHO TRI-CYCLEN (28) 0.18/0.215/0.25 MG-35 MCG TABS 153576 NORGESTIM-ETH ESTRAD TRIPHASIC Inactive CLARITIN 10 MG TAB 1 tablet by mouth daily as needed for itchy r khari CLARITIN 10 MG TAB 940657 LORATADINE Inactive ORTHO TRI-CYCLEN (28) 0.18/0.215/0.25 MG-35 MCG TABS 1 daily ORTHO TRI-CYCLEN (28) 0.18/0.215/0.25 MG-35 MCG TABS 582682 NORGESTIM-ETH ESTRAD TRIPHASIC Inactive HYDROXYZINE HCL 25 MG TABS Take 1-2 tablets daily 2015 HYDROXYZINE HCL 25 MG TABS 460759 HYDROXYZINE HCL Inactive LORATADINE 10 MG TABS 1 tablet by mouth daily LORATADINE 10 MG TABS 412822 LORATADINE Inactive AMOXICILLIN 500 MG CAPS 2 po BID x 10 days AMOXICILLIN 500 MG CAPS 016065 AMOXICILLIN Inactive ZITHROMAX Z-CHACE 250 MG TABS 2 today, then 1 daily for 4 days 201 10/06/11 ZITHROMAX Z-CHACE 250 MG TABS 0777659 AZITHROMYCIN Inac tive AUGMENTIN 875-125 MG TAB 1 po BID x 10 days with food AUGMENTIN 875-125 MG TAB 088437 AMOXICILLIN-POT CLAVULANATE Inactiv e Advance Directives Directive [...] 18 yo)) Fluzone preservative free (>3 yrs.) [[id number]] Influenza, seasonal, injectable, preservative free MPSV4 (meningococcal polysaccharide vaccination) Menactra meningococcal polysaccharide vaccine (MPSV4) hepatitis A immunization #1 Havrix-Pedi hepa titis A vaccine, unspecified formulation Adacel (Tetanus, reduced Diphtheria, and acellular Per tussis Immunization) Adacel [[id number]] tetanus toxoid, reduced diph theria toxoid, and [...] Measured Encounters Code Encounter Date Provider Facility CPT-96481 Level 2 Est. Patient 12:43:40 CDT Ned Navarrete MD [facility] CPT-76652 Level 3 Est. Patient 14:38:48 CDT Toni duque DO [facility] CPT-90967 Level 3 Est. Patient 09:02:58 HYDROELECTRIC PLANT STRUCTURAL ENGINEER George paulson MD [facility] CPT-20145 Level 3 Est. Patient 17:42:32 CDT Ned Navarrete MD [facility] CPT-04637 Level 3 Est. Patient 11:04:31 HYDROELECTRIC PLANT STRUCTURAL ENGINEER Mariana Torrez APRN [facility] CPT-13658 Level 4 Est. Patient 12:27:05 HYDROELECTRIC PLANT STRUCTURAL ENGINEER Ned Navarrete MD [facility] CPT-38240 Level 3 Est. Patient 11:31:58 HYDROELECTRIC PLANT STRUCTURAL ENGINEER Ned Navarrete MD [facility] CPT-09213 Level 3 Est. Patient 16:49:32 CDT Ned Navarrete MD [facility] CPT-09244 Level 4 Est. Patient 14:11:59 HYDROELECTRIC PLANT STRUCTURAL ENGINEER Saskia green MD PhD [facility] CPT-93878 Level 3 Est. Patient 17:34:25 CDT Ned Navarrete MD [facility] CPT-02153 Level 3 Est. Patient 17:34:19 CDT Ned Navarrete MD [facility] CPT-33266 Level 3 Est. Patient 13:46:05 CDT Ned Navarrete MD [facility] CPT-42246 Level 3 Est. Patient 16:55:47 HYDROELECTRIC PLANT STRUCTURAL ENGINEER Ned Navarrete MD [facility] CPT-91569 Level 2 Est. Patient 17:33:08 HYDROELECTRIC PLANT STRUCTURAL ENGINEER Ned Navarrete MD [facility] CPT-46312 Level 3 Est. Patient 16:25:26 HYDROELECTRIC PLANT STRUCTURAL ENGINEER Ned Navarrete MD [facility] Procedures Code Procedure Name Date Entry Date Standard Desc ription CPT-033 [facility] Med Screen 14:03:18 CDT CPT-033 [facility] Med Screen 11:04:57 CDT CPT-033 [facility] Med Screen 10:29:44 CDT CPT-86513 Administration 2+ single or combination vaccines inc oral 14:02:47 HYDROELECTRIC PLANT STRUCTURAL ENGINEER CPT-81538 Administration single or combination vac cine inc oral 14:02:47 HYDROELECTRIC PLANT STRUCTURAL ENGINEER CPT-33402 Hepatitis A ped/adol 2 dose schedule 14:02:47 HYDROELECTRIC PLANT STRUCTURAL ENGINEER CPT-73435 Gardasil 14:02:47 HYDROELECTRIC PLANT STRUCTURAL ENGINEER CPT-38903 Administration single or combination vac cine inc oral 11:40:38 HYDROELECTRIC PLANT STRUCTURAL ENGINEER CPT-75647 Gardasil 11:40:38 HYDROELECTRIC PLANT STRUCTURAL ENGINEER CPT-38515 Administration single or combination vac cine inc oral 09:45:00 CDT CPT-71429 Influenza Preservative Free split virus >age 3 09:45:00 CDT CPT-64534 Venipuncture Draw Fee 07:59:02 CDT
--- OUTSIDE RECORDS SUMMARY | 2019-10-10 20:37 | XMS REPORT | Clinical Summary ---
Author Author Admin, Son Chan Organization [employer] Address Unknown Phone Unavailable Allergies, Adverse Reactions, [...] 1 herman ly for 3 days PREDNISONE 25486446388 No Longer Active Ned pérez MD Active CEPHALEXIN 500 MG ORAL CAPS CEPHALEXIN 49899833922 No Longer Active Ned Navarrete MD Active LATUDA 20 MG ORAL TABS LURASIDONE HCL 0008190 0230 Active Breanne Madl CABLE INSTALLATION TECHNICIAN Active LORATADINE 10 MG TABS 1 tablet by mouth daily L ORATADINE 29168063242 No Longer Active Breanne Madl CABLE INSTALLATION TECHNICIAN Active HYDROXYZINE HCL 25 MG TABS Take 1-2 tablets daily 2015 HYDROXYZINE HCL 80702881846 No Longer Active Breanne Madl CABLE INSTALLATION TECHNICIAN Active ORTHO TRI-CYCLEN (28) 0.18/0.215/0.25 MG-35 MCG TABS 1 daily NORGESTIM-ETH ESTRAD TRIPHASIC 26160181557 No Longer Active Breanne Madl CABLE INSTALLATION TECHNICIAN Active CLARITIN 10 MG TAB 1 tablet by mouth daily as needed for itchy r khari LORATADINE 47137198641 No Longer Active Ned Navarrete MD Active AUGMENTIN 875-125 MG TAB 1 po BID x 10 days with food AMOXICILLIN-POT CLAVULANATE 63143487365 No Longer Active Toni Washington DO Active ORTHO TRI-CYCLEN (28) 0.18/0.215/0.25 MG-35 MCG TABS 1 daily NORGESTIM-ETH ESTRAD TRIPHASIC 63680637619 No Longer Active Ned Navarrete MD Active ZOFRAN ODT 4 MG TBDP 1 po q6hr PRN Nausea ONDAN SETRON 54721095803 No Longer Active Ned Navarrete MD Active [facility] MEL[facility] 3 MG TABS Take 1 tablet at bedtime. 2013 MELATONIN 61393825986 No Longer Active Ned Navarrete MD Activ e BIOTIN 1000 MCG TABS Take 2 tablets daily BIOTI N 59143697360 No Longer Active Ned Navarrete MD Active OMEPRAZOLE 20 MG CPDR 1 tablet by mouth daily O MEPRAZOLE 43629958991 No Longer Active Mariana Moses APRN Active LATUDA 80 MG TABS 1 tablet daily LURASIDONE HCL 04823420312 No Longer Active Mariana Moses APRN Active ZOVIRAX 400 MG TABS Take 1 tablet every 8 hours as needed 2 ACYCLOVIR 59725085119 No Longer Active Ned Navarrete MD Activ e ZITHROMAX Z-CHACE 250 MG TABS 2 today, then 1 daily for 4 days 201 10/06/11 AZITHROMYCIN 28398385626 No Longer Active Ned Navarrete MD Active TOPAMAX 100 MG TABS 1 tablet daily TOPIRAMATE 54 759606141 No Longer Active Ned Navarrete MD Active AMOXICILLIN 500 MG CAPS 2 po BID x 10 days AMOX ICILLIN 58973831691 No Longer Active Saskia Simon MD PhD Active NAPROSYN 375 MG TAB 1 twice a day as needed for chest pain 04/01 NAPROXEN 14605967910 No Longer Active Saskia Simon MD PhD Active HYDROCORTISONE 2.5 % EXT CREA Apply three times a day to aff ected area HYDROCORTISONE 55348089022 No Longer Active Ned Navarrete MD Active TOPIRAMATE 50 MG TABS 1 QD TOPIRAMATE 78909720824 No Longer Active Ned Navarrete MD Active FANAPT 6 MG TABS 1 BID ILOPERIDONE 69027241152 No L onger Active Ned Navarrete MD Active CIPROFLOXACIN HCL 0.3 % SOLN 1 drop in right eye every 2 hours for 2 days, then 1 drop four times a day CIPROFLOXACIN HCL 65831378409 No Longer Active Ned Navarrete MD Active LORATADINE 10 MG TABS 1 tablet by mouth daily L ORATADINE 87841169543 No Longer Active Ned Navarrete MD Active RANITIDINE HCL 150 MG CAPS 1 twice a day RANITI DINE HCL 32400359178 No Longer Active Ned Navarrete MD Active RANITIDINE HCL 150 MG CAPS 1 twice a day RANITIDINE HCL 150 MG CAPS 972209 RANITIDINE HCL Inactive LORATADINE 10 MG TABS 1 tablet by mouth daily LORATADINE 10 MG TABS 986907 LORATADINE Inactive CIPROFLOXACIN HCL 0.3 % SOLN 1 drop in right eye every 2 hours for 2 days, then 1 drop four times a day CIPROFLOXACIN HCL 0.3 % SOLN 525451 CIPROFLOXACIN HCL Inactive FANAPT 6 MG TABS 1 BID FANAPT 6 MG TABS ILO PERIDONE Inactive TOPIRAMATE 50 MG TABS 1 QD TOPIRAMATE 50 MG TABS 1 55822 TOPIRAMATE Inactive HYDROCORTISONE 2.5 % EXT CREA Apply three times a day to aff ected area HYDROCORTISONE 2.5 % EXT CREA 788143 HYDROCORTIS ONE Inactive NAPROSYN 375 MG TAB 1 twice a day as needed for chest pain 04/01 NAPROSYN 375 MG TAB NAPROXEN Inactive TOPAMAX 100 MG TABS 1 tablet daily TOPAMAX 100 MG TABS 845158 TOPIRAMATE Inactive ZOVIRAX 400 MG TABS Take 1 tablet every 8 hours as needed 2 ZOVIRAX 400 MG TABS 761129 ACYCLOVIR Inactive LATUDA 80 MG TABS 1 tablet daily LATUDA 80 MG TA BS LURASIDONE HCL Inactive OMEPRAZOLE 20 MG CPDR 1 tablet by mouth daily OMEPRAZOLE 20 MG CPDR 062340 OMEPRAZOLE Inactive BIOTIN 1000 MCG TABS Take 2 tablets daily BIOTIN 1000 MCG TABS 300534 BIOTIN Inactive [facility] 3 MG TABS Take 1 tablet at bedtime. 2013 [facility] M[facility] 3 MG TABS 235950 MELATONIN Inactive ZOFRAN ODT 4 MG TBDP 1 po q6hr PRN Nausea ZOFRAN ODT 4 MG TBDP 560792 ONDANSETRON Inactive ORTHO TRI-CYCLEN (28) 0.18/0.215/0.25 MG-35 MCG TABS 1 daily ORTHO TRI-CYCLEN (28) 0.18/0.215/0.25 MG-35 MCG TABS 311980 NORGESTIM-ETH ESTRAD TRIPHASIC Inactive CLARITIN 10 MG TAB 1 tablet by mouth daily as needed for itchy r khari CLARITIN 10 MG TAB 434227 LORATADINE Inactive ORTHO TRI-CYCLEN (28) 0.18/0.215/0.25 MG-35 MCG TABS 1 daily ORTHO TRI-CYCLEN (28) 0.18/0.215/0.25 MG-35 MCG TABS 804742 NORGESTIM-ETH ESTRAD TRIPHASIC Inactive HYDROXYZINE HCL 25 MG TABS Take 1-2 tablets daily 2015 HYDROXYZINE HCL 25 MG TABS 685349 HYDROXYZINE HCL Inactive LORATADINE 10 MG TABS 1 tablet by mouth daily LORATADINE 10 MG TABS 136705 LORATADINE Inactive CEPHALEXIN 500 MG ORAL CAPS CEPHALEX IN 500 MG ORAL CAPS 034894 CEPHALEXIN Inactive PREDNISONE 20 MG TABS Take 2 daily for 3 days and then 1 herman ly for 3 days PREDNISONE 20 MG TABS 257195 PREDNISONE Inacti ve AMOXICILLIN 500 MG CAPS 2 po BID x 10 days AMOXICILLIN 500 MG CAPS 502936 AMOXICILLIN Inactive ZITHROMAX Z-CHACE 250 MG TABS 2 today, then 1 daily for 4 days 201 10/06/11 ZITHROMAX Z-CHACE 250 MG TABS 6100806 AZITHROMYCIN Inac tive AUGMENTIN 875-125 MG TAB 1 po BID x 10 days with food AUGMENTIN 875-125 MG TAB 359441 AMOXICILLIN-POT CLAVULANATE Inactiv e Advance Directives Directive [...] 16 yo)) Fluzone preservative free (>3 yrs.) [[id number]] Influenza, seasonal, injectable, preservative free MPSV4 (meningococcal polysaccharide vaccination) Menactra meningococcal polysaccharide vaccine (MPSV4) hepatitis A immunization #1 Havrix-Pedi hepa titis A vaccine, unspecified formulation Adacel (Tetanus, reduced Diphtheria, and acellular Per tussis Immunization) Adacel [[id number]] tetanus toxoid, reduced diph theria toxoid, and [...] 11 .0-15.0 platelet count 210 THOUSAND/UL 10*3/mm3 276-768 3886/11/02 mean platelet volume 10.3 fL 7.5-11.5 Lab [...] N Encounters Code Encounter Date Provider Facility CPT-23423 Level 3 Est. Patient 15:21:38 GREETING CARD WRITER Rayna Pepper [facility] CPT-04870 Level 3 Est. Patient 15:35:51 GREETING CARD WRITER Ned Navarrete MD [facility]-49661 Level 2 Est. Patient 12:43:40 CDT Ned Navarreet MD [facility]-19966 Level 3 Est. Patient 14:38:48 CDT Toni duque [facility] CPT-52435 Level 3 Est. Patient 09:02:58 GREETING CARD WRITER George paulson MD [facility] CPT-76152 Level 3 Est. Patient 17:42:32 CDT Ned Navarrete MD [facility]-85225 Level 3 Est. Patient 11:04:31 GREETING CARD WRITER Mariana Torrez [facility] CPT-62206 Level 4 Est. Patient 12:27:05 GREETING CARD WRITER Ned Navarrete MD [facility] CPT-97306 Level 3 Est. Patient 11:31:58 GREETING CARD WRITER Ned Navarrete MD [facility]-34938 Level 3 Est. Patient 16:49:32 CDT Ned Navarrete MD [facility]-25638 Level 4 Est. Patient 14:11:59 GREETING CARD WRITER Saskia green MD PhD [facility] CPT-45239 Level 3 Est. Patient 17:34:25 CDT Ned Navarrete MD [facility] CPT-62725 Level 3 Est. Patient 17:34:19 CDT Ned Navarrete MD [facility]-34234 Level 3 Est. Patient 13:46:05 CDT Ned Navarrete MD [facility]-49091 Level 3 Est. Patient 16:55:47 GREETING CARD WRITER Ned Navarrete MD [facility]-55209 Level 2 Est. Patient 17:33:08 GREETING CARD WRITER Ned Navarrete MD [facility] CPT-27092 Level 3 Est. Patient 16:25:26 GREETING CARD WRITER Ned Navarrete MD [facility] Procedures Code Procedure Name Date Entry Date Standard Desc ription CPT-35732 Visit 17:47:08 CDT CPT-66986 OBGTT 1 - LAB USE ONLY 10:15:57 CDT CPT-69340 Venipuncture Draw Fee 10:15:57 CDT CPT-99858 Visit 15:07:16 GREETING CARD WRITER CPT-79977 Visit 16:49:41 GREETING CARD WRITER CPT-04459 Sono OB limited - XRAY USE ONLY 16:38:01 CS T CPT-54280 Sono OB comp > 14 weeks - XRAY USE ONLY 17:00:59 GREETING CARD WRITER CPT-43857 UA w micro - LAB USE ONLY 16:59:38 CDT 2015 CPT-21804 TSH - LAB USE ONLY 16:59:38 CDT CPT-91485 Venipuncture Draw Fee 16:59:38 CDT CPT-00485 Spec Collection and Handling Fee 14:01:24 C DT CPT-81998 Visit 14:01:24 CDT CPT-033 [facility] Med Screen 14:03:18 CDT CPT-033 [facility] Med Screen 11:04:57 CDT CPT-033 [facility] Med Screen 10:29:44 CDT CPT-62428 Administration 2+ single or combination vaccines inc oral 14:02:47 GREETING CARD WRITER CPT-14796 Administration single or combination vac cine inc oral 14:02:47 GREETING CARD WRITER CPT-18979 Hepatitis A ped/adol 2 dose schedule 14:02:47 GREETING CARD WRITER CPT-88392 Gardasil 14:02:47 GREETING CARD WRITER CPT-62847 Administration single or combination vac cine inc oral 11:40:38 GREETING CARD WRITER CPT-46560 Gardasil 11:40:38 GREETING CARD WRITER CPT-52922 Administration single or combination vac cine inc oral 09:45:00 CDT CPT-87598 Influenza Preservative Free split virus >age 3 09:45:00 CDT CPT-29735 Venipuncture Draw Fee 07:59:02 CDT
--- OUTSIDE RECORDS SUMMARY | 2019-10-10 20:37 | XMS REPORT | Clinical Summary ---
Author Author Admin, Son Rodriguez [facility] Address Unknown Phone Unavailable Allergies, [...] abuse, unspecified use WEIGHT GAIN ICD-783.1 Inactive Nde Navarrete MD NASOLACRIMAL DUCT OBSTRUCTION, LEFT ICD-375.56 [...] LATUDA 20 MG ORAL TABS LURASIDONE HCL 4771706 0230 Active Breanne Madl DIGITAL SALES EXECUTIVE Active CEPHALEXIN 500 MG ORAL CAPS CEPHALEXIN 880526 39156 Active Breanne Madl DIGITAL SALES EXECUTIVE Active LORATADINE 10 MG TABS 1 tablet by mouth daily L ORATADINE 98054371441 No Longer Active Breanne Madl DIGITAL SALES EXECUTIVE Active HYDROXYZINE HCL 25 MG TABS Take 1-2 tablets daily 2015 HYDROXYZINE HCL 95897802996 No Longer Active Breanne Madl DIGITAL SALES EXECUTIVE Active ORTHO TRI-CYCLEN (28) 0.18/0.215/0.25 MG-35 MCG TABS 1 daily NORGESTIM-ETH ESTRAD TRIPHASIC 86484808344 No Longer Active Breanne Madl DIGITAL SALES EXECUTIVE Active CLARITIN 10 MG TAB 1 tablet by mouth daily as needed for itchy r khari LORATADINE 49780879642 No Longer Active Ned Navarrete MD Active AUGMENTIN 875-125 MG TAB 1 po BID x 10 days with food AMOXICILLIN-POT CLAVULANATE 17204973962 No Longer Active Toni Washington DO Active ORTHO TRI-CYCLEN (28) 0.18/0.215/0.25 MG-35 MCG TABS 1 daily NORGESTIM-ETH ESTRAD TRIPHASIC 65842354405 No Longer Active Ned Navarrete MD Active ZOFRAN ODT 4 MG TBDP 1 po q6hr PRN Nausea ONDAN SETRON 52661348764 No Longer Active Ned Navarrete MD Active [facility] MEL[facility] 3 MG TABS Take 1 tablet at bedtime. 2013 MELATONIN 52039187479 No Longer Active Ned Navarrete MD Activ e BIOTIN 1000 MCG TABS Take 2 tablets daily BIOTI N 11672931216 No Longer Active Ned Navarrete MD Active OMEPRAZOLE 20 MG CPDR 1 tablet by mouth daily O MEPRAZOLE 35617471949 No Longer Active Mariana Josué PATIENT ACCOUNTING REPRESENTATIVE Active LATUDA 80 MG TABS 1 tablet daily LURASIDONE HCL 63528323391 No Longer Active Mariana Moses APRN Active ZOVIRAX 400 MG TABS Take 1 tablet every 8 hours as needed 2 ACYCLOVIR 62250021838 No Longer Active Ned Navarrete MD Activ e ZITHROMAX Z-CHACE 250 MG TABS 2 today, then 1 daily for 4 days 201 10/06/11 AZITHROMYCIN 50809722580 No Longer Active Ned Navarrete MD Active TOPAMAX 100 MG TABS 1 tablet daily TOPIRAMATE 54 284831632 No Longer Active Ned Navarrete MD Active AMOXICILLIN 500 MG CAPS 2 po BID x 10 days AMOX ICILLIN 70025129580 No Longer Active Saskia Simon MD PhD Active NAPROSYN 375 MG TAB 1 twice a day as needed for chest pain 04/01 NAPROXEN 83188896297 No Longer Active Saskia Simon MD PhD Active HYDROCORTISONE 2.5 % EXT CREA Apply three times a day to aff ected area HYDROCORTISONE 22387821140 No Longer Active Ned Navarrete MD Active TOPIRAMATE 50 MG TABS 1 QD TOPIRAMATE 84377498290 No Longer Active Ned Navarrete MD Active FANAPT 6 MG TABS 1 BID ILOPERIDONE 20225151954 No L onger Active Ned Navarrete MD Active CIPROFLOXACIN HCL 0.3 % SOLN 1 drop in right eye every 2 hours for 2 days, then 1 drop four times a day CIPROFLOXACIN HCL 78238771745 No Longer Active Ned Navarrete MD Active LORATADINE 10 MG TABS 1 tablet by mouth daily L ORATADINE 01646930888 No Longer Active Ned Navarrete MD Active RANITIDINE HCL 150 MG CAPS 1 twice a day RANITI DINE HCL 74479234324 No Longer Active Ned Navarrete MD Active RANITIDINE HCL 150 MG CAPS 1 twice a day RANITIDINE HCL 150 MG CAPS 663770 RANITIDINE HCL Inactive LORATADINE 10 MG TABS 1 tablet by mouth daily LORATADINE 10 MG TABS 473180 LORATADINE Inactive CIPROFLOXACIN HCL 0.3 % SOLN 1 drop in right eye every 2 hours for 2 days, then 1 drop four times a day CIPROFLOXACIN HCL 0.3 % SOLN 246300 CIPROFLOXACIN HCL Inactive FANAPT 6 MG TABS 1 BID FANAPT 6 MG TABS ILO PERIDONE Inactive TOPIRAMATE 50 MG TABS 1 QD TOPIRAMATE 50 MG TABS 1 64784 TOPIRAMATE Inactive HYDROCORTISONE 2.5 % EXT CREA Apply three times a day to aff ected area HYDROCORTISONE 2.5 % EXT CREA 494854 HYDROCORTIS ONE Inactive NAPROSYN 375 MG TAB 1 twice a day as needed for chest pain 04/01 NAPROSYN 375 MG TAB NAPROXEN Inactive TOPAMAX 100 MG TABS 1 tablet daily TOPAMAX 100 MG TABS 668172 TOPIRAMATE Inactive ZOVIRAX 400 MG TABS Take 1 tablet every 8 hours as needed 2 ZOVIRAX 400 MG TABS 449316 ACYCLOVIR Inactive LATUDA 80 MG TABS 1 tablet daily LATUDA 80 MG TA BS LURASIDONE HCL Inactive OMEPRAZOLE 20 MG CPDR 1 tablet by mouth daily OMEPRAZOLE 20 MG CPDR 326117 OMEPRAZOLE Inactive BIOTIN 1000 MCG TABS Take 2 tablets daily BIOTIN 1000 MCG TABS 514657 BIOTIN Inactive [facility] 3 MG TABS Take 1 tablet at bedtime. 2013 [facility] MEL[facility] 3 MG TABS 534541 MELATONIN Inactive ZOFRAN ODT 4 MG TBDP 1 po q6hr PRN Nausea ZOFRAN ODT 4 MG TBDP 787338 ONDANSETRON Inactive ORTHO TRI-CYCLEN (28) 0.18/0.215/0.25 MG-35 MCG TABS 1 daily ORTHO TRI-CYCLEN (28) 0.18/0.215/0.25 MG-35 MCG TABS 141286 NORGESTIM-ETH ESTRAD TRIPHASIC Inactive CLARITIN 10 MG TAB 1 tablet by mouth daily as needed for itchy r khari CLARITIN 10 MG TAB 683164 LORATADINE Inactive ORTHO TRI-CYCLEN (28) 0.18/0.215/0.25 MG-35 MCG TABS 1 daily ORTHO TRI-CYCLEN (28) 0.18/0.215/0.25 MG-35 MCG TABS 329433 NORGESTIM-ETH ESTRAD TRIPHASIC Inactive HYDROXYZINE HCL 25 MG TABS Take 1-2 tablets daily 2015 HYDROXYZINE HCL 25 MG TABS 934142 HYDROXYZINE HCL Inactive LORATADINE 10 MG TABS 1 tablet by mouth daily LORATADINE 10 MG TABS 402060 LORATADINE Inactive AMOXICILLIN 500 MG CAPS 2 po BID x 10 days AMOXICILLIN 500 MG CAPS 208182 AMOXICILLIN Inactive ZITHROMAX Z-CHACE 250 MG TABS 2 today, then 1 daily for 4 days 201 10/06/11 ZITHROMAX Z-CHACE 250 MG TABS 1844757 AZITHROMYCIN Inac tive AUGMENTIN 875-125 MG TAB 1 po BID x 10 days with food AUGMENTIN 875-125 MG TAB 218806 AMOXICILLIN-POT CLAVULANATE Inactiv e Advance Directives Directive [...] 18 yo)) Fluzone preservative free (>3 yrs.) [[id number]] Influenza, seasonal, injectable, preservative free MPSV4 (meningococcal polysaccharide vaccination) Menactra meningococcal polysaccharide vaccine (MPSV4) hepatitis A immunization #1 Havrix-Pedi hepa titis A vaccine, unspecified formulation Adacel (Tetanus, reduced Diphtheria, and acellular Per tussis Immunization) Adacel [[id number]] tetanus toxoid, reduced diph theria toxoid, and [...] 11 .0-15.0 platelet count 210 THOUSAND/UL 10*3/mm3 309-227 7264/11/02 mean platelet volume 10.3 fL 7.5-11.5 Lab [...] ative Encounters Code Encounter Date Provider Facility CPT-46125 Level 2 Est. Patient 12:43:40 CDT Ned Navarrete MD [facility] CPT-01202 Level 3 Est. Patient 14:38:48 CDT Toni duque DO [facility] CPT-09831 Level 3 Est. Patient 09:02:58 RANGE MANAGEMENT SPECIALIST George paulson MD [facility] CPT-96514 Level 3 Est. Patient 17:42:32 CDT Ned Navarrete MD [facility] CPT-01754 Level 3 Est. Patient 11:04:31 RANGE MANAGEMENT SPECIALIST Mariana Torrez APRN [facility] CPT-96445 Level 4 Est. Patient 12:27:05 RANGE MANAGEMENT SPECIALIST Ned Navarrete MD [facility] CPT-03576 Level 3 Est. Patient 11:31:58 RANGE MANAGEMENT SPECIALIST Ned Navarrete MD [facility] CPT-55890 Level 3 Est. Patient 16:49:32 CDT Ned Navarrete MD [facility] CPT-41041 Level 4 Est. Patient 14:11:59 RANGE MANAGEMENT SPECIALIST Saskia green MD PhD [facility] CPT-26572 Level 3 Est. Patient 17:34:25 CDT Ned Navarrete MD [facility] CPT-24875 Level 3 Est. Patient 17:34:19 CDT Ned Navarrete MD [facility] CPT-57025 Level 3 Est. Patient 13:46:05 CDT Ned Navarrete MD [facility] CPT-49920 Level 3 Est. Patient 16:55:47 RANGE MANAGEMENT SPECIALIST Ned Navarrete MD [facility] CPT-32545 Level 2 Est. Patient 17:33:08 RANGE MANAGEMENT SPECIALIST Ned Navarrete MD [facility] CPT-50963 Level 3 Est. Patient 16:25:26 RANGE MANAGEMENT SPECIALIST Ned Navarrete MD [facility] Procedures Code Procedure Name Date Entry Date Standard Desc ription CPT-17495 Visit 16:49:41 RANGE MANAGEMENT SPECIALIST CPT-10617 Sono OB limited - XRAY USE ONLY 16:38:01 CS T CPT-73076 Sono OB comp > 14 weeks - XRAY USE ONLY 17:00:59 RANGE MANAGEMENT SPECIALIST CPT-44021 UA w micro - LAB USE ONLY 16:59:38 CDT 2015 CPT-63580 TSH - LAB USE ONLY 16:59:38 CDT CPT-94477 Venipuncture Draw Fee 16:59:38 CDT CPT-60735 Spec Collection and Handling Fee 14:01:24 C DT CPT-52069 Visit 14:01:24 CDT CPT-033 [facility] Med Screen 14:03:18 CDT CPT-033 [facility] Med Screen 11:04:57 CDT CPT-033 [facility] Med Screen 10:29:44 CDT CPT-16977 Administration 2+ single or combination vaccines inc oral 14:02:47 RANGE MANAGEMENT SPECIALIST CPT-17690 Administration single or combination vac cine inc oral 14:02:47 RANGE MANAGEMENT SPECIALIST CPT-11674 Hepatitis A ped/adol 2 dose schedule 14:02:47 RANGE MANAGEMENT SPECIALIST CPT-81912 Gardasil 14:02:47 RANGE MANAGEMENT SPECIALIST CPT-36157 Administration single or combination vac cine inc oral 11:40:38 RANGE MANAGEMENT SPECIALIST CPT-65804 Gardasil 11:40:38 RANGE MANAGEMENT SPECIALIST CPT-05553 Administration single or combination vac cine inc oral 09:45:00 CDT CPT-74337 Influenza Preservative Free split virus >age 3 09:45:00 CDT CPT-12960 Venipuncture Draw Fee 07:59:02 CDT
--- OUTSIDE RECORDS SUMMARY | 2019-10-10 20:37 | XMS REPORT | Clinical Summary ---
Author Author Admin, Son Chan Organization [facility] Address Unknown Phone Unavailable Allergies, Adverse Reactions, [...] 1 herman ly for 3 days PREDNISONE 54847601751 No Longer Active Ned pérez MD Active CEPHALEXIN 500 MG ORAL CAPS CEPHALEXIN 39838255906 No Longer Active Ned Navarrete MD Active LATUDA 20 MG ORAL TABS LURASIDONE HCL 1025956 0230 Active Breanne Madl CAR UNLOADER HELPER Active LORATADINE 10 MG TABS 1 tablet by mouth daily L ORATADINE 44645125962 No Longer Active Breanne Madl CAR UNLOADER HELPER Active HYDROXYZINE HCL 25 MG TABS Take 1-2 tablets daily 2015 HYDROXYZINE HCL 13866228551 No Longer Active Breanne Madl CAR UNLOADER HELPER Active ORTHO TRI-CYCLEN (28) 0.18/0.215/0.25 MG-35 MCG TABS 1 daily NORGESTIM-ETH ESTRAD TRIPHASIC 71545815204 No Longer Active Breanne Madl CAR UNLOADER HELPER Active CLARITIN 10 MG TAB 1 tablet by mouth daily as needed for itchy r khari LORATADINE 02751770286 No Longer Active Ned Navarrete MD Active AUGMENTIN 875-125 MG TAB 1 po BID x 10 days with food AMOXICILLIN-POT CLAVULANATE 98438349624 No Longer Active Toni Washington DO Active ORTHO TRI-CYCLEN (28) 0.18/0.215/0.25 MG-35 MCG TABS 1 daily NORGESTIM-ETH ESTRAD TRIPHASIC 67010299308 No Longer Active Ned Navarrete MD Active ZOFRAN ODT 4 MG TBDP 1 po q6hr PRN Nausea ONDAN SETRON 40626103072 No Longer Active Ned Navarrete MD Active [facility] MEL[facility] 3 MG TABS Take 1 tablet at bedtime. 2013 MELATONIN 63779621114 No Longer Active Ned Navarrete MD Activ e BIOTIN 1000 MCG TABS Take 2 tablets daily BIOTI N 67651193485 No Longer Active Ned Navarrete MD Active OMEPRAZOLE 20 MG CPDR 1 tablet by mouth daily O MEPRAZOLE 87707821178 No Longer Active Mariana Moses APRN Active LATUDA 80 MG TABS 1 tablet daily LURASIDONE HCL 45803769681 No Longer Active Mariana Moses APRN Active ZOVIRAX 400 MG TABS Take 1 tablet every 8 hours as needed 2 ACYCLOVIR 21878450108 No Longer Active Ned Navarrete MD Activ e ZITHROMAX Z-CHACE 250 MG TABS 2 today, then 1 daily for 4 days 201 10/06/11 AZITHROMYCIN 18771734286 No Longer Active Ned Navarrete MD Active TOPAMAX 100 MG TABS 1 tablet daily TOPIRAMATE 54 836318973 No Longer Active Ned Navarrete MD Active AMOXICILLIN 500 MG CAPS 2 po BID x 10 days AMOX ICILLIN 23772633558 No Longer Active Saskia Simon MD PhD Active NAPROSYN 375 MG TAB 1 twice a day as needed for chest pain 04/01 NAPROXEN 65015539745 No Longer Active Saskia Simon MD PhD Active HYDROCORTISONE 2.5 % EXT CREA Apply three times a day to aff ected area HYDROCORTISONE 13780199706 No Longer Active Ned Navarrete MD Active TOPIRAMATE 50 MG TABS 1 QD TOPIRAMATE 52551860108 No Longer Active Ned Navarrete MD Active FANAPT 6 MG TABS 1 BID ILOPERIDONE 98454834020 No L onger Active Ned Navarrete MD Active CIPROFLOXACIN HCL 0.3 % SOLN 1 drop in right eye every 2 hours for 2 days, then 1 drop four times a day CIPROFLOXACIN HCL 36540284095 No Longer Active Ned Navarrete MD Active LORATADINE 10 MG TABS 1 tablet by mouth daily L ORATADINE 19130660590 No Longer Active Ned Navarrete MD Active RANITIDINE HCL 150 MG CAPS 1 twice a day RANITI DINE HCL 16301765984 No Longer Active Ned Navarrete MD Active RANITIDINE HCL 150 MG CAPS 1 twice a day RANITIDINE HCL 150 MG CAPS 589432 RANITIDINE HCL Inactive LORATADINE 10 MG TABS 1 tablet by mouth daily LORATADINE 10 MG TABS 438595 LORATADINE Inactive CIPROFLOXACIN HCL 0.3 % SOLN 1 drop in right eye every 2 hours for 2 days, then 1 drop four times a day CIPROFLOXACIN HCL 0.3 % SOLN 585905 CIPROFLOXACIN HCL Inactive FANAPT 6 MG TABS 1 BID FANAPT 6 MG TABS ILO PERIDONE Inactive TOPIRAMATE 50 MG TABS 1 QD TOPIRAMATE 50 MG TABS 1 22830 TOPIRAMATE Inactive HYDROCORTISONE 2.5 % EXT CREA Apply three times a day to aff ected area HYDROCORTISONE 2.5 % EXT CREA 086297 HYDROCORTIS ONE Inactive NAPROSYN 375 MG TAB 1 twice a day as needed for chest pain 04/01 NAPROSYN 375 MG TAB NAPROXEN Inactive TOPAMAX 100 MG TABS 1 tablet daily TOPAMAX 100 MG TABS 813434 TOPIRAMATE Inactive ZOVIRAX 400 MG TABS Take 1 tablet every 8 hours as needed 2 ZOVIRAX 400 MG TABS 551236 ACYCLOVIR Inactive LATUDA 80 MG TABS 1 tablet daily LATUDA 80 MG TA BS LURASIDONE HCL Inactive OMEPRAZOLE 20 MG CPDR 1 tablet by mouth daily OMEPRAZOLE 20 MG CPDR 203684 OMEPRAZOLE Inactive BIOTIN 1000 MCG TABS Take 2 tablets daily BIOTIN 1000 MCG TABS 377213 BIOTIN Inactive [facility] 3 MG TABS Take 1 tablet at bedtime. 2013 [facility] M[facility] 3 MG TABS 742344 MELATONIN Inactive ZOFRAN ODT 4 MG TBDP 1 po q6hr PRN Nausea ZOFRAN ODT 4 MG TBDP 742889 ONDANSETRON Inactive ORTHO TRI-CYCLEN (28) 0.18/0.215/0.25 MG-35 MCG TABS 1 daily ORTHO TRI-CYCLEN (28) 0.18/0.215/0.25 MG-35 MCG TABS 493747 NORGESTIM-ETH ESTRAD TRIPHASIC Inactive CLARITIN 10 MG TAB 1 tablet by mouth daily as needed for itchy r khari CLARITIN 10 MG TAB 068709 LORATADINE Inactive ORTHO TRI-CYCLEN (28) 0.18/0.215/0.25 MG-35 MCG TABS 1 daily ORTHO TRI-CYCLEN (28) 0.18/0.215/0.25 MG-35 MCG TABS 352095 NORGESTIM-ETH ESTRAD TRIPHASIC Inactive HYDROXYZINE HCL 25 MG TABS Take 1-2 tablets daily 2015 HYDROXYZINE HCL 25 MG TABS 062681 HYDROXYZINE HCL Inactive LORATADINE 10 MG TABS 1 tablet by mouth daily LORATADINE 10 MG TABS 697813 LORATADINE Inactive CEPHALEXIN 500 MG ORAL CAPS CEPHALEX IN 500 MG ORAL CAPS 369377 CEPHALEXIN Inactive PREDNISONE 20 MG TABS Take 2 daily for 3 days and then 1 herman ly for 3 days PREDNISONE 20 MG TABS 047656 PREDNISONE Inacti ve AMOXICILLIN 500 MG CAPS 2 po BID x 10 days AMOXICILLIN 500 MG CAPS 338745 AMOXICILLIN Inactive ZITHROMAX Z-CHACE 250 MG TABS 2 today, then 1 daily for 4 days 201 10/06/11 ZITHROMAX Z-CHACE 250 MG TABS 5954157 AZITHROMYCIN Inac tive AUGMENTIN 875-125 MG TAB 1 po BID x 10 days with food AUGMENTIN 875-125 MG TAB 822653 AMOXICILLIN-POT CLAVULANATE Inactiv e Advance Directives Directive [...] 18 yo)) Fluzone preservative free (>3 yrs.) [TDC003] Influenza, seasonal, injectable, preservative free MPSV4 (meningococcal polysaccharide vaccination) Menactra meningococcal polysaccharide vaccine (MPSV4) hepatitis A immunization #1 Havrix-Pedi hepa titis A vaccine, unspecified formulation Adacel (Tetanus, reduced Diphtheria, and acellular Per tussis Immunization) Adacel [VLS029] tetanus toxoid, reduced diph theria toxoid, and [...] 11 .0-15.0 platelet count 210 THOUSAND/UL 10*3/mm3 981-085 7250/11/02 mean platelet volume 10.3 fL 7.5-11.5 Lab [...] N Encounters Code Encounter Date Provider Facility CPT-64722 Level 3 Est. Patient 15:21:38 POULTICE MACHINE OPERATOR Rayna Pepper [facility] [place] CPT-81533 Level 3 Est. Patient 15:35:51 POULTICE MACHINE OPERATOR Ned Navarrete MD [facility] CPT-64474 Level 2 Est. Patient 12:43:40 CDT Ned Navarrete MD [facility] CPT-25244 Level 3 Est. Patient 14:38:48 CDT Toni duque DO [facility] CPT-23116 Level 3 Est. Patient 09:02:58 POULTICE MACHINE OPERATOR George paulson MD [facility] CPT-12348 Level 3 Est. Patient 17:42:32 CDT Ned Navarrete MD [facility] CPT-44169 Level 3 Est. Patient 11:04:31 POULTICE MACHINE OPERATOR Mariana Torrez [facility] CPT-11932 Level 4 Est. Patient 12:27:05 POULTICE MACHINE OPERATOR Ned Navarrete MD [facility] CPT-18401 Level 3 Est. Patient 11:31:58 POULTICE MACHINE OPERATOR Ned Navarrete MD [facility] CPT-63840 Level 3 Est. Patient 16:49:32 CDT Ned Navarrete MD [facility] CPT-03563 Level 4 Est. Patient 14:11:59 POULTICE MACHINE OPERATOR Saskia green MD PhD [facility] CPT-34478 Level 3 Est. Patient 17:34:25 CDT Ned Navarrete MD [facility] CPT-61561 Level 3 Est. Patient 17:34:19 CDT Ned Navarrete MD [facility] CPT-14470 Level 3 Est. Patient 13:46:05 CDT Ned Navarrete MD [facility] CPT-81022 Level 3 Est. Patient 16:55:47 POULTICE MACHINE OPERATOR Ned Navarrete MD [facility] CPT-61326 Level 2 Est. Patient 17:33:08 POULTICE MACHINE OPERATOR Ned Navarrete MD [facility] CPT-48580 Level 3 Est. Patient 16:25:26 POULTICE MACHINE OPERATOR Ned Navarrete MD [facility] Procedures Code Procedure Name Date Entry Date Standard Desc ription CPT-86230 Visit 15:57:29 CDT CPT-84516 First Vx - Ix admin via ID I M or jet injects without counseling by physician 15:53:15 CDT CPT-74398 Boostrix Intramuscular Suspension 5-2.5-18.5 201 01/28/11 15:53:14 CDT CPT-11224 Tdap 7yrs or > 14:41:06 CDT CPT-69027 Visit 17:47:08 CDT CPT-57773 OBGTT 1 - LAB USE ONLY 10:15:57 CDT CPT-84515 Venipuncture Draw Fee 10:15:57 CDT CPT-68309 Visit 15:07:16 POULTICE MACHINE OPERATOR CPT-13470 Visit 16:49:41 POULTICE MACHINE OPERATOR CPT-56916 Sono OB limited - XRAY USE ONLY 16:38:01 CS T CPT-52812 Sono OB comp > 14 weeks - XRAY USE ONLY 17:00:59 POULTICE MACHINE OPERATOR CPT-39246 UA w micro - LAB USE ONLY 16:59:38 CDT 2015 CPT-98730 TSH - LAB USE ONLY 16:59:38 CDT CPT-08123 Venipuncture Draw Fee 16:59:38 CDT CPT-74898 Spec Collection and Handling Fee 14:01:24 C DT CPT-13335 Visit 14:01:24 CDT CPT-033 [facility] Med Screen 14:03:18 CDT CPT-033 [facility] Med Screen 11:04:57 CDT CPT-033 [facility] Med Screen 10:29:44 CDT CPT-94109 Administration 2+ single or combination vaccines inc oral 14:02:47 POULTICE MACHINE OPERATOR CPT-07776 Administration single or combination vac cine inc oral 14:02:47 POULTICE MACHINE OPERATOR CPT-71337 Hepatitis A ped/adol 2 dose schedule 14:02:47 POULTICE MACHINE OPERATOR CPT-24580 Gardasil 14:02:47 POULTICE MACHINE OPERATOR CPT-66540 Administration single or combination vac cine inc oral 11:40:38 POULTICE MACHINE OPERATOR CPT-90641 Gardasil 11:40:38 POULTICE MACHINE OPERATOR CPT-68525 Administration single or combination vac cine inc oral 09:45:00 CDT CPT-54154 Influenza Preservative Free split virus >age 3 09:45:00 CDT CPT-98286 Venipuncture Draw Fee 07:59:02 CDT
--- OUTSIDE RECORDS SUMMARY | 2019-10-10 20:38 | XMS REPORT | Clinical Summary ---
Author Author Admin, Son Chan Organization [facility] Address Unknown Phone Unavailable Allergies, [...] LATUDA 20 MG ORAL TABS LURASIDONE HCL 1720793 0230 Active Breanne Madl SANDER AND BUFFER Active CEPHALEXIN 500 MG ORAL CAPS CEPHALEXIN 005384 61007 Active Breanne Madl SANDER AND BUFFER Active LORATADINE 10 MG TABS 1 tablet by mouth daily L ORATADINE 10786427256 No Longer Active Breanne Madl SANDER AND BUFFER Active HYDROXYZINE HCL 25 MG TABS Take 1-2 tablets daily 2015 HYDROXYZINE HCL 44543742815 No Longer Active Breanne Madl SANDER AND BUFFER Active ORTHO TRI-CYCLEN (28) 0.18/0.215/0.25 MG-35 MCG TABS 1 daily NORGESTIM-ETH ESTRAD TRIPHASIC 48746054797 No Longer Active Breanne Madl SANDER AND BUFFER Active CLARITIN 10 MG TAB 1 tablet by mouth daily as needed for itchy r khari LORATADINE 64457320789 No Longer Active Ned Navarrete MD Active AUGMENTIN 875-125 MG TAB 1 po BID x 10 days with food AMOXICILLIN-POT CLAVULANATE 67959013080 No Longer Active Toni Washington DO Active ORTHO TRI-CYCLEN (28) 0.18/0.215/0.25 MG-35 MCG TABS 1 daily NORGESTIM-ETH ESTRAD TRIPHASIC 73345965568 No Longer Active Ned Navarrete MD Active ZOFRAN ODT 4 MG TBDP 1 po q6hr PRN Nausea ONDAN SETRON 72149964029 No Longer Active Ned Navarrete MD Active [facility] MEL[facility] 3 MG TABS Take 1 tablet at bedtime. 2013 MELATONIN 00607919057 No Longer Active Ned Navarrete MD Activ e BIOTIN 1000 MCG TABS Take 2 tablets daily BIOTI N 86990037122 No Longer Active Ned Navarrete MD Active OMEPRAZOLE 20 MG CPDR 1 tablet by mouth daily O MEPRAZOLE 07546302662 No Longer Active Mariana Moses APRN Active LATUDA 80 MG TABS 1 tablet daily LURASIDONE HCL 01425851878 No Longer Active Mariana Moses APRN Active ZOVIRAX 400 MG TABS Take 1 tablet every 8 hours as needed 2 ACYCLOVIR 15453455248 No Longer Active Ned Navarrete MD Activ e ZITHROMAX Z-CHACE 250 MG TABS 2 today, then 1 daily for 4 days 201 10/06/11 AZITHROMYCIN 59933302614 No Longer Active Ned Navarrete MD Active TOPAMAX 100 MG TABS 1 tablet daily TOPIRAMATE 54 632642791 No Longer Active Ned Navarrete MD Active AMOXICILLIN 500 MG CAPS 2 po BID x 10 days AMOX ICILLIN 62988781517 No Longer Active Saskia Simon MD PhD Active NAPROSYN 375 MG TAB 1 twice a day as needed for chest pain 04/01 NAPROXEN 06108689618 No Longer Active Saskia Simon MD PhD Active HYDROCORTISONE 2.5 % EXT CREA Apply three times a day to aff ected area HYDROCORTISONE 89987264945 No Longer Active Ned Navarrete MD Active TOPIRAMATE 50 MG TABS 1 QD TOPIRAMATE 81128646792 No Longer Active Ned Navarrete MD Active FANAPT 6 MG TABS 1 BID ILOPERIDONE 69216070305 No L onger Active Ned Navarrete MD Active CIPROFLOXACIN HCL 0.3 % SOLN 1 drop in right eye every 2 hours for 2 days, then 1 drop four times a day CIPROFLOXACIN HCL 85189315535 No Longer Active Ned Navarrete MD Active LORATADINE 10 MG TABS 1 tablet by mouth daily L ORATADINE 70929144790 No Longer Active Ned Navarrete MD Active RANITIDINE HCL 150 MG CAPS 1 twice a day RANITI DINE HCL 97537780812 No Longer Active Ned Navarrete MD Active RANITIDINE HCL 150 MG CAPS 1 twice a day RANITIDINE HCL 150 MG CAPS 391579 RANITIDINE HCL Inactive LORATADINE 10 MG TABS 1 tablet by mouth daily LORATADINE 10 MG TABS 813533 LORATADINE Inactive CIPROFLOXACIN HCL 0.3 % SOLN 1 drop in right eye every 2 hours for 2 days, then 1 drop four times a day CIPROFLOXACIN HCL 0.3 % SOLN 986895 CIPROFLOXACIN HCL Inactive FANAPT 6 MG TABS 1 BID FANAPT 6 MG TABS ILO PERIDONE Inactive TOPIRAMATE 50 MG TABS 1 QD TOPIRAMATE 50 MG TABS 1 54211 TOPIRAMATE Inactive HYDROCORTISONE 2.5 % EXT CREA Apply three times a day to aff ected area HYDROCORTISONE 2.5 % EXT CREA 498157 HYDROCORTIS ONE Inactive NAPROSYN 375 MG TAB 1 twice a day as needed for chest pain 04/01 NAPROSYN 375 MG TAB NAPROXEN Inactive TOPAMAX 100 MG TABS 1 tablet daily TOPAMAX 100 MG TABS 410678 TOPIRAMATE Inactive ZOVIRAX 400 MG TABS Take 1 tablet every 8 hours as needed ZOVIRAX 400 MG TABS 337380 ACYCLOVIR Inactive LATUDA 80 MG TABS 1 tablet daily LATUDA 80 MG TA BS LURASIDONE HCL Inactive OMEPRAZOLE 20 MG CPDR 1 tablet by mouth daily OMEPRAZOLE 20 MG CPDR 824730 OMEPRAZOLE Inactive BIOTIN 1000 MCG TABS Take 2 tablets daily BIOTIN 1000 MCG TABS 279607 BIOTIN Inactive [facility] 3 MG TABS Take 1 tablet at bedtime. 2013 [facility] M[facility] 3 MG TABS 619817 MELATONIN Inactive ZOFRAN ODT 4 MG TBDP 1 po q6hr PRN Nausea ZOFRAN ODT 4 MG TBDP 584553 ONDANSETRON Inactive ORTHO TRI-CYCLEN (28) 0.18/0.215/0.25 MG-35 MCG TABS 1 daily ORTHO TRI-CYCLEN (28) 0.18/0.215/0.25 MG-35 MCG TABS 960702 NORGESTIM-ETH ESTRAD TRIPHASIC Inactive CLARITIN 10 MG TAB 1 tablet by mouth daily as needed for itchy r khari CLARITIN 10 MG TAB 615384 LORATADINE Inactive ORTHO TRI-CYCLEN (28) 0.18/0.215/0.25 MG-35 MCG TABS 1 daily ORTHO TRI-CYCLEN (28) 0.18/0.215/0.25 MG-35 MCG TABS 671763 NORGESTIM-ETH ESTRAD TRIPHASIC Inactive HYDROXYZINE HCL 25 MG TABS Take 1-2 tablets daily 2015 HYDROXYZINE HCL 25 MG TABS 163337 HYDROXYZINE HCL Inactive LORATADINE 10 MG TABS 1 tablet by mouth daily LORATADINE 10 MG TABS 095526 LORATADINE Inactive AMOXICILLIN 500 MG CAPS 2 po BID x 10 days AMOXICILLIN 500 MG CAPS 318389 AMOXICILLIN Inactive ZITHROMAX Z-CHACE 250 MG TABS 2 today, then 1 daily for 4 days 201 10/06/11 ZITHROMAX Z-CHACE 250 MG TABS 7622259 AZITHROMYCIN Inac tive AUGMENTIN 875-125 MG TAB 1 po BID x 10 days with food AUGMENTIN 875-125 MG TAB 489329 AMOXICILLIN-POT CLAVULANATE Inactiv e Advance Directives Directive [...] 18 yo)) Fluzone preservative free (>3 yrs.) [[id number]] Influenza, seasonal, injectable, preservative free MPSV4 (meningococcal polysaccharide vaccination) Menactra meningococcal polysaccharide vaccine (MPSV4) hepatitis A immunization #1 Havrix-Pedi hepa titis A vaccine, unspecified formulation Adacel (Tetanus, reduced Diphtheria, and acellular Per tussis Immunization) Adacel [[id number]] tetanus toxoid, reduced diph theria toxoid, and [...] Measured Encounters Code Encounter Date Provider Facility CPT-34863 Level 2 Est. Patient 12:43:40 CDT Ned Navarrete MD [facility] CPT-18787 Level 3 Est. Patient 14:38:48 CDT Toni duque DO [facility] CPT-55779 Level 3 Est. Patient 09:02:58 SAFE AND VAULT SERVICE MECHANIC George paulson MD [facility] CPT-50328 Level 3 Est. Patient 17:42:32 CDT Ned Navarrete MD [facility] CPT-54885 Level 3 Est. Patient 11:04:31 SAFE AND VAULT SERVICE MECHANIC Mariana Torrez APRN [facility] CPT-65843 Level 4 Est. Patient 12:27:05 SAFE AND VAULT SERVICE MECHANIC Ned Navarrete MD [facility] CPT-84636 Level 3 Est. Patient 11:31:58 SAFE AND VAULT SERVICE MECHANIC Ned Navarrete MD [facility] CPT-86949 Level 3 Est. Patient 16:49:32 CDT Ned Navarrete MD [facility] CPT-12485 Level 4 Est. Patient 14:11:59 SAFE AND VAULT SERVICE MECHANIC Saskia green MD PhD [facility] CPT-20326 Level 3 Est. Patient 17:34:25 CDT Ned Navarrete MD [facility] CPT-73609 Level 3 Est. Patient 17:34:19 CDT Ned Navarrete MD [facility] CPT-24355 Level 3 Est. Patient 13:46:05 CDT Ned Navarrete MD [facility] CPT-80954 Level 3 Est. Patient 16:55:47 SAFE AND VAULT SERVICE MECHANIC Ned Navarrete MD [facility] CPT-12270 Level 2 Est. Patient 17:33:08 SAFE AND VAULT SERVICE MECHANIC Ned Navarrete MD [facility] CPT-35869 Level 3 Est. Patient 16:25:26 SAFE AND VAULT SERVICE MECHANIC Ned Navarrete MD [facility] Procedures Code Procedure Name Date Entry Date Standard Desc ription CPT-30455 UA w micro - LAB USE ONLY 16:59:38 CDT 2015 CPT-24985 TSH - LAB USE ONLY 16:59:38 CDT CPT-75610 Venipuncture Draw Fee 16:59:38 CDT CPT-81851 Spec Collection and Handling Fee 14:01:24 C DT CPT-98673 Visit 14:01:24 CDT CPT-033 KB Med Screen 14:03:18 CDT CPT-033 KB Med Screen 11:04:57 CDT CPT-033 [facility] Med Screen 10:29:44 CDT CPT-73384 Administration 2+ single or combination vaccines inc oral 14:02:47 SAFE AND VAULT SERVICE MECHANIC CPT-30434 Administration single or combination vac cine inc oral 14:02:47 SAFE AND VAULT SERVICE MECHANIC CPT-76728 Hepatitis A ped/adol 2 dose schedule 14:02:47 SAFE AND VAULT SERVICE MECHANIC CPT-78566 Gardasil 14:02:47 SAFE AND VAULT SERVICE MECHANIC CPT-73954 Administration single or combination vac cine inc oral 11:40:38 SAFE AND VAULT SERVICE MECHANIC CPT-28323 Gardasil 11:40:38 SAFE AND VAULT SERVICE MECHANIC CPT-91396 Administration single or combination vac cine inc oral 09:45:00 CDT CPT-19299 Influenza Preservative Free split virus >age 3 09:45:00 CDT CPT-52824 Venipuncture Draw Fee 07:59:02 CDT
--- OUTSIDE RECORDS SUMMARY | 2019-10-10 20:38 | XMS REPORT | Clinical Summary ---
Author Author Admin, Son Rodriguez [facility] Address Unknown Phone Unavailable Allergies, Adverse Reactions, [...] 1 daily for contraception NORGESTIM-ETH ESTRAD TRIPHASIC 32405303710 Active Ned Navarrete MD Active LATUDA 20 MG ORAL TABS LURASIDONE HCL 49180435695 No Longer Active Ned Navarrete MD Active PREDNISONE 20 MG TABS Take 2 daily for 3 days and then 1 herman ly for 3 days PREDNISONE 03516837646 No Longer Active Ned pérez MD Active CEPHALEXIN 500 MG ORAL CAPS CEPHALEXIN 74364353038 No Longer Active Ned Navarrete MD Active LORATADINE 10 MG TABS 1 tablet by mouth daily L ORATADINE 41380942628 No Longer Active Breanne Madl ARCHITECTURE PROFESSOR Active HYDROXYZINE HCL 25 MG TABS Take 1-2 tablets daily 2015 HYDROXYZINE HCL 64120405397 No Longer Active Breanne Madl ARCHITECTURE PROFESSOR Active ORTHO TRI-CYCLEN (28) 0.18/0.215/0.25 MG-35 MCG TABS 1 daily NORGESTIM-ETH ESTRAD TRIPHASIC 90790423050 No Longer Active Breanne Madl ARCHITECTURE PROFESSOR Active CLARITIN 10 MG TAB 1 tablet by mouth daily as needed for itchy r khari LORATADINE 90336951161 No Longer Active Ned Navarrete MD Active AUGMENTIN 875-125 MG TAB 1 po BID x 10 days with food AMOXICILLIN-POT CLAVULANATE 08121204158 No Longer Active Toni Washington DO Active ORTHO TRI-CYCLEN (28) 0.18/0.215/0.25 MG-35 MCG TABS 1 daily NORGESTIM-ETH ESTRAD TRIPHASIC 13307858019 No Longer Active Ned Navarrete MD Active ZOFRAN ODT 4 MG TBDP 1 po q6hr PRN Nausea ONDAN SETRON 56886330681 No Longer Active Ned Navarrete MD Active [facility] MEL[facility] 3 MG TABS Take 1 tablet at bedtime. 2013 MELATONIN 50466502211 No Longer Active Ned Navarrete MD Activ e BIOTIN 1000 MCG TABS Take 2 tablets daily BIOTI N 28185557398 No Longer Active Ned Navarrete MD Active OMEPRAZOLE 20 MG CPDR 1 tablet by mouth daily O MEPRAZOLE 84263211162 No Longer Active Mariana Moses APRN Active LATUDA 80 MG TABS 1 tablet daily LURASIDONE HCL 46120806714 No Longer Active Mariana Moses APRN Active ZOVIRAX 400 MG TABS Take 1 tablet every 8 hours as needed 2 ACYCLOVIR 23098531538 No Longer Active Ned Navarrete MD Activ e ZITHROMAX Z-CHACE 250 MG TABS 2 today, then 1 daily for 4 days 201 10/06/11 AZITHROMYCIN 99081740017 No Longer Active Ned Navarrete MD Active TOPAMAX 100 MG TABS 1 tablet daily TOPIRAMATE 54 169063851 No Longer Active Ned Navarrete MD Active AMOXICILLIN 500 MG CAPS 2 po BID x 10 days AMOX ICILLIN 78444317544 No Longer Active Saskia Simon MD PhD Active NAPROSYN 375 MG TAB 1 twice a day as needed for chest pain 04/01 NAPROXEN 48936287013 No Longer Active Saskia Simon MD PhD Active HYDROCORTISONE 2.5 % EXT CREA Apply three times a day to aff ected area HYDROCORTISONE 61260465206 No Longer Active Ned Navarrete MD Active TOPIRAMATE 50 MG TABS 1 QD TOPIRAMATE 26278361502 No Longer Active Ned Navarrete MD Active FANAPT 6 MG TABS 1 BID ILOPERIDONE 51388830686 No L onger Active Ned Navarrete MD Active CIPROFLOXACIN HCL 0.3 % SOLN 1 drop in right eye every 2 hours for 2 days, then 1 drop four times a day CIPROFLOXACIN HCL 73896724217 No Longer Active Ned Navarrete MD Active LORATADINE 10 MG TABS 1 tablet by mouth daily L ORATADINE 61425860055 No Longer Active Ned Navarrete MD Active RANITIDINE HCL 150 MG CAPS 1 twice a day RANITI DINE HCL 86487927047 No Longer Active Ned Navarrete MD Active RANITIDINE HCL 150 MG CAPS 1 twice a day RANITIDINE HCL 150 MG CAPS 436073 RANITIDINE HCL Inactive LORATADINE 10 MG TABS 1 tablet by mouth daily LORATADINE 10 MG TABS 141304 LORATADINE Inactive CIPROFLOXACIN HCL 0.3 % SOLN 1 drop in right eye every 2 hours for 2 days, then 1 drop four times a day CIPROFLOXACIN HCL 0.3 % SOLN 749258 CIPROFLOXACIN HCL Inactive FANAPT 6 MG TABS 1 BID FANAPT 6 MG TABS ILO PERIDONE Inactive TOPIRAMATE 50 MG TABS 1 QD TOPIRAMATE 50 MG TABS 1 16016 TOPIRAMATE Inactive HYDROCORTISONE 2.5 % EXT CREA Apply three times a day to aff ected area HYDROCORTISONE 2.5 % EXT CREA 962330 HYDROCORTIS ONE Inactive NAPROSYN 375 MG TAB 1 twice a day as needed for chest pain 04/01 NAPROSYN 375 MG TAB NAPROXEN Inactive TOPAMAX 100 MG TABS 1 tablet daily TOPAMAX 100 MG TABS 912589 TOPIRAMATE Inactive ZOVIRAX 400 MG TABS Take 1 tablet every 8 hours as needed 2 ZOVIRAX 400 MG TABS 571852 ACYCLOVIR Inactive LATUDA 80 MG TABS 1 tablet daily LATUDA 80 MG TA BS LURASIDONE HCL Inactive OMEPRAZOLE 20 MG CPDR 1 tablet by mouth daily OMEPRAZOLE 20 MG CPDR 570317 OMEPRAZOLE Inactive BIOTIN 1000 MCG TABS Take 2 tablets daily BIOTIN 1000 MCG TABS 846524 BIOTIN Inactive [facility] 3 MG TABS Take 1 tablet at bedtime. 2013 [facility] 3 MG TABS 110533 MELATONIN Inactive ZOFRAN ODT 4 MG TBDP 1 po q6hr PRN Nausea ZOFRAN ODT 4 MG TBDP 986932 ONDANSETRON Inactive ORTHO TRI-CYCLEN (28) 0.18/0.215/0.25 MG-35 MCG TABS 1 daily ORTHO TRI-CYCLEN (28) 0.18/0.215/0.25 MG-35 MCG TABS 183406 NORGESTIM-ETH ESTRAD TRIPHASIC Inactive CLARITIN 10 MG TAB 1 tablet by mouth daily as needed for itchy r khari CLARITIN 10 MG TAB 469306 LORATADINE Inactive ORTHO TRI-CYCLEN (28) 0.18/0.215/0.25 MG-35 MCG TABS 1 daily ORTHO TRI-CYCLEN (28) 0.18/0.215/0.25 MG-35 MCG TABS 052131 NORGESTIM-ETH ESTRAD TRIPHASIC Inactive HYDROXYZINE HCL 25 MG TABS Take 1-2 tablets daily 2015 HYDROXYZINE HCL 25 MG TABS 322670 HYDROXYZINE HCL Inactive LORATADINE 10 MG TABS 1 tablet by mouth daily LORATADINE 10 MG TABS 299781 LORATADINE Inactive CEPHALEXIN 500 MG ORAL CAPS CEPHALEX IN 500 MG ORAL CAPS 500440 CEPHALEXIN Inactive PREDNISONE 20 MG TABS Take 2 daily for 3 days and then 1 herman ly for 3 days PREDNISONE 20 MG TABS 312514 PREDNISONE Inacti ve LATUDA 20 MG ORAL TABS LATUDA 20 MG OR AL TABS LURASIDONE HCL Inactive AMOXICILLIN 500 MG CAPS 2 po BID x 10 days AMOXICILLIN 500 MG CAPS 109763 AMOXICILLIN Inactive ZITHROMAX Z-CHACE 250 MG TABS 2 today, then 1 daily for 4 days 201 10/06/11 ZITHROMAX Z-CHACE 250 MG TABS 9207820 AZITHROMYCIN Inac tive AUGMENTIN 875-125 MG TAB 1 po BID x 10 days with food AUGMENTIN 875-125 MG TAB 820910 AMOXICILLIN-POT CLAVULANATE Inactiv e Advance Directives Directive [...] 18 yo)) Fluzone preservative free (>3 yrs.) [[id number]] Influenza, seasonal, injectable, preservative free MPSV4 (meningococcal polysaccharide vaccination) Menactra meningococcal polysaccharide vaccine (MPSV4) hepatitis A immunization #1 Havrix-Pedi hepa titis A vaccine, unspecified formulation Adacel (Tetanus, reduced Diphtheria, and acellular Per tussis Immunization) Adacel [[id number]] tetanus toxoid, reduced diph theria toxoid, and [...] 11 .0-15.0 platelet count 210 THOUSAND/UL 10*3/mm3 545-579 2813/11/02 mean platelet volume 10.3 fL 7.5-11.5 Lab [...] N Encounters Code Encounter Date Provider Facility CPT-55062 Level 3 Est. Patient 15:21:38 FRONT END DEVELOPER JAVASCRIPT HTML CSS Rayna Pepper APRN [facility] CPT-09838 Level 3 Est. Patient 15:35:51 FRONT END DEVELOPER JAVASCRIPT HTML CSS Ned Navarrete MD [facility] CPT-42616 Level 2 Est. Patient 12:43:40 CDT Ned Navarrete MD [facility] CPT-50648 Level 3 Est. Patient 14:38:48 CDT Toni duque DO [facility] CPT-57722 Level 3 Est. Patient 09:02:58 FRONT END DEVELOPER JAVASCRIPT HTML CSS George paulson MD [facility] CPT-39610 Level 3 Est. Patient 17:42:32 CDT Ned Navarrete MD [facility] CPT-71875 Level 3 Est. Patient 11:04:31 FRONT END DEVELOPER JAVASCRIPT HTML CSS Mariana St caroline QUEVEDON [facility] CPT-98493 Level 4 Est. Patient 12:27:05 FRONT END DEVELOPER JAVASCRIPT HTML CSS Ned Navarrete MD [facility] CPT-26995 Level 3 Est. Patient 11:31:58 FRONT END DEVELOPER JAVASCRIPT HTML CSS Ned Navarrete MD [facility] CPT-27453 Level 3 Est. Patient 16:49:32 CDT Ned Navarrete MD [facility] CPT-26141 Level 4 Est. Patient 14:11:59 FRONT END DEVELOPER JAVASCRIPT HTML CSS Saskia green MD, PhD [facility] CPT-55208 Level 3 Est. Patient 17:34:25 CDT Ned Navarrete MD [facility] CPT-73771 Level 3 Est. Patient 17:34:19 CDT Ned Navarrete MD [facility] CPT-94660 Level 3 Est. Patient 13:46:05 CDT Ned Navarrete MD [facility] CPT-43871 Level 3 Est. Patient 16:55:47 FRONT END DEVELOPER JAVASCRIPT HTML CSS Ned Navarrete MD [facility] CPT-44317 Level 2 Est. Patient 17:33:08 FRONT END DEVELOPER JAVASCRIPT HTML CSS Ned Navarrete MD [facility]-63778 Level 3 Est. Patient 16:25:26 FRONT END DEVELOPER JAVASCRIPT HTML CSS Ned Navarrete MD [facility] Procedures Code Procedure Name Date Entry Date Standard Desc ription CPT-41410 No Charge Offi Visit 11:24:44 CDT 1 CPT-66952 Visit 14:52:59 CDT CPT-87183 Visit 15:17:20 CDT CPT-38217 Visit 15:57:29 CDT CPT-99100 First Vx - Ix admin via ID I M or jet injects without counseling by physician 15:53:15 CDT CPT-33902 Boostrix Intramuscular Suspension 5-2.5-18.5 201 01/28/11 15:53:14 CDT CPT-55108 Tdap 7yrs or > 14:41:06 CDT CPT-46441 Visit 17:47:08 CDT CPT-68696 OBGTT 1 - LAB USE ONLY 10:15:57 CDT CPT-69534 Venipuncture Draw Fee 10:15:57 CDT CPT-25613 Visit 15:07:16 FRONT END DEVELOPER JAVASCRIPT HTML CSS CPT-28433 Visit 16:49:41 FRONT END DEVELOPER JAVASCRIPT HTML CSS CPT-13924 Sono OB limited - XRAY USE ONLY 16:38:01 CS T CPT-66290 Sono OB comp > 14 weeks - XRAY USE ONLY 17:00:59 FRONT END DEVELOPER JAVASCRIPT HTML CSS CPT-08905 UA w micro - LAB USE ONLY 16:59:38 CDT 2015 CPT-49656 TSH - LAB USE ONLY 16:59:38 CDT CPT-13217 Venipuncture Draw Fee 16:59:38 CDT CPT-01395 Spec Collection and Handling Fee 14:01:24 C DT CPT-06213 Visit 14:01:24 CDT CPT-[facility] Med Screen 14:03:18 CDT CPT-033 [facility] Med Screen 11:04:57 CDT CPT-033 [facility] Med Screen 10:29:44 CDT CPT-58579 Administration 2+ single or combination vaccines inc oral 14:02:47 FRONT END DEVELOPER JAVASCRIPT HTML CSS CPT-08582 Administration single or combination vac cine inc oral 14:02:47 FRONT END DEVELOPER JAVASCRIPT HTML CSS CPT-20868 Hepatitis A ped/adol 2 dose schedule 14:02:47 FRONT END DEVELOPER JAVASCRIPT HTML CSS CPT-79510 Gardasil 14:02:47 FRONT END DEVELOPER JAVASCRIPT HTML CSS CPT-93251 Administration single or combination vac cine inc oral 11:40:38 FRONT END DEVELOPER JAVASCRIPT HTML CSS CPT-47551 Gardasil 11:40:38 FRONT END DEVELOPER JAVASCRIPT HTML CSS CPT-01650 Administration single or combination vac cine inc oral 09:45:00 CDT CPT-75678 Influenza Preservative Free split virus >age 3 09:45:00 CDT CPT-09039 Venipuncture Draw Fee 07:59:02 CDT
--- OUTSIDE RECORDS SUMMARY | 2019-10-10 20:38 | XMS REPORT | Clinical Summary ---
Author Author Beka, Son Rodriguez [facility] Address Unknown Phone Unavailable Allergies, Adverse Reactions, [...] MD Gastroenteritis ICD-558.9 Inactive Ned Prescott MD Medication List Medication Instructions Start Date Stop Date Generic Name NDC Status Provider Patient Instruction ORTHO TRI-CYCLEN (28) 0.18/0.215/0.25 MG-35 MCG TABS 1 daily 2 NORGESTIM-ETH ESTRAD TRIPHASIC 40887453156 Active Ned Navarrete MD Active ORTHO TRI-CYCLEN (28) 0.18/0.215/0.25 MG-35 MCG TABS 1 daily NORGESTIM-ETH ESTRAD TRIPHASIC 42875552616 No Longer Active Ned Navarrete MD Active ZOFRAN ODT 4 MG TBDP 1 po q6hr PRN Nausea ONDAN SETRON 90964367780 No Longer Active Ned Navarrete MD Active [facility] MELAT[facility] 3 MG TABS Take 1 tablet at bedtime. 2013 MELATONIN 28326554017 No Longer Active Ned Navarrete MD Activ e BIOTIN 1000 MCG TABS Take 2 tablets daily BIOTI N 83141132651 No Longer Active Ned Navarrete MD Active OMEPRAZOLE 20 MG CPDR 1 tablet by mouth daily O MEPRAZOLE 42839533654 No Longer Active Mariana Moses APRN Active LATUDA 80 MG TABS 1 tablet daily LURASIDONE HCL 80176120905 No Longer Active aMriana Moses APRN Active ZOVIRAX 400 MG TABS Take 1 tablet every 8 hours as needed 2 ACYCLOVIR 93694040385 No Longer Active Ned Navarrete MD Activ e ZITHROMAX Z-CHACE 250 MG TABS 2 today, then 1 daily for 4 days 201 10/06/11 AZITHROMYCIN 89948673106 No Longer Active Ned Navarrete MD Active HYDROXYZINE HCL 25 MG TABS Take 1-2 tablets daily HYDROXYZINE HCL 53822311470 Active Ned Navarrete MD Active TOPAMAX 100 MG TABS 1 tablet daily TOPIRAMATE 54 548931898 No Longer Active Ned Navarrete MD Active AMOXICILLIN 500 MG CAPS 2 po BID x 10 days AMOX ICILLIN 25018314307 No Longer Active Saskia Simon MD PhD Active NAPROSYN 375 MG TAB 1 twice a day as needed for chest pain 04/01 NAPROXEN 43960030514 No Longer Active Saskia Simon MD PhD Active HYDROCORTISONE 2.5 % EXT CREA Apply three times a day to aff ected area HYDROCORTISONE 22291483812 No Longer Active Ned Navarrete MD Active LORATADINE 10 MG TABS 1 tablet by mouth daily L ORATADINE 85329318996 Active Ned Navarrete MD Active TOPIRAMATE 50 MG TABS 1 QD TOPIRAMATE 40171184169 No Longer Active Ned Navarrete MD Active FANAPT 6 MG TABS 1 BID ILOPERIDONE 78805237889 No L onger Active Ned Navarrete MD Active CIPROFLOXACIN HCL 0.3 % SOLN 1 drop in right eye every 2 hours for 2 days, then 1 drop four times a day CIPROFLOXACIN HCL 48785233007 No Longer Active Ned Navarrete MD Active LORATADINE 10 MG TABS 1 tablet by mouth daily L ORATADINE 51155153732 No Longer Active Ned Navarrete MD Active RANITIDINE HCL 150 MG CAPS 1 twice a day RANITI DINE HCL 06397694638 No Longer Active Ned Navarrete MD Active RANITIDINE HCL 150 MG CAPS 1 twice a day RANITIDINE HCL 150 MG CAPS 008905 RANITIDINE HCL Inactive LORATADINE 10 MG TABS 1 tablet by mouth daily LORATADINE 10 MG TABS 804769 LORATADINE Inactive CIPROFLOXACIN HCL 0.3 % SOLN 1 drop in right eye every 2 hours for 2 days, then 1 drop four times a day CIPROFLOXACIN HCL 0.3 % SOLN 561176 CIPROFLOXACIN HCL Inactive FANAPT 6 MG TABS 1 BID FANAPT 6 MG TABS ILO PERIDONE Inactive TOPIRAMATE 50 MG TABS 1 QD TOPIRAMATE 50 MG TABS 1 26740 TOPIRAMATE Inactive HYDROCORTISONE 2.5 % EXT CREA Apply three times a day to aff ected area HYDROCORTISONE 2.5 % EXT CREA 737981 HYDROCORTIS ONE Inactive NAPROSYN 375 MG TAB 1 twice a day as needed for chest pain 04/01 NAPROSYN 375 MG TAB 19790729 NAPROXEN Inactive TOPAMAX 100 MG TABS 1 tablet daily TOPAMAX 100 MG TABS 683568 TOPIRAMATE Inactive ZOVIRAX 400 MG TABS Take 1 tablet every 8 hours as needed 2 ZOVIRAX 400 MG TABS 19720728 ACYCLOVIR Inactive LATUDA 80 MG TABS 1 tablet daily LATUDA 80 MG TA BS LURASIDONE HCL Inactive OMEPRAZOLE 20 MG CPDR 1 tablet by mouth daily OMEPRAZOLE 20 MG CPDR 764504 OMEPRAZOLE Inactive BIOTIN 1000 MCG TABS Take 2 tablets daily BIOTIN 1000 MCG TABS 331436 BIOTIN Inactive [facility] MEL[facility] 3 MG TABS Take 1 tablet at bedtime. 2013 [facility] MEL[facility] 3 MG TABS 872789 MELATONIN Inactive ZOFRAN ODT 4 MG TBDP 1 po q6hr PRN Nausea ZOFRAN ODT 4 MG TBDP 314740 ONDANSETRON Inactive ORTHO TRI-CYCLEN (28) 0.18/0.215/0.25 MG-35 MCG TABS 1 daily ORTHO TRI-CYCLEN (28) 0.18/0.215/0.25 MG-35 MCG TABS 890933 NORGESTIM-ETH ESTRAD TRIPHASIC Inactive AMOXICILLIN 500 MG CAPS 2 po BID x 10 days AMOXICILLIN 500 MG CAPS 924334 AMOXICILLIN Inactive ZITHROMAX Z-CHACE 250 MG TABS 2 today, then 1 daily for 4 days 201 10/06/11 ZITHROMAX Z-CHACE 250 MG TABS 7588870 AZITHROMYCIN Inac tive Advance Directives Directive Description [...] 16 yo)) Fluzone preservative free (>3 yrs.) [[id number]] Influenza, seasonal, injectable, preservative free hepatitis A immunization #1 Havrix-Pedi hepa titis A vaccine, unspecified formulation MPSV4 (meningococcal polysaccharide vaccination) Menactra meningococcal polysaccharide vaccine (MPSV4) Adacel (Tetanus, reduced Diphtheria, and acellular Per tussis Immunization) Adacel [[id number]] tetanus toxoid, reduced diph theria toxoid, and [...] formulation oral polio vaccine (OPV) #1 Historical csae ovirus vaccine, unspecified formulation hepatitis B vaccine [...] Name Value Unit Range Description Lab Report: [facility] - Chemistry human chorionic gonadotropin , urine, qualitative (urine test) Negative Negative Encounters Code Encounter Date Provider Facility CPT-51871 Level 3 Est. Patient 17:42:32 CDT Ned Navarrete MD [facility] CPT-56619 Level 3 Est. Patient 11:04:31 HARDENING MACHINE OPERATOR HELPER Mariana Torrez APRN [facility] CPT-67861 Level 4 Est. Patient 12:27:05 HARDENING MACHINE OPERATOR HELPER Ned Navarrete MD [facility] CPT-94392 Level 3 Est. Patient 11:31:58 HARDENING MACHINE OPERATOR HELPER Ned Navarrete MD [facility] CPT-96994 Level 3 Est. Patient 16:49:32 CDT Ned Navarrete MD [facility] CPT-22133 Level 4 Est. Patient 14:11:59 HARDENING MACHINE OPERATOR HELPER Saskia green MD PhD [facility] CPT-41211 Level 3 Est. Patient 17:34:25 CDT Ned Navarrete MD [facility] CPT-35514 Level 3 Est. Patient 17:34:19 CDT Ned Navarrete MD [facility] CPT-90417 Level 3 Est. Patient 13:46:05 CDT Ned Navarrete MD [facility] CPT-45634 Level 3 Est. Patient 16:55:47 HARDENING MACHINE OPERATOR HELPER Ned Navarrete MD [facility] CPT-97499 Level 2 Est. Patient 17:33:08 HARDENING MACHINE OPERATOR HELPER Ned Navarrete MD [facility] CPT-35060 Level 3 Est. Patient 16:25:26 HARDENING MACHINE OPERATOR HELPER Ned Navarrete MD [facility] Procedures Code Procedure Name Date Entry Date Standard Desc ription CPT-033 KB Med Screen 11:04:57 CDT CPT-033 KB Med Screen 10:29:44 CDT CPT-68689 Administration 2+ single or combination vaccines inc oral 14:02:47 HARDENING MACHINE OPERATOR HELPER CPT-65022 Administration single or combination vac cine inc oral 14:02:47 HARDENING MACHINE OPERATOR HELPER CPT-17648 Hepatitis A ped/adol 2 dose schedule 14:02:47 HARDENING MACHINE OPERATOR HELPER CPT-45650 Gardasil 14:02:47 HARDENING MACHINE OPERATOR HELPER CPT-54537 Administration single or combination vac cine inc oral 11:40:38 HARDENING MACHINE OPERATOR HELPER CPT-22517 Gardasil 11:40:38 HARDENING MACHINE OPERATOR HELPER CPT-11268 Administration single or combination vac cine inc oral 09:45:00 CDT CPT-36620 Influenza Preservative Free split virus >age 3 09:45:00 CDT CPT-48687 Venipuncture Draw Fee 07:59:02 CDT
--- OUTSIDE RECORDS SUMMARY | 2019-10-10 20:39 | XMS REPORT | Clinical Summary ---
Author Author Admin, Son Rodriguez [facility] Address Unknown Phone Unavailable Allergies, [...] NO LOSS OF CONSCIOUSNESS 850.0 Resolv ed eNd Navarrete MD Concussion with no loss of [...] LATUDA 20 MG ORAL TABS LURASIDONE HCL 4251596 0230 Active Breanne Madl SEMI CONDUCTOR ASSEMBLER Active CEPHALEXIN 500 MG ORAL CAPS CEPHALEXIN 924224 53536 Active Breanne Madl SEMI CONDUCTOR ASSEMBLER Active LORATADINE 10 MG TABS 1 tablet by mouth daily L ORATADINE 29915413807 No Longer Active Breanne Madl SEMI CONDUCTOR ASSEMBLER Active HYDROXYZINE HCL 25 MG TABS Take 1-2 tablets daily 2015 HYDROXYZINE HCL 03053225097 No Longer Active Breanne Madl SEMI CONDUCTOR ASSEMBLER Active ORTHO TRI-CYCLEN (28) 0.18/0.215/0.25 MG-35 MCG TABS 1 daily NORGESTIM-ETH ESTRAD TRIPHASIC 33672667723 No Longer Active Breanne Madl SEMI CONDUCTOR ASSEMBLER Active CLARITIN 10 MG TAB 1 tablet by mouth daily as needed for itchy r khari LORATADINE 93333520474 No Longer Active Ned Navarrete MD Active AUGMENTIN 875-125 MG TAB 1 po BID x 10 days with food AMOXICILLIN-POT CLAVULANATE 73029040316 No Longer Active Toni Washington DO Active ORTHO TRI-CYCLEN (28) 0.18/0.215/0.25 MG-35 MCG TABS 1 daily NORGESTIM-ETH ESTRAD TRIPHASIC 56775422020 No Longer Active Ned Navarrete MD Active ZOFRAN ODT 4 MG TBDP 1 po q6hr PRN Nausea ONDAN SETRON 74033302147 No Longer Active Ned Navarrete MD Active [facility] MELAT[facility]IN 3 MG TABS Take 1 tablet at bedtime. 2013 MELATONIN 91205414556 No Longer Active Ned Navarrete MD Activ e BIOTIN 1000 MCG TABS Take 2 tablets daily BIOTI N 54067739530 No Longer Active Ned Navarrete MD Active OMEPRAZOLE 20 MG CPDR 1 tablet by mouth daily O MEPRAZOLE 24654309724 No Longer Active Mariana Josué DIRECT SUPPORT STAFF MEMBER Active LATUDA 80 MG TABS 1 tablet daily LURASIDONE HCL 96039356545 No Longer Active Mariana Moses APRN Active ZOVIRAX 400 MG TABS Take 1 tablet every 8 hours as needed 2 ACYCLOVIR 67010394865 No Longer Active Ned Navarrete MD Activ e ZITHROMAX Z-CHACE 250 MG TABS 2 today, then 1 daily for 4 days 201 10/06/11 AZITHROMYCIN 62443190794 No Longer Active Ned Navarrete MD Active TOPAMAX 100 MG TABS 1 tablet daily TOPIRAMATE 54 095871397 No Longer Active Ned Navarrete MD Active AMOXICILLIN 500 MG CAPS 2 po BID x 10 days AMOX ICILLIN 24759994893 No Longer Active Saskia Simon MD PhD Active NAPROSYN 375 MG TAB 1 twice a day as needed for chest pain 04/01 NAPROXEN 60096972499 No Longer Active Saskia Simon MD PhD Active HYDROCORTISONE 2.5 % EXT CREA Apply three times a day to aff ected area HYDROCORTISONE 75555890822 No Longer Active Ned Navarrete MD Active TOPIRAMATE 50 MG TABS 1 QD TOPIRAMATE 24391253481 No Longer Active Ned Navarrete MD Active FANAPT 6 MG TABS 1 BID ILOPERIDONE 05100218550 No L onger Active Ned Navarrete MD Active CIPROFLOXACIN HCL 0.3 % SOLN 1 drop in right eye every 2 hours for 2 days, then 1 drop four times a day CIPROFLOXACIN HCL 34933300035 No Longer Active Ned Navarrete MD Active LORATADINE 10 MG TABS 1 tablet by mouth daily L ORATADINE 51720536110 No Longer Active Ned Navarrete MD Active RANITIDINE HCL 150 MG CAPS 1 twice a day RANITI DINE HCL 44381131041 No Longer Active Ned Navarrete MD Active RANITIDINE HCL 150 MG CAPS 1 twice a day RANITIDINE HCL 150 MG CAPS 772566 RANITIDINE HCL Inactive LORATADINE 10 MG TABS 1 tablet by mouth daily LORATADINE 10 MG TABS 632894 LORATADINE Inactive CIPROFLOXACIN HCL 0.3 % SOLN 1 drop in right eye every 2 hours for 2 days, then 1 drop four times a day CIPROFLOXACIN HCL 0.3 % SOLN 822671 CIPROFLOXACIN HCL Inactive FANAPT 6 MG TABS 1 BID FANAPT 6 MG TABS ILO PERIDONE Inactive TOPIRAMATE 50 MG TABS 1 QD TOPIRAMATE 50 MG TABS 1 42992 TOPIRAMATE Inactive HYDROCORTISONE 2.5 % EXT CREA Apply three times a day to aff ected area HYDROCORTISONE 2.5 % EXT CREA 851474 HYDROCORTIS ONE Inactive NAPROSYN 375 MG TAB 1 twice a day as needed for chest pain 04/01 NAPROSYN 375 MG TAB NAPROXEN Inactive TOPAMAX 100 MG TABS 1 tablet daily TOPAMAX 100 MG TABS 937074 TOPIRAMATE Inactive ZOVIRAX 400 MG TABS Take 1 tablet every 8 hours as needed 2 ZOVIRAX 400 MG TABS 932924 ACYCLOVIR Inactive LATUDA 80 MG TABS 1 tablet daily LATUDA 80 MG TA BS LURASIDONE HCL Inactive OMEPRAZOLE 20 MG CPDR 1 tablet by mouth daily OMEPRAZOLE 20 MG CPDR 417630 OMEPRAZOLE Inactive BIOTIN 1000 MCG TABS Take 2 tablets daily BIOTIN 1000 MCG TABS 556322 BIOTIN Inactive [facility] MEL[facility] 3 MG TABS Take 1 tablet at bedtime. 2013 [facility] MEL[facility]IN 3 MG TABS 483511 MELATONIN Inactive ZOFRAN ODT 4 MG TBDP 1 po q6hr PRN Nausea ZOFRAN ODT 4 MG TBDP 556477 ONDANSETRON Inactive ORTHO TRI-CYCLEN (28) 0.18/0.215/0.25 MG-35 MCG TABS 1 daily ORTHO TRI-CYCLEN (28) 0.18/0.215/0.25 MG-35 MCG TABS 747380 NORGESTIM-ETH ESTRAD TRIPHASIC Inactive CLARITIN 10 MG TAB 1 tablet by mouth daily as needed for itchy r khari CLARITIN 10 MG TAB 068658 LORATADINE Inactive ORTHO TRI-CYCLEN (28) 0.18/0.215/0.25 MG-35 MCG TABS 1 daily ORTHO TRI-CYCLEN (28) 0.18/0.215/0.25 MG-35 MCG TABS 501880 NORGESTIM-ETH ESTRAD TRIPHASIC Inactive HYDROXYZINE HCL 25 MG TABS Take 1-2 tablets daily 2015 HYDROXYZINE HCL 25 MG TABS 266142 HYDROXYZINE HCL Inactive LORATADINE 10 MG TABS 1 tablet by mouth daily LORATADINE 10 MG TABS 093788 LORATADINE Inactive AMOXICILLIN 500 MG CAPS 2 po BID x 10 days AMOXICILLIN 500 MG CAPS 757358 AMOXICILLIN Inactive ZITHROMAX Z-CHACE 250 MG TABS 2 today, then 1 daily for 4 days 201 10/06/11 ZITHROMAX Z-CHACE 250 MG TABS 3049192 AZITHROMYCIN Inac tive AUGMENTIN 875-125 MG TAB 1 po BID x 10 days with food AUGMENTIN 875-125 MG TAB 139007 AMOXICILLIN-POT CLAVULANATE Inactiv e Advance Directives Directive [...] 16 yo)) Fluzone preservative free (>3 yrs.) [[id number]] Influenza, seasonal, injectable, preservative free MPSV4 (meningococcal polysaccharide vaccination) Menactra meningococcal polysaccharide vaccine (MPSV4) hepatitis A immunization #1 Havrix-Pedi hepa titis A vaccine, unspecified formulation Adacel (Tetanus, reduced Diphtheria, and acellular Per tussis Immunization) Adacel [[id number]] tetanus toxoid, reduced diph theria toxoid, and [...] 11 .0-15.0 platelet count 210 THOUSAND/UL 10*3/mm3 330-035 4034/11/02 mean platelet volume 10.3 fL 7.5-11.5 Lab [...] ative Encounters Code Encounter Date Provider Facility CPT-71072 Level 2 Est. Patient 12:43:40 CDT Ned Navarrete MD [facility] CPT-83891 Level 3 Est. Patient 14:38:48 CDT Toni duque DO [facility] CPT-37183 Level 3 Est. Patient 09:02:58 FIRE CHIEF George paulson MD [facility] CPT-71018 Level 3 Est. Patient 17:42:32 CDT Ned Navarrete MD [facility] CPT-70408 Level 3 Est. Patient 11:04:31 FIRE CHIEF Mariana Torrez APRN [facility] CPT-18378 Level 4 Est. Patient 12:27:05 FIRE CHIEF Ned Navarrete MD [facility] CPT-90660 Level 3 Est. Patient 11:31:58 FIRE CHIEF Ned Navarrete MD [facility] CPT-63635 Level 3 Est. Patient 16:49:32 CDT Ned Navarrete MD [facility] CPT-04461 Level 4 Est. Patient 14:11:59 FIRE CHIEF Saskia green MD PhD [facility] CPT-69607 Level 3 Est. Patient 17:34:25 CDT Ned Navarrete MD [facility] CPT-48820 Level 3 Est. Patient 17:34:19 CDT Ned Navarrete MD [facility] CPT-77836 Level 3 Est. Patient 13:46:05 CDT Ned Navarrete MD [facility] CPT-45573 Level 3 Est. Patient 16:55:47 FIRE CHIEF Ned Navarrete MD [facility] CPT-93451 Level 2 Est. Patient 17:33:08 FIRE CHIEF Ned Navarrete MD [facility] CPT-48252 Level 3 Est. Patient 16:25:26 FIRE CHIEF Ned Navarrete MD [facility] Procedures Code Procedure Name Date Entry Date Standard Desc ription CPT-06341 Visit 16:49:41 FIRE CHIEF CPT-67597 Sono OB limited - XRAY USE ONLY 16:38:01 CS T CPT-21007 Sono OB comp > 14 weeks - XRAY USE ONLY 17:00:59 FIRE CHIEF CPT-06366 UA w micro - LAB USE ONLY 16:59:38 CDT 2015 CPT-01371 TSH - LAB USE ONLY 16:59:38 CDT CPT-34779 Venipuncture Draw Fee 16:59:38 CDT CPT-81815 Spec Collection and Handling Fee 14:01:24 C DT CPT-62422 Visit 14:01:24 CDT CPT-033 [facility] Med Screen 14:03:18 CDT CPT-033 [facility] Med Screen 11:04:57 CDT CPT-033 [facility] Med Screen 10:29:44 CDT CPT-76778 Administration 2+ single or combination vaccines inc oral 14:02:47 FIRE CHIEF CPT-56064 Administration single or combination vac cine inc oral 14:02:47 FIRE CHIEF CPT-68831 Hepatitis A ped/adol 2 dose schedule 14:02:47 FIRE CHIEF CPT-44266 Gardasil 14:02:47 FIRE CHIEF CPT-51462 Administration single or combination vac cine inc oral 11:40:38 FIRE CHIEF CPT-48211 Gardasil 11:40:38 FIRE CHIEF CPT-89886 Administration single or combination vac cine inc oral 09:45:00 CDT CPT-26148 Influenza Preservative Free split virus >age 3 09:45:00 CDT CPT-99787 Venipuncture Draw Fee 07:59:02 CDT
--- OUTSIDE RECORDS SUMMARY | 2019-10-10 20:39 | XMS REPORT | Clinical Summary ---
Author Author Admin, Son Rodriguez [facility] Address Unknown Phone Unavailable Allergies, [...] Frances MD 20 weeks gestation of ICD-V28.9 [facility] clarence Hayes LRT Medication List Medication Instructions Start Date Stop Date Generic Name NDC Status Provider Patient Instruction LATUDA 20 MG ORAL TABS LURASIDONE HCL 2008824 0230 Active Breanne Madl BACKBREAKER Active CEPHALEXIN 500 MG ORAL CAPS CEPHALEXIN 377743 27052 Active Breanne Madl BACKBREAKER Active LORATADINE 10 MG TABS 1 tablet by mouth daily L ORATADINE 91882362440 No Longer Active Breanne Madl BACKBREAKER Active HYDROXYZINE HCL 25 MG TABS Take 1-2 tablets daily 2015 HYDROXYZINE HCL 84900984935 No Longer Active Breanne Myersl BACKBREAKER Active ORTHO TRI-CYCLEN (28) 0.18/0.215/0.25 MG-35 MCG TABS 1 daily NORGESTIM-ETH ESTRAD TRIPHASIC 57653940744 No Longer Active Breanne Madl BACKBREAKER Active CLARITIN 10 MG TAB 1 tablet by mouth daily as needed for itchy r khari LORATADINE 95655373729 No Longer Active Ned Navarrete MD Active AUGMENTIN 875-125 MG TAB 1 po BID x 10 days with food AMOXICILLIN-POT CLAVULANATE 40735372932 No Longer Active Toni Washington DO Active ORTHO TRI-CYCLEN (28) 0.18/0.215/0.25 MG-35 MCG TABS 1 daily NORGESTIM-ETH ESTRAD TRIPHASIC 37629938897 No Longer Active Ned Navarrete MD Active ZOFRAN ODT 4 MG TBDP 1 po q6hr PRN Nausea ONDAN SETRON 92479008298 No Longer Active Ned Navarrete MD Active [facility] 3 MG TABS Take 1 tablet at bedtime. 2013 MELATONIN 88687457297 No Longer Active Ned Navarrete MD Activ e BIOTIN 1000 MCG TABS Take 2 tablets daily BIOTI N 19775759552 No Longer Active Ned Navarrete MD Active OMEPRAZOLE 20 MG CPDR 1 tablet by mouth daily O MEPRAZOLE 40191447284 No Longer Active Mariana Moses APRN Active LATUDA 80 MG TABS 1 tablet daily LURASIDONE HCL 63132722070 No Longer Active Mariana Moses APRN Active ZOVIRAX 400 MG TABS Take 1 tablet every 8 hours as needed 2 ACYCLOVIR 07287839456 No Longer Active Ned Navarrete MD Activ e ZITHROMAX Z-CHACE 250 MG TABS 2 today, then 1 daily for 4 days 201 10/06/11 AZITHROMYCIN 96921350191 No Longer Active Ned Navarrete MD Active TOPAMAX 100 MG TABS 1 tablet daily TOPIRAMATE 54 820828808 No Longer Active Ned Navarrete MD Active AMOXICILLIN 500 MG CAPS 2 po BID x 10 days AMOX ICILLIN 82300129621 No Longer Active Saskia Simon MD PhD Active NAPROSYN 375 MG TAB 1 twice a day as needed for chest pain 04/01 NAPROXEN 13261325041 No Longer Active Saskia Simon MD PhD Active HYDROCORTISONE 2.5 % EXT CREA Apply three times a day to aff ected area HYDROCORTISONE 93455855532 No Longer Active Ned Navarrete MD Active TOPIRAMATE 50 MG TABS 1 QD TOPIRAMATE 58519476630 No Longer Active Ned Navarrete MD Active FANAPT 6 MG TABS 1 BID ILOPERIDONE 39283632064 No L onger Active Ned Navarrete MD Active CIPROFLOXACIN HCL 0.3 % SOLN 1 drop in right eye every 2 hours for 2 days, then 1 drop four times a day CIPROFLOXACIN HCL 00710638349 No Longer Active Ned Navarrete MD Active LORATADINE 10 MG TABS 1 tablet by mouth daily L ORATADINE 66406735106 No Longer Active Ned Navarrete MD Active RANITIDINE HCL 150 MG CAPS 1 twice a day RANITI DINE HCL 96419608616 No Longer Active Ned Navarrete MD Active RANITIDINE HCL 150 MG CAPS 1 twice a day RANITIDINE HCL 150 MG CAPS 503674 RANITIDINE HCL Inactive LORATADINE 10 MG TABS 1 tablet by mouth daily LORATADINE 10 MG TABS 296338 LORATADINE Inactive CIPROFLOXACIN HCL 0.3 % SOLN 1 drop in right eye every 2 hours for 2 days, then 1 drop four times a day CIPROFLOXACIN HCL 0.3 % SOLN 018592 CIPROFLOXACIN HCL Inactive FANAPT 6 MG TABS 1 BID FANAPT 6 MG TABS ILO PERIDONE Inactive TOPIRAMATE 50 MG TABS 1 QD TOPIRAMATE 50 MG TABS 1 23630 TOPIRAMATE Inactive HYDROCORTISONE 2.5 % EXT CREA Apply three times a day to aff ected area HYDROCORTISONE 2.5 % EXT CREA 350611 HYDROCORTIS ONE Inactive NAPROSYN 375 MG TAB 1 twice a day as needed for chest pain 04/01 NAPROSYN 375 MG TAB NAPROXEN Inactive TOPAMAX 100 MG TABS 1 tablet daily TOPAMAX 100 MG TABS 943892 TOPIRAMATE Inactive ZOVIRAX 400 MG TABS Take 1 tablet every 8 hours as needed 2 ZOVIRAX 400 MG TABS 949256 ACYCLOVIR Inactive LATUDA 80 MG TABS 1 tablet daily LATUDA 80 MG TA BS LURASIDONE HCL Inactive OMEPRAZOLE 20 MG CPDR 1 tablet by mouth daily OMEPRAZOLE 20 MG CPDR 188378 OMEPRAZOLE Inactive BIOTIN 1000 MCG TABS Take 2 tablets daily BIOTIN 1000 MCG TABS 590336 BIOTIN Inactive [facility] M[facility] 3 MG TABS Take 1 tablet at bedtime. 2013 [facility] MEL[facility] 3 MG TABS 499736 MELATONIN Inactive ZOFRAN ODT 4 MG TBDP 1 po q6hr PRN Nausea ZOFRAN ODT 4 MG TBDP 358376 ONDANSETRON Inactive ORTHO TRI-CYCLEN (28) 0.18/0.215/0.25 MG-35 MCG TABS 1 daily ORTHO TRI-CYCLEN (28) 0.18/0.215/0.25 MG-35 MCG TABS 632836 NORGESTIM-ETH ESTRAD TRIPHASIC Inactive CLARITIN 10 MG TAB 1 tablet by mouth daily as needed for itchy r khari CLARITIN 10 MG TAB 205076 LORATADINE Inactive ORTHO TRI-CYCLEN (28) 0.18/0.215/0.25 MG-35 MCG TABS 1 daily ORTHO TRI-CYCLEN (28) 0.18/0.215/0.25 MG-35 MCG TABS 870165 NORGESTIM-ETH ESTRAD TRIPHASIC Inactive HYDROXYZINE HCL 25 MG TABS Take 1-2 tablets daily 2015 HYDROXYZINE HCL 25 MG TABS 310202 HYDROXYZINE HCL Inactive LORATADINE 10 MG TABS 1 tablet by mouth daily LORATADINE 10 MG TABS 358925 LORATADINE Inactive AMOXICILLIN 500 MG CAPS 2 po BID x 10 days AMOXICILLIN 500 MG CAPS 047048 AMOXICILLIN Inactive ZITHROMAX Z-CHACE 250 MG TABS 2 today, then 1 daily for 4 days 201 10/06/11 ZITHROMAX Z-CHACE 250 MG TABS 7315946 AZITHROMYCIN Inac tive AUGMENTIN 875-125 MG TAB 1 po BID x 10 days with food AUGMENTIN 875-125 MG TAB 674504 AMOXICILLIN-POT CLAVULANATE Inactiv e Advance Directives Directive [...] 18 yo)) Fluzone preservative free (>3 yrs.) [UWP280] Influenza, seasonal, injectable, preservative free MPSV4 (meningococcal polysaccharide vaccination) Menactra meningococcal polysaccharide vaccine (MPSV4) hepatitis A immunization #1 Havrix-Pedi hepa titis A vaccine, unspecified formulation Adacel (Tetanus, reduced Diphtheria, and acellular Per tussis Immunization) Adacel [[id number]] tetanus toxoid, reduced diph theria toxoid, and acellular pertussis vaccine, adsorbed influenza immunization (Flu Vax) has been administered 2 Historical influenza virus vaccine, unspecified formulation oral polio vaccine (OPV) #4 Historical acse ovirus vaccine, unspecified formulation MMR (measles, mumps, [...] conjugate unspecified formulation DPT immunization #2 Historical oral polio vaccine (OPV) #2 Historical case ovirus vaccine, unspecified formulation Hemophilus influenza B immunization #2 Historica l Haemophilus influenzae type b vaccine, conjugate unspecified formulation DPT immunization #1 Historical hepatitis B vaccine #2 given Historical hep atitis B vaccine, unspecified formulation oral polio vaccine (OPV) #1 Historical case ovirus vaccine, unspecified formulation Hemophilus influenza B immunization [...] 11 .0-15.0 platelet count 210 THOUSAND/UL 10*3/mm3 009-460 0212/11/02 mean platelet volume 10.3 fL 7.5-11.5 Lab [...] Negative Negati ve bilirubin, urine Negative Negative Encounters Code Encounter Date Provider Facility CPT-53725 Level 2 Est. Patient 12:43:40 CDT Ned Navarrete MD [facility]-38962 Level 3 Est. Patient 14:38:48 CDT Toni duque DO [facility]-38722 Level 3 Est. Patient 09:02:58 FOOD SANITARIAN George paulson MD [facility]-70820 Level 3 Est. Patient 17:42:32 CDT Ned Navarrete MD [facility]-61856 Level 3 Est. Patient 11:04:31 FOOD SANITARIAN Mariana Torrez APRN [facility]-72121 Level 4 Est. Patient 12:27:05 FOOD SANITARIAN Ned Navarrete MD [facility]-13534 Level 3 Est. Patient 11:31:58 FOOD SANITARIAN Ned Navarrete MD [facility]-56277 Level 3 Est. Patient 16:49:32 CDT Ned Navarrete MD [facility]-44251 Level 4 Est. Patient 14:11:59 FOOD SANITARIAN Saskia green MD PhD [facility][note 3]46857 Level 3 Est. Patient 17:34:25 CDT Ned Navarrete MD [facility]-74832 Level 3 Est. Patient 17:34:19 CDT Ned Navarrete MD [facility]-12868 Level 3 Est. Patient 13:46:05 CDT Ned Navarrete MD [facility] CPT-86929 Level 3 Est. Patient 16:55:47 FOOD SANITARIAN Ned Navarrete MD [facility] CPT-81691 Level 2 Est. Patient 17:33:08 FOOD SANITARIAN Ned Navarrete MD [facility] CPT-58953 Level 3 Est. Patient 16:25:26 FOOD SANITARIAN Ned Navarrete MD [facility] Procedures Code Procedure Name Date Entry Date Standard Desc ription CPT-07059 Sono OB comp > 14 weeks - XRAY USE ONLY 17:00:59 FOOD SANITARIAN CPT-10177 UA w micro - LAB USE ONLY 16:59:38 CDT 2015 CPT-23036 TSH - LAB USE ONLY 16:59:38 CDT CPT-59010 Venipuncture Draw Fee 16:59:38 CDT CPT-95594 Spec Collection and Handling Fee 14:01:24 C DT CPT-50127 Visit 14:01:24 CDT CPT-033 [facility] Med Screen 14:03:18 CDT CPT-033 KB Med Screen 11:04:57 CDT CPT-033 KB Med Screen 10:29:44 CDT CPT-20082 Administration 2+ single or combination vaccines inc oral 14:02:47 FOOD SANITARIAN CPT-41682 Administration single or combination vac cine inc oral 14:02:47 FOOD SANITARIAN CPT-82494 Hepatitis A ped/adol 2 dose schedule 14:02:47 FOOD SANITARIAN CPT-73633 Gardasil 14:02:47 FOOD SANITARIAN CPT-50328 Administration single or combination vac cine inc oral 11:40:38 FOOD SANITARIAN CPT-96639 Gardasil 11:40:38 FOOD SANITARIAN CPT-53795 Administration single or combination vac cine inc oral 09:45:00 CDT CPT-86042 Influenza Preservative Free split virus >age 3 09:45:00 CDT CPT-92218 Venipuncture Draw Fee 07:59:02 CDT
--- OUTSIDE RECORDS SUMMARY | 2019-10-10 20:39 | XMS REPORT | Clinical Summary ---
Author Author Admin, Son Chan Organization [employer] Address Unknown Phone Unavailable Allergies, Adverse Reactions, [...] 1 herman ly for 3 days PREDNISONE 19405249306 No Longer Active Ned pérez MD Active CEPHALEXIN 500 MG ORAL CAPS CEPHALEXIN 60980469987 No Longer Active Ned Navarrete MD Active LATUDA 20 MG ORAL TABS LURASIDONE HCL 9661225 0230 Active Breanne Madl TAKE DOWN INSPECTOR Active LORATADINE 10 MG TABS 1 tablet by mouth daily L ORATADINE 04596405087 No Longer Active Breanne Madl TAKE DOWN INSPECTOR Active HYDROXYZINE HCL 25 MG TABS Take 1-2 tablets daily 2015 HYDROXYZINE HCL 42050586758 No Longer Active Breanne Madl TAKE DOWN INSPECTOR Active ORTHO TRI-CYCLEN (28) 0.18/0.215/0.25 MG-35 MCG TABS 1 daily NORGESTIM-ETH ESTRAD TRIPHASIC 15866193604 No Longer Active Breanne Madl TAKE DOWN INSPECTOR Active CLARITIN 10 MG TAB 1 tablet by mouth daily as needed for itchy r khari LORATADINE 34236319070 No Longer Active Ned Navarrete MD Active AUGMENTIN 875-125 MG TAB 1 po BID x 10 days with food AMOXICILLIN-POT CLAVULANATE 26713174798 No Longer Active Toni Washington DO Active ORTHO TRI-CYCLEN (28) 0.18/0.215/0.25 MG-35 MCG TABS 1 daily NORGESTIM-ETH ESTRAD TRIPHASIC 51262404911 No Longer Active Ned Navarrete MD Active ZOFRAN ODT 4 MG TBDP 1 po q6hr PRN Nausea ONDAN SETRON 58556478737 No Longer Active Ned Navarrete MD Active [facility]EL[facility] 3 MG TABS Take 1 tablet at bedtime. 2013 MELATONIN 44414731981 No Longer Active Ned Navarrete MD Activ e BIOTIN 1000 MCG TABS Take 2 tablets daily BIOTI N 71533011003 No Longer Active Ned Navarrete MD Active OMEPRAZOLE 20 MG CPDR 1 tablet by mouth daily O MEPRAZOLE 30887133669 No Longer Active Mariana Moses APRN Active LATUDA 80 MG TABS 1 tablet daily LURASIDONE HCL 10965600301 No Longer Active Mariana Moses APRN Active ZOVIRAX 400 MG TABS Take 1 tablet every 8 hours as needed 2 ACYCLOVIR 94094170522 No Longer Active Ned Navarrete MD Activ e ZITHROMAX Z-CHACE 250 MG TABS 2 today, then 1 daily for 4 days 201 10/06/11 AZITHROMYCIN 31341876844 No Longer Active Ned Navarrete MD Active TOPAMAX 100 MG TABS 1 tablet daily TOPIRAMATE 54 525226222 No Longer Active Ned Navarrete MD Active AMOXICILLIN 500 MG CAPS 2 po BID x 10 days AMOX ICILLIN 86431652867 No Longer Active Saskia Simon MD PhD Active NAPROSYN 375 MG TAB 1 twice a day as needed for chest pain 04/01 NAPROXEN 13162195456 No Longer Active Saskia Simon MD PhD Active HYDROCORTISONE 2.5 % EXT CREA Apply three times a day to aff ected area HYDROCORTISONE 19073250115 No Longer Active Ned Navarrete MD Active TOPIRAMATE 50 MG TABS 1 QD TOPIRAMATE 30815858573 No Longer Active Ned Navarrete MD Active FANAPT 6 MG TABS 1 BID ILOPERIDONE 68705915756 No L onger Active Ned Navarrete MD Active CIPROFLOXACIN HCL 0.3 % SOLN 1 drop in right eye every 2 hours for 2 days, then 1 drop four times a day CIPROFLOXACIN HCL 83005810344 No Longer Active Ned Navarrete MD Active LORATADINE 10 MG TABS 1 tablet by mouth daily L ORATADINE 64393973355 No Longer Active Ned Navarrete MD Active RANITIDINE HCL 150 MG CAPS 1 twice a day RANITI DINE HCL 52474795811 No Longer Active Ned Navarrete MD Active RANITIDINE HCL 150 MG CAPS 1 twice a day RANITIDINE HCL 150 MG CAPS 309483 RANITIDINE HCL Inactive LORATADINE 10 MG TABS 1 tablet by mouth daily LORATADINE 10 MG TABS 360590 LORATADINE Inactive CIPROFLOXACIN HCL 0.3 % SOLN 1 drop in right eye every 2 hours for 2 days, then 1 drop four times a day CIPROFLOXACIN HCL 0.3 % SOLN 140132 CIPROFLOXACIN HCL Inactive FANAPT 6 MG TABS 1 BID FANAPT 6 MG TABS ILO PERIDONE Inactive TOPIRAMATE 50 MG TABS 1 QD TOPIRAMATE 50 MG TABS 1 50649 TOPIRAMATE Inactive HYDROCORTISONE 2.5 % EXT CREA Apply three times a day to aff ected area HYDROCORTISONE 2.5 % EXT CREA 746175 HYDROCORTIS ONE Inactive NAPROSYN 375 MG TAB 1 twice a day as needed for chest pain 04/01 NAPROSYN 375 MG TAB NAPROXEN Inactive TOPAMAX 100 MG TABS 1 tablet daily TOPAMAX 100 MG TABS 020402 TOPIRAMATE Inactive ZOVIRAX 400 MG TABS Take 1 tablet every 8 hours as needed 2 ZOVIRAX 400 MG TABS 955429 ACYCLOVIR Inactive LATUDA 80 MG TABS 1 tablet daily LATUDA 80 MG TA BS LURASIDONE HCL Inactive OMEPRAZOLE 20 MG CPDR 1 tablet by mouth daily OMEPRAZOLE 20 MG CPDR 846152 OMEPRAZOLE Inactive BIOTIN 1000 MCG TABS Take 2 tablets daily BIOTIN 1000 MCG TABS 542510 BIOTIN Inactive [facility] 3 MG TABS Take 1 tablet at bedtime. 2013 [facility] 3 MG TABS 989884 MELATONIN Inactive ZOFRAN ODT 4 MG TBDP 1 po q6hr PRN Nausea ZOFRAN ODT 4 MG TBDP 745785 ONDANSETRON Inactive ORTHO TRI-CYCLEN (28) 0.18/0.215/0.25 MG-35 MCG TABS 1 daily ORTHO TRI-CYCLEN (28) 0.18/0.215/0.25 MG-35 MCG TABS 373000 NORGESTIM-ETH ESTRAD TRIPHASIC Inactive CLARITIN 10 MG TAB 1 tablet by mouth daily as needed for itchy r khari CLARITIN 10 MG TAB 307637 LORATADINE Inactive ORTHO TRI-CYCLEN (28) 0.18/0.215/0.25 MG-35 MCG TABS 1 daily ORTHO TRI-CYCLEN (28) 0.18/0.215/0.25 MG-35 MCG TABS 852566 NORGESTIM-ETH ESTRAD TRIPHASIC Inactive HYDROXYZINE HCL 25 MG TABS Take 1-2 tablets daily 2015 HYDROXYZINE HCL 25 MG TABS 573597 HYDROXYZINE HCL Inactive LORATADINE 10 MG TABS 1 tablet by mouth daily LORATADINE 10 MG TABS 386463 LORATADINE Inactive CEPHALEXIN 500 MG ORAL CAPS CEPHALEX IN 500 MG ORAL CAPS 193752 CEPHALEXIN Inactive PREDNISONE 20 MG TABS Take 2 daily for 3 days and then 1 herman ly for 3 days PREDNISONE 20 MG TABS 717344 PREDNISONE Inacti ve AMOXICILLIN 500 MG CAPS 2 po BID x 10 days AMOXICILLIN 500 MG CAPS 570413 AMOXICILLIN Inactive ZITHROMAX Z-CHACE 250 MG TABS 2 today, then 1 daily for 4 days 201 10/06/11 ZITHROMAX Z-CHACE 250 MG TABS 0679268 AZITHROMYCIN Inac tive AUGMENTIN 875-125 MG TAB 1 po BID x 10 days with food AUGMENTIN 875-125 MG TAB 003624 AMOXICILLIN-POT CLAVULANATE Inactiv e Advance Directives Directive [...] 18 yo)) Fluzone preservative free (>3 yrs.) [NCT604] Influenza, seasonal, injectable, preservative free MPSV4 (meningococcal polysaccharide vaccination) Menactra meningococcal polysaccharide vaccine (MPSV4) hepatitis A immunization #1 Havrix-Pedi hepa titis A vaccine, unspecified formulation Adacel (Tetanus, reduced Diphtheria, and acellular Per tussis Immunization) Adacel [NPW813] tetanus toxoid, reduced diph theria toxoid, and [...] 11 .0-15.0 platelet count 210 THOUSAND/UL 10*3/mm3 741-688 8048/11/02 mean platelet volume 10.3 fL 7.5-11.5 Lab [...] N Encounters Code Encounter Date Provider Facility CPT-56711 Level 3 Est. Patient 15:21:38 BOMB LOADER Rayna Pepper [facility] CPT-12852 Level 3 Est. Patient 15:35:51 BOMB LOADER [facility] CPT-70619 Level 2 Est. Patient 12:43:40 CDT Ned Navarrete MD [facility] CPT-72074 Level 3 Est. Patient 14:38:48 CDT Toni duque DO [facility] CPT-03673 Level 3 Est. Patient 09:02:58 BOMB LOADER George paulson MD [facility] CPT-16364 Level 3 Est. Patient 17:42:32 CDT Ned Navarrete MD [facility] CPT-67520 Level 3 Est. Patient 11:04:31 BOMB LOADER Mariana Torrez [facility] CPT-90686 Level 4 Est. Patient 12:27:05 BOMB LOADER Ned Navarrete MD [facility] CPT-85608 Level 3 Est. Patient 11:31:58 BOMB LOADER Ned Navarrete MD [facility] CPT-92430 Level 3 Est. Patient 16:49:32 CDT Ned Navarrete MD [facility] CPT-23339 Level 4 Est. Patient 14:11:59 BOMB LOADER Saskia green MD PhD [facility] CPT-67329 Level 3 Est. Patient 17:34:25 CDT Ned Navarrete MD [facility] CPT-53780 Level 3 Est. Patient 17:34:19 CDT Ned Navarrete MD [facility] CPT-97174 Level 3 Est. Patient 13:46:05 CDT Ned Navarrete MD [facility] CPT-47133 Level 3 Est. Patient 16:55:47 BOMB LOADER Ned Navarrete MD [facility] CPT-75459 Level 2 Est. Patient 17:33:08 BOMB LOADER Ned Navarrete MD [facility] CPT-63591 Level 3 Est. Patient 16:25:26 BOMB LOADER Ned Navarrete MD [facility] Procedures Code Procedure Name Date Entry Date Standard Desc ription CPT-00248 Visit 15:57:29 CDT CPT-10510 First Vx - Ix admin via ID I M or jet injects without counseling by physician 15:53:15 CDT CPT-80515 Boostrix Intramuscular Suspension 5-2.5-18.5 201 01/28/11 15:53:14 CDT CPT-79347 Tdap 7yrs or > 14:41:06 CDT CPT-85971 Visit 17:47:08 CDT CPT-37858 OBGTT 1 - LAB USE ONLY 10:15:57 CDT CPT-34608 Venipuncture Draw Fee 10:15:57 CDT CPT-40860 Visit 15:07:16 BOMB LOADER CPT-99935 Visit 16:49:41 BOMB LOADER CPT-98089 Sono OB limited - XRAY USE ONLY 16:38:01 CS T CPT-91179 Sono OB comp > 14 weeks - XRAY USE ONLY 17:00:59 BOMB LOADER CPT-72978 UA w micro - LAB USE ONLY 16:59:38 CDT 2015 CPT-61911 TSH - LAB USE ONLY 16:59:38 CDT CPT-25787 Venipuncture Draw Fee 16:59:38 CDT CPT-26187 Spec Collection and Handling Fee 14:01:24 C DT CPT-98837 Visit 14:01:24 CDT CPT-033 KB Med Screen 14:03:18 CDT CPT-033 KB Med Screen 11:04:57 CDT CPT-033 KB Med Screen 10:29:44 CDT CPT-13338 Administration 2+ single or combination vaccines inc oral 14:02:47 BOMB LOADER CPT-71266 Administration single or combination vac cine inc oral 14:02:47 BOMB LOADER CPT-06885 Hepatitis A ped/adol 2 dose schedule 14:02:47 BOMB LOADER CPT-81037 Gardasil 14:02:47 BOMB LOADER CPT-00274 Administration single or combination vac cine inc oral 11:40:38 BOMB LOADER CPT-50490 Gardasil 11:40:38 BOMB LOADER CPT-86970 Administration single or combination vac cine inc oral 09:45:00 CDT CPT-96457 Influenza Preservative Free split virus >age 3 09:45:00 CDT CPT-76826 Venipuncture Draw Fee 07:59:02 CDT
--- OUTSIDE RECORDS SUMMARY | 2019-10-10 20:39 | XMS REPORT | Clinical Summary ---
Author Author Beka, Son Rodriguez [facility] Address Unknown Phone Unavailable Allergies, Adverse Reactions, [...] Saskia Simon MD PhD COSTOCHONDRITIS ICD-733.6 Inactive Saskai Simon MD PhD CONCUSSION WITH NO LOSS OF CONSCIOUSNESS ICD-850.0 Inactive Ned Navarrete MD SINUSITIS, ACUTE ICD-461.9 Inactive Ned pérez MD Pharyngitis, acute ICD-462 Inactive Ned Navarrete MD Medication List Medication Instructions Start Date Stop Date Generic Name NDC Status Provider Patient Instruction ORTHO TRI-CYCLEN (28) 0.18/0.215/0.25 MG-35 MCG TABS 1 daily 2 NORGESTIM-ETH ESTRAD TRIPHASIC [id number] Active Tiffany Brennan Active ORTHO TRI-CYCLEN (28) 0.18/0.215/0.25 MG-35 MCG TABS 1 daily NORGESTIM-ETH ESTRAD TRIPHASIC 23476001707 No Longer Active Ned Navarrete MD Active ZOFRAN ODT 4 MG TBDP 1 po q6hr PRN Nausea ONDAN SETRON 60055651034 No Longer Active Ned Navarrete MD Active [facility] MELATONIN 3 MG TABS Take 1 tablet at bedtime. 2013 MELATONIN 40950521633 No Longer Active Ned Navarrete MD Activ e BIOTIN 1000 MCG TABS Take 2 tablets daily BIOTI N 77216965979 No Longer Active Ned Navarrete MD Active OMEPRAZOLE 20 MG CPDR 1 tablet by mouth daily O MEPRAZOLE 84499179861 No Longer Active Mariana Moses APRN Active LATUDA 80 MG TABS 1 tablet daily LURASIDONE HCL 89048860507 No Longer Active Mariana Moses APRN Active ZOVIRAX 400 MG TABS Take 1 tablet every 8 hours as needed 2 ACYCLOVIR 44615126795 No Longer Active Ned Navarrete MD Activ e ZITHROMAX Z-CHACE 250 MG TABS 2 today, then 1 daily for 4 days 201 10/06/11 AZITHROMYCIN 50438484305 No Longer Active Ned Navarrete MD Active HYDROXYZINE HCL 25 MG TABS Take 1-2 tablets daily HYDROXYZINE HCL 92462203322 Active Ned Navarrete MD Active TOPAMAX 100 MG TABS 1 tablet daily TOPIRAMATE 54 878696100 No Longer Active Ned Navarrete MD Active AMOXICILLIN 500 MG CAPS 2 po BID x 10 days AMOX ICILLIN 98931256076 No Longer Active Saskia Simon MD PhD Active NAPROSYN 375 MG TAB 1 twice a day as needed for chest pain 04/01 NAPROXEN 50031774528 No Longer Active Saskia Simon MD PhD Active HYDROCORTISONE 2.5 % EXT CREA Apply three times a day to aff ected area HYDROCORTISONE 09634528831 No Longer Active Ned Navarrete MD Active LORATADINE 10 MG TABS 1 tablet by mouth daily L ORATADINE 55183484732 Active Ned Navarrete MD Active TOPIRAMATE 50 MG TABS 1 QD TOPIRAMATE 57292318428 No Longer Active Ned Navarrete MD Active FANAPT 6 MG TABS 1 BID ILOPERIDONE 69619929969 No L onger Active Ned Navarrete MD Active CIPROFLOXACIN HCL 0.3 % SOLN 1 drop in right eye every 2 hours for 2 days, then 1 drop four times a day CIPROFLOXACIN HCL 19537116929 No Longer Active Ned Navarrete MD Active LORATADINE 10 MG TABS 1 tablet by mouth daily L ORATADINE 89848624495 No Longer Active Ned Navarrete MD Active RANITIDINE HCL 150 MG CAPS 1 twice a day RANITI DINE HCL 64204061377 No Longer Active Ned Navarrete MD Active RANITIDINE HCL 150 MG CAPS 1 twice a day RANITIDINE HCL 150 MG CAPS 276941 RANITIDINE HCL Inactive LORATADINE 10 MG TABS 1 tablet by mouth daily LORATADINE 10 MG TABS 430118 LORATADINE Inactive CIPROFLOXACIN HCL 0.3 % SOLN 1 drop in right eye every 2 hours for 2 days, then 1 drop four times a day CIPROFLOXACIN HCL 0.3 % SOLN 381961 CIPROFLOXACIN HCL Inactive FANAPT 6 MG TABS 1 BID FANAPT 6 MG TABS ILO PERIDONE Inactive TOPIRAMATE 50 MG TABS 1 QD TOPIRAMATE 50 MG TABS 1 21145 TOPIRAMATE Inactive HYDROCORTISONE 2.5 % EXT CREA Apply three times a day to aff ected area HYDROCORTISONE 2.5 % EXT CREA 836120 HYDROCORTIS ONE Inactive NAPROSYN 375 MG TAB 1 twice a day as needed for chest pain 04/01 NAPROSYN 375 MG TAB 19790729 NAPROXEN Inactive TOPAMAX 100 MG TABS 1 tablet daily TOPAMAX 100 MG TABS 748760 TOPIRAMATE Inactive ZOVIRAX 400 MG TABS Take 1 tablet every 8 hours as needed 2 ZOVIRAX 400 MG TABS 966565 ACYCLOVIR Inactive LATUDA 80 MG TABS 1 tablet daily LATUDA 80 MG TA BS LURASIDONE HCL Inactive OMEPRAZOLE 20 MG CPDR 1 tablet by mouth daily OMEPRAZOLE 20 MG CPDR 679360 OMEPRAZOLE Inactive BIOTIN 1000 MCG TABS Take 2 tablets daily BIOTIN 1000 MCG TABS 874196 BIOTIN Inactive [facility] MEL[facility]IN 3 MG TABS Take 1 tablet at bedtime. 2013 [facility] MEL[facility]IN 3 MG TABS 548260 MELATONIN Inactive ZOFRAN ODT 4 MG TBDP 1 po q6hr PRN Nausea ZOFRAN ODT 4 MG TBDP 573461 ONDANSETRON Inactive ORTHO TRI-CYCLEN (28) 0.18/0.215/0.25 MG-35 MCG TABS 1 daily ORTHO TRI-CYCLEN (28) 0.18/0.215/0.25 MG-35 MCG TABS 127311 NORGESTIM-ETH ESTRAD TRIPHASIC Inactive AMOXICILLIN 500 MG CAPS 2 po BID x 10 days AMOXICILLIN 500 MG CAPS 670716 AMOXICILLIN Inactive ZITHROMAX Z-CHACE 250 MG TABS 2 today, then 1 daily for 4 days 201 10/06/11 ZITHROMAX Z-CHACE 250 MG TABS 7633554 AZITHROMYCIN Inac tive Advance Directives Directive Description [...] 18 yo)) Fluzone preservative free (>3 yrs.) [[id number]] Influenza, seasonal, injectable, preservative free MPSV4 (meningococcal polysaccharide vaccination) Menactra meningococcal polysaccharide vaccine (MPSV4) hepatitis A immunization #1 Havrix-Pedi hepa titis A vaccine, unspecified formulation Adacel (Tetanus, reduced Diphtheria, and acellular Per tussis Immunization) Adacel [[id number]] tetanus toxoid, reduced diph theria toxoid, and [...] Name Value Unit Range Description Lab Report: [facility] - Chemistry human chorionic gonadotropin , urine, qualitative (urine test) Negative Negative Encounters Code Encounter Date Provider Facility CPT-55497 Level 3 Est. Patient 17:42:32 CDT Ned Navarrete MD [facility] CPT-08385 Level 3 Est. Patient 11:04:31 CHARGE AIDE Mariana Torrez APRN [facility] CPT-73893 Level 4 Est. Patient 12:27:05 CHARGE AIDE Ned Navarrete MD [facility] CPT-73287 Level 3 Est. Patient 11:31:58 CHARGE AIDE Ned Navarrete MD [facility] CPT-76285 Level 3 Est. Patient 16:49:32 CDT Ned Navarrete MD [facility] CPT-05129 Level 4 Est. Patient 14:11:59 CHARGE AIDE Saskia green MD PhD [facility] CPT-26961 Level 3 Est. Patient 17:34:25 CDT Ned Navarrete MD [facility] CPT-13916 Level 3 Est. Patient 17:34:19 CDT Ned Navarrete MD [facility] CPT-76338 Level 3 Est. Patient 13:46:05 CDT Ned Navarrete MD [facility] CPT-07136 Level 3 Est. Patient 16:55:47 CHARGE AIDE Ned Navarrete MD [facility] CPT-17996 Level 2 Est. Patient 17:33:08 CHARGE AIDE Ned Navarrete MD [facility] CPT-36431 Level 3 Est. Patient 16:25:26 CHARGE AIDE Ned Navarrete MD [facility] Procedures Code Procedure Name Date Entry Date Standard Desc ription CPT-033 [facility] Med Screen 10:29:44 CDT CPT-42769 Administration 2+ single or combination vaccines inc oral 14:02:47 CHARGE AIDE CPT-05459 Administration single or combination vac cine inc oral 14:02:47 CHARGE AIDE CPT-15366 Hepatitis A ped/adol 2 dose schedule 14:02:47 CHARGE AIDE CPT-57673 Gardasil 14:02:47 CHARGE AIDE CPT-81195 Administration single or combination vac cine inc oral 11:40:38 CHARGE AIDE CPT-83880 Gardasil 11:40:38 CHARGE AIDE CPT-45563 Administration single or combination vac cine inc oral 09:45:00 CDT CPT-51718 Influenza Preservative Free split virus >age 3 09:45:00 CDT CPT-05179 Venipuncture Draw Fee 07:59:02 CDT
--- OUTSIDE RECORDS SUMMARY | 2019-10-10 20:40 | XMS REPORT | Clinical Summary ---
Author Author Admin, Son Chan Organization [employer] Address Unknown Phone Unavailable Allergies, Adverse Reactions, [...] 1 daily for contraception NORGESTIM-ETH ESTRAD TRIPHASIC 16562718785 Active Ned Navarrete MD Active LATUDA 20 MG ORAL TABS LURASIDONE HCL 40150331903 No Longer Active Ned Navarrete MD Active PREDNISONE 20 MG TABS Take 2 daily for 3 days and then 1 herman ly for 3 days PREDNISONE 31716269955 No Longer Active Ned pérez MD Active CEPHALEXIN 500 MG ORAL CAPS CEPHALEXIN 72784929334 No Longer Active Ned Navarrete MD Active LORATADINE 10 MG TABS 1 tablet by mouth daily L ORATADINE 07366747293 No Longer Active Breanne Madl CERTIFIED INDUSTRIAL HYGIENIST Active HYDROXYZINE HCL 25 MG TABS Take 1-2 tablets daily 2015 HYDROXYZINE HCL 30917294490 No Longer Active Breanne Madl CERTIFIED INDUSTRIAL HYGIENIST Active ORTHO TRI-CYCLEN (28) 0.18/0.215/0.25 MG-35 MCG TABS 1 daily NORGESTIM-ETH ESTRAD TRIPHASIC 53297695435 No Longer Active Breanne Madl CERTIFIED INDUSTRIAL HYGIENIST Active CLARITIN 10 MG TAB 1 tablet by mouth daily as needed for itchy r khari LORATADINE 37285965713 No Longer Active Ned Navarrete MD Active AUGMENTIN 875-125 MG TAB 1 po BID x 10 days with food AMOXICILLIN-POT CLAVULANATE 73453805818 No Longer Active Toni Washington DO Active ORTHO TRI-CYCLEN (28) 0.18/0.215/0.25 MG-35 MCG TABS 1 daily NORGESTIM-ETH ESTRAD TRIPHASIC 59345370767 No Longer Active Ned Navarrete MD Active ZOFRAN ODT 4 MG TBDP 1 po q6hr PRN Nausea ONDAN SETRON 54933871525 No Longer Active Ned Navarrete MD Active [facility] MELAT[facility]IN 3 MG TABS Take 1 tablet at bedtime. 2013 MELATONIN 77847187593 No Longer Active Ned Navarrete MD Activ e BIOTIN 1000 MCG TABS Take 2 tablets daily BIOTI N 11114241453 No Longer Active Ned Navarrete MD Active OMEPRAZOLE 20 MG CPDR 1 tablet by mouth daily O MEPRAZOLE 88727238379 No Longer Active Mariana Moses APRN Active LATUDA 80 MG TABS 1 tablet daily LURASIDONE HCL 20255339863 No Longer Active Mariana Moses APRN Active ZOVIRAX 400 MG TABS Take 1 tablet every 8 hours as needed 2 ACYCLOVIR 25440320912 No Longer Active Ned Navarrete MD Activ e ZITHROMAX Z-CHACE 250 MG TABS 2 today, then 1 daily for 4 days 201 10/06/11 AZITHROMYCIN 60737555869 No Longer Active Ned Navarrete MD Active TOPAMAX 100 MG TABS 1 tablet daily TOPIRAMATE 54 089071488 No Longer Active Ned Navarrete MD Active AMOXICILLIN 500 MG CAPS 2 po BID x 10 days AMOX ICILLIN 63507765460 No Longer Active Saskia Simon MD PhD Active NAPROSYN 375 MG TAB 1 twice a day as needed for chest pain 04/01 NAPROXEN 24084384942 No Longer Active Saskia Simon MD PhD Active HYDROCORTISONE 2.5 % EXT CREA Apply three times a day to aff ected area HYDROCORTISONE 70085802048 No Longer Active Ned Navarrete MD Active TOPIRAMATE 50 MG TABS 1 QD TOPIRAMATE 23924226327 No Longer Active Ned Navarrete MD Active FANAPT 6 MG TABS 1 BID ILOPERIDONE 08464267924 No L onger Active Ned Navarrete MD Active CIPROFLOXACIN HCL 0.3 % SOLN 1 drop in right eye every 2 hours for 2 days, then 1 drop four times a day CIPROFLOXACIN HCL 00500720120 No Longer Active Ned Navarrete MD Active LORATADINE 10 MG TABS 1 tablet by mouth daily L ORATADINE 72690231818 No Longer Active Ned Navarrete MD Active RANITIDINE HCL 150 MG CAPS 1 twice a day RANITI DINE HCL 96791421462 No Longer Active Ned Navarrete MD Active RANITIDINE HCL 150 MG CAPS 1 twice a day RANITIDINE HCL 150 MG CAPS 728550 RANITIDINE HCL Inactive LORATADINE 10 MG TABS 1 tablet by mouth daily LORATADINE 10 MG TABS 467328 LORATADINE Inactive CIPROFLOXACIN HCL 0.3 % SOLN 1 drop in right eye every 2 hours for 2 days, then 1 drop four times a day CIPROFLOXACIN HCL 0.3 % SOLN 633770 CIPROFLOXACIN HCL Inactive FANAPT 6 MG TABS 1 BID FANAPT 6 MG TABS ILO PERIDONE Inactive TOPIRAMATE 50 MG TABS 1 QD TOPIRAMATE 50 MG TABS 1 54004 TOPIRAMATE Inactive HYDROCORTISONE 2.5 % EXT CREA Apply three times a day to aff ected area HYDROCORTISONE 2.5 % EXT CREA 553009 HYDROCORTIS ONE Inactive NAPROSYN 375 MG TAB 1 twice a day as needed for chest pain 04/01 NAPROSYN 375 MG TAB NAPROXEN Inactive TOPAMAX 100 MG TABS 1 tablet daily TOPAMAX 100 MG TABS 747452 TOPIRAMATE Inactive ZOVIRAX 400 MG TABS Take 1 tablet every 8 hours as needed 2 ZOVIRAX 400 MG TABS 141835 ACYCLOVIR Inactive LATUDA 80 MG TABS 1 tablet daily LATUDA 80 MG TA BS LURASIDONE HCL Inactive OMEPRAZOLE 20 MG CPDR 1 tablet by mouth daily OMEPRAZOLE 20 MG CPDR 572550 OMEPRAZOLE Inactive BIOTIN 1000 MCG TABS Take 2 tablets daily BIOTIN 1000 MCG TABS 336949 BIOTIN Inactive [facility] MEL[facility]IN 3 MG TABS Take 1 tablet at bedtime. 2013 [facility] MEL[facility]IN 3 MG TABS 181850 MELATONIN Inactive ZOFRAN ODT 4 MG TBDP 1 po q6hr PRN Nausea ZOFRAN ODT 4 MG TBDP 729025 ONDANSETRON Inactive ORTHO TRI-CYCLEN (28) 0.18/0.215/0.25 MG-35 MCG TABS 1 daily ORTHO TRI-CYCLEN (28) 0.18/0.215/0.25 MG-35 MCG TABS 834536 NORGESTIM-ETH ESTRAD TRIPHASIC Inactive CLARITIN 10 MG TAB 1 tablet by mouth daily as needed for itchy r khari CLARITIN 10 MG TAB 666738 LORATADINE Inactive ORTHO TRI-CYCLEN (28) 0.18/0.215/0.25 MG-35 MCG TABS 1 daily ORTHO TRI-CYCLEN (28) 0.18/0.215/0.25 MG-35 MCG TABS 384252 NORGESTIM-ETH ESTRAD TRIPHASIC Inactive HYDROXYZINE HCL 25 MG TABS Take 1-2 tablets daily 2015 HYDROXYZINE HCL 25 MG TABS 110330 HYDROXYZINE HCL Inactive LORATADINE 10 MG TABS 1 tablet by mouth daily LORATADINE 10 MG TABS 249893 LORATADINE Inactive CEPHALEXIN 500 MG ORAL CAPS CEPHALEX IN 500 MG ORAL CAPS 181844 CEPHALEXIN Inactive PREDNISONE 20 MG TABS Take 2 daily for 3 days and then 1 herman ly for 3 days PREDNISONE 20 MG TABS 751258 PREDNISONE Inacti ve LATUDA 20 MG ORAL TABS LATUDA 20 MG OR AL TABS LURASIDONE HCL Inactive AMOXICILLIN 500 MG CAPS 2 po BID x 10 days AMOXICILLIN 500 MG CAPS 528927 AMOXICILLIN Inactive ZITHROMAX Z-CHACE 250 MG TABS 2 today, then 1 daily for 4 days 201 10/06/11 ZITHROMAX Z-CHACE 250 MG TABS 4436558 AZITHROMYCIN Inac tive AUGMENTIN 875-125 MG TAB 1 po BID x 10 days with food AUGMENTIN 875-125 MG TAB 126120 AMOXICILLIN-POT CLAVULANATE Inactiv e Advance Directives Directive [...] 16 yo)) Fluzone preservative free (>3 yrs.) [[id number]] Influenza, seasonal, injectable, preservative free hepatitis A immunization #1 Havrix-Pedi hepa titis A vaccine, unspecified formulation MPSV4 (meningococcal polysaccharide vaccination) Menactra meningococcal polysaccharide vaccine (MPSV4) Adacel (Tetanus, reduced Diphtheria, and acellular Per tussis Immunization) Adacel [ZNV141] tetanus toxoid, reduced diph theria toxoid, and [...] 11 .0-15.0 platelet count 210 THOUSAND/UL 10*3/mm3 588-051 2924/11/02 mean platelet volume 10.3 fL 7.5-11.5 Lab [...] N Encounters Code Encounter Date Provider Facility CPT-95104 Level 3 Est. Patient 15:21:38 OCEAN FORWARDER Rayna Pepper [facility] CPT-89074 Level 3 Est. Patient 15:35:51 OCEAN FORWARDER Ned Navarrete MD [facility] CPT-63158 Level 2 Est. Patient 12:43:40 CDT Ned Navarrete MD [facility] CPT-31281 Level 3 Est. Patient 14:38:48 CDT Toni duque DO [facility] CPT-68923 Level 3 Est. Patient 09:02:58 OCEAN FORWARDER George paulson MD [facility] CPT-72625 Level 3 Est. Patient 17:42:32 CDT Ned Navarrete MD [facility] CPT-62269 Level 3 Est. Patient 11:04:31 OCEAN FORWARDER Mariana Torrez [facility] CPT-32002 Level 4 Est. Patient 12:27:05 OCEAN FORWARDER Ned Navarrete MD [facility] CPT-23938 Level 3 Est. Patient 11:31:58 OCEAN FORWARDER Ned Navarrete MD [facility] CPT-55590 Level 3 Est. Patient 16:49:32 CDT Ned Navarrete MD [facility] CPT-90250 Level 4 Est. Patient 14:11:59 OCEAN FORWARDER Saskia green MD PhD [facility] CPT-16753 Level 3 Est. Patient 17:34:25 CDT Ned Navarrete MD [facility] CPT-65176 Level 3 Est. Patient 17:34:19 CDT Ned Navarrete MD [facility] CPT-49231 Level 3 Est. Patient 13:46:05 CDT Ned Navarrete MD [facility] CPT-70290 Level 3 Est. Patient 16:55:47 OCEAN FORWARDER Ned Navarrete MD [facility] CPT-74965 Level 2 Est. Patient 17:33:08 OCEAN FORWARDER Ned Navarrete MD [facility] CPT-36224 Level 3 Est. Patient 16:25:26 OCEAN FORWARDER Ned Navarrete MD [facility] Procedures Code Procedure Name Date Entry Date Standard Desc ription CPT-35415 Visit 14:52:59 CDT CPT-07036 Visit 15:17:20 CDT CPT-26080 Visit 15:57:29 CDT CPT-86904 First Vx - Ix admin via ID I M or jet injects without counseling by physician 15:53:15 CDT CPT-42027 Boostrix Intramuscular Suspension 5-2.5-18.5 201 01/28/11 15:53:14 CDT CPT-81857 Tdap 7yrs or > 14:41:06 CDT CPT-59548 Visit 17:47:08 CDT CPT-03201 OBGTT 1 - LAB USE ONLY 10:15:57 CDT CPT-46766 Venipuncture Draw Fee 10:15:57 CDT CPT-70544 Visit 15:07:16 OCEAN FORWARDER CPT-07429 Visit 16:49:41 OCEAN FORWARDER CPT-93264 Sono OB limited - XRAY USE ONLY 16:38:01 CS T CPT-10663 Sono OB comp > 14 weeks - XRAY USE ONLY 17:00:59 OCEAN FORWARDER CPT-43371 UA w micro - LAB USE ONLY 16:59:38 CDT 2015 CPT-11744 TSH - LAB USE ONLY 16:59:38 CDT CPT-08279 Venipuncture Draw Fee 16:59:38 CDT CPT-94132 Spec Collection and Handling Fee 14:01:24 C DT CPT-73443 Visit 14:01:24 CDT CPT-033 [facility] Med Screen 14:03:18 CDT CPT-033 [facility] Med Screen 11:04:57 CDT CPT-033 KB Med Screen 10:29:44 CDT CPT-04923 Administration 2+ single or combination vaccines inc oral 14:02:47 OCEAN FORWARDER CPT-42298 Administration single or combination vac cine inc oral 14:02:47 OCEAN FORWARDER CPT-55639 Hepatitis A ped/adol 2 dose schedule 14:02:47 OCEAN FORWARDER CPT-61093 Gardasil 14:02:47 OCEAN FORWARDER CPT-75551 Administration single or combination vac cine inc oral 11:40:38 OCEAN FORWARDER CPT-04268 Gardasil 11:40:38 OCEAN FORWARDER CPT-57422 Administration single or combination vac cine inc oral 09:45:00 CDT CPT-62850 Influenza Preservative Free split virus >age 3 09:45:00 CDT CPT-85258 Venipuncture Draw Fee 07:59:02 CDT
--- OUTSIDE RECORDS SUMMARY | 2019-10-10 20:40 | XMS REPORT | Clinical Summary ---
Author Author Admin, Son Rodriguez [facility] Address Unknown Phone Unavailable Allergies, [...] LATUDA 20 MG ORAL TABS LURASIDONE HCL 7675411 0230 Active Breanne Madl SWITCHGEAR REPAIRER Active CEPHALEXIN 500 MG ORAL CAPS CEPHALEXIN 382302 26459 Active Breanne Madl SWITCHGEAR REPAIRER Active LORATADINE 10 MG TABS 1 tablet by mouth daily L ORATADINE 01649696270 No Longer Active Breanne Madl SWITCHGEAR REPAIRER Active HYDROXYZINE HCL 25 MG TABS Take 1-2 tablets daily 2015 HYDROXYZINE HCL 63838101600 No Longer Active Breanne Madl SWITCHGEAR REPAIRER Active ORTHO TRI-CYCLEN (28) 0.18/0.215/0.25 MG-35 MCG TABS 1 daily NORGESTIM-ETH ESTRAD TRIPHASIC 81358605568 No Longer Active Breanne Madl SWITCHGEAR REPAIRER Active CLARITIN 10 MG TAB 1 tablet by mouth daily as needed for itchy r khari LORATADINE 35598075307 No Longer Active Ned Navarrete MD Active AUGMENTIN 875-125 MG TAB 1 po BID x 10 days with food AMOXICILLIN-POT CLAVULANATE 46347471165 No Longer Active Toni Washington DO Active ORTHO TRI-CYCLEN (28) 0.18/0.215/0.25 MG-35 MCG TABS 1 daily NORGESTIM-ETH ESTRAD TRIPHASIC 60459411543 No Longer Active Ned Navarrete MD Active ZOFRAN ODT 4 MG TBDP 1 po q6hr PRN Nausea ONDAN SETRON 53401495607 No Longer Active Ned Navarrete MD Active [facility] MEL[facility] 3 MG TABS Take 1 tablet at bedtime. 2013 MELATONIN 78501956116 No Longer Active Ned Navarrete MD Activ e BIOTIN 1000 MCG TABS Take 2 tablets daily BIOTI N 09041132561 No Longer Active Ned Navarrete MD Active OMEPRAZOLE 20 MG CPDR 1 tablet by mouth daily O MEPRAZOLE 00411964581 No Longer Active Mariana Josué FPGA ENGINEER Active LATUDA 80 MG TABS 1 tablet daily LURASIDONE HCL 92941604741 No Longer Active Mariana Moses APRN Active ZOVIRAX 400 MG TABS Take 1 tablet every 8 hours as needed 2 ACYCLOVIR 16311787412 No Longer Active Ned Navarrete MD Activ e ZITHROMAX Z-CHACE 250 MG TABS 2 today, then 1 daily for 4 days 201 10/06/11 AZITHROMYCIN 62732292739 No Longer Active Ned Navarrete MD Active TOPAMAX 100 MG TABS 1 tablet daily TOPIRAMATE 54 998093646 No Longer Active Ned Navarrete MD Active AMOXICILLIN 500 MG CAPS 2 po BID x 10 days AMOX ICILLIN 09387270812 No Longer Active Saskia Simon MD PhD Active NAPROSYN 375 MG TAB 1 twice a day as needed for chest pain 04/01 NAPROXEN 41743040159 No Longer Active Saskia Simon MD PhD Active HYDROCORTISONE 2.5 % EXT CREA Apply three times a day to aff ected area HYDROCORTISONE 15422944449 No Longer Active Ned Navarrete MD Active TOPIRAMATE 50 MG TABS 1 QD TOPIRAMATE 14526242809 No Longer Active Ned Navarrete MD Active FANAPT 6 MG TABS 1 BID ILOPERIDONE 41073844031 No L onger Active Ned Navarrete MD Active CIPROFLOXACIN HCL 0.3 % SOLN 1 drop in right eye every 2 hours for 2 days, then 1 drop four times a day CIPROFLOXACIN HCL 22861982415 No Longer Active Ned Navarrete MD Active LORATADINE 10 MG TABS 1 tablet by mouth daily L ORATADINE 76509614127 No Longer Active Ned Navarrete MD Active RANITIDINE HCL 150 MG CAPS 1 twice a day RANITI DINE HCL 57576779641 No Longer Active Ned Navarrete MD Active RANITIDINE HCL 150 MG CAPS 1 twice a day RANITIDINE HCL 150 MG CAPS 766325 RANITIDINE HCL Inactive LORATADINE 10 MG TABS 1 tablet by mouth daily LORATADINE 10 MG TABS 707447 LORATADINE Inactive CIPROFLOXACIN HCL 0.3 % SOLN 1 drop in right eye every 2 hours for 2 days, then 1 drop four times a day CIPROFLOXACIN HCL 0.3 % SOLN 070779 CIPROFLOXACIN HCL Inactive FANAPT 6 MG TABS 1 BID FANAPT 6 MG TABS ILO PERIDONE Inactive TOPIRAMATE 50 MG TABS 1 QD TOPIRAMATE 50 MG TABS 1 89726 TOPIRAMATE Inactive HYDROCORTISONE 2.5 % EXT CREA Apply three times a day to aff ected area HYDROCORTISONE 2.5 % EXT CREA 270303 HYDROCORTIS ONE Inactive NAPROSYN 375 MG TAB 1 twice a day as needed for chest pain 04/01 NAPROSYN 375 MG TAB NAPROXEN Inactive TOPAMAX 100 MG TABS 1 tablet daily TOPAMAX 100 MG TABS 857782 TOPIRAMATE Inactive ZOVIRAX 400 MG TABS Take 1 tablet every 8 hours as needed 2 ZOVIRAX 400 MG TABS 034314 ACYCLOVIR Inactive LATUDA 80 MG TABS 1 tablet daily LATUDA 80 MG TA BS LURASIDONE HCL Inactive OMEPRAZOLE 20 MG CPDR 1 tablet by mouth daily OMEPRAZOLE 20 MG CPDR 674003 OMEPRAZOLE Inactive BIOTIN 1000 MCG TABS Take 2 tablets daily BIOTIN 1000 MCG TABS 435833 BIOTIN Inactive [facility] 3 MG TABS Take 1 tablet at bedtime. 2013 [facility] M[facility] 3 MG TABS 381798 MELATONIN Inactive ZOFRAN ODT 4 MG TBDP 1 po q6hr PRN Nausea ZOFRAN ODT 4 MG TBDP 844254 ONDANSETRON Inactive ORTHO TRI-CYCLEN (28) 0.18/0.215/0.25 MG-35 MCG TABS 1 daily ORTHO TRI-CYCLEN (28) 0.18/0.215/0.25 MG-35 MCG TABS 383269 NORGESTIM-ETH ESTRAD TRIPHASIC Inactive CLARITIN 10 MG TAB 1 tablet by mouth daily as needed for itchy r khari CLARITIN 10 MG TAB 196138 LORATADINE Inactive ORTHO TRI-CYCLEN (28) 0.18/0.215/0.25 MG-35 MCG TABS 1 daily ORTHO TRI-CYCLEN (28) 0.18/0.215/0.25 MG-35 MCG TABS 821801 NORGESTIM-ETH ESTRAD TRIPHASIC Inactive HYDROXYZINE HCL 25 MG TABS Take 1-2 tablets daily 2015 HYDROXYZINE HCL 25 MG TABS 496451 HYDROXYZINE HCL Inactive LORATADINE 10 MG TABS 1 tablet by mouth daily LORATADINE 10 MG TABS 137006 LORATADINE Inactive AMOXICILLIN 500 MG CAPS 2 po BID x 10 days AMOXICILLIN 500 MG CAPS 747575 AMOXICILLIN Inactive ZITHROMAX Z-CHACE 250 MG TABS 2 today, then 1 daily for 4 days 201 10/06/11 ZITHROMAX Z-CHACE 250 MG TABS 0266498 AZITHROMYCIN Inac tive AUGMENTIN 875-125 MG TAB 1 po BID x 10 days with food AUGMENTIN 875-125 MG TAB 336730 AMOXICILLIN-POT CLAVULANATE Inactiv e Advance Directives Directive [...] 16 yo)) Fluzone preservative free (>3 yrs.) [[id number]] Influenza, seasonal, injectable, preservative free hepatitis A immunization #1 Havrix-Pedi hepa titis A vaccine, unspecified formulation MPSV4 (meningococcal polysaccharide vaccination) Menactra meningococcal polysaccharide vaccine (MPSV4) Adacel (Tetanus, reduced Diphtheria, and acellular Per tussis Immunization) Adacel [[id number]] tetanus toxoid, reduced diph theria toxoid, and [...] 11 .0-15.0 platelet count 210 THOUSAND/UL 10*3/mm3 442-782 9608/11/02 mean platelet volume 10.3 fL 7.5-11.5 Lab [...] ative Encounters Code Encounter Date Provider Facility CPT-30215 Level 2 Est. Patient 12:43:40 CDT Ned Navarrete MD [facility] CPT-61577 Level 3 Est. Patient 14:38:48 CDT Toni duque DO [facility] CPT-21164 Level 3 Est. Patient 09:02:58 YARD SPECIALIST George paulson MD [facility] CPT-25049 Level 3 Est. Patient 17:42:32 CDT Ned Navarrete MD [facility] CPT-85227 Level 3 Est. Patient 11:04:31 YARD SPECIALIST Mariana Torrez APRN [facility] CPT-83520 Level 4 Est. Patient 12:27:05 YARD SPECIALIST Ned Navarrete MD [facility] CPT-39662 Level 3 Est. Patient 11:31:58 YARD SPECIALIST Ned Navarrete MD [facility] CPT-45723 Level 3 Est. Patient 16:49:32 CDT Ned Navarrete MD [facility] CPT-76663 Level 4 Est. Patient 14:11:59 YARD SPECIALIST Saskia green MD PhD [facility] CPT-41789 Level 3 Est. Patient 17:34:25 CDT Ned Navarrete MD [facility] CPT-85668 Level 3 Est. Patient 17:34:19 CDT Ned Navarrete MD [facility] CPT-89567 Level 3 Est. Patient 13:46:05 CDT Ned Navarrete MD [facility] CPT-45801 Level 3 Est. Patient 16:55:47 YARD SPECIALIST Ned Navarrete MD [facility] CPT-35691 Level 2 Est. Patient 17:33:08 YARD SPECIALIST Ned Navarrete MD [facility] CPT-40788 Level 3 Est. Patient 16:25:26 YARD SPECIALIST Ned Navarrete MD [facility] Procedures Code Procedure Name Date Entry Date Standard Desc ription CPT-07640 Visit 16:49:41 YARD SPECIALIST CPT-84523 Sono OB limited - XRAY USE ONLY 16:38:01 CS T CPT-42280 Sono OB comp > 14 weeks - XRAY USE ONLY 17:00:59 YARD SPECIALIST CPT-78896 UA w micro - LAB USE ONLY 16:59:38 CDT 2015 CPT-97412 TSH - LAB USE ONLY 16:59:38 CDT CPT-82815 Venipuncture Draw Fee 16:59:38 CDT CPT-64480 Spec Collection and Handling Fee 14:01:24 C DT CPT-17621 Visit 14:01:24 CDT CPT-033 [facility] Med Screen 14:03:18 CDT CPT-033 [facility] Med Screen 11:04:57 CDT CPT-033 [facility] Med Screen 10:29:44 CDT CPT-66917 Administration 2+ single or combination vaccines inc oral 14:02:47 YARD SPECIALIST CPT-85001 Administration single or combination vac cine inc oral 14:02:47 YARD SPECIALIST CPT-76006 Hepatitis A ped/adol 2 dose schedule 14:02:47 YARD SPECIALIST CPT-49451 Gardasil 14:02:47 YARD SPECIALIST CPT-54718 Administration single or combination vac cine inc oral 11:40:38 YARD SPECIALIST CPT-39165 Gardasil 11:40:38 YARD SPECIALIST CPT-50615 Administration single or combination vac cine inc oral 09:45:00 CDT CPT-70762 Influenza Preservative Free split virus >age 3 09:45:00 CDT CPT-53739 Venipuncture Draw Fee 07:59:02 CDT
--- OUTSIDE RECORDS SUMMARY | 2019-10-10 20:40 | XMS REPORT | Clinical Summary ---
Author Author Admin, Son Chan Organization [employer] Address Unknown Phone Unavailable Allergies, Adverse Reactions, [...] 1 herman ly for 3 days PREDNISONE 78697447504 No Longer Active Ned pérez MD Active CEPHALEXIN 500 MG ORAL CAPS CEPHALEXIN 29479744391 No Longer Active Ned Navarrete MD Active LATUDA 20 MG ORAL TABS LURASIDONE HCL 6000580 0230 Active Breanne Madl CLINICAL DIRECTOR Active LORATADINE 10 MG TABS 1 tablet by mouth daily L ORATADINE 51852078144 No Longer Active Breanne Madl CLINICAL DIRECTOR Active HYDROXYZINE HCL 25 MG TABS Take 1-2 tablets daily 2015 HYDROXYZINE HCL 26351319918 No Longer Active Breanne Madl CLINICAL DIRECTOR Active ORTHO TRI-CYCLEN (28) 0.18/0.215/0.25 MG-35 MCG TABS 1 daily NORGESTIM-ETH ESTRAD TRIPHASIC 43728659310 No Longer Active Breanne Madl CLINICAL DIRECTOR Active CLARITIN 10 MG TAB 1 tablet by mouth daily as needed for itchy r khari LORATADINE 05801462297 No Longer Active Ned Navarrete MD Active AUGMENTIN 875-125 MG TAB 1 po BID x 10 days with food AMOXICILLIN-POT CLAVULANATE 69633657076 No Longer Active Toni Washington DO Active ORTHO TRI-CYCLEN (28) 0.18/0.215/0.25 MG-35 MCG TABS 1 daily NORGESTIM-ETH ESTRAD TRIPHASIC 36655900164 No Longer Active Ned Navarrete MD Active ZOFRAN ODT 4 MG TBDP 1 po q6hr PRN Nausea ONDAN SETRON 74129983168 No Longer Active Ned Navarrete MD Active [facility] MEL[facility] 3 MG TABS Take 1 tablet at bedtime. 2013 MELATONIN 19982955412 No Longer Active Ned Navarrete MD Activ e BIOTIN 1000 MCG TABS Take 2 tablets daily BIOTI N 27609248583 No Longer Active Ned Navarrete MD Active OMEPRAZOLE 20 MG CPDR 1 tablet by mouth daily O MEPRAZOLE 09241691474 No Longer Active Mariana Moses APRN Active LATUDA 80 MG TABS 1 tablet daily LURASIDONE HCL 41677073408 No Longer Active Mariana Moses APRN Active ZOVIRAX 400 MG TABS Take 1 tablet every 8 hours as needed 2 ACYCLOVIR 35314632779 No Longer Active Ned Navarrete MD Activ e ZITHROMAX Z-CHACE 250 MG TABS 2 today, then 1 daily for 4 days 201 10/06/11 AZITHROMYCIN 10516101852 No Longer Active Ned Navarrete MD Active TOPAMAX 100 MG TABS 1 tablet daily TOPIRAMATE 54 061817784 No Longer Active Ned Navarrete MD Active AMOXICILLIN 500 MG CAPS 2 po BID x 10 days AMOX ICILLIN 45413899781 No Longer Active Saskia Simon MD PhD Active NAPROSYN 375 MG TAB 1 twice a day as needed for chest pain 04/01 NAPROXEN 84490927401 No Longer Active Saskia Simon MD PhD Active HYDROCORTISONE 2.5 % EXT CREA Apply three times a day to aff ected area HYDROCORTISONE 87381049432 No Longer Active Ned Navarrete MD Active TOPIRAMATE 50 MG TABS 1 QD TOPIRAMATE 85815530943 No Longer Active Ned Navarrete MD Active FANAPT 6 MG TABS 1 BID ILOPERIDONE 53017221715 No L onger Active Ned Navarrete MD Active CIPROFLOXACIN HCL 0.3 % SOLN 1 drop in right eye every 2 hours for 2 days, then 1 drop four times a day CIPROFLOXACIN HCL 70562877331 No Longer Active Ned Navarrete MD Active LORATADINE 10 MG TABS 1 tablet by mouth daily L ORATADINE 49798057015 No Longer Active Ned Navarrete MD Active RANITIDINE HCL 150 MG CAPS 1 twice a day RANITI DINE HCL 67044203265 No Longer Active Ned Navarrete MD Active RANITIDINE HCL 150 MG CAPS 1 twice a day RANITIDINE HCL 150 MG CAPS 505228 RANITIDINE HCL Inactive LORATADINE 10 MG TABS 1 tablet by mouth daily LORATADINE 10 MG TABS 694865 LORATADINE Inactive CIPROFLOXACIN HCL 0.3 % SOLN 1 drop in right eye every 2 hours for 2 days, then 1 drop four times a day CIPROFLOXACIN HCL 0.3 % SOLN 811205 CIPROFLOXACIN HCL Inactive FANAPT 6 MG TABS 1 BID FANAPT 6 MG TABS ILO PERIDONE Inactive TOPIRAMATE 50 MG TABS 1 QD TOPIRAMATE 50 MG TABS 1 44875 TOPIRAMATE Inactive HYDROCORTISONE 2.5 % EXT CREA Apply three times a day to aff ected area HYDROCORTISONE 2.5 % EXT CREA 576934 HYDROCORTIS ONE Inactive NAPROSYN 375 MG TAB 1 twice a day as needed for chest pain 04/01 NAPROSYN 375 MG TAB NAPROXEN Inactive TOPAMAX 100 MG TABS 1 tablet daily TOPAMAX 100 MG TABS 420178 TOPIRAMATE Inactive ZOVIRAX 400 MG TABS Take 1 tablet every 8 hours as needed 2 ZOVIRAX 400 MG TABS 336513 ACYCLOVIR Inactive LATUDA 80 MG TABS 1 tablet daily LATUDA 80 MG TA BS LURASIDONE HCL Inactive OMEPRAZOLE 20 MG CPDR 1 tablet by mouth daily OMEPRAZOLE 20 MG CPDR 737616 OMEPRAZOLE Inactive BIOTIN 1000 MCG TABS Take 2 tablets daily BIOTIN 1000 MCG TABS 027404 BIOTIN Inactive [facility] 3 MG TABS Take 1 tablet at bedtime. 2013 [facility] 3 MG TABS 639692 MELATONIN Inactive ZOFRAN ODT 4 MG TBDP 1 po q6hr PRN Nausea ZOFRAN ODT 4 MG TBDP 064163 ONDANSETRON Inactive ORTHO TRI-CYCLEN (28) 0.18/0.215/0.25 MG-35 MCG TABS 1 daily ORTHO TRI-CYCLEN (28) 0.18/0.215/0.25 MG-35 MCG TABS 203224 NORGESTIM-ETH ESTRAD TRIPHASIC Inactive CLARITIN 10 MG TAB 1 tablet by mouth daily as needed for itchy r khari CLARITIN 10 MG TAB 964034 LORATADINE Inactive ORTHO TRI-CYCLEN (28) 0.18/0.215/0.25 MG-35 MCG TABS 1 daily ORTHO TRI-CYCLEN (28) 0.18/0.215/0.25 MG-35 MCG TABS 234229 NORGESTIM-ETH ESTRAD TRIPHASIC Inactive HYDROXYZINE HCL 25 MG TABS Take 1-2 tablets daily 2015 HYDROXYZINE HCL 25 MG TABS 753829 HYDROXYZINE HCL Inactive LORATADINE 10 MG TABS 1 tablet by mouth daily LORATADINE 10 MG TABS 464359 LORATADINE Inactive CEPHALEXIN 500 MG ORAL CAPS CEPHALEX IN 500 MG ORAL CAPS 421684 CEPHALEXIN Inactive PREDNISONE 20 MG TABS Take 2 daily for 3 days and then 1 herman ly for 3 days PREDNISONE 20 MG TABS 312772 PREDNISONE Inacti ve AMOXICILLIN 500 MG CAPS 2 po BID x 10 days AMOXICILLIN 500 MG CAPS 631977 AMOXICILLIN Inactive ZITHROMAX Z-CHACE 250 MG TABS 2 today, then 1 daily for 4 days 201 10/06/11 ZITHROMAX Z-CHACE 250 MG TABS 0829086 AZITHROMYCIN Inac tive AUGMENTIN 875-125 MG TAB 1 po BID x 10 days with food AUGMENTIN 875-125 MG TAB 245867 AMOXICILLIN-POT CLAVULANATE Inactiv e Advance Directives Directive [...] 16 yo)) Fluzone preservative free (>3 yrs.) [[id number]] Influenza, seasonal, injectable, preservative free MPSV4 (meningococcal polysaccharide vaccination) Menactra meningococcal polysaccharide vaccine (MPSV4) hepatitis A immunization #1 Havrix-Pedi hepa titis A vaccine, unspecified formulation Adacel (Tetanus, reduced Diphtheria, and acellular Per tussis Immunization) Adacel [[id number]] tetanus toxoid, reduced diph theria toxoid, and [...] 11 .0-15.0 platelet count 210 THOUSAND/UL 10*3/mm3 735-459 2798/11/02 mean platelet volume 10.3 fL 7.5-11.5 Lab [...] N Encounters Code Encounter Date Provider Facility CPT-25587 Level 3 Est. Patient 15:21:38 FLIGHT DATA TECHNICIAN Rayna Pepper [facility] CPT-50273 Level 3 Est. Patient 15:35:51 FLIGHT DATA TECHNICIAN Ned Navarrete MD [facility] CPT-12288 Level 2 Est. Patient 12:43:40 CDT Ned Navarrete MD [facility] CPT-53204 Level 3 Est. Patient 14:38:48 CDT Toni duque DO [facility] CPT-28433 Level 3 Est. Patient 09:02:58 FLIGHT DATA TECHNICIAN George paulson MD [facility] CPT-54607 Level 3 Est. Patient 17:42:32 CDT Ned Navarrete MD [facility] CPT-07243 Level 3 Est. Patient 11:04:31 FLIGHT DATA TECHNICIAN Mariana Torrez [facility] CPT-78028 Level 4 Est. Patient 12:27:05 FLIGHT DATA TECHNICIAN Ned Navarrete MD [facility] CPT-22707 Level 3 Est. Patient 11:31:58 FLIGHT DATA TECHNICIAN Ned Navarrete MD [facility] CPT-10956 Level 3 Est. Patient 16:49:32 CDT Ned Navarrete MD [facility] CPT-75757 Level 4 Est. Patient 14:11:59 FLIGHT DATA TECHNICIAN Saskia green MD PhD [facility] CPT-92619 Level 3 Est. Patient 17:34:25 CDT Ned Navarrete MD [facility] CPT-57866 Level 3 Est. Patient 17:34:19 CDT Ned Navarrete MD [facility] CPT-71139 Level 3 Est. Patient 13:46:05 CDT Ned Navarrete MD [facility] CPT-13856 Level 3 Est. Patient 16:55:47 FLIGHT DATA TECHNICIAN Ned Navarrete MD [facility] CPT-65706 Level 2 Est. Patient 17:33:08 FLIGHT DATA TECHNICIAN Ned Navarrete MD [facility] CPT-35892 Level 3 Est. Patient 16:25:26 FLIGHT DATA TECHNICIAN Ned Navarrete MD [facility] Procedures Code Procedure Name Date Entry Date Standard Desc ription CPT-28669 Visit 17:47:08 CDT CPT-14695 OBGTT 1 - LAB USE ONLY 10:15:57 CDT CPT-45535 Venipuncture Draw Fee 10:15:57 CDT CPT-39760 Visit 15:07:16 FLIGHT DATA TECHNICIAN CPT-37738 Visit 16:49:41 FLIGHT DATA TECHNICIAN CPT-40555 Sono OB limited - XRAY USE ONLY 16:38:01 CS T CPT-71706 Sono OB comp > 14 weeks - XRAY USE ONLY 17:00:59 FLIGHT DATA TECHNICIAN CPT-68017 UA w micro - LAB USE ONLY 16:59:38 CDT 2015 CPT-21128 TSH - LAB USE ONLY 16:59:38 CDT CPT-32091 Venipuncture Draw Fee 16:59:38 CDT CPT-83358 Spec Collection and Handling Fee 14:01:24 C DT CPT-26633 Visit 14:01:24 CDT CPT-033 [facility] Med Screen 14:03:18 CDT CPT-033 [facility] Med Screen 11:04:57 CDT CPT-033 [facility] Med Screen 10:29:44 CDT CPT-85775 Administration 2+ single or combination vaccines inc oral 14:02:47 FLIGHT DATA TECHNICIAN CPT-22521 Administration single or combination vac cine inc oral 14:02:47 FLIGHT DATA TECHNICIAN CPT-24421 Hepatitis A ped/adol 2 dose schedule 14:02:47 FLIGHT DATA TECHNICIAN CPT-40323 Gardasil 14:02:47 FLIGHT DATA TECHNICIAN CPT-69611 Administration single or combination vac cine inc oral 11:40:38 FLIGHT DATA TECHNICIAN CPT-48492 Gardasil 11:40:38 FLIGHT DATA TECHNICIAN CPT-27103 Administration single or combination vac cine inc oral 09:45:00 CDT CPT-15673 Influenza Preservative Free split virus >age 3 09:45:00 CDT CPT-16598 Venipuncture Draw Fee 07:59:02 CDT
--- OUTSIDE RECORDS SUMMARY | 2019-10-10 20:41 | XMS REPORT | Clinical Summary ---
Author Author Admin, Son Chan Organization [employer] Address Unknown Phone Unavailable Allergies, Adverse Reactions, [...] LATUDA 20 MG ORAL TABS LURASIDONE HCL 6715527 0230 Active Breanne Madl [employer] Active CEPHALEXIN 500 MG ORAL CAPS CEPHALEXIN 786681 37661 Active Breanne Madl [employer] Active LORATADINE 10 MG TABS 1 tablet by mouth daily L ORATADINE 34682104626 No Longer Active Breanne Madl [employer] Active HYDROXYZINE HCL 25 MG TABS Take 1-2 tablets daily 2015 HYDROXYZINE HCL 47477694522 No Longer Active Breanne Madl [employer] Active ORTHO TRI-CYCLEN (28) 0.18/0.215/0.25 MG-35 MCG TABS 1 daily NORGESTIM-ETH ESTRAD TRIPHASIC 81076285840 No Longer Active Breanne Madl [employer] Active CLARITIN 10 MG TAB 1 tablet by mouth daily as needed for itchy r khari LORATADINE 76277279742 No Longer Active Ned Navarrete MD Active AUGMENTIN 875-125 MG TAB 1 po BID x 10 days with food AMOXICILLIN-POT CLAVULANATE 67716920620 No Longer Active Toni Washington DO Active ORTHO TRI-CYCLEN (28) 0.18/0.215/0.25 MG-35 MCG TABS 1 daily NORGESTIM-ETH ESTRAD TRIPHASIC 92482116972 No Longer Active Ned Navarrete MD Active ZOFRAN ODT 4 MG TBDP 1 po q6hr PRN Nausea ONDAN SETRON 46593911251 No Longer Active Ned Navarrete MD Active [facility]EL[facility] 3 MG TABS Take 1 tablet at bedtime. 2013 MELATONIN 11196883288 No Longer Active Ned Navarrete MD Activ e BIOTIN 1000 MCG TABS Take 2 tablets daily BIOTI N 92470127166 No Longer Active Ned Navarrete MD Active OMEPRAZOLE 20 MG CPDR 1 tablet by mouth daily O MEPRAZOLE 12181375074 No Longer Active Mariana Moses APRN Active LATUDA 80 MG TABS 1 tablet daily LURASIDONE HCL 27920418189 No Longer Active Mariana Moses APRN Active ZOVIRAX 400 MG TABS Take 1 tablet every 8 hours as needed 2 ACYCLOVIR 64725815031 No Longer Active Ned Navarrete MD Activ e ZITHROMAX Z-CHACE 250 MG TABS 2 today, then 1 daily for 4 days 201 10/06/11 AZITHROMYCIN 45029006825 No Longer Active Ned Navarrete MD Active TOPAMAX 100 MG TABS 1 tablet daily TOPIRAMATE 54 256083233 No Longer Active Ned Navarrete MD Active AMOXICILLIN 500 MG CAPS 2 po BID x 10 days AMOX ICILLIN 91582658068 No Longer Active Saskia Simon MD PhD Active NAPROSYN 375 MG TAB 1 twice a day as needed for chest pain 04/01 NAPROXEN 24797546255 No Longer Active Saskia Simon MD PhD Active HYDROCORTISONE 2.5 % EXT CREA Apply three times a day to aff ected area HYDROCORTISONE 41035723356 No Longer Active Ned Navarrete MD Active TOPIRAMATE 50 MG TABS 1 QD TOPIRAMATE 18227490366 No Longer Active Ned Navarrete MD Active FANAPT 6 MG TABS 1 BID ILOPERIDONE 63804367704 No L onger Active Ned Navarrete MD Active CIPROFLOXACIN HCL 0.3 % SOLN 1 drop in right eye every 2 hours for 2 days, then 1 drop four times a day CIPROFLOXACIN HCL 83879635813 No Longer Active Ned Navarrete MD Active LORATADINE 10 MG TABS 1 tablet by mouth daily L ORATADINE 05135361320 No Longer Active Ned Navarrete MD Active RANITIDINE HCL 150 MG CAPS 1 twice a day RANITI DINE HCL 60342709101 No Longer Active Ned Navarrete MD Active RANITIDINE HCL 150 MG CAPS 1 twice a day RANITIDINE HCL 150 MG CAPS 405766 RANITIDINE HCL Inactive LORATADINE 10 MG TABS 1 tablet by mouth daily LORATADINE 10 MG TABS 392580 LORATADINE Inactive CIPROFLOXACIN HCL 0.3 % SOLN 1 drop in right eye every 2 hours for 2 days, then 1 drop four times a day CIPROFLOXACIN HCL 0.3 % SOLN 761516 CIPROFLOXACIN HCL Inactive FANAPT 6 MG TABS 1 BID FANAPT 6 MG TABS ILO PERIDONE Inactive TOPIRAMATE 50 MG TABS 1 QD TOPIRAMATE 50 MG TABS 1 88952 TOPIRAMATE Inactive HYDROCORTISONE 2.5 % EXT CREA Apply three times a day to aff ected area HYDROCORTISONE 2.5 % EXT CREA 017449 HYDROCORTIS ONE Inactive NAPROSYN 375 MG TAB 1 twice a day as needed for chest pain 04/01 NAPROSYN 375 MG TAB NAPROXEN Inactive TOPAMAX 100 MG TABS 1 tablet daily TOPAMAX 100 MG TABS 071217 TOPIRAMATE Inactive ZOVIRAX 400 MG TABS Take 1 tablet every 8 hours as needed ZOVIRAX 400 MG TABS 048545 ACYCLOVIR Inactive LATUDA 80 MG TABS 1 tablet daily LATUDA 80 MG TA BS LURASIDONE HCL Inactive OMEPRAZOLE 20 MG CPDR 1 tablet by mouth daily OMEPRAZOLE 20 MG CPDR 109861 OMEPRAZOLE Inactive BIOTIN 1000 MCG TABS Take 2 tablets daily BIOTIN 1000 MCG TABS 654774 BIOTIN Inactive [facility] M[facility] 3 MG TABS Take 1 tablet at bedtime. 2013 [facility] M[facility] 3 MG TABS 516286 MELATONIN Inactive ZOFRAN ODT 4 MG TBDP 1 po q6hr PRN Nausea ZOFRAN ODT 4 MG TBDP 620373 ONDANSETRON Inactive ORTHO TRI-CYCLEN (28) 0.18/0.215/0.25 MG-35 MCG TABS 1 daily ORTHO TRI-CYCLEN (28) 0.18/0.215/0.25 MG-35 MCG TABS 286558 NORGESTIM-ETH ESTRAD TRIPHASIC Inactive CLARITIN 10 MG TAB 1 tablet by mouth daily as needed for itchy r khari CLARITIN 10 MG TAB 588420 LORATADINE Inactive ORTHO TRI-CYCLEN (28) 0.18/0.215/0.25 MG-35 MCG TABS 1 daily ORTHO TRI-CYCLEN (28) 0.18/0.215/0.25 MG-35 MCG TABS 932200 NORGESTIM-ETH ESTRAD TRIPHASIC Inactive HYDROXYZINE HCL 25 MG TABS Take 1-2 tablets daily 2015 HYDROXYZINE HCL 25 MG TABS 539632 HYDROXYZINE HCL Inactive LORATADINE 10 MG TABS 1 tablet by mouth daily LORATADINE 10 MG TABS 455634 LORATADINE Inactive AMOXICILLIN 500 MG CAPS 2 po BID x 10 days AMOXICILLIN 500 MG CAPS 907970 AMOXICILLIN Inactive ZITHROMAX Z-CHACE 250 MG TABS 2 today, then 1 daily for 4 days 201 10/06/11 ZITHROMAX Z-CHACE 250 MG TABS 3613995 AZITHROMYCIN Inac tive AUGMENTIN 875-125 MG TAB 1 po BID x 10 days with food AUGMENTIN 875-125 MG TAB 051406 AMOXICILLIN-POT CLAVULANATE Inactiv e Advance Directives Directive [...] 18 yo)) Fluzone preservative free (>3 yrs.) [[id number]] Influenza, seasonal, injectable, preservative free MPSV4 (meningococcal polysaccharide vaccination) Menactra meningococcal polysaccharide vaccine (MPSV4) hepatitis A immunization #1 Havrix-Pedi hepa titis A vaccine, unspecified formulation Adacel (Tetanus, reduced Diphtheria, and acellular Per tussis Immunization) Adacel [[id number]] tetanus toxoid, reduced diph theria toxoid, and [...] Measured Encounters Code Encounter Date Provider Facility CPT-60034 Level 2 Est. Patient 12:43:40 CDT Ned Navarrete MD [facility] CPT-62214 Level 3 Est. Patient 14:38:48 CDT Toni duque DO [facility] CPT-51922 Level 3 Est. Patient 09:02:58 SECOND HELPER George paulson MD [facility] CPT-93366 Level 3 Est. Patient 17:42:32 CDT Ned Navarrete MD [facility] CPT-74758 Level 3 Est. Patient 11:04:31 SECOND HELPER Mariana Torrez APRN [facility] CPT-78386 Level 4 Est. Patient 12:27:05 SECOND HELPER Ned Navarrete MD [facility] CPT-49766 Level 3 Est. Patient 11:31:58 SECOND HELPER Ned Navarrete MD [facility] CPT-27287 Level 3 Est. Patient 16:49:32 CDT Ned Navarrete MD [facility] CPT-43061 Level 4 Est. Patient 14:11:59 SECOND HELPER Saskia green MD PhD [facility] CPT-71406 Level 3 Est. Patient 17:34:25 CDT Ned Navarrete MD [facility] CPT-99740 Level 3 Est. Patient 17:34:19 CDT Ned Navarrete MD [facility] CPT-19414 Level 3 Est. Patient 13:46:05 CDT Ned Navarrete MD [facility] CPT-29361 Level 3 Est. Patient 16:55:47 SECOND HELPER Ned Navarrete MD [facility] CPT-65772 Level 2 Est. Patient 17:33:08 SECOND HELPER Ned Navarrete MD [facility] CPT-60437 Level 3 Est. Patient 16:25:26 SECOND HELPER Ned Navarrete MD [facility] Procedures Code Procedure Name Date Entry Date Standard Desc ription CPT-55348 Spec Collection and Handling Fee 14:01:24 C DT CPT-77494 Visit 14:01:24 CDT CPT-033 KB Med Screen 14:03:18 CDT CPT-033 KB Med Screen 11:04:57 CDT CPT-033 KB Med Screen 10:29:44 CDT CPT-85988 Administration 2+ single or combination vaccines inc oral 14:02:47 SECOND HELPER CPT-60084 Administration single or combination vac cine inc oral 14:02:47 SECOND HELPER CPT-78363 Hepatitis A ped/adol 2 dose schedule 14:02:47 SECOND HELPER CPT-10490 Gardasil 14:02:47 SECOND HELPER CPT-28365 Administration single or combination vac cine inc oral 11:40:38 SECOND HELPER CPT-56986 Gardasil 11:40:38 SECOND HELPER CPT-37535 Administration single or combination vac cine inc oral 09:45:00 CDT CPT-77214 Influenza Preservative Free split virus >age 3 09:45:00 CDT CPT-81958 Venipuncture Draw Fee 07:59:02 CDT
--- OUTSIDE RECORDS SUMMARY | 2019-10-10 20:41 | XMS REPORT | Clinical Summary ---
Author Author Beka, Son Rodriguez [facility] Address Unknown Phone Unavailable Allergies, Adverse Reactions, [...] TABS 1 daily 2 NORGESTIM-ETH ESTRAD TRIPHASIC 18372132725 Active Tiffany Brennan Active ORTHO TRI-CYCLEN (28) 0.18/0.215/0.25 MG-35 MCG TABS 1 daily NORGESTIM-ETH ESTRAD TRIPHASIC 01048991252 No Longer Active Ned Navarrete MD Active ZOFRAN ODT 4 MG TBDP 1 po q6hr PRN Nausea ONDAN SETRON 96654363609 No Longer Active Ned Navarrete MD Active [facility] 3 MG TABS Take 1 tablet at bedtime. 2013 MELATONIN 91930353754 No Longer Active Ned Navarrete MD Activ e BIOTIN 1000 MCG TABS Take 2 tablets daily BIOTI N 76909741760 No Longer Active Ned Navarrete MD Active OMEPRAZOLE 20 MG CPDR 1 tablet by mouth daily O MEPRAZOLE 18344612941 No Longer Active Mariana Moses APRN Active LATUDA 80 MG TABS 1 tablet daily LURASIDONE HCL 45168692932 No Longer Active Mariana Moses APRN Active ZOVIRAX 400 MG TABS Take 1 tablet every 8 hours as needed 2 ACYCLOVIR 62987631098 No Longer Active Ned Navarrete MD Activ e ZITHROMAX Z-CHACE 250 MG TABS 2 today, then 1 daily for 4 days 201 10/06/11 AZITHROMYCIN 34484613707 No Longer Active Ned Navarrete MD Active HYDROXYZINE HCL 25 MG TABS Take 1-2 tablets daily HYDROXYZINE HCL 23300928010 Active Ned aNvarrete MD Active TOPAMAX 100 MG TABS 1 tablet daily TOPIRAMATE 54 001445154 No Longer Active Ned Navarrete MD Active AMOXICILLIN 500 MG CAPS 2 po BID x 10 days AMOX ICILLIN 51327142395 No Longer Active Saskia Simon MD PhD Active NAPROSYN 375 MG TAB 1 twice a day as needed for chest pain 04/01 NAPROXEN 84902151046 No Longer Active Saskia Simon MD PhD Active HYDROCORTISONE 2.5 % EXT CREA Apply three times a day to aff ected area HYDROCORTISONE 71519054050 No Longer Active Ned Navarrete MD Active LORATADINE 10 MG TABS 1 tablet by mouth daily L ORATADINE 50476694686 Active Ned Navarrete MD Active TOPIRAMATE 50 MG TABS 1 QD TOPIRAMATE 89170260235 No Longer Active Ned Navarrete MD Active FANAPT 6 MG TABS 1 BID ILOPERIDONE 70702972370 No L onger Active Ned Navarrete MD Active CIPROFLOXACIN HCL 0.3 % SOLN 1 drop in right eye every 2 hours for 2 days, then 1 drop four times a day CIPROFLOXACIN HCL 57763948260 No Longer Active Ned Navarrete MD Active LORATADINE 10 MG TABS 1 tablet by mouth daily L ORATADINE 24375993300 No Longer Active Ned Navarrete MD Active RANITIDINE HCL 150 MG CAPS 1 twice a day RANITI DINE HCL 37602880291 No Longer Active Ned Navarrete MD Active RANITIDINE HCL 150 MG CAPS 1 twice a day RANITIDINE HCL 150 MG CAPS 943031 RANITIDINE HCL Inactive LORATADINE 10 MG TABS 1 tablet by mouth daily LORATADINE 10 MG TABS 252210 LORATADINE Inactive CIPROFLOXACIN HCL 0.3 % SOLN 1 drop in right eye every 2 hours for 2 days, then 1 drop four times a day CIPROFLOXACIN HCL 0.3 % SOLN 256716 CIPROFLOXACIN HCL Inactive FANAPT 6 MG TABS 1 BID FANAPT 6 MG TABS ILO PERIDONE Inactive TOPIRAMATE 50 MG TABS 1 QD TOPIRAMATE 50 MG TABS 1 97996 TOPIRAMATE Inactive HYDROCORTISONE 2.5 % EXT CREA Apply three times a day to aff ected area HYDROCORTISONE 2.5 % EXT CREA 911614 HYDROCORTIS ONE Inactive NAPROSYN 375 MG TAB 1 twice a day as needed for chest pain 04/01 NAPROSYN 375 MG TAB 19790729 NAPROXEN Inactive TOPAMAX 100 MG TABS 1 tablet daily TOPAMAX 100 MG TABS 788442 TOPIRAMATE Inactive ZOVIRAX 400 MG TABS Take 1 tablet every 8 hours as needed 2 ZOVIRAX 400 MG TABS 763663 ACYCLOVIR Inactive LATUDA 80 MG TABS 1 tablet daily LATUDA 80 MG TA BS LURASIDONE HCL Inactive OMEPRAZOLE 20 MG CPDR 1 tablet by mouth daily OMEPRAZOLE 20 MG CPDR 710617 OMEPRAZOLE Inactive BIOTIN 1000 MCG TABS Take 2 tablets daily BIOTIN 1000 MCG TABS 101427 BIOTIN Inactive [facility] M[facility] 3 MG TABS Take 1 tablet at bedtime. 2013 [facility] 3 MG TABS 848456 MELATONIN Inactive ZOFRAN ODT 4 MG TBDP 1 po q6hr PRN Nausea ZOFRAN ODT 4 MG TBDP 405546 ONDANSETRON Inactive ORTHO TRI-CYCLEN (28) 0.18/0.215/0.25 MG-35 MCG TABS 1 daily ORTHO TRI-CYCLEN (28) 0.18/0.215/0.25 MG-35 MCG TABS 800130 NORGESTIM-ETH ESTRAD TRIPHASIC Inactive AMOXICILLIN 500 MG CAPS 2 po BID x 10 days AMOXICILLIN 500 MG CAPS 952929 AMOXICILLIN Inactive ZITHROMAX Z-CHACE 250 MG TABS 2 today, then 1 daily for 4 days 201 10/06/11 ZITHROMAX Z-CHACE 250 MG TABS 1775209 AZITHROMYCIN Inac tive Advance Directives Directive Description [...] 18 yo)) Fluzone preservative free (>3 yrs.) [[id number]] Influenza, seasonal, injectable, preservative free MPSV4 (meningococcal polysaccharide vaccination) Menactra meningococcal polysaccharide vaccine (MPSV4) hepatitis A immunization #1 Havrix-Pedi hepa titis A vaccine, unspecified formulation Adacel (Tetanus, reduced Diphtheria, and acellular Per tussis Immunization) Adacel [[id number]] tetanus toxoid, reduced diph theria toxoid, and [...] Name Value Unit Range Description Lab Report: [facility] [place] - Chemistry human chorionic gonadotropin , urine, qualitative (urine test) Negative Negative Encounters Code Encounter Date Provider Facility CPT-36757 Level 3 Est. Patient 17:42:32 CDT Ned Navarrete MD [facility] CPT-09056 Level 3 Est. Patient 11:04:31 [employer] Mariana Torrez APRN [facility] CPT-94927 Level 4 Est. Patient 12:27:05 [facility] Ned Navarrete MD [facility] CPT-08558 Level 3 Est. Patient 11:31:58 [employer] Ned Navarrete MD [facility] CPT-95378 Level 3 Est. Patient 16:49:32 CDT Ned Navarrete MD [facility] CPT-93296 Level 4 Est. Patient 14:11:59 [facility] Saskia green MD PhD [facility] CPT-84936 Level 3 Est. Patient 17:34:25 CDT Ned Navarrete MD [facility] CPT-53680 Level 3 Est. Patient 17:34:19 CDT Ned Navarrete MD [facility] CPT-69723 Level 3 Est. Patient 13:46:05 CDT Ned Navarrete MD [facility] CPT-95640 Level 3 Est. Patient 16:55:47 [employer] Ned Navarrete MD [facility] CPT-76293 Level 2 Est. Patient 17:33:08 [employer] Ned Navarrete MD [facility] CPT-01966 Level 3 Est. Patient 16:25:26 [employer] Ned Navarrete MD [facility] Procedures Code Procedure Name Date Entry Date Standard Desc ription CPT-033 [facility] Med Screen 10:29:44 CDT CPT-22314 Administration 2+ single or combination vaccines inc oral 14:02:47 [facility] CPT-61697 Administration single or combination vac cine inc oral 14:02:47 [facility] CPT-50171 Hepatitis A ped/adol 2 dose schedule 14:02:47 [facility] CPT-83626 Gardasil 14:02:47 [facility] CPT-45686 Administration single or combination vac cine inc oral 11:40:38 [facility] CPT-20823 Gardasil 11:40:38 [facility] CPT-44380 Administration single or combination vac cine inc oral 09:45:00 CDT CPT-85439 Influenza Preservative Free split virus >age 3 09:45:00 CDT CPT-78332 Venipuncture Draw Fee 07:59:02 CDT
--- OUTSIDE RECORDS SUMMARY | 2019-10-10 20:41 | XMS REPORT | Clinical Summary ---
Author Author Beka, Son Rodriguez [facility] Address Unknown Phone [...] TABS 1 daily 2 NORGESTIM-ETH ESTRAD TRIPHASIC 74494552007 Active Tiffany Brennan Active ORTHO TRI-CYCLEN (28) 0.18/0.215/0.25 MG-35 MCG TABS 1 daily NORGESTIM-ETH ESTRAD TRIPHASIC 47457632703 No Longer Active Ned Navarrete MD Active ZOFRAN ODT 4 MG TBDP 1 po q6hr PRN Nausea ONDAN SETRON 96893142413 No Longer Active Ned Navarrete MD Active [facility] MEL[facility] 3 MG TABS Take 1 tablet at bedtime. 2013 MELATONIN 22276519296 No Longer Active Ned Navarrete MD Activ e BIOTIN 1000 MCG TABS Take 2 tablets daily BIOTI N 58096751824 No Longer Active Ned Navarrete MD Active OMEPRAZOLE 20 MG CPDR 1 tablet by mouth daily O MEPRAZOLE 23520858144 No Longer Active Mariana Moses APRN Active LATUDA 80 MG TABS 1 tablet daily LURASIDONE HCL 72151085018 No Longer Active Mariana Moses APRN Active ZOVIRAX 400 MG TABS Take 1 tablet every 8 hours as needed 2 ACYCLOVIR 15410467148 No Longer Active Ned Navarrete MD Activ e ZITHROMAX Z-CHACE 250 MG TABS 2 today, then 1 daily for 4 days 201 10/06/11 AZITHROMYCIN 30652779548 No Longer Active Ned Navarrete MD Active HYDROXYZINE HCL 25 MG TABS Take 1-2 tablets daily HYDROXYZINE HCL 30281508233 Active Ned Navarrete MD Active TOPAMAX 100 MG TABS 1 tablet daily TOPIRAMATE 54 141067707 No Longer Active Ned Navarrete MD Active AMOXICILLIN 500 MG CAPS 2 po BID x 10 days AMOX ICILLIN 45574127841 No Longer Active Saskia Simon MD PhD Active NAPROSYN 375 MG TAB 1 twice a day as needed for chest pain 04/01 NAPROXEN 10263334035 No Longer Active Saskia Simon MD PhD Active HYDROCORTISONE 2.5 % EXT CREA Apply three times a day to aff ected area HYDROCORTISONE 58154543874 No Longer Active Ned Navarrete MD Active LORATADINE 10 MG TABS 1 tablet by mouth daily L ORATADINE 61217748399 Active Ned Navarrete MD Active TOPIRAMATE 50 MG TABS 1 QD TOPIRAMATE 73848069379 No Longer Active Ned Navarrete MD Active FANAPT 6 MG TABS 1 BID ILOPERIDONE 96639419868 No L onger Active Ned Navarrete MD Active CIPROFLOXACIN HCL 0.3 % SOLN 1 drop in right eye every 2 hours for 2 days, then 1 drop four times a day CIPROFLOXACIN HCL 84903284653 No Longer Active Ned Navarrete MD Active LORATADINE 10 MG TABS 1 tablet by mouth daily L ORATADINE 85789812354 No Longer Active Ned Navarrete MD Active RANITIDINE HCL 150 MG CAPS 1 twice a day RANITI DINE HCL 78757981279 No Longer Active Ned Navarrete MD Active RANITIDINE HCL 150 MG CAPS 1 twice a day RANITIDINE HCL 150 MG CAPS 297394 RANITIDINE HCL Inactive LORATADINE 10 MG TABS 1 tablet by mouth daily LORATADINE 10 MG TABS 404728 LORATADINE Inactive CIPROFLOXACIN HCL 0.3 % SOLN 1 drop in right eye every 2 hours for 2 days, then 1 drop four times a day CIPROFLOXACIN HCL 0.3 % SOLN 220248 CIPROFLOXACIN HCL Inactive FANAPT 6 MG TABS 1 BID FANAPT 6 MG TABS ILO PERIDONE Inactive TOPIRAMATE 50 MG TABS 1 QD TOPIRAMATE 50 MG TABS 1 06088 TOPIRAMATE Inactive HYDROCORTISONE 2.5 % EXT CREA Apply three times a day to aff ected area HYDROCORTISONE 2.5 % EXT CREA 028730 HYDROCORTIS ONE Inactive NAPROSYN 375 MG TAB 1 twice a day as needed for chest pain 04/01 NAPROSYN 375 MG TAB 19790729 NAPROXEN Inactive TOPAMAX 100 MG TABS 1 tablet daily TOPAMAX 100 MG TABS 147245 TOPIRAMATE Inactive ZOVIRAX 400 MG TABS Take 1 tablet every 8 hours as needed 2 ZOVIRAX 400 MG TABS 497082 ACYCLOVIR Inactive LATUDA 80 MG TABS 1 tablet daily LATUDA 80 MG TA BS LURASIDONE HCL Inactive OMEPRAZOLE 20 MG CPDR 1 tablet by mouth daily OMEPRAZOLE 20 MG CPDR 328949 OMEPRAZOLE Inactive BIOTIN 1000 MCG TABS Take 2 tablets daily BIOTIN 1000 MCG TABS 950336 BIOTIN Inactive [facility] 3 MG TABS Take 1 tablet at bedtime. 2013 [facility] 3 MG TABS 923681 MELATONIN Inactive ZOFRAN ODT 4 MG TBDP 1 po q6hr PRN Nausea ZOFRAN ODT 4 MG TBDP 554967 ONDANSETRON Inactive ORTHO TRI-CYCLEN (28) 0.18/0.215/0.25 MG-35 MCG TABS 1 daily ORTHO TRI-CYCLEN (28) 0.18/0.215/0.25 MG-35 MCG TABS 126526 NORGESTIM-ETH ESTRAD TRIPHASIC Inactive AMOXICILLIN 500 MG CAPS 2 po BID x 10 days AMOXICILLIN 500 MG CAPS 538981 AMOXICILLIN Inactive ZITHROMAX Z-CHACE 250 MG TABS 2 today, then 1 daily for 4 days 201 10/06/11 ZITHROMAX Z-CHACE 250 MG TABS 6763302 AZITHROMYCIN Inac tive Advance Directives Directive Description [...] 16 yo)) Fluzone preservative free (>3 yrs.) [[id number]] Influenza, seasonal, injectable, preservative free MPSV4 (meningococcal polysaccharide vaccination) Menactra meningococcal polysaccharide vaccine (MPSV4) hepatitis A immunization #1 Havrix-Pedi hepa titis A vaccine, unspecified formulation Adacel (Tetanus, reduced Diphtheria, and acellular Per tussis Immunization) Adacel [[id number]] tetanus toxoid, reduced diph theria toxoid, and [...] Name Value Unit Range Description Lab Report: [facility] [place] human chorionic gonadotropin , urine, qualitative (urine test) Negative Negative Encounters Code Encounter Date Provider Facility CPT-57477 Level 3 Est. Patient 17:42:32 CDT Ned Navarrete MD [facility] CPT-19721 Level 3 Est. Patient 11:04:31 [employer] Mariana Torrez APRN [facility] CPT-64189 Level 4 Est. Patient 12:27:05 [employer] Ned Navarrete MD [facility] CPT-88021 Level 3 Est. Patient 11:31:58 [employer] Ned Navarrete MD [facility] CPT-80765 Level 3 Est. Patient 16:49:32 CDT Ned Navarrete MD [facility] CPT-35346 Level 4 Est. Patient 14:11:59 [employer] Saskia green MD PhD [facility] CPT-55276 Level 3 Est. Patient 17:34:25 CDT Ned Navarrete MD [facility] CPT-17107 Level 3 Est. Patient 17:34:19 CDT Ned Navarrete MD [facility] CPT-14458 Level 3 Est. Patient 13:46:05 CDT Ned Navarrete MD [facility] CPT-82981 Level 3 Est. Patient 16:55:47 [employer] Ned Navarrete MD [facility] CPT-84144 Level 2 Est. Patient 17:33:08 [employer] Ned Navarrete MD [facility] CPT-01929 Level 3 Est. Patient 16:25:26 [employer] Ned Navarrete MD [facility] Procedures Code Procedure Name Date Entry Date Standard Desc ription CPT-033 [facility] Med Screen 10:29:44 CDT CPT-14164 Administration 2+ single or combination vaccines inc oral 14:02:47 [employer] CPT-98860 Administration single or combination vac cine inc oral 14:02:47 [employer] CPT-61482 Hepatitis A ped/adol 2 dose schedule 14:02:47 [employer] CPT-49595 Gardasil 14:02:47 [employer] CPT-04312 Administration single or combination vac cine inc oral 11:40:38 [employer] CPT-13034 Gardasil 11:40:38 [employer] CPT-81702 Administration single or combination vac cine inc oral 09:45:00 CDT CPT-33401 Influenza Preservative Free split virus >age 3 09:45:00 CDT CPT-91292 Venipuncture Draw Fee 07:59:02 CDT
--- OUTSIDE RECORDS SUMMARY | 2019-10-10 20:41 | XMS REPORT | Clinical Summary ---
Author Author Admin, Son Chan Organization [employer] Address Unknown Phone Unavailable Allergies, Adverse Reactions, [...] Frances MD 20 weeks gestation of ICD-V28.9 [facility] clarence Hayes LRT Medication List Medication Instructions Start Date Stop Date Generic Name NDC Status Provider Patient Instruction LATUDA 20 MG ORAL TABS LURASIDONE HCL 6164495 0230 Active Breanne Madl INSPECTOR WIRE [employer]OPE Active CEPHALEXIN 500 MG ORAL CAPS CEPHALEXIN 458891 98122 Active Breanne Madl INSPECT[employer] Active LORATADINE 10 MG TABS 1 tablet by mouth daily L ORATADINE 62157711403 No Longer Active Breanne Madl INSPECT[employer] Active HYDROXYZINE HCL 25 MG TABS Take 1-2 tablets daily 2015 HYDROXYZINE HCL 91439379905 No Longer Active Breanne Marcos [employer]PECT[employer] Active ORTHO TRI-CYCLEN (28) 0.18/0.215/0.25 MG-35 MCG TABS 1 daily NORGESTIM-ETH ESTRAD TRIPHASIC 31378032599 No Longer Active Breanne Myersl INSPECTOR [employer]OPE Active CLARITIN 10 MG TAB 1 tablet by mouth daily as needed for itchy r khari LORATADINE 60760329393 No Longer Active Ned Navarrete MD Active AUGMENTIN 875-125 MG TAB 1 po BID x 10 days with food AMOXICILLIN-POT CLAVULANATE 08926306286 No Longer Active Toni Washington DO Active ORTHO TRI-CYCLEN (28) 0.18/0.215/0.25 MG-35 MCG TABS 1 daily NORGESTIM-ETH ESTRAD TRIPHASIC 25363784981 No Longer Active Ned Navarrete MD Active ZOFRAN ODT 4 MG TBDP 1 po q6hr PRN Nausea ONDAN SETRON 67352219360 No Longer Active Ned Navarrete MD Active [facility] 3 MG TABS Take 1 tablet at bedtime. 2013 MELATONIN 38646257833 No Longer Active Ned Navarrete MD Activ e BIOTIN 1000 MCG TABS Take 2 tablets daily BIOTI N 95502508567 No Longer Active Ned Navarrete MD Active OMEPRAZOLE 20 MG CPDR 1 tablet by mouth daily O MEPRAZOLE 29976795876 No Longer Active Mariana Moses APRN Active LATUDA 80 MG TABS 1 tablet daily LURASIDONE HCL 04298003277 No Longer Active Mariana Moses APRN Active ZOVIRAX 400 MG TABS Take 1 tablet every 8 hours as needed 2 ACYCLOVIR 76124688587 No Longer Active Ned Navarrete MD Activ e ZITHROMAX Z-CHACE 250 MG TABS 2 today, then 1 daily for 4 days 201 10/06/11 AZITHROMYCIN 33399328009 No Longer Active Ned Navarrete MD Active TOPAMAX 100 MG TABS 1 tablet daily TOPIRAMATE 54 349493705 No Longer Active Ned Navarrete MD Active AMOXICILLIN 500 MG CAPS 2 po BID x 10 days AMOX ICILLIN 92563541075 No Longer Active Saskia Simon MD PhD Active NAPROSYN 375 MG TAB 1 twice a day as needed for chest pain 04/01 NAPROXEN 12482678606 No Longer Active Saskia Simon MD PhD Active HYDROCORTISONE 2.5 % EXT CREA Apply three times a day to aff ected area HYDROCORTISONE 65777387755 No Longer Active Ned Navarrete MD Active TOPIRAMATE 50 MG TABS 1 QD TOPIRAMATE 44443822764 No Longer Active Ned Navarrete MD Active FANAPT 6 MG TABS 1 BID ILOPERIDONE 53569215749 No L onger Active Ned Navarrete MD Active CIPROFLOXACIN HCL 0.3 % SOLN 1 drop in right eye every 2 hours for 2 days, then 1 drop four times a day CIPROFLOXACIN HCL 03948629237 No Longer Active Ned Navarrete MD Active LORATADINE 10 MG TABS 1 tablet by mouth daily L ORATADINE 88445694462 No Longer Active Ned Navarrete MD Active RANITIDINE HCL 150 MG CAPS 1 twice a day RANITI DINE HCL 41134548137 No Longer Active Ned Navarrete MD Active RANITIDINE HCL 150 MG CAPS 1 twice a day RANITIDINE HCL 150 MG CAPS 941487 RANITIDINE HCL Inactive LORATADINE 10 MG TABS 1 tablet by mouth daily LORATADINE 10 MG TABS 805865 LORATADINE Inactive CIPROFLOXACIN HCL 0.3 % SOLN 1 drop in right eye every 2 hours for 2 days, then 1 drop four times a day CIPROFLOXACIN HCL 0.3 % SOLN 555150 CIPROFLOXACIN HCL Inactive FANAPT 6 MG TABS 1 BID FANAPT 6 MG TABS ILO PERIDONE Inactive TOPIRAMATE 50 MG TABS 1 QD TOPIRAMATE 50 MG TABS 1 84159 TOPIRAMATE Inactive HYDROCORTISONE 2.5 % EXT CREA Apply three times a day to aff ected area HYDROCORTISONE 2.5 % EXT CREA 750549 HYDROCORTIS ONE Inactive NAPROSYN 375 MG TAB 1 twice a day as needed for chest pain 04/01 NAPROSYN 375 MG TAB NAPROXEN Inactive TOPAMAX 100 MG TABS 1 tablet daily TOPAMAX 100 MG TABS 930775 TOPIRAMATE Inactive ZOVIRAX 400 MG TABS Take 1 tablet every 8 hours as needed 2 ZOVIRAX 400 MG TABS 483338 ACYCLOVIR Inactive LATUDA 80 MG TABS 1 tablet daily LATUDA 80 MG TA BS LURASIDONE HCL Inactive OMEPRAZOLE 20 MG CPDR 1 tablet by mouth daily OMEPRAZOLE 20 MG CPDR 912095 OMEPRAZOLE Inactive BIOTIN 1000 MCG TABS Take 2 tablets daily BIOTIN 1000 MCG TABS 711467 BIOTIN Inactive [facility] 3 MG TABS Take 1 tablet at bedtime. 2013 [facility] M[facility] 3 MG TABS 012130 MELATONIN Inactive ZOFRAN ODT 4 MG TBDP 1 po q6hr PRN Nausea ZOFRAN ODT 4 MG TBDP 743474 ONDANSETRON Inactive ORTHO TRI-CYCLEN (28) 0.18/0.215/0.25 MG-35 MCG TABS 1 daily ORTHO TRI-CYCLEN (28) 0.18/0.215/0.25 MG-35 MCG TABS 156187 NORGESTIM-ETH ESTRAD TRIPHASIC Inactive CLARITIN 10 MG TAB 1 tablet by mouth daily as needed for itchy r khari CLARITIN 10 MG TAB 095321 LORATADINE Inactive ORTHO TRI-CYCLEN (28) 0.18/0.215/0.25 MG-35 MCG TABS 1 daily ORTHO TRI-CYCLEN (28) 0.18/0.215/0.25 MG-35 MCG TABS 566787 NORGESTIM-ETH ESTRAD TRIPHASIC Inactive HYDROXYZINE HCL 25 MG TABS Take 1-2 tablets daily 2015 HYDROXYZINE HCL 25 MG TABS 126520 HYDROXYZINE HCL Inactive LORATADINE 10 MG TABS 1 tablet by mouth daily LORATADINE 10 MG TABS 009204 LORATADINE Inactive AMOXICILLIN 500 MG CAPS 2 po BID x 10 days AMOXICILLIN 500 MG CAPS 509548 AMOXICILLIN Inactive ZITHROMAX Z-CHACE 250 MG TABS 2 today, then 1 daily for 4 days 201 10/06/11 ZITHROMAX Z-CHACE 250 MG TABS 1076034 AZITHROMYCIN Inac tive AUGMENTIN 875-125 MG TAB 1 po BID x 10 days with food AUGMENTIN 875-125 MG TAB 814032 AMOXICILLIN-POT CLAVULANATE Inactiv e Advance Directives Directive [...] 18 yo)) Fluzone preservative free (>3 yrs.) [[id number]] Influenza, seasonal, injectable, preservative free MPSV4 (meningococcal polysaccharide vaccination) Menactra meningococcal polysaccharide vaccine (MPSV4) hepatitis A immunization #1 Havrix-Pedi hepa titis A vaccine, unspecified formulation Adacel (Tetanus, reduced Diphtheria, and acellular Per tussis Immunization) Adacel [[id number]] tetanus toxoid, reduced diph theria toxoid, and [...] 11 .0-15.0 platelet count 210 THOUSAND/UL 10*3/mm3 [phone]/11/02 mean platelet volume 10.3 fL 7.5-11.5 Lab [...] ative Encounters Code Encounter Date Provider Facility CPT-84394 Level 2 Est. Patient 12:43:40 CDT Ned Navarrete MD [facility]-11418 Level 3 Est. Patient 14:38:48 CDT Toni duque DO [facility]-24337 Level 3 Est. Patient 09:02:58 TUNNEL KILN REPAIRER George paulson MD [facility]-84639 Level 3 Est. Patient 17:42:32 CDT Ned Navarrete MD [facility] CPT-11508 Level 3 Est. Patient 11:04:31 TUNNEL KILN REPAIRER Mariana Torrez APRN [facility] CPT-06919 Level 4 Est. Patient 12:27:05 TUNNEL KILN REPAIRER Ned Navarrete MD [facility]-33832 Level 3 Est. Patient 11:31:58 TUNNEL KILN REPAIRER Ned Navarrete MD [facility]-35318 Level 3 Est. Patient 16:49:32 CDT Ned Navarrete MD [facility] CPT-07513 Level 4 Est. Patient 14:11:59 TUNNEL KILN REPAIRER Saskia green MD PhD [facility]-79284 Level 3 Est. Patient 17:34:25 CDT Ned Navarrete MD [facility]-66117 Level 3 Est. Patient 17:34:19 CDT Ned Navarrete MD [facility]-74013 Level 3 Est. Patient 13:46:05 CDT Ned Navarrete MD [facility] CPT-58156 Level 3 Est. Patient 16:55:47 TUNNEL KILN REPAIRER Ned Navarrete MD [facility] CPT-24751 Level 2 Est. Patient 17:33:08 TUNNEL KILN REPAIRER Ned Navarrete MD [facility] CPT-64343 Level 3 Est. Patient 16:25:26 TUNNEL KILN REPAIRER Ned Navarrete MD [facility] Procedures Code Procedure Name Date Entry Date Standard Desc ription CPT-21220 Sono OB comp > 14 weeks - XRAY USE ONLY 17:00:59 TUNNEL KILN REPAIRER CPT-40467 UA w micro - LAB USE ONLY 16:59:38 CDT 2015 CPT-31776 TSH - LAB USE ONLY 16:59:38 CDT CPT-56380 Venipuncture Draw Fee 16:59:38 CDT CPT-29676 Spec Collection and Handling Fee 14:01:24 C DT CPT-14126 Visit 14:01:24 CDT CPT-033 [facility] Med Screen 14:03:18 CDT CPT-033 [facility] Med Screen 11:04:57 CDT CPT-033 [facility] Med Screen 10:29:44 CDT CPT-80665 Administration 2+ single or combination vaccines inc oral 14:02:47 TUNNEL KILN REPAIRER CPT-35202 Administration single or combination vac cine inc oral 14:02:47 TUNNEL KILN REPAIRER CPT-09755 Hepatitis A ped/adol 2 dose schedule 14:02:47 TUNNEL KILN REPAIRER CPT-06432 Gardasil 14:02:47 TUNNEL KILN REPAIRER CPT-19541 Administration single or combination vac cine inc oral 11:40:38 TUNNEL KILN REPAIRER CPT-29424 Gardasil 11:40:38 TUNNEL KILN REPAIRER CPT-49996 Administration single or combination vac cine inc oral 09:45:00 CDT CPT-19763 Influenza Preservative Free split virus >age 3 09:45:00 CDT CPT-89776 Venipuncture Draw Fee 07:59:02 CDT
--- OUTSIDE RECORDS SUMMARY | 2019-10-10 20:41 | XMS REPORT | Clinical Summary ---
Author Author Beka, Son Rodriguez 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 2013 MELATONIN 83447266349 No Longer Active Ned Navarrete MD Activ e BIOTIN 1000 MCG TABS Take 2 tablets daily BIOTI N 85227215114 No Longer Active Ned Navarrete MD Active OMEPRAZOLE 20 MG CPDR 1 tablet by mouth daily O MEPRAZOLE 41013082235 No Longer Active Mariana Moses APRN Active LATUDA 80 MG TABS 1 tablet daily LURASIDONE HCL 35224350860 No Longer Active Mariana Moses APRN Active ZOVIRAX 400 MG TABS Take 1 tablet every 8 hours as needed 2 ACYCLOVIR 89113483855 No Longer Active Ned Navarrete MD Activ e ZITHROMAX Z-CHACE 250 MG TABS 2 today, then 1 daily for 4 days 201 10/06/11 AZITHROMYCIN 90523767459 No Longer Active Ned Navarrete MD Active HYDROXYZINE HCL 25 MG TABS Take 1-2 tablets daily HYDROXYZINE HCL 03708017173 Active Ned Navarrete MD Active TOPAMAX 100 MG TABS 1 tablet daily TOPIRAMATE 54 560822598 No Longer Active Ned Navarrete MD Active AMOXICILLIN 500 MG CAPS 2 po BID x 10 days AMOX ICILLIN 98917344378 No Longer Active Saskia Torri Madril MD PhD Active NAPROSYN 375 MG TAB 1 twice a day as needed for chest pain 04/01 NAPROXEN 71890572745 No Longer Active Saskia Simon MD PhD Active HYDROCORTISONE 2.5 % EXT CREA Apply three times a day to aff ected area HYDROCORTISONE 69424941229 No Longer Active Ned Navarrete MD Active LORATADINE 10 MG TABS 1 tablet by mouth daily L ORATADINE 64454431049 Active Ned Navarrete MD Active TOPIRAMATE 50 MG TABS 1 QD TOPIRAMATE 56936299810 No Longer Active Ned Navarrete MD Active FANAPT 6 MG TABS 1 BID ILOPERIDONE 32423437354 No L onger Active Ned Navarrete MD Active CIPROFLOXACIN HCL 0.3 % SOLN 1 drop in right eye every 2 hours for 2 days, then 1 drop four times a day CIPROFLOXACIN HCL 62193252932 No Longer Active Ned Navarrete MD Active LORATADINE 10 MG TABS 1 tablet by mouth daily L ORATADINE 02639238051 No Longer Active Ned Navarrete MD Active RANITIDINE HCL 150 MG CAPS 1 twice a day RANITI DINE HCL 96688553287 No Longer Active Ned Navarrete MD Active RANITIDINE HCL 150 MG CAPS 1 twice a day RANITIDINE HCL 150 MG CAPS 587898 RANITIDINE HCL Inactive LORATADINE 10 MG TABS 1 tablet by mouth daily LORATADINE 10 MG TABS 849146 LORATADINE Inactive CIPROFLOXACIN HCL 0.3 % SOLN 1 drop in right eye every 2 hours for 2 days, then 1 drop four times a day CIPROFLOXACIN HCL 0.3 % SOLN 526100 CIPROFLOXACIN HCL Inactive FANAPT 6 MG TABS 1 BID FANAPT 6 MG TABS ILO PERIDONE Inactive TOPIRAMATE 50 MG TABS 1 QD TOPIRAMATE 50 MG TABS 1 22350 TOPIRAMATE Inactive HYDROCORTISONE 2.5 % EXT CREA Apply three times a day to aff ected area HYDROCORTISONE 2.5 % EXT CREA 416267 HYDROCORTIS ONE Inactive NAPROSYN 375 MG TAB [...] by mouth daily OMEPRAZOLE 20 MG CPDR 051776 OMEPRAZOLE Inactive BIOTIN 1000 MCG TABS Take 2 tablets daily BIOTIN 1000 MCG TABS 593199 BIOTIN Inactive [facility] 3 MG TABS Take 1 tablet at bedtime. 2013 [facility] M[facility] 3 MG TABS 098236 MELATONIN Inactive ZOFRAN ODT 4 MG TBDP 1 po q6hr PRN Nausea ZOFRAN ODT 4 MG TBDP 346548 ONDANSETRON Inactive ORTHO TRI-CYCLEN (28) 0.18/0.215/0.25 MG-35 MCG TABS 1 daily ORTHO TRI-CYCLEN (28) 0.18/0.215/0.25 MG-35 MCG TABS 858753 NORGESTIM-ETH ESTRAD TRIPHASIC Inactive AMOXICILLIN 500 MG CAPS 2 po BID x 10 days AMOXICILLIN 500 MG CAPS 232537 AMOXICILLIN Inactive ZITHROMAX Z-CHACE 250 MG TABS 2 today, then 1 daily for 4 days 201 10/06/11 ZITHROMAX Z-CHACE 250 MG TABS 8711661 AZITHROMYCIN Inac tive Advance Directives Directive Description [...] 18 yo)) Fluzone preservative free (>3 yrs.) [[id number]] Influenza, seasonal, injectable, preservative free MPSV4 (meningococcal polysaccharide vaccination) Menactra meningococcal polysaccharide vaccine (MPSV4) hepatitis A immunization #1 Havrix-Pedi hepa titis A vaccine, unspecified formulation Adacel (Tetanus, reduced Diphtheria, and acellular Per tussis Immunization) Adacel [[id number]] tetanus toxoid, reduced diph theria toxoid, and [...] Name Value Unit Range Description [facility] human chorionic gonadotropin , urine, qualitative (urine test) Negative Negative Encounters Code Encounter Date Provider Facility CPT-83573 Level 3 Est. Patient 17:42:32 CDT Ned Navarrete MD [facility] CPT-05180 Level 3 Est. Patient 11:04:31 PROCESS ARCHITECT Mariana Torrez APRN [facility] CPT-18609 Level 4 Est. Patient 12:27:05 PROCESS ARCHITECT Ned Navarrete MD [facility] CPT-93630 Level 3 Est. Patient 11:31:58 PROCESS ARCHITECT Ned Navarrete MD [facility] CPT-32039 Level 3 Est. Patient 16:49:32 CDT Ned Navarrete MD [facility] CPT-19051 Level 4 Est. Patient 14:11:59 PROCESS ARCHITECT Saskia green MD PhD [facility] CPT-86358 Level 3 Est. Patient 17:34:25 CDT Ned Navarrete MD [facility] CPT-99706 Level 3 Est. Patient 17:34:19 CDT Ned Navarrete MD [facility] CPT-72353 Level 3 Est. Patient 13:46:05 CDT Ned Navarrete MD [facility] CPT-07503 Level 3 Est. Patient 16:55:47 PROCESS ARCHITECT Ned Navarrete MD [facility] CPT-52102 Level 2 Est. Patient 17:33:08 PROCESS ARCHITECT Ned Navarrete MD [facility] CPT-31657 Level 3 Est. Patient 16:25:26 PROCESS ARCHITECT Ned Navarrete MD [facility] Procedures Code Procedure Name Date Entry Date Standard Desc ription CPT-033 [facility] Med Screen 10:29:44 CDT CPT-62779 Administration 2+ single or combination vaccines inc oral 14:02:47 PROCESS ARCHITECT CPT-95860 Administration single or combination vac cine inc oral 14:02:47 PROCESS ARCHITECT CPT-80482 Hepatitis A ped/adol 2 dose schedule 14:02:47 PROCESS ARCHITECT CPT-47038 Gardasil 14:02:47 PROCESS ARCHITECT CPT-92509 Administration single or combination vac cine inc oral 11:40:38 PROCESS ARCHITECT CPT-41414 Gardasil 11:40:38 PROCESS ARCHITECT CPT-07914 Administration single or combination vac cine inc oral 09:45:00 CDT CPT-11464 Influenza Preservative Free split virus >age 3 09:45:00 CDT CPT-60291 Venipuncture Draw Fee 07:59:02 CDT
--- OUTSIDE RECORDS SUMMARY | 2019-10-10 20:42 | XMS REPORT | Clinical Summary ---
Author Author Beka, Son Rodriguez [facility] Address Unknown Phone Unavailable Allergies, Adverse Reactions, [...] TABS 1 daily 2 NORGESTIM-ETH ESTRAD TRIPHASIC 56767246583 Active Ned Navarrete MD Active ORTHO TRI-CYCLEN (28) 0.18/0.215/0.25 MG-35 MCG TABS 1 daily NORGESTIM-ETH ESTRAD TRIPHASIC 86123206051 No Longer Active Ned Navarrete MD Active ZOFRAN ODT 4 MG TBDP 1 po q6hr PRN Nausea ONDAN SETRON 28622688420 No Longer Active Ned Navarrete MD Active [facility] 3 MG TABS Take 1 tablet at bedtime. 2013 MELATONIN 64812878483 No Longer Active Ned Navarrete MD Activ e BIOTIN 1000 MCG TABS Take 2 tablets daily BIOTI N 79856959522 No Longer Active Ned Navarrete MD Active OMEPRAZOLE 20 MG CPDR 1 tablet by mouth daily O MEPRAZOLE 82771508320 No Longer Active Mariana Moses APRN Active LATUDA 80 MG TABS 1 tablet daily LURASIDONE HCL 91752864876 No Longer Active Mariana Moses APRN Active ZOVIRAX 400 MG TABS Take 1 tablet every 8 hours as needed 2 ACYCLOVIR 85240029794 No Longer Active Ned Navarrete MD Activ e ZITHROMAX Z-CHACE 250 MG TABS 2 today, then 1 daily for 4 days 201 10/06/11 AZITHROMYCIN 14171051975 No Longer Active Ned Navarrete MD Active HYDROXYZINE HCL 25 MG TABS Take 1-2 tablets daily HYDROXYZINE HCL 14064267082 Active Ned Navarrete MD Active TOPAMAX 100 MG TABS 1 tablet daily TOPIRAMATE 54 456273555 No Longer Active Ned Navarrete MD Active AMOXICILLIN 500 MG CAPS 2 po BID x 10 days AMOX ICILLIN 70756998284 No Longer Active Saskia Simon MD PhD Active NAPROSYN 375 MG TAB 1 twice a day as needed for chest pain 04/01 NAPROXEN 72702461350 No Longer Active Saskia Simon MD PhD Active HYDROCORTISONE 2.5 % EXT CREA Apply three times a day to aff ected area HYDROCORTISONE 92153661584 No Longer Active Ned Navarrete MD Active LORATADINE 10 MG TABS 1 tablet by mouth daily L ORATADINE 23530898651 Active Crystal Bowles Active TOPIRAMATE 50 MG TABS 1 QD TOPIRAMATE 90057245092 No Longer Active Ned Navarrete MD Active FANAPT 6 MG TABS 1 BID ILOPERIDONE 26128831841 No L onger Active Ned Navarrete MD Active CIPROFLOXACIN HCL 0.3 % SOLN 1 drop in right eye every 2 hours for 2 days, then 1 drop four times a day CIPROFLOXACIN HCL 37445169597 No Longer Active Ned Navarrete MD Active LORATADINE 10 MG TABS 1 tablet by mouth daily L ORATADINE 41455604186 No Longer Active Ned Navarrete MD Active RANITIDINE HCL 150 MG CAPS 1 twice a day RANITI DINE HCL 24310512317 No Longer Active Ned Navarrete MD Active RANITIDINE HCL 150 MG CAPS 1 twice a day RANITIDINE HCL 150 MG CAPS 236225 RANITIDINE HCL Inactive LORATADINE 10 MG TABS 1 tablet by mouth daily LORATADINE 10 MG TABS 823215 LORATADINE Inactive CIPROFLOXACIN HCL 0.3 % SOLN 1 drop in right eye every 2 hours for 2 days, then 1 drop four times a day CIPROFLOXACIN HCL 0.3 % SOLN 791300 CIPROFLOXACIN HCL Inactive FANAPT 6 MG TABS 1 BID FANAPT 6 MG TABS ILO PERIDONE Inactive TOPIRAMATE 50 MG TABS 1 QD TOPIRAMATE 50 MG TABS 1 63035 TOPIRAMATE Inactive HYDROCORTISONE 2.5 % EXT CREA Apply three times a day to aff ected area HYDROCORTISONE 2.5 % EXT CREA 260461 HYDROCORTIS ONE Inactive NAPROSYN 375 MG TAB 1 twice a day as needed for chest pain 04/01 NAPROSYN 375 MG TAB NAPROXEN Inactive TOPAMAX 100 MG TABS 1 tablet daily TOPAMAX 100 MG TABS 489784 TOPIRAMATE Inactive ZOVIRAX 400 MG TABS Take 1 tablet every 8 hours as needed 2 ZOVIRAX 400 MG TABS 299680 ACYCLOVIR Inactive LATUDA 80 MG TABS 1 tablet daily LATUDA 80 MG TA BS LURASIDONE HCL Inactive OMEPRAZOLE 20 MG CPDR 1 tablet by mouth daily OMEPRAZOLE 20 MG CPDR 143125 OMEPRAZOLE Inactive BIOTIN 1000 MCG TABS Take 2 tablets daily BIOTIN 1000 MCG TABS 719988 BIOTIN Inactive [facility] 3 MG TABS Take 1 tablet at bedtime. 2013 [facility] M[facility] 3 MG TABS 769362 MELATONIN Inactive ZOFRAN ODT 4 MG TBDP 1 po q6hr PRN Nausea ZOFRAN ODT 4 MG TBDP 664212 ONDANSETRON Inactive ORTHO TRI-CYCLEN (28) 0.18/0.215/0.25 MG-35 MCG TABS 1 daily ORTHO TRI-CYCLEN (28) 0.18/0.215/0.25 MG-35 MCG TABS 515163 NORGESTIM-ETH ESTRAD TRIPHASIC Inactive AMOXICILLIN 500 MG CAPS 2 po BID x 10 days AMOXICILLIN 500 MG CAPS 143882 AMOXICILLIN Inactive ZITHROMAX Z-CHACE 250 MG TABS 2 today, then 1 daily for 4 days 201 10/06/11 ZITHROMAX Z-CHACE 250 MG TABS 4254340 AZITHROMYCIN Inac tive Advance Directives Directive Description [...] 18 yo)) Fluzone preservative free (>3 yrs.) [[id number]] Influenza, seasonal, injectable, preservative free MPSV4 (meningococcal polysaccharide vaccination) Menactra meningococcal polysaccharide vaccine (MPSV4) hepatitis A immunization #1 Havrix-Pedi hepa titis A vaccine, unspecified formulation Adacel (Tetanus, reduced Diphtheria, and acellular Per tussis Immunization) Adacel [[id number]] tetanus toxoid, reduced diph theria toxoid, and [...] Measured Encounters Code Encounter Date Provider Facility CPT-17397 Level 3 Est. Patient 09:02:58 LABELLING MACHINE OPERATOR George paulson MD [facility] CPT-84362 Level 3 Est. Patient 17:42:32 CDT Ned Navarrete MD [facility]-13786 Level 3 Est. Patient 11:04:31 LABELLING MACHINE OPERATOR Mariana Torrez APRN [facility] CPT-11236 Level 4 Est. Patient 12:27:05 LABELLING MACHINE OPERATOR Ned Navarrete MD [facility] CPT-11142 Level 3 Est. Patient 11:31:58 LABELLING MACHINE OPERATOR Ned Navarrete MD [facility] CPT-97726 Level 3 Est. Patient 16:49:32 CDT Ned Navarrete MD [facility] CPT-82757 Level 4 Est. Patient 14:11:59 LABELLING MACHINE OPERATOR Saskia green MD PhD [facility] CPT-96219 Level 3 Est. Patient 17:34:25 CDT Ned Navarrete MD [facility] CPT-70514 Level 3 Est. Patient 17:34:19 CDT Ned Navarrete MD [facility] CPT-57221 Level 3 Est. Patient 13:46:05 CDT Ned Navarrete MD [facility]-21894 Level 3 Est. Patient 16:55:47 LABELLING MACHINE OPERATOR Ned Navarrete MD [facility] CPT-50592 Level 2 Est. Patient 17:33:08 LABELLING MACHINE OPERATOR Ned Navarrete MD [facility] CPT-72531 Level 3 Est. Patient 16:25:26 LABELLING MACHINE OPERATOR Ned Navarrete MD [facility] Procedures Code Procedure Name Date Entry Date Standard Desc ription CPT-033 [facility] Med Screen 11:04:57 CDT CPT-033 [facility] Med Screen 10:29:44 CDT CPT-91625 Administration 2+ single or combination vaccines inc oral 14:02:47 LABELLING MACHINE OPERATOR CPT-47036 Administration single or combination vac cine inc oral 14:02:47 LABELLING MACHINE OPERATOR CPT-36372 Hepatitis A ped/adol 2 dose schedule 14:02:47 LABELLING MACHINE OPERATOR CPT-64023 Gardasil 14:02:47 LABELLING MACHINE OPERATOR CPT-27346 Administration single or combination vac cine inc oral 11:40:38 LABELLING MACHINE OPERATOR CPT-54628 Gardasil 11:40:38 LABELLING MACHINE OPERATOR CPT-49169 Administration single or combination vac cine inc oral 09:45:00 CDT CPT-75916 Influenza Preservative Free split virus >age 3 09:45:00 CDT CPT-11745 Venipuncture Draw Fee 07:59:02 CDT
--- OUTSIDE RECORDS SUMMARY | 2019-10-10 20:42 | XMS REPORT | Clinical Summary ---
Author Author Admin, Son Chan Organization [employer] Address Unknown Phone Unavailable Allergies, Adverse Reactions, [...] 1 [address] for 3 days PREDNISONE [id number] No Longer Active Ned pérez MD Active CEPHALEXIN 500 MG ORAL CAPS CEPHALEXIN 70832911666 No Longer Active Ned Navarrete MD Active LATUDA 20 MG ORAL TABS LURASIDONE HCL 4916145 0230 Active Breanne Madl TAX TECHNICIAN Active LORATADINE 10 MG TABS 1 tablet by mouth daily L ORATADINE 72910119557 No Longer Active Breanne Madl TAX TECHNICIAN Active HYDROXYZINE HCL 25 MG TABS Take 1-2 tablets daily 2015 HYDROXYZINE HCL 93922061945 No Longer Active Breanne Madl TAX TECHNICIAN Active ORTHO TRI-CYCLEN (28) 0.18/0.215/0.25 MG-35 MCG TABS 1 daily NORGESTIM-ETH ESTRAD TRIPHASIC 78172331653 No Longer Active Breanne Madl TAX TECHNICIAN Active CLARITIN 10 MG TAB 1 tablet by mouth daily as needed for itchy r khari LORATADINE 07072928117 No Longer Active Ned Navarrete MD Active AUGMENTIN 875-125 MG TAB 1 po BID x 10 days with food AMOXICILLIN-POT CLAVULANATE 50931721167 No Longer Active Toni Washington DO Active ORTHO TRI-CYCLEN (28) 0.18/0.215/0.25 MG-35 MCG TABS 1 daily NORGESTIM-ETH ESTRAD TRIPHASIC 19684720187 No Longer Active Ned Navarrete MD Active ZOFRAN ODT 4 MG TBDP 1 po q6hr PRN Nausea ONDAN SETRON 57640367194 No Longer Active Ned Navarrete MD Active [facility] 3 MG TABS Take 1 tablet at bedtime. 2013 MELATONIN 26182554800 No Longer Active Ned Navarrete MD Activ e BIOTIN 1000 MCG TABS Take 2 tablets daily BIOTI N 64609979026 No Longer Active Ned Navarrete MD Active OMEPRAZOLE 20 MG CPDR 1 tablet by mouth daily O MEPRAZOLE 40836973043 No Longer Active Mariana Moses APRN Active LATUDA 80 MG TABS 1 tablet daily LURASIDONE HCL 92773447350 No Longer Active Mariana Moses APRN Active ZOVIRAX 400 MG TABS Take 1 tablet every 8 hours as needed 2 ACYCLOVIR 17116213383 No Longer Active Ned Navarrete MD Activ e ZITHROMAX Z-CHACE 250 MG TABS 2 today, then 1 daily for 4 days 201 10/06/11 AZITHROMYCIN 47178003171 No Longer Active Ned Navarrete MD Active TOPAMAX 100 MG TABS 1 tablet daily TOPIRAMATE 54 825541488 No Longer Active Ned Navarrete MD Active AMOXICILLIN 500 MG CAPS 2 po BID x 10 days AMOX ICILLIN 75673302117 No Longer Active Saskia Simon MD PhD Active NAPROSYN 375 MG TAB 1 twice a day as needed for chest pain 04/01 NAPROXEN 45181394184 No Longer Active Saskia Simon MD PhD Active HYDROCORTISONE 2.5 % EXT CREA Apply three times a day to aff ected area HYDROCORTISONE 58752136434 No Longer Active Ned Navarrete MD Active TOPIRAMATE 50 MG TABS 1 QD TOPIRAMATE 47151248265 No Longer Active Ned Navarrete MD Active FANAPT 6 MG TABS 1 BID ILOPERIDONE 95557628801 No L onger Active Ned Navarrete MD Active CIPROFLOXACIN HCL 0.3 % SOLN 1 drop in right eye every 2 hours for 2 days, then 1 drop four times a day CIPROFLOXACIN HCL 30695143170 No Longer Active Ned Navarrete MD Active LORATADINE 10 MG TABS 1 tablet by mouth daily L ORATADINE 88694302533 No Longer Active Ned Navarrete MD Active RANITIDINE HCL 150 MG CAPS 1 twice a day RANITI DINE HCL 84535358974 No Longer Active Ned Navarrete MD Active RANITIDINE HCL 150 MG CAPS 1 twice a day RANITIDINE HCL 150 MG CAPS 322426 RANITIDINE HCL Inactive LORATADINE 10 MG TABS 1 tablet by mouth daily LORATADINE 10 MG TABS 133138 LORATADINE Inactive CIPROFLOXACIN HCL 0.3 % SOLN 1 drop in right eye every 2 hours for 2 days, then 1 drop four times a day CIPROFLOXACIN HCL 0.3 % SOLN 868570 CIPROFLOXACIN HCL Inactive FANAPT 6 MG TABS 1 BID FANAPT 6 MG TABS ILO PERIDONE Inactive TOPIRAMATE 50 MG TABS 1 QD TOPIRAMATE 50 MG TABS 1 45399 TOPIRAMATE Inactive HYDROCORTISONE 2.5 % EXT CREA Apply three times a day to aff ected area HYDROCORTISONE 2.5 % EXT CREA 854097 HYDROCORTIS ONE Inactive NAPROSYN 375 MG TAB 1 twice a day as needed for chest pain 04/01 NAPROSYN 375 MG TAB NAPROXEN Inactive TOPAMAX 100 MG TABS 1 tablet daily TOPAMAX 100 MG TABS 198901 TOPIRAMATE Inactive ZOVIRAX 400 MG TABS Take 1 tablet every 8 hours as needed 2 ZOVIRAX 400 MG TABS 901990 ACYCLOVIR Inactive LATUDA 80 MG TABS 1 tablet daily LATUDA 80 MG TA BS LURASIDONE HCL Inactive OMEPRAZOLE 20 MG CPDR 1 tablet by mouth daily OMEPRAZOLE 20 MG CPDR 484577 OMEPRAZOLE Inactive BIOTIN 1000 MCG TABS Take 2 tablets daily BIOTIN 1000 MCG TABS 144403 BIOTIN Inactive [facility] M[facility] 3 MG TABS Take 1 tablet at bedtime. 2013 [facility] M[facility] 3 MG TABS 363808 MELATONIN Inactive ZOFRAN ODT 4 MG TBDP 1 po q6hr PRN Nausea ZOFRAN ODT 4 MG TBDP 648890 ONDANSETRON Inactive ORTHO TRI-CYCLEN (28) 0.18/0.215/0.25 MG-35 MCG TABS 1 daily ORTHO TRI-CYCLEN (28) 0.18/0.215/0.25 MG-35 MCG TABS 699724 NORGESTIM-ETH ESTRAD TRIPHASIC Inactive CLARITIN 10 MG TAB 1 tablet by mouth daily as needed for itchy r khari CLARITIN 10 MG TAB 986002 LORATADINE Inactive ORTHO TRI-CYCLEN (28) 0.18/0.215/0.25 MG-35 MCG TABS 1 daily ORTHO TRI-CYCLEN (28) 0.18/0.215/0.25 MG-35 MCG TABS 564629 NORGESTIM-ETH ESTRAD TRIPHASIC Inactive HYDROXYZINE HCL 25 MG TABS Take 1-2 tablets daily 2015 HYDROXYZINE HCL 25 MG TABS 548315 HYDROXYZINE HCL Inactive LORATADINE 10 MG TABS 1 tablet by mouth daily LORATADINE 10 MG TABS 537717 LORATADINE Inactive CEPHALEXIN 500 MG ORAL CAPS CEPHALEX IN 500 MG ORAL CAPS 667388 CEPHALEXIN Inactive PREDNISONE 20 MG TABS Take 2 daily for 3 days and then 1 [address]man [address] for 3 days PREDNISONE 20 MG TABS 464110 PREDNISONE Inacti ve AMOXICILLIN 500 MG CAPS 2 po BID x 10 days AMOXICILLIN 500 MG CAPS 261814 AMOXICILLIN Inactive ZITHROMAX Z-CHACE 250 MG TABS 2 today, then 1 daily for 4 days 201 10/06/11 ZITHROMAX Z-CHACE 250 MG TABS 4103999 AZITHROMYCIN Inac tive AUGMENTIN 875-125 MG TAB 1 po BID x 10 days with food AUGMENTIN 875-125 MG TAB 668960 AMOXICILLIN-POT CLAVULANATE Inactiv e Advance Directives Directive [...] 18 yo)) Fluzone preservative free (>3 yrs.) [[id number]] Influenza, seasonal, injectable, preservative free MPSV4 (meningococcal polysaccharide vaccination) Menactra meningococcal polysaccharide vaccine (MPSV4) hepatitis A immunization #1 Havrix-Pedi hepa titis A vaccine, unspecified formulation Adacel (Tetanus, reduced Diphtheria, and acellular Per tussis Immunization) Adacel [[id number]] tetanus toxoid, reduced diph theria toxoid, and [...] formulation oral polio vaccine (OPV) #3 Historical acse ovirus vaccine, unspecified formulation MMR [...] 11 .0-15.0 platelet count 210 THOUSAND/UL 10*3/mm3 089-768 5312/11/02 mean platelet volume 10.3 fL 7.5-11.5 Lab [...] N Encounters Code Encounter Date Provider Facility CPT-31528 Level 3 Est. Patient 15:21:38 ANIMAL PHYSIOLOGY TEACHER Rayna Pepper APRN [facility] CPT-69468 Level 3 Est. Patient 15:35:51 ANIMAL PHYSIOLOGY TEACHER Ned Navarrete MD [facility] CPT-47640 Level 2 Est. Patient 12:43:40 CDT Ned Navarrete MD [facility] CPT-98496 Level 3 Est. Patient 14:38:48 CDT Toni duque DO [facility] CPT-12248 Level 3 Est. Patient 09:02:58 ANIMAL PHYSIOLOGY TEACHER George paulson MD [facility] CPT-94733 Level 3 Est. Patient 17:42:32 CDT Ned Navarrete MD [facility] CPT-90324 Level 3 Est. Patient 11:04:31 ANIMAL PHYSIOLOGY TEACHER Mariana Torrez ALEXIS [facility] CPT-95463 Level 4 Est. Patient 12:27:05 ANIMAL PHYSIOLOGY TEACHER Ned Navarrete MD [facility] CPT-34003 Level 3 Est. Patient 11:31:58 ANIMAL PHYSIOLOGY TEACHER Ned Navarrete MD [facility] CPT-49012 Level 3 Est. Patient 16:49:32 CDT Ned Navarrete MD [facility] CPT-91645 Level 4 Est. Patient 14:11:59 ANIMAL PHYSIOLOGY TEACHER Saskia green MD PhD [facility] CPT-03599 Level 3 Est. Patient 17:34:25 CDT Ned Navarrete MD [facility] CPT-77823 Level 3 Est. Patient 17:34:19 CDT Ned Navarrete MD [facility] CPT-55580 Level 3 Est. Patient 13:46:05 CDT Ned Navarrete MD [facility] CPT-33582 Level 3 Est. Patient 16:55:47 ANIMAL PHYSIOLOGY TEACHER Ned Navarrete MD [facility] CPT-68925 Level 2 Est. Patient 17:33:08 ANIMAL PHYSIOLOGY TEACHER Ned Navarrete MD [facility] CPT-50836 Level 3 Est. Patient 16:25:26 ANIMAL PHYSIOLOGY TEACHER Ned Navarrete MD [facility] Procedures Code Procedure Name Date Entry Date Standard Desc ription CPT-67092 Visit 15:07:16 ANIMAL PHYSIOLOGY TEACHER CPT-97294 Visit 16:49:41 ANIMAL PHYSIOLOGY TEACHER CPT-23388 Sono OB limited - XRAY USE ONLY 16:38:01 CS T CPT-48514 Sono OB comp > 14 weeks - XRAY USE ONLY 17:00:59 ANIMAL PHYSIOLOGY TEACHER CPT-92231 UA w micro - LAB USE ONLY 16:59:38 CDT 2015 CPT-92510 TSH - LAB USE ONLY 16:59:38 CDT CPT-75697 Venipuncture Draw Fee 16:59:38 CDT CPT-15014 Spec Collection and Handling Fee 14:01:24 C DT CPT-64931 Visit 14:01:24 CDT CPT-033 KB Med Screen 14:03:18 CDT CPT-033 KB Med Screen 11:04:57 CDT CPT-033 KB Med Screen 10:29:44 CDT CPT-26726 Administration 2+ single or combination vaccines inc oral 14:02:47 ANIMAL PHYSIOLOGY TEACHER CPT-19182 Administration single or combination vac cine inc oral 14:02:47 ANIMAL PHYSIOLOGY TEACHER CPT-64427 Hepatitis A ped/adol 2 dose schedule 14:02:47 ANIMAL PHYSIOLOGY TEACHER CPT-26772 Gardasil 14:02:47 ANIMAL PHYSIOLOGY TEACHER CPT-15645 Administration single or combination vac cine inc oral 11:40:38 ANIMAL PHYSIOLOGY TEACHER CPT-05567 Gardasil 11:40:38 ANIMAL PHYSIOLOGY TEACHER CPT-46743 Administration single or combination vac cine inc oral 09:45:00 CDT CPT-90702 Influenza Preservative Free split virus >age 3 09:45:00 CDT CPT-43052 Venipuncture Draw Fee 07:59:02 CDT
--- OUTSIDE RECORDS SUMMARY | 2019-10-10 20:42 | XMS REPORT | Clinical Summary ---
Author Author Admin, Son Chan Organization [employer] Address Unknown Phone Unavailable Allergies, Adverse Reactions, [...] Frances MD 20 weeks gestation of ICD-V28.9 [facility] clarence Hayes LRT Medication List Medication Instructions Start Date Stop Date Generic Name NDC Status Provider Patient Instruction LATUDA 20 MG ORAL TABS LURASIDONE HCL 0526649 0230 Active Breanne Madl PEST CONTROL SPECIALIST Active CEPHALEXIN 500 MG ORAL CAPS CEPHALEXIN 797168 77233 Active Breanne Madl PEST CONTROL SPECIALIST Active LORATADINE 10 MG TABS 1 tablet by mouth daily L ORATADINE 44805998711 No Longer Active Breanne Madl PEST CONTROL SPECIALIST Active HYDROXYZINE HCL 25 MG TABS Take 1-2 tablets daily 2015 HYDROXYZINE HCL 33831169646 No Longer Active Breanne Marcos PEST CONTROL SPECIALIST Active ORTHO TRI-CYCLEN (28) 0.18/0.215/0.25 MG-35 MCG TABS 1 daily NORGESTIM-ETH ESTRAD TRIPHASIC 53306617531 No Longer Active Breanne Myersl PEST CONTROL SPECIALIST Active CLARITIN 10 MG TAB 1 tablet by mouth daily as needed for itchy r khari LORATADINE 40446528915 No Longer Active Ned Navarrete MD Active AUGMENTIN 875-125 MG TAB 1 po BID x 10 days with food AMOXICILLIN-POT CLAVULANATE 69522732521 No Longer Active Toni Washington DO Active ORTHO TRI-CYCLEN (28) 0.18/0.215/0.25 MG-35 MCG TABS 1 daily NORGESTIM-ETH ESTRAD TRIPHASIC 08707677378 No Longer Active Ned Navarrete MD Active ZOFRAN ODT 4 MG TBDP 1 po q6hr PRN Nausea ONDAN SETRON 60578054353 No Longer Active Ned Navarrete MD Active [facility] MEL[facility] 3 MG TABS Take 1 tablet at bedtime. 2013 MELATONIN 38453133463 No Longer Active Ned Navarrete MD Activ e BIOTIN 1000 MCG TABS Take 2 tablets daily BIOTI N 07752577137 No Longer Active Ned Navarrete MD Active OMEPRAZOLE 20 MG CPDR 1 tablet by mouth daily O MEPRAZOLE 01374983673 No Longer Active Mariana Moses APRN Active LATUDA 80 MG TABS 1 tablet daily LURASIDONE HCL 26985360134 No Longer Active Mariana Moses APRN Active ZOVIRAX 400 MG TABS Take 1 tablet every 8 hours as needed 2 ACYCLOVIR 88645928106 No Longer Active Ned Navarrete MD Activ e ZITHROMAX Z-CHACE 250 MG TABS 2 today, then 1 daily for 4 days 201 10/06/11 AZITHROMYCIN 59925501166 No Longer Active Ned Navarrete MD Active TOPAMAX 100 MG TABS 1 tablet daily TOPIRAMATE 54 809048269 No Longer Active Ned Navarrete MD Active AMOXICILLIN 500 MG CAPS 2 po BID x 10 days AMOX ICILLIN 39798696401 No Longer Active Saskia Simon MD PhD Active NAPROSYN 375 MG TAB 1 twice a day as needed for chest pain 04/01 NAPROXEN 32156649846 No Longer Active Saskia Simon MD PhD Active HYDROCORTISONE 2.5 % EXT CREA Apply three times a day to aff ected area HYDROCORTISONE 53754309890 No Longer Active Ned Navarrete MD Active TOPIRAMATE 50 MG TABS 1 QD TOPIRAMATE 03692634285 No Longer Active Ned Navarrete MD Active FANAPT 6 MG TABS 1 BID ILOPERIDONE 83100732376 No L onger Active Ned Navarrete MD Active CIPROFLOXACIN HCL 0.3 % SOLN 1 drop in right eye every 2 hours for 2 days, then 1 drop four times a day CIPROFLOXACIN HCL 44497060553 No Longer Active Ned Navarrete MD Active LORATADINE 10 MG TABS 1 tablet by mouth daily L ORATADINE 14772838767 No Longer Active Ned Navarrete MD Active RANITIDINE HCL 150 MG CAPS 1 twice a day RANITI DINE HCL 32489295732 No Longer Active Ned Navarrete MD Active RANITIDINE HCL 150 MG CAPS 1 twice a day RANITIDINE HCL 150 MG CAPS 327602 RANITIDINE HCL Inactive LORATADINE 10 MG TABS 1 tablet by mouth daily LORATADINE 10 MG TABS 040159 LORATADINE Inactive CIPROFLOXACIN HCL 0.3 % SOLN 1 drop in right eye every 2 hours for 2 days, then 1 drop four times a day CIPROFLOXACIN HCL 0.3 % SOLN 207769 CIPROFLOXACIN HCL Inactive FANAPT 6 MG TABS 1 BID FANAPT 6 MG TABS ILO PERIDONE Inactive TOPIRAMATE 50 MG TABS 1 QD TOPIRAMATE 50 MG TABS 1 07052 TOPIRAMATE Inactive HYDROCORTISONE 2.5 % EXT CREA Apply three times a day to aff ected area HYDROCORTISONE 2.5 % EXT CREA 071068 HYDROCORTIS ONE Inactive NAPROSYN 375 MG TAB 1 twice a day as needed for chest pain 04/01 NAPROSYN 375 MG TAB NAPROXEN Inactive TOPAMAX 100 MG TABS 1 tablet daily TOPAMAX 100 MG TABS 289373 TOPIRAMATE Inactive ZOVIRAX 400 MG TABS Take 1 tablet every 8 hours as needed 2 ZOVIRAX 400 MG TABS 443907 ACYCLOVIR Inactive LATUDA 80 MG TABS 1 tablet daily LATUDA 80 MG TA BS LURASIDONE HCL Inactive OMEPRAZOLE 20 MG CPDR 1 tablet by mouth daily OMEPRAZOLE 20 MG CPDR 704756 OMEPRAZOLE Inactive BIOTIN 1000 MCG TABS Take 2 tablets daily BIOTIN 1000 MCG TABS 226112 BIOTIN Inactive [facility] 3 MG TABS Take 1 tablet at bedtime. 2013 [facility] M[facility] 3 MG TABS 996485 MELATONIN Inactive ZOFRAN ODT 4 MG TBDP 1 po q6hr PRN Nausea ZOFRAN ODT 4 MG TBDP 759360 ONDANSETRON Inactive ORTHO TRI-CYCLEN (28) 0.18/0.215/0.25 MG-35 MCG TABS 1 daily ORTHO TRI-CYCLEN (28) 0.18/0.215/0.25 MG-35 MCG TABS 055168 NORGESTIM-ETH ESTRAD TRIPHASIC Inactive CLARITIN 10 MG TAB 1 tablet by mouth daily as needed for itchy r khari CLARITIN 10 MG TAB 949394 LORATADINE Inactive ORTHO TRI-CYCLEN (28) 0.18/0.215/0.25 MG-35 MCG TABS 1 daily ORTHO TRI-CYCLEN (28) 0.18/0.215/0.25 MG-35 MCG TABS 695429 NORGESTIM-ETH ESTRAD TRIPHASIC Inactive HYDROXYZINE HCL 25 MG TABS Take 1-2 tablets daily 2015 HYDROXYZINE HCL 25 MG TABS 570224 HYDROXYZINE HCL Inactive LORATADINE 10 MG TABS 1 tablet by mouth daily LORATADINE 10 MG TABS 168818 LORATADINE Inactive AMOXICILLIN 500 MG CAPS 2 po BID x 10 days AMOXICILLIN 500 MG CAPS 767588 AMOXICILLIN Inactive ZITHROMAX Z-CHACE 250 MG TABS 2 today, then 1 daily for 4 days 201 10/06/11 ZITHROMAX Z-CHACE 250 MG TABS 6235207 AZITHROMYCIN Inac tive AUGMENTIN 875-125 MG TAB 1 po BID x 10 days with food AUGMENTIN 875-125 MG TAB 526986 AMOXICILLIN-POT CLAVULANATE Inactiv e Advance Directives Directive [...] 18 yo)) Fluzone preservative free (>3 yrs.) [[id number]] Influenza, seasonal, injectable, preservative free MPSV4 (meningococcal polysaccharide vaccination) Menactra meningococcal polysaccharide vaccine (MPSV4) hepatitis A immunization #1 Havrix-Pedi hepa titis A vaccine, unspecified formulation Adacel (Tetanus, reduced Diphtheria, and acellular Per tussis Immunization) Adacel [[id number]] tetanus toxoid, reduced diph theria toxoid, and [...] 11 .0-15.0 platelet count 210 THOUSAND/UL 10*3/mm3 774-169 5256/11/02 mean platelet volume 10.3 fL 7.5-11.5 Lab [...] ative Encounters Code Encounter Date Provider Facility CPT-17691 Level 2 Est. Patient 12:43:40 CDT Ned Navarrete MD [facility]-10355 Level 3 Est. Patient 14:38:48 CDT Toni duque DO [facility]-52586 Level 3 Est. Patient 09:02:58 FIRE EXTINGUISHER INSPECTOR George paulson MD [facility]-98536 Level 3 Est. Patient 17:42:32 CDT Ned Navarrete MD [facility] CPT-71989 Level 3 Est. Patient 11:04:31 FIRE EXTINGUISHER INSPECTOR Mariana Torrez APRN [facility] CPT-99474 Level 4 Est. Patient 12:27:05 FIRE EXTINGUISHER INSPECTOR Ned Navarrete MD [facility]-78440 Level 3 Est. Patient 11:31:58 FIRE EXTINGUISHER INSPECTOR Ned Navarrete MD [facility]-02987 Level 3 Est. Patient 16:49:32 CDT Ned Navarrete MD [facility] CPT-17952 Level 4 Est. Patient 14:11:59 FIRE EXTINGUISHER INSPECTOR Saskia green MD PhD [facility]-58857 Level 3 Est. Patient 17:34:25 CDT Ned Navarrete MD [facility]-36907 Level 3 Est. Patient 17:34:19 CDT Ned Navarrete MD [facility]-39830 Level 3 Est. Patient 13:46:05 CDT Ned Navarrete MD [facility] CPT-10306 Level 3 Est. Patient 16:55:47 FIRE EXTINGUISHER INSPECTOR Ned Navarrete MD [facility] CPT-83581 Level 2 Est. Patient 17:33:08 FIRE EXTINGUISHER INSPECTOR Ned Navarrete MD [facility] CPT-85364 Level 3 Est. Patient 16:25:26 FIRE EXTINGUISHER INSPECTOR Ned Navarrete MD [facility] Procedures Code Procedure Name Date Entry Date Standard Desc ription CPT-11849 Sono OB comp > 14 weeks - XRAY USE ONLY 17:00:59 FIRE EXTINGUISHER INSPECTOR CPT-86647 UA w micro - LAB USE ONLY 16:59:38 CDT 2015 CPT-98329 TSH - LAB USE ONLY 16:59:38 CDT CPT-84760 Venipuncture Draw Fee 16:59:38 CDT CPT-92080 Spec Collection and Handling Fee 14:01:24 C DT CPT-74643 Visit 14:01:24 CDT CPT-033 [facility] Med Screen 14:03:18 CDT CPT-033 [facility] Med Screen 11:04:57 CDT CPT-033 [facility] Med Screen 10:29:44 CDT CPT-03880 Administration 2+ single or combination vaccines inc oral 14:02:47 FIRE EXTINGUISHER INSPECTOR CPT-40174 Administration single or combination vac cine inc oral 14:02:47 FIRE EXTINGUISHER INSPECTOR CPT-09215 Hepatitis A ped/adol 2 dose schedule 14:02:47 FIRE EXTINGUISHER INSPECTOR CPT-90837 Gardasil 14:02:47 FIRE EXTINGUISHER INSPECTOR CPT-86865 Administration single or combination vac cine inc oral 11:40:38 FIRE EXTINGUISHER INSPECTOR CPT-77357 Gardasil 11:40:38 FIRE EXTINGUISHER INSPECTOR CPT-71652 Administration single or combination vac cine inc oral 09:45:00 CDT CPT-26431 Influenza Preservative Free split virus >age 3 09:45:00 CDT CPT-68380 Venipuncture Draw Fee 07:59:02 CDT
--- OUTSIDE RECORDS SUMMARY | 2019-10-10 20:43 | XMS REPORT | Clinical Summary ---
Author Author Admin, Son Chan Organization [employer] Address Unknown Phone Unavailable Allergies, Adverse Reactions, [...] Frances MD 20 weeks gestation of ICD-V28.9 [facility] clarence Hayes LRT Medication List Medication Instructions Start Date Stop Date Generic Name NDC Status Provider Patient Instruction LATUDA 20 MG ORAL TABS LURASIDONE HCL 1872621 0230 Active Breanne Madl [employer] Active CEPHALEXIN 500 MG ORAL CAPS CEPHALEXIN 052700 58001 Active Breanne Madl [employer] Active LORATADINE 10 MG TABS 1 tablet by mouth daily L ORATADINE 28062311101 No Longer Active Breanne Madl [employer] Active HYDROXYZINE HCL 25 MG TABS Take 1-2 tablets daily 2015 HYDROXYZINE HCL 98458301805 No Longer Active Breanne Marcos [employer] Active ORTHO TRI-CYCLEN (28) 0.18/0.215/0.25 MG-35 MCG TABS 1 daily NORGESTIM-ETH ESTRAD TRIPHASIC 34278427134 No Longer Active Breanne Myersl [employer] Active CLARITIN 10 MG TAB 1 tablet by mouth daily as needed for itchy r khari LORATADINE 30830292709 No Longer Active Ned Navarrete MD Active AUGMENTIN 875-125 MG TAB 1 po BID x 10 days with food AMOXICILLIN-POT CLAVULANATE 85166702919 No Longer Active Toni Washington DO Active ORTHO TRI-CYCLEN (28) 0.18/0.215/0.25 MG-35 MCG TABS 1 daily NORGESTIM-ETH ESTRAD TRIPHASIC 47072987562 No Longer Active Ned Navarrete MD Active ZOFRAN ODT 4 MG TBDP 1 po q6hr PRN Nausea ONDAN SETRON 62183186325 No Longer Active Ned Navarrete MD Active [facility] 3 MG TABS Take 1 tablet at bedtime. 2013 MELATONIN 14497249920 No Longer Active Ned Navarrete MD Activ e BIOTIN 1000 MCG TABS Take 2 tablets daily BIOTI N 75597516964 No Longer Active Ned Navarrete MD Active OMEPRAZOLE 20 MG CPDR 1 tablet by mouth daily O MEPRAZOLE 33506923208 No Longer Active Mariana Moses APRN Active LATUDA 80 MG TABS 1 tablet daily LURASIDONE HCL 64774723400 No Longer Active Mariana Moses APRN Active ZOVIRAX 400 MG TABS Take 1 tablet every 8 hours as needed 2 ACYCLOVIR 53249073877 No Longer Active Ned Navarrete MD Activ e ZITHROMAX Z-CHACE 250 MG TABS 2 today, then 1 daily for 4 days 201 10/06/11 AZITHROMYCIN 36318157728 No Longer Active Ned Navarrete MD Active TOPAMAX 100 MG TABS 1 tablet daily TOPIRAMATE 54 484721754 No Longer Active Ned Navarrete MD Active AMOXICILLIN 500 MG CAPS 2 po BID x 10 days AMOX ICILLIN 98305458671 No Longer Active Saskia Simon MD PhD Active NAPROSYN 375 MG TAB 1 twice a day as needed for chest pain 04/01 NAPROXEN 91439728345 No Longer Active Saskia Simon MD PhD Active HYDROCORTISONE 2.5 % EXT CREA Apply three times a day to aff ected area HYDROCORTISONE 08199695982 No Longer Active Ned Navarrete MD Active TOPIRAMATE 50 MG TABS 1 QD TOPIRAMATE 39502817571 No Longer Active Ned Navarrete MD Active FANAPT 6 MG TABS 1 BID ILOPERIDONE 48961535586 No L onger Active Ned Navarrete MD Active CIPROFLOXACIN HCL 0.3 % SOLN 1 drop in right eye every 2 hours for 2 days, then 1 drop four times a day CIPROFLOXACIN HCL 52106717051 No Longer Active Ned Navarrete MD Active LORATADINE 10 MG TABS 1 tablet by mouth daily L ORATADINE 84940910661 No Longer Active Ned Navarrete MD Active RANITIDINE HCL 150 MG CAPS 1 twice a day RANITI DINE HCL 90353362184 No Longer Active Ned Navarrete MD Active RANITIDINE HCL 150 MG CAPS 1 twice a day RANITIDINE HCL 150 MG CAPS 692655 RANITIDINE HCL Inactive LORATADINE 10 MG TABS 1 tablet by mouth daily LORATADINE 10 MG TABS 065602 LORATADINE Inactive CIPROFLOXACIN HCL 0.3 % SOLN 1 drop in right eye every 2 hours for 2 days, then 1 drop four times a day CIPROFLOXACIN HCL 0.3 % SOLN 609467 CIPROFLOXACIN HCL Inactive FANAPT 6 MG TABS 1 BID FANAPT 6 MG TABS ILO PERIDONE Inactive TOPIRAMATE 50 MG TABS 1 QD TOPIRAMATE 50 MG TABS 1 61279 TOPIRAMATE Inactive HYDROCORTISONE 2.5 % EXT CREA Apply three times a day to aff ected area HYDROCORTISONE 2.5 % EXT CREA 939185 HYDROCORTIS ONE Inactive NAPROSYN 375 MG TAB 1 twice a day as needed for chest pain 04/01 NAPROSYN 375 MG TAB NAPROXEN Inactive TOPAMAX 100 MG TABS 1 tablet daily TOPAMAX 100 MG TABS 061699 TOPIRAMATE Inactive ZOVIRAX 400 MG TABS Take 1 tablet every 8 hours as needed 2 ZOVIRAX 400 MG TABS 644872 ACYCLOVIR Inactive LATUDA 80 MG TABS 1 tablet daily LATUDA 80 MG TA BS LURASIDONE HCL Inactive OMEPRAZOLE 20 MG CPDR 1 tablet by mouth daily OMEPRAZOLE 20 MG CPDR 077183 OMEPRAZOLE Inactive BIOTIN 1000 MCG TABS Take 2 tablets daily BIOTIN 1000 MCG TABS 370656 BIOTIN Inactive [facility] M[facility] 3 MG TABS Take 1 tablet at bedtime. 2013 [facility] M[facility] 3 MG TABS 379529 MELATONIN Inactive ZOFRAN ODT 4 MG TBDP 1 po q6hr PRN Nausea ZOFRAN ODT 4 MG TBDP 268789 ONDANSETRON Inactive ORTHO TRI-CYCLEN (28) 0.18/0.215/0.25 MG-35 MCG TABS 1 daily ORTHO TRI-CYCLEN (28) 0.18/0.215/0.25 MG-35 MCG TABS 324316 NORGESTIM-ETH ESTRAD TRIPHASIC Inactive CLARITIN 10 MG TAB 1 tablet by mouth daily as needed for itchy r khari CLARITIN 10 MG TAB 629710 LORATADINE Inactive ORTHO TRI-CYCLEN (28) 0.18/0.215/0.25 MG-35 MCG TABS 1 daily ORTHO TRI-CYCLEN (28) 0.18/0.215/0.25 MG-35 MCG TABS 017377 NORGESTIM-ETH ESTRAD TRIPHASIC Inactive HYDROXYZINE HCL 25 MG TABS Take 1-2 tablets daily 2015 HYDROXYZINE HCL 25 MG TABS 265966 HYDROXYZINE HCL Inactive LORATADINE 10 MG TABS 1 tablet by mouth daily LORATADINE 10 MG TABS 585434 LORATADINE Inactive AMOXICILLIN 500 MG CAPS 2 po BID x 10 days AMOXICILLIN 500 MG CAPS 717124 AMOXICILLIN Inactive ZITHROMAX Z-CHACE 250 MG TABS 2 today, then 1 daily for 4 days 201 10/06/11 ZITHROMAX Z-CHACE 250 MG TABS 1027448 AZITHROMYCIN Inac tive AUGMENTIN 875-125 MG TAB 1 po BID x 10 days with food AUGMENTIN 875-125 MG TAB 831111 AMOXICILLIN-POT CLAVULANATE Inactiv e Advance Directives Directive [...] 18 yo)) Fluzone preservative free (>3 yrs.) [[id number]] Influenza, seasonal, injectable, preservative free MPSV4 (meningococcal polysaccharide vaccination) Menactra meningococcal polysaccharide vaccine (MPSV4) hepatitis A immunization #1 Havrix-Pedi hepa titis A vaccine, unspecified formulation Adacel (Tetanus, reduced Diphtheria, and acellular Per tussis Immunization) Adacel [[id number]] tetanus toxoid, reduced diph theria toxoid, and [...] 11 .0-15.0 platelet count 210 THOUSAND/UL 10*3/mm3 945-326 2408/11/02 mean platelet volume 10.3 fL 7.5-11.5 Lab [...] ative Encounters Code Encounter Date Provider Facility CPT-10661 Level 2 Est. Patient 12:43:40 CDT Ned Navarrete MD [facility]-96250 Level 3 Est. Patient 14:38:48 CDT Toni duque DO [facility]-87055 Level 3 Est. Patient 09:02:58 [employer]ICIAN [employer] George paulson MD [facility]-55241 Level 3 Est. Patient 17:42:32 CDT Ned Navarrete MD [facility] [place] CPT-56405 Level 3 Est. Patient 11:04:31 [employer]OT[employer]RICIAN HELPER Mariana Torrez APRN [facility] CPT-56001 Level 4 Est. Patient 12:27:05 AUTOMOTIVE ELECTRICIAN HELPER Ned Navarrete MD [facility]-12425 Level 3 Est. Patient 11:31:58 AUTOMOTIVE ELECTRICIAN HELPER Ned Navarrete MD [facility]-60222 Level 3 Est. Patient 16:49:32 CDT Ned Navarrete MD [facility] CPT-06022 Level 4 Est. Patient 14:11:59 [employer]OMOTIVE [employer]LECTRICIAN HELPER Saskia green MD PhD [facility]-64992 Level 3 Est. Patient 17:34:25 CDT Ned Navarrete MD [facility]-55043 Level 3 Est. Patient 17:34:19 CDT Ned Navarrete MD [facility]-37007 Level 3 Est. Patient 13:46:05 CDT Ned Navarrete MD [facility] CPT-90883 Level 3 Est. Patient 16:55:47 AUTOMOTIVE ELECTRICIAN HELPER Ned Navarrete MD [facility] CPT-28223 Level 2 Est. Patient 17:33:08 AUTOMOTIVE ELECTRICIAN HELPER Ned Navarrete MD [facility] CPT-26486 Level 3 Est. Patient 16:25:26 AUTOMOTIVE ELECTRICIAN HELPER Ned Navarrete MD [facility] Procedures Code Procedure Name Date Entry Date Standard Desc ription CPT-04428 Sono OB comp > 14 weeks - XRAY USE ONLY 17:00:59 AUTOMOTIVE ELECTRICIAN HELPER CPT-04134 UA w micro - LAB USE ONLY 16:59:38 CDT 2015 CPT-72529 TSH - LAB USE ONLY 16:59:38 CDT CPT-04421 Venipuncture Draw Fee 16:59:38 CDT CPT-28883 Spec Collection and Handling Fee 14:01:24 C DT CPT-59207 Visit 14:01:24 CDT CPT-033 [facility] Med Screen 14:03:18 CDT CPT-033 [facility] Med Screen 11:04:57 CDT CPT-033 [facility] Med Screen 10:29:44 CDT CPT-83565 Administration 2+ single or combination vaccines inc oral 14:02:47 AUTOMOTIVE ELECTRICIAN HELPER CPT-47896 Administration single or combination vac cine inc oral 14:02:47 AUTOMOTIVE ELECTRICIAN HELPER CPT-65226 Hepatitis A ped/adol 2 dose schedule 14:02:47 AUTOMOTIVE ELECTRICIAN HELPER CPT-72856 Gardasil 14:02:47 AUTOMOTIVE ELECTRICIAN HELPER CPT-29942 Administration single or combination vac cine inc oral 11:40:38 AUTOMOTIVE ELECTRICIAN HELPER CPT-15666 Gardasil 11:40:38 AUTOMOTIVE ELECTRICIAN HELPER CPT-26948 Administration single or combination vac cine inc oral 09:45:00 CDT CPT-49671 Influenza Preservative Free split virus >age 3 09:45:00 CDT CPT-09617 Venipuncture Draw Fee 07:59:02 CDT
--- OUTSIDE RECORDS SUMMARY | 2019-10-10 20:43 | XMS REPORT | Clinical Summary ---
Author Author Beka, Son Rodriguez [facility] Address Unknown Phone Unavailable Allergies, Adverse Reactions, [...] Dizziness and giddiness Gastroenteritis 558.9 Resolved Ned Dmuont Other and unspecified noninfectious gastroenteritis and colitis [...] TABS 1 daily 2 NORGESTIM-ETH ESTRAD TRIPHASIC 98511078185 Active Ned Navarrete MD Active ORTHO TRI-CYCLEN (28) 0.18/0.215/0.25 MG-35 MCG TABS 1 daily NORGESTIM-ETH ESTRAD TRIPHASIC 81097333072 No Longer Active Ned Navarrete MD Active ZOFRAN ODT 4 MG TBDP 1 po q6hr PRN Nausea ONDAN SETRON 41848442518 No Longer Active Ned Navarrete MD Active [facility] MEL[facility] 3 MG TABS Take 1 tablet at bedtime. 2013 MELATONIN 86893708756 No Longer Active Ned Navarrete MD Activ e BIOTIN 1000 MCG TABS Take 2 tablets daily BIOTI N 22783421118 No Longer Active Ned Navarrete MD Active OMEPRAZOLE 20 MG CPDR 1 tablet by mouth daily O MEPRAZOLE 84648747661 No Longer Active Mariana Moses APRN Active LATUDA 80 MG TABS 1 tablet daily LURASIDONE HCL 68328454737 No Longer Active Mariana Moses APRN Active ZOVIRAX 400 MG TABS Take 1 tablet every 8 hours as needed 2 ACYCLOVIR 70407319541 No Longer Active Ned Navarrete MD Activ e ZITHROMAX Z-CHACE 250 MG TABS 2 today, then 1 daily for 4 days 201 10/06/11 AZITHROMYCIN 32245006772 No Longer Active Ned Navarrete MD Active HYDROXYZINE HCL 25 MG TABS Take 1-2 tablets daily HYDROXYZINE HCL 40915913235 Active Ned Navarrete MD Active TOPAMAX 100 MG TABS 1 tablet daily TOPIRAMATE 54 842756828 No Longer Active Ned Navarrete MD Active AMOXICILLIN 500 MG CAPS 2 po BID x 10 days AMOX ICILLIN 97115308549 No Longer Active Saskia Simon MD PhD Active NAPROSYN 375 MG TAB 1 twice a day as needed for chest pain 04/01 NAPROXEN 20314521899 No Longer Active Saskia Simon MD PhD Active HYDROCORTISONE 2.5 % EXT CREA Apply three times a day to aff ected area HYDROCORTISONE 87291963437 No Longer Active Ned Navarrete MD Active LORATADINE 10 MG TABS 1 tablet by mouth daily L ORATADINE 07075891853 Active Ned Navarrete MD Active TOPIRAMATE 50 MG TABS 1 QD TOPIRAMATE 27187947776 No Longer Active Ned aNvarrete MD Active FANAPT 6 MG TABS 1 BID ILOPERIDONE 05095829378 No L onger Active Ned Navarrete MD Active CIPROFLOXACIN HCL 0.3 % SOLN 1 drop in right eye every 2 hours for 2 days, then 1 drop four times a day CIPROFLOXACIN HCL 61644525126 No Longer Active Ned Navarrete MD Active LORATADINE 10 MG TABS 1 tablet by mouth daily L ORATADINE 15501966859 No Longer Active Ned Navarrete MD Active RANITIDINE HCL 150 MG CAPS 1 twice a day RANITI DINE HCL 21627679940 No Longer Active Ned Navarrete MD Active RANITIDINE HCL 150 MG CAPS 1 twice a day RANITIDINE HCL 150 MG CAPS 125640 RANITIDINE HCL Inactive LORATADINE 10 MG TABS 1 tablet by mouth daily LORATADINE 10 MG TABS 740132 LORATADINE Inactive CIPROFLOXACIN HCL 0.3 % SOLN 1 drop in right eye every 2 hours for 2 days, then 1 drop four times a day CIPROFLOXACIN HCL 0.3 % SOLN 319007 CIPROFLOXACIN HCL Inactive FANAPT 6 MG TABS 1 BID FANAPT 6 MG TABS ILO PERIDONE Inactive TOPIRAMATE 50 MG TABS 1 QD TOPIRAMATE 50 MG TABS 1 68627 TOPIRAMATE Inactive HYDROCORTISONE 2.5 % EXT CREA Apply three times a day to aff ected area HYDROCORTISONE 2.5 % EXT CREA 798242 HYDROCORTIS ONE Inactive NAPROSYN 375 MG TAB 1 twice a day as needed for chest pain 04/01 NAPROSYN 375 MG TAB 19790729 NAPROXEN Inactive TOPAMAX 100 MG TABS 1 tablet daily TOPAMAX 100 MG TABS 656889 TOPIRAMATE Inactive ZOVIRAX 400 MG TABS Take 1 tablet every 8 hours as needed 2 ZOVIRAX 400 MG TABS 19720728 ACYCLOVIR Inactive LATUDA 80 MG TABS 1 tablet daily LATUDA 80 MG TA BS LURASIDONE HCL Inactive OMEPRAZOLE 20 MG CPDR 1 tablet by mouth daily OMEPRAZOLE 20 MG CPDR 256619 OMEPRAZOLE Inactive BIOTIN 1000 MCG TABS Take 2 tablets daily BIOTIN 1000 MCG TABS 242691 BIOTIN Inactive [facility] M[facility] 3 MG TABS Take 1 tablet at bedtime. 2013 [facility] M[facility] 3 MG TABS 206553 MELATONIN Inactive ZOFRAN ODT 4 MG TBDP 1 po q6hr PRN Nausea ZOFRAN ODT 4 MG TBDP 928803 ONDANSETRON Inactive ORTHO TRI-CYCLEN (28) 0.18/0.215/0.25 MG-35 MCG TABS 1 daily ORTHO TRI-CYCLEN (28) 0.18/0.215/0.25 MG-35 MCG TABS 068546 NORGESTIM-ETH ESTRAD TRIPHASIC Inactive AMOXICILLIN 500 MG CAPS 2 po BID x 10 days AMOXICILLIN 500 MG CAPS 363336 AMOXICILLIN Inactive ZITHROMAX Z-CHACE 250 MG TABS 2 today, then 1 daily for 4 days 201 10/06/11 ZITHROMAX Z-CHACE 250 MG TABS 8177340 AZITHROMYCIN Inac tive Advance Directives Directive Description [...] 18 yo)) Fluzone preservative free (>3 yrs.) [[id number]] Influenza, seasonal, injectable, preservative free MPSV4 (meningococcal polysaccharide vaccination) Menactra meningococcal polysaccharide vaccine (MPSV4) hepatitis A immunization #1 Havrix-Pedi hepa titis A vaccine, unspecified formulation Adacel (Tetanus, reduced Diphtheria, and acellular Per tussis Immunization) Adacel [[id number]] tetanus toxoid, reduced diph theria toxoid, and [...] Range Description blood pressure, diastolic - 8462-4 59 mm[Hg] BP michele blood pressure, systolic - 8480-6 94 mm[Hg] BP sys height E&M - 8302-2 68.25 [in_us] Bdy h eight pulse rate E&M - 8867-4 59 /min H eart rate temperature E&M 98 [degF] Body temp erature weight E&M - 3141-9 136 [lb_av] Weigh t Measured blood pressure, diastolic [...] Negative Encounters Code Encounter Date Provider Facility CPT-97672 Level 3 Est. Patient 17:42:32 CDT Ned Navarrete MD [facility] CPT-30099 Level 3 Est. Patient 11:04:31 [employer] Mariana Torrez APRN [facility] CPT-87825 Level 4 Est. Patient 12:27:05 [employer] Ned Navarrete MD [facility] CPT-38019 Level 3 Est. Patient 11:31:58 [employer] Ned Navarrete MD [facility] CPT-79782 Level 3 Est. Patient 16:49:32 CDT Ned Navarrete MD [facility] CPT-01774 Level 4 Est. Patient 14:11:59 [employer] Saskia green MD PhD [facility] CPT-53285 Level 3 Est. Patient 17:34:25 CDT Ned Navarrete MD [facility] CPT-11786 Level 3 Est. Patient 17:34:19 CDT Ned Navarrete MD [facility] CPT-70564 Level 3 Est. Patient 13:46:05 CDT Ned Navarrete MD [facility] CPT-48484 Level 3 Est. Patient 16:55:47 [employer] Ned Navarrete MD [facility] CPT-58458 Level 2 Est. Patient 17:33:08 [employer] Ned Navarrete MD [facility] CPT-31939 Level 3 Est. Patient 16:25:26 [employer] Ned Navarrete MD [facility] Procedures Code Procedure Name Date Entry Date Standard Desc ription CPT-033 [facility] Med Screen 11:04:57 CDT CPT-033 [facility] Med Screen 10:29:44 CDT CPT-81153 Administration 2+ single or combination vaccines inc oral 14:02:47 [employer] CPT-29721 Administration single or combination vac cine inc oral 14:02:47 [employer] CPT-45100 Hepatitis A ped/adol 2 dose schedule 14:02:47 [employer] CPT-85245 Gardasil 14:02:47 [employer] CPT-18803 Administration single or combination vac cine inc oral 11:40:38 [employer] CPT-82598 Gardasil 11:40:38 [employer] CPT-69382 Administration single or combination vac cine inc oral 09:45:00 CDT CPT-80029 Influenza Preservative Free split virus >age 3 09:45:00 CDT CPT-17218 Venipuncture Draw Fee 07:59:02 CDT
--- OUTSIDE RECORDS SUMMARY | 2019-10-10 20:43 | XMS REPORT | Clinical Summary ---
Author Author Admin, Son Chan Organization [place] Address Unknown Phone Unavailable Allergies, Adverse Reactions, [...] LATUDA 20 MG ORAL TABS LURASIDONE HCL 7769631 0230 Active Breanne Madl GANG PUNCH OPERATOR Active CEPHALEXIN 500 MG ORAL CAPS CEPHALEXIN 253140 46575 Active Breanne Madl GANG PUNCH OPERATOR Active LORATADINE 10 MG TABS 1 tablet by mouth daily L ORATADINE 45300313100 No Longer Active Breanne Madl GANG PUNCH OPERATOR Active HYDROXYZINE HCL 25 MG TABS Take 1-2 tablets daily 2015 HYDROXYZINE HCL 15241027750 No Longer Active Breanne Madl GANG PUNCH OPERATOR Active ORTHO TRI-CYCLEN (28) 0.18/0.215/0.25 MG-35 MCG TABS 1 daily NORGESTIM-ETH ESTRAD TRIPHASIC 57095962473 No Longer Active Breanne Madl GANG PUNCH OPERATOR Active CLARITIN 10 MG TAB 1 tablet by mouth daily as needed for itchy r khari LORATADINE 63524792358 No Longer Active Ned Navarrete MD Active AUGMENTIN 875-125 MG TAB 1 po BID x 10 days with food AMOXICILLIN-POT CLAVULANATE 10066052170 No Longer Active Toni Washington DO Active ORTHO TRI-CYCLEN (28) 0.18/0.215/0.25 MG-35 MCG TABS 1 daily NORGESTIM-ETH ESTRAD TRIPHASIC 50421622579 No Longer Active Ned Navarrete MD Active ZOFRAN ODT 4 MG TBDP 1 po q6hr PRN Nausea ONDAN SETRON 44589840396 No Longer Active Ned Navarrete MD Active [facility]EL[facility] 3 MG TABS Take 1 tablet at bedtime. 2013 MELATONIN 87615593978 No Longer Active Ned Navarrete MD Activ e BIOTIN 1000 MCG TABS Take 2 tablets daily BIOTI N 49303756301 No Longer Active Ned Navarrete MD Active OMEPRAZOLE 20 MG CPDR 1 tablet by mouth daily O MEPRAZOLE 45576341965 No Longer Active Mariana Moses APRN Active LATUDA 80 MG TABS 1 tablet daily LURASIDONE HCL 66174574306 No Longer Active Mariana Moses APRN Active ZOVIRAX 400 MG TABS Take 1 tablet every 8 hours as needed 2 ACYCLOVIR 21661631086 No Longer Active Ned Navarrete MD Activ e ZITHROMAX Z-CHACE 250 MG TABS 2 today, then 1 daily for 4 days 201 10/06/11 AZITHROMYCIN 64389172160 No Longer Active Ned Navarrete MD Active TOPAMAX 100 MG TABS 1 tablet daily TOPIRAMATE 54 894924092 No Longer Active Ned Navarrete MD Active AMOXICILLIN 500 MG CAPS 2 po BID x 10 days AMOX ICILLIN 95697505187 No Longer Active Saskia Simon MD PhD Active NAPROSYN 375 MG TAB 1 twice a day as needed for chest pain 04/01 NAPROXEN 09010858539 No Longer Active Saskia Simon MD PhD Active HYDROCORTISONE 2.5 % EXT CREA Apply three times a day to aff ected area HYDROCORTISONE 16223130365 No Longer Active Ned Navarrete MD Active TOPIRAMATE 50 MG TABS 1 QD TOPIRAMATE 34920003328 No Longer Active Ned Navarrete MD Active FANAPT 6 MG TABS 1 BID ILOPERIDONE 69161678699 No L onger Active Ned Navarrete MD Active CIPROFLOXACIN HCL 0.3 % SOLN 1 drop in right eye every 2 hours for 2 days, then 1 drop four times a day CIPROFLOXACIN HCL 03449380062 No Longer Active Ned Navarrete MD Active LORATADINE 10 MG TABS 1 tablet by mouth daily L ORATADINE 48514896336 No Longer Active Ned Navarrete MD Active RANITIDINE HCL 150 MG CAPS 1 twice a day RANITI DINE HCL 13585738489 No Longer Active Ned Navarrete MD Active RANITIDINE HCL 150 MG CAPS 1 twice a day RANITIDINE HCL 150 MG CAPS 342833 RANITIDINE HCL Inactive LORATADINE 10 MG TABS 1 tablet by mouth daily LORATADINE 10 MG TABS 729034 LORATADINE Inactive CIPROFLOXACIN HCL 0.3 % SOLN 1 drop in right eye every 2 hours for 2 days, then 1 drop four times a day CIPROFLOXACIN HCL 0.3 % SOLN 675236 CIPROFLOXACIN HCL Inactive FANAPT 6 MG TABS 1 BID FANAPT 6 MG TABS ILO PERIDONE Inactive TOPIRAMATE 50 MG TABS 1 QD TOPIRAMATE 50 MG TABS 1 40197 TOPIRAMATE Inactive HYDROCORTISONE 2.5 % EXT CREA Apply three times a day to aff ected area HYDROCORTISONE 2.5 % EXT CREA 301852 HYDROCORTIS ONE Inactive NAPROSYN 375 MG TAB 1 twice a day as needed for chest pain 04/01 NAPROSYN 375 MG TAB NAPROXEN Inactive TOPAMAX 100 MG TABS 1 tablet daily TOPAMAX 100 MG TABS 211247 TOPIRAMATE Inactive ZOVIRAX 400 MG TABS Take 1 tablet every 8 hours as needed ZOVIRAX 400 MG TABS 670680 ACYCLOVIR Inactive LATUDA 80 MG TABS 1 tablet daily LATUDA 80 MG TA BS LURASIDONE HCL Inactive OMEPRAZOLE 20 MG CPDR 1 tablet by mouth daily OMEPRAZOLE 20 MG CPDR 976008 OMEPRAZOLE Inactive BIOTIN 1000 MCG TABS Take 2 tablets daily BIOTIN 1000 MCG TABS 070453 BIOTIN Inactive [facility] 3 MG TABS Take 1 tablet at bedtime. 2013 [facility] M[facility] 3 MG TABS 086075 MELATONIN Inactive ZOFRAN ODT 4 MG TBDP 1 po q6hr PRN Nausea ZOFRAN ODT 4 MG TBDP 132541 ONDANSETRON Inactive ORTHO TRI-CYCLEN (28) 0.18/0.215/0.25 MG-35 MCG TABS 1 daily ORTHO TRI-CYCLEN (28) 0.18/0.215/0.25 MG-35 MCG TABS 998547 NORGESTIM-ETH ESTRAD TRIPHASIC Inactive CLARITIN 10 MG TAB 1 tablet by mouth daily as needed for itchy r khari CLARITIN 10 MG TAB 962622 LORATADINE Inactive ORTHO TRI-CYCLEN (28) 0.18/0.215/0.25 MG-35 MCG TABS 1 daily ORTHO TRI-CYCLEN (28) 0.18/0.215/0.25 MG-35 MCG TABS 079628 NORGESTIM-ETH ESTRAD TRIPHASIC Inactive HYDROXYZINE HCL 25 MG TABS Take 1-2 tablets daily 2015 HYDROXYZINE HCL 25 MG TABS 991829 HYDROXYZINE HCL Inactive LORATADINE 10 MG TABS 1 tablet by mouth daily LORATADINE 10 MG TABS 059189 LORATADINE Inactive AMOXICILLIN 500 MG CAPS 2 po BID x 10 days AMOXICILLIN 500 MG CAPS 350286 AMOXICILLIN Inactive ZITHROMAX Z-CHACE 250 MG TABS 2 today, then 1 daily for 4 days 201 10/06/11 ZITHROMAX Z-CHACE 250 MG TABS 4515808 AZITHROMYCIN Inac tive AUGMENTIN 875-125 MG TAB 1 po BID x 10 days with food AUGMENTIN 875-125 MG TAB 748940 AMOXICILLIN-POT CLAVULANATE Inactiv e Advance Directives Directive [...] 18 yo)) Fluzone preservative free (>3 yrs.) [[id number]] Influenza, seasonal, injectable, preservative free MPSV4 (meningococcal polysaccharide vaccination) Menactra meningococcal polysaccharide vaccine (MPSV4) hepatitis A immunization #1 Havrix-Pedi hepa titis A vaccine, unspecified formulation Adacel (Tetanus, reduced Diphtheria, and acellular Per tussis Immunization) Adacel [[id number]] tetanus toxoid, reduced diph theria toxoid, and [...] 5.0-8.5 Encounters Code Encounter Date Provider Facility CPT-37205 Level 2 Est. Patient 12:43:40 CDT Ned Navarrete MD [facility]-59551 Level 3 Est. Patient 14:38:48 CDT Toni duque DO [facility]-51705 Level 3 Est. Patient 09:02:58 SAFETY SCIENTIST George paulson MD [facility]-19050 Level 3 Est. Patient 17:42:32 CDT Ned Navarrete MD [facility]-27677 Level 3 Est. Patient 11:04:31 SAFETY SCIENTIST Mariana Torrez APRN [facility]-03980 Level 4 Est. Patient 12:27:05 SAFETY SCIENTIST Ned Navarrete MD [facility]-10596 Level 3 Est. Patient 11:31:58 SAFETY SCIENTIST Ned Navarrete MD [facility]-26210 Level 3 Est. Patient 16:49:32 CDT Ned Navarrete MD [facility]-40228 Level 4 Est. Patient 14:11:59 SAFETY SCIENTIST Saskia green MD PhD [facility]-43972 Level 3 Est. Patient 17:34:25 CDT Ned Navarrete MD [facility]-55404 Level 3 Est. Patient 17:34:19 CDT Ned Navarrete MD [facility]60170 Level 3 Est. Patient 13:46:05 CDT Ned Navarrete MD [facility]-85082 Level 3 Est. Patient 16:55:47 SAFETY SCIENTIST Ned Navarrete MD [facility] CPT-10625 Level 2 Est. Patient 17:33:08 SAFETY SCIENTIST Ned Navarrete MD [facility] CPT-17563 Level 3 Est. Patient 16:25:26 SAFETY SCIENTIST Ned Navarrete MD [facility] Procedures Code Procedure Name Date Entry Date Standard Desc ription CPT-30200 UA w micro - LAB USE ONLY 16:59:38 CDT 2015 CPT-34493 TSH - LAB USE ONLY 16:59:38 CDT CPT-73400 Venipuncture Draw Fee 16:59:38 CDT CPT-34147 Spec Collection and Handling Fee 14:01:24 C DT CPT-94108 Visit 14:01:24 CDT CPT-033 KB Med Screen 14:03:18 CDT CPT-033 KB Med Screen 11:04:57 CDT CPT-033 KB Med Screen 10:29:44 CDT CPT-66386 Administration 2+ single or combination vaccines inc oral 14:02:47 SAFETY SCIENTIST CPT-88184 Administration single or combination vac cine inc oral 14:02:47 SAFETY SCIENTIST CPT-73253 Hepatitis A ped/adol 2 dose schedule 14:02:47 SAFETY SCIENTIST CPT-47125 Gardasil 14:02:47 SAFETY SCIENTIST CPT-72357 Administration single or combination vac cine inc oral 11:40:38 SAFETY SCIENTIST CPT-35995 Gardasil 11:40:38 SAFETY SCIENTIST CPT-55271 Administration single or combination vac cine inc oral 09:45:00 CDT CPT-69368 Influenza Preservative Free split virus >age 3 09:45:00 CDT CPT-14671 Venipuncture Draw Fee 07:59:02 CDT
--- OUTSIDE RECORDS SUMMARY | 2019-10-10 20:43 | XMS REPORT | Clinical Summary ---
Author Author Admin, Son Rodriguez [facility] Address Unknown Phone Unavailable Allergies, Adverse Reactions, [...] 1 herman ly for 3 days PREDNISONE 15905886458 Active Ned Navarrete MD Active CEPHALEXIN 500 MG ORAL CAPS CEPHALEXIN 94826621389 No Longer Active Ned Navarrete MD Active LATUDA 20 MG ORAL TABS LURASIDONE HCL 4563000 0230 Active Breanne Madl CONTOUR GRINDER Active LORATADINE 10 MG TABS 1 tablet by mouth daily L ORATADINE 71575399970 No Longer Active Breanne Madl CONTOUR GRINDER Active HYDROXYZINE HCL 25 MG TABS Take 1-2 tablets daily 2015 HYDROXYZINE HCL 58937629009 No Longer Active Breanne Madl CONTOUR GRINDER Active ORTHO TRI-CYCLEN (28) 0.18/0.215/0.25 MG-35 MCG TABS 1 daily NORGESTIM-ETH ESTRAD TRIPHASIC 34741018883 No Longer Active Breanne Madl CONTOUR GRINDER Active CLARITIN 10 MG TAB 1 tablet by mouth daily as needed for itchy r khari LORATADINE 85474002232 No Longer Active Ned Navarrete MD Active AUGMENTIN 875-125 MG TAB 1 po BID x 10 days with food AMOXICILLIN-POT CLAVULANATE 75530584241 No Longer Active Toni Washington DO Active ORTHO TRI-CYCLEN (28) 0.18/0.215/0.25 MG-35 MCG TABS 1 daily NORGESTIM-ETH ESTRAD TRIPHASIC 96524738420 No Longer Active Ned Navarrete MD Active ZOFRAN ODT 4 MG TBDP 1 po q6hr PRN Nausea ONDAN SETRON 53863147059 No Longer Active Ned Navarrete MD Active [facility] MEL[facility] 3 MG TABS Take 1 tablet at bedtime. 2013 MELATONIN 75808099601 No Longer Active Ned Navarrete MD Activ e BIOTIN 1000 MCG TABS Take 2 tablets daily BIOTI N 43685866572 No Longer Active Ned Navarrete MD Active OMEPRAZOLE 20 MG CPDR 1 tablet by mouth daily O MEPRAZOLE 69458881667 No Longer Active Mariana Moses APRN Active LATUDA 80 MG TABS 1 tablet daily LURASIDONE HCL 09640401242 No Longer Active Mariana Moses APRN Active ZOVIRAX 400 MG TABS Take 1 tablet every 8 hours as needed 2 ACYCLOVIR 23644880310 No Longer Active Ned Navarrete MD Activ e ZITHROMAX Z-CHACE 250 MG TABS 2 today, then 1 daily for 4 days 201 10/06/11 AZITHROMYCIN 45394752650 No Longer Active Ned Navarrete MD Active TOPAMAX 100 MG TABS 1 tablet daily TOPIRAMATE 54 985281976 No Longer Active Ned Navarrete MD Active AMOXICILLIN 500 MG CAPS 2 po BID x 10 days AMOX ICILLIN 28466965224 No Longer Active Saskia Simon MD PhD Active NAPROSYN 375 MG TAB 1 twice a day as needed for chest pain 04/01 NAPROXEN 39142879185 No Longer Active Saskia Simon MD PhD Active HYDROCORTISONE 2.5 % EXT CREA Apply three times a day to aff ected area HYDROCORTISONE 82289244442 No Longer Active Ned Navarrete MD Active TOPIRAMATE 50 MG TABS 1 QD TOPIRAMATE 85427295003 No Longer Active Ned Navarrete MD Active FANAPT 6 MG TABS 1 BID ILOPERIDONE 02274395364 No L onger Active Ned Navarrete MD Active CIPROFLOXACIN HCL 0.3 % SOLN 1 drop in right eye every 2 hours for 2 days, then 1 drop four times a day CIPROFLOXACIN HCL 93838423188 No Longer Active Ned Navarrete MD Active LORATADINE 10 MG TABS 1 tablet by mouth daily L ORATADINE 98152982295 No Longer Active Ned Navarrete MD Active RANITIDINE HCL 150 MG CAPS 1 twice a day RANITI DINE HCL 69294729141 No Longer Active Ned Navarrete MD Active RANITIDINE HCL 150 MG CAPS 1 twice a day RANITIDINE HCL 150 MG CAPS 935138 RANITIDINE HCL Inactive LORATADINE 10 MG TABS 1 tablet by mouth daily LORATADINE 10 MG TABS 746215 LORATADINE Inactive CIPROFLOXACIN HCL 0.3 % SOLN 1 drop in right eye every 2 hours for 2 days, then 1 drop four times a day CIPROFLOXACIN HCL 0.3 % SOLN 575300 CIPROFLOXACIN HCL Inactive FANAPT 6 MG TABS 1 BID FANAPT 6 MG TABS ILO PERIDONE Inactive TOPIRAMATE 50 MG TABS 1 QD TOPIRAMATE 50 MG TABS 1 32299 TOPIRAMATE Inactive HYDROCORTISONE 2.5 % EXT CREA Apply three times a day to aff ected area HYDROCORTISONE 2.5 % EXT CREA 640824 HYDROCORTIS ONE Inactive NAPROSYN 375 MG TAB 1 twice a day as needed for chest pain 04/01 NAPROSYN 375 MG TAB NAPROXEN Inactive TOPAMAX 100 MG TABS 1 tablet daily TOPAMAX 100 MG TABS 026745 TOPIRAMATE Inactive ZOVIRAX 400 MG TABS Take 1 tablet every 8 hours as needed 2 ZOVIRAX 400 MG TABS 461909 ACYCLOVIR Inactive LATUDA 80 MG TABS 1 tablet daily LATUDA 80 MG TA BS LURASIDONE HCL Inactive OMEPRAZOLE 20 MG CPDR 1 tablet by mouth daily OMEPRAZOLE 20 MG CPDR 575645 OMEPRAZOLE Inactive BIOTIN 1000 MCG TABS Take 2 tablets daily BIOTIN 1000 MCG TABS 988990 BIOTIN Inactive [facility] 3 MG TABS Take 1 tablet at bedtime. 2013 [facility] 3 MG TABS 919244 MELATONIN Inactive ZOFRAN ODT 4 MG TBDP 1 po q6hr PRN Nausea ZOFRAN ODT 4 MG TBDP 780193 ONDANSETRON Inactive ORTHO TRI-CYCLEN (28) 0.18/0.215/0.25 MG-35 MCG TABS 1 daily ORTHO TRI-CYCLEN (28) 0.18/0.215/0.25 MG-35 MCG TABS 427905 NORGESTIM-ETH ESTRAD TRIPHASIC Inactive CLARITIN 10 MG TAB 1 tablet by mouth daily as needed for itchy r khari CLARITIN 10 MG TAB 266032 LORATADINE Inactive ORTHO TRI-CYCLEN (28) 0.18/0.215/0.25 MG-35 MCG TABS 1 daily ORTHO TRI-CYCLEN (28) 0.18/0.215/0.25 MG-35 MCG TABS 784445 NORGESTIM-ETH ESTRAD TRIPHASIC Inactive HYDROXYZINE HCL 25 MG TABS Take 1-2 tablets daily 2015 HYDROXYZINE HCL 25 MG TABS 567493 HYDROXYZINE HCL Inactive LORATADINE 10 MG TABS 1 tablet by mouth daily LORATADINE 10 MG TABS 631873 LORATADINE Inactive CEPHALEXIN 500 MG ORAL CAPS CEPHALEX IN 500 MG ORAL CAPS 453656 CEPHALEXIN Inactive AMOXICILLIN 500 MG CAPS 2 po BID x 10 days AMOXICILLIN 500 MG CAPS 296166 AMOXICILLIN Inactive ZITHROMAX Z-CHACE 250 MG TABS 2 today, then 1 daily for 4 days 201 10/06/11 ZITHROMAX Z-CHACE 250 MG TABS 9692563 AZITHROMYCIN Inac tive AUGMENTIN 875-125 MG TAB 1 po BID x 10 days with food AUGMENTIN 875-125 MG TAB 625539 AMOXICILLIN-POT CLAVULANATE Inactiv e Advance Directives Directive [...] 16 yo)) Fluzone preservative free (>3 yrs.) [[id number]] Influenza, seasonal, injectable, preservative free MPSV4 (meningococcal polysaccharide vaccination) Menactra meningococcal polysaccharide vaccine (MPSV4) hepatitis A immunization #1 Havrix-Pedi hepa titis A vaccine, unspecified formulation Adacel (Tetanus, reduced Diphtheria, and acellular Per tussis Immunization) Adacel [[id number]] tetanus toxoid, reduced diph theria toxoid, and [...] 11 .0-15.0 platelet count 210 THOUSAND/UL 10*3/mm3 716-357 6552/11/02 mean platelet volume 10.3 fL 7.5-11.5 Lab [...] ative Encounters Code Encounter Date Provider Facility CPT-67261 Level 3 Est. Patient 15:35:51 GRISTMILLER Ned Navarrete MD [facility] CPT-01598 Level 2 Est. Patient 12:43:40 CDT Ned Navarrete MD [facility]-05312 Level 3 Est. Patient 14:38:48 CDT Toni duque DO [facility]-40221 Level 3 Est. Patient 09:02:58 GRISTMILLER George paulson MD [facility] CPT-29234 Level 3 Est. Patient 17:42:32 CDT Ned Navarrete MD [facility] CPT-68072 Level 3 Est. Patient 11:04:31 GRISTMILLER Mariana Torrez APRN [facility] CPT-26932 Level 4 Est. Patient 12:27:05 GRISTMILLER Ned Navarrete MD [facility] CPT-32132 Level 3 Est. Patient 11:31:58 GRISTMILLER Ned Navarrete MD [facility] CPT-58186 Level 3 Est. Patient 16:49:32 CDT Ned Navarrete MD [facility]-65397 Level 4 Est. Patient 14:11:59 GRISTMILLER Saskia green MD PhD [facility] CPT-09482 Level 3 Est. Patient 17:34:25 CDT Ned Navarrete MD [facility] CPT-49915 Level 3 Est. Patient 17:34:19 CDT Nde Navarrete MD [facility] CPT-91380 Level 3 Est. Patient 13:46:05 CDT Ned Navarrete MD [facility] CPT-63316 Level 3 Est. Patient 16:55:47 GRISTMILLER Ned Navarrete MD [facility] CPT-02274 Level 2 Est. Patient 17:33:08 GRISTMILLER Ned Navarreet MD [facility] CPT-49644 Level 3 Est. Patient 16:25:26 GRISTMILLER Ned Navarrete MD [facility] Procedures Code Procedure Name Date Entry Date Standard Desc ription CPT-18225 Visit 16:49:41 GRISTMILLER CPT-40457 Sono OB limited - XRAY USE ONLY 16:38:01 CS T CPT-36272 Sono OB comp > 14 weeks - XRAY USE ONLY 17:00:59 GRISTMILLER CPT-62933 UA w micro - LAB USE ONLY 16:59:38 CDT 2015 CPT-00782 TSH - LAB USE ONLY 16:59:38 CDT CPT-89412 Venipuncture Draw Fee 16:59:38 CDT CPT-56642 Spec Collection and Handling Fee 14:01:24 C DT CPT-31319 Visit 14:01:24 CDT CPT-033 [facility] Med Screen 14:03:18 CDT CPT-033 [facility] Med Screen 11:04:57 CDT CPT-033 KB Med Screen 10:29:44 CDT CPT-44038 Administration 2+ single or combination vaccines inc oral 14:02:47 GRISTMILLER CPT-68799 Administration single or combination vac cine inc oral 14:02:47 GRISTMILLER CPT-89011 Hepatitis A ped/adol 2 dose schedule 14:02:47 GRISTMILLER CPT-30623 Gardasil 14:02:47 GRISTMILLER CPT-77958 Administration single or combination vac cine inc oral 11:40:38 GRISTMILLER CPT-36305 Gardasil 11:40:38 GRISTMILLER CPT-76216 Administration single or combination vac cine inc oral 09:45:00 CDT CPT-85248 Influenza Preservative Free split virus >age 3 09:45:00 CDT CPT-64328 Venipuncture Draw Fee 07:59:02 CDT
--- OUTSIDE RECORDS SUMMARY | 2019-10-10 20:44 | XMS REPORT | Clinical Summary ---
Author Author Admin, Son Rodriguez [facility] Address Unknown Phone Unavailable Allergies, Adverse Reactions, [...] [address] for 3 days PREDNISONE [id number] No Longer Active Ned pérez MD Active CEPHALEXIN 500 MG ORAL CAPS CEPHALEXIN 96520961558 No Longer Active Ned Navarrete MD Active LATUDA 20 MG ORAL TABS LURASIDONE HCL 3809717 0230 Active Breanne Madl SKATE MAKER Active LORATADINE 10 MG TABS 1 tablet by mouth daily L ORATADINE 11289399324 No Longer Active Breanne Madl SKATE MAKER Active HYDROXYZINE HCL 25 MG TABS Take 1-2 tablets daily 2015 HYDROXYZINE HCL 14792646665 No Longer Active Breanne Madl SKATE MAKER Active ORTHO TRI-CYCLEN (28) 0.18/0.215/0.25 MG-35 MCG TABS 1 daily NORGESTIM-ETH ESTRAD TRIPHASIC 04109244176 No Longer Active Breanne Madl SKATE MAKER Active CLARITIN 10 MG TAB 1 tablet by mouth daily as needed for itchy r khari LORATADINE 01659557786 No Longer Active Ned Navarrete MD Active AUGMENTIN 875-125 MG TAB 1 po BID x 10 days with food AMOXICILLIN-POT CLAVULANATE 71066164102 No Longer Active Toni Washington DO Active ORTHO TRI-CYCLEN (28) 0.18/0.215/0.25 MG-35 MCG TABS 1 daily NORGESTIM-ETH ESTRAD TRIPHASIC 52139175797 No Longer Active Ned Navarrete MD Active ZOFRAN ODT 4 MG TBDP 1 po q6hr PRN Nausea ONDAN SETRON 58286739476 No Longer Active Ned Navarrete MD Active [facility] MEL[facility] 3 MG TABS Take 1 tablet at bedtime. 2013 MELATONIN 81390829738 No Longer Active Ned Navarrete MD Activ e BIOTIN 1000 MCG TABS Take 2 tablets daily BIOTI N 30779472447 No Longer Active Ned Navarrete MD Active OMEPRAZOLE 20 MG CPDR 1 tablet by mouth daily O MEPRAZOLE 86590817776 No Longer Active Mariana Moses APRN Active LATUDA 80 MG TABS 1 tablet daily LURASIDONE HCL 07273285961 No Longer Active Mariana Moses APRN Active ZOVIRAX 400 MG TABS Take 1 tablet every 8 hours as needed 2 ACYCLOVIR 14288043557 No Longer Active Ned Navarrete MD Activ e ZITHROMAX Z-CHACE 250 MG TABS 2 today, then 1 daily for 4 days 201 10/06/11 AZITHROMYCIN 30886822707 No Longer Active Ned Navarrete MD Active TOPAMAX 100 MG TABS 1 tablet daily TOPIRAMATE 54 341254060 No Longer Active Ned Navarrete MD Active AMOXICILLIN 500 MG CAPS 2 po BID x 10 days AMOX ICILLIN 06214204057 No Longer Active Saskia Simon MD PhD Active NAPROSYN 375 MG TAB 1 twice a day as needed for chest pain 04/01 NAPROXEN 84706922070 No Longer Active Saskia Simon MD PhD Active HYDROCORTISONE 2.5 % EXT CREA Apply three times a day to aff ected area HYDROCORTISONE 37937743060 No Longer Active Ned Navarrete MD Active TOPIRAMATE 50 MG TABS 1 QD TOPIRAMATE 52767284824 No Longer Active Ned Navarrete MD Active FANAPT 6 MG TABS 1 BID ILOPERIDONE 56860869801 No L onger Active Ned Navarrete MD Active CIPROFLOXACIN HCL 0.3 % SOLN 1 drop in right eye every 2 hours for 2 days, then 1 drop four times a day CIPROFLOXACIN HCL 33291795331 No Longer Active Ned Navarrete MD Active LORATADINE 10 MG TABS 1 tablet by mouth daily L ORATADINE 85497920907 No Longer Active Ned Navarrete MD Active RANITIDINE HCL 150 MG CAPS 1 twice a day RANITI DINE HCL 55575432758 No Longer Active Ned Navarrete MD Active RANITIDINE HCL 150 MG CAPS 1 twice a day RANITIDINE HCL 150 MG CAPS 580835 RANITIDINE HCL Inactive LORATADINE 10 MG TABS 1 tablet by mouth daily LORATADINE 10 MG TABS 707079 LORATADINE Inactive CIPROFLOXACIN HCL 0.3 % SOLN 1 drop in right eye every 2 hours for 2 days, then 1 drop four times a day CIPROFLOXACIN HCL 0.3 % SOLN 703873 CIPROFLOXACIN HCL Inactive FANAPT 6 MG TABS 1 BID FANAPT 6 MG TABS ILO PERIDONE Inactive TOPIRAMATE 50 MG TABS 1 QD TOPIRAMATE 50 MG TABS 1 33400 TOPIRAMATE Inactive HYDROCORTISONE 2.5 % EXT CREA Apply three times a day to aff ected area HYDROCORTISONE 2.5 % EXT CREA 001261 HYDROCORTIS ONE Inactive NAPROSYN 375 MG TAB 1 twice a day as needed for chest pain 04/01 NAPROSYN 375 MG TAB NAPROXEN Inactive TOPAMAX 100 MG TABS 1 tablet daily TOPAMAX 100 MG TABS 158890 TOPIRAMATE Inactive ZOVIRAX 400 MG TABS Take 1 tablet every 8 hours as needed ZOVIRAX 400 MG TABS 19720728 ACYCLOVIR Inactive LATUDA 80 MG TABS 1 tablet daily LATUDA 80 MG TA BS LURASIDONE HCL Inactive OMEPRAZOLE 20 MG CPDR 1 tablet by mouth daily OMEPRAZOLE 20 MG CPDR 478449 OMEPRAZOLE Inactive BIOTIN 1000 MCG TABS Take 2 tablets daily BIOTIN 1000 MCG TABS 818084 BIOTIN Inactive [facility] M[facility] 3 MG TABS Take 1 tablet at bedtime. 2013 [facility] MEL[facility] 3 MG TABS 432680 MELATONIN Inactive ZOFRAN ODT 4 MG TBDP 1 po q6hr PRN Nausea ZOFRAN ODT 4 MG TBDP 385307 ONDANSETRON Inactive ORTHO TRI-CYCLEN (28) 0.18/0.215/0.25 MG-35 MCG TABS 1 daily ORTHO TRI-CYCLEN (28) 0.18/0.215/0.25 MG-35 MCG TABS 425915 NORGESTIM-ETH ESTRAD TRIPHASIC Inactive CLARITIN 10 MG TAB 1 tablet by mouth daily as needed for itchy r khari CLARITIN 10 MG TAB 731213 LORATADINE Inactive ORTHO TRI-CYCLEN (28) 0.18/0.215/0.25 MG-35 MCG TABS 1 daily ORTHO TRI-CYCLEN (28) 0.18/0.215/0.25 MG-35 MCG TABS 196542 NORGESTIM-ETH ESTRAD TRIPHASIC Inactive HYDROXYZINE HCL 25 MG TABS Take 1-2 tablets daily 2015 HYDROXYZINE HCL 25 MG TABS 780822 HYDROXYZINE HCL Inactive LORATADINE 10 MG TABS 1 tablet by mouth daily LORATADINE 10 MG TABS 914387 LORATADINE Inactive CEPHALEXIN 500 MG ORAL CAPS CEPHALEX IN 500 MG ORAL CAPS 207006 CEPHALEXIN Inactive PREDNISONE 20 MG TABS Take 2 daily for 3 days and then 1 herman ly for 3 days PREDNISONE 20 MG TABS 709449 PREDNISONE Inacti ve AMOXICILLIN 500 MG CAPS 2 po BID x 10 days AMOXICILLIN 500 MG CAPS 149886 AMOXICILLIN Inactive ZITHROMAX Z-CHACE 250 MG TABS 2 today, then 1 daily for 4 days 201 10/06/11 ZITHROMAX Z-CHACE 250 MG TABS 0202626 AZITHROMYCIN Inac tive AUGMENTIN 875-125 MG TAB 1 po BID x 10 days with food AUGMENTIN 875-125 MG TAB 965160 AMOXICILLIN-POT CLAVULANATE Inactiv e Advance Directives Directive [...] 18 yo)) Fluzone preservative free (>3 yrs.) [[id number]] Influenza, seasonal, injectable, preservative free MPSV4 (meningococcal polysaccharide vaccination) Menactra meningococcal polysaccharide vaccine (MPSV4) hepatitis A immunization #1 Havrix-Pedi hepa titis A vaccine, unspecified formulation Adacel (Tetanus, reduced Diphtheria, and acellular Per tussis Immunization) Adacel [XOB913] tetanus toxoid, reduced diph theria toxoid, and [...] formulation oral polio vaccine (OPV) #1 Historical acse ovirus vaccine, unspecified formulation hepatitis B vaccine [...] 11 .0-15.0 platelet count 210 THOUSAND/UL 10*3/mm3 815-994 5150/11/02 mean platelet volume 10.3 fL 7.5-11.5 Lab [...] N Encounters Code Encounter Date Provider Facility CPT-19405 Level 3 Est. Patient 15:35:51 [employer] Ned Navarrete MD [facility] CPT-32632 Level 2 Est. Patient 12:43:40 CDT Ned Navarrete MD [facility] CPT-44835 Level 3 Est. Patient 14:38:48 CDT Toni duque DO [facility] CPT-13714 Level 3 Est. Patient 09:02:58 [employer] George paulson MD [facility] CPT-11509 Level 3 Est. Patient 17:42:32 CDT Ned Navarrete MD [facility] CPT-79886 Level 3 Est. Patient 11:04:31 [employer] Mariana Torrez APRN [facility] CPT-48961 Level 4 Est. Patient 12:27:05 [employer] Ned Navarrete MD [facility] CPT-07385 Level 3 Est. Patient 11:31:58 [employer] Ned Navarrete MD [facility] CPT-53148 Level 3 Est. Patient 16:49:32 CDT Ned Navarrete MD [facility] CPT-13626 Level 4 Est. Patient 14:11:59 [employer] Saskia green MD PhD [facility] CPT-78065 Level 3 Est. Patient 17:34:25 CDT Ned Navarrete MD [facility] CPT-49680 Level 3 Est. Patient 17:34:19 CDT Ned Navarrete MD [facility] CPT-64326 Level 3 Est. Patient 13:46:05 CDT Ned Navarrete MD [facility] CPT-29511 Level 3 Est. Patient 16:55:47 [employer] Ned Navarrete MD [facility] CPT-38143 Level 2 Est. Patient 17:33:08 [employer] Ned Navarrete MD [facility] CPT-73701 Level 3 Est. Patient 16:25:26 [employer] Ned Navarrete MD [facility] Procedures Code Procedure Name Date Entry Date Standard Desc ription CPT-88114 Visit 15:07:16 [employer] CPT-80888 Visit 16:49:41 [employer]AKER [employer] CPT-71671 Sono OB limited - XRAY USE ONLY 16:38:01 CS T CPT-55501 Sono OB comp > 14 weeks - XRAY USE ONLY 17:00:59 [employer] CPT-74438 UA w micro - LAB USE ONLY 16:59:38 CDT 2015 CPT-01173 TSH - LAB USE ONLY 16:59:38 CDT CPT-62296 Venipuncture Draw Fee 16:59:38 CDT CPT-57711 Spec Collection and Handling Fee 14:01:24 C DT CPT-17536 Visit 14:01:24 CDT CPT-033 [facility] Med Screen 14:03:18 CDT CPT-033 [facility] Med Screen 11:04:57 CDT CPT-033 [facility] Med Screen 10:29:44 CDT CPT-91777 Administration 2+ single or combination vaccines inc oral 14:02:47 [employer] CPT-78195 Administration single or combination vac cine inc oral 14:02:47 [employer] CPT-58332 Hepatitis A ped/adol 2 dose schedule 14:02:47 [employer] CPT-26571 Gardasil 14:02:47 [employer] CPT-84186 Administration single or combination vac cine inc oral 11:40:38 [employer] CPT-79538 Gardasil 11:40:38 [employer] CPT-48280 Administration single or combination vac cine inc oral 09:45:00 CDT CPT-34058 Influenza Preservative Free split virus >age 3 09:45:00 CDT CPT-93808 Venipuncture Draw Fee 07:59:02 CDT
--- OUTSIDE RECORDS SUMMARY | 2019-10-10 20:44 | XMS REPORT | Clinical Summary ---
Author Author Admin, Son Chan Organization [employer] Address Unknown Phone Unavailable Allergies, Adverse Reactions, [...] (or current) unspecified ALLERGIC RHINITIS 477.9 Active Nde Navarrete MD Allergic rhinitis, cause unspecified GERD [...] MD Abdominal pain, epigastric Dizziness 780.4 Active Nde Navarrete MD Dizziness and giddiness Gastroenteritis 558.9 [...] [address] for 3 days PREDNISONE 46438040598 No Longer Active Ned pérez MD Active CEPHALEXIN 500 MG ORAL CAPS CEPHALEXIN 53129272974 No Longer Active Ned Navarrete MD Active LATUDA 20 MG ORAL TABS LURASIDONE HCL 8450083 0230 Active Breanne Madl HEALTH SAFETY AND ENVIRONMENT MANAGER Active LORATADINE 10 MG TABS 1 tablet by mouth daily L ORATADINE 07196023477 No Longer Active Breanne Madl HEALTH SAFETY AND ENVIRONMENT MANAGER Active HYDROXYZINE HCL 25 MG TABS Take 1-2 tablets daily 2015 HYDROXYZINE HCL 35689608329 No Longer Active Breanne Madl HEALTH SAFETY AND ENVIRONMENT MANAGER Active ORTHO TRI-CYCLEN (28) 0.18/0.215/0.25 MG-35 MCG TABS 1 daily NORGESTIM-ETH ESTRAD TRIPHASIC 79191531996 No Longer Active Breanne Madl HEALTH SAFETY AND ENVIRONMENT MANAGER Active CLARITIN 10 MG TAB 1 tablet by mouth daily as needed for itchy r khari LORATADINE 96328939498 No Longer Active Ned Navarrete MD Active AUGMENTIN 875-125 MG TAB 1 po BID x 10 days with food AMOXICILLIN-POT CLAVULANATE 73526412054 No Longer Active Toni Washington DO Active ORTHO TRI-CYCLEN (28) 0.18/0.215/0.25 MG-35 MCG TABS 1 daily NORGESTIM-ETH ESTRAD TRIPHASIC 90594194110 No Longer Active Ned Navarrete MD Active ZOFRAN ODT 4 MG TBDP 1 po q6hr PRN Nausea ONDAN SETRON 64092908411 No Longer Active Ned Navarrete MD Active [facility] MEL[facility] 3 MG TABS Take 1 tablet at bedtime. 2013 MELATONIN 44014824841 No Longer Active Ned Navarrete MD Activ e BIOTIN 1000 MCG TABS Take 2 tablets daily BIOTI N 05149321292 No Longer Active Ned Navarrete MD Active OMEPRAZOLE 20 MG CPDR 1 tablet by mouth daily O MEPRAZOLE 90986948184 No Longer Active Mariana Moses APRN Active LATUDA 80 MG TABS 1 tablet daily LURASIDONE HCL 62965439523 No Longer Active Mariana Moses APRN Active ZOVIRAX 400 MG TABS Take 1 tablet every 8 hours as needed 2 ACYCLOVIR 82845465458 No Longer Active Ned Navarrete MD Activ e ZITHROMAX Z-CHACE 250 MG TABS 2 today, then 1 daily for 4 days 201 10/06/11 AZITHROMYCIN 38154357299 No Longer Active Ned Navarrete MD Active TOPAMAX 100 MG TABS 1 tablet daily TOPIRAMATE 54 584055778 No Longer Active Ned Navarrete MD Active AMOXICILLIN 500 MG CAPS 2 po BID x 10 days AMOX ICILLIN 80796777300 No Longer Active Saskia Simon MD PhD Active NAPROSYN 375 MG TAB 1 twice a day as needed for chest pain 04/01 NAPROXEN 77388518629 No Longer Active Saskia Simon MD PhD Active HYDROCORTISONE 2.5 % EXT CREA Apply three times a day to aff ected area HYDROCORTISONE 00805288246 No Longer Active Ned Navarrete MD Active TOPIRAMATE 50 MG TABS 1 QD TOPIRAMATE 03184919390 No Longer Active Ned Navarrete MD Active FANAPT 6 MG TABS 1 BID ILOPERIDONE 41242235901 No L onger Active Ned Navarrete MD Active CIPROFLOXACIN HCL 0.3 % SOLN 1 drop in right eye every 2 hours for 2 days, then 1 drop four times a day CIPROFLOXACIN HCL 47103013227 No Longer Active Ned Navarrete MD Active LORATADINE 10 MG TABS 1 tablet by mouth daily L ORATADINE 62408968712 No Longer Active Ned Navarrete MD Active RANITIDINE HCL 150 MG CAPS 1 twice a day RANITI DINE HCL 09312157104 No Longer Active Ned Navarrete MD Active RANITIDINE HCL 150 MG CAPS 1 twice a day RANITIDINE HCL 150 MG CAPS 160558 RANITIDINE HCL Inactive LORATADINE 10 MG TABS 1 tablet by mouth daily LORATADINE 10 MG TABS 399179 LORATADINE Inactive CIPROFLOXACIN HCL 0.3 % SOLN 1 drop in right eye every 2 hours for 2 days, then 1 drop four times a day CIPROFLOXACIN HCL 0.3 % SOLN 373138 CIPROFLOXACIN HCL Inactive FANAPT 6 MG TABS 1 BID FANAPT 6 MG TABS ILO PERIDONE Inactive TOPIRAMATE 50 MG TABS 1 QD TOPIRAMATE 50 MG TABS 1 42549 TOPIRAMATE Inactive HYDROCORTISONE 2.5 % EXT CREA Apply three times a day to aff ected area HYDROCORTISONE 2.5 % EXT CREA 766811 HYDROCORTIS ONE Inactive NAPROSYN 375 MG TAB 1 twice a day as needed for chest pain 04/01 NAPROSYN 375 MG TAB NAPROXEN Inactive TOPAMAX 100 MG TABS 1 tablet daily TOPAMAX 100 MG TABS 411839 TOPIRAMATE Inactive ZOVIRAX 400 MG TABS Take 1 tablet every 8 hours as needed 2 ZOVIRAX 400 MG TABS 754547 ACYCLOVIR Inactive LATUDA 80 MG TABS 1 tablet daily LATUDA 80 MG TA BS LURASIDONE HCL Inactive OMEPRAZOLE 20 MG CPDR 1 tablet by mouth daily OMEPRAZOLE 20 MG CPDR 387548 OMEPRAZOLE Inactive BIOTIN 1000 MCG TABS Take 2 tablets daily BIOTIN 1000 MCG TABS 509811 BIOTIN Inactive [facility] M[facility] 3 MG TABS Take 1 tablet at bedtime. 2013 [facility] M[facility] 3 MG TABS 601573 MELATONIN Inactive ZOFRAN ODT 4 MG TBDP 1 po q6hr PRN Nausea ZOFRAN ODT 4 MG TBDP 168074 ONDANSETRON Inactive ORTHO TRI-CYCLEN (28) 0.18/0.215/0.25 MG-35 MCG TABS 1 daily ORTHO TRI-CYCLEN (28) 0.18/0.215/0.25 MG-35 MCG TABS 380359 NORGESTIM-ETH ESTRAD TRIPHASIC Inactive CLARITIN 10 MG TAB 1 tablet by mouth daily as needed for itchy r khari CLARITIN 10 MG TAB 930712 LORATADINE Inactive ORTHO TRI-CYCLEN (28) 0.18/0.215/0.25 MG-35 MCG TABS 1 daily ORTHO TRI-CYCLEN (28) 0.18/0.215/0.25 MG-35 MCG TABS 319785 NORGESTIM-ETH ESTRAD TRIPHASIC Inactive HYDROXYZINE HCL 25 MG TABS Take 1-2 tablets daily 2015 HYDROXYZINE HCL 25 MG TABS 455295 HYDROXYZINE HCL Inactive LORATADINE 10 MG TABS 1 tablet by mouth daily LORATADINE 10 MG TABS 575814 LORATADINE Inactive CEPHALEXIN 500 MG ORAL CAPS CEPHALEX IN 500 MG ORAL CAPS 928235 CEPHALEXIN Inactive PREDNISONE 20 MG TABS Take 2 daily for 3 days and then 1 herman ly for 3 days PREDNISONE 20 MG TABS 100569 PREDNISONE Inacti ve AMOXICILLIN 500 MG CAPS 2 po BID x 10 days AMOXICILLIN 500 MG CAPS 051913 AMOXICILLIN Inactive ZITHROMAX Z-CHACE 250 MG TABS 2 today, then 1 daily for 4 days 201 10/06/11 ZITHROMAX Z-CHACE 250 MG TABS 5189659 AZITHROMYCIN Inac tive AUGMENTIN 875-125 MG TAB 1 po BID x 10 days with food AUGMENTIN 875-125 MG TAB 158501 AMOXICILLIN-POT CLAVULANATE Inactiv e Advance Directives Directive [...] 18 yo)) Fluzone preservative free (>3 yrs.) [[id number]] Influenza, seasonal, injectable, preservative free MPSV4 (meningococcal polysaccharide vaccination) Menactra meningococcal polysaccharide vaccine (MPSV4) hepatitis A immunization #1 Havrix-Pedi hepa titis A vaccine, unspecified formulation Adacel (Tetanus, reduced Diphtheria, and acellular Per tussis Immunization) Adacel [COK210] tetanus toxoid, reduced diph theria toxoid, and [...] 11 .0-15.0 platelet count 210 THOUSAND/UL 10*3/mm3 603-365 7527/11/02 mean platelet volume 10.3 fL 7.5-11.5 Lab [...] N Encounters Code Encounter Date Provider Facility CPT-29307 Level 3 Est. Patient 15:21:38 [employer] Rayna Pepper APRN [facility] CPT-63948 Level 3 Est. Patient 15:35:51 [employer] Ned Navarrete MD [facility] CPT-87423 Level 2 Est. Patient 12:43:40 CDT Ned Navarrete MD [facility] CPT-10568 Level 3 Est. Patient 14:38:48 CDT Toni duque DO [facility] CPT-37926 Level 3 Est. Patient 09:02:58 [employer] George paulson MD [facility] CPT-98221 Level 3 Est. Patient 17:42:32 CDT Ned Navarrete MD [facility] CPT-08414 Level 3 Est. Patient 11:04:31 [employer] Mariana Torrez APRN [facility] CPT-84936 Level 4 Est. Patient 12:27:05 [employer] Ned Navarrete MD [facility] CPT-41162 Level 3 Est. Patient 11:31:58 [employer] Ned Navarrete MD [facility] CPT-02762 Level 3 Est. Patient 16:49:32 CDT Ned Navarrete MD [facility] CPT-89321 Level 4 Est. Patient 14:11:59 [employer] Saskia green MD PhD [facility] CPT-92882 Level 3 Est. Patient 17:34:25 CDT Ned Navarrete MD [facility] CPT-45416 Level 3 Est. Patient 17:34:19 CDT Ned Navarrete MD [facility] CPT-30720 Level 3 Est. Patient 13:46:05 CDT Ned Navarrete MD [facility] CPT-80156 Level 3 Est. Patient 16:55:47 [employer] Ned Navarrete MD [facility] CPT-76689 Level 2 Est. Patient 17:33:08 [employer] Ned Navarrete MD [facility] CPT-80022 Level 3 Est. Patient 16:25:26 [employer] Ned Navarrete MD [facility] Procedures Code Procedure Name Date Entry Date Standard Desc ription CPT-77913 Visit 15:17:20 CDT CPT-19767 Visit 15:57:29 CDT CPT-29222 First Vx - Ix admin via ID I M or jet injects without counseling by physician 15:53:15 CDT CPT-67423 Boostrix Intramuscular Suspension 5-2.5-18.5 201 01/28/11 15:53:14 CDT CPT-29272 Tdap 7yrs or > 14:41:06 CDT CPT-41668 Visit 17:47:08 CDT CPT-41085 OBGTT 1 - LAB USE ONLY 10:15:57 CDT CPT-37381 Venipuncture Draw Fee 10:15:57 CDT CPT-00621 Visit 15:07:16 [employer] CPT-75043 Visit 16:49:41 [employer] CPT-04645 Sono OB limited - XRAY USE ONLY 16:38:01 CS T CPT-88099 Sono OB comp > 14 weeks - XRAY USE ONLY 17:00:59 [employer] CPT-66609 UA w micro - LAB USE ONLY 16:59:38 CDT 2015 CPT-14207 TSH - LAB USE ONLY 16:59:38 CDT CPT-99196 Venipuncture Draw Fee 16:59:38 CDT CPT-46805 Spec Collection and Handling Fee 14:01:24 C DT CPT-06677 Visit 14:01:24 CDT CPT-033 [facility] Screen 14:03:18 CDT CPT-033 [facility] Med Screen 11:04:57 CDT CPT-033 [facility] Med Screen 10:29:44 CDT CPT-50015 Administration 2+ single or combination vaccines inc oral 14:02:47 [employer] CPT-62915 Administration single or combination vac cine inc oral 14:02:47 [employer] CPT-79201 Hepatitis A ped/adol 2 dose schedule 14:02:47 [employer] CPT-29823 Gardasil 14:02:47 [employer] CPT-58525 Administration single or combination vac cine inc oral 11:40:38 [employer] CPT-12170 Gardasil 11:40:38 [employer] CPT-12884 Administration single or combination vac cine inc oral 09:45:00 CDT CPT-56869 Influenza Preservative Free split virus >age 3 09:45:00 CDT CPT-32741 Venipuncture Draw Fee 07:59:02 CDT
--- OUTSIDE RECORDS SUMMARY | 2019-10-10 20:44 | XMS REPORT | Clinical Summary ---
Author Author Admin, Son Chan Organization [email or web address] Address Unknown Phone Unavailable Allergies, Adverse Reactions, [...] LATUDA 20 MG ORAL TABS LURASIDONE HCL 8679857 0230 Active Breanne Madl WELFARE SUPERVISOR Active CEPHALEXIN 500 MG ORAL CAPS CEPHALEXIN 211708 59177 Active Breanne Madl WELFARE SUPERVISOR Active LORATADINE 10 MG TABS 1 tablet by mouth daily L ORATADINE 51148449528 No Longer Active Breanne Madl WELFARE SUPERVISOR Active HYDROXYZINE HCL 25 MG TABS Take 1-2 tablets daily 2015 HYDROXYZINE HCL 17475961948 No Longer Active Breanne Madl WELFARE SUPERVISOR Active ORTHO TRI-CYCLEN (28) 0.18/0.215/0.25 MG-35 MCG TABS 1 daily NORGESTIM-ETH ESTRAD TRIPHASIC 13958092897 No Longer Active Breanne Madl WELFARE SUPERVISOR Active CLARITIN 10 MG TAB 1 tablet by mouth daily as needed for itchy r khari LORATADINE 88670017369 No Longer Active Ned Navarrete MD Active AUGMENTIN 875-125 MG TAB 1 po BID x 10 days with food AMOXICILLIN-POT CLAVULANATE 97696537191 No Longer Active Toni Washington DO Active ORTHO TRI-CYCLEN (28) 0.18/0.215/0.25 MG-35 MCG TABS 1 daily NORGESTIM-ETH ESTRAD TRIPHASIC 74950570023 No Longer Active Ned Navarrete MD Active ZOFRAN ODT 4 MG TBDP 1 po q6hr PRN Nausea ONDAN SETRON 87174189761 No Longer Active Ned Navarrete MD Active [facility]EL[facility] 3 MG TABS Take 1 tablet at bedtime. 2013 MELATONIN 97460479648 No Longer Active Ned Navarrete MD Activ e BIOTIN 1000 MCG TABS Take 2 tablets daily BIOTI N 21171765531 No Longer Active Ned Navarrete MD Active OMEPRAZOLE 20 MG CPDR 1 tablet by mouth daily O MEPRAZOLE 18460122346 No Longer Active Mariana Moses APRN Active LATUDA 80 MG TABS 1 tablet daily LURASIDONE HCL 26393602679 No Longer Active Mariana Moses APRN Active ZOVIRAX 400 MG TABS Take 1 tablet every 8 hours as needed 2 ACYCLOVIR 38194967171 No Longer Active Ned Navarrete MD Activ e ZITHROMAX Z-CHACE 250 MG TABS 2 today, then 1 daily for 4 days 201 10/06/11 AZITHROMYCIN 76405987260 No Longer Active Ned Navarrete MD Active TOPAMAX 100 MG TABS 1 tablet daily TOPIRAMATE 54 935170702 No Longer Active eNd Navarrete MD Active AMOXICILLIN 500 MG CAPS 2 po BID x 10 days AMOX ICILLIN 14154988970 No Longer Active Saskia Simon MD PhD Active NAPROSYN 375 MG TAB 1 twice a day as needed for chest pain 04/01 NAPROXEN 16570119444 No Longer Active Saskia Simon MD PhD Active HYDROCORTISONE 2.5 % EXT CREA Apply three times a day to aff ected area HYDROCORTISONE 87081149737 No Longer Active Ned Navarrete MD Active TOPIRAMATE 50 MG TABS 1 QD TOPIRAMATE 59273774660 No Longer Active Ned Navarrete MD Active FANAPT 6 MG TABS 1 BID ILOPERIDONE 86862176978 No L onger Active Ned Navarrete MD Active CIPROFLOXACIN HCL 0.3 % SOLN 1 drop in right eye every 2 hours for 2 days, then 1 drop four times a day CIPROFLOXACIN HCL 81542269359 No Longer Active Ned Navarrete MD Active LORATADINE 10 MG TABS 1 tablet by mouth daily L ORATADINE 81933386580 No Longer Active Ned Navarrete MD Active RANITIDINE HCL 150 MG CAPS 1 twice a day RANITI DINE HCL 73263404455 No Longer Active Ned Navarrete MD Active RANITIDINE HCL 150 MG CAPS 1 twice a day RANITIDINE HCL 150 MG CAPS 240145 RANITIDINE HCL Inactive LORATADINE 10 MG TABS 1 tablet by mouth daily LORATADINE 10 MG TABS 173575 LORATADINE Inactive CIPROFLOXACIN HCL 0.3 % SOLN 1 drop in right eye every 2 hours for 2 days, then 1 drop four times a day CIPROFLOXACIN HCL 0.3 % SOLN 863813 CIPROFLOXACIN HCL Inactive FANAPT 6 MG TABS 1 BID FANAPT 6 MG TABS ILO PERIDONE Inactive TOPIRAMATE 50 MG TABS 1 QD TOPIRAMATE 50 MG TABS 1 65780 TOPIRAMATE Inactive HYDROCORTISONE 2.5 % EXT CREA Apply three times a day to aff ected area HYDROCORTISONE 2.5 % EXT CREA 023284 HYDROCORTIS ONE Inactive NAPROSYN 375 MG TAB 1 twice a day as needed for chest pain 04/01 NAPROSYN 375 MG TAB NAPROXEN Inactive TOPAMAX 100 MG TABS 1 tablet daily TOPAMAX 100 MG TABS 330139 TOPIRAMATE Inactive ZOVIRAX 400 MG TABS Take 1 tablet every 8 hours as needed ZOVIRAX 400 MG TABS 334739 ACYCLOVIR Inactive LATUDA 80 MG TABS 1 tablet daily LATUDA 80 MG TA BS LURASIDONE HCL Inactive OMEPRAZOLE 20 MG CPDR 1 tablet by mouth daily OMEPRAZOLE 20 MG CPDR 919189 OMEPRAZOLE Inactive BIOTIN 1000 MCG TABS Take 2 tablets daily BIOTIN 1000 MCG TABS 954373 BIOTIN Inactive [facility] 3 MG TABS Take 1 tablet at bedtime. 2013 [facility] M[facility] 3 MG TABS 490148 MELATONIN Inactive ZOFRAN ODT 4 MG TBDP 1 po q6hr PRN Nausea ZOFRAN ODT 4 MG TBDP 687151 ONDANSETRON Inactive ORTHO TRI-CYCLEN (28) 0.18/0.215/0.25 MG-35 MCG TABS 1 daily ORTHO TRI-CYCLEN (28) 0.18/0.215/0.25 MG-35 MCG TABS 626335 NORGESTIM-ETH ESTRAD TRIPHASIC Inactive CLARITIN 10 MG TAB 1 tablet by mouth daily as needed for itchy r khari CLARITIN 10 MG TAB 928896 LORATADINE Inactive ORTHO TRI-CYCLEN (28) 0.18/0.215/0.25 MG-35 MCG TABS 1 daily ORTHO TRI-CYCLEN (28) 0.18/0.215/0.25 MG-35 MCG TABS 683688 NORGESTIM-ETH ESTRAD TRIPHASIC Inactive HYDROXYZINE HCL 25 MG TABS Take 1-2 tablets daily 2015 HYDROXYZINE HCL 25 MG TABS 285780 HYDROXYZINE HCL Inactive LORATADINE 10 MG TABS 1 tablet by mouth daily LORATADINE 10 MG TABS 266888 LORATADINE Inactive AMOXICILLIN 500 MG CAPS 2 po BID x 10 days AMOXICILLIN 500 MG CAPS 704938 AMOXICILLIN Inactive ZITHROMAX Z-CHACE 250 MG TABS 2 today, then 1 daily for 4 days 201 10/06/11 ZITHROMAX Z-CHACE 250 MG TABS 6440927 AZITHROMYCIN Inac tive AUGMENTIN 875-125 MG TAB 1 po BID x 10 days with food AUGMENTIN 875-125 MG TAB 892357 AMOXICILLIN-POT CLAVULANATE Inactiv e Advance Directives Directive [...] 18 yo)) Fluzone preservative free (>3 yrs.) [[id number]] Influenza, seasonal, injectable, preservative free MPSV4 (meningococcal polysaccharide vaccination) Menactra meningococcal polysaccharide vaccine (MPSV4) hepatitis A immunization #1 Havrix-Pedi hepa titis A vaccine, unspecified formulation Adacel (Tetanus, reduced Diphtheria, and acellular Per tussis Immunization) Adacel [[id number]] tetanus toxoid, reduced diph theria toxoid, and [...] 11 .0-15.0 platelet count 210 THOUSAND/UL 10*3/mm3 432-729 9974/11/02 mean platelet volume 10.3 fL 7.5-11.5 Lab [...] ative Encounters Code Encounter Date Provider Facility CPT-11684 Level 2 Est. Patient 12:43:40 CDT Ned Navarrete MD [facility]-46855 Level 3 Est. Patient 14:38:48 CDT Toni duque DO [facility]-37690 Level 3 Est. Patient 09:02:58 GENERAL SALES MANAGER George paulson MD [facility]-40054 Level 3 Est. Patient 17:42:32 CDT Ned Navarrete MD [facility]-95881 Level 3 Est. Patient 11:04:31 GENERAL SALES MANAGER Mariana Torrez APRN [facility]-50119 Level 4 Est. Patient 12:27:05 GENERAL SALES MANAGER Ned Navarrete MD [facility]-05347 Level 3 Est. Patient 11:31:58 GENERAL SALES MANAGER Ned Navarrete MD [facility]-49033 Level 3 Est. Patient 16:49:32 CDT Ned Navarrete MD [facility]-28086 Level 4 Est. Patient 14:11:59 GENERAL SALES MANAGER Saskia green MD PhD [facility]-80909 Level 3 Est. Patient 17:34:25 CDT Ned Navarrete MD [facility]-92570 Level 3 Est. Patient 17:34:19 CDT Ned Navarrete MD [facility]-58695 Level 3 Est. Patient 13:46:05 CDT Ned Navarrete MD [facility]-62682 Level 3 Est. Patient 16:55:47 GENERAL SALES MANAGER Ned Navarrete MD [facility] CPT-37219 Level 2 Est. Patient 17:33:08 GENERAL SALES MANAGER Ned Navarrete MD [facility] CPT-70841 Level 3 Est. Patient 16:25:26 GENERAL SALES MANAGER Ned Navarrete MD [facility] Procedures Code Procedure Name Date Entry Date Standard Desc ription CPT-50940 UA w micro - LAB USE ONLY 16:59:38 CDT 2015 CPT-87098 TSH - LAB USE ONLY 16:59:38 CDT CPT-05151 Venipuncture Draw Fee 16:59:38 CDT CPT-36402 Spec Collection and Handling Fee 14:01:24 C DT CPT-67933 Visit 14:01:24 CDT CPT-033 KB Med Screen 14:03:18 CDT CPT-033 KB Med Screen 11:04:57 CDT CPT-033 KB Med Screen 10:29:44 CDT CPT-67141 Administration 2+ single or combination vaccines inc oral 14:02:47 GENERAL SALES MANAGER CPT-33024 Administration single or combination vac cine inc oral 14:02:47 GENERAL SALES MANAGER CPT-11861 Hepatitis A ped/adol 2 dose schedule 14:02:47 GENERAL SALES MANAGER CPT-30310 Gardasil 14:02:47 GENERAL SALES MANAGER CPT-00121 Administration single or combination vac cine inc oral 11:40:38 GENERAL SALES MANAGER CPT-41635 Gardasil 11:40:38 GENERAL SALES MANAGER CPT-34672 Administration single or combination vac cine inc oral 09:45:00 CDT CPT-67719 Influenza Preservative Free split virus >age 3 09:45:00 CDT CPT-35354 Venipuncture Draw Fee 07:59:02 CDT
--- OUTSIDE RECORDS SUMMARY | 2019-10-10 20:45 | XMS REPORT | Clinical Summary ---
Author Author Admin, Son Chan Organization [facility] Address Unknown Phone Unavailable Allergies, Adverse [...] LATUDA 20 MG ORAL TABS LURASIDONE HCL 1017817 0230 Active Breanne Madl CUSTODIAL SERVICES MANAGER Active CEPHALEXIN 500 MG ORAL CAPS CEPHALEXIN 005392 53161 Active Breanne Madl CUSTODIAL SERVICES MANAGER Active LORATADINE 10 MG TABS 1 tablet by mouth daily L ORATADINE 82550917301 No Longer Active Breanne Madl CUSTODIAL SERVICES MANAGER Active HYDROXYZINE HCL 25 MG TABS Take 1-2 tablets daily 2015 HYDROXYZINE HCL 92492696562 No Longer Active Breanne Madl CUSTODIAL SERVICES MANAGER Active ORTHO TRI-CYCLEN (28) 0.18/0.215/0.25 MG-35 MCG TABS 1 daily NORGESTIM-ETH ESTRAD TRIPHASIC 50584023607 No Longer Active Breanne Madl CUSTODIAL SERVICES MANAGER Active CLARITIN 10 MG TAB 1 tablet by mouth daily as needed for itchy r khari LORATADINE 18392122257 No Longer Active Ned Navarrete MD Active AUGMENTIN 875-125 MG TAB 1 po BID x 10 days with food AMOXICILLIN-POT CLAVULANATE 01353125503 No Longer Active Toni Washignton DO Active ORTHO TRI-CYCLEN (28) 0.18/0.215/0.25 MG-35 MCG TABS 1 daily NORGESTIM-ETH ESTRAD TRIPHASIC 92323461758 No Longer Active Ned Navarrete MD Active ZOFRAN ODT 4 MG TBDP 1 po q6hr PRN Nausea ONDAN SETRON 23357581692 No Longer Active Ned Navarrete MD Active [facility] MEL[facility] 3 MG TABS Take 1 tablet at bedtime. 2013 MELATONIN 69802785678 No Longer Active Ned Navarrete MD Activ e BIOTIN 1000 MCG TABS Take 2 tablets daily BIOTI N 46439138990 No Longer Active Ned Navarrete MD Active OMEPRAZOLE 20 MG CPDR 1 tablet by mouth daily O MEPRAZOLE 36142673611 No Longer Active Mariana Moses APRN Active LATUDA 80 MG TABS 1 tablet daily LURASIDONE HCL 44032662467 No Longer Active Mariana Moses APRN Active ZOVIRAX 400 MG TABS Take 1 tablet every 8 hours as needed 2 ACYCLOVIR 65829309189 No Longer Active Ned Navarrete MD Activ e ZITHROMAX Z-CHACE 250 MG TABS 2 today, then 1 daily for 4 days 201 10/06/11 AZITHROMYCIN 44136903265 No Longer Active Ned Navarrete MD Active TOPAMAX 100 MG TABS 1 tablet daily TOPIRAMATE 54 943560919 No Longer Active Ned Navarrete MD Active AMOXICILLIN 500 MG CAPS 2 po BID x 10 days AMOX ICILLIN 38358074626 No Longer Active Saskia Simon MD PhD Active NAPROSYN 375 MG TAB 1 twice a day as needed for chest pain 04/01 NAPROXEN 90428709832 No Longer Active Saskia Simon MD PhD Active HYDROCORTISONE 2.5 % EXT CREA Apply three times a day to aff ected area HYDROCORTISONE 50012713447 No Longer Active Ned Navarrete MD Active TOPIRAMATE 50 MG TABS 1 QD TOPIRAMATE 02021802873 No Longer Active Ned Navarrete MD Active FANAPT 6 MG TABS 1 BID ILOPERIDONE 91783910197 No L onger Active Ned Navarrete MD Active CIPROFLOXACIN HCL 0.3 % SOLN 1 drop in right eye every 2 hours for 2 days, then 1 drop four times a day CIPROFLOXACIN HCL 73389291927 No Longer Active Ned Navarrete MD Active LORATADINE 10 MG TABS 1 tablet by mouth daily L ORATADINE 87445386419 No Longer Active Ned Navarrete MD Active RANITIDINE HCL 150 MG CAPS 1 twice a day RANITI DINE HCL 44447164689 No Longer Active Ned Navarrete MD Active RANITIDINE HCL 150 MG CAPS 1 twice a day RANITIDINE HCL 150 MG CAPS 728977 RANITIDINE HCL Inactive LORATADINE 10 MG TABS 1 tablet by mouth daily LORATADINE 10 MG TABS 053058 LORATADINE Inactive CIPROFLOXACIN HCL 0.3 % SOLN 1 drop in right eye every 2 hours for 2 days, then 1 drop four times a day CIPROFLOXACIN HCL 0.3 % SOLN 818820 CIPROFLOXACIN HCL Inactive FANAPT 6 MG TABS 1 BID FANAPT 6 MG TABS ILO PERIDONE Inactive TOPIRAMATE 50 MG TABS 1 QD TOPIRAMATE 50 MG TABS 1 34249 TOPIRAMATE Inactive HYDROCORTISONE 2.5 % EXT CREA Apply three times a day to aff ected area HYDROCORTISONE 2.5 % EXT CREA 744841 HYDROCORTIS ONE Inactive NAPROSYN 375 MG TAB 1 twice a day as needed for chest pain 04/01 NAPROSYN 375 MG TAB NAPROXEN Inactive TOPAMAX 100 MG TABS 1 tablet daily TOPAMAX 100 MG TABS 684574 TOPIRAMATE Inactive ZOVIRAX 400 MG TABS Take 1 tablet every 8 hours as needed ZOVIRAX 400 MG TABS 353575 ACYCLOVIR Inactive LATUDA 80 MG TABS 1 tablet daily LATUDA 80 MG TA BS LURASIDONE HCL Inactive OMEPRAZOLE 20 MG CPDR 1 tablet by mouth daily OMEPRAZOLE 20 MG CPDR 551896 OMEPRAZOLE Inactive BIOTIN 1000 MCG TABS Take 2 tablets daily BIOTIN 1000 MCG TABS 257956 BIOTIN Inactive [facility] 3 MG TABS Take 1 tablet at bedtime. 2013 [facility] M[facility] 3 MG TABS 366396 MELATONIN Inactive ZOFRAN ODT 4 MG TBDP 1 po q6hr PRN Nausea ZOFRAN ODT 4 MG TBDP 603613 ONDANSETRON Inactive ORTHO TRI-CYCLEN (28) 0.18/0.215/0.25 MG-35 MCG TABS 1 daily ORTHO TRI-CYCLEN (28) 0.18/0.215/0.25 MG-35 MCG TABS 817950 NORGESTIM-ETH ESTRAD TRIPHASIC Inactive CLARITIN 10 MG TAB 1 tablet by mouth daily as needed for itchy r khari CLARITIN 10 MG TAB 397314 LORATADINE Inactive ORTHO TRI-CYCLEN (28) 0.18/0.215/0.25 MG-35 MCG TABS 1 daily ORTHO TRI-CYCLEN (28) 0.18/0.215/0.25 MG-35 MCG TABS 174514 NORGESTIM-ETH ESTRAD TRIPHASIC Inactive HYDROXYZINE HCL 25 MG TABS Take 1-2 tablets daily 2015 HYDROXYZINE HCL 25 MG TABS 916740 HYDROXYZINE HCL Inactive LORATADINE 10 MG TABS 1 tablet by mouth daily LORATADINE 10 MG TABS 123721 LORATADINE Inactive AMOXICILLIN 500 MG CAPS 2 po BID x 10 days AMOXICILLIN 500 MG CAPS 971264 AMOXICILLIN Inactive ZITHROMAX Z-CHACE 250 MG TABS 2 today, then 1 daily for 4 days 201 10/06/11 ZITHROMAX Z-CHACE 250 MG TABS 4920450 AZITHROMYCIN Inac tive AUGMENTIN 875-125 MG TAB 1 po BID x 10 days with food AUGMENTIN 875-125 MG TAB 445554 AMOXICILLIN-POT CLAVULANATE Inactiv e Advance Directives Directive [...] 16 yo)) Fluzone preservative free (>3 yrs.) [[id number]] Influenza, seasonal, injectable, preservative free MPSV4 (meningococcal polysaccharide vaccination) Menactra meningococcal polysaccharide vaccine (MPSV4) hepatitis A immunization #1 Havrix-Pedi hepa titis A vaccine, unspecified formulation Adacel (Tetanus, reduced Diphtheria, and acellular Per tussis Immunization) Adacel [[id number]] tetanus toxoid, reduced diph theria toxoid, and [...] 11 .0-15.0 platelet count 210 THOUSAND/UL 10*3/mm3 227-088 4039/11/02 mean platelet volume 10.3 fL 7.5-11.5 Lab [...] ative Encounters Code Encounter Date Provider Facility CPT-52406 Level 2 Est. Patient 12:43:40 CDT Ned Navarrete MD [facility]-92493 Level 3 Est. Patient 14:38:48 CDT Toni duque DO [facility] CPT-00549 Level 3 Est. Patient 09:02:58 TAVERN CAR ATTENDANT George paulson MD [facility]-11536 Level 3 Est. Patient 17:42:32 CDT Ned Navarrete MD [facility]-44598 Level 3 Est. Patient 11:04:31 TAVERN CAR ATTENDANT Mariana Torrez APRN [facility] CPT-25139 Level 4 Est. Patient 12:27:05 TAVERN CAR ATTENDANT Ned Navarrete MD [facility] CPT-06769 Level 3 Est. Patient 11:31:58 TAVERN CAR ATTENDANT Ned Navarrete MD [facility] CPT-53824 Level 3 Est. Patient 16:49:32 CDT Ned Navarrete MD [facility] CPT-62669 Level 4 Est. Patient 14:11:59 TAVERN CAR ATTENDANT Saskia green MD PhD [facility] CPT-20557 Level 3 Est. Patient 17:34:25 CDT Ned Navarrete MD [facility]-47421 Level 3 Est. Patient 17:34:19 CDT Ned Navarrete MD [facility]-03056 Level 3 Est. Patient 13:46:05 CDT Ned Navarrete MD [facility]-31505 Level 3 Est. Patient 16:55:47 TAVERN CAR ATTENDANT Ned Navarrete MD [facility] CPT-65099 Level 2 Est. Patient 17:33:08 TAVERN CAR ATTENDANT Ned Navarrete MD [facility] CPT-87529 Level 3 Est. Patient 16:25:26 TAVERN CAR ATTENDANT Ned Navarrete MD [facility] Procedures Code Procedure Name Date Entry Date Standard Desc ription CPT-41123 UA w micro - LAB USE ONLY 16:59:38 CDT 2015 CPT-31864 TSH - LAB USE ONLY 16:59:38 CDT CPT-54948 Venipuncture Draw Fee 16:59:38 CDT CPT-86916 Spec Collection and Handling Fee 14:01:24 C DT CPT-94187 Visit 14:01:24 CDT CPT-033 KB Med Screen 14:03:18 CDT CPT-033 KB Med Screen 11:04:57 CDT CPT-033 KB Med Screen 10:29:44 CDT CPT-43528 Administration 2+ single or combination vaccines inc oral 14:02:47 TAVERN CAR ATTENDANT CPT-63756 Administration single or combination vac cine inc oral 14:02:47 TAVERN CAR ATTENDANT CPT-54678 Hepatitis A ped/adol 2 dose schedule 14:02:47 TAVERN CAR ATTENDANT CPT-91636 Gardasil 14:02:47 TAVERN CAR ATTENDANT CPT-99674 Administration single or combination vac cine inc oral 11:40:38 TAVERN CAR ATTENDANT CPT-77131 Gardasil 11:40:38 TAVERN CAR ATTENDANT CPT-89750 Administration single or combination vac cine inc oral 09:45:00 CDT CPT-50602 Influenza Preservative Free split virus >age 3 09:45:00 CDT CPT-04185 Venipuncture Draw Fee 07:59:02 CDT
--- OUTSIDE RECORDS SUMMARY | 2019-10-10 20:45 | XMS REPORT | Clinical Summary ---
Author Author Admin, Son Chan Organization [employer] Address Unknown Phone Unavailable Allergies, Adverse Reactions, [...] gastroenteritis and colitis Folliculitis 704.8 Active Toni Wasihngton DO Other specified diseases of hair and [...] LATUDA 20 MG ORAL TABS LURASIDONE HCL 6324815 0230 Active Breanne Madl ACCOUNTING LECTURER Active CEPHALEXIN 500 MG ORAL CAPS CEPHALEXIN 210188 73235 Active Breanne Madl ACCOUNTING LECTURER Active LORATADINE 10 MG TABS 1 tablet by mouth daily L ORATADINE 56669306601 No Longer Active Breanne Madl ACCOUNTING LECTURER Active HYDROXYZINE HCL 25 MG TABS Take 1-2 tablets daily 2015 HYDROXYZINE HCL 01646387296 No Longer Active Breanne Madl ACCOUNTING LECTURER Active ORTHO TRI-CYCLEN (28) 0.18/0.215/0.25 MG-35 MCG TABS 1 daily NORGESTIM-ETH ESTRAD TRIPHASIC 66691900453 No Longer Active Breanne Madl ACCOUNTING LECTURER Active CLARITIN 10 MG TAB 1 tablet by mouth daily as needed for itchy r khari LORATADINE 80143410503 No Longer Active Ned Navarrete MD Active AUGMENTIN 875-125 MG TAB 1 po BID x 10 days with food AMOXICILLIN-POT CLAVULANATE 09080026445 No Longer Active Toni Washington DO Active ORTHO TRI-CYCLEN (28) 0.18/0.215/0.25 MG-35 MCG TABS 1 daily NORGESTIM-ETH ESTRAD TRIPHASIC 96177579753 No Longer Active Ned Navarrete MD Active ZOFRAN ODT 4 MG TBDP 1 po q6hr PRN Nausea ONDAN SETRON 59864193471 No Longer Active Ned Navarrete MD Active [facility] MEL[facility] 3 MG TABS Take 1 tablet at bedtime. 2013 MELATONIN 86504891652 No Longer Active Ned Navarrete MD Activ e BIOTIN 1000 MCG TABS Take 2 tablets daily BIOTI N 30131625043 No Longer Active Ned Navarrete MD Active OMEPRAZOLE 20 MG CPDR 1 tablet by mouth daily O MEPRAZOLE 83431328687 No Longer Active Mariana Moses APRN Active LATUDA 80 MG TABS 1 tablet daily LURASIDONE HCL 36196346652 No Longer Active Mariana Moses APRN Active ZOVIRAX 400 MG TABS Take 1 tablet every 8 hours as needed 2 ACYCLOVIR 47180389422 No Longer Active Ned Navarrete MD Activ e ZITHROMAX Z-CHACE 250 MG TABS 2 today, then 1 daily for 4 days 201 10/06/11 AZITHROMYCIN 42557822242 No Longer Active Ned Navarrete MD Active TOPAMAX 100 MG TABS 1 tablet daily TOPIRAMATE 54 281585566 No Longer Active Ned Navarrete MD Active AMOXICILLIN 500 MG CAPS 2 po BID x 10 days AMOX ICILLIN 71684218431 No Longer Active Saskia Simon MD PhD Active NAPROSYN 375 MG TAB 1 twice a day as needed for chest pain 04/01 NAPROXEN 25496292708 No Longer Active Saskia Simon MD PhD Active HYDROCORTISONE 2.5 % EXT CREA Apply three times a day to aff ected area HYDROCORTISONE 14375082700 No Longer Active Ned Navarrete MD Active TOPIRAMATE 50 MG TABS 1 QD TOPIRAMATE 84387742569 No Longer Active Ned Navarrete MD Active FANAPT 6 MG TABS 1 BID ILOPERIDONE 56161878665 No L onger Active Ned Navarrete MD Active CIPROFLOXACIN HCL 0.3 % SOLN 1 drop in right eye every 2 hours for 2 days, then 1 drop four times a day CIPROFLOXACIN HCL 73002563382 No Longer Active Ned Navarrete MD Active LORATADINE 10 MG TABS 1 tablet by mouth daily L ORATADINE 79088947614 No Longer Active Ned Navarrete MD Active RANITIDINE HCL 150 MG CAPS 1 twice a day RANITI DINE HCL 92471296094 No Longer Active Ned Navarrete MD Active RANITIDINE HCL 150 MG CAPS 1 twice a day RANITIDINE HCL 150 MG CAPS 732968 RANITIDINE HCL Inactive LORATADINE 10 MG TABS 1 tablet by mouth daily LORATADINE 10 MG TABS 244918 LORATADINE Inactive CIPROFLOXACIN HCL 0.3 % SOLN 1 drop in right eye every 2 hours for 2 days, then 1 drop four times a day CIPROFLOXACIN HCL 0.3 % SOLN 979701 CIPROFLOXACIN HCL Inactive FANAPT 6 MG TABS 1 BID FANAPT 6 MG TABS ILO PERIDONE Inactive TOPIRAMATE 50 MG TABS 1 QD TOPIRAMATE 50 MG TABS 1 52505 TOPIRAMATE Inactive HYDROCORTISONE 2.5 % EXT CREA Apply three times a day to aff ected area HYDROCORTISONE 2.5 % EXT CREA 503549 HYDROCORTIS ONE Inactive NAPROSYN 375 MG TAB 1 twice a day as needed for chest pain 04/01 NAPROSYN 375 MG TAB NAPROXEN Inactive TOPAMAX 100 MG TABS 1 tablet daily TOPAMAX 100 MG TABS 973151 TOPIRAMATE Inactive ZOVIRAX 400 MG TABS Take 1 tablet every 8 hours as needed 2 ZOVIRAX 400 MG TABS 620094 ACYCLOVIR Inactive LATUDA 80 MG TABS 1 tablet daily LATUDA 80 MG TA BS LURASIDONE HCL Inactive OMEPRAZOLE 20 MG CPDR 1 tablet by mouth daily OMEPRAZOLE 20 MG CPDR 115013 OMEPRAZOLE Inactive BIOTIN 1000 MCG TABS Take 2 tablets daily BIOTIN 1000 MCG TABS 885837 BIOTIN Inactive [facility] M[facility] 3 MG TABS Take 1 tablet at bedtime. 2013 [facility] MEL[facility] 3 MG TABS 369259 MELATONIN Inactive ZOFRAN ODT 4 MG TBDP 1 po q6hr PRN Nausea ZOFRAN ODT 4 MG TBDP 808482 ONDANSETRON Inactive ORTHO TRI-CYCLEN (28) 0.18/0.215/0.25 MG-35 MCG TABS 1 daily ORTHO TRI-CYCLEN (28) 0.18/0.215/0.25 MG-35 MCG TABS 157334 NORGESTIM-ETH ESTRAD TRIPHASIC Inactive CLARITIN 10 MG TAB 1 tablet by mouth daily as needed for itchy r khari CLARITIN 10 MG TAB 465872 LORATADINE Inactive ORTHO TRI-CYCLEN (28) 0.18/0.215/0.25 MG-35 MCG TABS 1 daily ORTHO TRI-CYCLEN (28) 0.18/0.215/0.25 MG-35 MCG TABS 102859 NORGESTIM-ETH ESTRAD TRIPHASIC Inactive HYDROXYZINE HCL 25 MG TABS Take 1-2 tablets daily 2015 HYDROXYZINE HCL 25 MG TABS 772622 HYDROXYZINE HCL Inactive LORATADINE 10 MG TABS 1 tablet by mouth daily LORATADINE 10 MG TABS 380241 LORATADINE Inactive AMOXICILLIN 500 MG CAPS 2 po BID x 10 days AMOXICILLIN 500 MG CAPS 139775 AMOXICILLIN Inactive ZITHROMAX Z-CHACE 250 MG TABS 2 today, then 1 daily for 4 days 201 10/06/11 ZITHROMAX Z-CHACE 250 MG TABS 3081223 AZITHROMYCIN Inac tive AUGMENTIN 875-125 MG TAB 1 po BID x 10 days with food AUGMENTIN 875-125 MG TAB 477991 AMOXICILLIN-POT CLAVULANATE Inactiv e Advance Directives Directive [...] 18 yo)) Fluzone preservative free (>3 yrs.) [[id number]] Influenza, seasonal, injectable, preservative free MPSV4 (meningococcal polysaccharide vaccination) Menactra meningococcal polysaccharide vaccine (MPSV4) hepatitis A immunization #1 Havrix-Pedi hepa titis A vaccine, unspecified formulation Adacel (Tetanus, reduced Diphtheria, and acellular Per tussis Immunization) Adacel [[id number]] tetanus toxoid, reduced diph theria toxoid, and [...] 11 .0-15.0 platelet count 210 THOUSAND/UL 10*3/mm3 135-479 0911/11/02 mean platelet volume 10.3 fL 7.5-11.5 Lab [...] ative Encounters Code Encounter Date Provider Facility CPT-26332 Level 2 Est. Patient 12:43:40 CDT Ned Navarrete MD [facility] CPT-42891 Level 3 Est. Patient 14:38:48 CDT Toni duque DO [facility] CPT-62295 Level 3 Est. Patient 09:02:58 DRAW HAND George paulson MD [facility] CPT-61307 Level 3 Est. Patient 17:42:32 CDT Ned Navarrete MD [facility] CPT-42187 Level 3 Est. Patient 11:04:31 DRAW HAND Mariana Torrez APRN [facility] CPT-69937 Level 4 Est. Patient 12:27:05 DRAW HAND Ned Navarrete MD [facility] CPT-26497 Level 3 Est. Patient 11:31:58 DRAW HAND Ned Navarrete MD [facility] CPT-42161 Level 3 Est. Patient 16:49:32 CDT Ned Navarrete MD [facility] CPT-08597 Level 4 Est. Patient 14:11:59 DRAW HAND Saskia green MD PhD [facility] CPT-82174 Level 3 Est. Patient 17:34:25 CDT Ned Navarrete MD [facility] CPT-13196 Level 3 Est. Patient 17:34:19 CDT Ned Navarrete MD [facility] CPT-60592 Level 3 Est. Patient 13:46:05 CDT Ned Navarrete MD [facility] CPT-26516 Level 3 Est. Patient 16:55:47 DRAW HAND Ned Navarrete MD [facility] CPT-88989 Level 2 Est. Patient 17:33:08 DRAW HAND Ned Navarrete MD [facility] CPT-90984 Level 3 Est. Patient 16:25:26 DRAW HAND Ned Navarrete MD [facility] Procedures Code Procedure Name Date Entry Date Standard Desc ription CPT-23860 Visit 16:49:41 DRAW HAND CPT-26638 Sono OB limited - XRAY USE ONLY 16:38:01 CS T CPT-38395 Sono OB comp > 14 weeks - XRAY USE ONLY 17:00:59 DRAW HAND CPT-92392 UA w micro - LAB USE ONLY 16:59:38 CDT 2015 CPT-58138 TSH - LAB USE ONLY 16:59:38 CDT CPT-25257 Venipuncture Draw Fee 16:59:38 CDT CPT-13719 Spec Collection and Handling Fee 14:01:24 C DT CPT-63832 Visit 14:01:24 CDT CPT-033 [facility] Med Screen 14:03:18 CDT CPT-033 [facility] Med Screen 11:04:57 CDT CPT-033 [facility] Med Screen 10:29:44 CDT CPT-50296 Administration 2+ single or combination vaccines inc oral 14:02:47 DRAW HAND CPT-72323 Administration single or combination vac cine inc oral 14:02:47 DRAW HAND CPT-50205 Hepatitis A ped/adol 2 dose schedule 14:02:47 DRAW HAND CPT-01577 Gardasil 14:02:47 DRAW HAND CPT-64264 Administration single or combination vac cine inc oral 11:40:38 DRAW HAND CPT-54058 Gardasil 11:40:38 DRAW HAND CPT-09454 Administration single or combination vac cine inc oral 09:45:00 CDT CPT-48523 Influenza Preservative Free split virus >age 3 09:45:00 CDT CPT-48136 Venipuncture Draw Fee 07:59:02 CDT
--- OUTSIDE RECORDS SUMMARY | 2019-10-10 20:45 | XMS REPORT | Clinical Summary ---
Author Author Admin, Son Chan Organization [employer] Address Unknown Phone Unavailable Allergies, Adverse Reactions, [...] herpes, unspecified Pharyngitis, acute 462 Resolved Ned manlye MD Acute pharyngitis Epigastric pain 789.06 Active [...] 1 herman ly for 3 days PREDNISONE 38685233432 No Longer Active Ned pérez MD Active CEPHALEXIN 500 MG ORAL CAPS CEPHALEXIN 59766159744 No Longer Active Ned Navarrete MD Active LATUDA 20 MG ORAL TABS LURASIDONE HCL 2216755 0230 Active Breanne Madl TAPE EDITOR Active LORATADINE 10 MG TABS 1 tablet by mouth daily L ORATADINE 10993862697 No Longer Active Breanne Madl TAPE EDITOR Active HYDROXYZINE HCL 25 MG TABS Take 1-2 tablets daily 2015 HYDROXYZINE HCL 62854337460 No Longer Active Breanne Madl TAPE EDITOR Active ORTHO TRI-CYCLEN (28) 0.18/0.215/0.25 MG-35 MCG TABS 1 daily NORGESTIM-ETH ESTRAD TRIPHASIC 76262902653 No Longer Active Breanne Madl TAPE EDITOR Active CLARITIN 10 MG TAB 1 tablet by mouth daily as needed for itchy r khari LORATADINE 71419883875 No Longer Active Ned Navarrete MD Active AUGMENTIN 875-125 MG TAB 1 po BID x 10 days with food AMOXICILLIN-POT CLAVULANATE 60028717425 No Longer Active Toni Washington DO Active ORTHO TRI-CYCLEN (28) 0.18/0.215/0.25 MG-35 MCG TABS 1 daily NORGESTIM-ETH ESTRAD TRIPHASIC 75098843751 No Longer Active Ned Navarrete MD Active ZOFRAN ODT 4 MG TBDP 1 po q6hr PRN Nausea ONDAN SETRON 60412173085 No Longer Active Ned Navarrete MD Active [facility] MEL[facility] 3 MG TABS Take 1 tablet at bedtime. 2013 MELATONIN 82851217158 No Longer Active Ned Navarrete MD Activ e BIOTIN 1000 MCG TABS Take 2 tablets daily BIOTI N 13641839975 No Longer Active Ned Navarrete MD Active OMEPRAZOLE 20 MG CPDR 1 tablet by mouth daily O MEPRAZOLE 80693810619 No Longer Active Mariana Moses APRN Active LATUDA 80 MG TABS 1 tablet daily LURASIDONE HCL 44270953555 No Longer Active Mariana Moses APRN Active ZOVIRAX 400 MG TABS Take 1 tablet every 8 hours as needed 2 ACYCLOVIR 94539128072 No Longer Active Ned Navarrete MD Activ e ZITHROMAX Z-CHACE 250 MG TABS 2 today, then 1 daily for 4 days 201 10/06/11 AZITHROMYCIN 75891233522 No Longer Active Ned Navarrete MD Active TOPAMAX 100 MG TABS 1 tablet daily TOPIRAMATE 54 507682600 No Longer Active Ned Navarrete MD Active AMOXICILLIN 500 MG CAPS 2 po BID x 10 days AMOX ICILLIN 39046414925 No Longer Active Saskia Simon MD PhD Active NAPROSYN 375 MG TAB 1 twice a day as needed for chest pain 04/01 NAPROXEN 25669117295 No Longer Active Saskia Simon MD PhD Active HYDROCORTISONE 2.5 % EXT CREA Apply three times a day to aff ected area HYDROCORTISONE 63005592214 No Longer Active Ned Navarrete MD Active TOPIRAMATE 50 MG TABS 1 QD TOPIRAMATE 13520425079 No Longer Active Ned Navarrete MD Active FANAPT 6 MG TABS 1 BID ILOPERIDONE 88675253004 No L onger Active Ned Navarrete MD Active CIPROFLOXACIN HCL 0.3 % SOLN 1 drop in right eye every 2 hours for 2 days, then 1 drop four times a day CIPROFLOXACIN HCL 99537023655 No Longer Active Ned Navarrete MD Active LORATADINE 10 MG TABS 1 tablet by mouth daily L ORATADINE 36749830348 No Longer Active Ned Navarrete MD Active RANITIDINE HCL 150 MG CAPS 1 twice a day RANITI DINE HCL 39870574873 No Longer Active Ned Navarrete MD Active RANITIDINE HCL 150 MG CAPS 1 twice a day RANITIDINE HCL 150 MG CAPS 220569 RANITIDINE HCL Inactive LORATADINE 10 MG TABS 1 tablet by mouth daily LORATADINE 10 MG TABS 081993 LORATADINE Inactive CIPROFLOXACIN HCL 0.3 % SOLN 1 drop in right eye every 2 hours for 2 days, then 1 drop four times a day CIPROFLOXACIN HCL 0.3 % SOLN 321251 CIPROFLOXACIN HCL Inactive FANAPT 6 MG TABS 1 BID FANAPT 6 MG TABS ILO PERIDONE Inactive TOPIRAMATE 50 MG TABS 1 QD TOPIRAMATE 50 MG TABS 1 38034 TOPIRAMATE Inactive HYDROCORTISONE 2.5 % EXT CREA Apply three times a day to aff ected area HYDROCORTISONE 2.5 % EXT CREA 867727 HYDROCORTIS ONE Inactive NAPROSYN 375 MG TAB 1 twice a day as needed for chest pain 04/01 NAPROSYN 375 MG TAB NAPROXEN Inactive TOPAMAX 100 MG TABS 1 tablet daily TOPAMAX 100 MG TABS 366089 TOPIRAMATE Inactive ZOVIRAX 400 MG TABS Take 1 tablet every 8 hours as needed 2 ZOVIRAX 400 MG TABS 845145 ACYCLOVIR Inactive LATUDA 80 MG TABS 1 tablet daily LATUDA 80 MG TA BS LURASIDONE HCL Inactive OMEPRAZOLE 20 MG CPDR 1 tablet by mouth daily OMEPRAZOLE 20 MG CPDR 503575 OMEPRAZOLE Inactive BIOTIN 1000 MCG TABS Take 2 tablets daily BIOTIN 1000 MCG TABS 032884 BIOTIN Inactive [facility] 3 MG TABS Take 1 tablet at bedtime. 2013 [facility] 3 MG TABS 051024 MELATONIN Inactive ZOFRAN ODT 4 MG TBDP 1 po q6hr PRN Nausea ZOFRAN ODT 4 MG TBDP 297977 ONDANSETRON Inactive ORTHO TRI-CYCLEN (28) 0.18/0.215/0.25 MG-35 MCG TABS 1 daily ORTHO TRI-CYCLEN (28) 0.18/0.215/0.25 MG-35 MCG TABS 094460 NORGESTIM-ETH ESTRAD TRIPHASIC Inactive CLARITIN 10 MG TAB 1 tablet by mouth daily as needed for itchy r khari CLARITIN 10 MG TAB 609683 LORATADINE Inactive ORTHO TRI-CYCLEN (28) 0.18/0.215/0.25 MG-35 MCG TABS 1 daily ORTHO TRI-CYCLEN (28) 0.18/0.215/0.25 MG-35 MCG TABS 205516 NORGESTIM-ETH ESTRAD TRIPHASIC Inactive HYDROXYZINE HCL 25 MG TABS Take 1-2 tablets daily 2015 HYDROXYZINE HCL 25 MG TABS 471254 HYDROXYZINE HCL Inactive LORATADINE 10 MG TABS 1 tablet by mouth daily LORATADINE 10 MG TABS 087604 LORATADINE Inactive CEPHALEXIN 500 MG ORAL CAPS CEPHALEX IN 500 MG ORAL CAPS 719918 CEPHALEXIN Inactive PREDNISONE 20 MG TABS Take 2 daily for 3 days and then 1 herman ly for 3 days PREDNISONE 20 MG TABS 288423 PREDNISONE Inacti ve AMOXICILLIN 500 MG CAPS 2 po BID x 10 days AMOXICILLIN 500 MG CAPS 709023 AMOXICILLIN Inactive ZITHROMAX Z-CHACE 250 MG TABS 2 today, then 1 daily for 4 days 201 10/06/11 ZITHROMAX Z-CHACE 250 MG TABS 3226757 AZITHROMYCIN Inac tive AUGMENTIN 875-125 MG TAB 1 po BID x 10 days with food AUGMENTIN 875-125 MG TAB 317634 AMOXICILLIN-POT CLAVULANATE Inactiv e Advance Directives Directive [...] 18 yo)) Fluzone preservative free (>3 yrs.) [[id number]] Influenza, seasonal, injectable, preservative free MPSV4 (meningococcal polysaccharide vaccination) Menactra meningococcal polysaccharide vaccine (MPSV4) hepatitis A immunization #1 Havrix-Pedi hepa titis A vaccine, unspecified formulation Adacel (Tetanus, reduced Diphtheria, and acellular Per tussis Immunization) Adacel [[id number]] tetanus toxoid, reduced diph theria toxoid, and [...] 11 .0-15.0 platelet count 210 THOUSAND/UL 10*3/mm3 734-933 9471/11/02 mean platelet volume 10.3 fL 7.5-11.5 Lab [...] N Encounters Code Encounter Date Provider Facility CPT-25612 Level 3 Est. Patient 15:21:38 OLIVIA Pepper [facility] CPT-45914 Level 3 Est. Patient 15:35:51 TAB CUTTER Ned Navarrete MD [facility]-25486 Level 2 Est. Patient 12:43:40 CDT Ned Navarrete MD [facility]-74046 Level 3 Est. Patient 14:38:48 CDT Toni duque DO [facility] CPT-15675 Level 3 Est. Patient 09:02:58 TAB CUTTER George paulson MD [facility] CPT-72450 Level 3 Est. Patient 17:42:32 CDT Ned Navarrete MD [facility]-72426 Level 3 Est. Patient 11:04:31 TAB CUTTER Mariana Torrez [facility] CPT-37115 Level 4 Est. Patient 12:27:05 TAB CUTTER Ned Navarrete MD [facility]-22904 Level 3 Est. Patient 11:31:58 TAB CUTTER Ned Navarrete MD [facility] CPT-76095 Level 3 Est. Patient 16:49:32 CDT Ned Navarrete MD [facility]-20424 Level 4 Est. Patient 14:11:59 TAB CUTTER Saskia green MD PhD [facility] CPT-37114 Level 3 Est. Patient 17:34:25 CDT Ned Navarrete MD [facility] CPT-33090 Level 3 Est. Patient 17:34:19 CDT Ned Navarrete MD [facility] CPT-27697 Level 3 Est. Patient 13:46:05 CDT Ned Navarrete MD [facility]-54400 Level 3 Est. Patient 16:55:47 TAB CUTTER Ned Navarrete MD [facility]-59311 Level 2 Est. Patient 17:33:08 TAB CUTTER Ned Navarrete MD [facility]-53740 Level 3 Est. Patient 16:25:26 TAB CUTTER Ned Navarrete MD [facility] Procedures Code Procedure Name Date Entry Date Standard Desc ription CPT-66184 Visit 14:52:59 CDT CPT-14589 Visit 15:17:20 CDT CPT-73333 Visit 15:57:29 CDT CPT-63898 First Vx - Ix admin via ID I M or jet injects without counseling by physician 15:53:15 CDT CPT-58097 Boostrix Intramuscular Suspension 5-2.5-18.5 201 01/28/11 15:53:14 CDT CPT-38915 Tdap 7yrs or > 14:41:06 CDT CPT-51732 Visit 17:47:08 CDT CPT-67870 OBGTT 1 - LAB USE ONLY 10:15:57 CDT CPT-72457 Venipuncture Draw Fee 10:15:57 CDT CPT-14476 Visit 15:07:16 TAB CUTTER CPT-59544 Visit 16:49:41 TAB CUTTER CPT-18748 Sono OB limited - XRAY USE ONLY 16:38:01 CS T CPT-50565 Sono OB comp > 14 weeks - XRAY USE ONLY 17:00:59 TAB CUTTER CPT-10019 UA w micro - LAB USE ONLY 16:59:38 CDT 2015 CPT-05936 TSH - LAB USE ONLY 16:59:38 CDT CPT-05472 Venipuncture Draw Fee 16:59:38 CDT CPT-46864 Spec Collection and Handling Fee 14:01:24 C DT CPT-19821 Visit 14:01:24 CDT CPT-033 [facility] Med Screen 14:03:18 CDT CPT-033 [facility] Med Screen 11:04:57 CDT CPT-033 [facility] Med Screen 10:29:44 CDT CPT-72012 Administration 2+ single or combination vaccines inc oral 14:02:47 TAB CUTTER CPT-71216 Administration single or combination vac cine inc oral 14:02:47 TAB CUTTER CPT-24663 Hepatitis A ped/adol 2 dose schedule 14:02:47 TAB CUTTER CPT-86714 Gardasil 14:02:47 TAB CUTTER CPT-41001 Administration single or combination vac cine inc oral 11:40:38 TAB CUTTER CPT-18432 Gardasil 11:40:38 TAB CUTTER CPT-23633 Administration single or combination vac cine inc oral 09:45:00 CDT CPT-04481 Influenza Preservative Free split virus >age 3 09:45:00 CDT CPT-65097 Venipuncture Draw Fee 07:59:02 CDT
--- OUTSIDE RECORDS SUMMARY | 2019-10-10 20:46 | XMS REPORT | Clinical Summary ---
Author Author Admin, Son Chan Organization [employer] Address Unknown Phone Unavailable Allergies, Adverse Reactions, [...] 1 tablet by mouth daily L ORATADINE [id number] No Longer Active Breanne Madl GARAGE DOOR TECHNICIAN Active HYDROXYZINE HCL 25 MG TABS Take 1-2 tablets daily 2015 HYDROXYZINE HCL 44878990174 No Longer Active Breanne Madl GARAGE DOOR TECHNICIAN Active ORTHO TRI-CYCLEN (28) 0.18/0.215/0.25 MG-35 MCG TABS 1 daily NORGESTIM-ETH ESTRAD TRIPHASIC 65557959473 No Longer Active Breanne Madl GARAGE DOOR TECHNICIAN Active CLARITIN 10 MG TAB 1 tablet by mouth daily as needed for itchy r khari LORATADINE 73145882829 No Longer Active Ned Navarrete MD Active AUGMENTIN 875-125 MG TAB 1 po BID x 10 days with food AMOXICILLIN-POT CLAVULANATE 81358001958 No Longer Active Toni Washington DO Active ORTHO TRI-CYCLEN (28) 0.18/0.215/0.25 MG-35 MCG TABS 1 daily NORGESTIM-ETH ESTRAD TRIPHASIC 64074396534 No Longer Active Ned Navarrete MD Active ZOFRAN ODT 4 MG TBDP 1 po q6hr PRN Nausea ONDAN SETRON 16384134419 No Longer Active Ned Navarrete MD Active [facility] 3 MG TABS Take 1 tablet at bedtime. 2013 MELATONIN 14346251295 No Longer Active Ned Navarrete MD Activ e BIOTIN 1000 MCG TABS Take 2 tablets daily BIOTI N 67743821884 No Longer Active Ned Navarrete MD Active OMEPRAZOLE 20 MG CPDR 1 tablet by mouth daily O MEPRAZOLE 02324029776 No Longer Active Mariana Moses APRN Active LATUDA 80 MG TABS 1 tablet daily LURASIDONE HCL 97899855281 No Longer Active Mariana Moses APRN Active ZOVIRAX 400 MG TABS Take 1 tablet every 8 hours as needed 2 ACYCLOVIR 44962050235 No Longer Active Ned Navarrete MD Activ e ZITHROMAX Z-CHACE 250 MG TABS 2 today, then 1 daily for 4 days 201 10/06/11 AZITHROMYCIN 14325708694 No Longer Active Ned Navarrete MD Active TOPAMAX 100 MG TABS 1 tablet daily TOPIRAMATE 54 336010286 No Longer Active Ned Navarrete MD Active AMOXICILLIN 500 MG CAPS 2 po BID x 10 days AMOX ICILLIN 72896190439 No Longer Active Saskia Simon MD PhD Active NAPROSYN 375 MG TAB 1 twice a day as needed for chest pain 04/01 NAPROXEN 34635863692 No Longer Active Saskia Simon MD PhD Active HYDROCORTISONE 2.5 % EXT CREA Apply three times a day to aff ected area HYDROCORTISONE 01820308199 No Longer Active Ned Navarrete MD Active TOPIRAMATE 50 MG TABS 1 QD TOPIRAMATE 67383440941 No Longer Active Ned Navarrete MD Active FANAPT 6 MG TABS 1 BID ILOPERIDONE 08839803542 No L onger Active Ned Navarrete MD Active CIPROFLOXACIN HCL 0.3 % SOLN 1 drop in right eye every 2 hours for 2 days, then 1 drop four times a day CIPROFLOXACIN HCL 73471562111 No Longer Active Ned Navarrete MD Active LORATADINE 10 MG TABS 1 tablet by mouth daily L ORATADINE 85327087095 No Longer Active Ned Navarrete MD Active RANITIDINE HCL 150 MG CAPS 1 twice a day RANITI DINE HCL 55663888509 No Longer Active Ned Navarrete MD Active RANITIDINE HCL 150 MG CAPS 1 twice a day RANITIDINE HCL 150 MG CAPS 877503 RANITIDINE HCL Inactive LORATADINE 10 MG TABS 1 tablet by mouth daily LORATADINE 10 MG TABS 464867 LORATADINE Inactive CIPROFLOXACIN HCL 0.3 % SOLN 1 drop in right eye every 2 hours for 2 days, then 1 drop four times a day CIPROFLOXACIN HCL 0.3 % SOLN 711171 CIPROFLOXACIN HCL Inactive FANAPT 6 MG TABS 1 BID FANAPT 6 MG TABS ILO PERIDONE Inactive TOPIRAMATE 50 MG TABS 1 QD TOPIRAMATE 50 MG TABS 1 92704 TOPIRAMATE Inactive HYDROCORTISONE 2.5 % EXT CREA Apply three times a day to aff ected area HYDROCORTISONE 2.5 % EXT CREA 833347 HYDROCORTIS ONE Inactive NAPROSYN 375 MG TAB 1 twice a day as needed for chest pain 04/01 NAPROSYN 375 MG TAB NAPROXEN Inactive TOPAMAX 100 MG TABS 1 tablet daily TOPAMAX 100 MG TABS 352399 TOPIRAMATE Inactive ZOVIRAX 400 MG TABS Take 1 tablet every 8 hours as needed ZOVIRAX 400 MG TABS 19720728 ACYCLOVIR Inactive LATUDA 80 MG TABS 1 tablet daily LATUDA 80 MG TA BS LURASIDONE HCL Inactive OMEPRAZOLE 20 MG CPDR 1 tablet by mouth daily OMEPRAZOLE 20 MG CPDR 542188 OMEPRAZOLE Inactive BIOTIN 1000 MCG TABS Take 2 tablets daily BIOTIN 1000 MCG TABS 990746 BIOTIN Inactive [facility] 3 MG TABS Take 1 tablet at bedtime. 2013 [facility] MEL[facility] 3 MG TABS 108928 MELATONIN Inactive ZOFRAN ODT 4 MG TBDP 1 po q6hr PRN Nausea ZOFRAN ODT 4 MG TBDP 252177 ONDANSETRON Inactive ORTHO TRI-CYCLEN (28) 0.18/0.215/0.25 MG-35 MCG TABS 1 daily ORTHO TRI-CYCLEN (28) 0.18/0.215/0.25 MG-35 MCG TABS 024629 NORGESTIM-ETH ESTRAD TRIPHASIC Inactive CLARITIN 10 MG TAB 1 tablet by mouth daily as needed for itchy r khrai CLARITIN 10 MG TAB 882174 LORATADINE Inactive ORTHO TRI-CYCLEN (28) 0.18/0.215/0.25 MG-35 MCG TABS 1 daily ORTHO TRI-CYCLEN (28) 0.18/0.215/0.25 MG-35 MCG TABS 835282 NORGESTIM-ETH ESTRAD TRIPHASIC Inactive HYDROXYZINE HCL 25 MG TABS Take 1-2 tablets daily 2015 HYDROXYZINE HCL 25 MG TABS 959037 HYDROXYZINE HCL Inactive LORATADINE 10 MG TABS 1 tablet by mouth daily LORATADINE 10 MG TABS 169166 LORATADINE Inactive AMOXICILLIN 500 MG CAPS 2 po BID x 10 days AMOXICILLIN 500 MG CAPS 801133 AMOXICILLIN Inactive ZITHROMAX Z-CHACE 250 MG TABS 2 today, then 1 daily for 4 days 201 10/06/11 ZITHROMAX Z-CHACE 250 MG TABS 4273219 AZITHROMYCIN Inac tive AUGMENTIN 875-125 MG TAB 1 po BID x 10 days with food AUGMENTIN 875-125 MG TAB 533288 AMOXICILLIN-POT CLAVULANATE Inactiv e Advance Directives Directive [...] 18 yo)) Fluzone preservative free (>3 yrs.) [[id number]] Influenza, seasonal, injectable, preservative free MPSV4 (meningococcal polysaccharide vaccination) Menactra meningococcal polysaccharide vaccine (MPSV4) hepatitis A immunization #1 Havrix-Pedi hepa titis A vaccine, unspecified formulation Adacel (Tetanus, reduced Diphtheria, and acellular Per tussis Immunization) Adacel [[id number]] tetanus toxoid, reduced diph theria toxoid, and [...] Measured Encounters Code Encounter Date Provider Facility CPT-45933 Level 2 Est. Patient 12:43:40 CDT Ned Navarrete MD [facility] CPT-24974 Level 3 Est. Patient 14:38:48 CDT Toni duque [facility] CPT-41321 Level 3 Est. Patient 09:02:58 DIVISION OPERATIONS MANAGER George paulson MD [facility] CPT-87624 Level 3 Est. Patient 17:42:32 CDT Ned Navarrete MD [facility] CPT-11128 Level 3 Est. Patient 11:04:31 DIVISION OPERATIONS MANAGER Mariana Torrez APRN [facility] CPT-93313 Level 4 Est. Patient 12:27:05 DIVISION OPERATIONS MANAGER Ned Navarrete MD [facility] CPT-31636 Level 3 Est. Patient 11:31:58 DIVISION OPERATIONS MANAGER Ned Navarrete MD [facility] CPT-80798 Level 3 Est. Patient 16:49:32 CDT Ned Navarrete MD [facility] CPT-14395 Level 4 Est. Patient 14:11:59 DIVISION OPERATIONS MANAGER Saskia green MD PhD [facility]-88046 Level 3 Est. Patient 17:34:25 CDT Ned Navarrete MD [facility] CPT-90456 Level 3 Est. Patient 17:34:19 CDT Ned Navarrete MD [facility] CPT-44469 Level 3 Est. Patient 13:46:05 CDT Ned Navarrete MD [facility] CPT-71708 Level 3 Est. Patient 16:55:47 DIVISION OPERATIONS MANAGER Ned Navarrete MD [facility] CPT-84538 Level 2 Est. Patient 17:33:08 DIVISION OPERATIONS MANAGER Ned Navarrete MD [facility] CPT-88196 Level 3 Est. Patient 16:25:26 DIVISION OPERATIONS MANAGER Ned Navarrete MD [facility] Procedures Code Procedure Name Date Entry Date Standard Desc ription CPT-033 [facility] Med Screen 14:03:18 CDT CPT-033 [facility] Med Screen 11:04:57 CDT CPT-033 [facility] Med Screen 10:29:44 CDT CPT-49505 Administration 2+ single or combination vaccines inc oral 14:02:47 DIVISION OPERATIONS MANAGER CPT-79379 Administration single or combination vac cine inc oral 14:02:47 DIVISION OPERATIONS MANAGER CPT-68815 Hepatitis A ped/adol 2 dose schedule 14:02:47 DIVISION OPERATIONS MANAGER CPT-45356 Gardasil 14:02:47 DIVISION OPERATIONS MANAGER CPT-03048 Administration single or combination vac cine inc oral 11:40:38 DIVISION OPERATIONS MANAGER CPT-29433 Gardasil 11:40:38 DIVISION OPERATIONS MANAGER CPT-82228 Administration single or combination vac cine inc oral 09:45:00 CDT CPT-00561 Influenza Preservative Free split virus >age 3 09:45:00 CDT CPT-34994 Venipuncture Draw Fee 07:59:02 CDT
--- OUTSIDE RECORDS SUMMARY | 2019-10-10 20:46 | XMS REPORT | Clinical Summary ---
Author Author Admin, Son Chan Organization [employer] Address Unknown Phone Unavailable Allergies, Adverse Reactions, [...] 1 [address] for 3 days PREDNISONE [id number] Active Ned Navarrete MD Active CEPHALEXIN 500 MG ORAL CAPS CEPHALEXIN 76221888157 No Longer Active Ned Navarrete MD Active LATUDA 20 MG ORAL TABS LURASIDONE HCL 1405495 0230 Active Breanne Madl CHARGER Active LORATADINE 10 MG TABS 1 tablet by mouth daily L ORATADINE 11305116643 No Longer Active Breanne Madl CHARGER Active HYDROXYZINE HCL 25 MG TABS Take 1-2 tablets daily 2015 HYDROXYZINE HCL 13987632482 No Longer Active Breanne Madl CHARGER Active ORTHO TRI-CYCLEN (28) 0.18/0.215/0.25 MG-35 MCG TABS 1 daily NORGESTIM-ETH ESTRAD TRIPHASIC 27589323081 No Longer Active Breanne Madl CHARGER Active CLARITIN 10 MG TAB 1 tablet by mouth daily as needed for itchy r khari LORATADINE 00129237900 No Longer Active Ned Navarrete MD Active AUGMENTIN 875-125 MG TAB 1 po BID x 10 days with food AMOXICILLIN-POT CLAVULANATE 53279655663 No Longer Active Toni Washington DO Active ORTHO TRI-CYCLEN (28) 0.18/0.215/0.25 MG-35 MCG TABS 1 daily NORGESTIM-ETH ESTRAD TRIPHASIC 73094020106 No Longer Active Ned Navarrete MD Active ZOFRAN ODT 4 MG TBDP 1 po q6hr PRN Nausea ONDAN SETRON 28401866476 No Longer Active Ned Navarrete MD Active [facility]EL[facility] 3 MG TABS Take 1 tablet at bedtime. 2013 MELATONIN 48793024973 No Longer Active Ned Navarrete MD Activ e BIOTIN 1000 MCG TABS Take 2 tablets daily BIOTI N 08372326889 No Longer Active Ned Navarrete MD Active OMEPRAZOLE 20 MG CPDR 1 tablet by mouth daily O MEPRAZOLE 29527694037 No Longer Active Mariana Moses APRN Active LATUDA 80 MG TABS 1 tablet daily LURASIDONE HCL 23582708614 No Longer Active Mariana Moses APRN Active ZOVIRAX 400 MG TABS Take 1 tablet every 8 hours as needed 2 ACYCLOVIR 39415549120 No Longer Active Ned Navarrete MD Activ e ZITHROMAX Z-CHACE 250 MG TABS 2 today, then 1 daily for 4 days 201 10/06/11 AZITHROMYCIN 78678584449 No Longer Active Ned Navarrete MD Active TOPAMAX 100 MG TABS 1 tablet daily TOPIRAMATE 54 688274679 No Longer Active Ned Navarrete MD Active AMOXICILLIN 500 MG CAPS 2 po BID x 10 days AMOX ICILLIN 05645300861 No Longer Active Saskia Simon MD PhD Active NAPROSYN 375 MG TAB 1 twice a day as needed for chest pain 04/01 NAPROXEN 02159116186 No Longer Active Saskia Simon MD PhD Active HYDROCORTISONE 2.5 % EXT CREA Apply three times a day to aff ected area HYDROCORTISONE 87727884852 No Longer Active Ned Navarrete MD Active TOPIRAMATE 50 MG TABS 1 QD TOPIRAMATE 57820153010 No Longer Active Ned Navarrete MD Active FANAPT 6 MG TABS 1 BID ILOPERIDONE 44792200968 No L onger Active Ned Navarrete MD Active CIPROFLOXACIN HCL 0.3 % SOLN 1 drop in right eye every 2 hours for 2 days, then 1 drop four times a day CIPROFLOXACIN HCL 75599399936 No Longer Active Ned Navarrete MD Active LORATADINE 10 MG TABS 1 tablet by mouth daily L ORATADINE 77356816228 No Longer Active Ned Navarrete MD Active RANITIDINE HCL 150 MG CAPS 1 twice a day RANITI DINE HCL 93576678129 No Longer Active Ned Navarrete MD Active RANITIDINE HCL 150 MG CAPS 1 twice a day RANITIDINE HCL 150 MG CAPS 547388 RANITIDINE HCL Inactive LORATADINE 10 MG TABS 1 tablet by mouth daily LORATADINE 10 MG TABS 617609 LORATADINE Inactive CIPROFLOXACIN HCL 0.3 % SOLN 1 drop in right eye every 2 hours for 2 days, then 1 drop four times a day CIPROFLOXACIN HCL 0.3 % SOLN 383448 CIPROFLOXACIN HCL Inactive FANAPT 6 MG TABS 1 BID FANAPT 6 MG TABS ILO PERIDONE Inactive TOPIRAMATE 50 MG TABS 1 QD TOPIRAMATE 50 MG TABS 1 79548 TOPIRAMATE Inactive HYDROCORTISONE 2.5 % EXT CREA Apply three times a day to aff ected area HYDROCORTISONE 2.5 % EXT CREA 899290 HYDROCORTIS ONE Inactive NAPROSYN 375 MG TAB 1 twice a day as needed for chest pain 04/01 NAPROSYN 375 MG TAB NAPROXEN Inactive TOPAMAX 100 MG TABS 1 tablet daily TOPAMAX 100 MG TABS 129446 TOPIRAMATE Inactive ZOVIRAX 400 MG TABS Take 1 tablet every 8 hours as needed 2 ZOVIRAX 400 MG TABS 933653 ACYCLOVIR Inactive LATUDA 80 MG TABS 1 tablet daily LATUDA 80 MG TA BS LURASIDONE HCL Inactive OMEPRAZOLE 20 MG CPDR 1 tablet by mouth daily OMEPRAZOLE 20 MG CPDR 181306 OMEPRAZOLE Inactive BIOTIN 1000 MCG TABS Take 2 tablets daily BIOTIN 1000 MCG TABS 309470 BIOTIN Inactive [facility] 3 MG TABS Take 1 tablet at bedtime. 2013 [facility] 3 MG TABS 781847 MELATONIN Inactive ZOFRAN ODT 4 MG TBDP 1 po q6hr PRN Nausea ZOFRAN ODT 4 MG TBDP 335412 ONDANSETRON Inactive ORTHO TRI-CYCLEN (28) 0.18/0.215/0.25 MG-35 MCG TABS 1 daily ORTHO TRI-CYCLEN (28) 0.18/0.215/0.25 MG-35 MCG TABS 564532 NORGESTIM-ETH ESTRAD TRIPHASIC Inactive CLARITIN 10 MG TAB 1 tablet by mouth daily as needed for itchy r khari CLARITIN 10 MG TAB 684804 LORATADINE Inactive ORTHO TRI-CYCLEN (28) 0.18/0.215/0.25 MG-35 MCG TABS 1 daily ORTHO TRI-CYCLEN (28) 0.18/0.215/0.25 MG-35 MCG TABS 873968 NORGESTIM-ETH ESTRAD TRIPHASIC Inactive HYDROXYZINE HCL 25 MG TABS Take 1-2 tablets daily 2015 HYDROXYZINE HCL 25 MG TABS 392634 HYDROXYZINE HCL Inactive LORATADINE 10 MG TABS 1 tablet by mouth daily LORATADINE 10 MG TABS 916077 LORATADINE Inactive CEPHALEXIN 500 MG ORAL CAPS CEPHALEX IN 500 MG ORAL CAPS 261945 CEPHALEXIN Inactive AMOXICILLIN 500 MG CAPS 2 po BID x 10 days AMOXICILLIN 500 MG CAPS 469763 AMOXICILLIN Inactive ZITHROMAX Z-CHACE 250 MG TABS 2 today, then 1 daily for 4 days 201 10/06/11 ZITHROMAX Z-CHACE 250 MG TABS 5622479 AZITHROMYCIN Inac tive AUGMENTIN 875-125 MG TAB 1 po BID x 10 days with food AUGMENTIN 875-125 MG TAB 584188 AMOXICILLIN-POT CLAVULANATE Inactiv e Advance Directives Directive [...] 18 yo)) Fluzone preservative free (>3 yrs.) [[id number]] Influenza, seasonal, injectable, preservative free MPSV4 (meningococcal polysaccharide vaccination) Menactra meningococcal polysaccharide vaccine (MPSV4) hepatitis A immunization #1 Havrix-Pedi hepa titis A vaccine, unspecified formulation Adacel (Tetanus, reduced Diphtheria, and acellular Per tussis Immunization) Adacel [[id number]] tetanus toxoid, reduced diph theria toxoid, and [...] 11 .0-15.0 platelet count 210 THOUSAND/UL 10*3/mm3 301-051 7364/11/02 mean platelet volume 10.3 fL 7.5-11.5 Lab [...] ative Encounters Code Encounter Date Provider Facility CPT-68642 Level 3 Est. Patient 15:35:51 MOBILE DEVELOPMENT MANAGER Ned Navarrete MD [facility] CPT-18478 Level 2 Est. Patient 12:43:40 CDT Ned Navarrete MD [facility]-48993 Level 3 Est. Patient 14:38:48 CDT Toni duque DO [facility]-09771 Level 3 Est. Patient 09:02:58 MOBILE DEVELOPMENT MANAGER George paulson MD [facility] CPT-13899 Level 3 Est. Patient 17:42:32 CDT Ned Navarrete MD [facility]-82139 Level 3 Est. Patient 11:04:31 MOBILE DEVELOPMENT MANAGER Mariana Torrez APRN [facility] CPT-27539 Level 4 Est. Patient 12:27:05 MOBILE DEVELOPMENT MANAGER Ned Navarrete MD [facility]-31629 Level 3 Est. Patient 11:31:58 MOBILE DEVELOPMENT MANAGER Ned Navarrete MD [facility] CPT-02844 Level 3 Est. Patient 16:49:32 CDT Ned Navarrete MD [facility]-22402 Level 4 Est. Patient 14:11:59 MOBILE DEVELOPMENT MANAGER Saskia green MD PhD [facility] CPT-28748 Level 3 Est. Patient 17:34:25 CDT Ned Navarrete MD [facility]-48832 Level 3 Est. Patient 17:34:19 CDT Ned Navarrete MD [facility] CPT-53767 Level 3 Est. Patient 13:46:05 CDT Ned Navarrete MD [facility] CPT-45611 Level 3 Est. Patient 16:55:47 MOBILE DEVELOPMENT MANAGER Ned Navarrete MD [facility] CPT-36574 Level 2 Est. Patient 17:33:08 MOBILE DEVELOPMENT MANAGER Ned Navarrete MD [facility] CPT-81370 Level 3 Est. Patient 16:25:26 MOBILE DEVELOPMENT MANAGER Ned Navarrete MD [facility] Procedures Code Procedure Name Date Entry Date Standard Desc ription CPT-55330 Visit 16:49:41 MOBILE DEVELOPMENT MANAGER CPT-08700 Sono OB limited - XRAY USE ONLY 16:38:01 CS T CPT-71939 Sono OB comp > 14 weeks - XRAY USE ONLY 17:00:59 MOBILE DEVELOPMENT MANAGER CPT-81313 UA w micro - LAB USE ONLY 16:59:38 CDT 2015 CPT-29018 TSH - LAB USE ONLY 16:59:38 CDT CPT-19582 Venipuncture Draw Fee 16:59:38 CDT CPT-62782 Spec Collection and Handling Fee 14:01:24 C DT CPT-95828 Visit 14:01:24 CDT CPT-033 [facility] Med Screen 14:03:18 CDT CPT-033 [facility] Med Screen 11:04:57 CDT CPT-033 [facility] Med Screen 10:29:44 CDT CPT-17080 Administration 2+ single or combination vaccines inc oral 14:02:47 MOBILE DEVELOPMENT MANAGER CPT-91672 Administration single or combination vac cine inc oral 14:02:47 MOBILE DEVELOPMENT MANAGER CPT-72564 Hepatitis A ped/adol 2 dose schedule 14:02:47 MOBILE DEVELOPMENT MANAGER CPT-49290 Gardasil 14:02:47 MOBILE DEVELOPMENT MANAGER CPT-00503 Administration single or combination vac cine inc oral 11:40:38 MOBILE DEVELOPMENT MANAGER CPT-83921 Gardasil 11:40:38 MOBILE DEVELOPMENT MANAGER CPT-77461 Administration single or combination vac cine inc oral 09:45:00 CDT CPT-17583 Influenza Preservative Free split virus >age 3 09:45:00 CDT CPT-33874 Venipuncture Draw Fee 07:59:02 CDT
--- OUTSIDE RECORDS SUMMARY | 2019-10-10 20:46 | XMS REPORT | Clinical Summary ---
Author Author Admin, Son Chan Organization [employer] Address Unknown Phone Unavailable Allergies, Adverse Reactions, [...] 1 [address] for 3 days PREDNISONE [id number] No Longer Active Ned pérez MD Active CEPHALEXIN 500 MG ORAL CAPS CEPHALEXIN 34006965012 No Longer Active Ned Navarrete MD Active LATUDA 20 MG ORAL TABS LURASIDONE HCL 8754388 0230 Active Breanne Madl PRICER BAGGER Active LORATADINE 10 MG TABS 1 tablet by mouth daily L ORATADINE 40617523451 No Longer Active Breanne Madl PRICER BAGGER Active HYDROXYZINE HCL 25 MG TABS Take 1-2 tablets daily 2015 HYDROXYZINE HCL 12504875659 No Longer Active Breanne Madl PRICER BAGGER Active ORTHO TRI-CYCLEN (28) 0.18/0.215/0.25 MG-35 MCG TABS 1 daily NORGESTIM-ETH ESTRAD TRIPHASIC 52244104263 No Longer Active Breanne Madl PRICER BAGGER Active CLARITIN 10 MG TAB 1 tablet by mouth daily as needed for itchy r khari LORATADINE 24051857954 No Longer Active Ned Navarrete MD Active AUGMENTIN 875-125 MG TAB 1 po BID x 10 days with food AMOXICILLIN-POT CLAVULANATE 89838787952 No Longer Active Toni Washington DO Active ORTHO TRI-CYCLEN (28) 0.18/0.215/0.25 MG-35 MCG TABS 1 daily NORGESTIM-ETH ESTRAD TRIPHASIC 06243208574 No Longer Active Ned Navarrete MD Active ZOFRAN ODT 4 MG TBDP 1 po q6hr PRN Nausea ONDAN SETRON 33426040692 No Longer Active Ned Navarrete MD Active [facility] MEL[facility] 3 MG TABS Take 1 tablet at bedtime. 2013 MELATONIN 54346150351 No Longer Active Ned Navarrete MD Activ e BIOTIN 1000 MCG TABS Take 2 tablets daily BIOTI N 73687525566 No Longer Active Ned Navarrete MD Active OMEPRAZOLE 20 MG CPDR 1 tablet by mouth daily O MEPRAZOLE 55346345724 No Longer Active Mariana Moses APRN Active LATUDA 80 MG TABS 1 tablet daily LURASIDONE HCL 40807235733 No Longer Active Mariana Moses APRN Active ZOVIRAX 400 MG TABS Take 1 tablet every 8 hours as needed 2 ACYCLOVIR 25624004920 No Longer Active Ned Navarrete MD Activ e ZITHROMAX Z-CHACE 250 MG TABS 2 today, then 1 daily for 4 days 201 10/06/11 AZITHROMYCIN 97347559736 No Longer Active Ned Navarrete MD Active TOPAMAX 100 MG TABS 1 tablet daily TOPIRAMATE 54 393927030 No Longer Active Ned Navarrete MD Active AMOXICILLIN 500 MG CAPS 2 po BID x 10 days AMOX ICILLIN 71808826811 No Longer Active Saskia Simon MD PhD Active NAPROSYN 375 MG TAB 1 twice a day as needed for chest pain 04/01 NAPROXEN 62417199113 No Longer Active Saskia Simon MD PhD Active HYDROCORTISONE 2.5 % EXT CREA Apply three times a day to aff ected area HYDROCORTISONE 06823846068 No Longer Active Ned Navarrete MD Active TOPIRAMATE 50 MG TABS 1 QD TOPIRAMATE 36204107175 No Longer Active Ned Navarrete MD Active FANAPT 6 MG TABS 1 BID ILOPERIDONE 58570054260 No L onger Active Ned Navarrete MD Active CIPROFLOXACIN HCL 0.3 % SOLN 1 drop in right eye every 2 hours for 2 days, then 1 drop four times a day CIPROFLOXACIN HCL 20031240577 No Longer Active Ned Navarrete MD Active LORATADINE 10 MG TABS 1 tablet by mouth daily L ORATADINE 43599278467 No Longer Active Ned Navarrete MD Active RANITIDINE HCL 150 MG CAPS 1 twice a day RANITI DINE HCL 54287955192 No Longer Active Ned Navarrete MD Active RANITIDINE HCL 150 MG CAPS 1 twice a day RANITIDINE HCL 150 MG CAPS 673097 RANITIDINE HCL Inactive LORATADINE 10 MG TABS 1 tablet by mouth daily LORATADINE 10 MG TABS 130972 LORATADINE Inactive CIPROFLOXACIN HCL 0.3 % SOLN 1 drop in right eye every 2 hours for 2 days, then 1 drop four times a day CIPROFLOXACIN HCL 0.3 % SOLN 002336 CIPROFLOXACIN HCL Inactive FANAPT 6 MG TABS 1 BID FANAPT 6 MG TABS ILO PERIDONE Inactive TOPIRAMATE 50 MG TABS 1 QD TOPIRAMATE 50 MG TABS 1 01054 TOPIRAMATE Inactive HYDROCORTISONE 2.5 % EXT CREA Apply three times a day to aff ected area HYDROCORTISONE 2.5 % EXT CREA 489361 HYDROCORTIS ONE Inactive NAPROSYN 375 MG TAB 1 twice a day as needed for chest pain 04/01 NAPROSYN 375 MG TAB NAPROXEN Inactive TOPAMAX 100 MG TABS 1 tablet daily TOPAMAX 100 MG TABS 024844 TOPIRAMATE Inactive ZOVIRAX 400 MG TABS Take 1 tablet every 8 hours as needed 2 ZOVIRAX 400 MG TABS 759302 ACYCLOVIR Inactive LATUDA 80 MG TABS 1 tablet daily LATUDA 80 MG TA BS LURASIDONE HCL Inactive OMEPRAZOLE 20 MG CPDR 1 tablet by mouth daily OMEPRAZOLE 20 MG CPDR 648268 OMEPRAZOLE Inactive BIOTIN 1000 MCG TABS Take 2 tablets daily BIOTIN 1000 MCG TABS 536809 BIOTIN Inactive [facility] MEL[facility]IN 3 MG TABS Take 1 tablet at bedtime. 2013 [facility] MEL[facility] 3 MG TABS 299076 MELATONIN Inactive ZOFRAN ODT 4 MG TBDP 1 po q6hr PRN Nausea ZOFRAN ODT 4 MG TBDP 261843 ONDANSETRON Inactive ORTHO TRI-CYCLEN (28) 0.18/0.215/0.25 MG-35 MCG TABS 1 daily ORTHO TRI-CYCLEN (28) 0.18/0.215/0.25 MG-35 MCG TABS 593996 NORGESTIM-ETH ESTRAD TRIPHASIC Inactive CLARITIN 10 MG TAB 1 tablet by mouth daily as needed for itchy r khari CLARITIN 10 MG TAB 006169 LORATADINE Inactive ORTHO TRI-CYCLEN (28) 0.18/0.215/0.25 MG-35 MCG TABS 1 daily ORTHO TRI-CYCLEN (28) 0.18/0.215/0.25 MG-35 MCG TABS 887006 NORGESTIM-ETH ESTRAD TRIPHASIC Inactive HYDROXYZINE HCL 25 MG TABS Take 1-2 tablets daily 2015 HYDROXYZINE HCL 25 MG TABS 411879 HYDROXYZINE HCL Inactive LORATADINE 10 MG TABS 1 tablet by mouth daily LORATADINE 10 MG TABS 936532 LORATADINE Inactive CEPHALEXIN 500 MG ORAL CAPS CEPHALEX IN 500 MG ORAL CAPS 915823 CEPHALEXIN Inactive PREDNISONE 20 MG TABS Take 2 daily for 3 days and then 1 herman ly for 3 days PREDNISONE 20 MG TABS 739933 PREDNISONE Inacti ve AMOXICILLIN 500 MG CAPS 2 po BID x 10 days AMOXICILLIN 500 MG CAPS 008359 AMOXICILLIN Inactive ZITHROMAX Z-CHACE 250 MG TABS 2 today, then 1 daily for 4 days 201 10/06/11 ZITHROMAX Z-CHACE 250 MG TABS 7469712 AZITHROMYCIN Inac tive AUGMENTIN 875-125 MG TAB 1 po BID x 10 days with food AUGMENTIN 875-125 MG TAB 071005 AMOXICILLIN-POT CLAVULANATE Inactiv e Advance Directives Directive [...] 16 yo)) Fluzone preservative free (>3 yrs.) [[id number]] Influenza, seasonal, injectable, preservative free hepatitis A immunization #1 Havrix-Pedi hepa titis A vaccine, unspecified formulation MPSV4 (meningococcal polysaccharide vaccination) Menactra meningococcal polysaccharide vaccine (MPSV4) Adacel (Tetanus, reduced Diphtheria, and acellular Per tussis Immunization) Adacel [[id number]] tetanus toxoid, reduced diph theria toxoid, and [...] 11 .0-15.0 platelet count 210 THOUSAND/UL 10*3/mm3 854-089 7530/11/02 mean platelet volume 10.3 fL 7.5-11.5 Lab [...] N Encounters Code Encounter Date Provider Facility CPT-17457 Level 3 Est. Patient 15:21:38 MEDICAL CODER Rayna Pepper APRN [facility] CPT-36158 Level 3 Est. Patient 15:35:51 MEDICAL CODER Ned Navarrete MD [facility] CPT-71053 Level 2 Est. Patient 12:43:40 CDT Ned Navarrete MD [facility] CPT-81105 Level 3 Est. Patient 14:38:48 CDT Toni duque DO [facility] CPT-41081 Level 3 Est. Patient 09:02:58 MEDICAL CODER George paulson MD [facility] CPT-73387 Level 3 Est. Patient 17:42:32 CDT Ned Navarrete MD [facility] CPT-37160 Level 3 Est. Patient 11:04:31 MEDICAL CODER Mariana Torrez APRN [facility] CPT-52356 Level 4 Est. Patient 12:27:05 MEDICAL CODER Ned Navarrete MD [facility] CPT-70332 Level 3 Est. Patient 11:31:58 MEDICAL CODER Ned Navarrete MD [facility] CPT-70301 Level 3 Est. Patient 16:49:32 CDT Ned Navarrete MD [facility] CPT-24091 Level 4 Est. Patient 14:11:59 MEDICAL CODER Saskia green MD PhD [facility] CPT-63027 Level 3 Est. Patient 17:34:25 CDT Ned Navarrete MD [facility] CPT-31049 Level 3 Est. Patient 17:34:19 CDT Ned Navarrete MD [facility] CPT-99079 Level 3 Est. Patient 13:46:05 CDT Ned Navarrete MD [facility] CPT-90814 Level 3 Est. Patient 16:55:47 MEDICAL CODER Ned Navarrete MD [facility] CPT-42321 Level 2 Est. Patient 17:33:08 MEDICAL CODER Ned Navarrete MD [facility] CPT-81721 Level 3 Est. Patient 16:25:26 MEDICAL CODER Ned Navarrete MD [facility] Procedures Code Procedure Name Date Entry Date Standard Desc ription CPT-89492 Visit 15:17:20 CDT CPT-34339 Visit 15:57:29 CDT CPT-38304 First Vx - Ix admin via ID I M or jet injects without counseling by physician 15:53:15 CDT CPT-66211 Boostrix Intramuscular Suspension 5-2.5-18.5 201 01/28/11 15:53:14 CDT CPT-96011 Tdap 7yrs or > 14:41:06 CDT CPT-78803 Visit 17:47:08 CDT CPT-90937 OBGTT 1 - LAB USE ONLY 10:15:57 CDT CPT-45551 Venipuncture Draw Fee 10:15:57 CDT CPT-67210 Visit 15:07:16 MEDICAL CODER CPT-89028 Visit 16:49:41 MEDICAL CODER CPT-58094 Sono OB limited - XRAY USE ONLY 16:38:01 CS T CPT-50102 Sono OB comp > 14 weeks - XRAY USE ONLY 17:00:59 MEDICAL CODER CPT-31762 UA w micro - LAB USE ONLY 16:59:38 CDT 2015 CPT-82566 TSH - LAB USE ONLY 16:59:38 CDT CPT-82715 Venipuncture Draw Fee 16:59:38 CDT CPT-50638 Spec Collection and Handling Fee 14:01:24 C DT CPT-84926 Visit 14:01:24 CDT CPT-033 KB Med Screen 14:03:18 CDT CPT-033 [facility] Med Screen 11:04:57 CDT CPT-033 KB Med Screen 10:29:44 CDT CPT-01212 Administration 2+ single or combination vaccines inc oral 14:02:47 MEDICAL CODER CPT-46244 Administration single or combination vac cine inc oral 14:02:47 MEDICAL CODER CPT-67405 Hepatitis A ped/adol 2 dose schedule 14:02:47 MEDICAL CODER CPT-91017 Gardasil 14:02:47 MEDICAL CODER CPT-96472 Administration single or combination vac cine inc oral 11:40:38 MEDICAL CODER CPT-55009 Gardasil 11:40:38 MEDICAL CODER CPT-26672 Administration single or combination vac cine inc oral 09:45:00 CDT CPT-70559 Influenza Preservative Free split virus >age 3 09:45:00 CDT CPT-68125 Venipuncture Draw Fee 07:59:02 CDT
--- OUTSIDE RECORDS SUMMARY | 2019-10-10 20:47 | XMS REPORT | Clinical Summary ---
Author Author Admin, Son Rodriguez [facility] Address Unknown Phone Unavailable [...] condition or complication Methamphetamine abuse 305.70 Inactive [facility] Amphetamine or related [...] LPN state, incidental WEIGHT GAIN ICD-783.1 Inactive eNd Navarrete MD NASOLACRIMAL DUCT OBSTRUCTION, LEFT ICD-375.56 [...] 1 [address] for 3 days PREDNISONE 91796524517 No Longer Active Ned pérez MD Active CEPHALEXIN 500 MG ORAL CAPS CEPHALEXIN 67853885573 No Longer Active Ned Navarrete MD Active LATUDA 20 MG ORAL TABS LURASIDONE HCL 5438686 0230 Active Breanne Madl CHECK CASHIER Active LORATADINE 10 MG TABS 1 tablet by mouth daily L ORATADINE 28267303458 No Longer Active Breanne Madl CHECK CASHIER Active HYDROXYZINE HCL 25 MG TABS Take 1-2 tablets daily 2015 HYDROXYZINE HCL 65744070643 No Longer Active Breanne Madl CHECK CASHIER Active ORTHO TRI-CYCLEN (28) 0.18/0.215/0.25 MG-35 MCG TABS 1 daily NORGESTIM-ETH ESTRAD TRIPHASIC 03399837744 No Longer Active Breanne Madl CHECK CASHIER Active CLARITIN 10 MG TAB 1 tablet by mouth daily as needed for itchy r khari LORATADINE 04604535171 No Longer Active Ned Navarrete MD Active AUGMENTIN 875-125 MG TAB 1 po BID x 10 days with food AMOXICILLIN-POT CLAVULANATE 63020493741 No Longer Active Toni Washington DO Active ORTHO TRI-CYCLEN (28) 0.18/0.215/0.25 MG-35 MCG TABS 1 daily NORGESTIM-ETH ESTRAD TRIPHASIC 13383795761 No Longer Active Ned Navarrete MD Active ZOFRAN ODT 4 MG TBDP 1 po q6hr PRN Nausea ONDAN SETRON 75568774752 No Longer Active Ned Navarrete MD Active [facility] MELAT[facility]IN 3 MG TABS Take 1 tablet at bedtime. 2013 MELATONIN 52772639996 No Longer Active Ned Navarrete MD Activ e BIOTIN 1000 MCG TABS Take 2 tablets daily BIOTI N 28699244658 No Longer Active Ned Navarrete MD Active OMEPRAZOLE 20 MG CPDR 1 tablet by mouth daily O MEPRAZOLE 84032610804 No Longer Active Mariana Moses APRN Active LATUDA 80 MG TABS 1 tablet daily LURASIDONE HCL 03367342603 No Longer Active Mariana Moses APRN Active ZOVIRAX 400 MG TABS Take 1 tablet every 8 hours as needed 2 ACYCLOVIR 94471509860 No Longer Active Ned Navarrete MD Activ e ZITHROMAX Z-CHACE 250 MG TABS 2 today, then 1 daily for 4 days 201 10/06/11 AZITHROMYCIN 70624094831 No Longer Active Ned Navarrete MD Active TOPAMAX 100 MG TABS 1 tablet daily TOPIRAMATE 54 819962679 No Longer Active Ned Navarrete MD Active AMOXICILLIN 500 MG CAPS 2 po BID x 10 days AMOX ICILLIN 79515231304 No Longer Active Saskia Simon MD PhD Active NAPROSYN 375 MG TAB 1 twice a day as needed for chest pain 04/01 NAPROXEN 88935333270 No Longer Active Saskia Simon MD PhD Active HYDROCORTISONE 2.5 % EXT CREA Apply three times a day to aff ected area HYDROCORTISONE 73494847912 No Longer Active Ned Navarrete MD Active TOPIRAMATE 50 MG TABS 1 QD TOPIRAMATE 23742787568 No Longer Active Ned Navarrete MD Active FANAPT 6 MG TABS 1 BID ILOPERIDONE 11837171897 No L onger Active Ned Navarrete MD Active CIPROFLOXACIN HCL 0.3 % SOLN 1 drop in right eye every 2 hours for 2 days, then 1 drop four times a day CIPROFLOXACIN HCL 98995054121 No Longer Active Ned Navarrete MD Active LORATADINE 10 MG TABS 1 tablet by mouth daily L ORATADINE 93861227425 No Longer Active Ned Navarrete MD Active RANITIDINE HCL 150 MG CAPS 1 twice a day RANITI DINE HCL 84707270189 No Longer Active Ned Navarrete MD Active RANITIDINE HCL 150 MG CAPS 1 twice a day RANITIDINE HCL 150 MG CAPS 147982 RANITIDINE HCL Inactive LORATADINE 10 MG TABS 1 tablet by mouth daily LORATADINE 10 MG TABS 937140 LORATADINE Inactive CIPROFLOXACIN HCL 0.3 % SOLN 1 drop in right eye every 2 hours for 2 days, then 1 drop four times a day CIPROFLOXACIN HCL 0.3 % SOLN 952060 CIPROFLOXACIN HCL Inactive FANAPT 6 MG TABS 1 BID FANAPT 6 MG TABS ILO PERIDONE Inactive TOPIRAMATE 50 MG TABS 1 QD TOPIRAMATE 50 MG TABS 1 77872 TOPIRAMATE Inactive HYDROCORTISONE 2.5 % EXT CREA Apply three times a day to aff ected area HYDROCORTISONE 2.5 % EXT CREA 127242 HYDROCORTIS ONE Inactive NAPROSYN 375 MG TAB 1 twice a day as needed for chest pain 04/01 NAPROSYN 375 MG TAB NAPROXEN Inactive TOPAMAX 100 MG TABS 1 tablet daily TOPAMAX 100 MG TABS 055452 TOPIRAMATE Inactive ZOVIRAX 400 MG TABS Take 1 tablet every 8 hours as needed 2 ZOVIRAX 400 MG TABS 669796 ACYCLOVIR Inactive LATUDA 80 MG TABS 1 tablet daily LATUDA 80 MG TA BS LURASIDONE HCL Inactive OMEPRAZOLE 20 MG CPDR 1 tablet by mouth daily OMEPRAZOLE 20 MG CPDR 841010 OMEPRAZOLE Inactive BIOTIN 1000 MCG TABS Take 2 tablets daily BIOTIN 1000 MCG TABS 737798 BIOTIN Inactive [facility] MEL[facility]IN 3 MG TABS Take 1 tablet at bedtime. 2013 [facility] MEL[facility]IN 3 MG TABS 178252 MELATONIN Inactive ZOFRAN ODT 4 MG TBDP 1 po q6hr PRN Nausea ZOFRAN ODT 4 MG TBDP 924872 ONDANSETRON Inactive ORTHO TRI-CYCLEN (28) 0.18/0.215/0.25 MG-35 MCG TABS 1 daily ORTHO TRI-CYCLEN (28) 0.18/0.215/0.25 MG-35 MCG TABS 147616 NORGESTIM-ETH ESTRAD TRIPHASIC Inactive CLARITIN 10 MG TAB 1 tablet by mouth daily as needed for itchy r khari CLARITIN 10 MG TAB 679544 LORATADINE Inactive ORTHO TRI-CYCLEN (28) 0.18/0.215/0.25 MG-35 MCG TABS 1 daily ORTHO TRI-CYCLEN (28) 0.18/0.215/0.25 MG-35 MCG TABS 556433 NORGESTIM-ETH ESTRAD TRIPHASIC Inactive HYDROXYZINE HCL 25 MG TABS Take 1-2 tablets daily 2015 HYDROXYZINE HCL 25 MG TABS 409312 HYDROXYZINE HCL Inactive LORATADINE 10 MG TABS 1 tablet by mouth daily LORATADINE 10 MG TABS 264682 LORATADINE Inactive CEPHALEXIN 500 MG ORAL CAPS CEPHALEX IN 500 MG ORAL CAPS 805025 CEPHALEXIN Inactive PREDNISONE 20 MG TABS Take 2 daily for 3 days and then 1 herman ly for 3 days PREDNISONE 20 MG TABS 536260 PREDNISONE Inacti ve AMOXICILLIN 500 MG CAPS 2 po BID x 10 days AMOXICILLIN 500 MG CAPS 812694 AMOXICILLIN Inactive ZITHROMAX Z-CHACE 250 MG TABS 2 today, then 1 daily for 4 days 201 10/06/11 ZITHROMAX Z-CHACE 250 MG TABS 1133873 AZITHROMYCIN Inac tive AUGMENTIN 875-125 MG TAB 1 po BID x 10 days with food AUGMENTIN 875-125 MG TAB 918913 AMOXICILLIN-POT CLAVULANATE Inactiv e Advance Directives Directive [...] 18 yo)) Fluzone preservative free (>3 yrs.) [[id number]] Influenza, seasonal, injectable, preservative free MPSV4 (meningococcal polysaccharide vaccination) Menactra meningococcal polysaccharide vaccine (MPSV4) hepatitis A immunization #1 Havrix-Pedi hepa titis A vaccine, unspecified formulation Adacel (Tetanus, reduced Diphtheria, and acellular Per tussis Immunization) Adacel [[id number]] tetanus toxoid, reduced diph theria toxoid, and [...] 11 .0-15.0 platelet count 210 THOUSAND/UL 10*3/mm3 241-182 7497/11/02 mean platelet volume 10.3 fL 7.5-11.5 Lab [...] N Encounters Code Encounter Date Provider Facility CPT-21934 Level 3 Est. Patient 15:21:38 [employer] Rayna Pepper [facility] CPT-65989 Level 3 Est. Patient 15:35:51 [employer] Ned Navarrete MD [facility] CPT-24769 Level 2 Est. Patient 12:43:40 CDT Ned Navarrete MD [facility] CPT-29329 Level 3 Est. Patient 14:38:48 CDT Toni duque DO [facility] CPT-40555 Level 3 Est. Patient 09:02:58 [employer] George paulson MD [facility] CPT-56210 Level 3 Est. Patient 17:42:32 CDT Ned Navarrete MD [facility] CPT-46199 Level 3 Est. Patient 11:04:31 [employer] Mariana Torrez [facility] CPT-31900 Level 4 Est. Patient 12:27:05 [employer] Ned Navarrete MD [facility] CPT-56863 Level 3 Est. Patient 11:31:58 [employer] Ned Navarrete MD [facility] CPT-80549 Level 3 Est. Patient 16:49:32 CDT Ned Navarrete MD [facility] CPT-71109 Level 4 Est. Patient 14:11:59 [employer] Saskia green MD PhD [facility] CPT-02279 Level 3 Est. Patient 17:34:25 CDT Ned Navarrete MD [facility] CPT-53853 Level 3 Est. Patient 17:34:19 CDT Ned Navarrete MD [facility] CPT-67954 Level 3 Est. Patient 13:46:05 CDT Ned Navarrete MD [facility] CPT-76865 Level 3 Est. Patient 16:55:47 [employer] Ned Navarrete MD [facility] CPT-24352 Level 2 Est. Patient 17:33:08 [employer] Ned Navarrete MD [facility] CPT-05857 Level 3 Est. Patient 16:25:26 [employer] Ned Navarrete MD [facility] Procedures Code Procedure Name Date Entry Date Standard Desc ription CPT-25417 Visit 15:57:29 CDT CPT-31688 First Vx - Ix admin via ID I M or jet injects without counseling by physician 15:53:15 CDT CPT-31310 Boostrix Intramuscular Suspension 5-2.5-18.5 201 01/28/11 15:53:14 CDT CPT-64882 Tdap 7yrs or > 14:41:06 CDT CPT-85906 Visit 17:47:08 CDT CPT-97665 OBGTT 1 - LAB USE ONLY 10:15:57 CDT CPT-41834 Venipuncture Draw Fee 10:15:57 CDT CPT-66846 Visit 15:07:16 [employer] CPT-08105 Visit 16:49:41 [employer] CPT-90419 Sono OB limited - XRAY USE ONLY 16:38:01 CS T CPT-21352 Sono OB comp > 14 weeks - XRAY USE ONLY 17:00:59 [employer] CPT-42722 UA w micro - LAB USE ONLY 16:59:38 CDT 2015 CPT-14153 TSH - LAB USE ONLY 16:59:38 CDT CPT-21352 Venipuncture Draw Fee 16:59:38 CDT CPT-39323 Spec Collection and Handling Fee 14:01:24 C DT CPT-90744 Visit 14:01:24 CDT CPT-033 KB Med Screen 14:03:18 CDT CPT-033 KB Med Screen 11:04:57 CDT CPT-033 KB Med Screen 10:29:44 CDT CPT-16860 Administration 2+ single or combination vaccines inc oral 14:02:47 [employer] CPT-86382 Administration single or combination vac cine inc oral 14:02:47 [employer] CPT-35461 Hepatitis A ped/adol 2 dose schedule 14:02:47 [employer] CPT-49503 Gardasil 14:02:47 [employer] CPT-86467 Administration single or combination vac cine inc oral 11:40:38 [employer] CPT-90922 Gardasil 11:40:38 [employer] CPT-91064 Administration single or combination vac cine inc oral 09:45:00 CDT CPT-84327 Influenza Preservative Free split virus >age 3 09:45:00 CDT CPT-74798 Venipuncture Draw Fee 07:59:02 CDT
--- OUTSIDE RECORDS SUMMARY | 2019-10-10 20:47 | XMS REPORT | Clinical Summary ---
Author Author Admin, Son Rodriguez [facility] Address Unknown Phone Unavailable Allergies, Adverse Reactions, [...] condition or complication Methamphetamine abuse 305.70 Inactive [facility] [place] [facility] Amphetamine or related acting [...] 1 herman ly for 3 days PREDNISONE 07781713864 No Longer Active Ned pérez MD Active CEPHALEXIN 500 MG ORAL CAPS CEPHALEXIN 53547292021 No Longer Active Ned Navarrete MD Active LATUDA 20 MG ORAL TABS LURASIDONE HCL 1591329 0230 Active Breanne Madl BEAN PICKER MACHINE OPERATOR Active LORATADINE 10 MG TABS 1 tablet by mouth daily L ORATADINE 71893556265 No Longer Active Breanne Madl BEAN PICKER MACHINE OPERATOR Active HYDROXYZINE HCL 25 MG TABS Take 1-2 tablets daily 2015 HYDROXYZINE HCL 19500668840 No Longer Active Breanne Madl BEAN PICKER MACHINE OPERATOR Active ORTHO TRI-CYCLEN (28) 0.18/0.215/0.25 MG-35 MCG TABS 1 daily NORGESTIM-ETH ESTRAD TRIPHASIC 76967690412 No Longer Active Breanne Madl BEAN PICKER MACHINE OPERATOR Active CLARITIN 10 MG TAB 1 tablet by mouth daily as needed for itchy r khari LORATADINE 33274753933 No Longer Active Ned Navarrete MD Active AUGMENTIN 875-125 MG TAB 1 po BID x 10 days with food AMOXICILLIN-POT CLAVULANATE 89082531205 No Longer Active Toni Washington DO Active ORTHO TRI-CYCLEN (28) 0.18/0.215/0.25 MG-35 MCG TABS 1 daily NORGESTIM-ETH ESTRAD TRIPHASIC 91505631012 No Longer Active Ned Navarrete MD Active ZOFRAN ODT 4 MG TBDP 1 po q6hr PRN Nausea ONDAN SETRON 12623118358 No Longer Active Ned Navarrete MD Active [facility] MEL[facility] 3 MG TABS Take 1 tablet at bedtime. 2013 MELATONIN 15882274626 No Longer Active Ned Navarrete MD Activ e BIOTIN 1000 MCG TABS Take 2 tablets daily BIOTI N 37914473524 No Longer Active Ned Navarrete MD Active OMEPRAZOLE 20 MG CPDR 1 tablet by mouth daily O MEPRAZOLE 49512581693 No Longer Active Mariana Moses APRN Active LATUDA 80 MG TABS 1 tablet daily LURASIDONE HCL 20216861782 No Longer Active Mariana Moses APRN Active ZOVIRAX 400 MG TABS Take 1 tablet every 8 hours as needed 2 ACYCLOVIR 73464046172 No Longer Active Ned Navarrete MD Activ e ZITHROMAX Z-CHACE 250 MG TABS 2 today, then 1 daily for 4 days 201 10/06/11 AZITHROMYCIN 13235392210 No Longer Active Ned Navarrete MD Active TOPAMAX 100 MG TABS 1 tablet daily TOPIRAMATE 54 390715847 No Longer Active Ned Navarrete MD Active AMOXICILLIN 500 MG CAPS 2 po BID x 10 days AMOX ICILLIN 26135433965 No Longer Active Saskia Simon MD PhD Active NAPROSYN 375 MG TAB 1 twice a day as needed for chest pain 04/01 NAPROXEN 12402319994 No Longer Active Saskia Simon MD PhD Active HYDROCORTISONE 2.5 % EXT CREA Apply three times a day to aff ected area HYDROCORTISONE 52561729547 No Longer Active Ned Navarrete MD Active TOPIRAMATE 50 MG TABS 1 QD TOPIRAMATE 66662201434 No Longer Active Ned Navarrete MD Active FANAPT 6 MG TABS 1 BID ILOPERIDONE 10580554769 No L onger Active Ned Navarrete MD Active CIPROFLOXACIN HCL 0.3 % SOLN 1 drop in right eye every 2 hours for 2 days, then 1 drop four times a day CIPROFLOXACIN HCL 08087859051 No Longer Active Ned Navarrete MD Active LORATADINE 10 MG TABS 1 tablet by mouth daily L ORATADINE 36198700505 No Longer Active Ned Navarrete MD Active RANITIDINE HCL 150 MG CAPS 1 twice a day RANITI DINE HCL 43934304325 No Longer Active Ned Navarrete MD Active RANITIDINE HCL 150 MG CAPS 1 twice a day RANITIDINE HCL 150 MG CAPS 692467 RANITIDINE HCL Inactive LORATADINE 10 MG TABS 1 tablet by mouth daily LORATADINE 10 MG TABS 537045 LORATADINE Inactive CIPROFLOXACIN HCL 0.3 % SOLN 1 drop in right eye every 2 hours for 2 days, then 1 drop four times a day CIPROFLOXACIN HCL 0.3 % SOLN 399708 CIPROFLOXACIN HCL Inactive FANAPT 6 MG TABS 1 BID FANAPT 6 MG TABS ILO PERIDONE Inactive TOPIRAMATE 50 MG TABS 1 QD TOPIRAMATE 50 MG TABS 1 49297 TOPIRAMATE Inactive HYDROCORTISONE 2.5 % EXT CREA Apply three times a day to aff ected area HYDROCORTISONE 2.5 % EXT CREA 501420 HYDROCORTIS ONE Inactive NAPROSYN 375 MG TAB 1 twice a day as needed for chest pain 04/01 NAPROSYN 375 MG TAB NAPROXEN Inactive TOPAMAX 100 MG TABS 1 tablet daily TOPAMAX 100 MG TABS 310177 TOPIRAMATE Inactive ZOVIRAX 400 MG TABS Take 1 tablet every 8 hours as needed 2 ZOVIRAX 400 MG TABS 135069 ACYCLOVIR Inactive LATUDA 80 MG TABS 1 tablet daily LATUDA 80 MG TA BS LURASIDONE HCL Inactive OMEPRAZOLE 20 MG CPDR 1 tablet by mouth daily OMEPRAZOLE 20 MG CPDR 738389 OMEPRAZOLE Inactive BIOTIN 1000 MCG TABS Take 2 tablets daily BIOTIN 1000 MCG TABS 573344 BIOTIN Inactive [facility] MEL[facility] 3 MG TABS Take 1 tablet at bedtime. 2013 [facility] MEL[facility] 3 MG TABS 299775 MELATONIN Inactive ZOFRAN ODT 4 MG TBDP 1 po q6hr PRN Nausea ZOFRAN ODT 4 MG TBDP 802259 ONDANSETRON Inactive ORTHO TRI-CYCLEN (28) 0.18/0.215/0.25 MG-35 MCG TABS 1 daily ORTHO TRI-CYCLEN (28) 0.18/0.215/0.25 MG-35 MCG TABS 674110 NORGESTIM-ETH ESTRAD TRIPHASIC Inactive CLARITIN 10 MG TAB 1 tablet by mouth daily as needed for itchy r khari CLARITIN 10 MG TAB 810750 LORATADINE Inactive ORTHO TRI-CYCLEN (28) 0.18/0.215/0.25 MG-35 MCG TABS 1 daily ORTHO TRI-CYCLEN (28) 0.18/0.215/0.25 MG-35 MCG TABS 937193 NORGESTIM-ETH ESTRAD TRIPHASIC Inactive HYDROXYZINE HCL 25 MG TABS Take 1-2 tablets daily 2015 HYDROXYZINE HCL 25 MG TABS 343058 HYDROXYZINE HCL Inactive LORATADINE 10 MG TABS 1 tablet by mouth daily LORATADINE 10 MG TABS 937731 LORATADINE Inactive CEPHALEXIN 500 MG ORAL CAPS CEPHALEX IN 500 MG ORAL CAPS 165174 CEPHALEXIN Inactive PREDNISONE 20 MG TABS Take 2 daily for 3 days and then 1 herman ly for 3 days PREDNISONE 20 MG TABS 764405 PREDNISONE Inacti ve AMOXICILLIN 500 MG CAPS 2 po BID x 10 days AMOXICILLIN 500 MG CAPS 007518 AMOXICILLIN Inactive ZITHROMAX Z-CHACE 250 MG TABS 2 today, then 1 daily for 4 days 201 10/06/11 ZITHROMAX Z-CHACE 250 MG TABS 3568536 AZITHROMYCIN Inac tive AUGMENTIN 875-125 MG TAB 1 po BID x 10 days with food AUGMENTIN 875-125 MG TAB 205300 AMOXICILLIN-POT CLAVULANATE Inactiv e Advance Directives Directive [...] 16 yo)) Fluzone preservative free (>3 yrs.) [[id number]] Influenza, seasonal, injectable, preservative free MPSV4 (meningococcal polysaccharide vaccination) Menactra meningococcal polysaccharide vaccine (MPSV4) hepatitis A immunization #1 Havrix-Pedi hepa titis A vaccine, unspecified formulation Adacel (Tetanus, reduced Diphtheria, and acellular Per tussis Immunization) Adacel [[id number]] tetanus toxoid, reduced diph theria toxoid, and [...] 11 .0-15.0 platelet count 210 THOUSAND/UL 10*3/mm3 085-549 4747/11/02 mean platelet volume 10.3 fL 7.5-11.5 Lab [...] N Encounters Code Encounter Date Provider Facility CPT-14065 Level 3 Est. Patient 15:21:38 POLICY CANCELLATION CLERK Rayna Pepper [facility] CPT-67960 Level 3 Est. Patient 15:35:51 POLICY CANCELLATION CLERK Ned Navarrete MD [facility] CPT-68118 Level 2 Est. Patient 12:43:40 CDT Ned Navarrete MD [facility] CPT-01699 Level 3 Est. Patient 14:38:48 CDT Toni duque DO [facility] CPT-39143 Level 3 Est. Patient 09:02:58 POLICY CANCELLATION CLERK George paulson MD [facility] CPT-86882 Level 3 Est. Patient 17:42:32 CDT Ned Navarrete MD [facility] CPT-07847 Level 3 Est. Patient 11:04:31 POLICY CANCELLATION CLERK Mariana Torrez [facility] CPT-80147 Level 4 Est. Patient 12:27:05 POLICY CANCELLATION CLERK Ned Navarrete MD [facility] CPT-87079 Level 3 Est. Patient 11:31:58 POLICY CANCELLATION CLERK Ned Navarrete MD [facility] CPT-92286 Level 3 Est. Patient 16:49:32 CDT Ned Navarrete MD [facility] CPT-34519 Level 4 Est. Patient 14:11:59 POLICY CANCELLATION CLERK Saskia green MD PhD [facility] CPT-40790 Level 3 Est. Patient 17:34:25 CDT Ned Navarrete MD [facility] CPT-89483 Level 3 Est. Patient 17:34:19 CDT Ned Navarrete MD [facility] CPT-24386 Level 3 Est. Patient 13:46:05 CDT Ned Navarrete MD [facility] CPT-62654 Level 3 Est. Patient 16:55:47 POLICY CANCELLATION CLERK Ned Navarrete MD [facility] CPT-25479 Level 2 Est. Patient 17:33:08 POLICY CANCELLATION CLERK Ned Navarrete MD [facility] CPT-59346 Level 3 Est. Patient 16:25:26 POLICY CANCELLATION CLERK Ned Navarrete MD [facility] Procedures Code Procedure Name Date Entry Date Standard Desc ription CPT-35649 Visit 15:57:29 CDT CPT-49703 First Vx - Ix admin via ID I M or jet injects without counseling by physician 15:53:15 CDT CPT-39602 Boostrix Intramuscular Suspension 5-2.5-18.5 201 01/28/11 15:53:14 CDT CPT-26206 Tdap 7yrs or > 14:41:06 CDT CPT-17199 Visit 17:47:08 CDT CPT-85717 OBGTT 1 - LAB USE ONLY 10:15:57 CDT CPT-11386 Venipuncture Draw Fee 10:15:57 CDT CPT-59845 Visit 15:07:16 POLICY CANCELLATION CLERK CPT-69598 Visit 16:49:41 POLICY CANCELLATION CLERK CPT-22252 Sono OB limited - XRAY USE ONLY 16:38:01 CS T CPT-81482 Sono OB comp > 14 weeks - XRAY USE ONLY 17:00:59 POLICY CANCELLATION CLERK CPT-95640 UA w micro - LAB USE ONLY 16:59:38 CDT 2015 CPT-05266 TSH - LAB USE ONLY 16:59:38 CDT CPT-74683 Venipuncture Draw Fee 16:59:38 CDT CPT-10961 Spec Collection and Handling Fee 14:01:24 C DT CPT-46988 Visit 14:01:24 CDT CPT-033 KB Med Screen 14:03:18 CDT CPT-033 KB Med Screen 11:04:57 CDT CPT-033 KB Med Screen 10:29:44 CDT CPT-13308 Administration 2+ single or combination vaccines inc oral 14:02:47 POLICY CANCELLATION CLERK CPT-24975 Administration single or combination vac cine inc oral 14:02:47 POLICY CANCELLATION CLERK CPT-40617 Hepatitis A ped/adol 2 dose schedule 14:02:47 POLICY CANCELLATION CLERK CPT-19680 Gardasil 14:02:47 POLICY CANCELLATION CLERK CPT-05839 Administration single or combination vac cine inc oral 11:40:38 POLICY CANCELLATION CLERK CPT-27298 Gardasil 11:40:38 POLICY CANCELLATION CLERK CPT-00106 Administration single or combination vac cine inc oral 09:45:00 CDT CPT-25437 Influenza Preservative Free split virus >age 3 09:45:00 CDT CPT-48947 Venipuncture Draw Fee 07:59:02 CDT
--- OUTSIDE RECORDS SUMMARY | 2019-10-10 20:47 | XMS REPORT | Clinical Summary ---
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 LORATADINE 10 MG TABS 1 tablet by mouth daily L ORATADINE 80622508995 No Longer Active 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 HYDROXYZINE HCL 25 MG TABS Take 1-2 tablets daily 2015 HYDROXYZINE HCL 77938311155 No Longer Active 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 ORTHO TRI-CYCLEN (28) 0.18/0.215/0.25 MG-35 MCG TABS 1 daily NORGESTIM-ETH ESTRAD TRIPHASIC 68282865342 No Longer Active 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 2013 MELATONIN 54964790375 No Longer Active Ned Navarrete MD Activ e BIOTIN 1000 MCG TABS Take 2 tablets daily BIOTI N 50219823900 No Longer Active Ned Navarrete MD Active OMEPRAZOLE 20 MG CPDR 1 tablet by mouth daily O MEPRAZOLE 99149086724 No Longer Active Mariana Moses APRN Active LATUDA 80 MG TABS 1 tablet daily LURASIDONE HCL 58346410177 No Longer Active Mariana Moses APRN Active ZOVIRAX 400 MG TABS Take 1 tablet every 8 hours as needed 2 ACYCLOVIR 95478695689 No Longer Active Ned Navarrete MD Activ e ZITHROMAX Z-CHACE 250 MG TABS 2 today, then 1 daily for 4 days 201 10/06/11 AZITHROMYCIN 48746577207 No Longer Active Ned Navarrete MD Active TOPAMAX 100 MG TABS 1 tablet daily TOPIRAMATE 54 252778008 No Longer Active Ned Navarrete MD Active AMOXICILLIN 500 MG CAPS 2 po BID x 10 days AMOX ICILLIN 35191789526 No Longer Active Saskia Simon MD PhD Active NAPROSYN 375 MG TAB 1 twice a day as needed for chest pain 04/01 NAPROXEN 70185127282 No Longer Active Saskia Simon MD PhD Active HYDROCORTISONE 2.5 % EXT CREA Apply three times a day to aff ected area HYDROCORTISONE 45641355040 No Longer Active Ned Navarrete MD Active TOPIRAMATE 50 MG TABS 1 QD TOPIRAMATE 51910107143 No Longer Active Ned Navarrete MD Active FANAPT 6 MG TABS 1 BID ILOPERIDONE 10017427705 No L onger Active Ned Navarrete MD Active CIPROFLOXACIN HCL 0.3 % SOLN 1 drop in right eye every 2 hours for 2 days, then 1 drop four times a day CIPROFLOXACIN HCL 70646145082 No Longer Active Ned Navarrete MD Active LORATADINE 10 MG TABS 1 tablet by mouth daily L ORATADINE 80219893619 No Longer Active Ned Navarrete MD Active RANITIDINE HCL 150 MG CAPS 1 twice a day RANITI DINE HCL 08851352427 No Longer Active Ned Navarrete MD Active RANITIDINE HCL 150 MG CAPS 1 twice a day RANITIDINE HCL 150 MG CAPS 813312 RANITIDINE HCL Inactive LORATADINE 10 MG TABS 1 tablet by mouth daily LORATADINE 10 MG TABS 998310 LORATADINE Inactive CIPROFLOXACIN HCL 0.3 % SOLN 1 drop in right eye every 2 hours for 2 days, then 1 drop four times a day CIPROFLOXACIN HCL 0.3 % SOLN 108160 CIPROFLOXACIN HCL Inactive FANAPT 6 MG TABS 1 BID FANAPT 6 MG TABS ILO PERIDONE Inactive TOPIRAMATE 50 MG TABS 1 QD TOPIRAMATE 50 MG TABS 1 14979 TOPIRAMATE Inactive HYDROCORTISONE 2.5 % EXT CREA Apply three times a day to aff ected area HYDROCORTISONE 2.5 % EXT CREA 973716 HYDROCORTIS ONE Inactive NAPROSYN 375 MG TAB 1 twice a day as needed for chest pain 04/01 NAPROSYN 375 MG TAB NAPROXEN Inactive TOPAMAX 100 MG TABS 1 tablet daily TOPAMAX 100 MG TABS 406475 TOPIRAMATE Inactive ZOVIRAX 400 MG TABS Take 1 tablet every 8 hours as needed 2 ZOVIRAX 400 MG TABS 591762 ACYCLOVIR Inactive LATUDA 80 MG TABS 1 tablet daily LATUDA 80 MG TA BS LURASIDONE HCL Inactive OMEPRAZOLE 20 MG CPDR 1 tablet by mouth daily OMEPRAZOLE 20 MG CPDR 487962 OMEPRAZOLE Inactive BIOTIN 1000 MCG TABS Take 2 tablets daily BIOTIN 1000 MCG TABS 304676 BIOTIN Inactive [facility] M[facility]IN 3 MG TABS Take 1 tablet at bedtime. 2013 [facility] MEL[facility]IN 3 MG TABS 686915 MELATONIN Inactive ZOFRAN ODT 4 MG TBDP 1 po q6hr PRN Nausea ZOFRAN ODT 4 MG TBDP 369862 ONDANSETRON Inactive ORTHO TRI-CYCLEN (28) 0.18/0.215/0.25 MG-35 MCG TABS 1 daily ORTHO TRI-CYCLEN (28) 0.18/0.215/0.25 MG-35 MCG TABS 573688 NORGESTIM-ETH ESTRAD TRIPHASIC Inactive CLARITIN 10 MG TAB 1 tablet by mouth daily as needed for itchy r khari CLARITIN 10 MG TAB 006625 LORATADINE Inactive ORTHO TRI-CYCLEN (28) 0.18/0.215/0.25 MG-35 MCG TABS 1 daily ORTHO TRI-CYCLEN (28) 0.18/0.215/0.25 MG-35 MCG TABS 589320 NORGESTIM-ETH ESTRAD TRIPHASIC Inactive HYDROXYZINE HCL 25 MG TABS Take 1-2 tablets daily 2015 HYDROXYZINE HCL 25 MG TABS 370833 HYDROXYZINE HCL Inactive LORATADINE 10 MG TABS 1 tablet by mouth daily LORATADINE 10 MG TABS 483227 LORATADINE Inactive CEPHALEXIN 500 MG ORAL CAPS CEPHALEX IN 500 MG ORAL CAPS 892211 CEPHALEXIN Inactive PREDNISONE 20 MG TABS Take 2 daily for 3 days and then 1 herman ly for 3 days PREDNISONE 20 MG TABS 298987 PREDNISONE Inacti ve AMOXICILLIN 500 MG CAPS 2 po BID x 10 days AMOXICILLIN 500 MG CAPS 750906 AMOXICILLIN Inactive ZITHROMAX Z-CHACE 250 MG TABS 2 today, then 1 daily for 4 days 201 10/06/11 ZITHROMAX Z-CHACE 250 MG TABS 0465214 AZITHROMYCIN Inac tive AUGMENTIN 875-125 MG TAB 1 po BID x 10 days with food AUGMENTIN 875-125 MG TAB 601756 AMOXICILLIN-POT CLAVULANATE Inactiv e Advance Directives Directive [...] 18 yo)) Fluzone preservative free (>3 yrs.) [[id number]] Influenza, seasonal, injectable, preservative free MPSV4 (meningococcal polysaccharide vaccination) Menactra meningococcal polysaccharide vaccine (MPSV4) hepatitis A immunization #1 Havrix-Pedi hepa titis A vaccine, unspecified formulation Adacel (Tetanus, reduced Diphtheria, and acellular Per tussis Immunization) Adacel [[id number]] tetanus toxoid, reduced diph theria toxoid, and [...] 11 .0-15.0 platelet count 210 THOUSAND/UL 10*3/mm3 442-826 1424/11/02 mean platelet volume 10.3 fL 7.5-11.5 Lab [...] N Encounters Code Encounter Date Provider Facility CPT-32961 Level 3 Est. Patient 15:21:38 MARINE STRUCTURAL WELDER Rayna Pepper APRN [facility] CPT-81697 Level 3 Est. Patient 15:35:51 MARINE STRUCTURAL WELDER Ned Navarrete MD [facility] CPT-91017 Level 2 Est. Patient 12:43:40 CDT Ned Navarrete MD [facility] CPT-47741 Level 3 Est. Patient 14:38:48 CDT Toni duque DO [facility] CPT-90196 Level 3 Est. Patient 09:02:58 MARINE STRUCTURAL WELDER George paulson MD [facility] CPT-69550 Level 3 Est. Patient 17:42:32 CDT Nde Navarrete MD [facility] CPT-83662 Level 3 Est. Patient 11:04:31 MARINE STRUCTURAL WELDER Mariana Torrez ALEXIS [facility] CPT-69439 Level 4 Est. Patient 12:27:05 MARINE STRUCTURAL WELDER Ned Navarrete MD [facility] CPT-34101 Level 3 Est. Patient 11:31:58 MARINE STRUCTURAL WELDER Ned Navarrete MD [facility] CPT-77297 Level 3 Est. Patient 16:49:32 CDT Ned Navarrete MD [facility] CPT-30273 Level 4 Est. Patient 14:11:59 MARINE STRUCTURAL WELDER Saskia green MD PhD [facility] CPT-48577 Level 3 Est. Patient 17:34:25 CDT Ned Navarrete MD [facility] CPT-40147 Level 3 Est. Patient 17:34:19 CDT Ned Navarrete MD [facility] CPT-60453 Level 3 Est. Patient 13:46:05 CDT Ned Navarrete MD [facility] CPT-30934 Level 3 Est. Patient 16:55:47 MARINE STRUCTURAL WELDER Ned Navarrete MD [facility] CPT-83101 Level 2 Est. Patient 17:33:08 MARINE STRUCTURAL WELDER Ned Navarrete MD [facility] CPT-87782 Level 3 Est. Patient 16:25:26 MARINE STRUCTURAL WELDER Ned Navarrete MD [facility] Procedures Code Procedure Name Date Entry Date Standard Desc ription CPT-26208 Visit 15:07:16 MARINE STRUCTURAL WELDER CPT-67224 Visit 16:49:41 MARINE STRUCTURAL WELDER CPT-22962 Sono OB limited - XRAY USE ONLY 16:38:01 CS T CPT-99033 Sono OB comp > 14 weeks - XRAY USE ONLY 17:00:59 MARINE STRUCTURAL WELDER CPT-13502 UA w micro - LAB USE ONLY 16:59:38 CDT 2015 CPT-03191 TSH - LAB USE ONLY 16:59:38 CDT CPT-33524 Venipuncture Draw Fee 16:59:38 CDT CPT-41661 Spec Collection and Handling Fee 14:01:24 C DT CPT-86935 Visit 14:01:24 CDT CPT-033 KB Med Screen 14:03:18 CDT CPT-033 KB Med Screen 11:04:57 CDT CPT-033 KB Med Screen 10:29:44 CDT CPT-23388 Administration 2+ single or combination vaccines inc oral 14:02:47 MARINE STRUCTURAL WELDER CPT-23973 Administration single or combination vac cine inc oral 14:02:47 MARINE STRUCTURAL WELDER CPT-67959 Hepatitis A ped/adol 2 dose schedule 14:02:47 MARINE STRUCTURAL WELDER CPT-23517 Gardasil 14:02:47 MARINE STRUCTURAL WELDER CPT-32366 Administration single or combination vac cine inc oral 11:40:38 MARINE STRUCTURAL WELDER CPT-38397 Gardasil 11:40:38 MARINE STRUCTURAL WELDER CPT-92864 Administration single or combination vac cine inc oral 09:45:00 CDT CPT-18716 Influenza Preservative Free split virus >age 3 09:45:00 CDT CPT-88804 Venipuncture Draw Fee 07:59:02 CDT
--- OUTSIDE RECORDS SUMMARY | 2019-10-10 20:48 | XMS REPORT | Clinical Summary ---
Author Author Admin, Son Rodriguez [facility] Address Unknown Phone Unavailable Allergies, Adverse Reactions, [...] as needed for itchy r khari LORATADINE 21553616502 No Longer Active Ned Navarrete MD Active AUGMENTIN 875-125 MG TAB 1 po BID x 10 days with food AMOXICILLIN-POT CLAVULANATE 24513775503 No Longer Active Toni Washington DO Active ORTHO TRI-CYCLEN (28) 0.18/0.215/0.25 MG-35 MCG TABS 1 daily 2 NORGESTIM-ETH ESTRAD TRIPHASIC 12363165027 Active Leana Bowles Active ORTHO TRI-CYCLEN (28) 0.18/0.215/0.25 MG-35 MCG TABS 1 daily NORGESTIM-ETH ESTRAD TRIPHASIC 40977726065 No Longer Active Ned Navarrete MD Active ZOFRAN ODT 4 MG TBDP 1 po q6hr PRN Nausea ONDAN SETRON 23525638402 No Longer Active Ned Navarrete MD Active [facility] MELAT[facility] 3 MG TABS Take 1 tablet at bedtime. 2013 MELATONIN 30282596916 No Longer Active Ned Navarrete MD Activ e BIOTIN 1000 MCG TABS Take 2 tablets daily BIOTI N 29655542918 No Longer Active Ned Navarrete MD Active OMEPRAZOLE 20 MG CPDR 1 tablet by mouth daily O MEPRAZOLE 20244821578 No Longer Active Mariana Moses APRN Active LATUDA 80 MG TABS 1 tablet daily LURASIDONE HCL 03661702721 No Longer Active Mariana Moses APRN Active ZOVIRAX 400 MG TABS Take 1 tablet every 8 hours as needed 2 ACYCLOVIR 39959492367 No Longer Active Ned Navarrete MD Activ e ZITHROMAX Z-CHACE 250 MG TABS 2 today, then 1 daily for 4 days 201 10/06/11 AZITHROMYCIN 90805570960 No Longer Active Ned Navarrete MD Active HYDROXYZINE HCL 25 MG TABS Take 1-2 tablets daily HYDROXYZINE HCL 81103481729 Active Ned Navarrete MD Active TOPAMAX 100 MG TABS 1 tablet daily TOPIRAMATE 54 784180311 No Longer Active Ned Navarrete MD Active AMOXICILLIN 500 MG CAPS 2 po BID x 10 days AMOX ICILLIN 28127373390 No Longer Active Saskia Simon MD PhD Active NAPROSYN 375 MG TAB 1 twice a day as needed for chest pain 04/01 NAPROXEN 62010307667 No Longer Active Saskia Simon MD PhD Active HYDROCORTISONE 2.5 % EXT CREA Apply three times a day to aff ected area HYDROCORTISONE 66296691207 No Longer Active Ned Navarrete MD Active LORATADINE 10 MG TABS 1 tablet by mouth daily L ORATADINE 96525910579 Active Crystal Bowles Active TOPIRAMATE 50 MG TABS 1 QD TOPIRAMATE 64219403035 No Longer Active Ned Navarrete MD Active FANAPT 6 MG TABS 1 BID ILOPERIDONE 60384517456 No L onger Active Ned Navarrete MD Active CIPROFLOXACIN HCL 0.3 % SOLN 1 drop in right eye every 2 hours for 2 days, then 1 drop four times a day CIPROFLOXACIN HCL 66216018260 No Longer Active Ned Navarrete MD Active LORATADINE 10 MG TABS 1 tablet by mouth daily L ORATADINE 52981152061 No Longer Active Ned Navarrete MD Active RANITIDINE HCL 150 MG CAPS 1 twice a day RANITI DINE HCL 70373480650 No Longer Active Ned Navarrete MD Active RANITIDINE HCL 150 MG CAPS 1 twice a day RANITIDINE HCL 150 MG CAPS 273773 RANITIDINE HCL Inactive LORATADINE 10 MG TABS 1 tablet by mouth daily LORATADINE 10 MG TABS 050083 LORATADINE Inactive CIPROFLOXACIN HCL 0.3 % SOLN 1 drop in right eye every 2 hours for 2 days, then 1 drop four times a day CIPROFLOXACIN HCL 0.3 % SOLN 276428 CIPROFLOXACIN HCL Inactive FANAPT 6 MG TABS 1 BID FANAPT 6 MG TABS ILO PERIDONE Inactive TOPIRAMATE 50 MG TABS 1 QD TOPIRAMATE 50 MG TABS 1 51765 TOPIRAMATE Inactive HYDROCORTISONE 2.5 % EXT CREA Apply three times a day to aff ected area HYDROCORTISONE 2.5 % EXT CREA 357514 HYDROCORTIS ONE Inactive NAPROSYN 375 MG TAB 1 twice a day as needed for chest pain 04/01 NAPROSYN 375 MG TAB NAPROXEN Inactive TOPAMAX 100 MG TABS 1 tablet daily TOPAMAX 100 MG TABS 297942 TOPIRAMATE Inactive ZOVIRAX 400 MG TABS Take 1 tablet every 8 hours as needed ZOVIRAX 400 MG TABS 19720728 ACYCLOVIR Inactive LATUDA 80 MG TABS 1 tablet daily LATUDA 80 MG TA BS LURASIDONE HCL Inactive OMEPRAZOLE 20 MG CPDR 1 tablet by mouth daily OMEPRAZOLE 20 MG CPDR 420606 OMEPRAZOLE Inactive BIOTIN 1000 MCG TABS Take 2 tablets daily BIOTIN 1000 MCG TABS 289159 BIOTIN Inactive [facility] MEL[facility] 3 MG TABS Take 1 tablet at bedtime. 2013 [facility] MEL[facility] 3 MG TABS 950273 MELATONIN Inactive ZOFRAN ODT 4 MG TBDP 1 po q6hr PRN Nausea ZOFRAN ODT 4 MG TBDP 062012 ONDANSETRON Inactive ORTHO TRI-CYCLEN (28) 0.18/0.215/0.25 MG-35 MCG TABS 1 daily ORTHO TRI-CYCLEN (28) 0.18/0.215/0.25 MG-35 MCG TABS 743319 NORGESTIM-ETH ESTRAD TRIPHASIC Inactive CLARITIN 10 MG TAB 1 tablet by mouth daily as needed for itchy r khari CLARITIN 10 MG TAB 244895 LORATADINE Inactive AMOXICILLIN 500 MG CAPS 2 po BID x 10 days AMOXICILLIN 500 MG CAPS 498969 AMOXICILLIN Inactive ZITHROMAX Z-CHACE 250 MG TABS 2 today, then 1 daily for 4 days 201 10/06/11 ZITHROMAX Z-CHACE 250 MG TABS 9417455 AZITHROMYCIN Inac tive AUGMENTIN 875-125 MG TAB 1 po BID x 10 days with food AUGMENTIN 875-125 MG TAB 803811 AMOXICILLIN-POT CLAVULANATE Inactiv e Advance Directives Directive [...] 18 yo)) Fluzone preservative free (>3 yrs.) [[id number]] Influenza, seasonal, injectable, preservative free MPSV4 (meningococcal polysaccharide vaccination) Menactra meningococcal polysaccharide vaccine (MPSV4) hepatitis A immunization #1 Havrix-Pedi hepa titis A vaccine, unspecified formulation Adacel (Tetanus, reduced Diphtheria, and acellular Per tussis Immunization) Adacel [[id number]] tetanus toxoid, reduced diph theria toxoid, and [...] Measured Encounters Code Encounter Date Provider Facility CPT-20753 Level 3 Est. Patient 14:38:48 CDT Toni duque DO [facility] CPT-16214 Level 3 Est. Patient 09:02:58 DIGITAL DIRECTOR George paulson MD [facility] CPT-66298 Level 3 Est. Patient 17:42:32 CDT Ned Navarrete MD [facility] CPT-06610 Level 3 Est. Patient 11:04:31 DIGITAL DIRECTOR Mariana Torrez APRN [facility] CPT-69067 Level 4 Est. Patient 12:27:05 DIGITAL DIRECTOR Ned Navarrete MD [facility] CPT-34322 Level 3 Est. Patient 11:31:58 DIGITAL DIRECTOR Ned Navarrete MD [facility] CPT-07672 Level 3 Est. Patient 16:49:32 CDT Ned Navarrete MD [facility] CPT-68618 Level 4 Est. Patient 14:11:59 DIGITAL DIRECTOR Saskia green MD PhD [facility] CPT-23672 Level 3 Est. Patient 17:34:25 CDT Ned Navarrete MD [facility] CPT-54909 Level 3 Est. Patient 17:34:19 CDT Ned Navarrete MD [facility] CPT-23716 Level 3 Est. Patient 13:46:05 CDT Ned Navarrete MD [facility] CPT-07909 Level 3 Est. Patient 16:55:47 DIGITAL DIRECTOR Ned Navarrete MD [facility] CPT-59767 Level 2 Est. Patient 17:33:08 DIGITAL DIRECTOR Ned Navarrete MD [facility] CPT-40233 Level 3 Est. Patient 16:25:26 DIGITAL DIRECTOR Ned Navarrete MD [facility] Procedures Code Procedure Name Date Entry Date Standard Desc ription [facility]PT[facility] Screen 14:03:18 CDT [facility]PT[facility] Med Screen 11:04:57 CDT CPT-[facility] Med Screen 10:29:44 CDT CPT-50919 Administration 2+ single or combination vaccines inc oral 14:02:47 DIGITAL DIRECTOR CPT-85101 Administration single or combination vac cine inc oral 14:02:47 DIGITAL DIRECTOR CPT-93012 Hepatitis A ped/adol 2 dose schedule 14:02:47 DIGITAL DIRECTOR CPT-68892 Gardasil 14:02:47 DIGITAL DIRECTOR CPT-76854 Administration single or combination vac cine inc oral 11:40:38 DIGITAL DIRECTOR CPT-38969 Gardasil 11:40:38 DIGITAL DIRECTOR CPT-43817 Administration single or combination vac cine inc oral 09:45:00 CDT CPT-75740 Influenza Preservative Free split virus >age 3 09:45:00 CDT CPT-33016 Venipuncture Draw Fee 07:59:02 CDT
--- OUTSIDE RECORDS SUMMARY | 2019-10-10 20:48 | XMS REPORT | Clinical Summary ---
Author Author Admin, Son Chan Organization [facility] Address Unknown Phone Unavailable Allergies, Adverse Reactions, [...] 1 [address] for 3 days PREDNISONE 22366077972 Active Ned Navarrete MD Active CEPHALEXIN 500 MG ORAL CAPS CEPHALEXIN 08303234944 No Longer Active Ned Navarrete MD Active LATUDA 20 MG ORAL TABS LURASIDONE HCL 9847997 0230 Active Breanne Madl CONSTRUCTION TECH Active LORATADINE 10 MG TABS 1 tablet by mouth daily L ORATADINE 04546257250 No Longer Active Breanne Madl CONSTRUCTION TECH Active HYDROXYZINE HCL 25 MG TABS Take 1-2 tablets daily 2015 HYDROXYZINE HCL 24911413629 No Longer Active Breanne Madl CONSTRUCTION TECH Active ORTHO TRI-CYCLEN (28) 0.18/0.215/0.25 MG-35 MCG TABS 1 daily NORGESTIM-ETH ESTRAD TRIPHASIC 19412788267 No Longer Active Breanne Madl CONSTRUCTION TECH Active CLARITIN 10 MG TAB 1 tablet by mouth daily as needed for itchy r khari LORATADINE 51897234100 No Longer Active Ned Navarrete MD Active AUGMENTIN 875-125 MG TAB 1 po BID x 10 days with food AMOXICILLIN-POT CLAVULANATE 56549425341 No Longer Active Toni Washington DO Active ORTHO TRI-CYCLEN (28) 0.18/0.215/0.25 MG-35 MCG TABS 1 daily NORGESTIM-ETH ESTRAD TRIPHASIC 68827462970 No Longer Active Ned Navarrete MD Active ZOFRAN ODT 4 MG TBDP 1 po q6hr PRN Nausea ONDAN SETRON 65444086775 No Longer Active Ned Navarrete MD Active [facility] MEL[facility] 3 MG TABS Take 1 tablet at bedtime. 2013 MELATONIN 80951378066 No Longer Active Ned Navarrete MD Activ e BIOTIN 1000 MCG TABS Take 2 tablets daily BIOTI N 85294493491 No Longer Active Ned Navarrete MD Active OMEPRAZOLE 20 MG CPDR 1 tablet by mouth daily O MEPRAZOLE 99577746725 No Longer Active Mariana Moses APRN Active LATUDA 80 MG TABS 1 tablet daily LURASIDONE HCL 02848290228 No Longer Active Mariana Moses APRN Active ZOVIRAX 400 MG TABS Take 1 tablet every 8 hours as needed 2 ACYCLOVIR 98800508336 No Longer Active Ned Navarrete MD Activ e ZITHROMAX Z-CHACE 250 MG TABS 2 today, then 1 daily for 4 days 201 10/06/11 AZITHROMYCIN 03941861197 No Longer Active Ned Navarrete MD Active TOPAMAX 100 MG TABS 1 tablet daily TOPIRAMATE 54 454551094 No Longer Active Ned Navarrete MD Active AMOXICILLIN 500 MG CAPS 2 po BID x 10 days AMOX ICILLIN 38099260126 No Longer Active Saskia Simon MD PhD Active NAPROSYN 375 MG TAB 1 twice a day as needed for chest pain 04/01 NAPROXEN 54867477445 No Longer Active Saskia Simon MD PhD Active HYDROCORTISONE 2.5 % EXT CREA Apply three times a day to aff ected area HYDROCORTISONE 52261845951 No Longer Active Ned Navarrete MD Active TOPIRAMATE 50 MG TABS 1 QD TOPIRAMATE 31987179920 No Longer Active Ned Navarrete MD Active FANAPT 6 MG TABS 1 BID ILOPERIDONE 40508336891 No L onger Active Ned Navarrete MD Active CIPROFLOXACIN HCL 0.3 % SOLN 1 drop in right eye every 2 hours for 2 days, then 1 drop four times a day CIPROFLOXACIN HCL 90112385596 No Longer Active Ned Navarrete MD Active LORATADINE 10 MG TABS 1 tablet by mouth daily L ORATADINE 24318420058 No Longer Active Ned Navarrete MD Active RANITIDINE HCL 150 MG CAPS 1 twice a day RANITI DINE HCL 56723565383 No Longer Active Ned Navarrete MD Active RANITIDINE HCL 150 MG CAPS 1 twice a day RANITIDINE HCL 150 MG CAPS 737885 RANITIDINE HCL Inactive LORATADINE 10 MG TABS 1 tablet by mouth daily LORATADINE 10 MG TABS 011580 LORATADINE Inactive CIPROFLOXACIN HCL 0.3 % SOLN 1 drop in right eye every 2 hours for 2 days, then 1 drop four times a day CIPROFLOXACIN HCL 0.3 % SOLN 149785 CIPROFLOXACIN HCL Inactive FANAPT 6 MG TABS 1 BID FANAPT 6 MG TABS ILO PERIDONE Inactive TOPIRAMATE 50 MG TABS 1 QD TOPIRAMATE 50 MG TABS 1 08063 TOPIRAMATE Inactive HYDROCORTISONE 2.5 % EXT CREA Apply three times a day to aff ected area HYDROCORTISONE 2.5 % EXT CREA 491442 HYDROCORTIS ONE Inactive NAPROSYN 375 MG TAB 1 twice a day as needed for chest pain 04/01 NAPROSYN 375 MG TAB NAPROXEN Inactive TOPAMAX 100 MG TABS 1 tablet daily TOPAMAX 100 MG TABS 039955 TOPIRAMATE Inactive ZOVIRAX 400 MG TABS Take 1 tablet every 8 hours as needed 2 ZOVIRAX 400 MG TABS 719660 ACYCLOVIR Inactive LATUDA 80 MG TABS 1 tablet daily LATUDA 80 MG TA BS LURASIDONE HCL Inactive OMEPRAZOLE 20 MG CPDR 1 tablet by mouth daily OMEPRAZOLE 20 MG CPDR 161515 OMEPRAZOLE Inactive BIOTIN 1000 MCG TABS Take 2 tablets daily BIOTIN 1000 MCG TABS 910983 BIOTIN Inactive [facility] M[facility] 3 MG TABS Take 1 tablet at bedtime. 2013 [facility] M[facility] 3 MG TABS 525049 MELATONIN Inactive ZOFRAN ODT 4 MG TBDP 1 po q6hr PRN Nausea ZOFRAN ODT 4 MG TBDP 812737 ONDANSETRON Inactive ORTHO TRI-CYCLEN (28) 0.18/0.215/0.25 MG-35 MCG TABS 1 daily ORTHO TRI-CYCLEN (28) 0.18/0.215/0.25 MG-35 MCG TABS 192810 NORGESTIM-ETH ESTRAD TRIPHASIC Inactive CLARITIN 10 MG TAB 1 tablet by mouth daily as needed for itchy r khari CLARITIN 10 MG TAB 558051 LORATADINE Inactive ORTHO TRI-CYCLEN (28) 0.18/0.215/0.25 MG-35 MCG TABS 1 daily ORTHO TRI-CYCLEN (28) 0.18/0.215/0.25 MG-35 MCG TABS 016138 NORGESTIM-ETH ESTRAD TRIPHASIC Inactive HYDROXYZINE HCL 25 MG TABS Take 1-2 tablets daily 2015 HYDROXYZINE HCL 25 MG TABS 859941 HYDROXYZINE HCL Inactive LORATADINE 10 MG TABS 1 tablet by mouth daily LORATADINE 10 MG TABS 272414 LORATADINE Inactive CEPHALEXIN 500 MG ORAL CAPS CEPHALEX IN 500 MG ORAL CAPS 892381 CEPHALEXIN Inactive AMOXICILLIN 500 MG CAPS 2 po BID x 10 days AMOXICILLIN 500 MG CAPS 544052 AMOXICILLIN Inactive ZITHROMAX Z-CHACE 250 MG TABS 2 today, then 1 daily for 4 days 201 10/06/11 ZITHROMAX Z-CHACE 250 MG TABS 5097632 AZITHROMYCIN Inac tive AUGMENTIN 875-125 MG TAB 1 po BID x 10 days with food AUGMENTIN 875-125 MG TAB 357205 AMOXICILLIN-POT CLAVULANATE Inactiv e Advance Directives Directive [...] 16 yo)) Fluzone preservative free (>3 yrs.) [[id number]] Influenza, seasonal, injectable, preservative free MPSV4 (meningococcal polysaccharide vaccination) Menactra meningococcal polysaccharide vaccine (MPSV4) hepatitis A immunization #1 Havrix-Pedi hepa titis A vaccine, unspecified formulation Adacel (Tetanus, reduced Diphtheria, and acellular Per tussis Immunization) Adacel [[id number]] tetanus toxoid, reduced diph theria toxoid, and [...] 11 .0-15.0 platelet count 210 THOUSAND/UL 10*3/mm3 529-606 6560/11/02 mean platelet volume 10.3 fL 7.5-11.5 Lab [...] ative Encounters Code Encounter Date Provider Facility CPT-14275 Level 3 Est. Patient 15:35:51 PLATE DEVELOPER Ned Navarrete MD [facility] CPT-98550 Level 2 Est. Patient 12:43:40 CDT Ned Navarrete MD [facility]-25827 Level 3 Est. Patient 14:38:48 CDT Toni duque DO [facility]-23811 Level 3 Est. Patient 09:02:58 PLATE DEVELOPER George paulson MD [facility] CPT-07564 Level 3 Est. Patient 17:42:32 CDT Ned Navarrete MD [facility]-03438 Level 3 Est. Patient 11:04:31 PLATE DEVELOPER Mariana Torrez APRN [facility] CPT-73711 Level 4 Est. Patient 12:27:05 PLATE DEVELOPER Ned Navarrete MD [facility]-08958 Level 3 Est. Patient 11:31:58 PLATE DEVELOPER Ned Navarrete MD [facility] CPT-65052 Level 3 Est. Patient 16:49:32 CDT Ned Navarrete MD [facility]-91109 Level 4 Est. Patient 14:11:59 PLATE DEVELOPER Saskia green MD PhD [facility] CPT-23407 Level 3 Est. Patient 17:34:25 CDT Ned Navarrete MD [facility]-55837 Level 3 Est. Patient 17:34:19 CDT Ned Navarrete MD [facility] CPT-97673 Level 3 Est. Patient 13:46:05 CDT Ned Navarrete MD [facility] CPT-76774 Level 3 Est. Patient 16:55:47 PLATE DEVELOPER Ned Navarrete MD [facility] CPT-48878 Level 2 Est. Patient 17:33:08 PLATE DEVELOPER Ned Navarrete MD [facility] CPT-24523 Level 3 Est. Patient 16:25:26 PLATE DEVELOPER Ned Navarrete MD [facility] Procedures Code Procedure Name Date Entry Date Standard Desc ription CPT-23584 Visit 16:49:41 PLATE DEVELOPER CPT-76171 Sono OB limited - XRAY USE ONLY 16:38:01 CS T CPT-91591 Sono OB comp > 14 weeks - XRAY USE ONLY 17:00:59 PLATE DEVELOPER CPT-45758 UA w micro - LAB USE ONLY 16:59:38 CDT 2015 CPT-74631 TSH - LAB USE ONLY 16:59:38 CDT CPT-09459 Venipuncture Draw Fee 16:59:38 CDT CPT-92035 Spec Collection and Handling Fee 14:01:24 C DT CPT-99039 Visit 14:01:24 CDT CPT-033 KB Med Screen 14:03:18 CDT CPT-033 KB Med Screen 11:04:57 CDT CPT-033 KB Med Screen 10:29:44 CDT CPT-07031 Administration 2+ single or combination vaccines inc oral 14:02:47 PLATE DEVELOPER CPT-55025 Administration single or combination vac cine inc oral 14:02:47 PLATE DEVELOPER CPT-80173 Hepatitis A ped/adol 2 dose schedule 14:02:47 PLATE DEVELOPER CPT-03740 Gardasil 14:02:47 PLATE DEVELOPER CPT-30230 Administration single or combination vac cine inc oral 11:40:38 PLATE DEVELOPER CPT-66801 Gardasil 11:40:38 PLATE DEVELOPER CPT-46912 Administration single or combination vac cine inc oral 09:45:00 CDT CPT-87985 Influenza Preservative Free split virus >age 3 09:45:00 CDT CPT-09875 Venipuncture Draw Fee 07:59:02 CDT
--- OUTSIDE RECORDS SUMMARY | 2019-10-10 20:48 | XMS REPORT | Clinical Summary ---
Author Author Admin, Son Chan Organization [employer] Address Unknown Phone Unavailable Allergies, Adverse Reactions, [...] 1 tablet by mouth daily L ORATADINE [id number] No Longer Active Breanne Madl GROUNDS WORKER Active HYDROXYZINE HCL 25 MG TABS Take 1-2 tablets daily 2015 HYDROXYZINE HCL 35225733923 No Longer Active Breanne Madl GROUNDS WORKER Active ORTHO TRI-CYCLEN (28) 0.18/0.215/0.25 MG-35 MCG TABS 1 daily NORGESTIM-ETH ESTRAD TRIPHASIC 93093495754 No Longer Active Breanne Madl GROUNDS WORKER Active CLARITIN 10 MG TAB 1 tablet by mouth daily as needed for itchy r khari LORATADINE 35181836861 No Longer Active Ned Navarrete MD Active AUGMENTIN 875-125 MG TAB 1 po BID x 10 days with food AMOXICILLIN-POT CLAVULANATE 49063207879 No Longer Active Toni Washington DO Active ORTHO TRI-CYCLEN (28) 0.18/0.215/0.25 MG-35 MCG TABS 1 daily NORGESTIM-ETH ESTRAD TRIPHASIC 53174413218 No Longer Active Ned Navarrete MD Active ZOFRAN ODT 4 MG TBDP 1 po q6hr PRN Nausea ONDAN SETRON 42844456154 No Longer Active Ned Navarrete MD Active [facility] 3 MG TABS Take 1 tablet at bedtime. 2013 MELATONIN 56237642916 No Longer Active Ned Navarrete MD Activ e BIOTIN 1000 MCG TABS Take 2 tablets daily BIOTI N 90133987146 No Longer Active eNd Navarrete MD Active OMEPRAZOLE 20 MG CPDR 1 tablet by mouth daily O MEPRAZOLE 15300730776 No Longer Active Mariana oMses APRN Active LATUDA 80 MG TABS 1 tablet daily LURASIDONE HCL 74179958722 No Longer Active Mariana Moses APRN Active ZOVIRAX 400 MG TABS Take 1 tablet every 8 hours as needed 2 ACYCLOVIR 88775492646 No Longer Active Ned Navarrete MD Activ e ZITHROMAX Z-CHACE 250 MG TABS 2 today, then 1 daily for 4 days 201 10/06/11 AZITHROMYCIN 48215791633 No Longer Active Ned Navarrete MD Active TOPAMAX 100 MG TABS 1 tablet daily TOPIRAMATE 54 752246560 No Longer Active Ned Navarrete MD Active AMOXICILLIN 500 MG CAPS 2 po BID x 10 days AMOX ICILLIN 95375901605 No Longer Active Saskia Simon MD PhD Active NAPROSYN 375 MG TAB 1 twice a day as needed for chest pain 04/01 NAPROXEN 97059509245 No Longer Active Saskia Simon MD PhD Active HYDROCORTISONE 2.5 % EXT CREA Apply three times a day to aff ected area HYDROCORTISONE 89717486676 No Longer Active Ned Navarrete MD Active TOPIRAMATE 50 MG TABS 1 QD TOPIRAMATE 63324973897 No Longer Active Ned Navarrete MD Active FANAPT 6 MG TABS 1 BID ILOPERIDONE 92530433184 No L onger Active Ned Navarrete MD Active CIPROFLOXACIN HCL 0.3 % SOLN 1 drop in right eye every 2 hours for 2 days, then 1 drop four times a day CIPROFLOXACIN HCL 94690763335 No Longer Active Ned Navarrete MD Active LORATADINE 10 MG TABS 1 tablet by mouth daily L ORATADINE 98353176429 No Longer Active Ned Navarrete MD Active RANITIDINE HCL 150 MG CAPS 1 twice a day RANITI DINE HCL 12304175692 No Longer Active Ned Navarrete MD Active RANITIDINE HCL 150 MG CAPS 1 twice a day RANITIDINE HCL 150 MG CAPS 197065 RANITIDINE HCL Inactive LORATADINE 10 MG TABS 1 tablet by mouth daily LORATADINE 10 MG TABS 232170 LORATADINE Inactive CIPROFLOXACIN HCL 0.3 % SOLN 1 drop in right eye every 2 hours for 2 days, then 1 drop four times a day CIPROFLOXACIN HCL 0.3 % SOLN 458484 CIPROFLOXACIN HCL Inactive FANAPT 6 MG TABS 1 BID FANAPT 6 MG TABS ILO PERIDONE Inactive TOPIRAMATE 50 MG TABS 1 QD TOPIRAMATE 50 MG TABS 1 72196 TOPIRAMATE Inactive HYDROCORTISONE 2.5 % EXT CREA Apply three times a day to aff ected area HYDROCORTISONE 2.5 % EXT CREA 173833 HYDROCORTIS ONE Inactive NAPROSYN 375 MG TAB 1 twice a day as needed for chest pain 04/01 NAPROSYN 375 MG TAB NAPROXEN Inactive TOPAMAX 100 MG TABS 1 tablet daily TOPAMAX 100 MG TABS 376090 TOPIRAMATE Inactive ZOVIRAX 400 MG TABS Take 1 tablet every 8 hours as needed 2 ZOVIRAX 400 MG TABS 181330 ACYCLOVIR Inactive LATUDA 80 MG TABS 1 tablet daily LATUDA 80 MG TA BS LURASIDONE HCL Inactive OMEPRAZOLE 20 MG CPDR 1 tablet by mouth daily OMEPRAZOLE 20 MG CPDR 995245 OMEPRAZOLE Inactive BIOTIN 1000 MCG TABS Take 2 tablets daily BIOTIN 1000 MCG TABS 813148 BIOTIN Inactive [facility] 3 MG TABS Take 1 tablet at bedtime. 2013 [facility] MEL[facility] 3 MG TABS 321240 MELATONIN Inactive ZOFRAN ODT 4 MG TBDP 1 po q6hr PRN Nausea ZOFRAN ODT 4 MG TBDP 894643 ONDANSETRON Inactive ORTHO TRI-CYCLEN (28) 0.18/0.215/0.25 MG-35 MCG TABS 1 daily ORTHO TRI-CYCLEN (28) 0.18/0.215/0.25 MG-35 MCG TABS 011179 NORGESTIM-ETH ESTRAD TRIPHASIC Inactive CLARITIN 10 MG TAB 1 tablet by mouth daily as needed for itchy r khari CLARITIN 10 MG TAB 469500 LORATADINE Inactive ORTHO TRI-CYCLEN (28) 0.18/0.215/0.25 MG-35 MCG TABS 1 daily ORTHO TRI-CYCLEN (28) 0.18/0.215/0.25 MG-35 MCG TABS 207049 NORGESTIM-ETH ESTRAD TRIPHASIC Inactive HYDROXYZINE HCL 25 MG TABS Take 1-2 tablets daily 2015 HYDROXYZINE HCL 25 MG TABS 414780 HYDROXYZINE HCL Inactive LORATADINE 10 MG TABS 1 tablet by mouth daily LORATADINE 10 MG TABS 312269 LORATADINE Inactive AMOXICILLIN 500 MG CAPS 2 po BID x 10 days AMOXICILLIN 500 MG CAPS 625289 AMOXICILLIN Inactive ZITHROMAX Z-CHACE 250 MG TABS 2 today, then 1 daily for 4 days 201 10/06/11 ZITHROMAX Z-CHACE 250 MG TABS 0350216 AZITHROMYCIN Inac tive AUGMENTIN 875-125 MG TAB 1 po BID x 10 days with food AUGMENTIN 875-125 MG TAB 972218 AMOXICILLIN-POT CLAVULANATE Inactiv e Advance Directives Directive [...] 18 yo)) Fluzone preservative free (>3 yrs.) [[id number]] Influenza, seasonal, injectable, preservative free MPSV4 (meningococcal polysaccharide vaccination) Menactra meningococcal polysaccharide vaccine (MPSV4) hepatitis A immunization #1 Havrix-Pedi hepa titis A vaccine, unspecified formulation Adacel (Tetanus, reduced Diphtheria, and acellular Per tussis Immunization) Adacel [[id number]] tetanus toxoid, reduced diph theria toxoid, and [...] Measured Encounters Code Encounter Date Provider Facility CPT-41494 Level 3 Est. Patient 14:38:48 CDT Toni duque DO [facility] CPT-95820 Level 3 Est. Patient 09:02:58 CREDIT RELATIONSHIP MANAGER George paulson MD [facility] CPT-28888 Level 3 Est. Patient 17:42:32 CDT Ned Navarrete MD [facility] CPT-81981 Level 3 Est. Patient 11:04:31 CREDIT RELATIONSHIP MANAGER Mariana Torrez APRN [facility] CPT-36865 Level 4 Est. Patient 12:27:05 CREDIT RELATIONSHIP MANAGER Ned Navarrete MD [facility] CPT-00125 Level 3 Est. Patient 11:31:58 CREDIT RELATIONSHIP MANAGER Ned Navarrete MD [facility] CPT-20090 Level 3 Est. Patient 16:49:32 CDT Ned Navarrete MD [facility] CPT-18538 Level 4 Est. Patient 14:11:59 CREDIT RELATIONSHIP MANAGER Saskia green MD PhD [facility] CPT-24338 Level 3 Est. Patient 17:34:25 CDT Ned Navarrete MD [facility] CPT-71229 Level 3 Est. Patient 17:34:19 CDT Ned Navarrete MD [facility] CPT-12925 Level 3 Est. Patient 13:46:05 CDT Ned Navarrete MD [facility] CPT-66258 Level 3 Est. Patient 16:55:47 CREDIT RELATIONSHIP MANAGER Ned Navarrete MD [facility] CPT-88547 Level 2 Est. Patient 17:33:08 CREDIT RELATIONSHIP MANAGER Ned Navarrete MD [facility] CPT-94749 Level 3 Est. Patient 16:25:26 CREDIT RELATIONSHIP MANAGER Ned Navarrete MD [facility] Procedures Code Procedure Name Date Entry Date Standard Desc ription CPT-033 [facility] Med Screen 14:03:18 CDT CPT-033 [facility] Med Screen 11:04:57 CDT CPT-033 KB Med Screen 10:29:44 CDT CPT-12564 Administration 2+ single or combination vaccines inc oral 14:02:47 CREDIT RELATIONSHIP MANAGER CPT-22262 Administration single or combination vac cine inc oral 14:02:47 CREDIT RELATIONSHIP MANAGER CPT-36655 Hepatitis A ped/adol 2 dose schedule 14:02:47 CREDIT RELATIONSHIP MANAGER CPT-53791 Gardasil 14:02:47 CREDIT RELATIONSHIP MANAGER CPT-86906 Administration single or combination vac cine inc oral 11:40:38 CREDIT RELATIONSHIP MANAGER CPT-38283 Gardasil 11:40:38 CREDIT RELATIONSHIP MANAGER CPT-93473 Administration single or combination vac cine inc oral 09:45:00 CDT CPT-90799 Influenza Preservative Free split virus >age 3 09:45:00 CDT CPT-14699 Venipuncture Draw Fee 07:59:02 CDT
--- OUTSIDE RECORDS SUMMARY | 2019-10-10 20:48 | XMS REPORT | Clinical Summary ---
Author Author Admin, Son Chan Organization [employer] Address Unknown Phone Unavailable Allergies, Adverse Reactions, [...] sprain NASOLACRIMAL DUCT OBSTRUCTION, RIGHT 375.56 Resolved Nde Navarrete MD Stenosis of nasolacrimal duct, acquired [...] Navarrete MD VISUAL CHANGES ICD-368.10 Inactive Ned rPescott MD SINUSITIS, ACUTE ICD-461.9 Inactive Ned pérez [...] 1 daily for contraception NORGESTIM-ETH ESTRAD TRIPHASIC 96525459390 Active Ned Navarrete MD Active LATUDA 20 MG ORAL TABS LURASIDONE HCL 95774587967 No Longer Active Ned Navarrete MD Active PREDNISONE 20 MG TABS Take 2 daily for 3 days and then 1 herman ly for 3 days PREDNISONE 74753366664 No Longer Active Ned pérez MD Active CEPHALEXIN 500 MG ORAL CAPS CEPHALEXIN 59802326606 No Longer Active Ned Navarrete MD Active LORATADINE 10 MG TABS 1 tablet by mouth daily L ORATADINE 19275309353 No Longer Active Breanne Madl OTOLARYNGOLOGIST Active HYDROXYZINE HCL 25 MG TABS Take 1-2 tablets daily 2015 HYDROXYZINE HCL 50193923694 No Longer Active Breanne Madl OTOLARYNGOLOGIST Active ORTHO TRI-CYCLEN (28) 0.18/0.215/0.25 MG-35 MCG TABS 1 daily NORGESTIM-ETH ESTRAD TRIPHASIC 69940491359 No Longer Active Breanne Madl OTOLARYNGOLOGIST Active CLARITIN 10 MG TAB 1 tablet by mouth daily as needed for itchy r khari LORATADINE 67384070971 No Longer Active Ned Navarrete MD Active AUGMENTIN 875-125 MG TAB 1 po BID x 10 days with food AMOXICILLIN-POT CLAVULANATE 99746294774 No Longer Active Toni Washington DO Active ORTHO TRI-CYCLEN (28) 0.18/0.215/0.25 MG-35 MCG TABS 1 daily NORGESTIM-ETH ESTRAD TRIPHASIC 73016630698 No Longer Active Ned Navarrete MD Active ZOFRAN ODT 4 MG TBDP 1 po q6hr PRN Nausea ONDAN SETRON 08363094534 No Longer Active Ned Navarrete MD Active [facility] MEL[facility] 3 MG TABS Take 1 tablet at bedtime. 2013 MELATONIN 94818043489 No Longer Active Ned Navarrete MD Activ e BIOTIN 1000 MCG TABS Take 2 tablets daily BIOTI N 88104580649 No Longer Active Ned Navarrete MD Active OMEPRAZOLE 20 MG CPDR 1 tablet by mouth daily O MEPRAZOLE 79451176701 No Longer Active Mariana Moses APRN Active LATUDA 80 MG TABS 1 tablet daily LURASIDONE HCL 88097722349 No Longer Active Mariana Moses APRN Active ZOVIRAX 400 MG TABS Take 1 tablet every 8 hours as needed 2 ACYCLOVIR 15899371838 No Longer Active Ned Navarrete MD Activ e ZITHROMAX Z-CHACE 250 MG TABS 2 today, then 1 daily for 4 days 201 10/06/11 AZITHROMYCIN 37747364238 No Longer Active Ned Navarrete MD Active TOPAMAX 100 MG TABS 1 tablet daily TOPIRAMATE 54 265799630 No Longer Active Ned Navarrete MD Active AMOXICILLIN 500 MG CAPS 2 po BID x 10 days AMOX ICILLIN 51292416261 No Longer Active Saskia Simon MD PhD Active NAPROSYN 375 MG TAB 1 twice a day as needed for chest pain 04/01 NAPROXEN 55118117016 No Longer Active Saskia Simon MD PhD Active HYDROCORTISONE 2.5 % EXT CREA Apply three times a day to aff ected area HYDROCORTISONE 27455967995 No Longer Active Ned Navarrete MD Active TOPIRAMATE 50 MG TABS 1 QD TOPIRAMATE 97112505572 No Longer Active Ned Navarrete MD Active FANAPT 6 MG TABS 1 BID ILOPERIDONE 77203116372 No L onger Active Ned Navarrete MD Active CIPROFLOXACIN HCL 0.3 % SOLN 1 drop in right eye every 2 hours for 2 days, then 1 drop four times a day CIPROFLOXACIN HCL 05254880384 No Longer Active Ned Navarrete MD Active LORATADINE 10 MG TABS 1 tablet by mouth daily L ORATADINE 83278398782 No Longer Active Ned Navarrete MD Active RANITIDINE HCL 150 MG CAPS 1 twice a day RANITI DINE HCL 86715121338 No Longer Active Ned Navarrete MD Active RANITIDINE HCL 150 MG CAPS 1 twice a day RANITIDINE HCL 150 MG CAPS 429244 RANITIDINE HCL Inactive LORATADINE 10 MG TABS 1 tablet by mouth daily LORATADINE 10 MG TABS 879506 LORATADINE Inactive CIPROFLOXACIN HCL 0.3 % SOLN 1 drop in right eye every 2 hours for 2 days, then 1 drop four times a day CIPROFLOXACIN HCL 0.3 % SOLN 612876 CIPROFLOXACIN HCL Inactive FANAPT 6 MG TABS 1 BID FANAPT 6 MG TABS ILO PERIDONE Inactive TOPIRAMATE 50 MG TABS 1 QD TOPIRAMATE 50 MG TABS 1 32397 TOPIRAMATE Inactive HYDROCORTISONE 2.5 % EXT CREA Apply three times a day to aff ected area HYDROCORTISONE 2.5 % EXT CREA 156192 HYDROCORTIS ONE Inactive NAPROSYN 375 MG TAB 1 twice a day as needed for chest pain 04/01 NAPROSYN 375 MG TAB NAPROXEN Inactive TOPAMAX 100 MG TABS 1 tablet daily TOPAMAX 100 MG TABS 834699 TOPIRAMATE Inactive ZOVIRAX 400 MG TABS Take 1 tablet every 8 hours as needed 2 ZOVIRAX 400 MG TABS 847368 ACYCLOVIR Inactive LATUDA 80 MG TABS 1 tablet daily LATUDA 80 MG TA BS LURASIDONE HCL Inactive OMEPRAZOLE 20 MG CPDR 1 tablet by mouth daily OMEPRAZOLE 20 MG CPDR 582543 OMEPRAZOLE Inactive BIOTIN 1000 MCG TABS Take 2 tablets daily BIOTIN 1000 MCG TABS 845917 BIOTIN Inactive [facility] 3 MG TABS Take 1 tablet at bedtime. 2013 [facility] M[facility] 3 MG TABS 378936 MELATONIN Inactive ZOFRAN ODT 4 MG TBDP 1 po q6hr PRN Nausea ZOFRAN ODT 4 MG TBDP 273464 ONDANSETRON Inactive ORTHO TRI-CYCLEN (28) 0.18/0.215/0.25 MG-35 MCG TABS 1 daily ORTHO TRI-CYCLEN (28) 0.18/0.215/0.25 MG-35 MCG TABS 368651 NORGESTIM-ETH ESTRAD TRIPHASIC Inactive CLARITIN 10 MG TAB 1 tablet by mouth daily as needed for itchy r khari CLARITIN 10 MG TAB 393294 LORATADINE Inactive ORTHO TRI-CYCLEN (28) 0.18/0.215/0.25 MG-35 MCG TABS 1 daily ORTHO TRI-CYCLEN (28) 0.18/0.215/0.25 MG-35 MCG TABS 816740 NORGESTIM-ETH ESTRAD TRIPHASIC Inactive HYDROXYZINE HCL 25 MG TABS Take 1-2 tablets daily 2015 HYDROXYZINE HCL 25 MG TABS 542744 HYDROXYZINE HCL Inactive LORATADINE 10 MG TABS 1 tablet by mouth daily LORATADINE 10 MG TABS 955093 LORATADINE Inactive CEPHALEXIN 500 MG ORAL CAPS CEPHALEX IN 500 MG ORAL CAPS 287031 CEPHALEXIN Inactive PREDNISONE 20 MG TABS Take 2 daily for 3 days and then 1 herman ly for 3 days PREDNISONE 20 MG TABS 367488 PREDNISONE Inacti ve LATUDA 20 MG ORAL TABS LATUDA 20 MG OR AL TABS LURASIDONE HCL Inactive AMOXICILLIN 500 MG CAPS 2 po BID x 10 days AMOXICILLIN 500 MG CAPS 613636 AMOXICILLIN Inactive ZITHROMAX Z-CHACE 250 MG TABS 2 today, then 1 daily for 4 days 201 10/06/11 ZITHROMAX Z-CHACE 250 MG TABS 7977548 AZITHROMYCIN Inac tive AUGMENTIN 875-125 MG TAB 1 po BID x 10 days with food AUGMENTIN 875-125 MG TAB 863463 AMOXICILLIN-POT CLAVULANATE Inactiv e Advance Directives Directive [...] 16 yo)) Fluzone preservative free (>3 yrs.) [[id number]] Influenza, seasonal, injectable, preservative free MPSV4 (meningococcal polysaccharide vaccination) Menactra meningococcal polysaccharide vaccine (MPSV4) hepatitis A immunization #1 Havrix-Pedi hepa titis A vaccine, unspecified formulation Adacel (Tetanus, reduced Diphtheria, and acellular Per tussis Immunization) Adacel [[id number]] tetanus toxoid, reduced diph theria toxoid, and [...] 11 .0-15.0 platelet count 210 THOUSAND/UL 10*3/mm3 829-399 3351/11/02 mean platelet volume 10.3 fL 7.5-11.5 Lab [...] N Encounters Code Encounter Date Provider Facility CPT-22588 Level 3 Est. Patient 15:21:38 PRIMARY CARE PEDIATRICIAN Rayna Pepper APRN [facility] CPT-51461 Level 3 Est. Patient 15:35:51 PRIMARY CARE PEDIATRICIAN Ned Navarrete MD [facility] CPT-17800 Level 2 Est. Patient 12:43:40 CDT Ned Navarrete MD [facility] CPT-29924 Level 3 Est. Patient 14:38:48 CDT Toni duque DO [facility] CPT-36689 Level 3 Est. Patient 09:02:58 PRIMARY CARE PEDIATRICIAN George paulson MD [facility] CPT-28728 Level 3 Est. Patient 17:42:32 CDT Ned Navarrete MD [facility] CPT-63377 Level 3 Est. Patient 11:04:31 PRIMARY CARE PEDIATRICIAN Mariana Torrez APRN [facility] CPT-37736 Level 4 Est. Patient 12:27:05 PRIMARY CARE PEDIATRICIAN Ned Navarrete MD [facility] CPT-42900 Level 3 Est. Patient 11:31:58 PRIMARY CARE PEDIATRICIAN Ned Navarrete MD [facility] CPT-62472 Level 3 Est. Patient 16:49:32 CDT Ned Navarrete MD [facility] CPT-93447 Level 4 Est. Patient 14:11:59 PRIMARY CARE PEDIATRICIAN Saskia green MD PhD [facility] CPT-88224 Level 3 Est. Patient 17:34:25 CDT Ned Navarrete MD [facility] CPT-90644 Level 3 Est. Patient 17:34:19 CDT Ned Navarrete MD [facility] CPT-16592 Level 3 Est. Patient 13:46:05 CDT Ned Navarrete MD [facility] CPT-01328 Level 3 Est. Patient 16:55:47 PRIMARY CARE PEDIATRICIAN Ned Navarrete MD [facility] CPT-99839 Level 2 Est. Patient 17:33:08 PRIMARY CARE PEDIATRICIAN Ned Navarrete MD [facility] CPT-56648 Level 3 Est. Patient 16:25:26 PRIMARY CARE PEDIATRICIAN Ned Navarrete MD [facility] Procedures Code Procedure Name Date Entry Date Standard Desc ription CPT-22228 No Charge Offi Visit 11:24:44 CDT 1 CPT-29137 Visit 14:52:59 CDT CPT-75358 Visit 15:17:20 CDT CPT-14015 Visit 15:57:29 CDT CPT-45760 First Vx - Ix admin via ID I M or jet injects without counseling by physician 15:53:15 CDT CPT-68094 Boostrix Intramuscular Suspension 5-2.5-18.5 201 01/28/11 15:53:14 CDT CPT-42227 Tdap 7yrs or > 14:41:06 CDT CPT-30371 Visit 17:47:08 CDT CPT-42726 OBGTT 1 - LAB USE ONLY 10:15:57 CDT CPT-24723 Venipuncture Draw Fee 10:15:57 CDT CPT-00504 Visit 15:07:16 PRIMARY CARE PEDIATRICIAN CPT-72012 Visit 16:49:41 PRIMARY CARE PEDIATRICIAN CPT-03697 Sono OB limited - XRAY USE ONLY 16:38:01 CS T CPT-11919 Sono OB comp > 14 weeks - XRAY USE ONLY 17:00:59 PRIMARY CARE PEDIATRICIAN CPT-51523 UA w micro - LAB USE ONLY 16:59:38 CDT 2015 CPT-44139 TSH - LAB USE ONLY 16:59:38 CDT CPT-39032 Venipuncture Draw Fee 16:59:38 CDT CPT-19752 Spec Collection and Handling Fee 14:01:24 C DT CPT-17041 Visit 14:01:24 CDT CPT-033 [facility] Med Screen 14:03:18 CDT CPT-033 [facility] Med Screen 11:04:57 CDT CPT-033 [facility] Med Screen 10:29:44 CDT CPT-20377 Administration 2+ single or combination vaccines inc oral 14:02:47 PRIMARY CARE PEDIATRICIAN CPT-05157 Administration single or combination vac cine inc oral 14:02:47 PRIMARY CARE PEDIATRICIAN CPT-48361 Hepatitis A ped/adol 2 dose schedule 14:02:47 PRIMARY CARE PEDIATRICIAN CPT-86554 Gardasil 14:02:47 PRIMARY CARE PEDIATRICIAN CPT-36928 Administration single or combination vac cine inc oral 11:40:38 PRIMARY CARE PEDIATRICIAN CPT-37416 Gardasil 11:40:38 PRIMARY CARE PEDIATRICIAN CPT-72599 Administration single or combination vac cine inc oral 09:45:00 CDT CPT-89172 Influenza Preservative Free split virus >age 3 09:45:00 CDT CPT-68003 Venipuncture Draw Fee 07:59:02 CDT
--- OUTSIDE RECORDS SUMMARY | 2019-10-10 20:49 | XMS REPORT | Clinical Summary ---
Author Author Admin, Son Chan Organization [employer] Address Unknown Phone Unavailable Allergies, Adverse Reactions, [...] Navarrete MD VISUAL CHANGES ICD-368.10 Inactive Ned Presctot MD SINUSITIS, ACUTE ICD-461.9 Inactive Ned pérez [...] 1 herman ly for 3 days PREDNISONE [id number] No Longer Active Ned pérez MD Active CEPHALEXIN 500 MG ORAL CAPS CEPHALEXIN 12056863554 No Longer Active Ned Navarrete MD Active LATUDA 20 MG ORAL TABS LURASIDONE HCL 6871826 0230 Active Breanne Madl ACADEMIC COUNSELOR Active LORATADINE 10 MG TABS 1 tablet by mouth daily L ORATADINE 23276377968 No Longer Active Breanne Madl ACADEMIC COUNSELOR Active HYDROXYZINE HCL 25 MG TABS Take 1-2 tablets daily 2015 HYDROXYZINE HCL 87374185359 No Longer Active Breanne Madl ACADEMIC COUNSELOR Active ORTHO TRI-CYCLEN (28) 0.18/0.215/0.25 MG-35 MCG TABS 1 daily NORGESTIM-ETH ESTRAD TRIPHASIC 48106273958 No Longer Active Breanne Madl ACADEMIC COUNSELOR Active CLARITIN 10 MG TAB 1 tablet by mouth daily as needed for itchy r khari LORATADINE 37921571258 No Longer Active Ned Navarrete MD Active AUGMENTIN 875-125 MG TAB 1 po BID x 10 days with food AMOXICILLIN-POT CLAVULANATE 14148126161 No Longer Active Toni Washington DO Active ORTHO TRI-CYCLEN (28) 0.18/0.215/0.25 MG-35 MCG TABS 1 daily NORGESTIM-ETH ESTRAD TRIPHASIC 17010221208 No Longer Active Ned Navarrete MD Active ZOFRAN ODT 4 MG TBDP 1 po q6hr PRN Nausea ONDAN SETRON 05857460410 No Longer Active Ned Navarrete MD Active [facility] MEL[facility] 3 MG TABS Take 1 tablet at bedtime. 2013 MELATONIN 89203662623 No Longer Active Ned Navarrete MD Activ e BIOTIN 1000 MCG TABS Take 2 tablets daily BIOTI N 87638298280 No Longer Active Ned Navarrete MD Active OMEPRAZOLE 20 MG CPDR 1 tablet by mouth daily O MEPRAZOLE 93023712468 No Longer Active Mariana Moses APRN Active LATUDA 80 MG TABS 1 tablet daily LURASIDONE HCL 22045489339 No Longer Active Mariana Moses APRN Active ZOVIRAX 400 MG TABS Take 1 tablet every 8 hours as needed 2 ACYCLOVIR 33596705490 No Longer Active Ned Navarrete MD Activ e ZITHROMAX Z-CHACE 250 MG TABS 2 today, then 1 daily for 4 days 201 10/06/11 AZITHROMYCIN 57345600306 No Longer Active Ned Navarrete MD Active TOPAMAX 100 MG TABS 1 tablet daily TOPIRAMATE 54 373235099 No Longer Active Ned Navarrete MD Active AMOXICILLIN 500 MG CAPS 2 po BID x 10 days AMOX ICILLIN 79199103631 No Longer Active Saskia Simon MD PhD Active NAPROSYN 375 MG TAB 1 twice a day as needed for chest pain 04/01 NAPROXEN 57992790053 No Longer Active Saskia Simon MD PhD Active HYDROCORTISONE 2.5 % EXT CREA Apply three times a day to aff ected area HYDROCORTISONE 91468993094 No Longer Active Ned Navarrete MD Active TOPIRAMATE 50 MG TABS 1 QD TOPIRAMATE 51732452524 No Longer Active Ned Navarrete MD Active FANAPT 6 MG TABS 1 BID ILOPERIDONE 61636847930 No L onger Active Ned Navarrete MD Active CIPROFLOXACIN HCL 0.3 % SOLN 1 drop in right eye every 2 hours for 2 days, then 1 drop four times a day CIPROFLOXACIN HCL 96689186278 No Longer Active Ned Navarrete MD Active LORATADINE 10 MG TABS 1 tablet by mouth daily L ORATADINE 58351316624 No Longer Active Ned Navarrete MD Active RANITIDINE HCL 150 MG CAPS 1 twice a day RANITI DINE HCL 90152017855 No Longer Active Ned Navarrete MD Active RANITIDINE HCL 150 MG CAPS 1 twice a day RANITIDINE HCL 150 MG CAPS 892457 RANITIDINE HCL Inactive LORATADINE 10 MG TABS 1 tablet by mouth daily LORATADINE 10 MG TABS 088799 LORATADINE Inactive CIPROFLOXACIN HCL 0.3 % SOLN 1 drop in right eye every 2 hours for 2 days, then 1 drop four times a day CIPROFLOXACIN HCL 0.3 % SOLN 380729 CIPROFLOXACIN HCL Inactive FANAPT 6 MG TABS 1 BID FANAPT 6 MG TABS ILO PERIDONE Inactive TOPIRAMATE 50 MG TABS 1 QD TOPIRAMATE 50 MG TABS 1 36880 TOPIRAMATE Inactive HYDROCORTISONE 2.5 % EXT CREA Apply three times a day to aff ected area HYDROCORTISONE 2.5 % EXT CREA 684729 HYDROCORTIS ONE Inactive NAPROSYN 375 MG TAB 1 twice a day as needed for chest pain 04/01 NAPROSYN 375 MG TAB NAPROXEN Inactive TOPAMAX 100 MG TABS 1 tablet daily TOPAMAX 100 MG TABS 641179 TOPIRAMATE Inactive ZOVIRAX 400 MG TABS Take 1 tablet every 8 hours as needed 2 ZOVIRAX 400 MG TABS 032938 ACYCLOVIR Inactive LATUDA 80 MG TABS 1 tablet daily LATUDA 80 MG TA BS LURASIDONE HCL Inactive OMEPRAZOLE 20 MG CPDR 1 tablet by mouth daily OMEPRAZOLE 20 MG CPDR 017203 OMEPRAZOLE Inactive BIOTIN 1000 MCG TABS Take 2 tablets daily BIOTIN 1000 MCG TABS 173562 BIOTIN Inactive [facility] M[facility] 3 MG TABS Take 1 tablet at bedtime. 2013 [facility] MEL[facility] 3 MG TABS 701275 MELATONIN Inactive ZOFRAN ODT 4 MG TBDP 1 po q6hr PRN Nausea ZOFRAN ODT 4 MG TBDP 973200 ONDANSETRON Inactive ORTHO TRI-CYCLEN (28) 0.18/0.215/0.25 MG-35 MCG TABS 1 daily ORTHO TRI-CYCLEN (28) 0.18/0.215/0.25 MG-35 MCG TABS 420959 NORGESTIM-ETH ESTRAD TRIPHASIC Inactive CLARITIN 10 MG TAB 1 tablet by mouth daily as needed for itchy r khari CLARITIN 10 MG TAB 061748 LORATADINE Inactive ORTHO TRI-CYCLEN (28) 0.18/0.215/0.25 MG-35 MCG TABS 1 daily ORTHO TRI-CYCLEN (28) 0.18/0.215/0.25 MG-35 MCG TABS 826633 NORGESTIM-ETH ESTRAD TRIPHASIC Inactive HYDROXYZINE HCL 25 MG TABS Take 1-2 tablets daily 2015 HYDROXYZINE HCL 25 MG TABS 795192 HYDROXYZINE HCL Inactive LORATADINE 10 MG TABS 1 tablet by mouth daily LORATADINE 10 MG TABS 905516 LORATADINE Inactive CEPHALEXIN 500 MG ORAL CAPS CEPHALEX IN 500 MG ORAL CAPS 677624 CEPHALEXIN Inactive PREDNISONE 20 MG TABS Take 2 daily for 3 days and then 1 herman ly for 3 days PREDNISONE 20 MG TABS 060967 PREDNISONE Inacti ve AMOXICILLIN 500 MG CAPS 2 po BID x 10 days AMOXICILLIN 500 MG CAPS 922694 AMOXICILLIN Inactive ZITHROMAX Z-CHACE 250 MG TABS 2 today, then 1 daily for 4 days 201 10/06/11 ZITHROMAX Z-CHACE 250 MG TABS 6568879 AZITHROMYCIN Inac tive AUGMENTIN 875-125 MG TAB 1 po BID x 10 days with food AUGMENTIN 875-125 MG TAB 535134 AMOXICILLIN-POT CLAVULANATE Inactiv e Advance Directives Directive [...] 18 yo)) Fluzone preservative free (>3 yrs.) [[id number]] Influenza, seasonal, injectable, preservative free MPSV4 (meningococcal polysaccharide vaccination) Menactra meningococcal polysaccharide vaccine (MPSV4) hepatitis A immunization #1 Havrix-Pedi hepa titis A vaccine, unspecified formulation Adacel (Tetanus, reduced Diphtheria, and acellular Per tussis Immunization) Adacel [[id number]] tetanus toxoid, reduced diph theria toxoid, and [...] 11 .0-15.0 platelet count 210 THOUSAND/UL 10*3/mm3 299-726 3604/11/02 mean platelet volume 10.3 fL 7.5-11.5 Lab [...] N Encounters Code Encounter Date Provider Facility CPT-49563 Level 3 Est. Patient 15:35:51 NAILING MACHINE OPERATOR AUTOMATIC Ned Navarrete MD [facility] CPT-89295 Level 2 Est. Patient 12:43:40 CDT Ned Navarrete MD [facility] CPT-28852 Level 3 Est. Patient 14:38:48 CDT Toni duque DO [facility] CPT-58976 Level 3 Est. Patient 09:02:58 NAILING MACHINE OPERATOR AUTOMATIC George paulson MD [facility] CPT-64380 Level 3 Est. Patient 17:42:32 CDT Ned Navarrete MD [facility] CPT-55029 Level 3 Est. Patient 11:04:31 NAILING MACHINE OPERATOR AUTOMATIC Mariana Torrez APRN [facility] CPT-88618 Level 4 Est. Patient 12:27:05 NAILING MACHINE OPERATOR AUTOMATIC Ned Navarrete MD [facility] CPT-69656 Level 3 Est. Patient 11:31:58 NAILING MACHINE OPERATOR AUTOMATIC Ned Navarrete MD [facility] CPT-80962 Level 3 Est. Patient 16:49:32 CDT Ned Navarrete MD [facility] CPT-11452 Level 4 Est. Patient 14:11:59 NAILING MACHINE OPERATOR AUTOMATIC Saskia green MD PhD [facility] CPT-39219 Level 3 Est. Patient 17:34:25 CDT Ned Navarrete MD [facility] CPT-70394 Level 3 Est. Patient 17:34:19 CDT Ned Navarrete MD [facility] CPT-31343 Level 3 Est. Patient 13:46:05 CDT Nde Navarrete MD [facility] CPT-10269 Level 3 Est. Patient 16:55:47 NAILING MACHINE OPERATOR AUTOMATIC Ned Navarrete MD [facility] CPT-63318 Level 2 Est. Patient 17:33:08 NAILING MACHINE OPERATOR AUTOMATIC Ned Navarrete MD [facility] CPT-63075 Level 3 Est. Patient 16:25:26 NAILING MACHINE OPERATOR AUTOMATIC Ned Navarrete MD [facility] Procedures Code Procedure Name Date Entry Date Standard Desc ription CPT-43379 Visit 15:07:16 NAILING MACHINE OPERATOR AUTOMATIC CPT-92978 Visit 16:49:41 NAILING MACHINE OPERATOR AUTOMATIC CPT-23152 [facility] OB limited - XRAY USE ONLY 16:38:01 CS T CPT-44056 Sono OB comp > 14 weeks - XRAY USE ONLY 17:00:59 NAILING MACHINE OPERATOR AUTOMATIC CPT-28496 UA w micro - LAB USE ONLY 16:59:38 CDT 2015 CPT-43033 TSH - LAB USE ONLY 16:59:38 CDT CPT-77334 Venipuncture Draw Fee 16:59:38 CDT CPT-43070 Spec Collection and Handling Fee 14:01:24 C DT CPT-31258 Visit 14:01:24 CDT CPT-033 [facility] Med Screen 14:03:18 CDT CPT-033 [facility] Med Screen 11:04:57 CDT CPT-033 [facility] Med Screen 10:29:44 CDT CPT-08137 Administration 2+ single or combination vaccines inc oral 14:02:47 NAILING MACHINE OPERATOR AUTOMATIC CPT-89984 Administration single or combination vac cine inc oral 14:02:47 NAILING MACHINE OPERATOR AUTOMATIC CPT-77816 Hepatitis A ped/adol 2 dose schedule 14:02:47 NAILING MACHINE OPERATOR AUTOMATIC CPT-64571 Gardasil 14:02:47 NAILING MACHINE OPERATOR AUTOMATIC CPT-11418 Administration single or combination vac cine inc oral 11:40:38 NAILING MACHINE OPERATOR AUTOMATIC CPT-62532 Gardasil 11:40:38 NAILING MACHINE OPERATOR AUTOMATIC CPT-28681 Administration single or combination vac cine inc oral 09:45:00 CDT CPT-12398 Influenza Preservative Free split virus >age 3 09:45:00 CDT CPT-84838 Venipuncture Draw Fee 07:59:02 CDT
--- OUTSIDE RECORDS SUMMARY | 2019-10-10 20:49 | XMS REPORT | Clinical Summary ---
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 2013 MELATONIN 70822463807 No Longer Active Ned Navarrete MD Activ e BIOTIN 1000 MCG TABS Take 2 tablets daily BIOTI N 27450277440 No Longer Active Ned Navarrete MD Active OMEPRAZOLE 20 MG CPDR 1 tablet by mouth daily O MEPRAZOLE 68153410373 No Longer Active Mariana Moses APRN Active LATUDA 80 MG TABS 1 tablet daily LURASIDONE HCL 23360753515 No Longer Active Mariana Moses APRN Active ZOVIRAX 400 MG TABS Take 1 tablet every 8 hours as needed 2 ACYCLOVIR 88506860876 No Longer Active Ned Navarrete MD Activ e ZITHROMAX Z-CHACE 250 MG TABS 2 today, then 1 daily for 4 days 201 10/06/11 AZITHROMYCIN 86980411948 No Longer Active Ned Navarrete MD Active HYDROXYZINE HCL 25 MG TABS Take 1-2 tablets daily HYDROXYZINE HCL 02794316141 Active Ned Navarrete MD Active TOPAMAX 100 MG TABS 1 tablet daily TOPIRAMATE 54 601385663 No Longer Active Ned Navarrete MD Active AMOXICILLIN 500 MG CAPS 2 po BID x 10 days AMOX ICILLIN 06321313593 No Longer Active Saskia Torri Madril MD PhD Active NAPROSYN 375 MG TAB 1 twice a day as needed for chest pain 04/01 NAPROXEN 13779953940 No Longer Active Saskia Simon MD PhD Active HYDROCORTISONE 2.5 % EXT CREA Apply three times a day to aff ected area HYDROCORTISONE 55110616739 No Longer Active Ned Navarrete MD Active LORATADINE 10 MG TABS 1 tablet by mouth daily L ORATADINE 85087972035 Active Ned Navarrete MD Active TOPIRAMATE 50 MG TABS 1 QD TOPIRAMATE 14619631388 No Longer Active Ned Navarrete MD Active FANAPT 6 MG TABS 1 BID ILOPERIDONE 36069606456 No L onger Active Ned Navarrete MD Active CIPROFLOXACIN HCL 0.3 % SOLN 1 drop in right eye every 2 hours for 2 days, then 1 drop four times a day CIPROFLOXACIN HCL 49740043292 No Longer Active Ned Navarrete MD Active LORATADINE 10 MG TABS 1 tablet by mouth daily L ORATADINE 10199982118 No Longer Active Ned Navarrete MD Active RANITIDINE HCL 150 MG CAPS 1 twice a day RANITI DINE HCL 80466425901 No Longer Active Ned Navarrete MD Active RANITIDINE HCL 150 MG CAPS 1 twice a day RANITIDINE HCL 150 MG CAPS 619850 RANITIDINE HCL Inactive LORATADINE 10 MG TABS 1 tablet by mouth daily LORATADINE 10 MG TABS 938702 LORATADINE Inactive CIPROFLOXACIN HCL 0.3 % SOLN 1 drop in right eye every 2 hours for 2 days, then 1 drop four times a day CIPROFLOXACIN HCL 0.3 % SOLN 187072 CIPROFLOXACIN HCL Inactive FANAPT 6 MG TABS 1 BID FANAPT 6 MG TABS ILO PERIDONE Inactive TOPIRAMATE 50 MG TABS 1 QD TOPIRAMATE 50 MG TABS 1 35194 TOPIRAMATE Inactive HYDROCORTISONE 2.5 % EXT CREA Apply three times a day to aff ected area HYDROCORTISONE 2.5 % EXT CREA 715914 HYDROCORTIS ONE Inactive NAPROSYN 375 MG TAB [...] by mouth daily OMEPRAZOLE 20 MG CPDR 743145 OMEPRAZOLE Inactive BIOTIN 1000 MCG TABS Take 2 tablets daily BIOTIN 1000 MCG TABS 859544 BIOTIN Inactive [facility] MEL[facility]IN 3 MG TABS Take 1 tablet at bedtime. 2013 [facility] MEL[facility]IN 3 MG TABS 833927 MELATONIN Inactive ZOFRAN ODT 4 MG TBDP 1 po q6hr PRN Nausea ZOFRAN ODT 4 MG TBDP 328457 ONDANSETRON Inactive ORTHO TRI-CYCLEN (28) 0.18/0.215/0.25 MG-35 MCG TABS 1 daily ORTHO TRI-CYCLEN (28) 0.18/0.215/0.25 MG-35 MCG TABS 309205 NORGESTIM-ETH ESTRAD TRIPHASIC Inactive AMOXICILLIN 500 MG CAPS 2 po BID x 10 days AMOXICILLIN 500 MG CAPS 175580 AMOXICILLIN Inactive ZITHROMAX Z-CHACE 250 MG TABS 2 today, then 1 daily for 4 days 201 10/06/11 ZITHROMAX Z-CHACE 250 MG TABS 5703386 AZITHROMYCIN Inac tive Advance Directives Directive Description [...] 18 yo)) Fluzone preservative free (>3 yrs.) [[id number]] Influenza, seasonal, injectable, preservative free MPSV4 (meningococcal polysaccharide vaccination) Menactra meningococcal polysaccharide vaccine (MPSV4) hepatitis A immunization #1 Havrix-Pedi hepa titis A vaccine, unspecified formulation Adacel (Tetanus, reduced Diphtheria, and acellular Per tussis Immunization) Adacel [[id number]] tetanus toxoid, reduced diph theria toxoid, and [...] Name Value Unit Range Description [facility]: [facility] - Chemistry human chorionic gonadotropin , urine, qualitative (urine test) Negative Negative Encounters Code Encounter Date Provider Facility CPT-26766 Level 3 Est. Patient 17:42:32 CDT Ned Navarrete MD [facility] CPT-59294 Level 3 Est. Patient 11:04:31 OPERATIONS AND MAINTENANCE TECHNICAN Mariana Torrez APRN [facility] CPT-75502 Level 4 Est. Patient 12:27:05 OPERATIONS AND MAINTENANCE TECHNICAN Ned Navarrete MD [facility] CPT-62527 Level 3 Est. Patient 11:31:58 OPERATIONS AND MAINTENANCE TECHNICAN Ned Navarrete MD [facility] CPT-97261 Level 3 Est. Patient 16:49:32 CDT Ned Navarrete MD [facility] CPT-13039 Level 4 Est. Patient 14:11:59 OPERATIONS AND MAINTENANCE TECHNICAN Saskia green MD PhD [facility] CPT-82379 Level 3 Est. Patient 17:34:25 CDT Ned Navarrete MD [facility] CPT-93804 Level 3 Est. Patient 17:34:19 CDT Ned Navarrete MD [facility] CPT-73424 Level 3 Est. Patient 13:46:05 CDT Ned Navarrete MD [facility] CPT-87993 Level 3 Est. Patient 16:55:47 OPERATIONS AND MAINTENANCE TECHNICAN Ned Navarrete MD [facility] CPT-97919 Level 2 Est. Patient 17:33:08 OPERATIONS AND MAINTENANCE TECHNICAN Ned Navarrete MD [facility] CPT-80007 Level 3 Est. Patient 16:25:26 OPERATIONS AND MAINTENANCE TECHNICAN Ned Navarrete MD [facility] Procedures Code Procedure Name Date Entry Date Standard Desc ription CPT-033 KB Med Screen 10:29:44 CDT CPT-84385 Administration 2+ single or combination vaccines inc oral 14:02:47 OPERATIONS AND MAINTENANCE TECHNICAN CPT-59612 Administration single or combination vac cine inc oral 14:02:47 OPERATIONS AND MAINTENANCE TECHNICAN CPT-97889 Hepatitis A ped/adol 2 dose schedule 14:02:47 OPERATIONS AND MAINTENANCE TECHNICAN CPT-41413 Gardasil 14:02:47 OPERATIONS AND MAINTENANCE TECHNICAN CPT-80728 Administration single or combination vac cine inc oral 11:40:38 OPERATIONS AND MAINTENANCE TECHNICAN CPT-08031 Gardasil 11:40:38 OPERATIONS AND MAINTENANCE TECHNICAN CPT-31497 Administration single or combination vac cine inc oral 09:45:00 CDT CPT-68250 Influenza Preservative Free split virus >age 3 09:45:00 CDT CPT-16149 Venipuncture Draw Fee 07:59:02 CDT
--- OUTSIDE RECORDS SUMMARY | 2019-10-10 20:49 | XMS REPORT | Clinical Summary ---
Author Author Admin, Son Chan Organization [employer] Address Unknown Phone Unavailable Allergies, Adverse Reactions, [...] Navarrete MD DERMATITIS, ALLERGIC ICD-692.9 Inactive Saskia iSmon MD PhD COSTOCHONDRITIS ICD-733.6 Inactive Saskia Simon [...] 1 tablet by mouth daily L ORATADINE 20106357720 No Longer Active Breanne Madl BINDER LOCKSTITCH Active HYDROXYZINE HCL 25 MG TABS Take 1-2 tablets daily 2015 HYDROXYZINE HCL 72829121927 No Longer Active Breanne Madl BINDER LOCKSTITCH Active ORTHO TRI-CYCLEN (28) 0.18/0.215/0.25 MG-35 MCG TABS 1 daily NORGESTIM-ETH ESTRAD TRIPHASIC 80400887921 No Longer Active Breanne Madl BINDER LOCKSTITCH Active CLARITIN 10 MG TAB 1 tablet by mouth daily as needed for itchy r khari LORATADINE 56460517108 No Longer Active Ned Navarrete MD Active AUGMENTIN 875-125 MG TAB 1 po BID x 10 days with food AMOXICILLIN-POT CLAVULANATE 73981758835 No Longer Active Toni Washington DO Active ORTHO TRI-CYCLEN (28) 0.18/0.215/0.25 MG-35 MCG TABS 1 daily NORGESTIM-ETH ESTRAD TRIPHASIC 51487261206 No Longer Active Ned Navarrete MD Active ZOFRAN ODT 4 MG TBDP 1 po q6hr PRN Nausea ONDAN SETRON 83967806050 No Longer Active Ned Navarrete MD Active [facility] MEL[facility] 3 MG TABS Take 1 tablet at bedtime. 2013 MELATONIN 92000010497 No Longer Active Ned Navarrete MD Activ e BIOTIN 1000 MCG TABS Take 2 tablets daily BIOTI N 22557568301 No Longer Active Ned Navarrete MD Active OMEPRAZOLE 20 MG CPDR 1 tablet by mouth daily O MEPRAZOLE 08543815394 No Longer Active Mariana Moses APRN Active LATUDA 80 MG TABS 1 tablet daily LURASIDONE HCL 08952525887 No Longer Active Mariana Moses APRN Active ZOVIRAX 400 MG TABS Take 1 tablet every 8 hours as needed 2 ACYCLOVIR 50996439000 No Longer Active Ned Navarrete MD Activ e ZITHROMAX Z-CHACE 250 MG TABS 2 today, then 1 daily for 4 days 201 10/06/11 AZITHROMYCIN 36891913899 No Longer Active Ned Navarrete MD Active TOPAMAX 100 MG TABS 1 tablet daily TOPIRAMATE 54 595070947 No Longer Active Ned Navarrete MD Active AMOXICILLIN 500 MG CAPS 2 po BID x 10 days AMOX ICILLIN 77432004914 No Longer Active Saskia Simon MD PhD Active NAPROSYN 375 MG TAB 1 twice a day as needed for chest pain 04/01 NAPROXEN 29378959461 No Longer Active Saskia Simon MD PhD Active HYDROCORTISONE 2.5 % EXT CREA Apply three times a day to aff ected area HYDROCORTISONE 69361297271 No Longer Active eNd Navarrete MD Active TOPIRAMATE 50 MG TABS 1 QD TOPIRAMATE 78407002200 No Longer Active Ned Navarrete MD Active FANAPT 6 MG TABS 1 BID ILOPERIDONE 21429118962 No L onger Active Ned Navarrete MD Active CIPROFLOXACIN HCL 0.3 % SOLN 1 drop in right eye every 2 hours for 2 days, then 1 drop four times a day CIPROFLOXACIN HCL 72454343485 No Longer Active Ned Navarrete MD Active LORATADINE 10 MG TABS 1 tablet by mouth daily L ORATADINE 82862290356 No Longer Active Ned Navarrete MD Active RANITIDINE HCL 150 MG CAPS 1 twice a day RANITI DINE HCL 66823621895 No Longer Active Ned Navarrete MD Active RANITIDINE HCL 150 MG CAPS 1 twice a day RANITIDINE HCL 150 MG CAPS 565516 RANITIDINE HCL Inactive LORATADINE 10 MG TABS 1 tablet by mouth daily LORATADINE 10 MG TABS 606334 LORATADINE Inactive CIPROFLOXACIN HCL 0.3 % SOLN 1 drop in right eye every 2 hours for 2 days, then 1 drop four times a day CIPROFLOXACIN HCL 0.3 % SOLN 877148 CIPROFLOXACIN HCL Inactive FANAPT 6 MG TABS 1 BID FANAPT 6 MG TABS ILO PERIDONE Inactive TOPIRAMATE 50 MG TABS 1 QD TOPIRAMATE 50 MG TABS 1 60659 TOPIRAMATE Inactive HYDROCORTISONE 2.5 % EXT CREA Apply three times a day to aff ected area HYDROCORTISONE 2.5 % EXT CREA 529647 HYDROCORTIS ONE Inactive NAPROSYN 375 MG TAB 1 twice a day as needed for chest pain 04/01 NAPROSYN 375 MG TAB NAPROXEN Inactive TOPAMAX 100 MG TABS 1 tablet daily TOPAMAX 100 MG TABS 616895 TOPIRAMATE Inactive ZOVIRAX 400 MG TABS Take 1 tablet every 8 hours as needed ZOVIRAX 400 MG TABS 19720728 ACYCLOVIR Inactive LATUDA 80 MG TABS 1 tablet daily LATUDA 80 MG TA BS LURASIDONE HCL Inactive OMEPRAZOLE 20 MG CPDR 1 tablet by mouth daily OMEPRAZOLE 20 MG CPDR 071363 OMEPRAZOLE Inactive BIOTIN 1000 MCG TABS Take 2 tablets daily BIOTIN 1000 MCG TABS 486680 BIOTIN Inactive [facility] MEL[facility] 3 MG TABS Take 1 tablet at bedtime. 2013 [facility] MEL[facility] 3 MG TABS 213583 MELATONIN Inactive ZOFRAN ODT 4 MG TBDP 1 po q6hr PRN Nausea ZOFRAN ODT 4 MG TBDP 739856 ONDANSETRON Inactive ORTHO TRI-CYCLEN (28) 0.18/0.215/0.25 MG-35 MCG TABS 1 daily ORTHO TRI-CYCLEN (28) 0.18/0.215/0.25 MG-35 MCG TABS 494802 NORGESTIM-ETH ESTRAD TRIPHASIC Inactive CLARITIN 10 MG TAB 1 tablet by mouth daily as needed for itchy r khair CLARITIN 10 MG TAB 582452 LORATADINE Inactive ORTHO TRI-CYCLEN (28) 0.18/0.215/0.25 MG-35 MCG TABS 1 daily ORTHO TRI-CYCLEN (28) 0.18/0.215/0.25 MG-35 MCG TABS 213901 NORGESTIM-ETH ESTRAD TRIPHASIC Inactive HYDROXYZINE HCL 25 MG TABS Take 1-2 tablets daily 2015 HYDROXYZINE HCL 25 MG TABS 996466 HYDROXYZINE HCL Inactive LORATADINE 10 MG TABS 1 tablet by mouth daily LORATADINE 10 MG TABS 042184 LORATADINE Inactive AMOXICILLIN 500 MG CAPS 2 po BID x 10 days AMOXICILLIN 500 MG CAPS 358080 AMOXICILLIN Inactive ZITHROMAX Z-CHACE 250 MG TABS 2 today, then 1 daily for 4 days 201 10/06/11 ZITHROMAX Z-CHACE 250 MG TABS 5075214 AZITHROMYCIN Inac tive AUGMENTIN 875-125 MG TAB 1 po BID x 10 days with food AUGMENTIN 875-125 MG TAB 492249 AMOXICILLIN-POT CLAVULANATE Inactiv e Advance Directives Directive [...] 18 yo)) Fluzone preservative free (>3 yrs.) [[id number]] Influenza, seasonal, injectable, preservative free MPSV4 (meningococcal polysaccharide vaccination) Menactra meningococcal polysaccharide vaccine (MPSV4) hepatitis A immunization #1 Havrix-Pedi hepa titis A vaccine, unspecified formulation Adacel (Tetanus, reduced Diphtheria, and acellular Per tussis Immunization) Adacel [[id number]] tetanus toxoid, reduced diph theria toxoid, and [...] Measured Encounters Code Encounter Date Provider Facility CPT-37071 Level 2 Est. Patient 12:43:40 CDT Ned Navarrete MD [facility] CPT-99585 Level 3 Est. Patient 14:38:48 CDT Toni duque DO [facility] CPT-54166 Level 3 Est. Patient 09:02:58 STORAGE ADMINISTRATOR George paulson MD [facility] CPT-61961 Level 3 Est. Patient 17:42:32 CDT Ned Navarrete MD [facility] CPT-72013 Level 3 Est. Patient 11:04:31 STORAGE ADMINISTRATOR Mariana Torrez APRN [facility] CPT-84109 Level 4 Est. Patient 12:27:05 STORAGE ADMINISTRATOR Ned Navarrete MD [facility] CPT-57653 Level 3 Est. Patient 11:31:58 STORAGE ADMINISTRATOR Ned Navarrete MD [facility] CPT-49540 Level 3 Est. Patient 16:49:32 CDT Ned Navarrete MD [facility] CPT-09237 Level 4 Est. Patient 14:11:59 STORAGE ADMINISTRATOR Saskia green MD PhD [facility] CPT-23016 Level 3 Est. Patient 17:34:25 CDT Ned Navarrete MD [facility] CPT-64124 Level 3 Est. Patient 17:34:19 CDT Ned Navarrete MD [facility] CPT-60968 Level 3 Est. Patient 13:46:05 CDT Ned Navarrete MD [facility] CPT-93686 Level 3 Est. Patient 16:55:47 STORAGE ADMINISTRATOR Ned Navarrete MD [facility] CPT-74115 Level 2 Est. Patient 17:33:08 STORAGE ADMINISTRATOR Ned Navarrete MD [facility] CPT-75293 Level 3 Est. Patient 16:25:26 STORAGE ADMINISTRATOR Ned Navarrete MD [facility] Procedures Code Procedure Name Date Entry Date Standard Desc ription CPT-033 [facility] Med Screen 14:03:18 CDT CPT-033 [facility] Med Screen 11:04:57 CDT CPT-033 [facility] Med Screen 10:29:44 CDT CPT-91387 Administration 2+ single or combination vaccines inc oral 14:02:47 STORAGE ADMINISTRATOR CPT-64759 Administration single or combination vac cine inc oral 14:02:47 STORAGE ADMINISTRATOR CPT-44232 Hepatitis A ped/adol 2 dose schedule 14:02:47 STORAGE ADMINISTRATOR CPT-95058 Gardasil 14:02:47 STORAGE ADMINISTRATOR CPT-64440 Administration single or combination vac cine inc oral 11:40:38 STORAGE ADMINISTRATOR CPT-19341 Gardasil 11:40:38 STORAGE ADMINISTRATOR CPT-22300 Administration single or combination vac cine inc oral 09:45:00 CDT CPT-30769 Influenza Preservative Free split virus >age 3 09:45:00 CDT CPT-24874 Venipuncture Draw Fee 07:59:02 CDT
--- OUTSIDE RECORDS SUMMARY | 2019-10-10 20:50 | XMS REPORT | Clinical Summary ---
Author Author Admin, Son Rodriguez [facility] Address Unknown Phone Unavailable [...] MD Acute pharyngitis Epigastric pain 789.06 Active eNd Navarrete MD Abdominal pain, epigastric Dizziness 780.4 [...] NO LOSS OF CONSCIOUSNESS ICD-850.0 Inactive Ned Nvaarrete MD VISUAL CHANGES ICD-368.10 Inactive Ned Prescott [...] LATUDA 20 MG ORAL TABS LURASIDONE HCL 7700013 0230 Active Breanne Madl ASPHALT TAMPER Active CEPHALEXIN 500 MG ORAL CAPS CEPHALEXIN 764249 75949 Active Breanne Madl ASPHALT TAMPER Active LORATADINE 10 MG TABS 1 tablet by mouth daily L ORATADINE 98100163800 No Longer Active Breanne Madl ASPHALT TAMPER Active HYDROXYZINE HCL 25 MG TABS Take 1-2 tablets daily 2015 HYDROXYZINE HCL 21787214987 No Longer Active Breanne Madl ASPHALT TAMPER Active ORTHO TRI-CYCLEN (28) 0.18/0.215/0.25 MG-35 MCG TABS 1 daily NORGESTIM-ETH ESTRAD TRIPHASIC 86574853774 No Longer Active Breanne Madl ASPHALT TAMPER Active CLARITIN 10 MG TAB 1 tablet by mouth daily as needed for itchy r khari LORATADINE 37686392933 No Longer Active Ned Navarrete MD Active AUGMENTIN 875-125 MG TAB 1 po BID x 10 days with food AMOXICILLIN-POT CLAVULANATE 44142169995 No Longer Active Toni Washington DO Active ORTHO TRI-CYCLEN (28) 0.18/0.215/0.25 MG-35 MCG TABS 1 daily NORGESTIM-ETH ESTRAD TRIPHASIC 36992677541 No Longer Active Ned Navarrete MD Active ZOFRAN ODT 4 MG TBDP 1 po q6hr PRN Nausea ONDAN SETRON 71869280475 No Longer Active Ned Navarrete MD Active [facility] MEL[facility] 3 MG TABS Take 1 tablet at bedtime. 2013 MELATONIN 23923557559 No Longer Active Ned Navarrete MD Activ e BIOTIN 1000 MCG TABS Take 2 tablets daily BIOTI N 33753948687 No Longer Active Ned Navarrete MD Active OMEPRAZOLE 20 MG CPDR 1 tablet by mouth daily O MEPRAZOLE 47742318536 No Longer Active Mariana Josué ACCOUNTS PAYABLE TECHNICIAN Active LATUDA 80 MG TABS 1 tablet daily LURASIDONE HCL 33010421658 No Longer Active Mariana Moses APRN Active ZOVIRAX 400 MG TABS Take 1 tablet every 8 hours as needed 2 ACYCLOVIR 38912085381 No Longer Active Ned Navarrete MD Activ e ZITHROMAX Z-CHACE 250 MG TABS 2 today, then 1 daily for 4 days 201 10/06/11 AZITHROMYCIN 32765186001 No Longer Active Ned Navarrete MD Active TOPAMAX 100 MG TABS 1 tablet daily TOPIRAMATE 54 257634370 No Longer Active Ned Navarrete MD Active AMOXICILLIN 500 MG CAPS 2 po BID x 10 days AMOX ICILLIN 81301480111 No Longer Active Saskia Simon MD PhD Active NAPROSYN 375 MG TAB 1 twice a day as needed for chest pain 04/01 NAPROXEN 35013181151 No Longer Active Saskia Simon MD PhD Active HYDROCORTISONE 2.5 % EXT CREA Apply three times a day to aff ected area HYDROCORTISONE 48078204404 No Longer Active Ned Navarrete MD Active TOPIRAMATE 50 MG TABS 1 QD TOPIRAMATE 43664855843 No Longer Active Ned Navarrete MD Active FANAPT 6 MG TABS 1 BID ILOPERIDONE 40301381031 No L onger Active Ned Navarrete MD Active CIPROFLOXACIN HCL 0.3 % SOLN 1 drop in right eye every 2 hours for 2 days, then 1 drop four times a day CIPROFLOXACIN HCL 18666012896 No Longer Active Ned Navarrete MD Active LORATADINE 10 MG TABS 1 tablet by mouth daily L ORATADINE 11792723468 No Longer Active Ned Navarrete MD Active RANITIDINE HCL 150 MG CAPS 1 twice a day RANITI DINE HCL 97848076925 No Longer Active Ned Navarrete MD Active RANITIDINE HCL 150 MG CAPS 1 twice a day RANITIDINE HCL 150 MG CAPS 608144 RANITIDINE HCL Inactive LORATADINE 10 MG TABS 1 tablet by mouth daily LORATADINE 10 MG TABS 833001 LORATADINE Inactive CIPROFLOXACIN HCL 0.3 % SOLN 1 drop in right eye every 2 hours for 2 days, then 1 drop four times a day CIPROFLOXACIN HCL 0.3 % SOLN 059931 CIPROFLOXACIN HCL Inactive FANAPT 6 MG TABS 1 BID FANAPT 6 MG TABS ILO PERIDONE Inactive TOPIRAMATE 50 MG TABS 1 QD TOPIRAMATE 50 MG TABS 1 54911 TOPIRAMATE Inactive HYDROCORTISONE 2.5 % EXT CREA Apply three times a day to aff ected area HYDROCORTISONE 2.5 % EXT CREA 889452 HYDROCORTIS ONE Inactive NAPROSYN 375 MG TAB 1 twice a day as needed for chest pain 04/01 NAPROSYN 375 MG TAB NAPROXEN Inactive TOPAMAX 100 MG TABS 1 tablet daily TOPAMAX 100 MG TABS 020597 TOPIRAMATE Inactive ZOVIRAX 400 MG TABS Take 1 tablet every 8 hours as needed 2 ZOVIRAX 400 MG TABS 914820 ACYCLOVIR Inactive LATUDA 80 MG TABS 1 tablet daily LATUDA 80 MG TA BS LURASIDONE HCL Inactive OMEPRAZOLE 20 MG CPDR 1 tablet by mouth daily OMEPRAZOLE 20 MG CPDR 507420 OMEPRAZOLE Inactive BIOTIN 1000 MCG TABS Take 2 tablets daily BIOTIN 1000 MCG TABS 704227 BIOTIN Inactive [facility] 3 MG TABS Take 1 tablet at bedtime. 2013 [facility] M[facility] 3 MG TABS 413912 MELATONIN Inactive ZOFRAN ODT 4 MG TBDP 1 po q6hr PRN Nausea ZOFRAN ODT 4 MG TBDP 191436 ONDANSETRON Inactive ORTHO TRI-CYCLEN (28) 0.18/0.215/0.25 MG-35 MCG TABS 1 daily ORTHO TRI-CYCLEN (28) 0.18/0.215/0.25 MG-35 MCG TABS 822502 NORGESTIM-ETH ESTRAD TRIPHASIC Inactive CLARITIN 10 MG TAB 1 tablet by mouth daily as needed for itchy r khari CLARITIN 10 MG TAB 666391 LORATADINE Inactive ORTHO TRI-CYCLEN (28) 0.18/0.215/0.25 MG-35 MCG TABS 1 daily ORTHO TRI-CYCLEN (28) 0.18/0.215/0.25 MG-35 MCG TABS 802293 NORGESTIM-ETH ESTRAD TRIPHASIC Inactive HYDROXYZINE HCL 25 MG TABS Take 1-2 tablets daily 2015 HYDROXYZINE HCL 25 MG TABS 026101 HYDROXYZINE HCL Inactive LORATADINE 10 MG TABS 1 tablet by mouth daily LORATADINE 10 MG TABS 785005 LORATADINE Inactive AMOXICILLIN 500 MG CAPS 2 po BID x 10 days AMOXICILLIN 500 MG CAPS 900488 AMOXICILLIN Inactive ZITHROMAX Z-CHACE 250 MG TABS 2 today, then 1 daily for 4 days 201 10/06/11 ZITHROMAX Z-CHACE 250 MG TABS 0952019 AZITHROMYCIN Inac tive AUGMENTIN 875-125 MG TAB 1 po BID x 10 days with food AUGMENTIN 875-125 MG TAB 569653 AMOXICILLIN-POT CLAVULANATE Inactiv e Advance Directives Directive [...] 18 yo)) Fluzone preservative free (>3 yrs.) [[id number]] Influenza, seasonal, injectable, preservative free MPSV4 (meningococcal polysaccharide vaccination) Menactra meningococcal polysaccharide vaccine (MPSV4) hepatitis A immunization #1 Havrix-Pedi hepa titis A vaccine, unspecified formulation Adacel (Tetanus, reduced Diphtheria, and acellular Per tussis Immunization) Adacel [[id number]] tetanus toxoid, reduced diph theria toxoid, and [...] 11 .0-15.0 platelet count 210 THOUSAND/UL 10*3/mm3 157-038 1462/11/02 mean platelet volume 10.3 fL 7.5-11.5 Lab [...] ative Encounters Code Encounter Date Provider Facility CPT-24169 Level 2 Est. Patient 12:43:40 CDT Ned Navarrete MD [facility] CPT-22152 Level 3 Est. Patient 14:38:48 CDT Toni duque DO [facility] CPT-88824 Level 3 Est. Patient 09:02:58 MEDICAID PLAN COMPLIANCE DIRECTOR George paulson MD [facility] CPT-77208 Level 3 Est. Patient 17:42:32 CDT Ned Navarrete MD [facility] CPT-59317 Level 3 Est. Patient 11:04:31 MEDICAID PLAN COMPLIANCE DIRECTOR Mariana Torrez APRN [facility] CPT-45197 Level 4 Est. Patient 12:27:05 MEDICAID PLAN COMPLIANCE DIRECTOR Ned Navarrete MD [facility] CPT-60080 Level 3 Est. Patient 11:31:58 MEDICAID PLAN COMPLIANCE DIRECTOR Ned Navarrete MD [facility] CPT-64277 Level 3 Est. Patient 16:49:32 CDT Ned Navarrete MD [facility] CPT-86354 Level 4 Est. Patient 14:11:59 MEDICAID PLAN COMPLIANCE DIRECTOR Saskia green MD PhD [facility] CPT-29349 Level 3 Est. Patient 17:34:25 CDT Ned Navarrete MD [facility] CPT-89052 Level 3 Est. Patient 17:34:19 CDT Ned Navarrete MD [facility] CPT-77533 Level 3 Est. Patient 13:46:05 CDT Ned Navarrete MD [facility] CPT-39656 Level 3 Est. Patient 16:55:47 MEDICAID PLAN COMPLIANCE DIRECTOR Ned Navarrete MD [facility] CPT-65439 Level 2 Est. Patient 17:33:08 MEDICAID PLAN COMPLIANCE DIRECTOR Ned Navarrete MD [facility] CPT-48560 Level 3 Est. Patient 16:25:26 MEDICAID PLAN COMPLIANCE DIRECTOR Ned Navarrete MD [facility] Procedures Code Procedure Name Date Entry Date Standard Desc ription CPT-39357 Visit 16:49:41 MEDICAID PLAN COMPLIANCE DIRECTOR CPT-43841 Sono OB limited - XRAY USE ONLY 16:38:01 CS T CPT-28017 Sono OB comp > 14 weeks - XRAY USE ONLY 17:00:59 MEDICAID PLAN COMPLIANCE DIRECTOR CPT-65065 UA w micro - LAB USE ONLY 16:59:38 CDT 2015 CPT-17900 TSH - LAB USE ONLY 16:59:38 CDT CPT-97458 Venipuncture Draw Fee 16:59:38 CDT CPT-92677 Spec Collection and Handling Fee 14:01:24 C DT CPT-10008 Visit 14:01:24 CDT CPT[facility] Screen 14:03:18 CDT CPT-[facility] Med Screen 11:04:57 CDT CPT-[facility] Med Screen 10:29:44 CDT CPT-70720 Administration 2+ single or combination vaccines inc oral 14:02:47 MEDICAID PLAN COMPLIANCE DIRECTOR CPT-55495 Administration single or combination vac cine inc oral 14:02:47 MEDICAID PLAN COMPLIANCE DIRECTOR CPT-94762 Hepatitis A ped/adol 2 dose schedule 14:02:47 MEDICAID PLAN COMPLIANCE DIRECTOR CPT-59849 Gardasil 14:02:47 MEDICAID PLAN COMPLIANCE DIRECTOR CPT-91501 Administration single or combination vac cine inc oral 11:40:38 MEDICAID PLAN COMPLIANCE DIRECTOR CPT-41694 Gardasil 11:40:38 MEDICAID PLAN COMPLIANCE DIRECTOR CPT-54551 Administration single or combination vac cine inc oral 09:45:00 CDT CPT-34651 Influenza Preservative Free split virus >age 3 09:45:00 CDT CPT-85732 Venipuncture Draw Fee 07:59:02 CDT
--- OUTSIDE RECORDS SUMMARY | 2019-10-10 20:50 | XMS REPORT | Clinical Summary ---
Author Author Admin, Son Chan Organization [employer] Address Unknown Phone Unavailable Allergies, Adverse Reactions, [...] [facility] LRT 22 weeks gestation of ICD-V28.9 Ina tialexandra [facility] LRT CONCUSSION WITH NO LOSS OF CONSCIOUSNESS ICD-850.0 Inactive Ned Navarrete MD Medication List Medication Instructions Start Date Stop Date Generic Name [facility] [place]NOTE 2] Status Provider Patient Instruction PREDNISONE 20 MG TABS Take 2 daily for 3 days and then 1 herman ly for 3 days PREDNISONE 29526475610 Active Ned Navarrete MD Active CEPHALEXIN 500 MG ORAL CAPS CEPHALEXIN 56927393619 No Longer Active Ned Navarrete MD Active LATUDA 20 MG ORAL TABS LURASIDONE HCL 4449118 0230 Active Breanne Madl DOWELING MACHINE OPERATOR Active LORATADINE 10 MG TABS 1 tablet by mouth daily L ORATADINE 75255851081 No Longer Active Breanne Madl DOWELING MACHINE OPERATOR Active HYDROXYZINE HCL 25 MG TABS Take 1-2 tablets daily 2015 HYDROXYZINE HCL 33291535285 No Longer Active Breanne Madl DOWELING MACHINE OPERATOR Active ORTHO TRI-CYCLEN (28) 0.18/0.215/0.25 MG-35 MCG TABS 1 daily NORGESTIM-ETH ESTRAD TRIPHASIC 26779994106 No Longer Active Breanne Madl DOWELING MACHINE OPERATOR Active CLARITIN 10 MG TAB 1 tablet by mouth daily as needed for itchy r khari LORATADINE 77588177224 No Longer Active Ned Navarrete MD Active AUGMENTIN 875-125 MG TAB 1 po BID x 10 days with food AMOXICILLIN-POT CLAVULANATE 35637320527 No Longer Active Toni Washington DO Active ORTHO TRI-CYCLEN (28) 0.18/0.215/0.25 MG-35 MCG TABS 1 daily NORGESTIM-ETH ESTRAD TRIPHASIC 46188811596 No Longer Active Ned Navarrete MD Active ZOFRAN ODT 4 MG TBDP 1 po q6hr PRN Nausea ONDAN SETRON 56281398955 No Longer Active Ned Navarrete MD Active [facility] 3 MG TABS Take 1 tablet at bedtime. 2013 MELATONIN 39452869313 No Longer Active Ned Navarrete MD Activ e BIOTIN 1000 MCG TABS Take 2 tablets daily BIOTI N 51727049657 No Longer Active Ned Navarrete MD Active OMEPRAZOLE 20 MG CPDR 1 tablet by mouth daily O MEPRAZOLE 85191216289 No Longer Active Mariana Moses APRN Active LATUDA 80 MG TABS 1 tablet daily LURASIDONE HCL 85572329101 No Longer Active Mariana Moses APRN Active ZOVIRAX 400 MG TABS Take 1 tablet every 8 hours as needed 2 ACYCLOVIR 14387975701 No Longer Active Ned Navarrete MD Activ e ZITHROMAX Z-CHACE 250 MG TABS 2 today, then 1 daily for 4 days 201 10/06/11 AZITHROMYCIN 53790106410 No Longer Active Ned Navarrete MD Active TOPAMAX 100 MG TABS 1 tablet daily TOPIRAMATE 54 092851727 No Longer Active Ned Navarrete MD Active AMOXICILLIN 500 MG CAPS 2 po BID x 10 days AMOX ICILLIN 60605360055 No Longer Active Saskia Simon MD PhD Active NAPROSYN 375 MG TAB 1 twice a day as needed for chest pain 04/01 NAPROXEN 86687599148 No Longer Active Saskia Simon MD PhD Active HYDROCORTISONE 2.5 % EXT CREA Apply three times a day to aff ected area HYDROCORTISONE 13158372827 No Longer Active Ned Navarrete MD Active TOPIRAMATE 50 MG TABS 1 QD TOPIRAMATE 63335386615 No Longer Active Ned Navarrete MD Active FANAPT 6 MG TABS 1 BID ILOPERIDONE 91013930882 No L onger Active Ned Navarrete MD Active CIPROFLOXACIN HCL 0.3 % SOLN 1 drop in right eye every 2 hours for 2 days, then 1 drop four times a day CIPROFLOXACIN HCL 89004836441 No Longer Active Ned Navarrete MD Active LORATADINE 10 MG TABS 1 tablet by mouth daily L ORATADINE 58643762174 No Longer Active Ned Navarrete MD Active RANITIDINE HCL 150 MG CAPS 1 twice a day RANITI DINE HCL 61833470686 No Longer Active Ned Navarrete MD Active RANITIDINE HCL 150 MG CAPS 1 twice a day RANITIDINE HCL 150 MG CAPS 965827 RANITIDINE HCL Inactive LORATADINE 10 MG TABS 1 tablet by mouth daily LORATADINE 10 MG TABS 976333 LORATADINE Inactive CIPROFLOXACIN HCL 0.3 % SOLN 1 drop in right eye every 2 hours for 2 days, then 1 drop four times a day CIPROFLOXACIN HCL 0.3 % SOLN 282313 CIPROFLOXACIN HCL Inactive FANAPT 6 MG TABS 1 BID FANAPT 6 MG TABS ILO PERIDONE Inactive TOPIRAMATE 50 MG TABS 1 QD TOPIRAMATE 50 MG TABS 1 52065 TOPIRAMATE Inactive HYDROCORTISONE 2.5 % EXT CREA Apply three times a day to aff ected area HYDROCORTISONE 2.5 % EXT CREA 742347 HYDROCORTIS ONE Inactive NAPROSYN 375 MG TAB 1 twice a day as needed for chest pain 04/01 NAPROSYN 375 MG TAB NAPROXEN Inactive TOPAMAX 100 MG TABS 1 tablet daily TOPAMAX 100 MG TABS 884268 TOPIRAMATE Inactive ZOVIRAX 400 MG TABS Take 1 tablet every 8 hours as needed 2 ZOVIRAX 400 MG TABS 444281 ACYCLOVIR Inactive LATUDA 80 MG TABS 1 tablet daily LATUDA 80 MG TA BS LURASIDONE HCL Inactive OMEPRAZOLE 20 MG CPDR 1 tablet by mouth daily OMEPRAZOLE 20 MG CPDR 258611 OMEPRAZOLE Inactive BIOTIN 1000 MCG TABS Take 2 tablets daily BIOTIN 1000 MCG TABS 805543 BIOTIN Inactive [facility] M[facility] 3 MG TABS Take 1 tablet at bedtime. 2013 [facility] MEL[facility] 3 MG TABS 588890 MELATONIN Inactive ZOFRAN ODT 4 MG TBDP 1 po q6hr PRN Nausea ZOFRAN ODT 4 MG TBDP 735222 ONDANSETRON Inactive ORTHO TRI-CYCLEN (28) 0.18/0.215/0.25 MG-35 MCG TABS 1 daily ORTHO TRI-CYCLEN (28) 0.18/0.215/0.25 MG-35 MCG TABS 606440 NORGESTIM-ETH ESTRAD TRIPHASIC Inactive CLARITIN 10 MG TAB 1 tablet by mouth daily as needed for itchy r khari CLARITIN 10 MG TAB 352600 LORATADINE Inactive ORTHO TRI-CYCLEN (28) 0.18/0.215/0.25 MG-35 MCG TABS 1 daily ORTHO TRI-CYCLEN (28) 0.18/0.215/0.25 MG-35 MCG TABS 065739 NORGESTIM-ETH ESTRAD TRIPHASIC Inactive HYDROXYZINE HCL 25 MG TABS Take 1-2 tablets daily 2015 HYDROXYZINE HCL 25 MG TABS 506619 HYDROXYZINE HCL Inactive LORATADINE 10 MG TABS 1 tablet by mouth daily LORATADINE 10 MG TABS 480195 LORATADINE Inactive CEPHALEXIN 500 MG ORAL CAPS CEPHALEX IN 500 MG ORAL CAPS 495020 CEPHALEXIN Inactive AMOXICILLIN 500 MG CAPS 2 po BID x 10 days AMOXICILLIN 500 MG CAPS 388619 AMOXICILLIN Inactive ZITHROMAX Z-CHACE 250 MG TABS 2 today, then 1 daily for 4 days 201 10/06/11 ZITHROMAX Z-CHACE 250 MG TABS 5603555 AZITHROMYCIN Inac tive AUGMENTIN 875-125 MG TAB 1 po BID x 10 days with food AUGMENTIN 875-125 MG TAB 643578 AMOXICILLIN-POT CLAVULANATE Inactiv e Advance Directives Directive [...] 18 yo)) Fluzone preservative free (>3 yrs.) [[id number]] Influenza, seasonal, injectable, preservative free MPSV4 (meningococcal polysaccharide vaccination) Menactra meningococcal polysaccharide vaccine (MPSV4) hepatitis A immunization #1 Havrix-Pedi hepa titis A vaccine, unspecified formulation Adacel (Tetanus, reduced Diphtheria, and acellular Per tussis Immunization) Adacel [[id number]] tetanus toxoid, reduced diph theria toxoid, and [...] pressure, diastolic - 8462-4 66 mm[Hg] BP mihcele blood pressure, systolic - 8480-6 99 mm[Hg] [...] 11 .0-15.0 platelet count 210 THOUSAND/UL 10*3/mm3 812-118 4092/11/02 mean platelet volume 10.3 fL 7.5-11.5 Lab [...] ative Encounters Code Encounter Date Provider Facility CPT-89403 Level 3 Est. Patient 15:35:51 ASSOCIATE AUTOMATION ENGINEER Ned Navarrete MD [facility] CPT-70153 Level 2 Est. Patient 12:43:40 CDT Ned Navarrete MD [facility]-86905 Level 3 Est. Patient 14:38:48 CDT Toni duque DO [facility]-73430 Level 3 Est. Patient 09:02:58 ASSOCIATE AUTOMATION ENGINEER George paulson MD [facility] CPT-32939 Level 3 Est. Patient 17:42:32 CDT Ned Navarrete MD [facility]-71405 Level 3 Est. Patient 11:04:31 ASSOCIATE AUTOMATION ENGINEER Mariana Torrez APRN [facility] CPT-99103 Level 4 Est. Patient 12:27:05 ASSOCIATE AUTOMATION ENGINEER Ned Navarrete MD [facility]-49414 Level 3 Est. Patient 11:31:58 ASSOCIATE AUTOMATION ENGINEER Ned Navarrete MD [facility] CPT-14493 Level 3 Est. Patient 16:49:32 CDT Ned Navarrete MD [facility]-87321 Level 4 Est. Patient 14:11:59 ASSOCIATE AUTOMATION ENGINEER Saskia green MD PhD [facility] CPT-94511 Level 3 Est. Patient 17:34:25 CDT Ned Navarrete MD [facility]-45641 Level 3 Est. Patient 17:34:19 CDT Ned Navarrete MD [facility] CPT-03600 Level 3 Est. Patient 13:46:05 CDT Ned Navarrete MD [facility] CPT-93578 Level 3 Est. Patient 16:55:47 ASSOCIATE AUTOMATION ENGINEER Ned Navarrete MD [facility] CPT-29651 Level 2 Est. Patient 17:33:08 ASSOCIATE AUTOMATION ENGINEER Ned Navarrete MD [facility] CPT-13773 Level 3 Est. Patient 16:25:26 ASSOCIATE AUTOMATION ENGINEER Ned Navarrete MD [facility] Procedures Code Procedure Name Date Entry Date Standard Desc ription CPT-78475 Visit 16:49:41 ASSOCIATE AUTOMATION ENGINEER CPT-10468 Sono OB limited - XRAY USE ONLY 16:38:01 CS T CPT-16390 Sono OB comp > 14 weeks - XRAY USE ONLY 17:00:59 ASSOCIATE AUTOMATION ENGINEER CPT-46982 UA w micro - LAB USE ONLY 16:59:38 CDT 2015 CPT-62432 TSH - LAB USE ONLY 16:59:38 CDT CPT-40586 Venipuncture Draw Fee 16:59:38 CDT CPT-05313 Spec Collection and Handling Fee 14:01:24 C DT CPT-31662 Visit 14:01:24 CDT CPT-033 KB Med Screen 14:03:18 CDT CPT-033 KB Med Screen 11:04:57 CDT CPT-033 KB Med Screen 10:29:44 CDT CPT-63754 Administration 2+ single or combination vaccines inc oral 14:02:47 ASSOCIATE AUTOMATION ENGINEER CPT-59861 Administration single or combination vac cine inc oral 14:02:47 ASSOCIATE AUTOMATION ENGINEER CPT-45697 Hepatitis A ped/adol 2 dose schedule 14:02:47 ASSOCIATE AUTOMATION ENGINEER CPT-73156 Gardasil 14:02:47 ASSOCIATE AUTOMATION ENGINEER CPT-50457 Administration single or combination vac cine inc oral 11:40:38 ASSOCIATE AUTOMATION ENGINEER CPT-50734 Gardasil 11:40:38 ASSOCIATE AUTOMATION ENGINEER CPT-51655 Administration single or combination vac cine inc oral 09:45:00 CDT CPT-57565 Influenza Preservative Free split virus >age 3 09:45:00 CDT CPT-43173 Venipuncture Draw Fee 07:59:02 CDT
--- OUTSIDE RECORDS SUMMARY | 2019-10-10 20:50 | XMS REPORT | Clinical Summary ---
Author Author Admin, Son Rodriguez [facility] Address Unknown Phone Unavailable Allergies, [...] of nasolacrimal duct, acquired CONTRACEPTION V25.09 Active Nde Navarrete MD Encounter for other general counseling [...] 305.70 Inactive [facility] Amphetamine or related [...] 1 herman ly for 3 days PREDNISONE 31339501795 No Longer Active Ned pérez MD Active CEPHALEXIN 500 MG ORAL CAPS CEPHALEXIN 20636802513 No Longer Active Ned Navarrete MD Active LATUDA 20 MG ORAL TABS LURASIDONE HCL 5109235 0230 Active Breanne Madl GYM INSTRUCTOR Active LORATADINE 10 MG TABS 1 tablet by mouth daily L ORATADINE 10642554628 No Longer Active Breanne Madl GYM INSTRUCTOR Active HYDROXYZINE HCL 25 MG TABS Take 1-2 tablets daily 2015 HYDROXYZINE HCL 80300956527 No Longer Active Breanne Madl GYM INSTRUCTOR Active ORTHO TRI-CYCLEN (28) 0.18/0.215/0.25 MG-35 MCG TABS 1 daily NORGESTIM-ETH ESTRAD TRIPHASIC 16032919431 No Longer Active Breanne Madl GYM INSTRUCTOR Active CLARITIN 10 MG TAB 1 tablet by mouth daily as needed for itchy r khari LORATADINE 72627812048 No Longer Active Ned Navarrete MD Active AUGMENTIN 875-125 MG TAB 1 po BID x 10 days with food AMOXICILLIN-POT CLAVULANATE 94404358353 No Longer Active Toni Washington DO Active ORTHO TRI-CYCLEN (28) 0.18/0.215/0.25 MG-35 MCG TABS 1 daily NORGESTIM-ETH ESTRAD TRIPHASIC 88035428664 No Longer Active Ned Navarrete MD Active ZOFRAN ODT 4 MG TBDP 1 po q6hr PRN Nausea ONDAN SETRON 84121678013 No Longer Active Ned Navarrete MD Active [facility] MEL[facility] 3 MG TABS Take 1 tablet at bedtime. 2013 MELATONIN 04638155982 No Longer Active Ned Navarrete MD Activ e BIOTIN 1000 MCG TABS Take 2 tablets daily BIOTI N 13503443938 No Longer Active Ned Navarrete MD Active OMEPRAZOLE 20 MG CPDR 1 tablet by mouth daily O MEPRAZOLE 61285866085 No Longer Active Mariana Moses APRN Active LATUDA 80 MG TABS 1 tablet daily LURASIDONE HCL 19415710320 No Longer Active Mariana Moses APRN Active ZOVIRAX 400 MG TABS Take 1 tablet every 8 hours as needed 2 ACYCLOVIR 65319325629 No Longer Active Ned Navarrete MD Activ e ZITHROMAX Z-CHACE 250 MG TABS 2 today, then 1 daily for 4 days 201 10/06/11 AZITHROMYCIN 94027738197 No Longer Active Ned Navarrete MD Active TOPAMAX 100 MG TABS 1 tablet daily TOPIRAMATE 54 687808248 No Longer Active Ned Navarrete MD Active AMOXICILLIN 500 MG CAPS 2 po BID x 10 days AMOX ICILLIN 20583997987 No Longer Active Saskia Simon MD PhD Active NAPROSYN 375 MG TAB 1 twice a day as needed for chest pain 04/01 NAPROXEN 73508586722 No Longer Active Saskia Simon MD PhD Active HYDROCORTISONE 2.5 % EXT CREA Apply three times a day to aff ected area HYDROCORTISONE 41694458197 No Longer Active Ned Navarrete MD Active TOPIRAMATE 50 MG TABS 1 QD TOPIRAMATE 91436296769 No Longer Active Ned Navarrete MD Active FANAPT 6 MG TABS 1 BID ILOPERIDONE 87523657583 No L onger Active Ned Navarrete MD Active CIPROFLOXACIN HCL 0.3 % SOLN 1 drop in right eye every 2 hours for 2 days, then 1 drop four times a day CIPROFLOXACIN HCL 52963016204 No Longer Active Ned Navarrete MD Active LORATADINE 10 MG TABS 1 tablet by mouth daily L ORATADINE 19190463815 No Longer Active Ned Navarrete MD Active RANITIDINE HCL 150 MG CAPS 1 twice a day RANITI DINE HCL 85749191575 No Longer Active Ned Navarrete MD Active RANITIDINE HCL 150 MG CAPS 1 twice a day RANITIDINE HCL 150 MG CAPS 211834 RANITIDINE HCL Inactive LORATADINE 10 MG TABS 1 tablet by mouth daily LORATADINE 10 MG TABS 919235 LORATADINE Inactive CIPROFLOXACIN HCL 0.3 % SOLN 1 drop in right eye every 2 hours for 2 days, then 1 drop four times a day CIPROFLOXACIN HCL 0.3 % SOLN 275190 CIPROFLOXACIN HCL Inactive FANAPT 6 MG TABS 1 BID FANAPT 6 MG TABS ILO PERIDONE Inactive TOPIRAMATE 50 MG TABS 1 QD TOPIRAMATE 50 MG TABS 1 27382 TOPIRAMATE Inactive HYDROCORTISONE 2.5 % EXT CREA Apply three times a day to aff ected area HYDROCORTISONE 2.5 % EXT CREA 439780 HYDROCORTIS ONE Inactive NAPROSYN 375 MG TAB 1 twice a day as needed for chest pain 04/01 NAPROSYN 375 MG TAB NAPROXEN Inactive TOPAMAX 100 MG TABS 1 tablet daily TOPAMAX 100 MG TABS 589433 TOPIRAMATE Inactive ZOVIRAX 400 MG TABS Take 1 tablet every 8 hours as needed 2 ZOVIRAX 400 MG TABS 226283 ACYCLOVIR Inactive LATUDA 80 MG TABS 1 tablet daily LATUDA 80 MG TA BS LURASIDONE HCL Inactive OMEPRAZOLE 20 MG CPDR 1 tablet by mouth daily OMEPRAZOLE 20 MG CPDR 572852 OMEPRAZOLE Inactive BIOTIN 1000 MCG TABS Take 2 tablets daily BIOTIN 1000 MCG TABS 302702 BIOTIN Inactive [facility] 3 MG TABS Take 1 tablet at bedtime. 2013 [facility] M[facility] 3 MG TABS 860731 MELATONIN Inactive ZOFRAN ODT 4 MG TBDP 1 po q6hr PRN Nausea ZOFRAN ODT 4 MG TBDP 979598 ONDANSETRON Inactive ORTHO TRI-CYCLEN (28) 0.18/0.215/0.25 MG-35 MCG TABS 1 daily ORTHO TRI-CYCLEN (28) 0.18/0.215/0.25 MG-35 MCG TABS 460050 NORGESTIM-ETH ESTRAD TRIPHASIC Inactive CLARITIN 10 MG TAB 1 tablet by mouth daily as needed for itchy r khari CLARITIN 10 MG TAB 066749 LORATADINE Inactive ORTHO TRI-CYCLEN (28) 0.18/0.215/0.25 MG-35 MCG TABS 1 daily ORTHO TRI-CYCLEN (28) 0.18/0.215/0.25 MG-35 MCG TABS 959571 NORGESTIM-ETH ESTRAD TRIPHASIC Inactive HYDROXYZINE HCL 25 MG TABS Take 1-2 tablets daily 2015 HYDROXYZINE HCL 25 MG TABS 587574 HYDROXYZINE HCL Inactive LORATADINE 10 MG TABS 1 tablet by mouth daily LORATADINE 10 MG TABS 618257 LORATADINE Inactive CEPHALEXIN 500 MG ORAL CAPS CEPHALEX IN 500 MG ORAL CAPS 294304 CEPHALEXIN Inactive PREDNISONE 20 MG TABS Take 2 daily for 3 days and then 1 herman ly for 3 days PREDNISONE 20 MG TABS 512682 PREDNISONE Inacti ve AMOXICILLIN 500 MG CAPS 2 po BID x 10 days AMOXICILLIN 500 MG CAPS 021960 AMOXICILLIN Inactive ZITHROMAX Z-CHACE 250 MG TABS 2 today, then 1 daily for 4 days 201 10/06/11 ZITHROMAX Z-CHACE 250 MG TABS 3811987 AZITHROMYCIN Inac tive AUGMENTIN 875-125 MG TAB 1 po BID x 10 days with food AUGMENTIN 875-125 MG TAB 755156 AMOXICILLIN-POT CLAVULANATE Inactiv e Advance Directives Directive [...] 18 yo)) Fluzone preservative free (>3 yrs.) [[id number]] Influenza, seasonal, injectable, preservative free MPSV4 (meningococcal polysaccharide vaccination) Menactra meningococcal polysaccharide vaccine (MPSV4) hepatitis A immunization #1 Havrix-Pedi hepa titis A vaccine, unspecified formulation Adacel (Tetanus, reduced Diphtheria, and acellular Per tussis Immunization) Adacel [[id number]] tetanus toxoid, reduced diph theria toxoid, and [...] 11 .0-15.0 platelet count 210 THOUSAND/UL 10*3/mm3 048-545 1765/11/02 mean platelet volume 10.3 fL 7.5-11.5 Lab [...] N Encounters Code Encounter Date Provider Facility CPT-84373 Level 3 Est. Patient 15:21:38 SENIOR COMPLIANCE ANALYST Rayna Pepper APRN [facility] CPT-09339 Level 3 Est. Patient 15:35:51 SENIOR COMPLIANCE ANALYST Ned Navarrete MD [facility] CPT-82463 Level 2 Est. Patient 12:43:40 CDT Ned Navarrete MD [facility] CPT-70856 Level 3 Est. Patient 14:38:48 CDT Toni duque DO [facility] CPT-66046 Level 3 Est. Patient 09:02:58 SENIOR COMPLIANCE ANALYST George paulson MD [facility] CPT-74077 Level 3 Est. Patient 17:42:32 CDT Ned Navarrete MD [facility] CPT-22636 Level 3 Est. Patient 11:04:31 SENIOR COMPLIANCE ANALYST Mariana Torrez ALEXIS [facility] CPT-74587 Level 4 Est. Patient 12:27:05 SENIOR COMPLIANCE ANALYST Ned Navarrete MD [facility] CPT-84897 Level 3 Est. Patient 11:31:58 SENIOR COMPLIANCE ANALYST Ned Navarrete MD [facility] CPT-12458 Level 3 Est. Patient 16:49:32 CDT Ned Navarrete MD [facility] CPT-85017 Level 4 Est. Patient 14:11:59 SENIOR COMPLIANCE ANALYST Saskia green MD PhD [facility] CPT-81525 Level 3 Est. Patient 17:34:25 CDT Ned Navarrete MD [facility] CPT-93762 Level 3 Est. Patient 17:34:19 CDT Ned Navarrete MD [facility] CPT-03072 Level 3 Est. Patient 13:46:05 CDT Ned Navarrete MD [facility] CPT-30699 Level 3 Est. Patient 16:55:47 SENIOR COMPLIANCE ANALYST Ned Navarrete MD [facility] CPT-30258 Level 2 Est. Patient 17:33:08 SENIOR COMPLIANCE ANALYST Ned Navarrete MD [facility] CPT-95873 Level 3 Est. Patient 16:25:26 SENIOR COMPLIANCE ANALYST Ned Navarrete MD [facility] Procedures Code Procedure Name Date Entry Date Standard Desc ription CPT-09329 OBGTT 1 - LAB USE ONLY 10:15:57 CDT CPT-33758 Venipuncture Draw Fee 10:15:57 CDT CPT-39158 Visit 15:07:16 SENIOR COMPLIANCE ANALYST CPT-51268 Visit 16:49:41 SENIOR COMPLIANCE ANALYST CPT-66855 Sono OB limited - XRAY USE ONLY 16:38:01 CS T CPT-54223 Sono OB comp > 14 weeks - XRAY USE ONLY 17:00:59 SENIOR COMPLIANCE ANALYST CPT-32108 UA w micro - LAB USE ONLY 16:59:38 CDT 2015 CPT-29250 TSH - LAB USE ONLY 16:59:38 CDT CPT-47202 Venipuncture Draw Fee 16:59:38 CDT CPT-22853 Spec Collection and Handling Fee 14:01:24 C DT CPT-46916 Visit 14:01:24 CDT CPT-033 KB Med Screen 14:03:18 CDT CPT-033 KB Med Screen 11:04:57 CDT CPT-033 KB Med Screen 10:29:44 CDT CPT-65952 Administration 2+ single or combination vaccines inc oral 14:02:47 SENIOR COMPLIANCE ANALYST CPT-65181 Administration single or combination vac cine inc oral 14:02:47 SENIOR COMPLIANCE ANALYST CPT-54922 Hepatitis A ped/adol 2 dose schedule 14:02:47 SENIOR COMPLIANCE ANALYST CPT-43719 Gardasil 14:02:47 SENIOR COMPLIANCE ANALYST CPT-30610 Administration single or combination vac cine inc oral 11:40:38 SENIOR COMPLIANCE ANALYST CPT-59270 Gardasil 11:40:38 SENIOR COMPLIANCE ANALYST CPT-46257 Administration single or combination vac cine inc oral 09:45:00 CDT CPT-74486 Influenza Preservative Free split virus >age 3 09:45:00 CDT CPT-90971 Venipuncture Draw Fee 07:59:02 CDT
--- OUTSIDE RECORDS SUMMARY | 2019-10-10 20:51 | XMS REPORT | Clinical Summary ---
Author Author Beka, Son Chan Organization [employer] Address Unknown Phone Unavailable Allergies, Adverse Reactions, [...] as needed for itchy r khari LORATADINE 82216090453 Active Toni Washington DO Active AUGMENTIN 875-125 MG TAB 1 po BID x 10 days with food AMOXICILLIN-POT CLAVULANATE 69669155342 No Longer Active Toni Washington DO Active ORTHO TRI-CYCLEN (28) 0.18/0.215/0.25 MG-35 MCG TABS 1 daily 2 NORGESTIM-ETH ESTRAD TRIPHASIC 65821296627 Active Leana Bowles Active ORTHO TRI-CYCLEN (28) 0.18/0.215/0.25 MG-35 MCG TABS 1 daily NORGESTIM-ETH ESTRAD TRIPHASIC 92834887011 No Longer Active Ned Navarrete MD Active ZOFRAN ODT 4 MG TBDP 1 po q6hr PRN Nausea ONDAN SETRON 46775930011 No Longer Active Ned Navarrete MD Active [facility] MELAT[facility] 3 MG TABS Take 1 tablet at bedtime. 2013 MELATONIN 70764340472 No Longer Active Ned Navarrete MD Activ e BIOTIN 1000 MCG TABS Take 2 tablets daily BIOTI N 71330148349 No Longer Active Ned Navarrete MD Active OMEPRAZOLE 20 MG CPDR 1 tablet by mouth daily O MEPRAZOLE 50789350196 No Longer Active Mariana Moses APRN Active LATUDA 80 MG TABS 1 tablet daily LURASIDONE HCL 60627661530 No Longer Active Mariana Moses APRN Active ZOVIRAX 400 MG TABS Take 1 tablet every 8 hours as needed 2 ACYCLOVIR 38876881184 No Longer Active Ned Navarrete MD Activ e ZITHROMAX Z-CHACE 250 MG TABS 2 today, then 1 daily for 4 days 201 10/06/11 AZITHROMYCIN 00348210916 No Longer Active Ned Navarrete MD Active HYDROXYZINE HCL 25 MG TABS Take 1-2 tablets daily HYDROXYZINE HCL 08511739824 Active Ned Navarrete MD Active TOPAMAX 100 MG TABS 1 tablet daily TOPIRAMATE 54 085626517 No Longer Active Ned Navarrete MD Active AMOXICILLIN 500 MG CAPS 2 po BID x 10 days AMOX ICILLIN 12857432674 No Longer Active Saskia Simon MD PhD Active NAPROSYN 375 MG TAB 1 twice a day as needed for chest pain 04/01 NAPROXEN 47223174241 No Longer Active Saskia Simon MD PhD Active HYDROCORTISONE 2.5 % EXT CREA Apply three times a day to aff ected area HYDROCORTISONE 37107875058 No Longer Active Ned Navarrete MD Active LORATADINE 10 MG TABS 1 tablet by mouth daily L ORATADINE 92156375362 Active Crystal Bowles Active TOPIRAMATE 50 MG TABS 1 QD TOPIRAMATE 50106125895 No Longer Active Ned Navarrete MD Active FANAPT 6 MG TABS 1 BID ILOPERIDONE 17042627741 No L onger Active Ned Navarrete MD Active CIPROFLOXACIN HCL 0.3 % SOLN 1 drop in right eye every 2 hours for 2 days, then 1 drop four times a day CIPROFLOXACIN HCL 52417236311 No Longer Active Ned Navarrete MD Active LORATADINE 10 MG TABS 1 tablet by mouth daily L ORATADINE 70668093708 No Longer Active Ned Navarrete MD Active RANITIDINE HCL 150 MG CAPS 1 twice a day RANITI DINE HCL 13200938341 No Longer Active Ned Navarrete MD Active RANITIDINE HCL 150 MG CAPS 1 twice a day RANITIDINE HCL 150 MG CAPS 251907 RANITIDINE HCL Inactive LORATADINE 10 MG TABS 1 tablet by mouth daily LORATADINE 10 MG TABS 528442 LORATADINE Inactive CIPROFLOXACIN HCL 0.3 % SOLN 1 drop in right eye every 2 hours for 2 days, then 1 drop four times a day CIPROFLOXACIN HCL 0.3 % SOLN 253352 CIPROFLOXACIN HCL Inactive FANAPT 6 MG TABS 1 BID FANAPT 6 MG TABS ILO PERIDONE Inactive TOPIRAMATE 50 MG TABS 1 QD TOPIRAMATE 50 MG TABS 1 00928 TOPIRAMATE Inactive HYDROCORTISONE 2.5 % EXT CREA Apply three times a day to aff ected area HYDROCORTISONE 2.5 % EXT CREA 691530 HYDROCORTIS ONE Inactive NAPROSYN 375 MG TAB 1 twice a day as needed for chest pain 04/01 NAPROSYN 375 MG TAB NAPROXEN Inactive TOPAMAX 100 MG TABS 1 tablet daily TOPAMAX 100 MG TABS 837378 TOPIRAMATE Inactive ZOVIRAX 400 MG TABS Take 1 tablet every 8 hours as needed 2 ZOVIRAX 400 MG TABS 19720728 ACYCLOVIR Inactive LATUDA 80 MG TABS 1 tablet daily LATUDA 80 MG TA BS LURASIDONE HCL Inactive OMEPRAZOLE 20 MG CPDR 1 tablet by mouth daily OMEPRAZOLE 20 MG CPDR 485442 OMEPRAZOLE Inactive BIOTIN 1000 MCG TABS Take 2 tablets daily BIOTIN 1000 MCG TABS 998872 BIOTIN Inactive [facility] MEL[facility] 3 MG TABS Take 1 tablet at bedtime. 2013 [facility] MEL[facility] 3 MG TABS 221322 MELATONIN Inactive ZOFRAN ODT 4 MG TBDP 1 po q6hr PRN Nausea ZOFRAN ODT 4 MG TBDP 806821 ONDANSETRON Inactive ORTHO TRI-CYCLEN (28) 0.18/0.215/0.25 MG-35 MCG TABS 1 daily ORTHO TRI-CYCLEN (28) 0.18/0.215/0.25 MG-35 MCG TABS 676676 NORGESTIM-ETH ESTRAD TRIPHASIC Inactive AMOXICILLIN 500 MG CAPS 2 po BID x 10 days AMOXICILLIN 500 MG CAPS 282005 AMOXICILLIN Inactive ZITHROMAX Z-CHACE 250 MG TABS 2 today, then 1 daily for 4 days 201 10/06/11 ZITHROMAX Z-CHACE 250 MG TABS 1657355 AZITHROMYCIN Inac tive AUGMENTIN 875-125 MG TAB 1 po BID x 10 days with food AUGMENTIN 875-125 MG TAB 986213 AMOXICILLIN-POT CLAVULANATE Inactiv e Advance Directives Directive [...] 18 yo)) Fluzone preservative free (>3 yrs.) [[id number]] Influenza, seasonal, injectable, preservative free MPSV4 (meningococcal polysaccharide vaccination) Menactra meningococcal polysaccharide vaccine (MPSV4) hepatitis A immunization #1 Havrix-Pedi hepa titis A vaccine, unspecified formulation Adacel (Tetanus, reduced Diphtheria, and acellular Per tussis Immunization) Adacel [[id number]] tetanus toxoid, reduced diph theria toxoid, and [...] Measured Encounters Code Encounter Date Provider Facility CPT-62111 Level 3 Est. Patient 14:38:48 CDT Toni duque DO [facility] CPT-76000 Level 3 Est. Patient 09:02:58 COW TRIMMER George paulson MD [facility] CPT-35160 Level 3 Est. Patient 17:42:32 CDT Ned Navarrete MD [facility] CPT-64034 Level 3 Est. Patient 11:04:31 COW TRIMMER Mariana Torrez APRN [facility] CPT-69625 Level 4 Est. Patient 12:27:05 COW TRIMMER Ned Navarrete MD [facility] CPT-04248 Level 3 Est. Patient 11:31:58 COW TRIMMER Ned Navarrete MD [facility] CPT-00554 Level 3 Est. Patient 16:49:32 CDT Ned Navarrete MD [facility] CPT-84126 Level 4 Est. Patient 14:11:59 COW TRIMMER Saskia green MD PhD [facility] CPT-96242 Level 3 Est. Patient 17:34:25 CDT Ned Navarrete MD [facility] CPT-48995 Level 3 Est. Patient 17:34:19 CDT Ned Navarrete MD [facility] CPT-76492 Level 3 Est. Patient 13:46:05 CDT Ned Navarrete MD [facility] CPT-90920 Level 3 Est. Patient 16:55:47 COW TRIMMER Ned Navarrete MD [facility] CPT-94635 Level 2 Est. Patient 17:33:08 COW TRIMMER Ned Navarrete MD [facility] CPT-18469 Level 3 Est. Patient 16:25:26 COW TRIMMER Ned Navarrete MD [facility] Procedures Code Procedure Name Date Entry Date Standard Desc ription CPT-033 [facility] Med Screen 11:04:57 CDT CPT-033 [facility] Med Screen 10:29:44 CDT CPT-02706 Administration 2+ single or combination vaccines inc oral 14:02:47 COW TRIMMER CPT-65586 Administration single or combination vac cine inc oral 14:02:47 COW TRIMMER CPT-29790 Hepatitis A ped/adol 2 dose schedule 14:02:47 COW TRIMMER CPT-66972 Gardasil 14:02:47 COW TRIMMER CPT-64123 Administration single or combination vac cine inc oral 11:40:38 COW TRIMMER CPT-57186 Gardasil 11:40:38 COW TRIMMER CPT-53378 Administration single or combination vac cine inc oral 09:45:00 CDT CPT-45410 Influenza Preservative Free split virus >age 3 09:45:00 CDT CPT-15849 Venipuncture Draw Fee 07:59:02 CDT
--- OUTSIDE RECORDS SUMMARY | 2019-10-10 20:51 | XMS REPORT | Clinical Summary ---
Author Author Admin, Son Chan Organization [employer] Address Unknown Phone Unavailable Allergies, Adverse Reactions, [...] probl ems, third trimester V23.89 Active Rayna Peppre APRN Ot er high-risk Drug use complicating [...] 1 herman ly for 3 days PREDNISONE 13215639588 No Longer Active Ned pérez MD Active CEPHALEXIN 500 MG ORAL CAPS CEPHALEXIN 45515715394 No Longer Active Ned Navarrete MD Active LATUDA 20 MG ORAL TABS LURASIDONE HCL 1181801 0230 Active Breanne Madl RUG CUTTER Active LORATADINE 10 MG TABS 1 tablet by mouth daily L ORATADINE 75357798810 No Longer Active Breanne Madl RUG CUTTER Active HYDROXYZINE HCL 25 MG TABS Take 1-2 tablets daily 2015 HYDROXYZINE HCL 66372178876 No Longer Active Breanne Madl RUG CUTTER Active ORTHO TRI-CYCLEN (28) 0.18/0.215/0.25 MG-35 MCG TABS 1 daily NORGESTIM-ETH ESTRAD TRIPHASIC 36149671065 No Longer Active Breanne Madl RUG CUTTER Active CLARITIN 10 MG TAB 1 tablet by mouth daily as needed for itchy r khari LORATADINE 49720247795 No Longer Active Ned Navarrete MD Active AUGMENTIN 875-125 MG TAB 1 po BID x 10 days with food AMOXICILLIN-POT CLAVULANATE 05673454900 No Longer Active Toni Washington DO Active ORTHO TRI-CYCLEN (28) 0.18/0.215/0.25 MG-35 MCG TABS 1 daily NORGESTIM-ETH ESTRAD TRIPHASIC 34149852915 No Longer Active Ned Navarrete MD Active ZOFRAN ODT 4 MG TBDP 1 po q6hr PRN Nausea ONDAN SETRON 44951961069 No Longer Active Ned Navarrete MD Active [facility] MELAT[facility] 3 MG TABS Take 1 tablet at bedtime. 2013 MELATONIN 78752744018 No Longer Active Ned Navarrete MD Activ e BIOTIN 1000 MCG TABS Take 2 tablets daily BIOTI N 01397057110 No Longer Active Ned Navarrete MD Active OMEPRAZOLE 20 MG CPDR 1 tablet by mouth daily O MEPRAZOLE 29878621051 No Longer Active Mariana Moses APRN Active LATUDA 80 MG TABS 1 tablet daily LURASIDONE HCL 43874632993 No Longer Active Mariana Moses APRN Active ZOVIRAX 400 MG TABS Take 1 tablet every 8 hours as needed 2 ACYCLOVIR 33619653964 No Longer Active Ned Navarrete MD Activ e ZITHROMAX Z-CHACE 250 MG TABS 2 today, then 1 daily for 4 days 201 10/06/11 AZITHROMYCIN 43186443344 No Longer Active Ned Navarrete MD Active TOPAMAX 100 MG TABS 1 tablet daily TOPIRAMATE 54 984850736 No Longer Active Ned Navarrete MD Active AMOXICILLIN 500 MG CAPS 2 po BID x 10 days AMOX ICILLIN 63410919611 No Longer Active Saskia Simon MD PhD Active NAPROSYN 375 MG TAB 1 twice a day as needed for chest pain 04/01 NAPROXEN 32572842845 No Longer Active Saskia Simon MD PhD Active HYDROCORTISONE 2.5 % EXT CREA Apply three times a day to aff ected area HYDROCORTISONE 58366931426 No Longer Active Ned Navarrete MD Active TOPIRAMATE 50 MG TABS 1 QD TOPIRAMATE 71055512234 No Longer Active Ned Navarrete MD Active FANAPT 6 MG TABS 1 BID ILOPERIDONE 81806766402 No L onger Active Ned Navarrete MD Active CIPROFLOXACIN HCL 0.3 % SOLN 1 drop in right eye every 2 hours for 2 days, then 1 drop four times a day CIPROFLOXACIN HCL 33885320772 No Longer Active Ned Navarrete MD Active LORATADINE 10 MG TABS 1 tablet by mouth daily L ORATADINE 17135045760 No Longer Active Ned Navarrete MD Active RANITIDINE HCL 150 MG CAPS 1 twice a day RANITI DINE HCL 10000096999 No Longer Active Ned Navarrete MD Active RANITIDINE HCL 150 MG CAPS 1 twice a day RANITIDINE HCL 150 MG CAPS 561589 RANITIDINE HCL Inactive LORATADINE 10 MG TABS 1 tablet by mouth daily LORATADINE 10 MG TABS 756447 LORATADINE Inactive CIPROFLOXACIN HCL 0.3 % SOLN 1 drop in right eye every 2 hours for 2 days, then 1 drop four times a day CIPROFLOXACIN HCL 0.3 % SOLN 747678 CIPROFLOXACIN HCL Inactive FANAPT 6 MG TABS 1 BID FANAPT 6 MG TABS ILO PERIDONE Inactive TOPIRAMATE 50 MG TABS 1 QD TOPIRAMATE 50 MG TABS 1 36134 TOPIRAMATE Inactive HYDROCORTISONE 2.5 % EXT CREA Apply three times a day to aff ected area HYDROCORTISONE 2.5 % EXT CREA 736242 HYDROCORTIS ONE Inactive NAPROSYN 375 MG TAB 1 twice a day as needed for chest pain 04/01 NAPROSYN 375 MG TAB NAPROXEN Inactive TOPAMAX 100 MG TABS 1 tablet daily TOPAMAX 100 MG TABS 056301 TOPIRAMATE Inactive ZOVIRAX 400 MG TABS Take 1 tablet every 8 hours as needed 2 ZOVIRAX 400 MG TABS 338732 ACYCLOVIR Inactive LATUDA 80 MG TABS 1 tablet daily LATUDA 80 MG TA BS LURASIDONE HCL Inactive OMEPRAZOLE 20 MG CPDR 1 tablet by mouth daily OMEPRAZOLE 20 MG CPDR 381498 OMEPRAZOLE Inactive BIOTIN 1000 MCG TABS Take 2 tablets daily BIOTIN 1000 MCG TABS 654669 BIOTIN Inactive [facility] MEL[facility]IN 3 MG TABS Take 1 tablet at bedtime. 2013 [facility] MEL[facility]IN 3 MG TABS 754853 MELATONIN Inactive ZOFRAN ODT 4 MG TBDP 1 po q6hr PRN Nausea ZOFRAN ODT 4 MG TBDP 344102 ONDANSETRON Inactive ORTHO TRI-CYCLEN (28) 0.18/0.215/0.25 MG-35 MCG TABS 1 daily ORTHO TRI-CYCLEN (28) 0.18/0.215/0.25 MG-35 MCG TABS 648927 NORGESTIM-ETH ESTRAD TRIPHASIC Inactive CLARITIN 10 MG TAB 1 tablet by mouth daily as needed for itchy r khari CLARITIN 10 MG TAB 365767 LORATADINE Inactive ORTHO TRI-CYCLEN (28) 0.18/0.215/0.25 MG-35 MCG TABS 1 daily ORTHO TRI-CYCLEN (28) 0.18/0.215/0.25 MG-35 MCG TABS 089095 NORGESTIM-ETH ESTRAD TRIPHASIC Inactive HYDROXYZINE HCL 25 MG TABS Take 1-2 tablets daily 2015 HYDROXYZINE HCL 25 MG TABS 431400 HYDROXYZINE HCL Inactive LORATADINE 10 MG TABS 1 tablet by mouth daily LORATADINE 10 MG TABS 075155 LORATADINE Inactive CEPHALEXIN 500 MG ORAL CAPS CEPHALEX IN 500 MG ORAL CAPS 103338 CEPHALEXIN Inactive PREDNISONE 20 MG TABS Take 2 daily for 3 days and then 1 herman ly for 3 days PREDNISONE 20 MG TABS 767213 PREDNISONE Inacti ve AMOXICILLIN 500 MG CAPS 2 po BID x 10 days AMOXICILLIN 500 MG CAPS 215127 AMOXICILLIN Inactive ZITHROMAX Z-CHACE 250 MG TABS 2 today, then 1 daily for 4 days 201 10/06/11 ZITHROMAX Z-CHACE 250 MG TABS 9595357 AZITHROMYCIN Inac tive AUGMENTIN 875-125 MG TAB 1 po BID x 10 days with food AUGMENTIN 875-125 MG TAB 679971 AMOXICILLIN-POT CLAVULANATE Inactiv e Advance Directives Directive [...] 18 yo)) Fluzone preservative free (>3 yrs.) [[id number]] Influenza, seasonal, injectable, preservative free MPSV4 (meningococcal polysaccharide vaccination) Menactra meningococcal polysaccharide vaccine (MPSV4) hepatitis A immunization #1 Havrix-Pedi hepa titis A vaccine, unspecified formulation Adacel (Tetanus, reduced Diphtheria, and acellular Per tussis Immunization) Adacel [[id number]] tetanus toxoid, reduced diph theria toxoid, and [...] 11 .0-15.0 platelet count 210 THOUSAND/UL 10*3/mm3 187-764 2593/11/02 mean platelet volume 10.3 fL 7.5-11.5 Lab [...] N Encounters Code Encounter Date Provider Facility CPT-58768 Level 3 Est. Patient 15:21:38 STALLION MANAGER Rayna Pepper APRN [facility] CPT-59716 Level 3 Est. Patient 15:35:51 STALLION MANAGER Ned Navarrete MD [facility] CPT-70358 Level 2 Est. Patient 12:43:40 CDT Ned Navarrete MD [facility] CPT-32586 Level 3 Est. Patient 14:38:48 CDT Toni duque DO [facility] CPT-21601 Level 3 Est. Patient 09:02:58 STALLION MANAGER George paulson MD [facility] CPT-36109 Level 3 Est. Patient 17:42:32 CDT Ned Navarrete MD [facility] CPT-02547 Level 3 Est. Patient 11:04:31 STALLION MANAGER Mariana Trorez ALEXIS [facility] CPT-62652 Level 4 Est. Patient 12:27:05 STALLION MANAGER Ned Navarrete MD [facility] CPT-66654 Level 3 Est. Patient 11:31:58 STALLION MANAGER Ned Navarrete MD [facility] CPT-87180 Level 3 Est. Patient 16:49:32 CDT Ned Navarrete MD [facility] CPT-89255 Level 4 Est. Patient 14:11:59 STALLION MANAGER Saskia green MD PhD [facility] CPT-52287 Level 3 Est. Patient 17:34:25 CDT Ned Navarrete MD [facility] CPT-99220 Level 3 Est. Patient 17:34:19 CDT Ned Navarrete MD [facility] CPT-80052 Level 3 Est. Patient 13:46:05 CDT Ned Navarrete MD [facility] CPT-95004 Level 3 Est. Patient 16:55:47 STALLION MANAGER Ned Navarrete MD [facility] CPT-28396 Level 2 Est. Patient 17:33:08 STALLION MANAGER Ned Navarrete MD [facility] CPT-52452 Level 3 Est. Patient 16:25:26 STALLION MANAGER Ned Navarrete MD [facility] Procedures Code Procedure Name Date Entry Date Standard Desc ription CPT-88516 Visit 15:07:16 STALLION MANAGER CPT-10289 Visit 16:49:41 STALLION MANAGER CPT-28289 Sono OB limited - XRAY USE ONLY 16:38:01 CS T CPT-19197 Sono OB comp > 14 weeks - XRAY USE ONLY 17:00:59 STALLION MANAGER CPT-73096 UA w micro - LAB USE ONLY 16:59:38 CDT 2015 CPT-93886 TSH - LAB USE ONLY 16:59:38 CDT CPT-25652 Venipuncture Draw Fee 16:59:38 CDT CPT-20406 Spec Collection and Handling Fee 14:01:24 C DT CPT-75762 Visit 14:01:24 CDT CPT-033 [facility] Med Screen 14:03:18 CDT CPT-033 [facility] Med Screen 11:04:57 CDT CPT-033 [facility] Med Screen 10:29:44 CDT CPT-22688 Administration 2+ single or combination vaccines inc oral 14:02:47 STALLION MANAGER CPT-39891 Administration single or combination vac cine inc oral 14:02:47 STALLION MANAGER CPT-67551 Hepatitis A ped/adol 2 dose schedule 14:02:47 STALLION MANAGER CPT-10783 Gardasil 14:02:47 STALLION MANAGER CPT-95281 Administration single or combination vac cine inc oral 11:40:38 STALLION MANAGER CPT-44498 Gardasil 11:40:38 STALLION MANAGER CPT-85676 Administration single or combination vac cine inc oral 09:45:00 CDT CPT-01157 Influenza Preservative Free split virus >age 3 09:45:00 CDT CPT-76186 Venipuncture Draw Fee 07:59:02 CDT
--- OUTSIDE RECORDS SUMMARY | 2019-10-10 20:51 | XMS REPORT | Clinical Summary ---
Author Author Admin, Son Rodriguez [facility] Address Unknown Phone Unavailable [...] condition or complication Methamphetamine abuse 305.70 Inactive [facility] [place] [facility] Amphetamine or [...] 1 herman ly for 3 days PREDNISONE 99353657381 No Longer Active Ned pérez MD Active CEPHALEXIN 500 MG ORAL CAPS CEPHALEXIN 29597337245 No Longer Active Ned Navarrete MD Active LATUDA 20 MG ORAL TABS LURASIDONE HCL 0328382 0230 Active Breanne Madl VIDEO PRODUCTION ASSISTANT Active LORATADINE 10 MG TABS 1 tablet by mouth daily L ORATADINE 71436042357 No Longer Active Breanne Madl VIDEO PRODUCTION ASSISTANT Active HYDROXYZINE HCL 25 MG TABS Take 1-2 tablets daily 2015 HYDROXYZINE HCL 15937210759 No Longer Active Breanne Madl VIDEO PRODUCTION ASSISTANT Active ORTHO TRI-CYCLEN (28) 0.18/0.215/0.25 MG-35 MCG TABS 1 daily NORGESTIM-ETH ESTRAD TRIPHASIC 75010601910 No Longer Active Breanne Madl VIDEO PRODUCTION ASSISTANT Active CLARITIN 10 MG TAB 1 tablet by mouth daily as needed for itchy r khari LORATADINE 32097770173 No Longer Active Ned Navarrete MD Active AUGMENTIN 875-125 MG TAB 1 po BID x 10 days with food AMOXICILLIN-POT CLAVULANATE 04575680083 No Longer Active Toni Washington DO Active ORTHO TRI-CYCLEN (28) 0.18/0.215/0.25 MG-35 MCG TABS 1 daily NORGESTIM-ETH ESTRAD TRIPHASIC 94845839514 No Longer Active Ned Navarrete MD Active ZOFRAN ODT 4 MG TBDP 1 po q6hr PRN Nausea ONDAN SETRON 88774983435 No Longer Active Ned Navarrete MD Active [facility] 3 MG TABS Take 1 tablet at bedtime. 2013 MELATONIN 80512547529 No Longer Active Ned Navarrete MD Activ e BIOTIN 1000 MCG TABS Take 2 tablets daily BIOTI N 21956201774 No Longer Active Ned Navarrete MD Active OMEPRAZOLE 20 MG CPDR 1 tablet by mouth daily O MEPRAZOLE 70576231211 No Longer Active Mariana Moses APRN Active LATUDA 80 MG TABS 1 tablet daily LURASIDONE HCL 53933932823 No Longer Active Mariana Moses APRN Active ZOVIRAX 400 MG TABS Take 1 tablet every 8 hours as needed 2 ACYCLOVIR 41080760924 No Longer Active Ned Navarrete MD Activ e ZITHROMAX Z-CHACE 250 MG TABS 2 today, then 1 daily for 4 days 201 10/06/11 AZITHROMYCIN 33429309338 No Longer Active Ned Navarrete MD Active TOPAMAX 100 MG TABS 1 tablet daily TOPIRAMATE 54 835241240 No Longer Active Ned Navarrete MD Active AMOXICILLIN 500 MG CAPS 2 po BID x 10 days AMOX ICILLIN 23303941570 No Longer Active Saskia Simon MD PhD Active NAPROSYN 375 MG TAB 1 twice a day as needed for chest pain 04/01 NAPROXEN 47591165593 No Longer Active Saskia Simon MD PhD Active HYDROCORTISONE 2.5 % EXT CREA Apply three times a day to aff ected area HYDROCORTISONE 64150858084 No Longer Active Ned Navarrete MD Active TOPIRAMATE 50 MG TABS 1 QD TOPIRAMATE 22720587739 No Longer Active Ned Navarrete MD Active FANAPT 6 MG TABS 1 BID ILOPERIDONE 60468728726 No L onger Active Ned Navarrete MD Active CIPROFLOXACIN HCL 0.3 % SOLN 1 drop in right eye every 2 hours for 2 days, then 1 drop four times a day CIPROFLOXACIN HCL 54121665159 No Longer Active Ned Navarrete MD Active LORATADINE 10 MG TABS 1 tablet by mouth daily L ORATADINE 59852027594 No Longer Active Ned Navarrete MD Active RANITIDINE HCL 150 MG CAPS 1 twice a day RANITI DINE HCL 78004964931 No Longer Active Ned Navarrete MD Active RANITIDINE HCL 150 MG CAPS 1 twice a day RANITIDINE HCL 150 MG CAPS 097221 RANITIDINE HCL Inactive LORATADINE 10 MG TABS 1 tablet by mouth daily LORATADINE 10 MG TABS 901992 LORATADINE Inactive CIPROFLOXACIN HCL 0.3 % SOLN 1 drop in right eye every 2 hours for 2 days, then 1 drop four times a day CIPROFLOXACIN HCL 0.3 % SOLN 529423 CIPROFLOXACIN HCL Inactive FANAPT 6 MG TABS 1 BID FANAPT 6 MG TABS ILO PERIDONE Inactive TOPIRAMATE 50 MG TABS 1 QD TOPIRAMATE 50 MG TABS 1 57816 TOPIRAMATE Inactive HYDROCORTISONE 2.5 % EXT CREA Apply three times a day to aff ected area HYDROCORTISONE 2.5 % EXT CREA 159620 HYDROCORTIS ONE Inactive NAPROSYN 375 MG TAB 1 twice a day as needed for chest pain 04/01 NAPROSYN 375 MG TAB NAPROXEN Inactive TOPAMAX 100 MG TABS 1 tablet daily TOPAMAX 100 MG TABS 400986 TOPIRAMATE Inactive ZOVIRAX 400 MG TABS Take 1 tablet every 8 hours as needed 2 ZOVIRAX 400 MG TABS 793428 ACYCLOVIR Inactive LATUDA 80 MG TABS 1 tablet daily LATUDA 80 MG TA BS LURASIDONE HCL Inactive OMEPRAZOLE 20 MG CPDR 1 tablet by mouth daily OMEPRAZOLE 20 MG CPDR 984491 OMEPRAZOLE Inactive BIOTIN 1000 MCG TABS Take 2 tablets daily BIOTIN 1000 MCG TABS 759971 BIOTIN Inactive [facility] M[facility] 3 MG TABS Take 1 tablet at bedtime. 2013 [facility] MEL[facility] 3 MG TABS 514207 MELATONIN Inactive ZOFRAN ODT 4 MG TBDP 1 po q6hr PRN Nausea ZOFRAN ODT 4 MG TBDP 744493 ONDANSETRON Inactive ORTHO TRI-CYCLEN (28) 0.18/0.215/0.25 MG-35 MCG TABS 1 daily ORTHO TRI-CYCLEN (28) 0.18/0.215/0.25 MG-35 MCG TABS 479591 NORGESTIM-ETH ESTRAD TRIPHASIC Inactive CLARITIN 10 MG TAB 1 tablet by mouth daily as needed for itchy r khari CLARITIN 10 MG TAB 136933 LORATADINE Inactive ORTHO TRI-CYCLEN (28) 0.18/0.215/0.25 MG-35 MCG TABS 1 daily ORTHO TRI-CYCLEN (28) 0.18/0.215/0.25 MG-35 MCG TABS 863784 NORGESTIM-ETH ESTRAD TRIPHASIC Inactive HYDROXYZINE HCL 25 MG TABS Take 1-2 tablets daily 2015 HYDROXYZINE HCL 25 MG TABS 785682 HYDROXYZINE HCL Inactive LORATADINE 10 MG TABS 1 tablet by mouth daily LORATADINE 10 MG TABS 651462 LORATADINE Inactive CEPHALEXIN 500 MG ORAL CAPS CEPHALEX IN 500 MG ORAL CAPS 391062 CEPHALEXIN Inactive PREDNISONE 20 MG TABS Take 2 daily for 3 days and then 1 herman ly for 3 days PREDNISONE 20 MG TABS 565063 PREDNISONE Inacti ve AMOXICILLIN 500 MG CAPS 2 po BID x 10 days AMOXICILLIN 500 MG CAPS 137514 AMOXICILLIN Inactive ZITHROMAX Z-CHACE 250 MG TABS 2 today, then 1 daily for 4 days 201 10/06/11 ZITHROMAX Z-CHACE 250 MG TABS 7756613 AZITHROMYCIN Inac tive AUGMENTIN 875-125 MG TAB 1 po BID x 10 days with food AUGMENTIN 875-125 MG TAB 299605 AMOXICILLIN-POT CLAVULANATE Inactiv e Advance Directives Directive [...] 18 yo)) Fluzone preservative free (>3 yrs.) [[id number]] Influenza, seasonal, injectable, preservative free MPSV4 (meningococcal polysaccharide vaccination) Menactra meningococcal polysaccharide vaccine (MPSV4) hepatitis A immunization #1 Havrix-Pedi hepa titis A vaccine, unspecified formulation Adacel (Tetanus, reduced Diphtheria, and acellular Per tussis Immunization) Adacel [[id number]] tetanus toxoid, reduced diph theria toxoid, and [...] 11 .0-15.0 platelet count 210 THOUSAND/UL 10*3/mm3 884-695 0689/11/02 mean platelet volume 10.3 fL 7.5-11.5 Lab [...] N Encounters Code Encounter Date Provider Facility CPT-75497 Level 3 Est. Patient 15:21:38 OLIVIA Pepper [facility] CPT-13909 Level 3 Est. Patient 15:35:51 JUKEBOX COIN COLLECTOR Ned Navarrete MD [facility]-11422 Level 2 Est. Patient 12:43:40 CDT Ned Navarrete MD [facility]-74658 Level 3 Est. Patient 14:38:48 CDT Toni duque DO [facility] CPT-04843 Level 3 Est. Patient 09:02:58 JUKEBOX COIN COLLECTOR George paulson MD [facility] CPT-98442 Level 3 Est. Patient 17:42:32 CDT Ned Navarrete MD [facility]-61560 Level 3 Est. Patient 11:04:31 JUKEBOX COIN COLLECTOR Mariana Torrez [facility] CPT-44567 Level 4 Est. Patient 12:27:05 JUKEBOX COIN COLLECTOR Ned Navarrete MD [facility]-21738 Level 3 Est. Patient 11:31:58 JUKEBOX COIN COLLECTOR Ned Navarrete MD [facility] CPT-98723 Level 3 Est. Patient 16:49:32 CDT Ned Navarrete MD [facility]-51901 Level 4 Est. Patient 14:11:59 JUKEBOX COIN COLLECTOR Saskia green MD, PhD [facility] CPT-68275 Level 3 Est. Patient 17:34:25 CDT Ned Navarrete MD [facility] CPT-42224 Level 3 Est. Patient 17:34:19 CDT Ned Navarrete MD [facility]-10557 Level 3 Est. Patient 13:46:05 CDT Ned Navarrete MD [facility]-72473 Level 3 Est. Patient 16:55:47 JUKEBOX COIN COLLECTOR Ned Navarrete MD [facility]-75324 Level 2 Est. Patient 17:33:08 JUKEBOX COIN COLLECTOR Ned Navarrete MD [facility]-49836 Level 3 Est. Patient 16:25:26 JUKEBOX COIN COLLECTOR Ned Navarrete MD [facility] Procedures Code Procedure Name Date Entry Date Standard Desc ription CPT-23969 Visit 14:52:59 CDT CPT-48857 Visit 15:17:20 CDT CPT-43244 Visit 15:57:29 CDT CPT-90725 First Vx - Ix admin via ID I M or jet injects without counseling by physician 15:53:15 CDT CPT-62216 Boostrix Intramuscular Suspension 5-2.5-18.5 201 01/28/11 15:53:14 CDT CPT-32937 Tdap 7yrs or > 14:41:06 CDT CPT-67016 Visit 17:47:08 CDT CPT-32033 OBGTT 1 - LAB USE ONLY 10:15:57 CDT CPT-42554 Venipuncture Draw Fee 10:15:57 CDT CPT-78688 Visit 15:07:16 JUKEBOX COIN COLLECTOR CPT-54088 Visit 16:49:41 JUKEBOX COIN COLLECTOR CPT-92675 Sono OB limited - XRAY USE ONLY 16:38:01 CS T CPT-28099 Sono OB comp > 14 weeks - XRAY USE ONLY 17:00:59 JUKEBOX COIN COLLECTOR CPT-43262 UA w micro - LAB USE ONLY 16:59:38 CDT 2015 CPT-19520 TSH - LAB USE ONLY 16:59:38 CDT CPT-76072 Venipuncture Draw Fee 16:59:38 CDT CPT-87743 Spec Collection and Handling Fee 14:01:24 C DT CPT-55578 Visit 14:01:24 CDT CPT-033 [facility] Med Screen 14:03:18 CDT CPT-033 [facility] Med Screen 11:04:57 CDT CPT-033 [facility] Med Screen 10:29:44 CDT CPT-14347 Administration 2+ single or combination vaccines inc oral 14:02:47 JUKEBOX COIN COLLECTOR CPT-40176 Administration single or combination vac cine inc oral 14:02:47 JUKEBOX COIN COLLECTOR CPT-00196 Hepatitis A ped/adol 2 dose schedule 14:02:47 JUKEBOX COIN COLLECTOR CPT-46964 Gardasil 14:02:47 JUKEBOX COIN COLLECTOR CPT-20241 Administration single or combination vac cine inc oral 11:40:38 JUKEBOX COIN COLLECTOR CPT-90030 Gardasil 11:40:38 JUKEBOX COIN COLLECTOR CPT-12736 Administration single or combination vac cine inc oral 09:45:00 CDT CPT-31696 Influenza Preservative Free split virus >age 3 09:45:00 CDT CPT-22949 Venipuncture Draw Fee 07:59:02 CDT
--- OUTSIDE RECORDS SUMMARY | 2019-10-10 20:51 | XMS REPORT | Clinical Summary ---
Author Author Admin, Son Chan [facility] [employer] Address Unknown Phone Unavailable Allergies, Adverse Reactions, [...] Ned Navarrete MD Supervision of other normal NASOLACRIMAL DUCT OBSTRUCTION, LEFT ICD-375.56 Inactive Ned Navarrete MD ANKLE SPRAIN ICD-845.00 Inactive Ned manley MD NASOLACRIMAL DUCT OBSTRUCTION, RIGHT ICD-375.56 Inactive Ned Navarrete MD WEIGHT GAIN ICD-783.1 Inactive Ned Navarrete MD DERMATITIS, ALLERGIC ICD-692.9 Inactive Saskia Simon MD PhD VISUAL CHANGES ICD-368.10 Inactive Ned Prescott MD COSTOCHONDRITIS ICD-733.6 Inactive Saskia Simon MD PhD CONCUSSION WITH NO LOSS OF CONSCIOUSNESS ICD-850.0 Inactive Ned Navarrete MD Gastroenteritis ICD-558.9 Inactive Ned Prescott MD Gastroenteritis Inactive George Frances MD SINUSITIS, ACUTE ICD-461.9 Inactive Ned pérez MD Pharyngitis, acute ICD-462 Inactive Ned Navarrete MD Medication List Medication Instructions Start Date Stop Date Generic Name NDC Status Provider Patient Instruction LATUDA 20 MG ORAL TABS LURASIDONE HCL 8451159 0230 Active Breanne Madl SEISMIC PROSPECTING OBSERVER HELPER Active CEPHALEXIN 500 MG ORAL CAPS CEPHALEXIN 105804 22523 Active Breanne Madl SEISMIC PROSPECTING OBSERVER HELPER Active LORATADINE 10 MG TABS 1 tablet by mouth daily L ORATADINE 52375087853 No Longer Active Breanne Madl SEISMIC PROSPECTING OBSERVER HELPER Active HYDROXYZINE HCL 25 MG TABS Take 1-2 tablets daily 2015 HYDROXYZINE HCL 34611058809 No Longer Active Breanne Madl SEISMIC PROSPECTING OBSERVER HELPER Active ORTHO TRI-CYCLEN (28) 0.18/0.215/0.25 MG-35 MCG TABS 1 daily NORGESTIM-ETH ESTRAD TRIPHASIC 44166053644 No Longer Active Breanne Madl SEISMIC PROSPECTING OBSERVER HELPER Active CLARITIN 10 MG TAB 1 tablet by mouth daily as needed for itchy r khari LORATADINE 23357817238 No Longer Active Ned Navarrete MD Active AUGMENTIN 875-125 MG TAB 1 po BID x 10 days with food AMOXICILLIN-POT CLAVULANATE 44386707611 No Longer Active Toni Washington DO Active ORTHO TRI-CYCLEN (28) 0.18/0.215/0.25 MG-35 MCG TABS 1 daily NORGESTIM-ETH ESTRAD TRIPHASIC 04677297667 No Longer Active Ned Navarrete MD Active ZOFRAN ODT 4 MG TBDP 1 po q6hr PRN Nausea ONDAN SETRON 89990396384 No Longer Active Ned Navarrete MD Active [facility] MEL[facility] 3 MG TABS Take 1 tablet at bedtime. 2013 MELATONIN 07774750777 No Longer Active Ned Navarrete MD Activ e BIOTIN 1000 MCG TABS Take 2 tablets daily BIOTI N 16702055823 No Longer Active Ned Navarrete MD Active OMEPRAZOLE 20 MG CPDR 1 tablet by mouth daily O MEPRAZOLE 33567515114 No Longer Active Mariana Moses APRN Active LATUDA 80 MG TABS 1 tablet daily LURASIDONE HCL 95117951335 No Longer Active Mariana Moses APRN Active ZOVIRAX 400 MG TABS Take 1 tablet every 8 hours as needed 2 ACYCLOVIR 00774523087 No Longer Active Ned Navarrete MD Activ e ZITHROMAX Z-CHACE 250 MG TABS 2 today, then 1 daily for 4 days 201 10/06/11 AZITHROMYCIN 42381560904 No Longer Active Ned Navarrete MD Active TOPAMAX 100 MG TABS 1 tablet daily TOPIRAMATE 54 579700448 No Longer Active Ned Navarrete MD Active AMOXICILLIN 500 MG CAPS 2 po BID x 10 days AMOX ICILLIN 19486389942 No Longer Active Saskia Simon MD PhD Active NAPROSYN 375 MG TAB 1 twice a day as needed for chest pain 04/01 NAPROXEN 88381676445 No Longer Active Saskia Simon MD PhD Active HYDROCORTISONE 2.5 % EXT CREA Apply three times a day to aff ected area HYDROCORTISONE 21532274235 No Longer Active Ned Navarrete MD Active TOPIRAMATE 50 MG TABS 1 QD TOPIRAMATE 39812221145 No Longer Active Ned Navarrete MD Active FANAPT 6 MG TABS 1 BID ILOPERIDONE 71970485639 No L onger Active Ned Navarrete MD Active CIPROFLOXACIN HCL 0.3 % SOLN 1 drop in right eye every 2 hours for 2 days, then 1 drop four times a day CIPROFLOXACIN HCL 92639767859 No Longer Active Ned Navarrete MD Active LORATADINE 10 MG TABS 1 tablet by mouth daily L ORATADINE 14867518558 No Longer Active Ned Navarrete MD Active RANITIDINE HCL 150 MG CAPS 1 twice a day RANITI DINE HCL 49166331567 No Longer Active Ned Navarrete MD Active RANITIDINE HCL 150 MG CAPS 1 twice a day RANITIDINE HCL 150 MG CAPS 411560 RANITIDINE HCL Inactive LORATADINE 10 MG TABS 1 tablet by mouth daily LORATADINE 10 MG TABS 575572 LORATADINE Inactive CIPROFLOXACIN HCL 0.3 % SOLN 1 drop in right eye every 2 hours for 2 days, then 1 drop four times a day CIPROFLOXACIN HCL 0.3 % SOLN 955653 CIPROFLOXACIN HCL Inactive FANAPT 6 MG TABS 1 BID FANAPT 6 MG TABS ILO PERIDONE Inactive TOPIRAMATE 50 MG TABS 1 QD TOPIRAMATE 50 MG TABS 1 03023 TOPIRAMATE Inactive HYDROCORTISONE 2.5 % EXT CREA Apply three times a day to aff ected area HYDROCORTISONE 2.5 % EXT CREA 657467 HYDROCORTIS ONE Inactive NAPROSYN 375 MG TAB 1 twice a day as needed for chest pain 04/01 NAPROSYN 375 MG TAB NAPROXEN Inactive TOPAMAX 100 MG TABS 1 tablet daily TOPAMAX 100 MG TABS 270408 TOPIRAMATE Inactive ZOVIRAX 400 MG TABS Take 1 tablet every 8 hours as needed ZOVIRAX 400 MG TABS 911908 ACYCLOVIR Inactive LATUDA 80 MG TABS 1 tablet daily LATUDA 80 MG TA BS LURASIDONE HCL Inactive OMEPRAZOLE 20 MG CPDR 1 tablet by mouth daily OMEPRAZOLE 20 MG CPDR 725608 OMEPRAZOLE Inactive BIOTIN 1000 MCG TABS Take 2 tablets daily BIOTIN 1000 MCG TABS 485524 BIOTIN Inactive [facility] MEL[facility]IN 3 MG TABS Take 1 tablet at bedtime. 2013 [facility] MELATONIN 3 MG TABS 500958 MELATONIN Inactive ZOFRAN ODT 4 MG TBDP 1 po q6hr PRN Nausea ZOFRAN ODT 4 MG TBDP 426009 ONDANSETRON Inactive ORTHO TRI-CYCLEN (28) 0.18/0.215/0.25 MG-35 MCG TABS 1 daily ORTHO TRI-CYCLEN (28) 0.18/0.215/0.25 MG-35 MCG TABS 055616 NORGESTIM-ETH ESTRAD TRIPHASIC Inactive CLARITIN 10 MG TAB 1 tablet by mouth daily as needed for itchy r khari CLARITIN 10 MG TAB 134673 LORATADINE Inactive ORTHO TRI-CYCLEN (28) 0.18/0.215/0.25 MG-35 MCG TABS 1 daily ORTHO TRI-CYCLEN (28) 0.18/0.215/0.25 MG-35 MCG TABS 796732 NORGESTIM-ETH ESTRAD TRIPHASIC Inactive HYDROXYZINE HCL 25 MG TABS Take 1-2 tablets daily 2015 HYDROXYZINE HCL 25 MG TABS 004325 HYDROXYZINE HCL Inactive LORATADINE 10 MG TABS 1 tablet by mouth daily LORATADINE 10 MG TABS 763635 LORATADINE Inactive AMOXICILLIN 500 MG CAPS 2 po BID x 10 days AMOXICILLIN 500 MG CAPS 576117 AMOXICILLIN Inactive ZITHROMAX Z-CHACE 250 MG TABS 2 today, then 1 daily for 4 days 201 10/06/11 ZITHROMAX Z-CHACE 250 MG TABS 2956049 AZITHROMYCIN Inac tive AUGMENTIN 875-125 MG TAB 1 po BID x 10 days with food AUGMENTIN 875-125 MG TAB 035947 AMOXICILLIN-POT CLAVULANATE Inactiv e Advance Directives Directive [...] 18 yo)) Fluzone preservative free (>3 yrs.) [[id number]] Influenza, seasonal, injectable, preservative free hepatitis A immunization #1 Havrix-Pedi hepa titis A vaccine, unspecified formulation MPSV4 (meningococcal polysaccharide vaccination) Menactra meningococcal polysaccharide vaccine (MPSV4) Adacel (Tetanus, reduced Diphtheria, and acellular Per tussis Immunization) Adacel [[id number]] tetanus toxoid, reduced diph theria toxoid, and [...] 5.0-8.5 Encounters Code Encounter Date Provider Facility CPT-92967 Level 2 Est. Patient 12:43:40 CDT Ned Navarrete MD [facility] [place]-94378 Level 3 Est. Patient 14:38:48 CDT Toni duque DO [facility] [place]-98500 Level 3 Est. Patient 09:02:58 DIRECTOR OF MEDICAL STAFF SERVICES George paulson MD [facility]-80098 Level 3 Est. Patient 17:42:32 CDT Ned Navarrete MD [facility]-84249 Level 3 Est. Patient 11:04:31 DIRECTOR OF MEDICAL STAFF SERVICES Mariana Torrez APRN [facility]-85075 Level 4 Est. Patient 12:27:05 DIRECTOR OF MEDICAL STAFF SERVICES Ned Navarrete MD [facility]-11366 Level 3 Est. Patient 11:31:58 DIRECTOR OF MEDICAL STAFF SERVICES Ned Navarrete MD [facility]-91135 Level 3 Est. Patient 16:49:32 CDT Ned Navarrete MD [facility]-60432 Level 4 Est. Patient 14:11:59 DIRECTOR OF MEDICAL STAFF SERVICES Saskia green MD PhD [facility]-34647 Level 3 Est. Patient 17:34:25 CDT Ned Navarrete MD [facility]-29247 Level 3 Est. Patient 17:34:19 CDT Ned Navarrete MD [facility]45094 Level 3 Est. Patient 13:46:05 CDT Ned Navarrete MD [facility]-49138 Level 3 Est. Patient 16:55:47 DIRECTOR OF MEDICAL STAFF SERVICES Ned Navarrete MD [facility] CPT-89243 Level 2 Est. Patient 17:33:08 DIRECTOR OF MEDICAL STAFF SERVICES Ned Navarrete MD [facility] CPT-28232 Level 3 Est. Patient 16:25:26 DIRECTOR OF MEDICAL STAFF SERVICES Ned Navarrete MD [facility] Procedures Code Procedure Name Date Entry Date Standard Desc ription CPT-48082 UA w micro - LAB USE ONLY 16:59:38 CDT 2015 CPT-73119 TSH - LAB USE ONLY 16:59:38 CDT CPT-48430 Venipuncture Draw Fee 16:59:38 CDT CPT-44566 Spec Collection and Handling Fee 14:01:24 C DT CPT-02129 Visit 14:01:24 CDT CPT-033 KB Med Screen 14:03:18 CDT CPT-033 KB Med Screen 11:04:57 CDT CPT-033 KB Med Screen 10:29:44 CDT CPT-94140 Administration 2+ single or combination vaccines inc oral 14:02:47 DIRECTOR OF MEDICAL STAFF SERVICES CPT-95046 Administration single or combination vac cine inc oral 14:02:47 DIRECTOR OF MEDICAL STAFF SERVICES CPT-03833 Hepatitis A ped/adol 2 dose schedule 14:02:47 DIRECTOR OF MEDICAL STAFF SERVICES CPT-20201 Gardasil 14:02:47 DIRECTOR OF MEDICAL STAFF SERVICES CPT-59736 Administration single or combination vac cine inc oral 11:40:38 DIRECTOR OF MEDICAL STAFF SERVICES CPT-17487 Gardasil 11:40:38 DIRECTOR OF MEDICAL STAFF SERVICES CPT-02645 Administration single or combination vac cine inc oral 09:45:00 CDT CPT-59077 Influenza Preservative Free split virus >age 3 09:45:00 CDT CPT-01481 Venipuncture Draw Fee 07:59:02 CDT
--- OUTSIDE RECORDS SUMMARY | 2019-10-10 20:52 | XMS REPORT | Clinical Summary ---
Author Author Admin, Son Chan Organization [employer] Address Unknown Phone Unavailable Allergies, Adverse [...] LATUDA 20 MG ORAL TABS LURASIDONE HCL 1947941 0230 Active Breanne Madl MUFFLER TENDER Active CEPHALEXIN 500 MG ORAL CAPS CEPHALEXIN 215876 94846 Active Breanne Madl MUFFLER TENDER Active LORATADINE 10 MG TABS 1 tablet by mouth daily L ORATADINE 57613498878 No Longer Active Breanne Madl MUFFLER TENDER Active HYDROXYZINE HCL 25 MG TABS Take 1-2 tablets daily 2015 HYDROXYZINE HCL 57543982227 No Longer Active Breanne Madl MUFFLER TENDER Active ORTHO TRI-CYCLEN (28) 0.18/0.215/0.25 MG-35 MCG TABS 1 daily NORGESTIM-ETH ESTRAD TRIPHASIC 72381513948 No Longer Active Brenane Madl MUFFLER TENDER Active CLARITIN 10 MG TAB 1 tablet by mouth daily as needed for itchy r khari LORATADINE 24097348976 No Longer Active Ned Navarrete MD Active AUGMENTIN 875-125 MG TAB 1 po BID x 10 days with food AMOXICILLIN-POT CLAVULANATE 45437731943 No Longer Active Toni Washington DO Active ORTHO TRI-CYCLEN (28) 0.18/0.215/0.25 MG-35 MCG TABS 1 daily NORGESTIM-ETH ESTRAD TRIPHASIC 68769488025 No Longer Active Ned Navarrete MD Active ZOFRAN ODT 4 MG TBDP 1 po q6hr PRN Nausea ONDAN SETRON 27549561011 No Longer Active Ned Navarrete MD Active [facility]EL[facility] 3 MG TABS Take 1 tablet at bedtime. 2013 MELATONIN 32904166801 No Longer Active Ned Navarrete MD Activ e BIOTIN 1000 MCG TABS Take 2 tablets daily BIOTI N 02420762292 No Longer Active Ned Navarrete MD Active OMEPRAZOLE 20 MG CPDR 1 tablet by mouth daily O MEPRAZOLE 90049806527 No Longer Active Mariana Moses APRN Active LATUDA 80 MG TABS 1 tablet daily LURASIDONE HCL 42351476074 No Longer Active Mariana Moses APRN Active ZOVIRAX 400 MG TABS Take 1 tablet every 8 hours as needed 2 ACYCLOVIR 04358160976 No Longer Active Ned Navarrete MD Activ e ZITHROMAX Z-CHACE 250 MG TABS 2 today, then 1 daily for 4 days 201 10/06/11 AZITHROMYCIN 23043287872 No Longer Active Ned Navarrete MD Active TOPAMAX 100 MG TABS 1 tablet daily TOPIRAMATE 54 834882308 No Longer Active Ned Navarrete MD Active AMOXICILLIN 500 MG CAPS 2 po BID x 10 days AMOX ICILLIN 61179135883 No Longer Active Saskia Simon MD PhD Active NAPROSYN 375 MG TAB 1 twice a day as needed for chest pain 04/01 NAPROXEN 37294168117 No Longer Active Saskia Simon MD PhD Active HYDROCORTISONE 2.5 % EXT CREA Apply three times a day to aff ected area HYDROCORTISONE 17427693896 No Longer Active Ned Navarrete MD Active TOPIRAMATE 50 MG TABS 1 QD TOPIRAMATE 23598749995 No Longer Active Ned Navarrete MD Active FANAPT 6 MG TABS 1 BID ILOPERIDONE 24229781821 No L onger Active Ned Navarrete MD Active CIPROFLOXACIN HCL 0.3 % SOLN 1 drop in right eye every 2 hours for 2 days, then 1 drop four times a day CIPROFLOXACIN HCL 41182553661 No Longer Active Ned Navarrete MD Active LORATADINE 10 MG TABS 1 tablet by mouth daily L ORATADINE 93152754805 No Longer Active Ned Navarrete MD Active RANITIDINE HCL 150 MG CAPS 1 twice a day RANITI DINE HCL 33408229530 No Longer Active Ned Navarrete MD Active RANITIDINE HCL 150 MG CAPS 1 twice a day RANITIDINE HCL 150 MG CAPS 339314 RANITIDINE HCL Inactive LORATADINE 10 MG TABS 1 tablet by mouth daily LORATADINE 10 MG TABS 620196 LORATADINE Inactive CIPROFLOXACIN HCL 0.3 % SOLN 1 drop in right eye every 2 hours for 2 days, then 1 drop four times a day CIPROFLOXACIN HCL 0.3 % SOLN 042962 CIPROFLOXACIN HCL Inactive FANAPT 6 MG TABS 1 BID FANAPT 6 MG TABS ILO PERIDONE Inactive TOPIRAMATE 50 MG TABS 1 QD TOPIRAMATE 50 MG TABS 1 29489 TOPIRAMATE Inactive HYDROCORTISONE 2.5 % EXT CREA Apply three times a day to aff ected area HYDROCORTISONE 2.5 % EXT CREA 578777 HYDROCORTIS ONE Inactive NAPROSYN 375 MG TAB 1 twice a day as needed for chest pain 04/01 NAPROSYN 375 MG TAB NAPROXEN Inactive TOPAMAX 100 MG TABS 1 tablet daily TOPAMAX 100 MG TABS 542829 TOPIRAMATE Inactive ZOVIRAX 400 MG TABS Take 1 tablet every 8 hours as needed 2 ZOVIRAX 400 MG TABS 110546 ACYCLOVIR Inactive LATUDA 80 MG TABS 1 tablet daily LATUDA 80 MG TA BS LURASIDONE HCL Inactive OMEPRAZOLE 20 MG CPDR 1 tablet by mouth daily OMEPRAZOLE 20 MG CPDR 188905 OMEPRAZOLE Inactive BIOTIN 1000 MCG TABS Take 2 tablets daily BIOTIN 1000 MCG TABS 975763 BIOTIN Inactive [facility] M[facility] 3 MG TABS Take 1 tablet at bedtime. 2013 [facility] M[facility] 3 MG TABS 953882 MELATONIN Inactive ZOFRAN ODT 4 MG TBDP 1 po q6hr PRN Nausea ZOFRAN ODT 4 MG TBDP 280722 ONDANSETRON Inactive ORTHO TRI-CYCLEN (28) 0.18/0.215/0.25 MG-35 MCG TABS 1 daily ORTHO TRI-CYCLEN (28) 0.18/0.215/0.25 MG-35 MCG TABS 486227 NORGESTIM-ETH ESTRAD TRIPHASIC Inactive CLARITIN 10 MG TAB 1 tablet by mouth daily as needed for itchy r khari CLARITIN 10 MG TAB 493862 LORATADINE Inactive ORTHO TRI-CYCLEN (28) 0.18/0.215/0.25 MG-35 MCG TABS 1 daily ORTHO TRI-CYCLEN (28) 0.18/0.215/0.25 MG-35 MCG TABS 334814 NORGESTIM-ETH ESTRAD TRIPHASIC Inactive HYDROXYZINE HCL 25 MG TABS Take 1-2 tablets daily 2015 HYDROXYZINE HCL 25 MG TABS 034115 HYDROXYZINE HCL Inactive LORATADINE 10 MG TABS 1 tablet by mouth daily LORATADINE 10 MG TABS 857391 LORATADINE Inactive AMOXICILLIN 500 MG CAPS 2 po BID x 10 days AMOXICILLIN 500 MG CAPS 232891 AMOXICILLIN Inactive ZITHROMAX Z-CHACE 250 MG TABS 2 today, then 1 daily for 4 days 201 10/06/11 ZITHROMAX Z-CHACE 250 MG TABS 0428762 AZITHROMYCIN Inac tive AUGMENTIN 875-125 MG TAB 1 po BID x 10 days with food AUGMENTIN 875-125 MG TAB 370622 AMOXICILLIN-POT CLAVULANATE Inactiv e Advance Directives Directive [...] 18 yo)) Fluzone preservative free (>3 yrs.) [[id number]] Influenza, seasonal, injectable, preservative free MPSV4 (meningococcal polysaccharide vaccination) Menactra meningococcal polysaccharide vaccine (MPSV4) hepatitis A immunization #1 Havrix-Pedi hepa titis A vaccine, unspecified formulation Adacel (Tetanus, reduced Diphtheria, and acellular Per tussis Immunization) Adacel [[id number]] tetanus toxoid, reduced diph theria toxoid, and [...] 11 .0-15.0 platelet count 210 THOUSAND/UL 10*3/mm3 [phone]/11/02 mean platelet volume 10.3 fL 7.5-11.5 Lab [...] ative Encounters Code Encounter Date Provider Facility CPT-57544 Level 2 Est. Patient 12:43:40 CDT Ned Navarrete MD [facility] CPT-76483 Level 3 Est. Patient 14:38:48 CDT Toni duque DO [facility] CPT-74973 Level 3 Est. Patient 09:02:58 TASSEL SNIPPER George paulson MD [facility] CPT-68070 Level 3 Est. Patient 17:42:32 CDT Ned Navarrete MD [facility] CPT-26842 Level 3 Est. Patient 11:04:31 TASSEL SNIPPER Mariana Torrez APRN [facility] CPT-58170 Level 4 Est. Patient 12:27:05 TASSEL SNIPPER Ned Navarrete MD [facility] CPT-17753 Level 3 Est. Patient 11:31:58 TASSEL SNIPPER Ned Navarrete MD [facility] CPT-96730 Level 3 Est. Patient 16:49:32 CDT Ned Navarrete MD [facility] CPT-04587 Level 4 Est. Patient 14:11:59 TASSEL SNIPPER Saskia green MD PhD [facility] CPT-59064 Level 3 Est. Patient 17:34:25 CDT Ned Navarrete MD [facility] CPT-06923 Level 3 Est. Patient 17:34:19 CDT Ned Navarrete MD [facility] CPT-87970 Level 3 Est. Patient 13:46:05 CDT Ned Navarrete MD [facility] CPT-12152 Level 3 Est. Patient 16:55:47 TASSEL SNIPPER Ned Navarrete MD [facility] CPT-31574 Level 2 Est. Patient 17:33:08 TASSEL SNIPPER Ned Navarrete MD [facility] CPT-38290 Level 3 Est. Patient 16:25:26 TASSEL SNIPPER Ned Navarrete MD [facility] Procedures Code Procedure Name Date Entry Date Standard Desc ription CPT-03117 Visit 16:49:41 TASSEL SNIPPER CPT-92439 Sono OB limited - XRAY USE ONLY 16:38:01 CS T CPT-51142 Sono OB comp > 14 weeks - XRAY USE ONLY 17:00:59 TASSEL SNIPPER CPT-90654 UA w micro - LAB USE ONLY 16:59:38 CDT 2015 CPT-59239 TSH - LAB USE ONLY 16:59:38 CDT CPT-72988 Venipuncture Draw Fee 16:59:38 CDT CPT-77268 Spec Collection and Handling Fee 14:01:24 C DT CPT-31540 Visit 14:01:24 CDT CPT-033 [facility] Med Screen 14:03:18 CDT CPT-033 [facility] Med Screen 11:04:57 CDT CPT-033 [facility] Med Screen 10:29:44 CDT CPT-87349 Administration 2+ single or combination vaccines inc oral 14:02:47 TASSEL SNIPPER CPT-56125 Administration single or combination vac cine inc oral 14:02:47 TASSEL SNIPPER CPT-73476 Hepatitis A ped/adol 2 dose schedule 14:02:47 TASSEL SNIPPER CPT-36957 Gardasil 14:02:47 TASSEL SNIPPER CPT-31390 Administration single or combination vac cine inc oral 11:40:38 TASSEL SNIPPER CPT-69846 Gardasil 11:40:38 TASSEL SNIPPER CPT-78503 Administration single or combination vac cine inc oral 09:45:00 CDT CPT-52000 Influenza Preservative Free split virus >age 3 09:45:00 CDT CPT-01824 Venipuncture Draw Fee 07:59:02 CDT
--- OUTSIDE RECORDS SUMMARY | 2019-10-10 20:52 | XMS REPORT | Clinical Summary ---
Author Author Admin, Son Rodriguez [facility] Address Unknown Phone Unavailable [...] LATUDA 20 MG ORAL TABS LURASIDONE HCL 2405220 0230 Active Breanne Madl HAND RIGGER Active CEPHALEXIN 500 MG ORAL CAPS CEPHALEXIN 622849 59827 Active Breanne Madl HAND RIGGER Active LORATADINE 10 MG TABS 1 tablet by mouth daily L ORATADINE 62283555495 No Longer Active Breanne Madl HAND RIGGER Active HYDROXYZINE HCL 25 MG TABS Take 1-2 tablets daily 2015 HYDROXYZINE HCL 05608081987 No Longer Active Breanne Madl HAND RIGGER Active ORTHO TRI-CYCLEN (28) 0.18/0.215/0.25 MG-35 MCG TABS 1 daily NORGESTIM-ETH ESTRAD TRIPHASIC 46096961446 No Longer Active Breanne Madl HAND RIGGER Active CLARITIN 10 MG TAB 1 tablet by mouth daily as needed for itchy r khari LORATADINE 55501023306 No Longer Active Ned Navarrete MD Active AUGMENTIN 875-125 MG TAB 1 po BID x 10 days with food AMOXICILLIN-POT CLAVULANATE 17228222552 No Longer Active Toni Washington DO Active ORTHO TRI-CYCLEN (28) 0.18/0.215/0.25 MG-35 MCG TABS 1 daily NORGESTIM-ETH ESTRAD TRIPHASIC 71562357746 No Longer Active Ned Navarrete MD Active ZOFRAN ODT 4 MG TBDP 1 po q6hr PRN Nausea ONDAN SETRON 62771079460 No Longer Active Ned Navarrete MD Active [facility] MEL[facility] 3 MG TABS Take 1 tablet at bedtime. 2013 MELATONIN 47482058797 No Longer Active Ned Navarrete MD Activ e BIOTIN 1000 MCG TABS Take 2 tablets daily BIOTI N 97314451542 No Longer Active Ned Navarrete MD Active OMEPRAZOLE 20 MG CPDR 1 tablet by mouth daily O MEPRAZOLE 37013900151 No Longer Active Mariana Josué COMPUTATIONAL SCIENTIST Active LATUDA 80 MG TABS 1 tablet daily LURASIDONE HCL 81250624327 No Longer Active Mariana Moses APRN Active ZOVIRAX 400 MG TABS Take 1 tablet every 8 hours as needed 2 ACYCLOVIR 67809408865 No Longer Active Ned Navarrete MD Activ e ZITHROMAX Z-CHACE 250 MG TABS 2 today, then 1 daily for 4 days 201 10/06/11 AZITHROMYCIN 93407640981 No Longer Active Ned Navarrete MD Active TOPAMAX 100 MG TABS 1 tablet daily TOPIRAMATE 54 884331553 No Longer Active Ned Navarrete MD Active AMOXICILLIN 500 MG CAPS 2 po BID x 10 days AMOX ICILLIN 76506811563 No Longer Active Saskia Simon MD PhD Active NAPROSYN 375 MG TAB 1 twice a day as needed for chest pain 04/01 NAPROXEN 93643964436 No Longer Active Saskia Simon MD PhD Active HYDROCORTISONE 2.5 % EXT CREA Apply three times a day to aff ected area HYDROCORTISONE 70558001397 No Longer Active Ned Navarrete MD Active TOPIRAMATE 50 MG TABS 1 QD TOPIRAMATE 85558262758 No Longer Active Ned Navarrete MD Active FANAPT 6 MG TABS 1 BID ILOPERIDONE 18910634846 No L onger Active Ned Navarrete MD Active CIPROFLOXACIN HCL 0.3 % SOLN 1 drop in right eye every 2 hours for 2 days, then 1 drop four times a day CIPROFLOXACIN HCL 87385806325 No Longer Active Ned Navarrete MD Active LORATADINE 10 MG TABS 1 tablet by mouth daily L ORATADINE 42465861030 No Longer Active Ned Navarrete MD Active RANITIDINE HCL 150 MG CAPS 1 twice a day RANITI DINE HCL 95788162255 No Longer Active Ned Navarrete MD Active RANITIDINE HCL 150 MG CAPS 1 twice a day RANITIDINE HCL 150 MG CAPS 775716 RANITIDINE HCL Inactive LORATADINE 10 MG TABS 1 tablet by mouth daily LORATADINE 10 MG TABS 463077 LORATADINE Inactive CIPROFLOXACIN HCL 0.3 % SOLN 1 drop in right eye every 2 hours for 2 days, then 1 drop four times a day CIPROFLOXACIN HCL 0.3 % SOLN 140863 CIPROFLOXACIN HCL Inactive FANAPT 6 MG TABS 1 BID FANAPT 6 MG TABS ILO PERIDONE Inactive TOPIRAMATE 50 MG TABS 1 QD TOPIRAMATE 50 MG TABS 1 39433 TOPIRAMATE Inactive HYDROCORTISONE 2.5 % EXT CREA Apply three times a day to aff ected area HYDROCORTISONE 2.5 % EXT CREA 510253 HYDROCORTIS ONE Inactive NAPROSYN 375 MG TAB 1 twice a day as needed for chest pain 04/01 NAPROSYN 375 MG TAB NAPROXEN Inactive TOPAMAX 100 MG TABS 1 tablet daily TOPAMAX 100 MG TABS 407877 TOPIRAMATE Inactive ZOVIRAX 400 MG TABS Take 1 tablet every 8 hours as needed 2 ZOVIRAX 400 MG TABS 501197 ACYCLOVIR Inactive LATUDA 80 MG TABS 1 tablet daily LATUDA 80 MG TA BS LURASIDONE HCL Inactive OMEPRAZOLE 20 MG CPDR 1 tablet by mouth daily OMEPRAZOLE 20 MG CPDR 353539 OMEPRAZOLE Inactive BIOTIN 1000 MCG TABS Take 2 tablets daily BIOTIN 1000 MCG TABS 535447 BIOTIN Inactive [facility] 3 MG TABS Take 1 tablet at bedtime. 2013 [facility] M[facility] 3 MG TABS 733523 MELATONIN Inactive ZOFRAN ODT 4 MG TBDP 1 po q6hr PRN Nausea ZOFRAN ODT 4 MG TBDP 978726 ONDANSETRON Inactive ORTHO TRI-CYCLEN (28) 0.18/0.215/0.25 MG-35 MCG TABS 1 daily ORTHO TRI-CYCLEN (28) 0.18/0.215/0.25 MG-35 MCG TABS 080711 NORGESTIM-ETH ESTRAD TRIPHASIC Inactive CLARITIN 10 MG TAB 1 tablet by mouth daily as needed for itchy r khari CLARITIN 10 MG TAB 683654 LORATADINE Inactive ORTHO TRI-CYCLEN (28) 0.18/0.215/0.25 MG-35 MCG TABS 1 daily ORTHO TRI-CYCLEN (28) 0.18/0.215/0.25 MG-35 MCG TABS 373337 NORGESTIM-ETH ESTRAD TRIPHASIC Inactive HYDROXYZINE HCL 25 MG TABS Take 1-2 tablets daily 2015 HYDROXYZINE HCL 25 MG TABS 758789 HYDROXYZINE HCL Inactive LORATADINE 10 MG TABS 1 tablet by mouth daily LORATADINE 10 MG TABS 645382 LORATADINE Inactive AMOXICILLIN 500 MG CAPS 2 po BID x 10 days AMOXICILLIN 500 MG CAPS 018634 AMOXICILLIN Inactive ZITHROMAX Z-CHACE 250 MG TABS 2 today, then 1 daily for 4 days 201 10/06/11 ZITHROMAX Z-CHACE 250 MG TABS 3446209 AZITHROMYCIN Inac tive AUGMENTIN 875-125 MG TAB 1 po BID x 10 days with food AUGMENTIN 875-125 MG TAB 165526 AMOXICILLIN-POT CLAVULANATE Inactiv e Advance Directives Directive [...] 18 yo)) Fluzone preservative free (>3 yrs.) [[id number]] Influenza, seasonal, injectable, preservative free MPSV4 (meningococcal polysaccharide vaccination) Menactra meningococcal polysaccharide vaccine (MPSV4) hepatitis A immunization #1 Havrix-Pedi hepa titis A vaccine, unspecified formulation Adacel (Tetanus, reduced Diphtheria, and acellular Per tussis Immunization) Adacel [[id number]] tetanus toxoid, reduced diph theria toxoid, and [...] 11 .0-15.0 platelet count 210 THOUSAND/UL 10*3/mm3 784-358 5755/11/02 mean platelet volume 10.3 fL 7.5-11.5 Lab [...] ative Encounters Code Encounter Date Provider Facility CPT-82243 Level 2 Est. Patient 12:43:40 CDT Ned Navarrete MD [facility] CPT-20147 Level 3 Est. Patient 14:38:48 CDT Toni duque DO [facility] CPT-87023 Level 3 Est. Patient 09:02:58 TOOL CRIB SUPERVISOR George paulson MD [facility] CPT-84545 Level 3 Est. Patient 17:42:32 CDT Ned Navarrete MD [facility] CPT-52410 Level 3 Est. Patient 11:04:31 TOOL CRIB SUPERVISOR Mariana Torrez APRN [facility] CPT-87301 Level 4 Est. Patient 12:27:05 TOOL CRIB SUPERVISOR Ned Navarrete MD [facility] CPT-27567 Level 3 Est. Patient 11:31:58 TOOL CRIB SUPERVISOR Ned Navarrete MD [facility] CPT-33028 Level 3 Est. Patient 16:49:32 CDT Ned Navarrete MD [facility] CPT-25387 Level 4 Est. Patient 14:11:59 TOOL CRIB SUPERVISOR Saskia green MD PhD [facility] CPT-50565 Level 3 Est. Patient 17:34:25 CDT Ned Navarrete MD [facility] CPT-73899 Level 3 Est. Patient 17:34:19 CDT Ned Navarrete MD [facility] CPT-22800 Level 3 Est. Patient 13:46:05 CDT Ned Navarrete MD [facility] CPT-59354 Level 3 Est. Patient 16:55:47 TOOL CRIB SUPERVISOR Ned Navarrete MD [facility] CPT-59388 Level 2 Est. Patient 17:33:08 TOOL CRIB SUPERVISOR Ned Navarrete MD [facility] CPT-63438 Level 3 Est. Patient 16:25:26 TOOL CRIB SUPERVISOR Ned Navarrete MD [facility] Procedures Code Procedure Name Date Entry Date Standard Desc ription CPT-23629 Visit 16:49:41 TOOL CRIB SUPERVISOR CPT-57264 Sono OB limited - XRAY USE ONLY 16:38:01 CS T CPT-41575 Sono OB comp > 14 weeks - XRAY USE ONLY 17:00:59 TOOL CRIB SUPERVISOR CPT-93800 UA w micro - LAB USE ONLY 16:59:38 CDT 2015 CPT-95826 TSH - LAB USE ONLY 16:59:38 CDT CPT-87526 Venipuncture Draw Fee 16:59:38 CDT CPT-23173 Spec Collection and Handling Fee 14:01:24 C DT CPT-72324 Visit 14:01:24 CDT CPT-033 [facility] Med Screen 14:03:18 CDT CPT-033 [facility] Med Screen 11:04:57 CDT CPT-033 [facility] Med Screen 10:29:44 CDT CPT-03479 Administration 2+ single or combination vaccines inc oral 14:02:47 TOOL CRIB SUPERVISOR CPT-21833 Administration single or combination vac cine inc oral 14:02:47 TOOL CRIB SUPERVISOR CPT-44130 Hepatitis A ped/adol 2 dose schedule 14:02:47 TOOL CRIB SUPERVISOR CPT-97885 Gardasil 14:02:47 TOOL CRIB SUPERVISOR CPT-66795 Administration single or combination vac cine inc oral 11:40:38 TOOL CRIB SUPERVISOR CPT-07725 Gardasil 11:40:38 TOOL CRIB SUPERVISOR CPT-38187 Administration single or combination vac cine inc oral 09:45:00 CDT CPT-08979 Influenza Preservative Free split virus >age 3 09:45:00 CDT CPT-21294 Venipuncture Draw Fee 07:59:02 CDT
--- OUTSIDE RECORDS SUMMARY | 2019-10-10 20:52 | XMS REPORT | Clinical Summary ---
Author Author Admin, Son Rodriguez [facility] Address Unknown Phone Unavailable Allergies, Adverse [...] complication Methamphetamine abuse 305.70 Inactive [facility] [place] [facility] Amphetamine or related [...] 1 herman ly for 3 days PREDNISONE 39919718518 No Longer Active Ned pérez MD Active CEPHALEXIN 500 MG ORAL CAPS CEPHALEXIN 33377435911 No Longer Active Ned Navarrete MD Active LATUDA 20 MG ORAL TABS LURASIDONE HCL 4072118 0230 Active Breanne Madl TSO Active LORATADINE 10 MG TABS 1 tablet by mouth daily L ORATADINE 85591277220 No Longer Active Breanne Madl TSO Active HYDROXYZINE HCL 25 MG TABS Take 1-2 tablets daily 2015 HYDROXYZINE HCL 49301911765 No Longer Active Breanne Madl TSO Active ORTHO TRI-CYCLEN (28) 0.18/0.215/0.25 MG-35 MCG TABS 1 daily NORGESTIM-ETH ESTRAD TRIPHASIC 61183685068 No Longer Active Breanne Madl TSO Active CLARITIN 10 MG TAB 1 tablet by mouth daily as needed for itchy r khari LORATADINE 39689697171 No Longer Active Ned Navarrete MD Active AUGMENTIN 875-125 MG TAB 1 po BID x 10 days with food AMOXICILLIN-POT CLAVULANATE 25733952362 No Longer Active Toni Washington DO Active ORTHO TRI-CYCLEN (28) 0.18/0.215/0.25 MG-35 MCG TABS 1 daily NORGESTIM-ETH ESTRAD TRIPHASIC 08825568557 No Longer Active Ned Navarrete MD Active ZOFRAN ODT 4 MG TBDP 1 po q6hr PRN Nausea ONDAN SETRON 21751626323 No Longer Active Ned Navarrete MD Active [facility] MELAT[facility] 3 MG TABS Take 1 tablet at bedtime. 2013 MELATONIN 91282239792 No Longer Active Ned Navrarete MD Activ e BIOTIN 1000 MCG TABS Take 2 tablets daily BIOTI N 39620052922 No Longer Active Ned Navarrete MD Active OMEPRAZOLE 20 MG CPDR 1 tablet by mouth daily O MEPRAZOLE 39413975753 No Longer Active Mariana Moses APRN Active LATUDA 80 MG TABS 1 tablet daily LURASIDONE HCL 00242114813 No Longer Active Mariana Moses APRN Active ZOVIRAX 400 MG TABS Take 1 tablet every 8 hours as needed 2 ACYCLOVIR 01017810319 No Longer Active Ned Navarrete MD Activ e ZITHROMAX Z-CHACE 250 MG TABS 2 today, then 1 daily for 4 days 201 10/06/11 AZITHROMYCIN 42816790729 No Longer Active Ned Navarrete MD Active TOPAMAX 100 MG TABS 1 tablet daily TOPIRAMATE 54 180868585 No Longer Active Ned Navarrete MD Active AMOXICILLIN 500 MG CAPS 2 po BID x 10 days AMOX ICILLIN 40208437101 No Longer Active Saskia Simon MD PhD Active NAPROSYN 375 MG TAB 1 twice a day as needed for chest pain 04/01 NAPROXEN 48608567021 No Longer Active Saskia Simon MD PhD Active HYDROCORTISONE 2.5 % EXT CREA Apply three times a day to aff ected area HYDROCORTISONE 62543056024 No Longer Active Ned Navarrete MD Active TOPIRAMATE 50 MG TABS 1 QD TOPIRAMATE 68512110564 No Longer Active Ned Navarrete MD Active FANAPT 6 MG TABS 1 BID ILOPERIDONE 66779498817 No L onger Active Ned Navarrete MD Active CIPROFLOXACIN HCL 0.3 % SOLN 1 drop in right eye every 2 hours for 2 days, then 1 drop four times a day CIPROFLOXACIN HCL 84604409438 No Longer Active Ned Navarrete MD Active LORATADINE 10 MG TABS 1 tablet by mouth daily L ORATADINE 03005713781 No Longer Active Ned Navarrete MD Active RANITIDINE HCL 150 MG CAPS 1 twice a day RANITI DINE HCL 57900269639 No Longer Active Ned Navarrete MD Active RANITIDINE HCL 150 MG CAPS 1 twice a day RANITIDINE HCL 150 MG CAPS 363632 RANITIDINE HCL Inactive LORATADINE 10 MG TABS 1 tablet by mouth daily LORATADINE 10 MG TABS 400491 LORATADINE Inactive CIPROFLOXACIN HCL 0.3 % SOLN 1 drop in right eye every 2 hours for 2 days, then 1 drop four times a day CIPROFLOXACIN HCL 0.3 % SOLN 887703 CIPROFLOXACIN HCL Inactive FANAPT 6 MG TABS 1 BID FANAPT 6 MG TABS ILO PERIDONE Inactive TOPIRAMATE 50 MG TABS 1 QD TOPIRAMATE 50 MG TABS 1 94894 TOPIRAMATE Inactive HYDROCORTISONE 2.5 % EXT CREA Apply three times a day to aff ected area HYDROCORTISONE 2.5 % EXT CREA 981567 HYDROCORTIS ONE Inactive NAPROSYN 375 MG TAB 1 twice a day as needed for chest pain 04/01 NAPROSYN 375 MG TAB NAPROXEN Inactive TOPAMAX 100 MG TABS 1 tablet daily TOPAMAX 100 MG TABS 309177 TOPIRAMATE Inactive ZOVIRAX 400 MG TABS Take 1 tablet every 8 hours as needed 2 ZOVIRAX 400 MG TABS 021940 ACYCLOVIR Inactive LATUDA 80 MG TABS 1 tablet daily LATUDA 80 MG TA BS LURASIDONE HCL Inactive OMEPRAZOLE 20 MG CPDR 1 tablet by mouth daily OMEPRAZOLE 20 MG CPDR 562060 OMEPRAZOLE Inactive BIOTIN 1000 MCG TABS Take 2 tablets daily BIOTIN 1000 MCG TABS 816550 BIOTIN Inactive [facility] MEL[facility] 3 MG TABS Take 1 tablet at bedtime. 2013 [facility] MELATONIN 3 MG TABS 064368 MELATONIN Inactive ZOFRAN ODT 4 MG TBDP 1 po q6hr PRN Nausea ZOFRAN ODT 4 MG TBDP 448906 ONDANSETRON Inactive ORTHO TRI-CYCLEN (28) 0.18/0.215/0.25 MG-35 MCG TABS 1 daily ORTHO TRI-CYCLEN (28) 0.18/0.215/0.25 MG-35 MCG TABS 200006 NORGESTIM-ETH ESTRAD TRIPHASIC Inactive CLARITIN 10 MG TAB 1 tablet by mouth daily as needed for itchy r khari CLARITIN 10 MG TAB 531469 LORATADINE Inactive ORTHO TRI-CYCLEN (28) 0.18/0.215/0.25 MG-35 MCG TABS 1 daily ORTHO TRI-CYCLEN (28) 0.18/0.215/0.25 MG-35 MCG TABS 752636 NORGESTIM-ETH ESTRAD TRIPHASIC Inactive HYDROXYZINE HCL 25 MG TABS Take 1-2 tablets daily 2015 HYDROXYZINE HCL 25 MG TABS 388225 HYDROXYZINE HCL Inactive LORATADINE 10 MG TABS 1 tablet by mouth daily LORATADINE 10 MG TABS 666222 LORATADINE Inactive CEPHALEXIN 500 MG ORAL CAPS CEPHALEX IN 500 MG ORAL CAPS 960759 CEPHALEXIN Inactive PREDNISONE 20 MG TABS Take 2 daily for 3 days and then 1 herman ly for 3 days PREDNISONE 20 MG TABS 129992 PREDNISONE Inacti ve AMOXICILLIN 500 MG CAPS 2 po BID x 10 days AMOXICILLIN 500 MG CAPS 678243 AMOXICILLIN Inactive ZITHROMAX Z-CHACE 250 MG TABS 2 today, then 1 daily for 4 days 201 10/06/11 ZITHROMAX Z-CHACE 250 MG TABS 8446560 AZITHROMYCIN Inac tive AUGMENTIN 875-125 MG TAB 1 po BID x 10 days with food AUGMENTIN 875-125 MG TAB 591625 AMOXICILLIN-POT CLAVULANATE Inactiv e Advance Directives Directive [...] 18 yo)) Fluzone preservative free (>3 yrs.) [[id number]] Influenza, seasonal, injectable, preservative free MPSV4 (meningococcal polysaccharide vaccination) Menactra meningococcal polysaccharide vaccine (MPSV4) hepatitis A immunization #1 Havrix-Pedi hepa titis A vaccine, unspecified formulation Adacel (Tetanus, reduced Diphtheria, and acellular Per tussis Immunization) Adacel [[id number]] tetanus toxoid, reduced diph theria toxoid, and [...] 11 .0-15.0 platelet count 210 THOUSAND/UL 10*3/mm3 941-546 7457/11/02 mean platelet volume 10.3 fL 7.5-11.5 Lab [...] N Encounters Code Encounter Date Provider Facility CPT-89798 Level 3 Est. Patient 15:21:38 LAV CREWMAN Rayna Pepper APRN [facility] CPT-39543 Level 3 Est. Patient 15:35:51 LAV CREWMAN Ned Navarrete MD [facility] CPT-52040 Level 2 Est. Patient 12:43:40 CDT Ned Navarrete MD [facility] CPT-37642 Level 3 Est. Patient 14:38:48 CDT Toni duque DO [facility] CPT-01068 Level 3 Est. Patient 09:02:58 LAV CREWMAN George paulson MD [facility] CPT-19209 Level 3 Est. Patient 17:42:32 CDT Ned Navarrete MD [facility] CPT-98034 Level 3 Est. Patient 11:04:31 LAV CREWMAN Mariana Torrez APRN [facility] CPT-43561 Level 4 Est. Patient 12:27:05 LAV CREWMAN Ned Navarrete MD [facility] CPT-94415 Level 3 Est. Patient 11:31:58 LAV CREWMAN Ned Navarrete MD [facility] CPT-63263 Level 3 Est. Patient 16:49:32 CDT Ned Navarrete MD [facility] CPT-23260 Level 4 Est. Patient 14:11:59 LAV CREWMAN Saskia green MD PhD [facility] CPT-84175 Level 3 Est. Patient 17:34:25 CDT Ned Navarrete MD [facility] CPT-32089 Level 3 Est. Patient 17:34:19 CDT Ned Navarrete MD [facility] CPT-98269 Level 3 Est. Patient 13:46:05 CDT Ned Navarrete MD [facility] CPT-87130 Level 3 Est. Patient 16:55:47 LAV CREWMAN Ned Navarrete MD [facility] CPT-29984 Level 2 Est. Patient 17:33:08 LAV CREWMAN Ned Navarrete MD [facility] CPT-39453 Level 3 Est. Patient 16:25:26 LAV CREWMAN Ned Navarrete MD [facility] Procedures Code Procedure Name Date Entry Date Standard Desc ription CPT-54939 Visit 15:17:20 CDT CPT-89402 Visit 15:57:29 CDT CPT-87404 First Vx - Ix admin via ID I M or jet injects without counseling by physician 15:53:15 CDT CPT-11526 Boostrix Intramuscular Suspension 5-2.5-18.5 201 01/28/11 15:53:14 CDT CPT-29956 Tdap 7yrs or > 14:41:06 CDT CPT-87306 Visit 17:47:08 CDT CPT-15498 OBGTT 1 - LAB USE ONLY 10:15:57 CDT CPT-89045 Venipuncture Draw Fee 10:15:57 CDT CPT-61607 Visit 15:07:16 LAV CREWMAN CPT-93208 Visit 16:49:41 LAV CREWMAN CPT-44177 Sono OB limited - XRAY USE ONLY 16:38:01 CS T CPT-10713 Sono OB comp > 14 weeks - XRAY USE ONLY 17:00:59 LAV CREWMAN CPT-10360 UA w micro - LAB USE ONLY 16:59:38 CDT 2015 CPT-97662 TSH - LAB USE ONLY 16:59:38 CDT CPT-67813 Venipuncture Draw Fee 16:59:38 CDT CPT-68797 Spec Collection and Handling Fee 14:01:24 C DT CPT-67841 Visit 14:01:24 CDT CPT-033 [facility] Med Screen 14:03:18 CDT CPT-033 [facility] Med Screen 11:04:57 CDT CPT-033 [facility] Med Screen 10:29:44 CDT CPT-63736 Administration 2+ single or combination vaccines inc oral 14:02:47 LAV CREWMAN CPT-56022 Administration single or combination vac cine inc oral 14:02:47 LAV CREWMAN CPT-94661 Hepatitis A ped/adol 2 dose schedule 14:02:47 LAV CREWMAN CPT-44396 Gardasil 14:02:47 LAV CREWMAN CPT-07454 Administration single or combination vac cine inc oral 11:40:38 LAV CREWMAN CPT-82709 Gardasil 11:40:38 LAV CREWMAN CPT-79852 Administration single or combination vac cine inc oral 09:45:00 CDT CPT-71716 Influenza Preservative Free split virus >age 3 09:45:00 CDT CPT-10237 Venipuncture Draw Fee 07:59:02 CDT
--- OUTSIDE RECORDS SUMMARY | 2019-10-10 20:53 | XMS REPORT | Clinical Summary ---
Author Author Admin, Son Chan Organization [facility] Address Unknown Phone Allergies, Adverse Reactions, Alerts Allergy Name Reaction Description Start Date Severity Status Pr ovider PATRICIAFY shaking Critical Active Saskia Dumont PhD Conditions [...] Generic Name NDC Status Provider Patient Instruction ZOFRAN ODT 4 MG TBDP 1 po q6hr PRN Nausea ONDADOREEN RODRIGUEZN 99508244441 Active Mariana Moses APRN Active OMEPRAZOLE 20 MG CPDR 1 tablet by mouth daily O MEPRAZOLE 91572340198 No Longer Active Mariana Moses APRN Active LATUDA 80 MG TABS 1 tablet daily LURASIDONE HCL 52857175264 No Longer Active Mariana Moses APRN Active ZOVIRAX 400 MG TABS Take 1 tablet every 8 hours as needed 2 ACYCLOVIR 79621154099 No Longer Active Ned Navarrete MD Activ e ZITHROMAX Z-CHACE 250 MG TABS 2 today, then 1 daily for 4 days 201 10/06/11 AZITHROMYCIN 66820923586 No Longer Active Ned Navarrete MD Active HYDROXYZINE HCL 25 MG TABS Take 1-2 tablets daily HYDROXYZINE HCL 85206393777 Active Ned Navarrete MD Active [facility] MELATONIN 3 MG TABS Take 1 tablet at bedtime. MELATONIN 32985467641 Active Ned Navarrete MD Active BIOTIN 1000 MCG TABS Take 2 tablets daily BIOTIN 95075146006 Active Ned Navarrete MD Active TOPAMAX 100 MG TABS 1 tablet daily TOPIRAMATE 54 583478235 No Longer Active Ned Navarrete MD Active AMOXICILLIN 500 MG CAPS 2 po BID x 10 days AMOX ICILLIN 02136486922 No Longer Active Saskia Simon MD PhD Active NAPROSYN 375 MG TAB 1 twice a day as needed for chest pain 04/01 NAPROXEN 06308361381 No Longer Active Saskia Simon MD PhD Active HYDROCORTISONE 2.5 % EXT CREA Apply three times a day to aff ected area HYDROCORTISONE 68164493149 No Longer Active Ned Navarrete MD Active LORATADINE 10 MG TABS 1 tablet by mouth daily L ORATADINE 33619746830 Active Mariana Moses APRN Active ORTHO TRI-CYCLEN (28) 0.18/0.215/0.25 MG-35 MCG TABS 1 daily 2 NORGESTIM-ETH ESTRAD TRIPHASIC 24671553474 Active Mariana Moses APRN Active TOPIRAMATE 50 MG TABS 1 QD TOPIRAMATE 34748678017 No Longer Active Ned Navarrete MD Active FANAPT 6 MG TABS 1 BID ILOPERIDONE 32034181122 No L onger Active Ned Navarrete MD Active CIPROFLOXACIN HCL 0.3 % SOLN 1 drop in right eye every 2 hours for 2 days, then 1 drop four times a day CIPROFLOXACIN HCL 56644477172 No Longer Active Ned Navarrete MD Active LORATADINE 10 MG TABS 1 tablet by mouth daily L ORATADINE 61234527397 No Longer Active Ned Navarrete MD Active RANITIDINE HCL 150 MG CAPS 1 twice a day RANITI DINE HCL 26040243694 No Longer Active Ned Navarrete MD Active RANITIDINE HCL 150 MG CAPS 1 twice a day RANITIDINE HCL 150 MG CAPS 631326 RANITIDINE HCL Inactive LORATADINE 10 MG TABS 1 tablet by mouth daily LORATADINE 10 MG TABS 654235 LORATADINE Inactive CIPROFLOXACIN HCL 0.3 % SOLN 1 drop in right eye every 2 hours for 2 days, then 1 drop four times a day CIPROFLOXACIN HCL 0.3 % SOLN 451140 CIPROFLOXACIN HCL Inactive FANAPT 6 MG TABS 1 BID FANAPT 6 MG TABS ILO PERIDONE Inactive TOPIRAMATE 50 MG TABS 1 QD TOPIRAMATE 50 MG TABS 1 60738 TOPIRAMATE Inactive HYDROCORTISONE 2.5 % EXT CREA Apply three times a day to aff ected area HYDROCORTISONE 2.5 % EXT CREA 175500 HYDROCORTIS ONE Inactive NAPROSYN 375 MG TAB 1 twice a day as needed for chest pain 04/01 NAPROSYN 375 MG TAB 19790729 NAPROXEN Inactive TOPAMAX 100 MG TABS 1 tablet daily TOPAMAX 100 MG TABS 912043 TOPIRAMATE Inactive ZOVIRAX 400 MG TABS Take 1 tablet every 8 hours as needed 2 ZOVIRAX 400 MG TABS 241462 ACYCLOVIR Inactive LATUDA 80 MG TABS 1 tablet daily LATUDA 80 MG TA BS LURASIDONE HCL Inactive OMEPRAZOLE 20 MG CPDR 1 tablet by mouth daily OMEPRAZOLE 20 MG CPDR 443576 OMEPRAZOLE Inactive AMOXICILLIN 500 MG CAPS 2 po BID x 10 days AMOXICILLIN 500 MG CAPS 697787 AMOXICILLIN Inactive ZITHROMAX Z-CHACE 250 MG TABS 2 today, then 1 daily for 4 days 201 10/06/11 ZITHROMAX Z-CHACE 250 MG TABS 3326914 AZITHROMYCIN Inac tive Advance Directives Directive Description [...] 18 yo)) Fluzone preservative free (>3 yrs.) [[id number]] Influenza, seasonal, injectable, preservative free MPSV4 (meningococcal polysaccharide vaccination) Menactra meningococcal polysaccharide vaccine (MPSV4) hepatitis A immunization #1 Havrix-Pedi hepa titis A vaccine, unspecified formulation Adacel immunization Adacel [[id number]] tetanus toxo id, reduced diphtheria toxoid, and acellular pertussis vaccine, adsorbed influenza immunization (Flu Vax) has been administered 2 Historical influenza virus vaccine, unspecified formulation DPT immunization #5 Historical oral polio vaccine (OPV) #4 Historical case ovirus vaccine, unspecified formulation MMR virus immunization #2 Historical DPT immunization #4 Historical Hemophilus influenza B immunization #4 Historica l Haemophilus influenzae type b vaccine, conjugate unspecified formulation oral polio vaccine (OPV) #3 Historical case ovirus vaccine, unspecified formulation MMR virus immunization #1 Historical hepatitis B vaccine [...] vaccine, unspecified formulation hepatitis B vaccine #2 Historical hepatitis B vaccine, unspecified formulation DPT immunization #1 Historical Hemophilus influenza B immunization #1 Historica l Haemophilus influenzae type b vaccine, conjugate unspecified formulation oral polio vaccine (OPV) #1 Historical case ovirus vaccine, unspecified formulation hepatitis B vaccine #1 Historical hepatitis B vaccine, unspecified formulation Vital Signs Date Name Value Unit Range Description blood pressure, diastolic 76 mm[Hg] BP michele blood pressure, systolic 110 mm[Hg] BP sys height E&M 66.5 [in_us] Bdy height pulse rate E&M 103 /min Heart rate temperature E&M 99.1 [degF] Body temp erature weight E&M 160.50 [lb_av] Weight Measure d blood pressure, diastolic 75 mm[Hg] BP michele blood pressure, systolic 113 mm[Hg] BP sys height E&M 66.5 [in_us] Bdy height pulse rate E&M 65 /min Heart rate temperature E&M 98.9 [degF] Body temp erature weight E&M 162 [lb_av] Weight Measure d blood pressure, diastolic 65 mm[Hg] BP michele blood pressure, systolic 99 mm[Hg] BP sys height E&M 66.5 [in_us] Bdy height pulse rate E&M 64 /min Heart rate temperature E&M 98.1 [degF] Body temp erature weight E&M 149 [lb_av] Weight Measure d blood pressure, diastolic 66 mm[Hg] BP michele blood pressure, systolic 102 mm[Hg] BP sys height E&M 66.5 [in_us] Bdy height pulse rate E&M 62 /min Heart rate temperature E&M 99.0 [degF] Body temp erature weight E&M 148 [lb_av] Weight Measure d blood pressure, diastolic 69 mm[Hg] BP michele blood pressure, systolic 109 mm[Hg] BP sys height E&M 66.5 [in_us] Bdy height pulse rate E&M 65 /min Heart rate temperature E&M 98.3 [degF] Body temp erature weight E&M 147.60 [lb_av] Weight Measure d Diagnostic Results Date Name Value Unit Range Description Lab Report: CBC - Hematology leukocyte count, blood 7.8 10^3/MM^3 10*3/mm3 4.6-10.2 erythrocyte (RBC) count 4.28 10^6/MM^3 10*6/mm3 4.04-5.4 8 hemoglobin, blood 13.2 g/dL 12.0-16.0 hematocrit, blood 40.1 % 36.0-46.0 mean corpuscular volume, RBC 94 fL 80-97 mean corpuscular hemoglobin, RBC 30.8 pg 27. 0-31.2 mean corpuscular hemoglobin concentration, RBC 32.9 G/DL % 31.8-35.4 red blood cell distribution width 13.3 % 11 .6-14.8 platelet count 248 10^3/MM^3 10*3/mm3 142-424 Encounters Code Encounter Date Provider Facility CPT-01523 Level 3 Est. Patient 11:04:31 BOILER CLEANER Mariana Torrez APRN [facility] CPT-94806 Level 4 Est. Patient 12:27:05 BOILER CLEANER Ned Navarrete MD [facility] CPT-27610 Level 3 Est. Patient 11:31:58 BOILER CLEANER Ned Navarrete MD [facility] CPT-91348 Level 3 Est. Patient 16:49:32 CDT Ned Navarrete MD [facility] CPT-05068 Level 4 Est. Patient 14:11:59 BOILER CLEANER Saskia green MD PhD [facility] CPT-69465 Level 3 Est. Patient 17:34:25 CDT Ned Navarrete MD [facility] CPT-77807 Level 3 Est. Patient 17:34:19 CDT Ned Navarrete MD [facility] CPT-43031 Level 3 Est. Patient 13:46:05 CDT Ned Navarrete MD [facility] CPT-44486 Level 3 Est. Patient 16:55:47 BOILER CLEANER Ned Navarrete MD [facility] CPT-04761 Level 2 Est. Patient 17:33:08 BOILER CLEANER Ned Navarrete MD [facility] CPT-36482 Level 3 Est. Patient 16:25:26 BOILER CLEANER Ned Navarrete MD [facility] Procedures Code Procedure Name Date Entry Date Standard Desc ription CPT-033 [facility] Med Screen 10:29:44 CDT CPT-52026 Administration 2+ single or combination vaccines inc oral 14:02:47 BOILER CLEANER CPT-38667 Administration single or combination vac cine inc oral 14:02:47 BOILER CLEANER CPT-97740 Hepatitis A ped/adol 2 dose schedule 14:02:47 BOILER CLEANER CPT-29914 Gardasil 14:02:47 BOILER CLEANER CPT-71194 Administration single or combination vac cine inc oral 11:40:38 BOILER CLEANER CPT-62475 Gardasil 11:40:38 BOILER CLEANER CPT-05154 Administration single or combination vac cine inc oral 09:45:00 CDT CPT-98476 Influenza Preservative Free split virus >age 3 09:45:00 CDT CPT-62804 Venipuncture Draw Fee 07:59:02 CDT
--- OUTSIDE RECORDS SUMMARY | 2019-10-10 20:53 | XMS REPORT | Clinical Summary ---
Author Author Admin, Son Chan Organization [employer] Address Unknown Phone Unavailable Allergies, Adverse Reactions, [...] 1 herman ly for 3 days PREDNISONE [id number] No Longer Active Ned pérez MD Active CEPHALEXIN 500 MG ORAL CAPS CEPHALEXIN 18249455420 No Longer Active Ned Navarrete MD Active LATUDA 20 MG ORAL TABS LURASIDONE HCL 3320559 0230 Active Breanne Madl [employer] Active LORATADINE 10 MG TABS 1 tablet by mouth daily L ORATADINE 74613627015 No Longer Active Breanne Madl [employer] Active HYDROXYZINE HCL 25 MG TABS Take 1-2 tablets daily 2015 HYDROXYZINE HCL 94250942379 No Longer Active Breanne Madl [employer] Active ORTHO TRI-CYCLEN (28) 0.18/0.215/0.25 MG-35 MCG TABS 1 daily NORGESTIM-ETH ESTRAD TRIPHASIC 38557866704 No Longer Active Breanne Madl [employer]GE [employer]ER Active CLARITIN 10 MG TAB 1 tablet by mouth daily as needed for itchy r khari LORATADINE 71043461820 No Longer Active Ned Navarrete MD Active AUGMENTIN 875-125 MG TAB 1 po BID x 10 days with food AMOXICILLIN-POT CLAVULANATE 73591337394 No Longer Active Toni Washington DO Active ORTHO TRI-CYCLEN (28) 0.18/0.215/0.25 MG-35 MCG TABS 1 daily NORGESTIM-ETH ESTRAD TRIPHASIC 02588580797 No Longer Active Ned Navarrete MD Active ZOFRAN ODT 4 MG TBDP 1 po q6hr PRN Nausea ONDAN SETRON 61996593600 No Longer Active Ned Navarrete MD Active [facility] MEL[facility] 3 MG TABS Take 1 tablet at bedtime. 2013 MELATONIN 08220577682 No Longer Active Ned Navarrete MD Activ e BIOTIN 1000 MCG TABS Take 2 tablets daily BIOTI N 00924557129 No Longer Active Ned Navarrete MD Active OMEPRAZOLE 20 MG CPDR 1 tablet by mouth daily O MEPRAZOLE 34291173795 No Longer Active Mariana Moses APRN Active LATUDA 80 MG TABS 1 tablet daily LURASIDONE HCL 19638499045 No Longer Active Mariana Moses APRN Active ZOVIRAX 400 MG TABS Take 1 tablet every 8 hours as needed 2 ACYCLOVIR 06018804888 No Longer Active Ned Navarrete MD Activ e ZITHROMAX Z-CHACE 250 MG TABS 2 today, then 1 daily for 4 days 201 10/06/11 AZITHROMYCIN 71251624999 No Longer Active Ned Navarrete MD Active TOPAMAX 100 MG TABS 1 tablet daily TOPIRAMATE 54 162916141 No Longer Active Ned Navarrete MD Active AMOXICILLIN 500 MG CAPS 2 po BID x 10 days AMOX ICILLIN 33409209806 No Longer Active Saskia Simon MD PhD Active NAPROSYN 375 MG TAB 1 twice a day as needed for chest pain 04/01 NAPROXEN 17573099080 No Longer Active Saskia Simon MD PhD Active HYDROCORTISONE 2.5 % EXT CREA Apply three times a day to aff ected area HYDROCORTISONE 11999004443 No Longer Active Ned Navarrete MD Active TOPIRAMATE 50 MG TABS 1 QD TOPIRAMATE 18005311975 No Longer Active Ned Navarrete MD Active FANAPT 6 MG TABS 1 BID ILOPERIDONE 97674880807 No L onger Active Ned Navarrete MD Active CIPROFLOXACIN HCL 0.3 % SOLN 1 drop in right eye every 2 hours for 2 days, then 1 drop four times a day CIPROFLOXACIN HCL 26281769247 No Longer Active eNd Navarrete MD Active LORATADINE 10 MG TABS 1 tablet by mouth daily L ORATADINE 21691247102 No Longer Active Ned Navarrete MD Active RANITIDINE HCL 150 MG CAPS 1 twice a day RANITI DINE HCL 03637852318 No Longer Active Ned Navarrete MD Active RANITIDINE HCL 150 MG CAPS 1 twice a day RANITIDINE HCL 150 MG CAPS 249184 RANITIDINE HCL Inactive LORATADINE 10 MG TABS 1 tablet by mouth daily LORATADINE 10 MG TABS 474879 LORATADINE Inactive CIPROFLOXACIN HCL 0.3 % SOLN 1 drop in right eye every 2 hours for 2 days, then 1 drop four times a day CIPROFLOXACIN HCL 0.3 % SOLN 443790 CIPROFLOXACIN HCL Inactive FANAPT 6 MG TABS 1 BID FANAPT 6 MG TABS ILO PERIDONE Inactive TOPIRAMATE 50 MG TABS 1 QD TOPIRAMATE 50 MG TABS 1 74778 TOPIRAMATE Inactive HYDROCORTISONE 2.5 % EXT CREA Apply three times a day to aff ected area HYDROCORTISONE 2.5 % EXT CREA 218426 HYDROCORTIS ONE Inactive NAPROSYN 375 MG TAB 1 twice a day as needed for chest pain 04/01 NAPROSYN 375 MG TAB NAPROXEN Inactive TOPAMAX 100 MG TABS 1 tablet daily TOPAMAX 100 MG TABS 324225 TOPIRAMATE Inactive ZOVIRAX 400 MG TABS Take 1 tablet every 8 hours as needed 2 ZOVIRAX 400 MG TABS 182880 ACYCLOVIR Inactive LATUDA 80 MG TABS 1 tablet daily LATUDA 80 MG TA BS LURASIDONE HCL Inactive OMEPRAZOLE 20 MG CPDR 1 tablet by mouth daily OMEPRAZOLE 20 MG CPDR 897564 OMEPRAZOLE Inactive BIOTIN 1000 MCG TABS Take 2 tablets daily BIOTIN 1000 MCG TABS 959522 BIOTIN Inactive [facility] MEL[facility] 3 MG TABS Take 1 tablet at bedtime. 2013 [facility] MEL[facility]IN 3 MG TABS 821696 MELATONIN Inactive ZOFRAN ODT 4 MG TBDP 1 po q6hr PRN Nausea ZOFRAN ODT 4 MG TBDP 638927 ONDANSETRON Inactive ORTHO TRI-CYCLEN (28) 0.18/0.215/0.25 MG-35 MCG TABS 1 daily ORTHO TRI-CYCLEN (28) 0.18/0.215/0.25 MG-35 MCG TABS 087514 NORGESTIM-ETH ESTRAD TRIPHASIC Inactive CLARITIN 10 MG TAB 1 tablet by mouth daily as needed for itchy r khari CLARITIN 10 MG TAB 605392 LORATADINE Inactive ORTHO TRI-CYCLEN (28) 0.18/0.215/0.25 MG-35 MCG TABS 1 daily ORTHO TRI-CYCLEN (28) 0.18/0.215/0.25 MG-35 MCG TABS 039573 NORGESTIM-ETH ESTRAD TRIPHASIC Inactive HYDROXYZINE HCL 25 MG TABS Take 1-2 tablets daily 2015 HYDROXYZINE HCL 25 MG TABS 568043 HYDROXYZINE HCL Inactive LORATADINE 10 MG TABS 1 tablet by mouth daily LORATADINE 10 MG TABS 752302 LORATADINE Inactive CEPHALEXIN 500 MG ORAL CAPS CEPHALEX IN 500 MG ORAL CAPS 978569 CEPHALEXIN Inactive PREDNISONE 20 MG TABS Take 2 daily for 3 days and then 1 herman ly for 3 days PREDNISONE 20 MG TABS 161960 PREDNISONE Inacti ve AMOXICILLIN 500 MG CAPS 2 po BID x 10 days AMOXICILLIN 500 MG CAPS 853075 AMOXICILLIN Inactive ZITHROMAX Z-CHACE 250 MG TABS 2 today, then 1 daily for 4 days 201 10/06/11 ZITHROMAX Z-CHACE 250 MG TABS 8267388 AZITHROMYCIN Inac tive AUGMENTIN 875-125 MG TAB 1 po BID x 10 days with food AUGMENTIN 875-125 MG TAB 053206 AMOXICILLIN-POT CLAVULANATE Inactiv e Advance Directives Directive [...] 18 yo)) Fluzone preservative free (>3 yrs.) [[id number]] Influenza, seasonal, injectable, preservative free MPSV4 (meningococcal polysaccharide vaccination) Menactra meningococcal polysaccharide vaccine (MPSV4) hepatitis A immunization #1 Havrix-Pedi hepa titis A vaccine, unspecified formulation Adacel (Tetanus, reduced Diphtheria, and acellular Per tussis Immunization) Adacel [[id number]] tetanus toxoid, reduced diph theria toxoid, and [...] 11 .0-15.0 platelet count 210 THOUSAND/UL 10*3/mm3 652-015 7202/11/02 mean platelet volume 10.3 fL 7.5-11.5 Lab [...] N Encounters Code Encounter Date Provider Facility CPT-07813 Level 3 Est. Patient 15:21:38 [employer] Rayna Pepper APRN [facility] CPT-53482 Level 3 Est. Patient 15:35:51 [employer] Ned Navarrete MD [facility] CPT-40716 Level 2 Est. Patient 12:43:40 CDT Ned Navarrete MD [facility] CPT-24152 Level 3 Est. Patient 14:38:48 CDT Toni duque DO [facility] CPT-07965 Level 3 Est. Patient 09:02:58 [employer] George paulson MD [facility] CPT-00896 Level 3 Est. Patient 17:42:32 CDT Ned Navarrete MD [facility] CPT-81050 Level 3 Est. Patient 11:04:31 [employer] Mariana Torrez ALEXIS [facility] CPT-34592 Level 4 Est. Patient 12:27:05 [employer] Ned Navarrete MD [facility] CPT-07669 Level 3 Est. Patient 11:31:58 [employer] Ned Navarrete MD [facility] CPT-04752 Level 3 Est. Patient 16:49:32 CDT Ned Navarrete MD [facility] CPT-58680 Level 4 Est. Patient 14:11:59 [employer] Saskia green MD PhD [facility] CPT-97272 Level 3 Est. Patient 17:34:25 CDT Ned Navarrete MD [facility] CPT-41932 Level 3 Est. Patient 17:34:19 CDT Ned Navarrete MD [facility] CPT-81720 Level 3 Est. Patient 13:46:05 CDT Ned Navarrete MD [facility] CPT-99015 Level 3 Est. Patient 16:55:47 [employer] Ned Navarrete MD [facility] CPT-83137 Level 2 Est. Patient 17:33:08 [employer] Ned Navarrete MD [facility] CPT-01016 Level 3 Est. Patient 16:25:26 [employer] Ned Navarrete MD [facility] Procedures Code Procedure Name Date Entry Date Standard Desc ription CPT-62190 OBGTT 1 - LAB USE ONLY 10:15:57 CDT CPT-99533 Venipuncture Draw Fee 10:15:57 CDT CPT-16730 Visit 15:07:16 [employer] CPT-67357 Visit 16:49:41 [employer] CPT-82258 Son[facility] OB limited - XRAY USE ONLY 16:38:01 CS T CPT-33372 [facility] [facility] comp > 14 weeks - XRAY USE ONLY 17:00:59 [employer] CPT-87257 UA w micro - LAB USE ONLY 16:59:38 CDT 2015 CPT-99806 TSH - LAB USE ONLY 16:59:38 CDT CPT-44842 Venipuncture Draw Fee 16:59:38 CDT CPT-60725 Spec Collection and Handling Fee 14:01:24 C DT CPT-09664 Visit 14:01:24 CDT CPT-033 KB Med Screen 14:03:18 CDT CPT-033 KB Med Screen 11:04:57 CDT CPT-033 KB Med Screen 10:29:44 CDT CPT-13761 Administration 2+ single or combination vaccines inc oral 14:02:47 [employer] CPT-11334 Administration single or combination vac cine inc oral 14:02:47 [employer] CPT-34781 Hepatitis A ped/adol 2 dose schedule 14:02:47 [employer] CPT-09931 Gardasil 14:02:47 [employer] CPT-67742 Administration single or combination vac cine inc oral 11:40:38 [employer] CPT-67226 Gardasil 11:40:38 [employer] CPT-27089 Administration single or combination vac cine inc oral 09:45:00 CDT CPT-08946 Influenza Preservative Free split virus >age 3 09:45:00 CDT CPT-85311 Venipuncture Draw Fee 07:59:02 CDT
--- OUTSIDE RECORDS SUMMARY | 2019-10-10 20:53 | XMS REPORT | Clinical Summary ---
Author Author Beka, Son Rodriguez [facility] Address Unknown Phone Unavailable Allergies, Adverse [...] pérez MD Pharyngitis, acute ICD-462 Inactive Ned Navrarete MD Medication List Medication Instructions Start Date Stop Date Generic Name NDC Status Provider Patient Instruction ZOFRAN ODT 4 MG TBDP 1 po q6hr PRN Nausea ONDADOREEN PEÑA 39475326633 Active Mariana Moses APRN Active OMEPRAZOLE 20 MG CPDR 1 tablet by mouth daily O MEPRAZOLE 64695116693 No Longer Active Mariana Moses APRN Active LATUDA 80 MG TABS 1 tablet daily LURASIDONE HCL 64031622000 No Longer Active Mariana Moses APRN Active ZOVIRAX 400 MG TABS Take 1 tablet every 8 hours as needed 2 ACYCLOVIR 17271560793 No Longer Active Ned Navarrete MD Activ e ZITHROMAX Z-CHACE 250 MG TABS 2 today, then 1 daily for 4 days 201 10/06/11 AZITHROMYCIN 59336136032 No Longer Active Ned Navarrete MD Active HYDROXYZINE HCL 25 MG TABS Take 1-2 tablets daily HYDROXYZINE HCL 91115777116 Active Ned Navarrete MD Active [facility] MEL[facility] 3 MG TABS Take 1 tablet at bedtime. MELATONIN 75257671939 Active Ned Navarrete MD Active BIOTIN 1000 MCG TABS Take 2 tablets daily BIOTIN 67059670424 Active Ned Navarrete MD Active TOPAMAX 100 MG TABS 1 tablet daily TOPIRAMATE 54 394663373 No Longer Active Ned Navarrete MD Active AMOXICILLIN 500 MG CAPS 2 po BID x 10 days AMOX ICILLIN 08288494252 No Longer Active Saskia Simon MD PhD Active NAPROSYN 375 MG TAB 1 twice a day as needed for chest pain 04/01 NAPROXEN 49396460956 No Longer Active Saskia Simon MD PhD Active HYDROCORTISONE 2.5 % EXT CREA Apply three times a day to aff ected area HYDROCORTISONE 58500231976 No Longer Active Ned Navarrete MD Active LORATADINE 10 MG TABS 1 tablet by mouth daily L ORATADINE 34972957531 Active Mariana Msoes ALEXIS Active ORTHO TRI-CYCLEN (28) 0.18/0.215/0.25 MG-35 MCG TABS 1 daily 2 NORGESTIM-ETH ESTRAD TRIPHASIC 48397158308 Active Ned Navarrete MD Active TOPIRAMATE 50 MG TABS 1 QD TOPIRAMATE 17624084190 No Longer Active Ned Navarrete MD Active FANAPT 6 MG TABS 1 BID ILOPERIDONE 48579635644 No L onger Active Ned Navarrete MD Active CIPROFLOXACIN HCL 0.3 % SOLN 1 drop in right eye every 2 hours for 2 days, then 1 drop four times a day CIPROFLOXACIN HCL 12685160599 No Longer Active Ned Navarrete MD Active LORATADINE 10 MG TABS 1 tablet by mouth daily L ORATADINE 16992213538 No Longer Active Ned Navarrete MD Active RANITIDINE HCL 150 MG CAPS 1 twice a day RANITI DINE HCL 48058220435 No Longer Active Ned Navarrete MD Active RANITIDINE HCL 150 MG CAPS 1 twice a day RANITIDINE HCL 150 MG CAPS 681784 RANITIDINE HCL Inactive LORATADINE 10 MG TABS 1 tablet by mouth daily LORATADINE 10 MG TABS 623355 LORATADINE Inactive CIPROFLOXACIN HCL 0.3 % SOLN 1 drop in right eye every 2 hours for 2 days, then 1 drop four times a day CIPROFLOXACIN HCL 0.3 % SOLN 640475 CIPROFLOXACIN HCL Inactive FANAPT 6 MG TABS 1 BID FANAPT 6 MG TABS ILO PERIDONE Inactive TOPIRAMATE 50 MG TABS 1 QD TOPIRAMATE 50 MG TABS 1 90070 TOPIRAMATE Inactive HYDROCORTISONE 2.5 % EXT CREA Apply three times a day to aff ected area HYDROCORTISONE 2.5 % EXT CREA 217370 HYDROCORTIS ONE Inactive NAPROSYN 375 MG TAB 1 twice a day as needed for chest pain 04/01 NAPROSYN 375 MG TAB 19790729 NAPROXEN Inactive TOPAMAX 100 MG TABS 1 tablet daily TOPAMAX 100 MG TABS 1998 TOPIRAMATE Inactive ZOVIRAX 400 MG TABS Take 1 tablet every 8 hours as needed 2 ZOVIRAX 400 MG TABS 376212 ACYCLOVIR Inactive LATUDA 80 MG TABS 1 tablet daily LATUDA 80 MG TA BS LURASIDONE HCL Inactive OMEPRAZOLE 20 MG CPDR 1 tablet by mouth daily OMEPRAZOLE 20 MG CPDR 130566 OMEPRAZOLE Inactive AMOXICILLIN 500 MG CAPS 2 po BID x 10 days AMOXICILLIN 500 MG CAPS 111331 AMOXICILLIN Inactive ZITHROMAX Z-CHACE 250 MG TABS 2 today, then 1 daily for 4 days 201 10/06/11 ZITHROMAX Z-CHACE 250 MG TABS 4686120 AZITHROMYCIN Inac tive Advance Directives Directive Description [...] 18 yo)) Fluzone preservative free (>3 yrs.) [[id number]] Influenza, seasonal, injectable, preservative free MPSV4 (meningococcal polysaccharide vaccination) Menactra meningococcal polysaccharide vaccine (MPSV4) hepatitis A immunization #1 Havrix-Pedi hepa titis A vaccine, unspecified formulation Adacel (Tetanus, reduced Diphtheria, and acellular Per tussis Immunization) Adacel [[id number]] tetanus toxoid, reduced diph theria toxoid, and [...] Range Description blood pressure, diastolic - 8462-4 76 mm[Hg] BP michele blood pressure, systolic - 8480-6 110 mm[Hg] BP sys height E&M - 8302-2 66.5 [in_us] Bdy h eight pulse rate E&M - 8867-4 103 /min H eart rate temperature E&M 99.1 [degF] Body temp erature weight E&M - 3141-9 160.50 [lb_av] Weigh t Measured blood pressure, diastolic - 8462-4 75 mm[Hg] BP michele blood pressure, systolic - 8480-6 113 mm[Hg] BP sys height E&M - 8302-2 66.5 [in_us] Bdy h eight pulse rate E&M - 8867-4 65 /min H eart rate temperature E&M 98.9 [degF] Body temp erature weight E&M - 3141-9 162 [lb_av] Weigh t Measured blood pressure, diastolic - 8462-4 65 mm[Hg] BP michele blood pressure, systolic - 8480-6 99 mm[Hg] BP sys height E&M - 8302-2 66.5 [in_us] Bdy h eight pulse rate E&M - 8867-4 64 /min H eart rate temperature E&M 98.1 [degF] Body temp erature weight E&M - 3141-9 149 [lb_av] Weigh t Measured blood pressure, diastolic - 8462-4 66 mm[Hg] BP michele blood pressure, systolic - 8480-6 102 mm[Hg] BP sys height E&M - 8302-2 66.5 [in_us] Bdy h eight pulse rate E&M - 8867-4 62 /min H eart rate temperature E&M 99.0 [degF] Body temp erature weight E&M - 3141-9 148 [lb_av] Weigh t Measured Encounters Code Encounter Date Provider Facility CPT-96957 Level 3 Est. Patient 11:04:31 [employer] Mariana Torrez APRN [facility] CPT-70122 Level 4 Est. Patient 12:27:05 [employer] Ned Navarrete MD [facility] CPT-64792 Level 3 Est. Patient 11:31:58 [employer]IS[employer] OB Ned Navarrete MD [facility] CPT-88164 Level 3 Est. Patient 16:49:32 CDT Ned Navarrete MD [facility] CPT-23577 Level 4 Est. Patient 14:11:59 HIGH RISK OB Saskia green MD PhD [facility] CPT-72229 Level 3 Est. Patient 17:34:25 CDT Ned Navarrete MD [facility] CPT-53934 Level 3 Est. Patient 17:34:19 CDT Ned Navarrete MD [facility] CPT-64188 Level 3 Est. Patient 13:46:05 CDT Ned Navarrete MD [facility] CPT-30047 Level 3 Est. Patient 16:55:47 HIGH RISK OB Ned Navarrete MD [facility] CPT-97324 Level 2 Est. Patient 17:33:08 HIGH RISK OB Ned Navarrete MD [facility] CPT-13298 Level 3 Est. Patient 16:25:26 HIGH RISK OB Ned Navarrete MD [facility] Procedures Code Procedure Name Date Entry Date Standard Desc ription CPT-033 KB Med Screen 10:29:44 CDT CPT-28526 Administration 2+ single or combination vaccines inc oral 14:02:47 H[employer]IS[employer] OB CPT-69049 Administration single or combination vac cine inc oral 14:02:47 HIGH RISK OB CPT-30425 Hepatitis A ped/adol 2 dose schedule 14:02:47 HIGH RISK OB CPT-29725 Gardasil 14:02:47 HIGH RISK OB CPT-62326 Administration single or combination vac cine inc oral 11:40:38 HIGH RISK OB CPT-74391 Gardasil 11:40:38 HIGH RISK OB CPT-93883 Administration single or combination vac cine inc oral 09:45:00 CDT CPT-60600 Influenza Preservative Free split virus >age 3 09:45:00 CDT CPT-20120 Venipuncture Draw Fee 07:59:02 CDT
--- OUTSIDE RECORDS SUMMARY | 2019-10-10 20:53 | XMS REPORT | Clinical Summary ---
Author Author Beka, Son Rodriguez [facility] Address Unknown Phone Unavailable Allergies, Adverse [...] 1 po q6hr PRN Nausea ONDADOREEN PEÑA 40287854260 Active Mariana Moses APRN Active OMEPRAZOLE 20 MG CPDR 1 tablet by mouth daily O MEPRAZOLE 95681970406 No Longer Active Mariana Moses APRN Active LATUDA 80 MG TABS 1 tablet daily LURASIDONE HCL 08115631339 No Longer Active Mariana Moses APRN Active ZOVIRAX 400 MG TABS Take 1 tablet every 8 hours as needed 2 ACYCLOVIR 56728799506 No Longer Active Ned Navarrete MD Activ e ZITHROMAX Z-CHACE 250 MG TABS 2 today, then 1 daily for 4 days 201 10/06/11 AZITHROMYCIN 81910168871 No Longer Active Ned Navarrete MD Active HYDROXYZINE HCL 25 MG TABS Take 1-2 tablets daily HYDROXYZINE HCL 86935022464 Active Ned Navarrete MD Active [facility] MELAT[facility] 3 MG TABS Take 1 tablet at bedtime. MELATONIN 91967587007 Active Ned Navarrete MD Active BIOTIN 1000 MCG TABS Take 2 tablets daily BIOTIN 19263759024 Active Ned Navarrete MD Active TOPAMAX 100 MG TABS 1 tablet daily TOPIRAMATE 54 216504303 No Longer Active Ned Navarrete MD Active AMOXICILLIN 500 MG CAPS 2 po BID x 10 days AMOX ICILLIN 18391289865 No Longer Active Saskia Simon MD PhD Active NAPROSYN 375 MG TAB 1 twice a day as needed for chest pain 04/01 NAPROXEN 04759594052 No Longer Active Saskia Simon MD PhD Active HYDROCORTISONE 2.5 % EXT CREA Apply three times a day to aff ected area HYDROCORTISONE 18690210936 No Longer Active Ned Navarrete MD Active LORATADINE 10 MG TABS 1 tablet by mouth daily L ORATADINE 78268552112 Active Mariana Moses ALEXIS Active ORTHO TRI-CYCLEN (28) 0.18/0.215/0.25 MG-35 MCG TABS 1 daily 2 NORGESTIM-ETH ESTRAD TRIPHASIC 27303404404 Active Ned Navarrete MD Active TOPIRAMATE 50 MG TABS 1 QD TOPIRAMATE 52976726467 No Longer Active Ned Navarrete MD Active FANAPT 6 MG TABS 1 BID ILOPERIDONE 63303589606 No L onger Active Ned Navarrete MD Active CIPROFLOXACIN HCL 0.3 % SOLN 1 drop in right eye every 2 hours for 2 days, then 1 drop four times a day CIPROFLOXACIN HCL 28946078215 No Longer Active Ned Navarrete MD Active LORATADINE 10 MG TABS 1 tablet by mouth daily L ORATADINE 44912311531 No Longer Active Ned Navarrete MD Active RANITIDINE HCL 150 MG CAPS 1 twice a day RANITI DINE HCL 17414195659 No Longer Active Ned Navarrete MD Active RANITIDINE HCL 150 MG CAPS 1 twice a day RANITIDINE HCL 150 MG CAPS 517263 RANITIDINE HCL Inactive LORATADINE 10 MG TABS 1 tablet by mouth daily LORATADINE 10 MG TABS 792850 LORATADINE Inactive CIPROFLOXACIN HCL 0.3 % SOLN 1 drop in right eye every 2 hours for 2 days, then 1 drop four times a day CIPROFLOXACIN HCL 0.3 % SOLN 707514 CIPROFLOXACIN HCL Inactive FANAPT 6 MG TABS 1 BID FANAPT 6 MG TABS ILO PERIDONE Inactive TOPIRAMATE 50 MG TABS 1 QD TOPIRAMATE 50 MG TABS 1 48171 TOPIRAMATE Inactive HYDROCORTISONE 2.5 % EXT CREA Apply three times a day to aff ected area HYDROCORTISONE 2.5 % EXT CREA 729819 HYDROCORTIS ONE Inactive NAPROSYN 375 MG TAB 1 twice a day as needed for chest pain 04/01 NAPROSYN 375 MG TAB 19790729 NAPROXEN Inactive TOPAMAX 100 MG TABS 1 tablet daily TOPAMAX 100 MG TABS 1998 TOPIRAMATE Inactive ZOVIRAX 400 MG TABS Take 1 tablet every 8 hours as needed 2 ZOVIRAX 400 MG TABS 612376 ACYCLOVIR Inactive LATUDA 80 MG TABS 1 tablet daily LATUDA 80 MG TA BS LURASIDONE HCL Inactive OMEPRAZOLE 20 MG CPDR 1 tablet by mouth daily OMEPRAZOLE 20 MG CPDR 410811 OMEPRAZOLE Inactive AMOXICILLIN 500 MG CAPS 2 po BID x 10 days AMOXICILLIN 500 MG CAPS 894722 AMOXICILLIN Inactive ZITHROMAX Z-CHACE 250 MG TABS 2 today, then 1 daily for 4 days 201 10/06/11 ZITHROMAX Z-CHACE 250 MG TABS 0943682 AZITHROMYCIN Inac tive Advance Directives Directive Description [...] 16 yo)) Fluzone preservative free (>3 yrs.) [[id number]] Influenza, seasonal, injectable, preservative free MPSV4 (meningococcal polysaccharide vaccination) Menactra meningococcal polysaccharide vaccine (MPSV4) hepatitis A immunization #1 Havrix-Pedi hepa titis A vaccine, unspecified formulation Adacel immunization Adacel [[id number]] tetanus toxo id, reduced diphtheria toxoid, and [...] weight E&M 149 [lb_av] Weight Measure d Diagnostic Results Date Name Value Unit Range Description [facility] Report: [facility] human chorionic gonadotropin , urine, qualitative (urine test) Negative Negative Encounters Code Encounter Date Provider Facility CPT-19129 Level 3 Est. Patient 11:04:31 [employer] Mariana Torrez APRN [facility] CPT-66824 Level 4 Est. Patient 12:27:05 [employer] Ned Navarrete MD [facility] CPT-95563 Level 3 Est. Patient 11:31:58 [employer] Ned Navarrete MD [facility] CPT-15419 Level 3 Est. Patient 16:49:32 CDT Ned Navarrete MD [facility] CPT-42530 Level 4 Est. Patient 14:11:59 [employer] Saskia green MD PhD [facility] CPT-76777 Level 3 Est. Patient 17:34:25 CDT Ned Navarrete MD [facility] CPT-01403 Level 3 Est. Patient 17:34:19 CDT Ned Navarrete MD [facility] CPT-81143 Level 3 Est. Patient 13:46:05 CDT Ned Navarrete MD [facility] CPT-22528 Level 3 Est. Patient 16:55:47 [employer] Ned Navarrete MD [facility] CPT-60499 Level 2 Est. Patient 17:33:08 [employer] Ned Navarrete MD [facility] CPT-23719 Level 3 Est. Patient 16:25:26 [employer] Ned Navarrete MD [facility] Procedures Code Procedure Name Date Entry Date Standard Desc ription CPT-033 KB Med Screen 10:29:44 CDT CPT-32233 Administration 2+ single or combination vaccines inc oral 14:02:47 [employer] CPT-62857 Administration single or combination vac cine inc oral 14:02:47 [employer] CPT-69242 Hepatitis A ped/adol 2 dose schedule 14:02:47 [employer] CPT-48754 Gardasil 14:02:47 [employer] CPT-34286 Administration single or combination vac cine inc oral 11:40:38 [employer] CPT-69901 Gardasil 11:40:38 [employer] CPT-42099 Administration single or combination vac cine inc oral 09:45:00 CDT CPT-82976 Influenza Preservative Free split virus >age 3 09:45:00 CDT CPT-31833 Venipuncture Draw Fee 07:59:02 CDT
--- OUTSIDE RECORDS SUMMARY | 2019-10-10 20:53 | XMS REPORT ---
Author Author Son EDMOND [facility] eClinicalWorks Address Unknown Phone Unavailable Care Team Providers Care Business Support Manager Name Role Phone JUAN MANUEL EDMOND CP Unavailable Allergies, Adverse Reactions, Alerts Substance Reaction Event Type N.K.D.A. Info Not Available Non Drug Allergy Problems Problem Type Condition Code Onset Dates Condition Statu s Assessment Dental examination Z01.20 Active Medications Medication Code System Code Instructions Start Date End Date Status Dosage Latuda [facility] [address]-20 not define d Procedures Procedure Coding System Code Date INTRAORL-PERIAPICAL 1 FILM 31246 CPT-4 D0220 May 01, 2016 INTRAORL-PERIAPICAL EA ADD FILM CPT-4 D0230 May 01, 2016 COMP ORAL EVALUATION - NEW/EST PT CPT-4 D0150 May 01, 2016 BITEWINGS - FOUR FILMS CPT-4 D0274 May 01, 2 016 INTRAORL-PERIAPICAL EA ADD FILM CPT-4 D0230 May 01, 2016 PROPHYLAXIS - ADULT CPT-4 D1110 May 01, 2016 Results No Known Results Summary Purpose eClinicalWorks Submission
--- OUTSIDE RECORDS SUMMARY | 2019-10-10 20:53 | XMS REPORT ---
Author Author Son ALEXANDER [facility] eClinicalWorks Address Unknown Phone Unavailable Care Team Providers Care Central Processing Technician Name Role Phone MARELY ALEXANDER CP Unavailable Allergies, Adverse Reactions, Alerts Substance Reaction Event Type N.K.D.A. Info Not Available Non Drug Allergy Problems Problem Type Condition Code Onset Dates Condition Statu s Assessment Dental examination Z01.20 Active Medications Medication Code System Code Instructions Start Date End Date Status Dosage Latuda [facility] [id number] not define d [facility] [id number] not defined Procedures Procedure Coding System Code Date SEDATIVE FILLING CPT-4 D2940 Jun 05, 2016 Vital Signs Date/Time: Jun 05, 2016 Blood Pressure Diastolic 58 mmHg Blood Pressure Systolic 99 mmHg Results No Known Results Summary Purpose eClinicalWorks Submission
--- OUTSIDE RECORDS SUMMARY | 2019-10-10 20:54 | XMS REPORT | Clinical Summary ---
Author Author Beka, Son Rodriguez [facility] Address Unknown [...] 1 po q6hr PRN Nausea ONDADOREEN PEÑA [id number] Active Mariana Moses APRN Active OMEPRAZOLE 20 MG CPDR 1 tablet by mouth daily O MEPRAZOLE 99780113982 No Longer Active Mariana Moses APRN Active LATUDA 80 MG TABS 1 tablet daily LURASIDONE HCL 26053259296 No Longer Active Mariana Moses APRN Active ZOVIRAX 400 MG TABS Take 1 tablet every 8 hours as needed 2 ACYCLOVIR 04851698595 No Longer Active Ned Navarrete MD Activ e ZITHROMAX Z-CHACE 250 MG TABS 2 today, then 1 daily for 4 days 201 10/06/11 AZITHROMYCIN 15813171504 No Longer Active Ned Navarrete MD Active HYDROXYZINE HCL 25 MG TABS Take 1-2 tablets daily HYDROXYZINE HCL 70223473340 Active Ned Navarrete MD Active [facility] MEL[facility] 3 MG TABS Take 1 tablet at bedtime. MELATONIN 09702467806 Active Ned Navarrete MD Active BIOTIN 1000 MCG TABS Take 2 tablets daily BIOTIN 09841070186 Active Ned Navarrete MD Active TOPAMAX 100 MG TABS 1 tablet daily TOPIRAMATE 54 441063926 No Longer Active Ned Navarrete MD Active AMOXICILLIN 500 MG CAPS 2 po BID x 10 days AMOX ICILLIN 23055385739 No Longer Active Saskia Simon MD PhD Active NAPROSYN 375 MG TAB 1 twice a day as needed for chest pain 04/01 NAPROXEN 85238203882 No Longer Active Saskia Simon MD PhD Active HYDROCORTISONE 2.5 % EXT CREA Apply three times a day to aff ected area HYDROCORTISONE 31895990274 No Longer Active Ned Navarrete MD Active LORATADINE 10 MG TABS 1 tablet by mouth daily L ORATADINE 69384611396 Active Mariana Moses ALEXIS Active ORTHO TRI-CYCLEN (28) 0.18/0.215/0.25 MG-35 MCG TABS 1 daily 2 NORGESTIM-ETH ESTRAD TRIPHASIC 24959875050 Active Ned Navarrete MD Active TOPIRAMATE 50 MG TABS 1 QD TOPIRAMATE 63740615895 No Longer Active Ned Navarrete MD Active FANAPT 6 MG TABS 1 BID ILOPERIDONE 80748059477 No L onger Active Ned Navarrete MD Active CIPROFLOXACIN HCL 0.3 % SOLN 1 drop in right eye every 2 hours for 2 days, then 1 drop four times a day CIPROFLOXACIN HCL 74069031609 No Longer Active Ned Navarrete MD Active LORATADINE 10 MG TABS 1 tablet by mouth daily L ORATADINE 91871986654 No Longer Active Ned Navarrete MD Active RANITIDINE HCL 150 MG CAPS 1 twice a day RANITI DINE HCL 35168103892 No Longer Active Ned Navarrete MD Active RANITIDINE HCL 150 MG CAPS 1 twice a day RANITIDINE HCL 150 MG CAPS 592908 RANITIDINE HCL Inactive LORATADINE 10 MG TABS 1 tablet by mouth daily LORATADINE 10 MG TABS 434068 LORATADINE Inactive CIPROFLOXACIN HCL 0.3 % SOLN 1 drop in right eye every 2 hours for 2 days, then 1 drop four times a day CIPROFLOXACIN HCL 0.3 % SOLN 304653 CIPROFLOXACIN HCL Inactive FANAPT 6 MG TABS 1 BID FANAPT 6 MG TABS ILO PERIDONE Inactive TOPIRAMATE 50 MG TABS 1 QD TOPIRAMATE 50 MG TABS 1 44466 TOPIRAMATE Inactive HYDROCORTISONE 2.5 % EXT CREA Apply three times a day to aff ected area HYDROCORTISONE 2.5 % EXT CREA 690146 HYDROCORTIS ONE Inactive NAPROSYN 375 MG TAB 1 twice a day as needed for chest pain 04/01 NAPROSYN 375 MG TAB 19790729 NAPROXEN Inactive TOPAMAX 100 MG TABS 1 tablet daily TOPAMAX 100 MG TABS 1998 TOPIRAMATE Inactive ZOVIRAX 400 MG TABS Take 1 tablet every 8 hours as needed 2 ZOVIRAX 400 MG TABS 125148 ACYCLOVIR Inactive LATUDA 80 MG TABS 1 tablet daily LATUDA 80 MG TA BS LURASIDONE HCL Inactive OMEPRAZOLE 20 MG CPDR 1 tablet by mouth daily OMEPRAZOLE 20 MG CPDR 931017 OMEPRAZOLE Inactive AMOXICILLIN 500 MG CAPS 2 po BID x 10 days AMOXICILLIN 500 MG CAPS 055296 AMOXICILLIN Inactive ZITHROMAX Z-CHACE 250 MG TABS 2 today, then 1 daily for 4 days 201 10/06/11 ZITHROMAX Z-CHACE 250 MG TABS 9100663 AZITHROMYCIN Inac tive Advance Directives Directive Description [...] 16 yo)) Fluzone preservative free (>3 yrs.) [[id number]] Influenza, seasonal, injectable, preservative free MPSV4 (meningococcal polysaccharide vaccination) Menactra meningococcal polysaccharide vaccine (MPSV4) hepatitis A immunization #1 Havrix-Pedi hepa titis A vaccine, unspecified formulation Adacel (Tetanus, reduced Diphtheria, and acellular Per tussis Immunization) Adacel [[id number]] tetanus toxoid, reduced diph theria toxoid, and [...] Measured Encounters Code Encounter Date Provider Facility CPT-23152 Level 3 Est. Patient 11:04:31 PREPARED FOOD[employer] TEAM LEADER Mariana Torrez APRN [facility] CPT-53995 Level 4 Est. Patient 12:27:05 PREPARED FOODS TEAM LEADER Ned Navarrete MD [facility] CPT-01400 Level 3 Est. Patient 11:31:58 PREPARED [employer]S TEAM LEADER Ned Navarrete MD [facility] CPT-32069 Level 3 Est. Patient 16:49:32 CDT Ned Navarrete MD [facility] CPT-94244 Level 4 Est. Patient 14:11:59 PREPARED FOODS TEAM LEADER Saskia green MD PhD [facility] CPT-49330 Level 3 Est. Patient 17:34:25 CDT Ned Navarrete MD [facility] CPT-39767 Level 3 Est. Patient 17:34:19 CDT Ned Navarrete MD [facility] CPT-20454 Level 3 Est. Patient 13:46:05 CDT Ned Navarrete MD [facility] CPT-38176 Level 3 Est. Patient 16:55:47 PREPARED FOODS TEAM LEADER Ned Navarrete MD [facility] CPT-32654 Level 2 Est. Patient 17:33:08 PREPARED FOODS TEAM LEADER Ned Navarrete MD [facility] CPT-58329 Level 3 Est. Patient 16:25:26 PREPARED FOODS TEAM LEADER Ned Navarrete MD [facility] Procedures Code Procedure Name Date Entry Date Standard Desc ription CPT-033 KB Med Screen 10:29:44 CDT CPT-94756 Administration 2+ single or combination vaccines inc oral 14:02:47 PREPARED [employer] TEAM LEADER CPT-70015 Administration single or combination vac cine inc oral 14:02:47 PREPARED [employer] TEAM LEADER CPT-08861 Hepatitis A ped/adol 2 dose schedule 14:02:47 PREPARED FOODS TEAM LEADER CPT-55942 Gardasil 14:02:47 PREPARED [employer]ODS TEAM LEADER CPT-14045 Administration single or combination vac cine inc oral 11:40:38 PREPARED FOODS TEAM LEADER CPT-66414 Gardasil 11:40:38 PREPARED FOODS TEAM LEADER CPT-85344 Administration single or combination vac cine inc oral 09:45:00 CDT CPT-13005 Influenza Preservative Free split virus >age 3 09:45:00 CDT CPT-68035 Venipuncture Draw Fee 07:59:02 CDT
--- OUTSIDE RECORDS SUMMARY | 2019-10-10 20:54 | XMS REPORT | Clinical Summary ---
Author Author Beka, Son Rodriguez [facility] Address Unknown Phone Unavailable Allergies, Adverse Reactions, [...] MCG TABS 1 daily NORGESTIM-ETH ESTRAD TRIPHASIC 15805441128 No Longer Active Ned Navarrete MD Active ZOFRAN ODT 4 MG TBDP 1 po q6hr PRN Nausea ONDAN SETRON 39009068792 No Longer Active Ned Navarrete MD Active [facility] MELAT[facility]IN 3 MG TABS Take 1 tablet at bedtime. 2013 MELATONIN 92501061702 No Longer Active Ned Navarrete MD Activ e BIOTIN 1000 MCG TABS Take 2 tablets daily BIOTI N 85444613523 No Longer Active Ned Navarrete MD Active OMEPRAZOLE 20 MG CPDR 1 tablet by mouth daily O MEPRAZOLE 58280933228 No Longer Active Mariana Moses APRN Active LATUDA 80 MG TABS 1 tablet daily LURASIDONE HCL 52591529936 No Longer Active Mariana Moses APRN Active ZOVIRAX 400 MG TABS Take 1 tablet every 8 hours as needed 2 ACYCLOVIR 78961265661 No Longer Active Ned Navarrete MD Activ e ZITHROMAX Z-CHACE 250 MG TABS 2 today, then 1 daily for 4 days 201 10/06/11 AZITHROMYCIN 70594282633 No Longer Active Ned Navarrete MD Active HYDROXYZINE HCL 25 MG TABS Take 1-2 tablets daily HYDROXYZINE HCL 09062070672 Active Ned Navarrete MD Active TOPAMAX 100 MG TABS 1 tablet daily TOPIRAMATE 54 355484714 No Longer Active Ned Navarrete MD Active AMOXICILLIN 500 MG CAPS 2 po BID x 10 days AMOX ICILLIN 81601270293 No Longer Active Saskia Torri Madril MD PhD Active NAPROSYN 375 MG TAB 1 twice a day as needed for chest pain 04/01 NAPROXEN 68069716791 No Longer Active Saskia Simon MD PhD Active HYDROCORTISONE 2.5 % EXT CREA Apply three times a day to aff ected area HYDROCORTISONE 10290169532 No Longer Active eNd Navarrete MD Active LORATADINE 10 MG TABS 1 tablet by mouth daily L ORATADINE 55104036213 Active Mariana Moses APRN Active TOPIRAMATE 50 MG TABS 1 QD TOPIRAMATE 93452441735 No Longer Active Ned Navarrete MD Active FANAPT 6 MG TABS 1 BID ILOPERIDONE 46386680685 No L onger Active Ned Navarrete MD Active CIPROFLOXACIN HCL 0.3 % SOLN 1 drop in right eye every 2 hours for 2 days, then 1 drop four times a day CIPROFLOXACIN HCL 80180979284 No Longer Active Ned Navarrete MD Active LORATADINE 10 MG TABS 1 tablet by mouth daily L ORATADINE 94201275799 No Longer Active Ned Navarrete MD Active RANITIDINE HCL 150 MG CAPS 1 twice a day RANITI DINE HCL 16780471566 No Longer Active Ned Navarrete MD Active RANITIDINE HCL 150 MG CAPS 1 twice a day RANITIDINE HCL 150 MG CAPS 646466 RANITIDINE HCL Inactive LORATADINE 10 MG TABS 1 tablet by mouth daily LORATADINE 10 MG TABS 713580 LORATADINE Inactive CIPROFLOXACIN HCL 0.3 % SOLN 1 drop in right eye every 2 hours for 2 days, then 1 drop four times a day CIPROFLOXACIN HCL 0.3 % SOLN 944585 CIPROFLOXACIN HCL Inactive FANAPT 6 MG TABS 1 BID FANAPT 6 MG TABS ILO PERIDONE Inactive TOPIRAMATE 50 MG TABS 1 QD TOPIRAMATE 50 MG TABS 1 51040 TOPIRAMATE Inactive HYDROCORTISONE 2.5 % EXT CREA Apply three times a day to aff ected area HYDROCORTISONE 2.5 % EXT CREA 026847 HYDROCORTIS ONE Inactive NAPROSYN 375 MG TAB [...] by mouth daily OMEPRAZOLE 20 MG CPDR 810916 OMEPRAZOLE Inactive BIOTIN 1000 MCG TABS Take 2 tablets daily BIOTIN 1000 MCG TABS 693802 BIOTIN Inactive [facility] MEL[facility] 3 MG TABS Take 1 tablet at bedtime. 2013 [facility] MEL[facility]IN 3 MG TABS 522030 MELATONIN Inactive ZOFRAN ODT 4 MG TBDP 1 po q6hr PRN Nausea ZOFRAN ODT 4 MG TBDP 759111 ONDANSETRON Inactive ORTHO TRI-CYCLEN (28) 0.18/0.215/0.25 MG-35 MCG TABS 1 daily ORTHO TRI-CYCLEN (28) 0.18/0.215/0.25 MG-35 MCG TABS 414905 NORGESTIM-ETH ESTRAD TRIPHASIC Inactive AMOXICILLIN 500 MG CAPS 2 po BID x 10 days AMOXICILLIN 500 MG CAPS 976595 AMOXICILLIN Inactive ZITHROMAX Z-CHACE 250 MG TABS 2 today, then 1 daily for 4 days 201 10/06/11 ZITHROMAX Z-CHACE 250 MG TABS 2999269 AZITHROMYCIN Inac tive Advance Directives Directive Description [...] 18 yo)) Fluzone preservative free (>3 yrs.) [[id number]] Influenza, seasonal, injectable, preservative free MPSV4 (meningococcal polysaccharide vaccination) Menactra meningococcal polysaccharide vaccine (MPSV4) hepatitis A immunization #1 Havrix-Pedi hepa titis A vaccine, unspecified formulation Adacel immunization Adacel [[id number]] tetanus toxo id, reduced diphtheria toxoid, and [...] Name Value Unit Range Description Lab Report: [facility] [place] - Chemistry human chorionic gonadotropin , urine, qualitative (urine test) Negative Negative Encounters Code Encounter Date Provider Facility CPT-21478 Level 3 Est. Patient 17:42:32 CDT Ned Navarrete MD [facility] CPT-12598 Level 3 Est. Patient 11:04:31 [employer] Mariana Torrez APRN [facility] CPT-66109 Level 4 Est. Patient 12:27:05 [employer] Ned Navarrete MD [facility] CPT-08043 Level 3 Est. Patient 11:31:58 [employer] Ned Navarrete MD [facility] CPT-08018 Level 3 Est. Patient 16:49:32 CDT Ned Navarrete MD [facility] CPT-95085 Level 4 Est. Patient 14:11:59 [employer] Saskia green MD PhD [facility] CPT-38323 Level 3 Est. Patient 17:34:25 CDT Ned Navarrete MD [facility] CPT-08921 Level 3 Est. Patient 17:34:19 CDT Ned Navarrete MD [facility] CPT-51471 Level 3 Est. Patient 13:46:05 CDT Ned Navarrete MD [facility] CPT-29669 Level 3 Est. Patient 16:55:47 [employer] Ned Navarrete MD [facility] CPT-89970 Level 2 Est. Patient 17:33:08 [employer] Ned Navarrete MD [facility] CPT-56055 Level 3 Est. Patient 16:25:26 [employer] Ned Navarrete MD [facility] Procedures Code Procedure Name Date Entry Date Standard Desc ription CPT-033 KB Med Screen 10:29:44 CDT CPT-26422 Administration 2+ single or combination vaccines inc oral 14:02:47 [employer] CPT-10246 Administration single or combination vac cine inc oral 14:02:47 [employer] CPT-76486 Hepatitis A ped/adol 2 dose schedule 14:02:47 [employer] CPT-63747 Gardasil 14:02:47 [employer] CPT-41025 Administration single or combination vac cine inc oral 11:40:38 [employer] CPT-08641 Gardasil 11:40:38 [employer] CPT-00637 Administration single or combination vac cine inc oral 09:45:00 CDT CPT-55852 Influenza Preservative Free split virus >age 3 09:45:00 CDT CPT-08383 Venipuncture Draw Fee 07:59:02 CDT
--- OUTSIDE RECORDS SUMMARY | 2019-10-10 20:54 | XMS REPORT | Clinical Summary ---
Author Author Beka, Son Rodriguez [facility] Address Unknown Phone Unavailable Allergies, Adverse [...] MCG TABS 1 daily NORGESTIM-ETH ESTRAD TRIPHASIC 87944638827 No Longer Active Ned Navarrete MD Active ZOFRAN ODT 4 MG TBDP 1 po q6hr PRN Nausea ONDAN SETRON 78737280636 No Longer Active Ned Navarrete MD Active [facility] MELAT[facility] 3 MG TABS Take 1 tablet at bedtime. 2013 MELATONIN 27930526259 No Longer Active Ned Navarrete MD Activ e BIOTIN 1000 MCG TABS Take 2 tablets daily BIOTI N 63720879218 No Longer Active Ned Navarrete MD Active OMEPRAZOLE 20 MG CPDR 1 tablet by mouth daily O MEPRAZOLE 45403433431 No Longer Active Mariana Moses APRN Active LATUDA 80 MG TABS 1 tablet daily LURASIDONE HCL 44802721339 No Longer Active Mariana Moses APRN Active ZOVIRAX 400 MG TABS Take 1 tablet every 8 hours as needed 2 ACYCLOVIR 69630383501 No Longer Active Ned Navarrete MD Activ e ZITHROMAX Z-CHACE 250 MG TABS 2 today, then 1 daily for 4 days 201 10/06/11 AZITHROMYCIN 26396286676 No Longer Active Ned Navarrete MD Active HYDROXYZINE HCL 25 MG TABS Take 1-2 tablets daily HYDROXYZINE HCL 16784174630 Active Ned Navarrete MD Active TOPAMAX 100 MG TABS 1 tablet daily TOPIRAMATE 54 141044765 No Longer Active Ned Navarrete MD Active AMOXICILLIN 500 MG CAPS 2 po BID x 10 days AMOX ICILLIN 53095291074 No Longer Active Saskia Torri Madril MD PhD Active NAPROSYN 375 MG TAB 1 twice a day as needed for chest pain 04/01 NAPROXEN 20105938871 No Longer Active Saskia Simon MD PhD Active HYDROCORTISONE 2.5 % EXT CREA Apply three times a day to aff ected area HYDROCORTISONE 55814607910 No Longer Active Ned Navarrete MD Active LORATADINE 10 MG TABS 1 tablet by mouth daily L ORATADINE 50459078714 Active Mariana Moses APRN Active TOPIRAMATE 50 MG TABS 1 QD TOPIRAMATE 97533068785 No Longer Active Ned Navarrete MD Active FANAPT 6 MG TABS 1 BID ILOPERIDONE 34135087978 No L onger Active Ned Navarrete MD Active CIPROFLOXACIN HCL 0.3 % SOLN 1 drop in right eye every 2 hours for 2 days, then 1 drop four times a day CIPROFLOXACIN HCL 23111301928 No Longer Active Ned Navarrete MD Active LORATADINE 10 MG TABS 1 tablet by mouth daily L ORATADINE 60344784815 No Longer Active Ned Navarrete MD Active RANITIDINE HCL 150 MG CAPS 1 twice a day RANITI DINE HCL 00197909765 No Longer Active Ned Navarrete MD Active RANITIDINE HCL 150 MG CAPS 1 twice a day RANITIDINE HCL 150 MG CAPS 559235 RANITIDINE HCL Inactive LORATADINE 10 MG TABS 1 tablet by mouth daily LORATADINE 10 MG TABS 572452 LORATADINE Inactive CIPROFLOXACIN HCL 0.3 % SOLN 1 drop in right eye every 2 hours for 2 days, then 1 drop four times a day CIPROFLOXACIN HCL 0.3 % SOLN 785089 CIPROFLOXACIN HCL Inactive FANAPT 6 MG TABS 1 BID FANAPT 6 MG TABS ILO PERIDONE Inactive TOPIRAMATE 50 MG TABS 1 QD TOPIRAMATE 50 MG TABS 1 85483 TOPIRAMATE Inactive HYDROCORTISONE 2.5 % EXT CREA Apply three times a day to aff ected area HYDROCORTISONE 2.5 % EXT CREA 768003 HYDROCORTIS ONE Inactive NAPROSYN 375 MG TAB [...] by mouth daily OMEPRAZOLE 20 MG CPDR 798509 OMEPRAZOLE Inactive BIOTIN 1000 MCG TABS Take 2 tablets daily BIOTIN 1000 MCG TABS 186683 BIOTIN Inactive [facility] MEL[facility]IN 3 MG TABS Take 1 tablet at bedtime. 2013 [facility] MELATONIN 3 MG TABS 925133 MELATONIN Inactive ZOFRAN ODT 4 MG TBDP 1 po q6hr PRN Nausea ZOFRAN ODT 4 MG TBDP 904616 ONDANSETRON Inactive ORTHO TRI-CYCLEN (28) 0.18/0.215/0.25 MG-35 MCG TABS 1 daily ORTHO TRI-CYCLEN (28) 0.18/0.215/0.25 MG-35 MCG TABS 059382 NORGESTIM-ETH ESTRAD TRIPHASIC Inactive AMOXICILLIN 500 MG CAPS 2 po BID x 10 days AMOXICILLIN 500 MG CAPS 420980 AMOXICILLIN Inactive ZITHROMAX Z-CHACE 250 MG TABS 2 today, then 1 daily for 4 days 201 10/06/11 ZITHROMAX Z-CHACE 250 MG TABS 6338639 AZITHROMYCIN Inac tive Advance Directives Directive Description [...] 16 yo)) Fluzone preservative free (>3 yrs.) [[id number]] Influenza, seasonal, injectable, preservative free MPSV4 (meningococcal polysaccharide vaccination) Menactra meningococcal polysaccharide vaccine (MPSV4) hepatitis A immunization #1 Havrix-Pedi hepa titis A vaccine, unspecified formulation Adacel immunization Adacel [[id number]] tetanus toxo id, reduced diphtheria toxoid, and [...] Name Value Unit Range Description Lab Report: [facility] [place] - Chemistry human chorionic gonadotropin , urine, qualitative (urine test) Negative Negative Encounters Code Encounter Date Provider Facility CPT-15735 Level 3 Est. Patient 17:42:32 CDT Ned Navarrete MD [facility] CPT-48553 Level 3 Est. Patient 11:04:31 M[employer]ER [employer] POWDER Mariana Torrez APRN [facility] CPT-29449 Level 4 Est. Patient 12:27:05 MIXER DIAM[employer] POWDER Ned Navarrete MD [facility] CPT-53480 Level 3 Est. Patient 11:31:58 M[employer]ER [employer]AMOND POWDER Ned Navarrete MD [facility] CPT-61203 Level 3 Est. Patient 16:49:32 CDT Ned Navarrete MD [facility] CPT-38697 Level 4 Est. Patient 14:11:59 M[employer]ER DI[employer] POWDER Saskia green MD PhD [facility] CPT-73989 Level 3 Est. Patient 17:34:25 CDT Ned Navarrete MD [facility] CPT-26250 Level 3 Est. Patient 17:34:19 CDT Ned Navarrete MD [facility] CPT-52596 Level 3 Est. Patient 13:46:05 CDT Ned Navarrete MD [facility] CPT-61386 Level 3 Est. Patient 16:55:47 M[employer]ER [employer]AM[employer] POWDER Ned Navarrete MD [facility] CPT-90972 Level 2 Est. Patient 17:33:08 M[employer]ER [employer]AM[employer] POWDER Ned Navarrete MD [facility] CPT-82765 Level 3 Est. Patient 16:25:26 MIXER [employer]AM[employer] POWDER Ned Navarrete MD [facility] Procedures Code Procedure Name Date Entry Date Standard Desc ription CPT-033 KB Med Screen 10:29:44 CDT CPT-23575 Administration 2+ single or combination vaccines inc oral 14:02:47 [employer] CPT-62623 Administration single or combination vac cine inc oral 14:02:47 M[employer] CPT-32779 Hepatitis A ped/adol 2 dose schedule 14:02:47 MIXER DIAM[employer] POWDER CPT-70353 Gardasil 14:02:47 MIXER [employer] POW[employer] CPT-07936 Administration single or combination vac cine inc oral 11:40:38 MIXER [employer] POW[employer] CPT-73882 Gardasil 11:40:38 MIXER DI[employer] POWDER CPT-24692 Administration single or combination vac cine inc oral 09:45:00 CDT CPT-23019 Influenza Preservative Free split virus >age 3 09:45:00 CDT CPT-82897 Venipuncture Draw Fee 07:59:02 CDT
--- OUTSIDE RECORDS SUMMARY | 2019-10-10 20:54 | XMS REPORT | Clinical Summary ---
Author Author Admin, Son Chan Organization [facility] Address Unknown Phone Allergies, Adverse Reactions, Alerts [...] 1 po q6hr PRN Nausea ONDADOREEN RODRIGUEZN 82687046329 Active Mariana Moses APRN Active OMEPRAZOLE 20 MG CPDR 1 tablet by mouth daily O MEPRAZOLE 29536195312 No Longer Active Mariana Moses APRN Active LATUDA 80 MG TABS 1 tablet daily LURASIDONE HCL 32692416288 No Longer Active Mariana Moses APRN Active ZOVIRAX 400 MG TABS Take 1 tablet every 8 hours as needed 2 ACYCLOVIR 81318012461 No Longer Active Ned Navarrete MD Activ e ZITHROMAX Z-CHACE 250 MG TABS 2 today, then 1 daily for 4 days 201 10/06/11 AZITHROMYCIN 77249949794 No Longer Active Ned Navarrete MD Active HYDROXYZINE HCL 25 MG TABS Take 1-2 tablets daily HYDROXYZINE HCL 05623811536 Active Ned Navarrete MD Active [facility] MEL[facility] 3 MG TABS Take 1 tablet at bedtime. MELATONIN 04502441065 Active Ned Navarrete MD Active BIOTIN 1000 MCG TABS Take 2 tablets daily BIOTIN 30408013882 Active Ned Navarrete MD Active TOPAMAX 100 MG TABS 1 tablet daily TOPIRAMATE 54 853805554 No Longer Active Ned Navarrete MD Active AMOXICILLIN 500 MG CAPS 2 po BID x 10 days AMOX ICILLIN 26742051651 No Longer Active Saskia Simon MD PhD Active NAPROSYN 375 MG TAB 1 twice a day as needed for chest pain 04/01 NAPROXEN 30560036738 No Longer Active Saskia Simon MD PhD Active HYDROCORTISONE 2.5 % EXT CREA Apply three times a day to aff ected area HYDROCORTISONE 92158856792 No Longer Active Ned Navarrete MD Active LORATADINE 10 MG TABS 1 tablet by mouth daily L ORATADINE 69446803219 Active Mariana Moses APRN Active ORTHO TRI-CYCLEN (28) 0.18/0.215/0.25 MG-35 MCG TABS 1 daily 2 NORGESTIM-ETH ESTRAD TRIPHASIC 60957638791 Active Mariana Moses APRN Active TOPIRAMATE 50 MG TABS 1 QD TOPIRAMATE 01179950053 No Longer Active Ned Navarrete MD Active FANAPT 6 MG TABS 1 BID ILOPERIDONE 77497833506 No L onger Active Ned Navarrete MD Active CIPROFLOXACIN HCL 0.3 % SOLN 1 drop in right eye every 2 hours for 2 days, then 1 drop four times a day CIPROFLOXACIN HCL 50784997016 No Longer Active Ned Navarrete MD Active LORATADINE 10 MG TABS 1 tablet by mouth daily L ORATADINE 87080796198 No Longer Active Ned Navarrete MD Active RANITIDINE HCL 150 MG CAPS 1 twice a day RANITI DINE HCL 74216166040 No Longer Active Ned Navarrete MD Active RANITIDINE HCL 150 MG CAPS 1 twice a day RANITIDINE HCL 150 MG CAPS 443765 RANITIDINE HCL Inactive LORATADINE 10 MG TABS 1 tablet by mouth daily LORATADINE 10 MG TABS 064171 LORATADINE Inactive CIPROFLOXACIN HCL 0.3 % SOLN 1 drop in right eye every 2 hours for 2 days, then 1 drop four times a day CIPROFLOXACIN HCL 0.3 % SOLN 114353 CIPROFLOXACIN HCL Inactive FANAPT 6 MG TABS 1 BID FANAPT 6 MG TABS ILO PERIDONE Inactive TOPIRAMATE 50 MG TABS 1 QD TOPIRAMATE 50 MG TABS 1 44480 TOPIRAMATE Inactive HYDROCORTISONE 2.5 % EXT CREA Apply three times a day to aff ected area HYDROCORTISONE 2.5 % EXT CREA 120192 HYDROCORTIS ONE Inactive NAPROSYN 375 MG TAB 1 twice a day as needed for chest pain 04/01 NAPROSYN 375 MG TAB 19790729 NAPROXEN Inactive TOPAMAX 100 MG TABS 1 tablet daily TOPAMAX 100 MG TABS 302930 TOPIRAMATE Inactive ZOVIRAX 400 MG TABS Take 1 tablet every 8 hours as needed 2 ZOVIRAX 400 MG TABS 654764 ACYCLOVIR Inactive LATUDA 80 MG TABS 1 tablet daily LATUDA 80 MG TA BS LURASIDONE HCL Inactive OMEPRAZOLE 20 MG CPDR 1 tablet by mouth daily OMEPRAZOLE 20 MG CPDR 234026 OMEPRAZOLE Inactive AMOXICILLIN 500 MG CAPS 2 po BID x 10 days AMOXICILLIN 500 MG CAPS 988368 AMOXICILLIN Inactive ZITHROMAX Z-CHACE 250 MG TABS 2 today, then 1 daily for 4 days 201 10/06/11 ZITHROMAX Z-CHACE 250 MG TABS 9975818 AZITHROMYCIN Inac tive Advance Directives Directive Description [...] 16 yo)) Fluzone preservative free (>3 yrs.) [[id number]] Influenza, seasonal, injectable, preservative free MPSV4 (meningococcal polysaccharide vaccination) Menactra meningococcal polysaccharide vaccine (MPSV4) hepatitis A immunization #1 Havrix-Pedi hepa titis A vaccine, unspecified formulation Adacel immunization Adacel [[id number]] tetanus toxo id, reduced diphtheria toxoid, and [...] 142-424 Encounters Code Encounter Date Provider Facility CPT-41059 Level 3 Est. Patient 11:04:31 DECONTAMINATION WORKER Mariana Torrez APRN [facility] CPT-28132 Level 4 Est. Patient 12:27:05 DECONTAMINATION WORKER Ned Navarrete MD [facility] CPT-10601 Level 3 Est. Patient 11:31:58 DECONTAMINATION WORKER Ned Navarrete MD [facility] CPT-97866 Level 3 Est. Patient 16:49:32 CDT Ned Navarrete MD [facility] CPT-50056 Level 4 Est. Patient 14:11:59 DECONTAMINATION WORKER Saskia green MD PhD [facility] CPT-66235 Level 3 Est. Patient 17:34:25 CDT Ned Navarrete MD [facility] CPT-65594 Level 3 Est. Patient 17:34:19 CDT Ned Navarrete MD [facility] CPT-93338 Level 3 Est. Patient 13:46:05 CDT Ned Navarrete MD [facility] CPT-09125 Level 3 Est. Patient 16:55:47 DECONTAMINATION WORKER Ned Navarrete MD [facility] CPT-97667 Level 2 Est. Patient 17:33:08 DECONTAMINATION WORKER Ned Navarrete MD [facility] CPT-76103 Level 3 Est. Patient 16:25:26 DECONTAMINATION WORKER Ned Navarrete MD [facility] Procedures Code Procedure Name Date Entry Date Standard Desc ription CPT-033 [facility] Med Screen 10:29:44 CDT CPT-36084 Administration 2+ single or combination vaccines inc oral 14:02:47 DECONTAMINATION WORKER CPT-87690 Administration single or combination vac cine inc oral 14:02:47 DECONTAMINATION WORKER CPT-14484 Hepatitis A ped/adol 2 dose schedule 14:02:47 DECONTAMINATION WORKER CPT-91990 Gardasil 14:02:47 DECONTAMINATION WORKER CPT-71809 Administration single or combination vac cine inc oral 11:40:38 DECONTAMINATION WORKER CPT-34268 Gardasil 11:40:38 DECONTAMINATION WORKER CPT-99374 Administration single or combination vac cine inc oral 09:45:00 CDT CPT-01288 Influenza Preservative Free split virus >age 3 09:45:00 CDT CPT-48572 Venipuncture Draw Fee 07:59:02 CDT
--- OUTSIDE RECORDS SUMMARY | 2019-10-10 20:55 | XMS REPORT | Clinical Summary ---
Author Author Beka, Son Rodriguez [facility] Address Unknown Phone Unavailable Allergies, Adverse Reactions, [...] MCG TABS 1 daily NORGESTIM-ETH ESTRAD TRIPHASIC 06026834164 No Longer Active Ned Navarrete MD Active ZOFRAN ODT 4 MG TBDP 1 po q6hr PRN Nausea ONDAN SETRON 95443182602 No Longer Active Ned Navarrete MD Active [facility] MELAT[facility]IN 3 MG TABS Take 1 tablet at bedtime. 2013 MELATONIN 93454473694 No Longer Active Ned Navarrete MD Activ e BIOTIN 1000 MCG TABS Take 2 tablets daily BIOTI N 89170716974 No Longer Active Ned Navarrete MD Active OMEPRAZOLE 20 MG CPDR 1 tablet by mouth daily O MEPRAZOLE 82892431014 No Longer Active Mariana Moses APRN Active LATUDA 80 MG TABS 1 tablet daily LURASIDONE HCL 64937283638 No Longer Active Mariana Moses APRN Active ZOVIRAX 400 MG TABS Take 1 tablet every 8 hours as needed 2 ACYCLOVIR 97030618133 No Longer Active Ned Navarrete MD Activ e ZITHROMAX Z-CHACE 250 MG TABS 2 today, then 1 daily for 4 days 201 10/06/11 AZITHROMYCIN 54957749071 No Longer Active Ned Navarrete MD Active HYDROXYZINE HCL 25 MG TABS Take 1-2 tablets daily HYDROXYZINE HCL 89023692761 Active Ned Navarrete MD Active TOPAMAX 100 MG TABS 1 tablet daily TOPIRAMATE 54 196010553 No Longer Active Ned Navarrete MD Active AMOXICILLIN 500 MG CAPS 2 po BID x 10 days AMOX ICILLIN 08698468959 No Longer Active Saskia Torri Madril MD PhD Active NAPROSYN 375 MG TAB 1 twice a day as needed for chest pain 04/01 NAPROXEN 95210170044 No Longer Active Saskia Simon MD PhD Active HYDROCORTISONE 2.5 % EXT CREA Apply three times a day to aff ected area HYDROCORTISONE 71198803203 No Longer Active Ned Navarrete MD Active LORATADINE 10 MG TABS 1 tablet by mouth daily L ORATADINE 14453046141 Active Mariana Moses APRN Active TOPIRAMATE 50 MG TABS 1 QD TOPIRAMATE 04670032595 No Longer Active Ned Navarrete MD Active FANAPT 6 MG TABS 1 BID ILOPERIDONE 04993192557 No L onger Active Ned Navarrete MD Active CIPROFLOXACIN HCL 0.3 % SOLN 1 drop in right eye every 2 hours for 2 days, then 1 drop four times a day CIPROFLOXACIN HCL 65952659738 No Longer Active Ned Navarrete MD Active LORATADINE 10 MG TABS 1 tablet by mouth daily L ORATADINE 42959702545 No Longer Active Ned Navarrete MD Active RANITIDINE HCL 150 MG CAPS 1 twice a day RANITI DINE HCL 02753585507 No Longer Active Ned Navarrete MD Active RANITIDINE HCL 150 MG CAPS 1 twice a day RANITIDINE HCL 150 MG CAPS 077990 RANITIDINE HCL Inactive LORATADINE 10 MG TABS 1 tablet by mouth daily LORATADINE 10 MG TABS 189200 LORATADINE Inactive CIPROFLOXACIN HCL 0.3 % SOLN 1 drop in right eye every 2 hours for 2 days, then 1 drop four times a day CIPROFLOXACIN HCL 0.3 % SOLN 219417 CIPROFLOXACIN HCL Inactive FANAPT 6 MG TABS 1 BID FANAPT 6 MG TABS ILO PERIDONE Inactive TOPIRAMATE 50 MG TABS 1 QD TOPIRAMATE 50 MG TABS 1 02155 TOPIRAMATE Inactive HYDROCORTISONE 2.5 % EXT CREA Apply three times a day to aff ected area HYDROCORTISONE 2.5 % EXT CREA 250408 HYDROCORTIS ONE Inactive NAPROSYN 375 MG TAB [...] by mouth daily OMEPRAZOLE 20 MG CPDR 726787 OMEPRAZOLE Inactive BIOTIN 1000 MCG TABS Take 2 tablets daily BIOTIN 1000 MCG TABS 057921 BIOTIN Inactive [facility] MEL[facility] 3 MG TABS Take 1 tablet at bedtime. 2013 [facility] MEL[facility] 3 MG TABS 454344 MELATONIN Inactive ZOFRAN ODT 4 MG TBDP 1 po q6hr PRN Nausea ZOFRAN ODT 4 MG TBDP 755878 ONDANSETRON Inactive ORTHO TRI-CYCLEN (28) 0.18/0.215/0.25 MG-35 MCG TABS 1 daily ORTHO TRI-CYCLEN (28) 0.18/0.215/0.25 MG-35 MCG TABS 171476 NORGESTIM-ETH ESTRAD TRIPHASIC Inactive AMOXICILLIN 500 MG CAPS 2 po BID x 10 days AMOXICILLIN 500 MG CAPS 440543 AMOXICILLIN Inactive ZITHROMAX Z-CHACE 250 MG TABS 2 today, then 1 daily for 4 days 201 10/06/11 ZITHROMAX Z-CHACE 250 MG TABS 7102111 AZITHROMYCIN Inac tive Advance Directives Directive Description [...] 16 yo)) Fluzone preservative free (>3 yrs.) [[id number]] Influenza, seasonal, injectable, preservative free MPSV4 (meningococcal polysaccharide vaccination) Menactra meningococcal polysaccharide vaccine (MPSV4) hepatitis A immunization #1 Havrix-Pedi hepa titis A vaccine, unspecified formulation Adacel immunization Adacel [[id number]] tetanus toxo id, reduced diphtheria toxoid, and [...] Value Unit Range Description blood pressure, diastolic 70 mm[Hg] BP michele blood pressure, systolic 111 mm[Hg] BP sys height E&M 67 [in_us] Bdy height pulse rate E&M 56 /min Heart rate temperature E&M 98.2 [degF] Body temp erature weight E&M 142.6 [lb_av] Weight Measure d blood pressure, diastolic 76 mm[Hg] BP michele [...] Name Value Unit Range Description Lab Report: [facility] Chemistry human chorionic gonadotropin , urine, qualitative (urine test) Negative Negative Encounters Code Encounter Date Provider Facility CPT-20431 Level 3 Est. Patient 17:42:32 CDT Ned Navarrete MD [facility] CPT-94360 Level 3 Est. Patient 11:04:31 TEACHER EDUCATION DIRECTOR Mariana Torrez APRN [facility] CPT-41999 Level 4 Est. Patient 12:27:05 TEACHER EDUCATION DIRECTOR Ned Navarrete MD [facility] CPT-46235 Level 3 Est. Patient 11:31:58 TEACHER EDUCATION DIRECTOR Ned Navarrete MD [facility] CPT-13479 Level 3 Est. Patient 16:49:32 CDT Ned Navarrete MD [facility] CPT-75839 Level 4 Est. Patient 14:11:59 TEACHER EDUCATION DIRECTOR Saskia green MD PhD [facility] CPT-17828 Level 3 Est. Patient 17:34:25 CDT Ned Navarrete MD [facility] CPT-88061 Level 3 Est. Patient 17:34:19 CDT Ned Navarrete MD [facility] CPT-71725 Level 3 Est. Patient 13:46:05 CDT Ned Navarrete MD [facility] CPT-58189 Level 3 Est. Patient 16:55:47 TEACHER EDUCATION DIRECTOR Ned Navarrete MD [facility] CPT-83769 Level 2 Est. Patient 17:33:08 TEACHER EDUCATION DIRECTOR Ned Navarrete MD [facility] CPT-38943 Level 3 Est. Patient 16:25:26 TEACHER EDUCATION DIRECTOR Ned Navarrete MD [facility] Procedures Code Procedure Name Date Entry Date Standard Desc ription CPT-033 [facility] Med Screen 10:29:44 CDT CPT-03483 Administration 2+ single or combination vaccines inc oral 14:02:47 TEACHER EDUCATION DIRECTOR CPT-90214 Administration single or combination vac cine inc oral 14:02:47 TEACHER EDUCATION DIRECTOR CPT-27493 Hepatitis A ped/adol 2 dose schedule 14:02:47 TEACHER EDUCATION DIRECTOR CPT-62177 Gardasil 14:02:47 TEACHER EDUCATION DIRECTOR CPT-41792 Administration single or combination vac cine inc oral 11:40:38 TEACHER EDUCATION DIRECTOR CPT-34137 Gardasil 11:40:38 TEACHER EDUCATION DIRECTOR CPT-49200 Administration single or combination vac cine inc oral 09:45:00 CDT CPT-51448 Influenza Preservative Free split virus >age 3 09:45:00 CDT CPT-72777 Venipuncture Draw Fee 07:59:02 CDT
--- OUTSIDE RECORDS SUMMARY | 2019-10-10 20:55 | XMS REPORT | Clinical Summary ---
Author Author Admin, Son Chan Organization [facility] Address Unknown Phone Allergies, Adverse Reactions, Alerts [...] MD Dizziness and giddiness Gastroenteritis 558.9 Active Marinaa Moses APR N Other and unspecified noninfectious [...] 1 po q6hr PRN Nausea ONDADOREEN RODRIGUEZN 99347931478 Active Mariana Moses APRN Active OMEPRAZOLE 20 MG CPDR 1 tablet by mouth daily O MEPRAZOLE 34415411988 No Longer Active Mariana Moses APRN Active LATUDA 80 MG TABS 1 tablet daily LURASIDONE HCL 14429387801 No Longer Active Mariana Moses APRN Active ZOVIRAX 400 MG TABS Take 1 tablet every 8 hours as needed 2 ACYCLOVIR 78557393786 No Longer Active Ned Navarrete MD Activ e ZITHROMAX Z-CHACE 250 MG TABS 2 today, then 1 daily for 4 days 201 10/06/11 AZITHROMYCIN 73950215420 No Longer Active Ned Navarrete MD Active HYDROXYZINE HCL 25 MG TABS Take 1-2 tablets daily HYDROXYZINE HCL 20456386042 Active Ned Navarrete MD Active [facility] MELAT[facility] 3 MG TABS Take 1 tablet at bedtime. MELATONIN 48712977809 Active Ned Navarrete MD Active BIOTIN 1000 MCG TABS Take 2 tablets daily BIOTIN 85434654608 Active Ned Navarrete MD Active TOPAMAX 100 MG TABS 1 tablet daily TOPIRAMATE 54 238382211 No Longer Active Ned Navarrete MD Active AMOXICILLIN 500 MG CAPS 2 po BID x 10 days AMOX ICILLIN 72065694618 No Longer Active Saskia Simon MD PhD Active NAPROSYN 375 MG TAB 1 twice a day as needed for chest pain 04/01 NAPROXEN 94663665885 No Longer Active Saskia Simon MD PhD Active HYDROCORTISONE 2.5 % EXT CREA Apply three times a day to aff ected area HYDROCORTISONE 26857574562 No Longer Active Ned Navarrete MD Active LORATADINE 10 MG TABS 1 tablet by mouth daily L ORATADINE 42077264878 Active Mariana Moses APRN Active ORTHO TRI-CYCLEN (28) 0.18/0.215/0.25 MG-35 MCG TABS 1 daily 2 NORGESTIM-ETH ESTRAD TRIPHASIC 42388158719 Active Mariana Moses APRN Active TOPIRAMATE 50 MG TABS 1 QD TOPIRAMATE 36158185855 No Longer Active Ned Navarrete MD Active FANAPT 6 MG TABS 1 BID ILOPERIDONE 90193873193 No L onger Active Ned Navarrete MD Active CIPROFLOXACIN HCL 0.3 % SOLN 1 drop in right eye every 2 hours for 2 days, then 1 drop four times a day CIPROFLOXACIN HCL 68320077906 No Longer Active Ned Navarrete MD Active LORATADINE 10 MG TABS 1 tablet by mouth daily L ORATADINE 24621463639 No Longer Active Ned Navarrete MD Active RANITIDINE HCL 150 MG CAPS 1 twice a day RANITI DINE HCL 14621065598 No Longer Active Ned Navarrete MD Active RANITIDINE HCL 150 MG CAPS 1 twice a day RANITIDINE HCL 150 MG CAPS 107519 RANITIDINE HCL Inactive LORATADINE 10 MG TABS 1 tablet by mouth daily LORATADINE 10 MG TABS 733240 LORATADINE Inactive CIPROFLOXACIN HCL 0.3 % SOLN 1 drop in right eye every 2 hours for 2 days, then 1 drop four times a day CIPROFLOXACIN HCL 0.3 % SOLN 223585 CIPROFLOXACIN HCL Inactive FANAPT 6 MG TABS 1 BID FANAPT 6 MG TABS ILO PERIDONE Inactive TOPIRAMATE 50 MG TABS 1 QD TOPIRAMATE 50 MG TABS 1 32311 TOPIRAMATE Inactive HYDROCORTISONE 2.5 % EXT CREA Apply three times a day to aff ected area HYDROCORTISONE 2.5 % EXT CREA 585671 HYDROCORTIS ONE Inactive NAPROSYN 375 MG TAB 1 twice a day as needed for chest pain 04/01 NAPROSYN 375 MG TAB 19790729 NAPROXEN Inactive TOPAMAX 100 MG TABS 1 tablet daily TOPAMAX 100 MG TABS 308943 TOPIRAMATE Inactive ZOVIRAX 400 MG TABS Take 1 tablet every 8 hours as needed 2 ZOVIRAX 400 MG TABS 019259 ACYCLOVIR Inactive LATUDA 80 MG TABS 1 tablet daily LATUDA 80 MG TA BS LURASIDONE HCL Inactive OMEPRAZOLE 20 MG CPDR 1 tablet by mouth daily OMEPRAZOLE 20 MG CPDR 954177 OMEPRAZOLE Inactive AMOXICILLIN 500 MG CAPS 2 po BID x 10 days AMOXICILLIN 500 MG CAPS 809532 AMOXICILLIN Inactive ZITHROMAX Z-CHACE 250 MG TABS 2 today, then 1 daily for 4 days 201 10/06/11 ZITHROMAX Z-CHACE 250 MG TABS 2010291 AZITHROMYCIN Inac tive Advance Directives Directive Description [...] 16 yo)) Fluzone preservative free (>3 yrs.) [[id number]] Influenza, seasonal, injectable, preservative free MPSV4 (meningococcal polysaccharide vaccination) Menactra meningococcal polysaccharide vaccine (MPSV4) hepatitis A immunization #1 Havrix-Pedi hepa titis A vaccine, unspecified formulation Adacel immunization Adacel [[id number]] tetanus toxo id, reduced diphtheria toxoid, and [...] 142-424 Encounters Code Encounter Date Provider Facility CPT-59028 Level 3 Est. Patient 11:04:31 INTERNATIONAL CONTROLLER Mariana Torrez APRN [facility] CPT-88469 Level 4 Est. Patient 12:27:05 INTERNATIONAL CONTROLLER Ned Navarrete MD [facility] CPT-97010 Level 3 Est. Patient 11:31:58 INTERNATIONAL CONTROLLER Ned Navarrete MD [facility] CPT-92169 Level 3 Est. Patient 16:49:32 CDT Ned Navarrete MD [facility] CPT-87610 Level 4 Est. Patient 14:11:59 INTERNATIONAL CONTROLLER Saskia green MD PhD [facility] CPT-09301 Level 3 Est. Patient 17:34:25 CDT Ned Navarrete MD [facility] CPT-24122 Level 3 Est. Patient 17:34:19 CDT Ned Navarrete MD [facility] CPT-45289 Level 3 Est. Patient 13:46:05 CDT Ned Navarrete MD [facility] CPT-02524 Level 3 Est. Patient 16:55:47 INTERNATIONAL CONTROLLER Ned Navarrete MD [facility] CPT-93217 Level 2 Est. Patient 17:33:08 INTERNATIONAL CONTROLLER Ned Navarrete MD [facility] CPT-34821 Level 3 Est. Patient 16:25:26 INTERNATIONAL CONTROLLER Ned Navarrete MD [facility] Procedures Code Procedure Name Date Entry Date Standard Desc ription CPT-033 [facility] Med Screen 10:29:44 CDT CPT-20727 Administration 2+ single or combination vaccines inc oral 14:02:47 INTERNATIONAL CONTROLLER CPT-75166 Administration single or combination vac cine inc oral 14:02:47 INTERNATIONAL CONTROLLER CPT-09603 Hepatitis A ped/adol 2 dose schedule 14:02:47 INTERNATIONAL CONTROLLER CPT-69287 Gardasil 14:02:47 INTERNATIONAL CONTROLLER CPT-26871 Administration single or combination vac cine inc oral 11:40:38 INTERNATIONAL CONTROLLER CPT-41611 Gardasil 11:40:38 INTERNATIONAL CONTROLLER CPT-70766 Administration single or combination vac cine inc oral 09:45:00 CDT CPT-80358 Influenza Preservative Free split virus >age 3 09:45:00 CDT CPT-04085 Venipuncture Draw Fee 07:59:02 CDT
== END 2019-10-09 17:18 | disposition home or self-care (01) ==
LOC: ER 16:12
DX: M23.91 Unspecified internal derangement of right knee (principal); F17.290 Nicotine dependence, other tobacco product, uncomplicated; W54.1XXA Struck by dog, initial encounter; Y92.009 Unspecified place in unspecified non-institutional (private) residence as the place of occurrence of the external cause
CPT/HCPCS: 73562

== ENCOUNTER → 2019-10-19 | Outpatient (CLI) | payer SELFPAY ==
--- NOTE | 2019-10-19 16:01 | Diagnostic Imaging Report ---
PROCEDURE: MRI right joint lower extremity without contrast. TECHNIQUE: Multiplanar, multisequence non contrast-enhanced MRI of the right lower extremity was accomplished. INDICATION: Right knee pain from twisting injury. COMPARISON: Radiographs from 10/09/2019. FINDINGS: No acute fracture or dislocation is seen in the right knee. There is mild lateral patellar tilt and subluxation without dislocation. No focal osseous lesions are seen. There is no significant joint effusion. The articular cartilage in all three compartments demonstrate no full-thickness defects. No tear is seen in the medial or lateral menisci. The anterior and posterior cruciate ligaments are intact. There is a small 9 x 5 mm cystic structure posterior to the posterior cruciate ligament, may resent a small pericruciate cyst. The medial collateral ligament and the lateral collateral ligamentous complex are intact. The extensor mechanism is intact. The medial and lateral retinacula are intact. There is a very small Bennett's cyst. There is soft tissue edema in the superolateral aspect of Hoffa's fat pad (image 14, series 6). The soft tissues about the right knee are otherwise unremarkable. IMPRESSION: 1. No meniscus or ligament tear is seen in the right knee. 2. Small pericruciate ganglion cyst posteriorly. A very small Bennett's cyst. 3. Mild lateral patellar tilt and subluxation. Edema in Hoffa's fat pad can be seen with patellofemoral impingement. Dictated by: Dictated on workstation # [id number]
== END ==
LOC: RAD 14:33
PROVIDERS: ATTEND Physician Assistant
DX: S83.011A Lateral subluxation of right patella, initial encounter (principal); M67.461 Ganglion, right knee; M71.21 Synovial cyst of popliteal space [Baker], right knee; X50.1XXA Overexertion from prolonged static or awkward postures, initial encounter
CPT/HCPCS: 73721